=== PATIENT | male | born 1935 | race Caucasian/White ===

== ENCOUNTER 2017-06-15 07:26 | Day surgery (SDC) | payer OTHER, MEDICARE ==
[2017-06-13 13:03] VITALS: BMI 28.0
[2017-06-15] MEDS: TROPICAMIDE 1% OPHTH SOLN 15 ML BOTTLE ONE ×3 (08:45→08:55)
[2017-06-15] MEDS: PHENYLEPHRINE 2.5% OPHTH SOLN 15 ML BOTTLE ONE ×3 (08:45→08:55)
[2017-06-15] MEDS: CIPROFLOXACIN 0.3% EYE DROPS 5 ML BOTTLE ONE ×3 (08:45→08:55)
[2017-06-15] MEDS: CYCLOPENTOLATE 2% OPHTH SOLN 2 ML BOTTLE ONE ×3 (08:45→08:55)
[2017-06-15] MEDS ORDERED: BSS (NA/CA/MG/K) BALANCED SALT SOLUTION OPHTH SOLN 15 ML BOTTLE ONE (09:33)
[2017-06-15] MEDS ORDERED: LIDOCAINE 1% P/F 10 MG/ML VIAL ONE (09:33)
[2017-06-15] MEDS ORDERED: CARBACHOL 0.01% INTRA-OCULAR 1.5 ML VIAL ONE (09:33)
[2017-06-15] MEDS ORDERED: MIDAZOLAM HCL 2 MG/2 ML SINGLE DOSE VIAL ONE (09:38)
[2017-06-15 10:21] VITALS: PULSE 75; TEMP 98
[2017-06-15 10:55] VITALS: BP 110/64
--- NOTE | 2017-06-15 13:09 | OP ---
DATE OF OPERATION: 06/15/2017 OPERATIVE PROCEDURE: Lens phacoemulsification with posterior chamber intraocular lens placement right eye. PREOPERATIVE DIAGNOSIS: Visually significant cataract of right eye. POSTOPERATIVE DIAGNOSIS: Visually significant cataract of right eye. SURGEON: Jesus Mejia M.D. ANESTHESIA: MAC PROCEDURE: The patient was brought to the operating room and placed under monitored anesthesia care by Anesthesia. A drop of tetracaine was then placed over the right eye. The patient was then prepped and draped in the usual sterile manner. A speculum was then placed over the right eye. The eye was then well irrigated with copious amounts of BSS (balanced salt solution). The operating microscope was then moved into position. A paracentesis was performed using a 15 degree blade. At this point 0.5 mL of 1% preservative-free lidocaine was injected into the anterior chamber. Amvisc Plus was then injected into the anterior chamber. A clear corneal incision was then formed using a 2.2 mm keratome. A capsulorrhexis was then performed in a continuous circular fashion beginning with a cystotome and completed with Utrata forceps. Hydrodissection was then performed using BSS on a cannula. The phaco probe was then introduced through the corneal wound and the cataract was removed using the phaco chop technique. Approximately 3 seconds of absolute phaco time was used. The remaining cortex was then removed using irrigation and aspiration with an I/A probe. The capsule was then filled with regular Amvisc and the capsule was noted to be intact. A previously selected foldable posterior chamber intraocular lens was then injected into the capsule through the corneal wound using a lens injector. It was then dialed into position using a Sinskey hook. The Amvisc was then removed using irrigation and aspiration. Miostat was then injected through the paracentesis to constrict the pupil. The paracentesis and corneal wound were then hydrated and noted to be watertight. A drop of Maxitrol was then placed over the eye. The speculum was removed and clear shield was taped over the eye. The patient tolerated the procedure well and there were no surgical complications. The patient was asked to follow up in my office the next day. JESUS MEJIA M.D. DESTINY/[id number]
== END 2017-06-15 10:57 | disposition home or self-care (01) ==
LOC: FASU 07:26
PROVIDERS: ATTEND Ophthalmology
PROC: 08RJ3JZ Replacement of Right Lens with Synthetic Substitute, Percutaneous Approach (ICD-10-PCS; principal; 2017-06-15 09:52)
DX: H26.9 Unspecified cataract (principal)

== ENCOUNTER 2017-07-06 08:06 | Day surgery (SDC) | payer OTHER, MEDICARE ==
[2017-06-30 14:51] VITALS: BMI 28.0
[2017-07-06] MEDS: TROPICAMIDE 1% OPHTH SOLN 15 ML BOTTLE ONE ×3 (10:00→10:10)
[2017-07-06] MEDS: CYCLOPENTOLATE 2% OPHTH SOLN 2 ML BOTTLE ONE ×3 (10:00→10:10)
[2017-07-06] MEDS: CIPROFLOXACIN 0.3% EYE DROPS 5 ML BOTTLE ONE ×3 (10:00→10:10)
[2017-07-06] MEDS: PHENYLEPHRINE 2.5% OPHTH SOLN 15 ML BOTTLE ONE ×3 (10:00→10:10)
[2017-07-06 10:05] VITALS: PULSE 74
[2017-07-06] MEDS ORDERED: CARBACHOL 0.01% INTRA-OCULAR 1.5 ML VIAL ONE (10:11)
[2017-07-06] MEDS ORDERED: MIDAZOLAM HCL 2 MG/2 ML SINGLE DOSE VIAL ONE ×2 (11:36→11:37)
[2017-07-06 12:23] VITALS: BP 118/68; TEMP 98
--- NOTE | 2017-07-06 14:41 | OP ---
DATE OF OPERATION: 07/06/2017 OPERATIVE PROCEDURE: Lens phacoemulsification with posterior chamber intraocular lens placement, left eye. PREOPERATIVE DIAGNOSIS: Visually significant cataract of left eye. POSTOPERATIVE DIAGNOSIS: Visually significant cataract of left eye. SURGEON: Jesus Mejia MD ANESTHESIA: MAC. PROCEDURE: The patient was brought to the operating room and placed under monitored anesthesia care by Anesthesia. A drop of Tetracaine was then placed over the left eye. The patient was then prepped and draped in the usual sterile manner. A speculum was then placed over the left eye. The eye was then well irrigated with copious amounts of BSS (balanced salt solution). The operating microscope was then moved into position. A paracentesis was performed using a 15-degree blade. At this point, 0.5 mL of 1% preservative-free lidocaine was injected into the anterior chamber. Amvisc Plus was then injected into the anterior chamber. A clear corneal incision was then formed using a 2.2-mm keratome. A capsulorrhexis was then performed in a continuous circular fashion beginning with a cystotome, completed with an Utratas forceps. Hydrodissection was then performed using BSS on a cannula. The phaco probe was then introduced through the corneal wound and the cataract was removed using the phaco chop technique. Approximately 3 seconds of absolute phaco time was used. The remaining cortex was then removed using irrigation and aspiration with an I/A probe. he capsule was then filled with regular Amvisc and the capsule was noted to be intact. A previously selected foldable posterior chamber intraocular lens was then injected into the capsule through the corneal wound using a lens injector. It was then dialed into position using a Sinskey hook. The Amvisc was then removed using irrigation and aspiration. Miostat was then injected through the paracentesis to constrict the pupil. The paracentesis and corneal wound were then hydrated and noted to be watertight. A drop of Maxitrol was then placed over the eye. The speculum was removed and clear shield was taped over the eye. The patient tolerated the procedure well and there were no surgical complications. The patient was asked to follow up in my office the next day. JESUS MEJIA M.D. [id number]
== END 2017-07-06 12:41 | disposition home or self-care (01) ==
LOC: FASU 08:06
PROVIDERS: ATTEND Ophthalmology
PROC: 08RK3JZ Replacement of Left Lens with Synthetic Substitute, Percutaneous Approach (ICD-10-PCS; principal; 2017-07-06 11:37)
DX: H26.8 Other specified cataract (principal)

== ENCOUNTER 2017-09-11 07:24 | Inpatient (IN) | payer OTHER, MEDICARE ==
--- NOTE | 2017-09-11 07:30 | PDOC ---
History of Present Illness - General History Source: Patient, Old Records Exam Limitations: No Limitations - History of Present Illness Initial Comments: 09/11/17 07:48 The patient is a 82 year old male brought via EMS, with a significant past medical history of, who presents to the emergency department with cold like symptoms for the last 2 weeks. He reports that he has been having a fever during this time, which today was as high as 100.8 degrees F. He also reports dizziness, cough and chest pain when he coughs. He notes that his cough is productive of a white phlegm. He reports that he did experience nausea today and has noticed that his stool have been softer than usual. He states that he saw his PMD yesterday who told him he had a cold but that everything else was fine. He notes that he is currently experiencing shortness of breath because he became emotional as he came to the ED. The patient denies headache, chills, vomit, diarrhea and constipation. Denies dysuria, frequency, urgency and hematuria. Allergies: sertraline, lisinopril, penicillins, Pravachol, Zocor Past surgical history: Hernia repair, Aortic/Mitral valve replacement; CABG; AICD, left knee arthroscopic surgery. Social history: No alcohol, tobacco or drug use reported PMD: Dr. Hector Desai [place] Worker: Dr. 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) COPD: No CHF: Yes Dementia: No Diabetes: No GI Disorders: No Disorders: No HTN: Yes Hypercholesterolemia: Yes Liver Disease: No Seizures: No Thyroid Disease: Yes (Hypothyroid) - Surgical History Abdominal Surgery: No Appendectomy: No Cardiac Surgery: Yes (Aortic/Mitral valve replacement; CABG; AICD) Cholecystectomy: No Lung Surgery: No Neurologic Surgery: No Orthopedic Surgery: Yes (Left knee arthoscopy) - Immunization History Immunization Up to Date: Yes - Suicide/Smoking/Psychosocial Hx Smoking Status: Yes Smoking History: Never smoked Have you smoked in the past 12 months: No Number of Cigarettes Smoked Daily: 20 If you are a former smoker, when did you quit?: 4 years ago Hx Alcohol Use: No Drug/Substance Use Hx: No Substance Use Type: None Hx Substance Use Treatment: No <Adriana Johnson - Last Filed: 09/11/17 09:40> - Past Medical History Allergies/Adverse Reactions: Allergies Allergy/AdvReac Type Severity Reaction Status Date / Time lisinopril Allergy Intermediate Cough Verified 07/06/17 09:49 Penicillins Allergy Intermediate Rash Verified 07/06/17 09:49 pravastatin sodium Allergy Intermediate MUSCLE PAIN Verified 07/06/17 09:49 [From Pravachol] simvastatin [From Zocor] Allergy Intermediate MUSCLE PAIN Verified 07/06/17 09: 49 sertraline Allergy Unknown Verified 07/06/17 09:49 Home Medications: Ambulatory Orders Allopurinol [Zyloprim -] 300 mg PO DAILY 12/19/15 Aspirin [ASA -] 81 mg PO DAILY 12/19/15 Clopidogrel Bisulfate [Plavix -] 75 mg PO DAILY 12/19/15 Levothyroxine [Synthroid -] 25 mcg PO DAILY 12/19/15 Paroxetine HCl [Paxil -] 10 mg PO DAILY 12/19/15 Rosuvastatin [Crestor -] 20 mg PO HS 12/19/15 Carvedilol [Coreg -] 3.125 mg PO HS #30 tablet 03/12/16 Spironolactone [Aldactone -] 25 mg PO DAILY #30 tablet 03/12/16 Furosemide [Lasix -] 40 mg PO DAILY 06/30/16 Colesevelam HCl [Welchol (Nf)] 625 mg PO DAILY 06/13/17 Review of Systems - Review of Systems Able to Perform ROS?: Yes Comments:: 09/11/17 07:49 GENERAL/CONSTITUTIONAL: (+) Fever. No chills. No weakness. HEAD, EYES, EARS, NOSE AND THROAT: No change in vision. No ear pain or discharge. No sore throat.- CARDIOVASCULAR: (+) Shortness of breath and chest pain RESPIRATORY: (+) Cough. No wheezing, or hemoptysis. GASTROINTESTINAL: (+) Nausea. No vomiting, diarrhea or constipation. GENITOURINARY: No dysuria, frequency, or change in urination. MUSCULOSKELETAL: No joint or muscle swelling or pain. No neck or back pain. SKIN: No rash NEUROLOGIC: (+) Dizziness. No headache, loss of consciousness, or change in strength/sensation. ENDOCRINE: No increased thirst. No abnormal weight change HEMATOLOGIC/LYMPHATIC: No anemia, easy bleeding, or history of blood clots. ALLERGIC/IMMUNOLOGIC: No hives or skin allergy. <Doc Romero - Last Filed: 09/11/17 07:48> *Physical Exam - Vital Signs Last Vital Signs Temp Pulse Resp BP Pulse Ox 100.1 F H 97 H 20 132/78 94 L 09/11/17 07:33 09/11/17 07:33 09/11/17 07:33 09/11/17 07:33 09/11/17 07:33 - Physical Exam Comments: 09/11/17 07:49 GENERAL: Awake, alert, and fully oriented, in no acute distress HEAD: No signs of trauma, normocephalic, atraumatic EYES: PERRLA, EOMI, sclera anicteric, conjunctiva clear ENT: Auricles normal inspection, hearing grossly normal, nares patent, oropharynx clear without exudates. Moist mucosa NECK: Normal ROM, supple, no lymphadenopathy, JVD, or masses LUNGS: (+) Mild conversational dyspnea. Slight coarse breath sounds at the bases bilaterally. No distress, speaks full sentences. HEART: (+) Systolic murmur. Regular rate and rhythm, normal S1 and S2, no rubs or gallops, peripheral pulses normal and equal bilaterally. ABDOMEN: Soft, nontender, normoactive bowel sounds. No guarding, no rebound. No masses EXTREMITIES : Normal inspection, Normal range of motion, no edema. No clubbing or cyanosis. NEUROLOGICAL: Cranial nerves II through XII grossly intact. Normal speech, no focal sensorimotor deficits SKIN: Warm, Dry, normal turgor, no rashes or lesions noted. <Doc Romero - Last Filed: 09/11/17 07:48> Heart Score/ECG Review - ECG Intrepretation Comment:: 09/11/17 08:33 paced at 75, no acute st/t wave findings <Adriana Johnson Last Filed: 09/11/17 09:40> ED Treatment Course - LABORATORY CBC & Chemistry Diagram: 09/11/17 07:59 09/11/17 07:59 <Adriana Johnson - Last Filed: 09/11/17 09:40> Medical Decision Making - Medical Decision Making 09/11/17 08:30 a/p: 82yo male with 2 weeks cough/congestion/flu-like illness -running fevers x 2 week -flu swab -cxr -ekg -labs -cultures -suspect influenza vs pna vs mucopurulent bronchitis -will give tylenol in the ED -will start ivf hydration -will monitor and reassess 09/11/17 09:[address] Shipman who will see the patient in consult 09/11/17 09:39 case discussed with PMD - Dr. Desai who accepts pt to service will start levaquin given sputum production will admit pt updated and agrees with the plan <Adriana Johnson - Last Filed: 09/11/17 09:40> *DC/Admit/Observation/Transfer - Attestations Scribe Attestion: 09/11/17 07:51 Documentation prepared by Doc Romero, acting as emergency medical service coordinator for Adriana Johnson DO <Doc Romero - Last Filed: 09/11/17 07:48> - Attestations Physician Attestion: 09/11/17 09:40 I, Dr. Adriana Johnson DO, attest that this document has been prepared under my direction and personally reviewed by me in its entirety. I further attest, that it accurately reflects all work, treatment, procedures and medical decision -making performed by me. <Adriana Johnson - Last Filed: 09/11/17 09:40> Diagnosis at time of Disposition: Dyspnea, Elevated troponin, Fever - Referrals Referrals: Hector Desai MD [Primary Care Provider] - - Patient Instructions - Post Discharge Activity
[2017-09-11] MEDS ORDERED: SODIUM CHLORIDE 0.9% 1000 ML INFUS.BAG IV ONE ×2 (07:40→15:08)
[2017-09-11] MEDS ORDERED: ONDANSETRON 4 MG/2 ML VIAL IVPUSH ONE ×2 (07:40→15:09)
[2017-09-11] MEDS ORDERED: FAMOTIDINE 20 MG/50 ML IVPB 20 MG/50 ML MG IVPB ONE ×2 (07:40→09:35)
[2017-09-11] MEDS ORDERED: ONDANSETRON 4 MG/2 ML VIAL ONE ×2 (08:06→15:22)
[2017-09-11 08:29] LABS: INR 1.13 (0.82-1.09); PROTHROMBIN TIME (PATIENT) 12.8 SEC (9.98-11.88)
[2017-09-11 08:32] LABS: ACTIVATED PTT 29.5 SECONDS (26.9-34.4)
[2017-09-11 08:42] LABS: ALBUMIN 3.5 g/dl (3.4-5.0); ALK PHOS 85 U/L (45-117); ANION GAP 7 (8-16); BILIRUBIN,TOTAL 0.8 mg/dL (0.2-1.0); BLOOD UREA NITROGEN 28 mg/dL (7-18); CALCIUM 8.3 mg/dL (8.5-10.1); CHLORIDE 112 mmol/L (98-107); CO2 22 mmol/L (21-32); CREATININE 1.8 mg/dL (0.7-1.3); GLUCOSE,RANDOM 107 mg/dL (74-106); LIPASE 169 U/L (73-393); MAGNESIUM 1.5 mg/dL (1.8-2.4); POTASSIUM 5.2 mmol/L (3.5-5.1); SGOT/AST 52 U/L (15-37); SGPT/ALT 77 U/L (12-78); SODIUM 141 mmol/L (136-145); TOT PROT 6.9 g/dl (6.4-8.2)
[2017-09-11 08:56] LABS: N-TERMINAL BNP 14278.51 pg/ml (5-450)
[2017-09-11] MEDS ORDERED: ASPIRIN 81 MG CHEWABLE TABLETS PO ONE (09:05)
[2017-09-11] MEDS ORDERED: ACETAMINOPHEN 325 MG TABLET (FP) PO ONE (09:17)
[2017-09-11] MEDS ORDERED: ACETAMINOPHEN 325 MG TABLET (FP) ONE (09:35)
[2017-09-11] MEDS ORDERED: ASPIRIN 81 MG CHEWABLE TABLETS ONE (09:35)
[2017-09-11] MEDS ORDERED: LEVOFLOXACIN 500 MG IVPB 500 MG/100 ML BAG IVPB ONE ×2 (09:37→10:13)
--- NOTE | 2017-09-11 09:39 | CON.CARD ---
Consult Consult Specialty:: Cardiology Reason for Consultation:: sob elevated tni - History of Present Illness History of Present Illness: The patient is a 82 year old male brought via EMS, with a significant past medical history of, who presents to the emergency department with cold like symptoms for the last 2 weeks. He reports that he has been having a fever during this time, which today was as high as 100.8 degrees F. He also reports dizziness, cough and chest pain when he coughs. He notes that his cough is productive of a white phlegm. He reports that he did experience nausea today and has noticed that his stool have been softer than usual. He states that he saw his PMD yesterday who told him he had a cold but that everything else was fine. He notes that he is currently experiencing shortness of breath because he became emotional as he came to the ED. The patient denies headache, chills, vomit, diarrhea and constipation. Denies dysuria, frequency, urgency and hematuria. Allergies: sertraline, lisinopril, penicillins, Pravachol, Zocor Past surgical history: Hernia repair, Aortic/Mitral valve replacement; CABG; AICD, left knee arthroscopic surgery. Social history: No alcohol, tobacco or drug use reported PMD: Dr. 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 Hawkins PMH s/p bio AVR and MV repair as per HPI Ongoing medical problems [employer] AICD BIvi-pacing 2015 Dr. 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 No: Aneurysm, Aortic Insufficiency, Aortic Stenosis, CAD, Deep Vein Thrombosis, CT, Mitral Insufficiency, Mitral Stenosis, Pulmonary Hypertension, Other Renal/: Yes: Renal Inusuff (CKD (stage 1)). No: Renal Failure, BPH, Cancer, Hematuria, Hemodialysis, Neurogenic Bladder, Renal Calculi, UTI, Other Psych: Yes: Anxiety, Other (affective dz) Musculoskeletal: Yes: Osteoarthritis Rheumatology: Yes: Gout. No: Fibromyalgia, Lupus, Rheumatoid Arthritis, Sarcoidosis, Vasculitis, Other Endocrine: Yes: Hypothyroidism, Other (Gluc intolerance) - Past Surgical History Past Surgical History: Yes: Permanent Pacemaker, Valve Replacement. No: None, AAA Repair, AICD, Amputation, Appendectomy, Arthrosocopy, AV Fistula/Graft, Bariatric Surgery, Breast Biopsy, Bypass, CABG, Carotid Endarterectomy, Cataract Removal, Cholecystectomy, Colectomy, Colonoscopy, Colostomy, Craniotomy , , Cystectomy, Hernia Repair, Hysterectomy, Ileal Conduit, Ileosotomy , Joint Replacement, Kidney Transplant, Laminectomy, Liver Transplant, Mastectomy, Nephrectomy, Oopherectomy, Orchiectomy, Prostatectomy, Splenectomy, Stent, Thoracotomy, TURP, Tonsillectomy, Tubal Ligation, Upper Endoscopy, Vasectomy, Vein Stripping/Ligation - Alcohol/Substance Use Hx Alcohol Use: No History of Substance Use: reports: None - Smoking History Smoking history: Never smoked Have you smoked in the past 12 months: No Aproximately how many cigarettes per day: 20 If you are a former smoker, when did you quit?: 4 years ago - Social History ADL: Independent 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 History of Recent Travel: Yes (went to [place] 1 week ago) Home Medications - Allergies Allergies/Adverse Reactions: Allergies Allergy/AdvReac Type Severity Reaction Status Date / Time lisinopril Allergy Intermediate Cough Verified 07/06/17 09:49 Penicillins Allergy Intermediate Rash Verified 07/06/17 09:49 pravastatin sodium Allergy Intermediate MUSCLE PAIN Verified 07/06/17 09:49 [From Pravachol] simvastatin [From Zocor] Allergy Intermediate MUSCLE PAIN Verified 07/06/17 09: 49 sertraline Allergy Unknown Verified 07/06/17 09:49 - Home Medications Home Medications: Ambulatory Orders Allopurinol [Zyloprim -] 300 mg PO DAILY 12/19/15 Aspirin [ASA -] 81 mg PO DAILY 12/19/15 Clopidogrel Bisulfate [Plavix -] 75 mg PO DAILY 12/19/15 Levothyroxine [Synthroid -] 25 mcg PO DAILY 12/19/15 Paroxetine HCl [Paxil -] 10 mg PO DAILY 12/19/15 Rosuvastatin [Crestor -] 20 mg PO HS 12/19/15 Carvedilol [Coreg -] 3.125 mg PO HS #30 tablet 03/12/16 Spironolactone [Aldactone -] 25 mg PO DAILY #30 tablet 03/12/16 Furosemide [Lasix -] 40 mg PO DAILY 06/30/16 Colesevelam HCl [Welchol (Nf)] 625 mg PO DAILY 06/13/17 Family Disease History - Family Disease History Family Disease History: Diabetes: Mother, Heart Disease: Mother Review of Systems - Review of Systems Constitutional: reports: No Symptoms Eyes: reports: No Symptoms HENT: reports: No Symptoms Neck: reports: No Symptoms Cardiovascular: reports: No Symptoms, Shortness of Breath Gastrointestinal: reports: No Symptoms Genitourinary: reports: No Symptoms Breasts: reports: No Symptoms Reported Musculoskeletal: reports: No Symptoms Integumentary: reports: No Symptoms Neurological: reports: No Symptoms Endocrine: reports: No Symptoms Hematology/Lymphatic: reports: No Symptoms Psychiatric: reports: No Symptoms Vital Signs: Vital Signs Temperature 100.1 F H 09/11/17 07:33 Pulse Rate 97 H 09/11/17 07:33 Respiratory Rate 20 09/11/17 07:33 Blood Pressure 132/78 09/11/17 07:33 O2 Sat by Pulse Oximetry (%) 97 09/11/17 08:18 Constitutional: Yes: Well Nourished, No Distress, Calm Eyes: Yes: WNL, Conjunctiva Clear, EOM Intact HENT: Yes: WNL, Atraumatic, Normocephalic Neck: Yes: WNL, Supple, Trachea Midline Respiratory: Yes: WNL, Regular, CTA Bilaterally Gastrointestinal: Yes: WNL, Normal Bowel Sounds Renal/: Yes: WNL Cardiovascular: Yes: WNL, Regular Rate and Rhythm Musculoskeletal: Yes: WNL Extremities: Yes: WNL Integumentary: Yes: WNL Neurological: Yes: WNL, Alert, Oriented ...Motor Strength: WNL Psychiatric: Yes: WNL, Alert, Oriented - Other Data Labs, Other Data: CBC, BMP 09/11/17 07:59 INR, PTT INR 1.13 (0.82-1.09) 09/11/17 07:59 Troponin, BNP 09/11/17 09/11/17 07:59 07:59 Troponin I 3.33 H* D B-Natriuretic Peptide 95811.51 H Cancelled Troponin, BNP 09/11/17 09/11/17 07:59 07:59 Troponin I 3.33 H* D B-Natriuretic Peptide 35476.51 H Cancelled Imaging - Results Chest X-ray: Image Reviewed (no i/e) EKG: Image Reviewed (bivi pacing) Problem List - Problems (1) Arteriosclerotic heart disease (ASHD) Code(s): I25.10 - ATHSCL HEART DISEASE OF [place] CORONARY ARTERY W/O ANG PCTRS (2) Dyspnea Code(s): R06.00 - DYSPNEA, UNSPECIFIED (3) Elevated troponin Code(s): R74.8 - ABNORMAL LEVELS OF OTHER SERUM ENZYMES (4) Fever Code(s): R50.9 - FEVER, UNSPECIFIED (5) Hypothyroid Code(s): E03.9 - HYPOTHYROIDISM, UNSPECIFIED Qualifiers: Hypothyroidism type: acquired Qualified Code(s): E03.9 - Hypothyroidism, unspecified (6) Sepsis Code(s): A41.9 - SEPSIS, UNSPECIFIED ORGANISM Qualifiers: Sepsis type: sepsis due to unspecified organism Qualified Code(s): A41.9 - Sepsis, unspecified organism (7) AICD (automatic cardioverter/defibrillator) present Code(s): Z95.810 - PRESENCE OF AUTOMATIC (IMPLANTABLE) CARDIAC DEFIBRILLATOR (8) Acute exacerbation of CHF (congestive heart failure) Code(s): I50.9 - HEART FAILURE, UNSPECIFIED (9) Acute exacerbation of congestive heart failure Code(s): I50.9 - HEART FAILURE, UNSPECIFIED Qualifiers: (10) Acute on chronic combined systolic and diastolic CHF, NYHA class 3 Code(s): I50.43 - ACUTE ON CHRONIC COMBINED SYSTOLIC AND DIASTOLIC HRT FAIL (11) Acute on chronic renal failure Code(s): N17.9 - ACUTE KIDNEY FAILURE, UNSPECIFIED; N18.9 - CHRONIC KIDNEY DISEASE, UNSPECIFIED Qualifiers: Acute renal failure type: unspecified Chronic kidney disease stage: stage 2 (mild) Qualified Code(s): N17.9 - Acute kidney failure, unspecified; N18.2 - Chronic kidney disease, stage 2 (mild); N18.2 - Chronic kidney disease, stage 2 (mild) (12) Acute on chronic systolic and diastolic heart failure, NYHA class 1 Code(s): I50.43 - ACUTE ON CHRONIC COMBINED SYSTOLIC AND DIASTOLIC HRT FAIL (13) Angioneurotic edema Code(s): T78.3XXA - ANGIONEUROTIC EDEMA, INITIAL ENCOUNTER Qualifiers: Encounter type: sequela Qualified Code(s): T78.3XXS - Angioneurotic edema, sequela (14) Anxiety and depression Code(s): F41.9 - ANXIETY DISORDER, UNSPECIFIED; F32.9 - MAJOR DEPRESSIVE DISORDER, SINGLE EPISODE, UNSPECIFIED (15) Aortic stenosis Code(s): I35.0 - NONRHEUMATIC AORTIC (VALVE) STENOSIS (16) Aortic valve replaced Code(s): Z95.2 - PRESENCE OF PROSTHETIC HEART VALVE (17) Arm swelling Code(s): M79.89 - OTHER SPECIFIED SOFT TISSUE DISORDERS (18) Artificial cardiac pacemaker Code(s): Z95.0 - PRESENCE OF CARDIAC PACEMAKER (19) Aspirin long-term use Code(s): Z79.82 - SIGNWRITER (CURRENT) USE OF ASPIRIN (20) CAD (coronary artery disease) Code(s): I25.10 - ATHSCL HEART DISEASE OF [place] CORONARY ARTERY W/O ANG PCTRS (21) CHF (congestive heart failure) Code(s): I50.9 - HEART FAILURE, UNSPECIFIED Qualifiers: Congestive heart failure type: diastolic Congestive heart failure chronicity: chronic Qualified Code(s): I50.32 - Chronic diastolic (congestive ) heart failure (22) Carotid artery disease Code(s): I77.9 - DISORDER OF ARTERIES AND ARTERIOLES, UNSPECIFIED Qualifiers: Laterality: left Qualified Code(s): I77.9 - Disorder of arteries and arterioles, unspecified (23) Carotid occlusion, left Code(s): I65.22 - OCCLUSION AND STENOSIS OF LEFT CAROTID ARTERY (24) Chronic renal insufficiency Code(s): N18.9 - CHRONIC KIDNEY DISEASE, UNSPECIFIED (25) DVT prophylaxis Code(s): [id number] - (26) Dysthymia (or depressive neurosis) Code(s): F34.1 - DYSTHYMIC DISORDER (27) Epigastric abdominal pain Code(s): R10.13 - EPIGASTRIC PAIN (28) Fluid collection (edema) in the arms, legs, hands and feet Code(s): R60.0 - LOCALIZED EDEMA (29) Gout Code(s): M10.9 - GOUT, UNSPECIFIED Qualifiers: Gout etiology: unspecified cause Presence of tophus: without tophus (30) Hyperlipidemia Code(s): E78.5 - HYPERLIPIDEMIA, UNSPECIFIED Qualifiers: Hyperlipidemia type: unspecified (31) Hypertensive heart and chronic kidney disease with heart failure and stage 1 through stage 4 chronic kidney disease, or chronic kidney disease Code(s): I13.0 - HYP HRT & CHR KDNY DIS W HRT FAIL AND STG 1-4/UNSP CHR KDNY; I50.9 - HEART FAILURE, UNSPECIFIED; N18.9 - CHRONIC KIDNEY DISEASE, UNSPECIFIED (32) 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 Code(s): I13.10 - HYP HRT & CHR KDNY DIS W/O HRT FAIL, W STG 1-4/UNSP CHR KDNY (33) Hyperuricemia Code(s): E79.0 - HYPERURICEMIA W/O SIGNS OF INFLAM ARTHRIT AND TOPHACEOUS DIS (34) Hypothyroid Code(s): E03.9 - HYPOTHYROIDISM, UNSPECIFIED Qualifiers: (35) ICD (implantable cardioverter-defibrillator) in place Code(s): Z95.810 - PRESENCE OF AUTOMATIC (IMPLANTABLE) CARDIAC DEFIBRILLATOR (36) Leg swelling Code(s): M79.89 - OTHER SPECIFIED SOFT TISSUE DISORDERS (37) Lipid disorder Code(s): E78.9 - DISORDER OF LIPOPROTEIN METABOLISM, UNSPECIFIED (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) Code(s): D47.2 - MONOCLONAL GAMMOPATHY (39) Nosebleed Code(s): R04.0 - EPISTAXIS (40) PAD (peripheral artery disease) Code(s): I73.9 - PERIPHERAL VASCULAR DISEASE, UNSPECIFIED (41) Pneumonia Code(s): J18.9 - PNEUMONIA, UNSPECIFIED ORGANISM Qualifiers: (42) Presence of combination internal cardiac defibrillator (ICD) and pacemaker Code(s): Z95.810 - PRESENCE OF AUTOMATIC (IMPLANTABLE) CARDIAC DEFIBRILLATOR (43) Proteinuria Code(s): R80.9 - PROTEINURIA, UNSPECIFIED Qualifiers: Proteinuria type: persistent Qualified Code(s): R80.1 - Persistent proteinuria, unspecified (44) Renal insufficiency Code(s): N28.9 - DISORDER OF KIDNEY AND URETER, UNSPECIFIED (45) Status cardiac pacemaker Code(s): Z95.0 - PRESENCE OF CARDIAC PACEMAKER (46) Status post mitral valve annuloplasty Code(s): Z98.89 - OTHER SPECIFIED POSTPROCEDURAL STATES * DO NOT USE * (47) Thrombophlebitis Code(s): I80.9 - PHLEBITIS AND THROMBOPHLEBITIS OF UNSPECIFIED SITE (48) Transaminitis Code(s): R74.0 - NONSPEC ELEV OF LEVELS OF TRANSAMNS & LACTIC ACID DEHYDRGNSE Assessment/Plan fever sob decompensated chf systolic elevted tnis s/p bio AVR and MV repair as per HPI [employer] AICD BIvi-pacing 2015 Dr. 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 2014 Plan; abx IV lasix telemetry serial cardiac enzymes
[2017-09-11] MEDS ORDERED: FUROSEMIDE 40 MG/4 ML INJECTABLE VIAL IVPUSH ONE (10:00)
[2017-09-11 10:07] LABS: BASO % 0.3 % (0-2.0); EOS % 0.7 % (0-4.5); HEMATOCRIT 43.3 % (35.4-49); HEMOGLOBIN 13.8 GM/dL (11.7-16.9); LYMPH % 11.4 % (8-40); MCH 30.7 pg (25.7-33.7); MCHC 31.9 g/dl (32.0-35.9); MEAN PLT VOLUME 8.9 fl (7.5-11.1); MONO % 8.7 % (3.8-10.2); NEUT % 78.9 % (42.8-82.8); PLATELET COUNT 146 K/MM3 (134-434); RBC 4.51 M/mm3 (4.00-5.60); RDW 15.6 % (11.9-15.9); WHITE BLOOD COUNT 9.7 K/mm3 (4.0-10.0)
[2017-09-11] MEDS ORDERED: FUROSEMIDE 40 MG/4 ML INJECTABLE VIAL ONE (10:13)
[2017-09-11 11:52] LABS: URINE APPEARANCE CLEAR; URINE BILIRUBIN NEGATIVE (NEGATIVE); URINE BLOOD NEGATIVE (NEGATIVE); URINE COLOR YELLOW; URINE GLUCOSE (UA) NEGATIVE (NEGATIVE); URINE KETONE NEGATIVE (NEGATIVE); URINE LEUK ESTERASE NEGATIVE (NEGATIVE); URINE NITRITE NEGATIVE (NEGATIVE); URINE UROBILINOGEN NEGATIVE mg/dL (0.2-1.0)
[2017-09-11 11:55] LABS: URINE PROTEIN 1+ (NEGATIVE)
[2017-09-11 11:57] LABS: EPI CELLS RARE /HPF (FEW); URINE HYALINE CAST 1 /lpf; URINE MUCUS RARE
--- NOTE | 2017-09-11 12:45 | HP ---
Admitting History and Physical - Primary Care Physician PCP: Hector Desai - Admission Chief Complaint: fever; dizziness cough History of Present Illness: The patient is a 82 year old male brought via EMS, with a significant past medical history of HTN with ASHD/CRI, who presents to the emergency department with abrupt onset of cough; chills, fever; dizziness, nausea, malaise which developed suddenly in the early hours of this morning. Prior to this, he was suffering from a sinusitis (symptoms mainly affecting the nose & sinuses) for the past 10 days; however, he did not have fever; malaise, nausea or diarrhea. He did have a mild cough but not as severe as what he described prior to admission. He notes that his cough is productive of a white phlegm. He reports that he did experience nausea today and has noticed that his stool have been softer than usual. He was seen in the office on , at which time he did not have a fever, and was not ill or toxic appearing. History Source: Patient Limitations to Obtaining History: No Limitations - Past Medical History COUNTER HAND: Yes: TIA Cardiovascular: Yes: CHF, HTN, Hyperlipdemia, Murmur. No: Aneurysm, Aortic Insufficiency, Aortic Stenosis, CAD, Deep Vein Thrombosis, MT, Mitral Insufficiency, Mitral Stenosis, Pulmonary Hypertension, Other Renal/: Yes: Renal Inusuff (CKD (stage 1)). No: Renal Failure, BPH, Cancer, Hematuria, Hemodialysis, Neurogenic Bladder, Renal Calculi, UTI, Other Heme/Onc: Yes: Other (MGUS) Psych: Yes: Anxiety, Other (affective dz) Musculoskeletal: Yes: Osteoarthritis Rheumatology: Yes: Gout. No: Fibromyalgia, Lupus, Rheumatoid Arthritis, Sarcoidosis, Vasculitis, Other Endocrine: Yes: Hypothyroidism, Other (Gluc intolerance) - Past Surgical History Past Surgical History: Yes: Permanent Pacemaker, Valve Replacement. No: None, AAA Repair, AICD, Amputation, Appendectomy, Arthrosocopy, AV Fistula/Graft, Bariatric Surgery, Breast Biopsy, Bypass, CABG, Carotid Endarterectomy, Cataract Removal, Cholecystectomy, Colectomy, Colonoscopy, Colostomy, Craniotomy , , Cystectomy, Hernia Repair, Hysterectomy, Ileal Conduit, Ileosotomy , Joint Replacement, Kidney Transplant, Laminectomy, Liver Transplant, Mastectomy, Nephrectomy, Oopherectomy, Orchiectomy, Prostatectomy, Splenectomy, Stent, Thoracotomy, TURP, Tonsillectomy, Tubal Ligation, Upper Endoscopy, Vasectomy, Vein Stripping/Ligation - Smoking History Smoking history: Never smoked Have you smoked in the past 12 months: No - Alcohol/Substance Use Hx Alcohol Use: No History of Substance Use: reports: None - Social History Usual Living Arrangement: Yes: Alone ADL: Independent 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 History of Recent Travel: Yes (went to [place] 1 week ago) Home Medications - Allergies Allergies/Adverse Reactions: Allergies Allergy/AdvReac Type Severity Reaction Status Date / Time lisinopril Allergy Intermediate Cough Verified 07/06/17 09:49 Penicillins Allergy Intermediate Rash Verified 07/06/17 09:49 pravastatin sodium Allergy Intermediate MUSCLE PAIN Verified 07/06/17 09:49 [From Pravachol] simvastatin [From Zocor] Allergy Intermediate MUSCLE PAIN Verified 07/06/17 09: 49 sertraline Allergy Unknown Verified 07/06/17 09:49 - Home Medications Home Medications: Ambulatory Orders Allopurinol [Zyloprim -] 300 mg PO DAILY 12/19/15 Aspirin [ASA -] 81 mg PO DAILY 12/19/15 Clopidogrel Bisulfate [Plavix -] 75 mg PO DAILY 12/19/15 Levothyroxine [Synthroid -] 25 mcg PO DAILY 12/19/15 Paroxetine HCl [Paxil -] 10 mg PO DAILY 12/19/15 Rosuvastatin [Crestor -] 20 mg PO HS 12/19/15 Carvedilol [Coreg -] 3.125 mg PO HS #30 tablet 03/12/16 Spironolactone [Aldactone -] 25 mg PO DAILY #30 tablet 03/12/16 Furosemide [Lasix -] 40 mg PO DAILY 06/30/16 Colesevelam HCl [Welchol (Nf)] 625 mg PO DAILY 06/13/17 Family Disease History - Family Disease History Family Disease History: Diabetes: Mother, Heart Disease: Mother Review of Systems - Review of Systems Constitutional: reports: Chills, Diaphoresis, Fever, Lethargy, Weakness Eyes: reports: No Symptoms HENT: reports: Nasal Congestion Neck: reports: No Symptoms Cardiovascular: reports: Shortness of Breath Respiratory: reports: Cough, SOB on Exertion Gastrointestinal: reports: Nausea Genitourinary: reports: No Symptoms Musculoskeletal: reports: Muscle Pain Integumentary: reports: No Symptoms Neurological: reports: Weakness (no focal deficits,coherent) Psychiatric: reports: Anxiety Physical Examination Vital Signs: Vital Signs Temperature 100.1 F H 09/11/17 07:33 Pulse Rate 75 09/11/17 12:06 Respiratory Rate 15 09/11/17 12:06 Blood Pressure 100/69 09/11/17 12:06 O2 Sat by Pulse Oximetry (%) 97 09/11/17 12:06 Findings/Remarks: skin--no acute lesions; old excoriations LLE head--NC eyes--eomi; anciteric; cataracts oral--no mucosal lesions appreciated neck--supple lungs--dimnished but clear bilat heart--RR abd--soft, BS quiet, NT ND ext--no CCE; ROM without pain, no soft tissue tenderness; no ischemic changes; pedal pulses bilat faint neuro--alert; coherent; but unsettled; follows commands; fully lucid; thoughts well organized; speech clear; no gross moteor/sen deficits; no rigidity or tremors Labs: CBC, BMP 09/11/17 07:59 09/11/17 07:59 Imaging - Results Chest X-ray: Report Reviewed EKG: Report Reviewed Problem List - Problems (1) Sepsis Assessment/Plan: based on clinical presentation of acute fever; dizziness, malaise. Nasal swab is negative for INfluenza; cause or organism unclear at this time; cultures taken, and started on Lavaquin. Code(s): A41.9 - SEPSIS, UNSPECIFIED ORGANISM Qualifiers: Sepsis type: sepsis due to unspecified organism Qualified Code(s): A41.9 - Sepsis, unspecified organism (2) Elevated troponin Assessment/Plan: unsure if this is a spurious elevation or if anyway associated with current acute condition (superimposed on acute febrile illness). PLAn follow serial enzymes Code(s): R74.8 - ABNORMAL LEVELS OF OTHER SERUM ENZYMES (3) AICD (automatic cardioverter/defibrillator) present Assessment/Plan: stable; has not fired Code(s): Z95.810 - PRESENCE OF AUTOMATIC (IMPLANTABLE) CARDIAC DEFIBRILLATOR (4) Acute on chronic renal failure Assessment/Plan: Bun/Cr stable Code(s): N17.9 - ACUTE KIDNEY FAILURE, UNSPECIFIED; N18.9 - CHRONIC KIDNEY DISEASE, UNSPECIFIED Qualifiers: Acute renal failure type: unspecified Chronic kidney disease stage: stage 2 (mild) Qualified Code(s): N17.9 - Acute kidney failure, unspecified; N18.2 - Chronic kidney disease, stage 2 (mild); N18.2 - Chronic kidney disease, stage 2 (mild) (5) Angioneurotic edema Assessment/Plan: no acute edema; but cannot take RADHA/ARBs Code(s): T78.3XXA - ANGIONEUROTIC EDEMA, INITIAL ENCOUNTER Qualifiers: Encounter type: sequela Qualified Code(s): T78.3XXS - Angioneurotic edema, sequela (6) MGUS (monoclonal gammopathy of unknown significance) Assessment/Plan: chronic; stable Code(s): D47.2 - MONOCLONAL GAMMOPATHY (7) Carotid occlusion, left Assessment/Plan: longstanding; on asa/plavix Code(s): I65.22 - OCCLUSION AND STENOSIS OF LEFT CAROTID ARTERY (8) Arteriosclerotic heart disease (ASHD) Assessment/Plan: elevation of BNP; but CXR does not show any heart failure (diastolic dysf???); as the TN is high: PLAN cont cardiac meds Code(s): I25.10 - ATHSCL HEART DISEASE OF [place] CORONARY ARTERY W/O ANG PCTRS (9) Dysthymia (or depressive neurosis) Assessment/Plan: cont SSRI Code(s): F34.1 - DYSTHYMIC DISORDER (10) Proteinuria Assessment/Plan: stable; not new Code(s): R80.9 - PROTEINURIA, UNSPECIFIED Qualifiers: Proteinuria type: persistent Qualified Code(s): R80.1 - Persistent proteinuria, unspecified (11) Aortic valve replaced Assessment/Plan: stable; followed by Cardiology Code(s): Z95.2 - PRESENCE OF PROSTHETIC HEART VALVE (12) Gout Assessment/Plan: no active gout; controlled with allopurino Code(s): M10.9 - GOUT, UNSPECIFIED Qualifiers: Gout etiology: unspecified cause Presence of tophus: without tophus (13) Hypothyroid Assessment/Plan: TFTs okay; on supplement Code(s): E03.9 - HYPOTHYROIDISM, UNSPECIFIED Qualifiers: Hypothyroidism type: acquired Qualified Code(s): E03.9 - Hypothyroidism, unspecified (14) Hyperlipidemia Assessment/Plan: controlled with statin Code(s): E78.5 - HYPERLIPIDEMIA, UNSPECIFIED Qualifiers: Hyperlipidemia type: unspecified Assessment/Plan 82 y/o M with chronic heart disease and multiple other co-morbidities whoi presents acutely ill suugestive of a septic condition, with elevated TNI ```````````````````````````````````````` Dr Desai
[2017-09-11] MEDS ORDERED: ALBUTEROL SO4 0.042% IH SOL 1.25 MG/3 ML VIAL.NEB NEB PRN (13:17)
[2017-09-11] MEDS: ROSUVASTATIN CA 10 MG TABLET (FP) PO SCH (22:27)
[2017-09-12] MEDS ORDERED: FUROSEMIDE 40 MG/4 ML INJECTABLE VIAL ONE (06:40)
[2017-09-12] MEDS: FUROSEMIDE 40 MG/4 ML INJECTABLE VIAL IVPUSH SCH ×2 (06:48→14:59)
[2017-09-12 08:18] LABS: HEMATOCRIT 40.1 % (35.4-49); HEMOGLOBIN 12.9 GM/dL (11.7-16.9); MCH 30.9 pg (25.7-33.7); MCHC 32.1 g/dl (32.0-35.9); MEAN CELL VOLUME 96.3 fl (80-96); MEAN PLT VOLUME 8.9 fl (7.5-11.1); PLATELET COUNT 130 K/MM3 (134-434); RBC 4.17 M/mm3 (4.00-5.60); RDW 15.8 % (11.9-15.9); WHITE BLOOD COUNT 8.7 K/mm3 (4.0-10.0)
[2017-09-12 08:32] LABS: CHLORIDE 109 mmol/L (98-107); POTASSIUM 4.9 mmol/L (3.5-5.1); SODIUM 141 mmol/L (136-145)
[2017-09-12] MEDS: LEVOTHYROXINE NA 25 MCG TABLET (FP) PO SCH (08:52)
[2017-09-12 09:04] LABS: ALBUMIN 3.2 g/dl (3.4-5.0); ANION GAP 11 (8-16); BILIRUBIN,TOTAL 1.1 mg/dL (0.2-1.0); BLOOD UREA NITROGEN 28 mg/dL (7-18); CALCIUM 8.6 mg/dL (8.5-10.1); CO2 21 mmol/L (21-32); GLUCOSE,RANDOM 86 mg/dL (74-106); SGOT/AST 29 U/L (15-37); SGPT/ALT 51 U/L (12-78); TOT PROT 6.5 g/dl (6.4-8.2)
[2017-09-12 09:13] LABS: ALK PHOS 72 U/L (45-117); URIC ACID 3.2 mg/dL (2.6-7.2)
[2017-09-12] MEDS ORDERED: FUROSEMIDE 40 MG TABLET (FP) PO SCH (10:00)
[2017-09-12] MEDS: ASPIRIN COATED 81 MG TABLET.EC PO SCH (10:10)
[2017-09-12] MEDS: CLOPIDOGREL BISULFATE 75 MG TABLET (FP) PO SCH (10:10)
[2017-09-12] MEDS: ALLOPURINOL 300 MG TABLET (FP) PO SCH (10:10)
[2017-09-12] MEDS: PARoxetine HCL 10 MG TABLET (FP) PO SCH (10:10)
[2017-09-12] MEDS: LEVOFLOXACIN 250 MG IVPB 250 MG/50 ML MG IVPB SCH (10:10)
[2017-09-12] MEDS ORDERED: ALBUTEROL SO4 0.083% IH SOL 2.5 MG/3 ML VIAL.NEB. NEB ONE (10:11)
[2017-09-12] MEDS ORDERED: LEVOFLOXACIN 250 MG IVPB 250 MG/50 ML MG IVPB ONE (10:12)
[2017-09-12 10:48] VITALS: BMI 28.0
--- NOTE | 2017-09-12 11:33 | EKG ---
Test Reason : Blood Pressure : / mmHG Vent. Rate : 075 BPM Atrial Rate : 075 BPM P-R Int : 248 ms QRS Dur : 170 ms QT Int : 462 ms P-R-T Axes : 078 111 -70 degrees QTc Int : 515 ms AV dual-paced rhythm with prolonged AV conduction ABNORMAL ECG WHEN COMPARED WITH ECG OF 30-JUN-2016 12:34, ELECTRONIC VENTRICULAR PACEMAKER HAS REPLACED SINUS RHYTHM Confirmed by HANNAH MARTIN MD ([id number]) on 09/12/2017 11:33:11 AM Referred By: Confirmed By:HANNAH MARTIN MD
--- NOTE | 2017-09-12 12:22 | PN ---
Progress Note, Physician History of Present Illness: The patient is a 82 year old male brought via EMS, with a significant past medical history of, who presents to the emergency department with cold like symptoms for the last 2 weeks. He reports that he has been having a fever during this time, which today was as high as 100.8 degrees F. He also reports dizziness, cough and chest pain when he coughs. He notes that his cough is productive of a white phlegm. He reports that he did experience nausea today and has noticed that his stool have been softer than usual. He states that he saw his PMD yesterday who told him he had a cold but that everything else was fine. He notes that he is currently experiencing shortness of breath because he became emotional as he came to the ED. The patient denies headache, chills, vomit, diarrhea and constipation. Denies dysuria, frequency, urgency and hematuria. Allergies: sertraline, lisinopril, penicillins, Pravachol, Zocor Past surgical history: Hernia repair, Aortic/Mitral valve replacement; CABG; AICD, left knee arthroscopic surgery. Social history: No alcohol, tobacco or drug use reported PMD: Dr. 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 Hawkins PMH s/p bio AVR and MV repair as per HPI Ongoing medical problems [employer] AICD BIvi-pacing 2015 Dr. 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 2014 - Current Medication List Current Medications: Active Medications Albuterol Sulfate (Ventolin 0.042trength) -) 1 amp NEB Q6H PRN PRN Reason: SHORT OF BREATH/WHEEZING Allopurinol (Zyloprim -) 300 mg PO DAILY [facility] Last Admin: 09/12/17 10:10 Dose: 300 mg Aspirin (Ecotrin -) 81 mg PO DAILY [facility] Last Admin: 09/12/17 10:10 Dose: 81 mg Clopidogrel Bisulfate (Plavix -) 75 mg PO DAILY [facility] Last Admin: 09/12/17 10:10 Dose: 75 mg Furosemide (Lasix Injection -) 40 mg IVPUSH BID@0600,1400 [facility] Last Admin: 09/12/17 06:48 Dose: 40 mg Levofloxacin (Levaquin 250 Mg Premixed Ivpb -) 250 mg in 50 mls @ 50 mls/hr IVPB DAILY [facility] Last Admin: 09/12/17 10:10 Dose: 50 mls/hr Levothyroxine Sodium (Synthroid -) 25 mcg PO DAILY@0700 [facility] Last Admin: 09/12/17 08:52 Dose: 25 mcg Paroxetine HCl (Paxil -) 10 mg PO DAILY [facility] Last Admin: 09/12/17 10:10 Dose: 10 mg Rosuvastatin Calcium (Crestor -) 10 mg PO HS [facility] Last Admin: 09/11/17 22:27 Dose: 10 mg - Objective Vital Signs: Vital Signs Temperature 98.7 F 09/12/17 10:10 Pulse Rate 74 09/12/17 10:10 Respiratory Rate 18 09/12/17 10:10 Blood Pressure 104/52 09/12/17 10:10 O2 Sat by Pulse Oximetry (%) 96 09/12/17 10:10 Eyes: Yes: WNL, Conjunctiva Clear, EOM Intact HENT: Yes: WNL, Atraumatic, Normocephalic Neck: Yes: WNL, Supple, Trachea Midline Cardiovascular: Yes: WNL, Regular Rate and Rhythm Respiratory: Yes: WNL, Regular, CTA Bilaterally Gastrointestinal: Yes: WNL, Normal Bowel Sounds Genitourinary: Yes: WNL Musculoskeletal: Yes: WNL Extremities: Yes: WNL Edema: Yes Integumentary: Yes: WNL Neurological: Yes: WNL, Alert, Oriented ...Motor Strength: WNL Psychiatric: Yes: WNL Labs: CBC, BMP 09/12/17 07:30 09/12/17 07:30 INR, PTT INR 1.13 (0.82-1.09) 09/11/17 07:59 Problem List - Problems (1) Arteriosclerotic heart disease (ASHD) Code(s): I25.10 - ATHSCL HEART DISEASE OF [place] CORONARY ARTERY W/O ANG PCTRS (2) Dyspnea Code(s): R06.00 - DYSPNEA, UNSPECIFIED (3) Elevated troponin Code(s): R74.8 - ABNORMAL LEVELS OF OTHER SERUM ENZYMES (4) Fever Code(s): R50.9 - FEVER, UNSPECIFIED (5) Hypothyroid Code(s): E03.9 - HYPOTHYROIDISM, UNSPECIFIED Qualifiers: Hypothyroidism type: acquired Qualified Code(s): E03.9 - Hypothyroidism, unspecified (6) Sepsis Code(s): A41.9 - SEPSIS, UNSPECIFIED ORGANISM Qualifiers: Sepsis type: sepsis due to unspecified organism Qualified Code(s): A41.9 - Sepsis, unspecified organism (7) AICD (automatic cardioverter/defibrillator) present Code(s): Z95.810 - PRESENCE OF AUTOMATIC (IMPLANTABLE) CARDIAC DEFIBRILLATOR (8) Acute exacerbation of CHF (congestive heart failure) Code(s): I50.9 - HEART FAILURE, UNSPECIFIED (9) Acute exacerbation of congestive heart failure Code(s): I50.9 - HEART FAILURE, UNSPECIFIED Qualifiers: (10) Acute on chronic combined systolic and diastolic CHF, NYHA class 3 Code(s): I50.43 - ACUTE ON CHRONIC COMBINED SYSTOLIC AND DIASTOLIC HRT FAIL (11) Acute on chronic renal failure Code(s): N17.9 - ACUTE KIDNEY FAILURE, UNSPECIFIED; N18.9 - CHRONIC KIDNEY DISEASE, UNSPECIFIED Qualifiers: Acute renal failure type: unspecified Chronic kidney disease stage: stage 2 (mild) Qualified Code(s): N17.9 - Acute kidney failure, unspecified; N18.2 - Chronic kidney disease, stage 2 (mild); N18.2 - Chronic kidney disease, stage 2 (mild) (12) Acute on chronic systolic and diastolic heart failure, NYHA class 1 Code(s): I50.43 - ACUTE ON CHRONIC COMBINED SYSTOLIC AND DIASTOLIC HRT FAIL (13) Angioneurotic edema Code(s): T78.3XXA - ANGIONEUROTIC EDEMA, INITIAL ENCOUNTER Qualifiers: Encounter type: sequela Qualified Code(s): T78.3XXS - Angioneurotic edema, sequela (14) Anxiety and depression Code(s): F41.9 - ANXIETY DISORDER, UNSPECIFIED; F32.9 - MAJOR DEPRESSIVE DISORDER, SINGLE EPISODE, UNSPECIFIED (15) Aortic stenosis Code(s): I35.0 - NONRHEUMATIC AORTIC (VALVE) STENOSIS (16) Aortic valve replaced Code(s): Z95.2 - PRESENCE OF PROSTHETIC HEART VALVE (17) Arm swelling Code(s): M79.89 - OTHER SPECIFIED SOFT TISSUE DISORDERS (18) Artificial cardiac pacemaker Code(s): Z95.0 - PRESENCE OF CARDIAC PACEMAKER (19) Aspirin long-term use Code(s): Z79.82 - WOOD ROOM HAND (CURRENT) USE OF ASPIRIN (20) CAD (coronary artery disease) Code(s): I25.10 - ATHSCL HEART DISEASE OF [place] CORONARY ARTERY W/O ANG PCTRS (21) CHF (congestive heart failure) Code(s): I50.9 - HEART FAILURE, UNSPECIFIED Qualifiers: Congestive heart failure type: diastolic Congestive heart failure chronicity: chronic Qualified Code(s): I50.32 - Chronic diastolic (congestive ) heart failure (22) Carotid artery disease Code(s): I77.9 - DISORDER OF ARTERIES AND ARTERIOLES, UNSPECIFIED Qualifiers: Laterality: left Qualified Code(s): I77.9 - Disorder of arteries and arterioles, unspecified (23) Carotid occlusion, left Code(s): I65.22 - OCCLUSION AND STENOSIS OF LEFT CAROTID ARTERY (24) Chronic renal insufficiency Code(s): N18.9 - CHRONIC KIDNEY DISEASE, UNSPECIFIED (25) DVT prophylaxis Code(s): [id number] - (26) Dysthymia (or depressive neurosis) Code(s): F34.1 - DYSTHYMIC DISORDER (27) Epigastric abdominal pain Code(s): R10.13 - EPIGASTRIC PAIN (28) Fluid collection (edema) in the arms, legs, hands and feet Code(s): R60.0 - LOCALIZED EDEMA (29) Gout Code(s): M10.9 - GOUT, UNSPECIFIED Qualifiers: Gout etiology: unspecified cause Presence of tophus: without tophus (30) Hyperlipidemia Code(s): E78.5 - HYPERLIPIDEMIA, UNSPECIFIED Qualifiers: Hyperlipidemia type: unspecified (31) Hypertensive heart and chronic kidney disease with heart failure and stage 1 through stage 4 chronic kidney disease, or chronic kidney disease Code(s): I13.0 - HYP HRT & CHR KDNY DIS W HRT FAIL AND STG 1-4/UNSP CHR KDNY; I50.9 - HEART FAILURE, UNSPECIFIED; N18.9 - CHRONIC KIDNEY DISEASE, UNSPECIFIED (32) 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 Code(s): I13.10 - HYP HRT & CHR KDNY DIS W/O HRT FAIL, W STG 1-4/UNSP CHR KDNY (33) Hyperuricemia Code(s): E79.0 - HYPERURICEMIA W/O SIGNS OF INFLAM ARTHRIT AND TOPHACEOUS DIS (34) Hypothyroid Code(s): E03.9 - HYPOTHYROIDISM, UNSPECIFIED Qualifiers: (35) ICD (implantable cardioverter-defibrillator) in place Code(s): Z95.810 - PRESENCE OF AUTOMATIC (IMPLANTABLE) CARDIAC DEFIBRILLATOR (36) Leg swelling Code(s): M79.89 - OTHER SPECIFIED SOFT TISSUE DISORDERS (37) Lipid disorder Code(s): E78.9 - DISORDER OF LIPOPROTEIN METABOLISM, UNSPECIFIED (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) Code(s): D47.2 - MONOCLONAL GAMMOPATHY (39) Nosebleed Code(s): R04.0 - EPISTAXIS (40) PAD (peripheral artery disease) Code(s): I73.9 - PERIPHERAL VASCULAR DISEASE, UNSPECIFIED (41) Pneumonia Code(s): J18.9 - PNEUMONIA, UNSPECIFIED ORGANISM Qualifiers: (42) Presence of combination internal cardiac defibrillator (ICD) and pacemaker Code(s): Z95.810 - PRESENCE OF AUTOMATIC (IMPLANTABLE) CARDIAC DEFIBRILLATOR (43) Proteinuria Code(s): R80.9 - PROTEINURIA, UNSPECIFIED Qualifiers: Proteinuria type: persistent Qualified Code(s): R80.1 - Persistent proteinuria, unspecified (44) Renal insufficiency Code(s): N28.9 - DISORDER OF KIDNEY AND URETER, UNSPECIFIED (45) Status cardiac pacemaker Code(s): Z95.0 - PRESENCE OF CARDIAC PACEMAKER (46) Status post mitral valve annuloplasty Code(s): Z98.89 - OTHER SPECIFIED POSTPROCEDURAL STATES * DO NOT USE * (47) Thrombophlebitis Code(s): I80.9 - PHLEBITIS AND THROMBOPHLEBITIS OF UNSPECIFIED SITE (48) Transaminitis Code(s): R74.0 - NONSPEC ELEV OF LEVELS OF TRANSAMNS & LACTIC ACID DEHYDRGNSE Assessment/Plan fever sob decompensated chf systolic elevted tnis s/p bio AVR and MV repair as per HPI [employer] AICD BIvi-pacing 2015 Dr. 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 2014 Plan; abx IV lasix telemetry serial cardiac enzymes
[2017-09-12] MEDS ORDERED: ACETAMINOPHEN 325 MG TABLET (FP) PO PRN (17:30)
--- NOTE | 2017-09-12 17:42 | PN ---
Progress Note (short form) - Note Progress Note: @@@@@@@@@@@@@@@@@ medical Current Medications Acetaminophen (Tylenol -) 650 mg PO Q6H PRN PRN Reason: PAIN Albuterol Sulfate (Ventolin 0.042trength) -) 1 amp NEB Q6H PRN PRN Reason: SHORT OF BREATH/WHEEZING Last Admin: 09/12/17 10:10 Dose: 1 amp Allopurinol (Zyloprim -) 300 mg PO DAILY [facility] Last Admin: 09/12/17 10:10 Dose: 300 mg Aspirin (Ecotrin -) 81 mg PO DAILY [facility] Last Admin: 09/12/17 10:10 Dose: 81 mg Clopidogrel Bisulfate (Plavix -) 75 mg PO DAILY [facility] Last Admin: 09/12/17 10:10 Dose: 75 mg Furosemide (Lasix Injection -) 40 mg IVPUSH BID@0600,1400 [facility] Last Admin: 09/12/17 14:59 Dose: 40 mg Levofloxacin (Levaquin 250 Mg Premixed Ivpb -) 250 mg in 50 mls @ 50 mls/hr IVPB DAILY [facility] Last Admin: 09/12/17 10:10 Dose: 50 mls/hr Levothyroxine Sodium (Synthroid -) 25 mcg PO DAILY@0700 [facility] Last Admin: 09/12/17 08:52 Dose: 25 mcg Magnesium Chloride (Slow-Mag -) 64 mg PO DAILY [facility] Paroxetine HCl (Paxil -) 10 mg PO DAILY [facility] Last Admin: 09/12/17 10:10 Dose: 10 mg Rosuvastatin Calcium (Crestor -) 10 mg PO HS [facility] Last Admin: 09/11/17 22:27 Dose: 10 mg Laboratory Results - last 24 hr 09/11/17 09/12/17 09/12/17 23:59 07:30 07:30 WBC 8.7 RBC 4.17 Hgb 12.9 Hct 40.1 MCV 96.3 H MCH 30.9 MCHC 32.1 RDW 15.8 Plt Count 130 L MPV 8.9 Sodium 141 Potassium 4.9 Chloride 109 H Carbon Dioxide 21 Anion Gap 11 BUN 28 H Creatinine 2.0 H Creat Clearance w eGFR 32.23 Random Glucose 86 Uric Acid 3.2 Calcium 8.6 Total Bilirubin 1.1 H D AST 29 D ALT 51 D Alkaline Phosphatase 72 Creatine Kinase 48 Troponin I 2.13 H* 1.86 H* Total Protein 6.5 Albumin 3.2 L TSH 0.91 D Vital Signs Temperature 98.7 F 09/12/17 10:10 Pulse Rate 74 09/12/17 10:10 Respiratory Rate 18 09/12/17 10:10 Blood Pressure 104/52 09/12/17 10:10 O2 Sat by Pulse Oximetry (%) 96 09/12/17 10:10 CC; feels malaise; achy `````````````````````` skin--NL color lungs--clear heart--RR abd--soft, NT ext--no edema neuro--anxious, alert; lucid; speech clear; not toxic looking; thoughts well organized; moves all Extrem freely without tremors or ataxia ```````````````````````````````````` Summ > elevated Troponins;--with Hx of cardiomyopathy; now trending down; amid acute systemic illness; cause not clear; will follow Trops > fever--now seems to have resolved; NL wbc; but still feels "ill"; FLU swab negative; cultured pending > low Mg--replenish > Hypertensive heart Dz--with CKD; had elevated BNP on admission (largely due to acute intercurrent illness and chronic renal insufficiency) CXR does not show signs of CHF; but might have a certain degree of dyastolic dysfunction which was aggravated by the acute episode he presented with.PLAN: follow chemistries > Hypothyroid--TSH WnL. ~~~~~~~~~~~~~~~~~~~~~ Dr Desai Problem List - Problems (1) Sepsis Code(s): A41.9 - SEPSIS, UNSPECIFIED ORGANISM Qualifiers: Sepsis type: sepsis due to unspecified organism Qualified Code(s): A41.9 - Sepsis, unspecified organism (2) Elevated troponin Code(s): R74.8 - ABNORMAL LEVELS OF OTHER SERUM ENZYMES (3) AICD (automatic cardioverter/defibrillator) present Code(s): Z95.810 - PRESENCE OF AUTOMATIC (IMPLANTABLE) CARDIAC DEFIBRILLATOR (4) Acute on chronic renal failure Code(s): N17.9 - ACUTE KIDNEY FAILURE, UNSPECIFIED; N18.9 - CHRONIC KIDNEY DISEASE, UNSPECIFIED Qualifiers: Acute renal failure type: unspecified Chronic kidney disease stage: stage 2 (mild) Qualified Code(s): N17.9 - Acute kidney failure, unspecified; N18.2 - Chronic kidney disease, stage 2 (mild); N18.2 - Chronic kidney disease, stage 2 (mild) (5) Angioneurotic edema Code(s): T78.3XXA - ANGIONEUROTIC EDEMA, INITIAL ENCOUNTER Qualifiers: Encounter type: sequela Qualified Code(s): T78.3XXS - Angioneurotic edema, sequela (6) MGUS (monoclonal gammopathy of unknown significance) Code(s): D47.2 - MONOCLONAL GAMMOPATHY (7) Carotid occlusion, left Code(s): I65.22 - OCCLUSION AND STENOSIS OF LEFT CAROTID ARTERY (8) Arteriosclerotic heart disease (ASHD) Code(s): I25.10 - ATHSCL HEART DISEASE OF [place] CORONARY ARTERY W/O ANG PCTRS (9) Dysthymia (or depressive neurosis) Code(s): F34.1 - DYSTHYMIC DISORDER (10) Proteinuria Code(s): R80.9 - PROTEINURIA, UNSPECIFIED Qualifiers: Proteinuria type: persistent Qualified Code(s): R80.1 - Persistent proteinuria, unspecified (11) Aortic valve replaced Code(s): Z95.2 - PRESENCE OF PROSTHETIC HEART VALVE (12) Gout Code(s): M10.9 - GOUT, UNSPECIFIED Qualifiers: Gout etiology: unspecified cause Presence of tophus: without tophus (13) Hypothyroid Code(s): E03.9 - HYPOTHYROIDISM, UNSPECIFIED Qualifiers: Hypothyroidism type: acquired Qualified Code(s): E03.9 - Hypothyroidism, unspecified (14) Hyperlipidemia Code(s): E78.5 - HYPERLIPIDEMIA, UNSPECIFIED Qualifiers: Hyperlipidemia type: unspecified
[2017-09-12] MEDS: ROSUVASTATIN CA 10 MG TABLET (FP) PO SCH (21:48)
[2017-09-13] MEDS: FUROSEMIDE 40 MG/4 ML INJECTABLE VIAL IVPUSH SCH (06:43)
[2017-09-13] MEDS: LEVOTHYROXINE NA 25 MCG TABLET (FP) PO SCH (06:43)
[2017-09-13 07:51] LABS: ANION GAP 11 (8-16); BLOOD UREA NITROGEN 36 mg/dL (7-18); CHLORIDE 104 mmol/L (98-107); CO2 24 mmol/L (21-32); CREATININE 2.2 mg/dL (0.7-1.3); MAGNESIUM 1.7 mg/dL (1.8-2.4); POTASSIUM 4.4 mmol/L (3.5-5.1); SODIUM 139 mmol/L (136-145)
[2017-09-13 08:17] LABS: GLUCOSE,RANDOM 84 mg/dL (74-106)
--- NOTE | 2017-09-13 10:19 | EKG ---
Test Reason : Blood Pressure : / mmHG Vent. Rate : 075 BPM Atrial Rate : 416 BPM P-R Int : 000 ms QRS Dur : 188 ms QT Int : 464 ms P-R-T Axes : 000 108 -74 degrees QTc Int : 518 ms AV dual-paced rhythm with prolonged AV conduction Biventricular pacemaker detected ABNORMAL ECG WHEN COMPARED WITH ECG OF 11-SEP-2017 08:29, NO SIGNIFICANT CHANGE WAS FOUND Confirmed by CASH OLVERA, COLBY ([id number]) on 09/13/2017 10:19:07 AM Referred By: Jean-Claude TIJERINA Confirmed By:COLBY CASTREJON MD
[2017-09-13] MEDS: PARoxetine HCL 10 MG TABLET (FP) PO SCH (10:36)
[2017-09-13] MEDS: LEVOFLOXACIN 250 MG IVPB 250 MG/50 ML MG IVPB SCH (10:37)
[2017-09-13] MEDS: ASPIRIN COATED 81 MG TABLET.EC PO SCH (10:37)
[2017-09-13] MEDS: CLOPIDOGREL BISULFATE 75 MG TABLET (FP) PO SCH (10:37)
[2017-09-13] MEDS: ALLOPURINOL 300 MG TABLET (FP) PO SCH (10:37)
[2017-09-13] MEDS ORDERED: PT OWN MED DRAWER 7, Y5N ONE (11:33)
[2017-09-13] MEDS: MAGNESIUM CL 64 MG TABLET.SA PO SCH (12:48)
[2017-09-13] MEDS ORDERED: MAGNESIUM SULF 50% (8.12 MEQ/2 ML-1 GM VIAL) IVPB ONE (12:49)
[2017-09-13] MEDS ORDERED: ONDANSETRON 4 MG TABLET PO PRN (12:51)
--- NOTE | 2017-09-13 13:27 | PN ---
Progress Note (short form) - Note Progress Note: ################## medical Current Medications Acetaminophen (Tylenol -) 650 mg PO Q6H PRN PRN Reason: PAIN Last Admin: 09/12/17 20:31 Dose: 650 mg Albuterol Sulfate (Ventolin 0.042trength) -) 1 amp NEB Q6H PRN PRN Reason: SHORT OF BREATH/WHEEZING Last Admin: 09/12/17 10:10 Dose: 1 amp Allopurinol (Zyloprim -) 300 mg PO DAILY [facility] Last Admin: 09/13/17 10:37 Dose: 300 mg Aspirin (Ecotrin -) 81 mg PO DAILY [facility] Last Admin: 09/13/17 10:37 Dose: 81 mg Clopidogrel Bisulfate (Plavix -) 75 mg PO DAILY [facility] Last Admin: 09/13/17 10:37 Dose: 75 mg Furosemide (Lasix Injection -) 40 mg IVPUSH DAILY [facility] Levofloxacin (Levaquin 250 Mg Premixed Ivpb -) 250 mg in 50 mls @ 50 mls/hr IVPB DAILY [facility] Last Admin: 09/13/17 10:37 Dose: 50 mls/hr Magnesium Sulfate/Dextrose (Magnesium 1gm/D5w -) 1 gm in 100 mls @ 100 mls/hr IVPB ONCE ONE Stop: 09/13/17 14:29 Levothyroxine Sodium (Synthroid -) 25 mcg PO DAILY@0700 [facility] Last Admin: 09/13/17 06:43 Dose: 25 mcg Magnesium Chloride (Slow-Mag -) 64 mg PO DAILY [facility] Last Admin: 09/13/17 12:48 Dose: 64 mg Ondansetron HCl (Zofran -) 4 mg PO Q8H PRN PRN Reason: NAUSEA Paroxetine HCl (Paxil -) 10 mg PO DAILY [facility] Last Admin: 09/13/17 10:36 Dose: 10 mg Rosuvastatin Calcium (Crestor -) 10 mg PO HS [facility] Last Admin: 09/12/17 21:48 Dose: 10 mg Laboratory Results - last 24 hr 09/13/17 05:20 Sodium 139 Potassium 4.4 Chloride 104 Carbon Dioxide 24 Anion Gap 11 BUN 36 H D Creatinine 2.2 H Random Glucose 84 Calcium 9.0 Magnesium 1.7 L Creatine Kinase 48 Troponin I 1.06 H* D Vital Signs Temperature 98.3 F 09/13/17 10:00 Pulse Rate 74 09/13/17 10:00 Respiratory Rate 18 09/13/17 10:00 Blood Pressure 95/46 09/13/17 10:00 O2 Sat by Pulse Oximetry (%) 98 09/13/17 09:00 CC: some nausea after taking his usual meds this AM ````````````````````````````````` skin--no acute lesions; IV site clean lungs--clear heart--RR abd--benign ext--no edema neuro--fully alert & coherent; no gross deficits ````````````````````````````````````````` Summ > elevated Troponins;--with Hx of cardiomyopathy; significance unclear; now trending down; amid acute systemic illness; will follow Trops > fever--resolved; NL wbc; but still feels "ill"; FLU swab negative; cultures pending > low Mg--replenish; IV & PO > Hypertensive heart Dz--with CKD; had elevated BNP on admission (largely due to acute intercurrent illness and chronic renal insufficiency) CXR does not show signs of CHF; but might have a certain degree of dyastolic dysfunction which was aggravated by the acute episode he presented with.PLAN: follow chemistries > Hypothyroid--TSH WnL. ~~~~~~~~~~~~~~~~~~~~~ Dr Desai Problem List - Problems (1) Sepsis Code(s): A41.9 - SEPSIS, UNSPECIFIED ORGANISM Qualifiers: Sepsis type: sepsis due to unspecified organism Qualified Code(s): A41.9 - Sepsis, unspecified organism (2) Elevated troponin Code(s): R74.8 - ABNORMAL LEVELS OF OTHER SERUM ENZYMES (3) AICD (automatic cardioverter/defibrillator) present Code(s): Z95.810 - PRESENCE OF AUTOMATIC (IMPLANTABLE) CARDIAC DEFIBRILLATOR (4) Acute on chronic renal failure Code(s): N17.9 - ACUTE KIDNEY FAILURE, UNSPECIFIED; N18.9 - CHRONIC KIDNEY DISEASE, UNSPECIFIED Qualifiers: Acute renal failure type: unspecified Chronic kidney disease stage: stage 2 (mild) Qualified Code(s): N17.9 - Acute kidney failure, unspecified; N18.2 - Chronic kidney disease, stage 2 (mild); N18.2 - Chronic kidney disease, stage 2 (mild) (5) Angioneurotic edema Code(s): T78.3XXA - ANGIONEUROTIC EDEMA, INITIAL ENCOUNTER Qualifiers: Encounter type: sequela Qualified Code(s): T78.3XXS - Angioneurotic edema, sequela (6) MGUS (monoclonal gammopathy of unknown significance) Code(s): D47.2 - MONOCLONAL GAMMOPATHY (7) Carotid occlusion, left Code(s): I65.22 - OCCLUSION AND STENOSIS OF LEFT CAROTID ARTERY (8) Arteriosclerotic heart disease (ASHD) Code(s): I25.10 - ATHSCL HEART DISEASE OF [place] CORONARY ARTERY W/O ANG PCTRS (9) Dysthymia (or depressive neurosis) Code(s): F34.1 - DYSTHYMIC DISORDER (10) Proteinuria Code(s): R80.9 - PROTEINURIA, UNSPECIFIED Qualifiers: Proteinuria type: persistent Qualified Code(s): R80.1 - Persistent proteinuria, unspecified (11) Aortic valve replaced Code(s): Z95.2 - PRESENCE OF PROSTHETIC HEART VALVE (12) Gout Code(s): M10.9 - GOUT, UNSPECIFIED Qualifiers: Gout etiology: unspecified cause Presence of tophus: without tophus (13) Hypothyroid Code(s): E03.9 - HYPOTHYROIDISM, UNSPECIFIED Qualifiers: Hypothyroidism type: acquired Qualified Code(s): E03.9 - Hypothyroidism, unspecified (14) Hyperlipidemia Code(s): E78.5 - HYPERLIPIDEMIA, UNSPECIFIED Qualifiers: Hyperlipidemia type: unspecified
[2017-09-13] MEDS ORDERED: MAGNESIUM 1GM/D5W - 1 GM/100 ML IVPB IVPB ONE (13:30)
--- NOTE | 2017-09-13 16:33 | PN ---
Progress Note, Physician Chief Complaint: Pt OOB in je; A&Ox3; no chest pain or dyspnea; no abdominal pain; +cough. History of Present Illness: The patient is an 82 year old white male brought via EMS, with a significant past medical history of, who presents to the emergency department with cold like symptoms for the last 2 weeks. He reports that he has been having a fever during this time, which today was as high as 100.8 degrees F. He also reports dizziness, cough and chest pain when he coughs. He notes that his cough is productive of a white phlegm. He reports that he did experience nausea today and has noticed that his stool have been softer than usual. He states that he saw his PMD yesterday who told him he had a cold but that everything else was fine. He notes that he is currently experiencing shortness of breath because he became emotional as he came to the ED. The patient denies headache, chills, vomit, diarrhea and constipation. Denies dysuria, frequency, urgency and hematuria. Allergies: sertraline, lisinopril, penicillins, Pravachol, Zocor Past surgical history: Hernia repair, Aortic/Mitral valve replacement; CABG; AICD, left knee arthroscopic surgery. Social history: No alcohol, tobacco or drug use reported PMD: Dr. Hector Desai Data Security Coordinator: Dr. Hawkins - Current Medication List Current Medications: Active Medications Acetaminophen (Tylenol -) 650 mg PO Q6H PRN PRN Reason: PAIN Last Admin: 09/12/17 20:31 Dose: 650 mg Albuterol Sulfate (Ventolin 0.042trength) -) 1 amp NEB Q6H PRN PRN Reason: SHORT OF BREATH/WHEEZING Last Admin: 09/12/17 10:10 Dose: 1 amp Allopurinol (Zyloprim -) 300 mg PO DAILY [facility] Last Admin: 09/13/17 10:37 Dose: 300 mg Aspirin (Ecotrin -) 81 mg PO DAILY [facility] Last Admin: 09/13/17 10:37 Dose: 81 mg Clopidogrel Bisulfate (Plavix -) 75 mg PO DAILY [facility] Last Admin: 09/13/17 10:37 Dose: 75 mg Furosemide (Lasix Injection -) 40 mg IVPUSH DAILY [facility] Levofloxacin (Levaquin 250 Mg Premixed Ivpb -) 250 mg in 50 mls @ 50 mls/hr IVPB DAILY [facility] Last Admin: 09/13/17 10:37 Dose: 50 mls/hr Levothyroxine Sodium (Synthroid -) 25 mcg PO DAILY@0700 [facility] Last Admin: 09/13/17 06:43 Dose: 25 mcg Magnesium Chloride (Slow-Mag -) 64 mg PO DAILY [facility] Last Admin: 09/13/17 12:48 Dose: 64 mg Ondansetron HCl (Zofran -) 4 mg PO Q8H PRN PRN Reason: NAUSEA Paroxetine HCl (Paxil -) 10 mg PO DAILY [facility] Last Admin: 09/13/17 10:36 Dose: 10 mg Rosuvastatin Calcium (Crestor -) 10 mg PO HS [facility] Last Admin: 09/12/17 21:48 Dose: 10 mg - Objective Vital Signs: Vital Signs Temperature 98.7 F 09/13/17 13:53 Pulse Rate 77 09/13/17 13:53 Respiratory Rate 18 09/13/17 13:53 Blood Pressure 100/59 09/13/17 13:53 O2 Sat by Pulse Oximetry (%) 98 09/13/17 09:00 Constitutional: Yes: No Distress Eyes: Yes: WNL HENT: Yes: WNL Neck: Yes: WNL Cardiovascular: Yes: Murmur (2/6 systolic murmur, LSB-->axilla), S1 (split), S2 Respiratory: Yes: Regular Gastrointestinal: Yes: Soft ...Rectal Exam: Yes: Deferred Genitourinary: Yes: Anuria Musculoskeletal: Yes: Muscle Weakness Extremities: Yes: Cool Edema: Yes Edema: LLE: Trace, RLE: Trace Peripheral Pulses WNL: Yes Neurological: Yes: Alert, Oriented, Weakness Psychiatric: Yes: Other (anxiety) Labs: CBC, BMP 09/12/17 07:30 09/13/17 05:20 INR, PTT INR 1.13 (0.82-1.09) 09/11/17 07:59 Abnormal Lab Results 09/13/17 05:20 BUN 36 H D Creatinine 2.2 H Magnesium 1.7 L Troponin I 1.06 H* D - ....Imaging EKG: Image Reviewed (AV dual pacing; BiV pacing) Problem List - Problems (1) Arteriosclerotic heart disease (ASHD) Code(s): I25.10 - ATHSCL HEART DISEASE OF [place] CORONARY ARTERY W/O ANG PCTRS (2) Dyspnea Code(s): R06.00 - DYSPNEA, UNSPECIFIED (3) Elevated troponin Assessment/Plan: decreasig TNI; normal CK. Code(s): R74.8 - ABNORMAL LEVELS OF OTHER SERUM ENZYMES (4) Fever Code(s): R50.9 - FEVER, UNSPECIFIED (5) Hypothyroid Assessment/Plan: TSH wnl. On Synthroid. Code(s): E03.9 - HYPOTHYROIDISM, UNSPECIFIED Qualifiers: Hypothyroidism type: acquired Qualified Code(s): E03.9 - Hypothyroidism, unspecified (6) Sepsis Code(s): A41.9 - SEPSIS, UNSPECIFIED ORGANISM Qualifiers: Sepsis type: sepsis due to unspecified organism Qualified Code(s): A41.9 - Sepsis, unspecified organism (7) AICD (automatic cardioverter/defibrillator) present Code(s): Z95.810 - PRESENCE OF AUTOMATIC (IMPLANTABLE) CARDIAC DEFIBRILLATOR (8) Acute on chronic systolic (congestive) heart failure Assessment/Plan: Ideally, pt should be on beta elfego, ACEI, and spironolactone once hemodynamically stable. On furosemide; f/u Is and Os, daily weight, BUN/Cr, electrolytes. Code(s): I50.23 - ACUTE ON CHRONIC SYSTOLIC (CONGESTIVE) HEART FAILURE (9) Hyperlipidemia Assessment/Plan: f/u lipid profile; keep LDL < 70 mg/dL. Code(s): E78.5 - HYPERLIPIDEMIA, UNSPECIFIED Qualifiers: Hyperlipidemia type: unspecified Qualified Code(s): E78.5 - Hyperlipidemia , unspecified (10) Hypomagnesemia Assessment/Plan: replete; keep 2-2.3 Keep K+ 4-4.5 Keep PO4 2.5-3.5 Code(s): E83.42 - HYPOMAGNESEMIA
[2017-09-13 19:16] LABS: CHOLESTEROL 134 mg/dL (50-200); HDL CHOLESTEROL 41 mg/dL (40-60); LDL CHOLESTEROL (ONLY SJRH) 84 mg/dL (5-100); TRIGLYCERIDES 86 mg/dL (35-160)
[2017-09-13] MEDS: ROSUVASTATIN CA 10 MG TABLET (FP) PO SCH (21:49)
[2017-09-14] MEDS: LEVOTHYROXINE NA 25 MCG TABLET (FP) PO SCH (06:50)
[2017-09-14 07:40] LABS: ANION GAP 9 (8-16); BLOOD UREA NITROGEN 46 mg/dL (7-18); CALCIUM 9.1 mg/dL (8.5-10.1); CHLORIDE 104 mmol/L (98-107); CO2 26 mmol/L (21-32); CREATININE 2.3 mg/dL (0.7-1.3); GLUCOSE,RANDOM 91 mg/dL (74-106); MAGNESIUM 2.1 mg/dL (1.8-2.4); POTASSIUM 4.2 mmol/L (3.5-5.1); SODIUM 139 mmol/L (136-145)
[2017-09-14] MEDS ORDERED: FUROSEMIDE 40 MG/4 ML INJECTABLE VIAL IVPUSH SCH (10:00)
[2017-09-14] MEDS ORDERED: PT OWN MED DRAWER 7, Y5N ONE (10:09)
[2017-09-14] MEDS: ALLOPURINOL 300 MG TABLET (FP) PO SCH (10:31)
[2017-09-14] MEDS: CLOPIDOGREL BISULFATE 75 MG TABLET (FP) PO SCH (10:31)
[2017-09-14] MEDS: MAGNESIUM CL 64 MG TABLET.SA PO SCH (10:31)
[2017-09-14] MEDS: ASPIRIN COATED 81 MG TABLET.EC PO SCH (10:31)
[2017-09-14] MEDS: PARoxetine HCL 10 MG TABLET (FP) PO SCH (10:32)
[2017-09-14] MEDS: LEVOFLOXACIN 250 MG IVPB 250 MG/50 ML MG IVPB SCH (10:40)
--- NOTE | 2017-09-14 11:42 | PN ---
Progress Note, Physician History of Present Illness: The patient is a 82 year old male brought via EMS, with a significant past medical history of, who presents to the emergency department with cold like symptoms for the last 2 weeks. He reports that he has been having a fever during this time, which today was as high as 100.8 degrees F. He also reports dizziness, cough and chest pain when he coughs. He notes that his cough is productive of a white phlegm. He reports that he did experience nausea today and has noticed that his stool have been softer than usual. He states that he saw his PMD yesterday who told him he had a cold but that everything else was fine. He notes that he is currently experiencing shortness of breath because he became emotional as he came to the ED. The patient denies headache, chills, vomit, diarrhea and constipation. Denies dysuria, frequency, urgency and hematuria. Allergies: sertraline, lisinopril, penicillins, Pravachol, Zocor Past surgical history: Hernia repair, Aortic/Mitral valve replacement; CABG; AICD, left knee arthroscopic surgery. Social history: No alcohol, tobacco or drug use reported PMD: Dr. Hector Desai Avionics Systems Technician: Dr. Hawkins PMH s/p bio AVR and MV repair as per HPI Ongoing medical problems [employer] AICD BIvi-pacing 2015 Dr. 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 2014 - Current Medication List Current Medications: Active Medications Acetaminophen (Tylenol -) 650 mg PO Q6H PRN PRN Reason: PAIN Last Admin: 09/12/17 20:31 Dose: 650 mg Albuterol Sulfate (Ventolin 0.042trength) -) 1 amp NEB Q6H PRN PRN Reason: SHORT OF BREATH/WHEEZING Last Admin: 09/12/17 10:10 Dose: 1 amp Allopurinol (Zyloprim -) 300 mg PO DAILY [facility] Last Admin: 09/14/17 10:31 Dose: 300 mg Aspirin (Ecotrin -) 81 mg PO DAILY [facility] Last Admin: 09/14/17 10:31 Dose: 81 mg Clopidogrel Bisulfate (Plavix -) 75 mg PO DAILY [facility] Last Admin: 09/14/17 10:31 Dose: 75 mg Furosemide (Lasix Injection -) 40 mg IVPUSH DAILY [facility] Last Admin: 09/14/17 10:31 Dose: 40 mg Levofloxacin (Levaquin 250 Mg Premixed Ivpb -) 250 mg in 50 mls @ 50 mls/hr IVPB DAILY [facility] Last Admin: 09/14/17 10:40 Dose: 50 mls/hr Levothyroxine Sodium (Synthroid -) 25 mcg PO DAILY@0700 [facility] Last Admin: 09/14/17 06:50 Dose: 25 mcg Magnesium Chloride (Slow-Mag -) 64 mg PO DAILY [facility] Last Admin: 09/14/17 10:31 Dose: 64 mg Ondansetron HCl (Zofran -) 4 mg PO Q8H PRN PRN Reason: NAUSEA Paroxetine HCl (Paxil -) 10 mg PO DAILY [facility] Last Admin: 09/14/17 10:32 Dose: 10 mg Rosuvastatin Calcium (Crestor -) 10 mg PO HS [facility] Last Admin: 09/13/17 21:49 Dose: 10 mg - Objective Vital Signs: Vital Signs Temperature 98.3 F 09/14/17 09:00 Pulse Rate 75 09/14/17 09:00 Respiratory Rate 18 09/14/17 09:00 Blood Pressure 128/55 09/14/17 09:00 O2 Sat by Pulse Oximetry (%) 99 09/14/17 09:00 Eyes: Yes: WNL, Conjunctiva Clear, EOM Intact HENT: Yes: WNL, Atraumatic, Normocephalic Neck: Yes: WNL, Supple, Trachea Midline Cardiovascular: Yes: WNL, Regular Rate and Rhythm Respiratory: Yes: WNL, Regular, CTA Bilaterally Gastrointestinal: Yes: WNL, Normal Bowel Sounds Genitourinary: Yes: WNL Musculoskeletal: Yes: WNL Extremities: Yes: WNL Edema: No Integumentary: Yes: WNL Neurological: Yes: WNL, Alert, Oriented ...Motor Strength: WNL Psychiatric: Yes: WNL Labs: CBC, BMP 09/12/17 07:30 09/14/17 06:25 INR, PTT INR 1.13 (0.82-1.09) 09/11/17 07:59 Problem List - Problems (1) Arteriosclerotic heart disease (ASHD) Code(s): I25.10 - ATHSCL HEART DISEASE OF [place] CORONARY ARTERY W/O ANG PCTRS (2) Dyspnea Code(s): R06.00 - DYSPNEA, UNSPECIFIED (3) Elevated troponin Code(s): R74.8 - ABNORMAL LEVELS OF OTHER SERUM ENZYMES (4) Fever Code(s): R50.9 - FEVER, UNSPECIFIED (5) Hypothyroid Code(s): E03.9 - HYPOTHYROIDISM, UNSPECIFIED Qualifiers: Hypothyroidism type: acquired Qualified Code(s): E03.9 - Hypothyroidism, unspecified (6) Sepsis Code(s): A41.9 - SEPSIS, UNSPECIFIED ORGANISM Qualifiers: Sepsis type: sepsis due to unspecified organism Qualified Code(s): A41.9 - Sepsis, unspecified organism (7) AICD (automatic cardioverter/defibrillator) present Code(s): Z95.810 - PRESENCE OF AUTOMATIC (IMPLANTABLE) CARDIAC DEFIBRILLATOR (8) Acute exacerbation of CHF (congestive heart failure) Code(s): I50.9 - HEART FAILURE, UNSPECIFIED (9) Acute exacerbation of congestive heart failure Code(s): I50.9 - HEART FAILURE, UNSPECIFIED Qualifiers: (10) Acute on chronic combined systolic and diastolic CHF, NYHA class 3 Code(s): I50.43 - ACUTE ON CHRONIC COMBINED SYSTOLIC AND DIASTOLIC HRT FAIL (11) Acute on chronic renal failure Code(s): N17.9 - ACUTE KIDNEY FAILURE, UNSPECIFIED; N18.9 - CHRONIC KIDNEY DISEASE, UNSPECIFIED Qualifiers: Acute renal failure type: unspecified Chronic kidney disease stage: stage 2 (mild) Qualified Code(s): N17.9 - Acute kidney failure, unspecified; N18.2 - Chronic kidney disease, stage 2 (mild); N18.2 - Chronic kidney disease, stage 2 (mild) (12) Acute on chronic systolic and diastolic heart failure, NYHA class 1 Code(s): I50.43 - ACUTE ON CHRONIC COMBINED SYSTOLIC AND DIASTOLIC HRT FAIL (13) Angioneurotic edema Code(s): T78.3XXA - ANGIONEUROTIC EDEMA, INITIAL ENCOUNTER Qualifiers: Encounter type: sequela Qualified Code(s): T78.3XXS - Angioneurotic edema, sequela (14) Anxiety and depression Code(s): F41.9 - ANXIETY DISORDER, UNSPECIFIED; F32.9 - MAJOR DEPRESSIVE DISORDER, SINGLE EPISODE, UNSPECIFIED (15) Aortic stenosis Code(s): I35.0 - NONRHEUMATIC AORTIC (VALVE) STENOSIS (16) Aortic valve replaced Code(s): Z95.2 - PRESENCE OF PROSTHETIC HEART VALVE (17) Arm swelling Code(s): M79.89 - OTHER SPECIFIED SOFT TISSUE DISORDERS (18) Artificial cardiac pacemaker Code(s): Z95.0 - PRESENCE OF CARDIAC PACEMAKER (19) Aspirin long-term use Code(s): Z79.82 - SUBASSEMBLY SUPERVISOR (CURRENT) USE OF ASPIRIN (20) CAD (coronary artery disease) Code(s): I25.10 - ATHSCL HEART DISEASE OF [place] CORONARY ARTERY W/O ANG PCTRS (21) CHF (congestive heart failure) Code(s): I50.9 - HEART FAILURE, UNSPECIFIED Qualifiers: Congestive heart failure type: diastolic Congestive heart failure chronicity: chronic Qualified Code(s): I50.32 - Chronic diastolic (congestive ) heart failure (22) Carotid artery disease Code(s): I77.9 - DISORDER OF ARTERIES AND ARTERIOLES, UNSPECIFIED Qualifiers: Laterality: left Qualified Code(s): I77.9 - Disorder of arteries and arterioles, unspecified (23) Carotid occlusion, left Code(s): I65.22 - OCCLUSION AND STENOSIS OF LEFT CAROTID ARTERY (24) Chronic renal insufficiency Code(s): N18.9 - CHRONIC KIDNEY DISEASE, UNSPECIFIED (25) DVT prophylaxis Code(s): [id number] - (26) Dysthymia (or depressive neurosis) Code(s): F34.1 - DYSTHYMIC DISORDER (27) Epigastric abdominal pain Code(s): R10.13 - EPIGASTRIC PAIN (28) Fluid collection (edema) in the arms, legs, hands and feet Code(s): R60.0 - LOCALIZED EDEMA (29) Gout Code(s): M10.9 - GOUT, UNSPECIFIED Qualifiers: Gout etiology: unspecified cause Presence of tophus: without tophus (30) Hyperlipidemia Code(s): E78.5 - HYPERLIPIDEMIA, UNSPECIFIED Qualifiers: Hyperlipidemia type: unspecified Qualified Code(s): E78.5 - Hyperlipidemia , unspecified (31) Hypertensive heart and chronic kidney disease with heart failure and stage 1 through stage 4 chronic kidney disease, or chronic kidney disease Code(s): I13.0 - HYP HRT & CHR KDNY DIS W HRT FAIL AND STG 1-4/UNSP CHR KDNY; I50.9 - HEART FAILURE, UNSPECIFIED; N18.9 - CHRONIC KIDNEY DISEASE, UNSPECIFIED (32) 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 Code(s): I13.10 - HYP HRT & CHR KDNY DIS W/O HRT FAIL, W STG 1-4/UNSP CHR KDNY (33) Hyperuricemia Code(s): E79.0 - HYPERURICEMIA W/O SIGNS OF INFLAM ARTHRIT AND TOPHACEOUS DIS (34) Hypothyroid Code(s): E03.9 - HYPOTHYROIDISM, UNSPECIFIED Qualifiers: (35) ICD (implantable cardioverter-defibrillator) in place Code(s): Z95.810 - PRESENCE OF AUTOMATIC (IMPLANTABLE) CARDIAC DEFIBRILLATOR (36) Leg swelling Code(s): M79.89 - OTHER SPECIFIED SOFT TISSUE DISORDERS (37) Lipid disorder Code(s): E78.9 - DISORDER OF LIPOPROTEIN METABOLISM, UNSPECIFIED (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) Code(s): D47.2 - MONOCLONAL GAMMOPATHY (39) Nosebleed Code(s): R04.0 - EPISTAXIS (40) PAD (peripheral artery disease) Code(s): I73.9 - PERIPHERAL VASCULAR DISEASE, UNSPECIFIED (41) Pneumonia Code(s): J18.9 - PNEUMONIA, UNSPECIFIED ORGANISM Qualifiers: (42) Presence of combination internal cardiac defibrillator (ICD) and pacemaker Code(s): Z95.810 - PRESENCE OF AUTOMATIC (IMPLANTABLE) CARDIAC DEFIBRILLATOR (43) Proteinuria Code(s): R80.9 - PROTEINURIA, UNSPECIFIED Qualifiers: Proteinuria type: persistent Qualified Code(s): R80.1 - Persistent proteinuria, unspecified (44) Renal insufficiency Code(s): N28.9 - DISORDER OF KIDNEY AND URETER, UNSPECIFIED (45) Status cardiac pacemaker Code(s): Z95.0 - PRESENCE OF CARDIAC PACEMAKER (46) Status post mitral valve annuloplasty Code(s): Z98.89 - OTHER SPECIFIED POSTPROCEDURAL STATES * DO NOT USE * (47) Thrombophlebitis Code(s): I80.9 - PHLEBITIS AND THROMBOPHLEBITIS OF UNSPECIFIED SITE (48) Transaminitis Code(s): R74.0 - NONSPEC ELEV OF LEVELS OF TRANSAMNS & LACTIC ACID DEHYDRGNSE Assessment/Plan - Problems (1) Arteriosclerotic heart disease (ASHD) Code(s): I25.10 - ATHSCL HEART DISEASE OF [place] CORONARY ARTERY W/O ANG PCTRS (2) Dyspnea Code(s): R06.00 - DYSPNEA, UNSPECIFIED (3) Elevated troponin Assessment/Plan: decreasig TNI; normal CK. Code(s): R74.8 - ABNORMAL LEVELS OF OTHER SERUM ENZYMES (4) Fever Code(s): R50.9 - FEVER, UNSPECIFIED (5) Hypothyroid Assessment/Plan: TSH wnl. On Synthroid. Code(s): E03.9 - HYPOTHYROIDISM, UNSPECIFIED Qualifiers: Hypothyroidism type: acquired Qualified Code(s): E03.9 - Hypothyroidism, unspecified (6) Sepsis Code(s): A41.9 - SEPSIS, UNSPECIFIED ORGANISM Qualifiers: Sepsis type: sepsis due to unspecified organism Qualified Code(s): A41.9 - Sepsis, unspecified organism (7) AICD (automatic cardioverter/defibrillator) present Code(s): Z95.810 - PRESENCE OF AUTOMATIC (IMPLANTABLE) CARDIAC DEFIBRILLATOR (8) Acute on chronic systolic (congestive) heart failure Assessment/Plan: Ideally, pt should be on beta elfego, ACEI, and spironolactone once hemodynamically stable. On furosemide; f/u Is and Os, daily weight, BUN/Cr, electrolytes. will change lasix to po Code(s): I50.23 - ACUTE ON CHRONIC SYSTOLIC (CONGESTIVE) HEART FAILURE (9) Hyperlipidemia Assessment/Plan: f/u lipid profile; keep LDL < 70 mg/dL. Code(s): E78.5 - HYPERLIPIDEMIA, UNSPECIFIED Qualifiers: Hyperlipidemia type: unspecified Qualified Code(s): E78.5 - Hyperlipidemia , unspecified (10) Hypomagnesemia Assessment/Plan: replete; keep 2-2.3 Keep K+ 4-4.5 Keep PO4 2.5-3.5 Code(s): E83.42 - HYPOMAGNESEMIA
--- NOTE | 2017-09-14 17:12 | DS ---
Physical Examination Vital Signs: Vital Signs Temperature 98 F 09/14/17 14:45 Pulse Rate 79 09/14/17 14:45 Respiratory Rate 18 09/14/17 14:45 Blood Pressure 87/47 09/14/17 14:45 O2 Sat by Pulse Oximetry (%) 99 09/14/17 09:00 Constitutional: Yes: No Distress, Calm Eyes: Yes: Conjunctiva Clear Cardiovascular: Yes: Regular Rate and Rhythm Respiratory: Yes: CTA Bilaterally Gastrointestinal: Yes: Normal Bowel Sounds, Soft Edema: No Integumentary: Yes: WNL Neurological: Yes: WNL ...Motor Strength: WNL Psychiatric: Yes: WNL Labs: CBC, BMP 09/12/17 07:30 09/14/17 06:25 Discharge Summary Reason For Visit: DYSPNEA,ELEVATED TROPONIN LEVEL Current Active Problems Diastolic heart failure acute on chronic Arteriosclerotic heart disease (ASHD) Dyspnea (Acute) Elevated troponin (Acute) Fever (Acute) Hypomagnesemia (Acute) Hypothyroid (Acute) Sepsis (Acute) hypotension hyperuricemia carotid stenosis pacer-defib status Hospital Course: 82 YOM with ischemic cardiomyopathy who admitted from home due to sudden onset of acute malaise, fever; SOB; myalgia. On arrival to ER he was febrile, and cultured and started on IV Abs. He did not have an elevated WBC and the UA was benign but he had elevated BNP &( Tropinin level above 3.o); the EKG showed a paced rhythm; influenza swab was negative; CXR was clear; he defervesced the following day, and improved slowly over all; as he his Tropins rended down each day. Cultures were negative. He was seen by Cardiology who felt he did not have an VT outright, or ACS; but rather some ischemia related to his acute febrile state and renal insufficiency. He was put back on his usual cardiac meds; and regained much of his stamina with each day Condition: Stable - Instructions Diet, Activity, Other Instructions: low salt diet no work x 1 week; rest Referrals: Hector Desai MD [Primary Care Provider] - Disposition: HOME - Home Medications Comprehensive Discharge Medication List: Ambulatory Orders Allopurinol [Zyloprim -] 300 mg PO DAILY 12/19/15 Aspirin [ASA -] 81 mg PO DAILY 12/19/15 Clopidogrel Bisulfate [Plavix -] 75 mg PO DAILY 12/19/15 Levothyroxine [Synthroid -] 25 mcg PO DAILY 12/19/15 Paroxetine HCl [Paxil -] 10 mg PO DAILY 12/19/15 Rosuvastatin [Crestor -] 20 mg PO HS 12/19/15 Carvedilol [Coreg -] 3.125 mg PO HS #30 tablet 03/12/16 Spironolactone [Aldactone -] 25 mg PO DAILY #30 tablet 03/12/16 Furosemide [Lasix -] 40 mg PO DAILY 06/30/16 Colesevelam HCl [Welchol (Nf)] 625 mg PO DAILY 06/13/17 levofloxin 250mg Daily for 3 days Quality Measures-Exclusions - Acute VT Reason RADHA/ARB not ordered at discharge: Adverse reaction to RADHA (angioedema)
[2017-09-14] MEDS: ROSUVASTATIN CA 10 MG TABLET (FP) PO SCH (21:52)
[2017-09-15 06:08] VITALS: TEMP 98.2
[2017-09-15] MEDS: LEVOTHYROXINE NA 25 MCG TABLET (FP) PO SCH (06:25)
[2017-09-15 08:13] VITALS: BP 93/61; PULSE 75
[2017-09-15] MEDS: CLOPIDOGREL BISULFATE 75 MG TABLET (FP) PO SCH (09:01)
[2017-09-15] MEDS: ALLOPURINOL 300 MG TABLET (FP) PO SCH (09:01)
[2017-09-15] MEDS: ASPIRIN COATED 81 MG TABLET.EC PO SCH (09:01)
[2017-09-15] MEDS ORDERED: PT OWN MED DRAWER 7, Y5N ONE (09:04)
[2017-09-15] MEDS: MAGNESIUM CL 64 MG TABLET.SA PO SCH (09:05)
[2017-09-15] MEDS: PARoxetine HCL 10 MG TABLET (FP) PO SCH (09:05)
[2017-09-15] MEDS ORDERED: LEVOFLOXACIN 250 MG TABLET (FP) PO SCH (10:00)
[2017-09-15] MEDS ORDERED: FUROSEMIDE 40 MG TABLET (FP) PO SCH (10:00)
--- NOTE | 2017-09-15 10:11 | PN ---
Progress Note, Physician Chief Complaint: Pt A&Ox3; cough has improved; still with slight nasal congestion. History of Present Illness: The patient is an 82 year old white male brought via EMS, with a significant past medical history of, who presents to the emergency department with cold like symptoms for the last 2 weeks. He reports that he has been having a fever during this time, which today was as high as 100.8 degrees F. He also reports dizziness, cough and chest pain when he coughs. He notes that his cough is productive of a white phlegm. He reports that he did experience nausea today and has noticed that his stool have been softer than usual. He states that he saw his PMD yesterday who told him he had a cold but that everything else was fine. He notes that he is currently experiencing shortness of breath because he became emotional as he came to the ED. The patient denies headache, chills, vomit, diarrhea and constipation. Denies dysuria, frequency, urgency and hematuria. Allergies: sertraline, lisinopril, penicillins, Pravachol, Zocor Past surgical history: Hernia repair, Aortic/Mitral valve replacement; CABG; AICD, left knee arthroscopic surgery. Social history: No alcohol, tobacco or drug use reported PMD: Dr. Hector Desai Standards Engineer: Dr. Hawkins - Current Medication List Current Medications: Active Medications Acetaminophen (Tylenol -) 650 mg PO Q6H PRN PRN Reason: PAIN Last Admin: 09/12/17 20:31 Dose: 650 mg Allopurinol (Zyloprim -) 300 mg PO DAILY [facility] Last Admin: 09/15/17 09:01 Dose: 300 mg Aspirin (Ecotrin -) 81 mg PO DAILY [facility] Last Admin: 09/15/17 09:01 Dose: 81 mg Clopidogrel Bisulfate (Plavix -) 75 mg PO DAILY [facility] Last Admin: 09/15/17 09:01 Dose: 75 mg Furosemide (Lasix -) 40 mg PO DAILY [facility] Last Admin: 09/15/17 09:01 Dose: Not Given Levofloxacin (Levaquin -) 250 mg PO DAILY [facility] Last Admin: 09/15/17 09:01 Dose: 250 mg Levothyroxine Sodium (Synthroid -) 25 mcg PO DAILY@0700 [facility] Last Admin: 09/15/17 06:25 Dose: 25 mcg Magnesium Chloride (Slow-Mag -) 64 mg PO DAILY [facility] Last Admin: 09/15/17 09:05 Dose: 64 mg Paroxetine HCl (Paxil -) 10 mg PO DAILY [facility] Last Admin: 09/15/17 09:05 Dose: 10 mg Rosuvastatin Calcium (Crestor -) 10 mg PO HS [facility] Last Admin: 09/14/17 21:52 Dose: 10 mg - Objective Vital Signs: Vital Signs Temperature 98.2 F 09/15/17 08:11 Pulse Rate 75 09/15/17 08:11 Respiratory Rate 18 09/15/17 08:14 Blood Pressure 93/61 09/15/17 08:11 O2 Sat by Pulse Oximetry (%) 97 09/14/17 21:00 Constitutional: Yes: No Distress, Calm Eyes: Yes: WNL HENT: Yes: WNL Neck: Yes: WNL Labs: CBC, BMP 09/12/17 07:30 09/14/17 06:25 INR, PTT INR 1.13 (0.82-1.09) 09/11/17 07:59 Problem List - Problems (1) Arteriosclerotic heart disease (ASHD) Code(s): I25.10 - ATHSCL HEART DISEASE OF [place] CORONARY ARTERY W/O ANG PCTRS (2) Dyspnea Code(s): R06.00 - DYSPNEA, UNSPECIFIED (3) Elevated troponin Code(s): R74.8 - ABNORMAL LEVELS OF OTHER SERUM ENZYMES (4) Fever Code(s): R50.9 - FEVER, UNSPECIFIED (5) Hypothyroid Code(s): E03.9 - HYPOTHYROIDISM, UNSPECIFIED Qualifiers: Hypothyroidism type: acquired Qualified Code(s): E03.9 - Hypothyroidism, unspecified (6) Sepsis Code(s): A41.9 - SEPSIS, UNSPECIFIED ORGANISM Qualifiers: Sepsis type: sepsis due to unspecified organism Qualified Code(s): A41.9 - Sepsis, unspecified organism (7) AICD (automatic cardioverter/defibrillator) present Code(s): Z95.810 - PRESENCE OF AUTOMATIC (IMPLANTABLE) CARDIAC DEFIBRILLATOR (8) Acute on chronic systolic (congestive) heart failure Code(s): I50.23 - ACUTE ON CHRONIC SYSTOLIC (CONGESTIVE) HEART FAILURE (9) Hyperlipidemia Code(s): E78.5 - HYPERLIPIDEMIA, UNSPECIFIED Qualifiers: Hyperlipidemia type: unspecified Qualified Code(s): E78.5 - Hyperlipidemia , unspecified (10) Hypomagnesemia Code(s): E83.42 - HYPOMAGNESEMIA
== END 2017-09-15 10:18 | disposition home or self-care (01) | DRG 291 ==
LOC: JER 07:24 → JERBED 09:52 → J4W 09-12 18:05
PROVIDERS: ADMIT Internal Medicine; ATTEND Internal Medicine
DX: I13.0 Hypertensive heart and chronic kidney disease with heart failure and stage 1 through stage 4 chronic kidney disease, or unspecified chronic kidney disease (principal); I50.23 Acute on chronic systolic (congestive) heart failure; N17.9 Acute kidney failure, unspecified; Z95.810 Presence of automatic (implantable) cardiac defibrillator; N18.2 Chronic kidney disease, stage 2 (mild); I25.10 Atherosclerotic heart disease of native coronary artery without angina pectoris; M10.9 Gout, unspecified; E03.9 Hypothyroidism, unspecified; E78.5 Hyperlipidemia, unspecified; E83.42 Hypomagnesemia; I25.5 Ischemic cardiomyopathy; I65.22 Occlusion and stenosis of left carotid artery; I35.0 Nonrheumatic aortic (valve) stenosis
CPT/HCPCS: 36415; 71045-TC; 80048; 80053; 80061; 81003; 81015; 82550; 83605; 83690; 83721; 83735; 83880; 84443; 84484; 84550; 85025; 85027; 85610; 85730; 87040; 87804; 93005; 93010; 99285-25

== ENCOUNTER 2017-09-18 18:05 | Emergency (ER) | payer OTHER, MEDICARE ==
[2017-09-18 18:14] VITALS: BMI 29.3
--- NOTE | 2017-09-18 20:08 | PDOC ---
History of Present Illness - General History Source: Patient Exam Limitations: No Limitations - History of Present Illness Initial Comments: 09/18/17 20:34 The patient is a 82 year old male, with a significant past medical history of hypertension, hyperlipidemia, CAD (AV & MV repair, pacemaker placement), and CHF , who presents to the emergency department with, approx. three weeks of fever, generalized body aches and productive cough with yellow sputum. The patient reports he was sent in to the ED for evaluation by his PCP Dr. Desai. The patient reports he was recently hospitalized here at [place]. However, the patient reports he was not diagnosed with the flu and they were unsure of the cause of illness. He denies any recent headache or dizziness. He denies any recent nausea, vomit, diarrhea or constipation. He denies any recent chest pain or shortness of breath. Allergies: Multiple Allergies. See nursing notes. Primary Care Physician: Dr. Desai <Tu Stein - Last Filed: 09/18/17 20:34> <Roselia Kilpatrick - Last Filed: 09/18/17 22:07> - General Chief Complaint: Weakness Stated Complaint: PCP SENT Time Seen by Provider: 09/18/17 19:33 Past History <Tu Stein - Last Filed: 09/18/17 20:34> - Past Medical History Anemia: No Asthma: No Cancer: No Cardiac Disorders: Yes (AV&MV repair) CVA: Yes (TIA 10 yrs ago) COPD: No CHF: Yes Dementia: No Diabetes: No GI Disorders: No Disorders: No HTN: Yes Hypercholesterolemia: Yes Liver Disease: No Seizures: No Thyroid Disease: Yes (Hypothyroid) - Surgical History Abdominal Surgery: No Appendectomy: No Cardiac Surgery: Yes (Aortic/Mitral valve replacement; CABG; AICD) Cholecystectomy: No Lung Surgery: No Neurologic Surgery: No Orthopedic Surgery: Yes (Left knee arthoscopy) - Immunization History Immunization Up to Date: Yes - Suicide/Smoking/Psychosocial Hx Smoking Status: Yes Smoking History: Never smoked Have you smoked in the past 12 months: No Number of Cigarettes Smoked Daily: 20 If you are a former smoker, when did you quit?: 4 years ago Information on smoking cessation initiated: No Hx Alcohol Use: No Drug/Substance Use Hx: No Substance Use Type: None Hx Substance Use Treatment: No <Kilpatrick,Roselia - Last Filed: 09/18/17 22:07> - Past Medical History Allergies/Adverse Reactions: Allergies Allergy/AdvReac Type Severity Reaction Status Date / Time lisinopril Allergy Intermediate Cough Verified 09/18/17 20:07 Penicillins Allergy Intermediate Rash Verified 09/18/17 20:07 pravastatin sodium Allergy Intermediate MUSCLE PAIN Verified 09/18/17 20:07 [From Pravachol] simvastatin [From Zocor] Allergy Intermediate MUSCLE PAIN Verified 09/18/17 20: 07 sertraline Allergy Unknown Verified 09/18/17 20:07 Home Medications: Ambulatory Orders Allopurinol [Zyloprim -] 300 mg PO DAILY 12/19/15 Aspirin [ASA -] 81 mg PO DAILY 12/19/15 Clopidogrel Bisulfate [Plavix -] 75 mg PO DAILY 12/19/15 Levothyroxine [Synthroid -] 25 mcg PO DAILY 12/19/15 Paroxetine HCl [Paxil -] 10 mg PO DAILY 12/19/15 Rosuvastatin [Crestor -] 20 mg PO HS 12/19/15 Carvedilol [Coreg -] 3.125 mg PO HS #30 tablet 03/12/16 Spironolactone [Aldactone -] 25 mg PO DAILY #30 tablet 03/12/16 Furosemide [Lasix -] 40 mg PO DAILY 06/30/16 Colesevelam HCl [Welchol (Nf)] 625 mg PO DAILY 06/13/17 Levofloxacin [Levaquin -] 250 mg PO DAILY 3 Days #3 tablet 09/14/17 Review of Systems - Review of Systems Comments:: 09/18/17 20:35 GENERAL/CONSTITUTIONAL: +Fever. +Weakness. HEAD, EYES, EARS, NOSE AND THROAT: No change in vision. No ear pain or discharge. No sore throat. CARDIOVASCULAR: No chest pain or shortness of breath. RESPIRATORY: +Productive cough with yellow sputum. No wheezing, or hemoptysis. GASTROINTESTINAL: No nausea, vomiting, diarrhea or constipation. GENITOURINARY: No dysuria, frequency, or change in urination. MUSCULOSKELETAL: +Generalized body aches. SKIN: No rash NEUROLOGIC: No headache, vertigo, loss of consciousness, or change in strength/ sensation. ENDOCRINE: No increased thirst. No abnormal weight change. HEMATOLOGIC/LYMPHATIC: No anemia, easy bleeding, or history of blood clots. ALLERGIC/IMMUNOLOGIC: No hives or skin allergy. <Tu Stein - Last Filed: 09/18/17 20:34> *Physical Exam - Vital Signs Last Vital Signs Temp Pulse Resp BP Pulse Ox 98.5 F 77 18 115/63 97 09/18/17 18:11 09/18/17 18:11 09/18/17 20:10 09/18/17 18:11 09/18/17 20:10 - Physical Exam Comments: 09/18/17 20:37 GENERAL: Awake, alert, and fully oriented. HEAD: No signs of trauma EYES: PERRLA, EOMI, sclera anicteric, conjunctiva clear ENT: Auricles normal inspection, hearing grossly normal, nares patent, oropharynx clear without exudates. Moist mucosa NECK: Normal ROM, supple, no lymphadenopathy, JVD, or masses LUNGS: Breath sounds equal, clear to auscultation bilaterally. No wheezes, and no crackles HEART: Regular rate and rhythm, normal S1 and S2, no murmurs, rubs or gallops ABDOMEN: Soft, nontender, normoactive bowel sounds. No guarding, no rebound. No masses EXTREMITIES: Normal range of motion, no edema. No clubbing or cyanosis. No cords, erythema, or tenderness NEUROLOGICAL: Cranial nerves II through XII grossly intact. Normal speech. SKIN: Warm, Dry, normal turgor, no rashes or lesions noted. <Tu Steni - Last Filed: 09/18/17 20:34> - Vital Signs Last Vital Signs Temp Pulse Resp BP Pulse Ox 98.5 F 77 18 115/63 97 09/18/17 18:11 09/18/17 18:11 09/18/17 18:11 09/18/17 18:11 09/18/17 18:11 <Roselia Kilpatrick - Last Filed: 09/18/17 22:07> ED Treatment Course - LABORATORY CBC & Chemistry Diagram: 09/18/17 20:40 09/18/17 20:40 <Roselia Kilpatrick - Last Filed: 09/18/17 22:07> Medical Decision Making - Medical Decision Making 09/18/17 20:24 Pt comes with 3 weeks of illness: fever, coughing, yellow sputum, and chills and total body aches. PMD advised he comes and gets admitted for the flu/ dehydration/rule out pneumonia. Prior to today his influenza culture and workup has been normal at his PMDs office. Pt will have a full workup here and he will be hydrated as he is not eating or drinking, and he is febrile and he looks awful. 09/18/17 21:19 Pt has positive influenza. He will be admitted for hydration. I will call PMD Giselle when all of his results return. 09/18/17 21:57 UA normal; Chem hemolyzed; we repeated it. Still pending 09/18/17 22:06 Pt's CXR looks better than last week; clear AP CXR <Roselia Kilpatrick - Last Filed: 09/18/17 22:07> *DC/Admit/Observation/Transfer - Attestations Scribe Attestion: 09/18/17 20:38 Documentation prepared by Tu Stein, acting as medical office secretary for Roselia Kilpatrick MD. <Tu Stein - Last Filed: 09/18/17 20:34> <Roselia Kilpatrick - Last Filed: 09/18/17 22:07> Diagnosis at time of Disposition: Influenza A, Dehydration - Referrals Referrals: Hector Desai MD [Primary Care Provider] - - Patient Instructions - Post Discharge Activity
[2017-09-18] MEDS ORDERED: SODIUM CHLORIDE 0.9% 500 ML INFUS.BAG IV ONE (20:20)
[2017-09-18] MEDS ORDERED: ACETAMINOPHEN 1000 MG/100 ML VIAL (NON FORMULARY) IVPB ONE (20:20)
[2017-09-18] MEDS ORDERED: ACETAMINOPHEN INJECTION 100 ML IVPB ONE (20:25)
[2017-09-18 20:53] LABS: BASO % 0.7 % (0-2.0); EOS % 1.2 % (0-4.5); HEMATOCRIT 42.1 % (35.4-49); HEMOGLOBIN 13.6 GM/dL (11.7-16.9); LYMPH % 22.2 % (8-40); MCH 30.9 pg (25.7-33.7); MCHC 32.3 g/dl (32.0-35.9); MEAN CELL VOLUME 95.6 fl (80-96); MEAN PLT VOLUME 9.4 fl (7.5-11.1); MONO % 14.2 % (3.8-10.2); NEUT % 61.7 % (42.8-82.8); PLATELET COUNT 139 K/MM3 (134-434); RBC 4.41 M/mm3 (4.00-5.60); RDW 15.8 % (11.9-15.9); WHITE BLOOD COUNT 5.2 K/mm3 (4.0-10.0)
[2017-09-18 21:20] LABS: URINE APPEARANCE CLEAR; URINE BILIRUBIN NEGATIVE (NEGATIVE); URINE BLOOD NEGATIVE (NEGATIVE); URINE COLOR YELLOW; URINE GLUCOSE (UA) NEGATIVE (NEGATIVE); URINE KETONE NEGATIVE (NEGATIVE); URINE LEUK ESTERASE NEGATIVE (NEGATIVE); URINE NITRITE NEGATIVE (NEGATIVE); URINE UROBILINOGEN NEGATIVE mg/dL (0.2-1.0)
[2017-09-18 21:21] LABS: URINE PROTEIN 1+ (NEGATIVE)
[2017-09-18 21:22] LABS: URINE HYALINE CAST 2 /lpf; URINE MUCUS RARE
[2017-09-18 22:19] LABS: ALBUMIN 3.1 g/dl (3.4-5.0); ALK PHOS 74 U/L (45-117); ANION GAP 8 (8-16); BILIRUBIN,TOTAL 0.5 mg/dL (0.2-1.0); BLOOD UREA NITROGEN 36 mg/dL (7-18); CALCIUM 7.4 mg/dL (8.5-10.1); CHLORIDE 107 mmol/L (98-107); CO2 23 mmol/L (21-32); CREATININE 2.1 mg/dL (0.7-1.3); GLUCOSE,RANDOM 98 mg/dL (74-106); POTASSIUM 4.5 mmol/L (3.5-5.1); SGOT/AST 43 U/L (15-37); SGPT/ALT 60 U/L (12-78); SODIUM 138 mmol/L (136-145); TOT PROT 6.1 g/dl (6.4-8.2)
[2017-09-18] MEDS ORDERED: OSELTAMIVIR PHOSPHATE 75 MG CAPSULE ONE (22:32)
[2017-09-18 23:44] VITALS: BP 120/68; PULSE 75; TEMP 97.7
--- NOTE | 2017-09-19 08:49 | EKG ---
Test Reason : Blood Pressure : / mmHG Vent. Rate : 075 BPM Atrial Rate : 075 BPM P-R Int : 246 ms QRS Dur : 168 ms QT Int : 474 ms P-R-T Axes : 000 108 -69 degrees QTc Int : 529 ms AV dual-paced rhythm with prolonged AV conduction Biventricular pacemaker detected ABNORMAL ECG WHEN COMPARED WITH ECG OF 13-SEP-2017 09:30, NO SIGNIFICANT CHANGE WAS FOUND Confirmed by Goran Smith ([id number]) on 09/19/2017 8:49:19 AM Referred By: Confirmed By:Goran Smith
[2017-09-19] MEDS ORDERED: OSELTAMIVIR PHOSPHATE 75 MG CAPSULE PO SCH (10:00)
== END 2017-09-18 23:44 | disposition home or self-care (01) ==
LOC: JER 18:05
PROC: 3E033NZ Introduction of Analgesics, Hypnotics, Sedatives into Peripheral Vein, Percutaneous Approach (ICD-10-PCS; principal; 2017-09-18)
DX: J09.X2 Influenza due to identified novel influenza A virus with other respiratory manifestations (principal); E86.0 Dehydration; I25.10 Atherosclerotic heart disease of native coronary artery without angina pectoris; I11.0 Hypertensive heart disease with heart failure; Z95.0 Presence of cardiac pacemaker; Z95.4 Presence of other heart-valve replacement; E78.00 Pure hypercholesterolemia, unspecified; E03.9 Hypothyroidism, unspecified; Z86.73 Personal history of transient ischemic attack (TIA), and cerebral infarction without residual deficits
CPT/HCPCS: 36415; 71045-TC; 80053; 81003; 81015; 82550; 84484; 85025; 87040; 87086; 87804; 93005; 93010; 96374; 99284-25

== ENCOUNTER 2018-09-10 05:39 | Inpatient (IN) | payer OTHER, MEDICARE ==
--- NOTE | 2018-09-10 07:43 | PDOC ---
History of Present Illness - General Chief Complaint: Shortness of Breath Stated Complaint: DIFFICULTY BREATHING Time Seen by Provider: 09/10/18 07:02 History Source: Patient Exam Limitations: No Limitations - History of Present Illness Initial Comments: 09/10/18 07:32 Pt. is an 83 y.o. M w/ PMHx. of HTN, CHF, HTN, CAD, PAD(left ICA completely occluded), Gout, OA, Hypothyroidism and anxiety presents to the ED with fever, nausea, body aches and pain, rhinorrhea and increased dyspnea on exertion. Pt. states that at home he has been feeling " under the weather" for the last couple weeks and as if "something was brewing," when last night he spiked a fever to 102. Pt. called his PCP: Dr. Desai, who said he should come in to the ED. Pt. took a Tylenol decided to come in this AM after he found he was short of breath with minimal activity. Pt. endorses generalized body aches, SMITH , nausea, fevers and chills. Pt. endorses a sick contact of his "lady friend." Pt. states that he is up to date with all his vaccines. Pt. denies any diarrhea or constipation, polyuria or dysuria, sexual activity, productive cough or chest pain. Pt. has had an echo within the last year and was not reported to have significant worsening of cardiac function from the prior echo in 2016. 09/10/18 08:05 CBC, CMP, Mag, BCx. CXR, EKG, Troponin and Flu swab ordered. 09/10/18 11:25 Negative Flu Troponins + @ 0.11 EKG looks similar to old EKG, dually paced Case discussed with Dr. Desai and Dr. Kidd's IV Lasix ordered BNP: ~23k; Pt. will be admitted for CHF exacerbation to [facility] Obs. Timing/Duration: getting worse Severity: mild Modifying Factors: improves with: movement (worsens SOB), rest (improves SOB) Associated Symptoms: reports: fever/chills, nausea/vomiting (nausea, no vomiting ), shortness of breath, weakness. denies: chest pain, cough, diaphoresis, headaches Aspirin Received prior to arrival: Yes: 81 mg x 2 Beta Sarah Taken at Home(Core Measure): No (Takes in the evening ) Past History - Travel Traveled outside of the country in the last 30 days: No Close contact w/someone who was outside of country & ill: No - Past Medical History Allergies/Adverse Reactions: Allergies Allergy/AdvReac Type Severity Reaction Status Date / Time lisinopril Allergy Intermediate Cough Verified 09/10/18 06:00 Penicillins Allergy Intermediate Rash Verified 09/10/18 06:00 pravastatin sodium Allergy Intermediate MUSCLE PAIN Verified 09/10/18 06:00 [From Pravachol] simvastatin [From Zocor] Allergy Intermediate MUSCLE PAIN Verified 09/10/18 06: 00 sertraline Allergy Unknown Verified 09/10/18 06:00 Home Medications: Ambulatory Orders Allopurinol [Zyloprim -] 300 mg PO DAILY 12/19/15 Aspirin [ASA -] 81 mg PO DAILY 12/19/15 Clopidogrel Bisulfate [Plavix -] 75 mg PO DAILY 12/19/15 Levothyroxine [Synthroid -] 25 mcg PO DAILY 12/19/15 Paroxetine HCl [Paxil -] 10 mg PO DAILY 12/19/15 Rosuvastatin [Crestor -] 20 mg PO HS 12/19/15 Carvedilol [Coreg -] 3.125 mg PO HS #30 tablet 03/12/16 Spironolactone [Aldactone -] 25 mg PO DAILY #30 tablet 03/12/16 Furosemide [Lasix -] 40 mg PO DAILY 06/30/16 Colesevelam HCl [Welchol (Nf)] 625 mg PO DAILY 06/13/17 Anemia: No Asthma: No Cancer: No Cardiac Disorders: Yes (AV&MV repair) CVA: Yes (TIA 10 yrs ago) COPD: No CHF: Yes Dementia: No Diabetes: No GI Disorders: No Disorders: No HTN: Yes Hypercholesterolemia: Yes Liver Disease: No Psychiatric Problems: Yes (Anxiety ) Seizures: No Thyroid Disease: Yes (Hypothyroid) - Surgical History Abdominal Surgery: No Appendectomy: No Cardiac Surgery: Yes (Aortic/Mitral valve replacement; CABG; AICD) Cholecystectomy: No Lung Surgery: No Neurologic Surgery: No Orthopedic Surgery: Yes (Left knee arthoscopy) - Immunization History Immunization Up to Date: Yes - Suicide/Smoking/Psychosocial Hx Smoking Status: Yes Smoking History: Never smoked Have you smoked in the past 12 months: No Number of Cigarettes Smoked Daily: 20 If you are a former smoker, when did you quit?: 4 years ago Information on smoking cessation initiated: No Hx Alcohol Use: No Drug/Substance Use Hx: No Substance Use Type: None Hx Substance Use Treatment: No Review of Systems - Review of Systems Able to Perform ROS?: Yes Is the patient limited Sami proficient: No Constitutional: Yes: Symptoms Reported, Chills, Fever, Malaise, Weakness HEENTM: Yes: Symptoms Reported, Nose Congestion, Dental Problems. No: Blurred Vision, Ear Pain, Tinnitus Respiratory: Yes: Orthopnea, Shortness of Breath, SOB with Exertion. No: Wheezing Cardiac (ROS): Yes: Lightheadedness. No: Chest Pain, Edema, Palpitations, Chest Tightness ABD/GI: Yes: Nausea. No: Constipated, Diarrhea, Vomiting : No: Burning, Dysuria, Discharge, Frequency, Flank Pain, Hematuria, Incontinence, Pain, Urgency Musculoskeletal: Yes: Gout, Joint Swelling, Muscle Pain, Muscle Weakness Integumentary: No: Symptoms Reported Neurological: Yes: Weakness, Dizziness. No: Headache Endocrine: No: Symptoms Reported Hematologic/Lymphatic: No: Symptoms Reported *Physical Exam - Vital Signs Last Vital Signs Temp Pulse Resp BP Pulse Ox 97.4 F L 72 18 104/62 97 09/10/18 06:00 09/10/18 06:00 09/10/18 06:00 09/10/18 06:00 09/10/18 06:47 - Physical Exam General Appearance: Yes: Nourished, Appropriately Dressed, Apparent Distress HEENT: positive: [place], Normal ENT Inspection, Normal Voice, Symmetrical, Pharynx Normal, Nasal Congestion, Rhinorrhea, Hearing Decreased. negative: Pharyngeal Erythema, Tonsillar Exudate, Tonsillar Erythema, Sinus Tenderness Neck: positive: Normal Thyroid, Supple. negative: Tender, Lymphadenopathy (R), Lymphadenopathy (L), Tender lateral, Tender midline, Thyromegaly Respiratory/Chest: positive: Lungs Clear, Normal Breath Sounds. negative: Chest Tender, Respiratory Distress, Accessory Muscle Use, Crackles, Rales, Wheezing Cardiovascular: positive: Regular Rhythm, Regular Rate, S1, S2, Murmur. negative: Edema, JVD Vascular Pulses: Dorsalis-Pedis (R): 2+ (2+ radial ), Doralis-Pedis (L): 2+ (2+ radial ) Gastrointestinal/Abdominal: positive: Normal Bowel Sounds, Soft. negative: Distended, Guarding, Rebound, Tenderness Male Genitalia: negative: CVAT Rectal Exam: positive: deferred Musculoskeletal: positive: Normal Inspection. negative: CVA Tenderness Extremity: positive: Normal Capillary Refill, Normal Inspection. negative: Coldness, Cyanosis, Pedal Edema, Swelling, Calf Tenderness Integumentary: positive: Dry, Warm Neurologic: positive: Fully Oriented, Alert, Normal Response, Respond to painful stimul, Responsive Moderate Sedation - Procedure Monitoring Vital Signs: Procedure Monitoring Vital Signs Temperature 97.4 F L 09/10/18 06:00 Pulse Rate 72 09/10/18 06:00 Respiratory Rate 18 09/10/18 06:00 Blood Pressure 104/62 09/10/18 06:00 O2 Sat by Pulse Oximetry (%) 97 09/10/18 06:47 ED Treatment Course - LABORATORY CBC & Chemistry Diagram: 09/10/18 09:00 09/10/18 09:00 *DC/Admit/Observation/Transfer Diagnosis at time of Disposition: CHF (congestive heart failure) Qualifiers: Heart failure type: biventricular Qualified Code(s): I50.82 - Biventricular heart failure - Discharge Dispostion Decision to Admit order: Yes - Referrals Referrals: Hector Desai MD [Staff Physician] - - Patient Instructions - Post Discharge Activity
--- NOTE | 2018-09-10 08:40 | PDOC ---
Attending Attestation - HPI HPI: 09/10/18 09:54 The patient is a 83 year old male, with a significant past medical history of HTN, CHF, HTN, CAD, Gout, OA, Hypothyroidism and anxiety, who presents to the emergency department with, diffuse body aches, fever (102F last night), nausea, and worsening dyspnea upon exertion. As per patient, he has been feeling sick for the last couple of weeks and endorses calling his PCP who advised him to report to the ED for further evaluation. He denies any recent diarrhea or constipation. He denies any recent chest pain. He denies any recent dysuria, frequency, urgency or hematuria. Allergies: sertraline, lisinopril, penicillins, Pravachol, Zocor Past surgical history: Hernia repair, Aortic/Mitral valve replacement; CABG; AICD, left knee arthroscopic surgery. Primary Care Physician: Dr. Desai Diet Assistant: Dr. Kidd - Medical Decision Making 09/10/18 11:[address] Desai, case discussed with resident Dr. Villalobos. 11:30am Call placed to Dr. Kidd, patient's counter dish carrier, case discussed with resident Dr. Villalobos. <Michel Love - Last Filed: 09/10/18 11:35> - Resident Resident Name: Víctor Villalobos - ED Attending Attestation I have performed the following: I have examined & evaluated the patient, The case was reviewed & discussed with the resident, I agree w/resident's findings & plan, Exceptions are as noted - Physicial Exam PE: GENERAL: Awake, alert, and fully oriented, in no acute distress HEAD: No signs of trauma EYES: PERRLA, EOMI, sclera anicteric, conjunctiva clear ENT: Auricles normal inspection, hearing grossly normal, nares patent, oropharynx clear without exudates. Moist mucosa NECK: Normal ROM, supple, no lymphadenopathy, JVD, or masses LUNGS: Breath sounds equal, clear to auscultation bilaterally. No wheezes, and no crackles HEART: Regular rate and rhythm, normal S1 and S2, no murmurs, rubs or gallops ABDOMEN: Soft, nontender, normoactive bowel sounds. No guarding, no rebound. No masses EXTREMITIES: Normal range of motion, no edema. No clubbing or cyanosis. No cords, erythema, or tenderness NEUROLOGICAL: Cranial nerves II through XII grossly intact. Normal speech, normal gait. Motor and sensation intact SKIN: Warm, Dry, normal turgor, no rashes or lesions noted. - Medical Decision Making Pt with fever to 102 since last night, flu negative, CXR negative. Does not appear toxic. Noted to have positive troponin. Contacted patient's PMD and counter dish carrier, will admit. <Nicole Mckeon - Last Filed: 09/10/18 13:58> Attestations - Attestations 09/10/18 09:54 Documentation prepared by Michel Love, acting as medical laboratory technologist for Nicole Mckeon MD. <Michel Love - Last Filed: 09/10/18 11:35>
[2018-09-10 09:22] LABS: BASO % 0.7 % (0-2.0); EOS % 1.7 % (0-4.5); HEMATOCRIT 38.6 % (35.4-49); HEMOGLOBIN 13.2 GM/dL (11.7-16.9); LYMPH % 25.1 % (8-40); MCHC 34.1 g/dl (32.0-35.9); MEAN CELL VOLUME 93.8 fl (80-96); MEAN PLT VOLUME 9.2 fl (7.5-11.1); MONO % 11.1 % (3.8-10.2); NEUT % 61.4 % (42.8-82.8); PLATELET COUNT 128 K/MM3 (134-434); RBC 4.11 M/mm3 (4.00-5.60); RDW 15.8 % (11.9-15.9); WHITE BLOOD COUNT 7.1 K/mm3 (4.0-10.0)
[2018-09-10 09:37] LABS: ALBUMIN 3.4 g/dl (3.4-5.0); ALK PHOS 91 U/L (45-117); ANION GAP 8 MMOL/L (8-16); BILIRUBIN,TOTAL 1.1 mg/dL (0.2-1); BLOOD UREA NITROGEN 38 mg/dL (7-18); CALCIUM 8.6 mg/dL (8.5-10.1); CHLORIDE 107 mmol/L (98-107); CO2 25 mmol/L (21-32); GLUCOSE,RANDOM 91 mg/dL (74-106); MAGNESIUM 1.8 mg/dL (1.8-2.4); POTASSIUM 3.9 mmol/L (3.5-5.1); SGOT/AST 24 U/L (15-37); SGPT/ALT 32 U/L (13-61); SODIUM 140 mmol/L (136-145); TOT PROT 6.5 g/dl (6.4-8.2)
[2018-09-10 10:54] LABS: URINE APPEARANCE CLEAR; URINE BILIRUBIN NEGATIVE (<2.0 mg/dL); URINE COLOR LTYELLOW; URINE GLUCOSE (UA) NEGATIVE (NEGATIVE); URINE KETONE NEGATIVE (NEGATIVE); URINE LEUK ESTERASE NEGATIVE (NEGATIVE); URINE NITRITE NEGATIVE (NEGATIVE); URINE PROTEIN NEGATIVE (NEGATIVE); URINE UROBILINOGEN NEGATIVE mg/dL (0.2-1.0)
[2018-09-10] MEDS ORDERED: FUROSEMIDE 40 MG/4 ML INJECTABLE VIAL IVPUSH ONE (11:50)
[2018-09-10] MEDS ORDERED: FUROSEMIDE 40 MG/4 ML INJECTABLE VIAL ONE (11:59)
[2018-09-10 12:13] LABS: N-TERMINAL BNP 23131.7 pg/ml (5-450)
--- NOTE | 2018-09-10 12:24 | CON.CARD ---
Consult Consult Specialty:: Cardiology - History of Present Illness History of Present Illness: Pt. is an 83 y.o. M w/ PMHx. of HTN, CHF, HTN, CAD, PAD(left ICA completely occluded), Gout, OA, Hypothyroidism and anxiety presents to the ED with fever, nausea, body aches and pain, rhinorrhea and increased dyspnea on exertion. Pt. states that at home he has been feeling " under the weather" for the last couple weeks and as if "something was brewing," when last night he spiked a fever to 102. Pt. called his PCP: Dr. Desai, who said he should come in to the ED. Pt. took a Tylenol decided to come in this AM after he found he was short of breath with minimal activity. Pt. endorses generalized body aches, SMITH , nausea, fevers and chills. Pt. endorses a sick contact of his "lady friend." Pt. states that he is up to date with all his vaccines. Pt. denies any diarrhea or constipation, polyuria or dysuria, sexual activity, productive cough or chest pain. Pt. has had an echo within the last year and was not reported to have significant worsening of cardiac function from the prior echo in 2016. 09/10/18 08:05 CBC, CMP, Mag, BCx. CXR, EKG, Troponin and Flu swab ordered. 09/10/18 11:25 Negative Flu Troponins + @ 0.11 EKG looks similar to old EKG, dually paced Case discussed with Dr. Desai Call made to Dr. Kidd's service. PMH s/p bio AVR and MV repair [facility] Dr. Prasad Ongoing medical problems [employer] AICD BIvi-pacing 2015 Dr. 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 No: Aneurysm, Aortic Insufficiency, Aortic Stenosis, CAD, Deep Vein Thrombosis, [place], Mitral Insufficiency, Mitral Stenosis, Pulmonary Hypertension, Other Renal/: Yes: Renal Inusuff (CKD (stage 1)). No: Renal Failure, BPH, Cancer, Hematuria, Hemodialysis, Neurogenic Bladder, Renal Calculi, UTI, Other Psych: Yes: Anxiety, Other (affective dz) Musculoskeletal: Yes: Osteoarthritis Rheumatology: Yes: Gout. No: Fibromyalgia, Lupus, Rheumatoid Arthritis, Sarcoidosis, Vasculitis, Other Endocrine: Yes: Hypothyroidism, Other (Gluc intolerance) - Past Surgical History Past Surgical History: Yes: Permanent Pacemaker, Valve Replacement. No: None, AAA Repair, AICD, Amputation, Appendectomy, Arthrosocopy, AV Fistula/Graft, Bariatric Surgery, Breast Biopsy, Bypass, CABG, Carotid Endarterectomy, Cataract Removal, Cholecystectomy, Colectomy, Colonoscopy, Colostomy, Craniotomy , , Cystectomy, Hernia Repair, Hysterectomy, Ileal Conduit, Ileosotomy , Joint Replacement, Kidney Transplant, Laminectomy, Liver Transplant, Mastectomy, Nephrectomy, Oopherectomy, Orchiectomy, Prostatectomy, Splenectomy, Stent, Thoracotomy, TURP, Tonsillectomy, Tubal Ligation, Upper Endoscopy, Vasectomy, Vein Stripping/Ligation - Alcohol/Substance Use Hx Alcohol Use: No History of Substance Use: reports: None - Smoking History Smoking history: Never smoked Have you smoked in the past 12 months: No Aproximately how many cigarettes per day: 20 If you are a former smoker, when did you quit?: 4 years ago - Social History ADL: Independent 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 History of Recent Travel: Yes (went to [place] 1 week ago) Home Medications - Allergies Allergies/Adverse Reactions: Allergies Allergy/AdvReac Type Severity Reaction Status Date / Time lisinopril Allergy Intermediate Cough Verified 09/10/18 06:00 Penicillins Allergy Intermediate Rash Verified 09/10/18 06:00 pravastatin sodium Allergy Intermediate MUSCLE PAIN Verified 09/10/18 06:00 [From Pravachol] simvastatin [From Zocor] Allergy Intermediate MUSCLE PAIN Verified 09/10/18 06: 00 sertraline Allergy Unknown Verified 09/10/18 06:00 - Home Medications Home Medications: Ambulatory Orders Allopurinol [Zyloprim -] 300 mg PO DAILY 12/19/15 Aspirin [ASA -] 81 mg PO DAILY 12/19/15 Clopidogrel Bisulfate [Plavix -] 75 mg PO DAILY 12/19/15 Levothyroxine [Synthroid -] 25 mcg PO DAILY 12/19/15 Paroxetine HCl [Paxil -] 10 mg PO DAILY 12/19/15 Rosuvastatin [Crestor -] 20 mg PO HS 12/19/15 Carvedilol [Coreg -] 3.125 mg PO HS #30 tablet 03/12/16 Spironolactone [Aldactone -] 25 mg PO DAILY #30 tablet 03/12/16 Furosemide [Lasix -] 40 mg PO DAILY 06/30/16 Colesevelam HCl [Welchol (Nf)] 625 mg PO DAILY 06/13/17 Family Disease History - Family Disease History Family Disease History: Diabetes: Mother, Heart Disease: Mother Review of Systems - Review of Systems Constitutional: reports: No Symptoms Eyes: reports: No Symptoms HENT: reports: No Symptoms Neck: reports: No Symptoms Cardiovascular: reports: Shortness of Breath Respiratory: reports: SOB Gastrointestinal: reports: No Symptoms Genitourinary: reports: No Symptoms Breasts: reports: No Symptoms Reported Musculoskeletal: reports: No Symptoms Integumentary: reports: No Symptoms Neurological: reports: No Symptoms Endocrine: reports: No Symptoms Hematology/Lymphatic: reports: No Symptoms Psychiatric: reports: No Symptoms Vital Signs: Vital Signs Temperature 97.4 F L 09/10/18 06:00 Pulse Rate 72 09/10/18 06:00 Respiratory Rate 18 09/10/18 06:00 Blood Pressure 104/62 09/10/18 06:00 O2 Sat by Pulse Oximetry (%) 97 09/10/18 06:47 Constitutional: Yes: Well Nourished, No Distress, Calm Eyes: Yes: WNL, Conjunctiva Clear, EOM Intact HENT: Yes: WNL, Atraumatic, Normocephalic Neck: Yes: WNL, Supple, Trachea Midline Respiratory: Yes: WNL, Regular, CTA Bilaterally Gastrointestinal: Yes: WNL, Normal Bowel Sounds Renal/: Yes: WNL Cardiovascular: Yes: WNL, Regular Rate and Rhythm Heart Sounds: Yes: S1, S2 Musculoskeletal: Yes: WNL Extremities: Yes: WNL Integumentary: Yes: WNL Neurological: Yes: WNL, Alert, Oriented ...Motor Strength: WNL Psychiatric: Yes: WNL, Alert, Oriented - Other Data Labs, Other Data: CBC, BMP 09/10/18 09:00 09/10/18 09:00 Troponin, BNP 09/10/18 09:00 Troponin I 0.11 H Troponin, BNP 09/10/18 09:00 Troponin I 0.11 H Imaging - Results Chest X-ray: Image Reviewed (chf new pleural effusions) EKG: Image Reviewed (bivipacing) Problem List - Problems (1) CHF (congestive heart failure) Code(s): I50.9 - HEART FAILURE, UNSPECIFIED Qualifiers: Heart failure type: biventricular Qualified Code(s): I50.82 - Biventricular heart failure (2) AICD (automatic cardioverter/defibrillator) present Code(s): Z95.810 - PRESENCE OF AUTOMATIC (IMPLANTABLE) CARDIAC DEFIBRILLATOR (3) Acute exacerbation of CHF (congestive heart failure) Code(s): I50.9 - HEART FAILURE, UNSPECIFIED (4) Acute exacerbation of congestive heart failure Code(s): I50.9 - HEART FAILURE, UNSPECIFIED Qualifiers: (5) Acute on chronic combined systolic and diastolic CHF, NYHA class 3 Code(s): I50.43 - ACUTE ON CHRONIC COMBINED SYSTOLIC AND DIASTOLIC HRT FAIL (6) Acute on chronic renal failure Code(s): N17.9 - ACUTE KIDNEY FAILURE, UNSPECIFIED; N18.9 - CHRONIC KIDNEY DISEASE, UNSPECIFIED Qualifiers: (7) Acute on chronic systolic (congestive) heart failure Code(s): I50.23 - ACUTE ON CHRONIC SYSTOLIC (CONGESTIVE) HEART FAILURE (8) Acute on chronic systolic and diastolic heart failure, NYHA class 1 Code(s): I50.43 - ACUTE ON CHRONIC COMBINED SYSTOLIC AND DIASTOLIC HRT FAIL (9) Angioneurotic edema Code(s): T78.3XXA - ANGIONEUROTIC EDEMA, INITIAL ENCOUNTER Qualifiers: (10) Anxiety and depression Code(s): F41.9 - ANXIETY DISORDER, UNSPECIFIED; F32.9 - MAJOR DEPRESSIVE DISORDER, SINGLE EPISODE, UNSPECIFIED (11) Aortic stenosis Code(s): I35.0 - NONRHEUMATIC AORTIC (VALVE) STENOSIS (12) Aortic valve replaced Code(s): Z95.2 - PRESENCE OF PROSTHETIC HEART VALVE (13) Arm swelling Code(s): M79.89 - OTHER SPECIFIED SOFT TISSUE DISORDERS (14) Arteriosclerotic heart disease (ASHD) Code(s): I25.10 - ATHSCL HEART DISEASE OF [place] CORONARY ARTERY W/O ANG PCTRS (15) Artificial cardiac pacemaker Code(s): Z95.0 - PRESENCE OF CARDIAC PACEMAKER (16) Aspirin long-term use Code(s): Z79.82 - SENIOR LIVING (CURRENT) USE OF ASPIRIN (17) CAD (coronary artery disease) Code(s): I25.10 - ATHSCL HEART DISEASE OF [place] CORONARY ARTERY W/O [facility] PCTRS (18) Carotid artery disease Code(s): I77.9 - DISORDER OF ARTERIES AND ARTERIOLES, UNSPECIFIED (19) Carotid occlusion, left Code(s): I65.22 - OCCLUSION AND STENOSIS OF LEFT CAROTID ARTERY (20) Chronic renal insufficiency Code(s): N18.9 - CHRONIC KIDNEY DISEASE, UNSPECIFIED (21) DVT prophylaxis Code(s): [id number] - (22) Dehydration Code(s): E86.0 - DEHYDRATION (23) Dyspnea Code(s): R06.00 - DYSPNEA, UNSPECIFIED (24) Dysthymia (or depressive neurosis) Code(s): F34.1 - DYSTHYMIC DISORDER (25) Elevated troponin Code(s): R74.8 - ABNORMAL LEVELS OF OTHER SERUM ENZYMES (26) Epigastric abdominal pain Code(s): R10.13 - EPIGASTRIC PAIN (27) Fever Code(s): R50.9 - FEVER, UNSPECIFIED (28) Fluid collection (edema) in the arms, legs, hands and feet Code(s): R60.0 - LOCALIZED EDEMA (29) Gout Code(s): M10.9 - GOUT, UNSPECIFIED Qualifiers: Gout etiology: unspecified cause Presence of tophus: without tophus (30) Hyperlipidemia Code(s): E78.5 - HYPERLIPIDEMIA, UNSPECIFIED Qualifiers: (31) Hypertensive heart and chronic kidney disease with heart failure and stage 1 through stage 4 chronic kidney disease, or chronic kidney disease Code(s): I13.0 - HYP HRT & CHR KDNY DIS W HRT FAIL AND STG 1-4/UNSP CHR KDNY; I50.9 - HEART FAILURE, UNSPECIFIED; N18.9 - CHRONIC KIDNEY DISEASE, UNSPECIFIED (32) 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 Code(s): I13.10 - HYP HRT & CHR KDNY DIS W/O HRT FAIL, W STG 1-4/UNSP CHR KDNY (33) Hyperuricemia Code(s): E79.0 - HYPERURICEMIA W/O SIGNS OF INFLAM ARTHRIT AND TOPHACEOUS DIS (34) Hypomagnesemia Code(s): E83.42 - HYPOMAGNESEMIA (35) Hypothyroid Code(s): E03.9 - HYPOTHYROIDISM, UNSPECIFIED Qualifiers: Hypothyroidism type: acquired (36) Hypothyroid Code(s): E03.9 - HYPOTHYROIDISM, UNSPECIFIED Qualifiers: (37) ICD (implantable cardioverter-defibrillator) in place Code(s): Z95.810 - PRESENCE OF AUTOMATIC (IMPLANTABLE) CARDIAC DEFIBRILLATOR (38) Influenza A Code(s): J10.1 - FLU DUE TO OTH IDENT INFLUENZA VIRUS W OTH RESP MANIFEST (39) Leg swelling Code(s): M79.89 - OTHER SPECIFIED SOFT TISSUE DISORDERS (40) Lipid disorder Code(s): E78.9 - DISORDER OF LIPOPROTEIN METABOLISM, UNSPECIFIED (41) MGUS (monoclonal gammopathy of unknown significance) Code(s): D47.2 - MONOCLONAL GAMMOPATHY (42) Nosebleed Code(s): R04.0 - EPISTAXIS (43) PAD (peripheral artery disease) Code(s): I73.9 - PERIPHERAL VASCULAR DISEASE, UNSPECIFIED (44) Pneumonia Code(s): J18.9 - PNEUMONIA, UNSPECIFIED ORGANISM Qualifiers: (45) Presence of combination internal cardiac defibrillator (ICD) and pacemaker Code(s): Z95.810 - PRESENCE OF AUTOMATIC (IMPLANTABLE) CARDIAC DEFIBRILLATOR (46) Proteinuria Code(s): R80.9 - PROTEINURIA, UNSPECIFIED Qualifiers: (47) Renal insufficiency Code(s): N28.9 - DISORDER OF KIDNEY AND URETER, UNSPECIFIED (48) Sepsis Code(s): A41.9 - SEPSIS, UNSPECIFIED ORGANISM Qualifiers: (49) Status cardiac pacemaker Code(s): Z95.0 - PRESENCE OF CARDIAC PACEMAKER (50) Status post mitral valve annuloplasty Code(s): Z98.89 - OTHER SPECIFIED POSTPROCEDURAL STATES * DO NOT USE * (51) Thrombophlebitis Code(s): I80.9 - PHLEBITIS AND THROMBOPHLEBITIS OF UNSPECIFIED SITE (52) Transaminitis Code(s): R74.0 - NONSPEC ELEV OF LEVELS OF TRANSAMNS & LACTIC ACID DEHYDRGNSE Assessment/Plan Decompensated systolic chf 102 Fever ABX cri s/p bio AVR and MV repair [employer] AICD BIvi-pacing 2015 Dr. 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 2014 Plan; admit to tele ABX IV Lasix
[2018-09-10] MEDS: PARoxetine HCL 10 MG TABLET (FP) PO SCH (16:33)
[2018-09-10] MEDS: SPIRONOLACTONE 25 MG TABLET (FP) PO SCH (16:33)
[2018-09-10] MEDS: CARVEDILOL 3.125 MG TABLET (FP) PO SCH (16:33)
[2018-09-10] MEDS: CLOPIDOGREL BISULFATE 75 MG TABLET (FP) PO SCH (16:33)
--- NOTE | 2018-09-10 19:01 | HP ---
Admitting History and Physical - Primary Care Physician PCP: Hector Desai - Admission Chief Complaint: weakness, fever, aches History of Present Illness: ICD & pacer dep 83 y.o. M w/ PMHx. of HTN, CHF, LV dysf, CAD, carotid stenosis ( left ICA completely occluded), Gout, OA, Hypothyroidism and anxiety presents to the ER because of abrupt onset of high fever (102F), that developed late last PM preceded by achiness & chills. After the fever, he developed, nausea, body aches, weakness, rhinorrhea. Priior to this episode he's c/o gen'l fatigue and SMITH of insidious onset for the past several weeks. he was seen by his brake linings coater this past week who informed tianna martínez that he was "okay", and to resume the same set of meds he'd been taking. This was 1 day before this acute illness set in.Furthermore, he states that his lady friend (who lives in adult residence ) had also been ill with a similar presentation days before he took ill. He states that he is up to date with all his vaccines. Pt. denies any diarrhea or constipation, polyuria or dysuria, sore thraot, earaches, leg swelling,cold intolerance, productive cough or chest pain. 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 No: Aneurysm, Aortic Insufficiency, Aortic Stenosis, CAD, Deep Vein Thrombosis, [place], Mitral Insufficiency, Mitral Stenosis, Pulmonary Hypertension, Other Renal/: Yes: Renal Inusuff (CKD (stage 1)). No: Renal Failure, BPH, Cancer, Hematuria, Hemodialysis, Neurogenic Bladder, Renal Calculi, UTI, Other Heme/Onc: Yes: Other (MGUS) Psych: Yes: Anxiety, Other (affective dz) Musculoskeletal: Yes: Osteoarthritis Rheumatology: Yes: Gout. No: Fibromyalgia, Lupus, Rheumatoid Arthritis, Sarcoidosis, Vasculitis, Other Endocrine: Yes: Hypothyroidism, Other (Gluc intolerance) - Past Surgical History Past Surgical History: Yes: Permanent Pacemaker, Valve Replacement. No: None, AAA Repair, AICD, Amputation, Appendectomy, Arthrosocopy, AV Fistula/Graft, Bariatric Surgery, Breast Biopsy, Bypass, CABG, Carotid Endarterectomy, Cataract Removal, Cholecystectomy, Colectomy, Colonoscopy, Colostomy, Craniotomy , , Cystectomy, Hernia Repair, Hysterectomy, Ileal Conduit, Ileosotomy , Joint Replacement, Kidney Transplant, Laminectomy, Liver Transplant, Mastectomy, Nephrectomy, Oopherectomy, Orchiectomy, Prostatectomy, Splenectomy, Stent, Thoracotomy, TURP, Tonsillectomy, Tubal Ligation, Upper Endoscopy, Vasectomy, Vein Stripping/Ligation - Smoking History Smoking history: Never smoked Have you smoked in the past 12 months: No Aproximately how many cigarettes per day: 20 - Alcohol/Substance Use Hx Alcohol Use: No History of Substance Use: reports: None - Social History Usual Living Arrangement: Yes: Alone ADL: Independent 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, 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" History of Recent Travel: Yes (went to [place] 1 week ago) Home Medications - Allergies Allergies/Adverse Reactions: Allergies Allergy/AdvReac Type Severity Reaction Status Date / Time lisinopril Allergy Intermediate Cough Verified 09/10/18 06:00 Penicillins Allergy Intermediate Rash Verified 09/10/18 06:00 pravastatin sodium Allergy Intermediate MUSCLE PAIN Verified 09/10/18 06:00 [From Pravachol] simvastatin [From Zocor] Allergy Intermediate MUSCLE PAIN Verified 09/10/18 06: 00 sertraline Allergy Unknown Verified 09/10/18 06:00 - Home Medications Home Medications: Ambulatory Orders Allopurinol [Zyloprim -] 300 mg PO DAILY 12/19/15 Aspirin [ASA -] 81 mg PO DAILY 12/19/15 Clopidogrel Bisulfate [Plavix -] 75 mg PO DAILY 12/19/15 Levothyroxine [Synthroid -] 25 mcg PO DAILY 12/19/15 Paroxetine HCl [Paxil -] 10 mg PO DAILY 12/19/15 Rosuvastatin [Crestor -] 20 mg PO HS 12/19/15 Carvedilol [Coreg -] 3.125 mg PO HS #30 tablet 03/12/16 Spironolactone [Aldactone -] 25 mg PO DAILY #30 tablet 03/12/16 Furosemide [Lasix -] 40 mg PO DAILY 06/30/16 Colesevelam HCl [Welchol (Nf)] 625 mg PO DAILY 06/13/17 Family Disease History - Family Disease History Family Disease History: Diabetes: Mother, Heart Disease: Mother Review of Systems - Review of Systems Constitutional: reports: Chills, Diaphoresis, Fever, Lethargy, Malaise, Weakness Eyes: reports: No Symptoms HENT: reports: No Symptoms Neck: reports: No Symptoms Cardiovascular: reports: No Symptoms Respiratory: reports: SOB on Exertion Gastrointestinal: reports: No Symptoms Genitourinary: reports: No Symptoms Musculoskeletal: reports: Muscle Weakness Integumentary: reports: No Symptoms Neurological: reports: No Symptoms Endocrine: reports: No Symptoms Hematology/Lymphatic: reports: No Symptoms Psychiatric: reports: Anxiety Physical Examination Vital Signs: Vital Signs Temperature 97.4 F L 09/10/18 06:00 Pulse Rate 75 09/10/18 12:20 Respiratory Rate 18 09/10/18 12:20 Blood Pressure 102/66 09/10/18 12:20 O2 Sat by Pulse Oximetry (%) 99 09/10/18 12:20 Constitutional: Yes: Well Nourished, No Distress, Calm Eyes: Yes: Conjunctiva Clear, EOM Intact HENT: Yes: WNL Neck: Yes: WNL Cardiovascular: Yes: Regular Rate and Rhythm Respiratory: Yes: Regular, CTA Bilaterally Gastrointestinal: Yes: Normal Bowel Sounds, Soft ...Rectal Exam: Yes: Deferred Renal/: Yes: WNL Musculoskeletal: Yes: WNL Extremities: Yes: WNL Edema: No Peripheral Pulses WNL: No Peripheral Pulses: Left Doralis Pedis: 0 (no coldness, rubor, or ischemic changes), Right Dorsalis Pedis: 0 (same as above) Integumentary: Yes: WNL Neurological: Yes: WNL ...Motor Strength: WNL Psychiatric: Yes: WNL Labs: CBC, BMP 09/10/18 09:00 09/10/18 09:00 CBCD WBC 7.1 K/mm3 (4.0-10.0) 09/10/18 09:00 RBC 4.11 M/mm3 (4.00-5.60) 09/10/18 09:00 Hgb 13.2 GM/dL (11.7-16.9) 09/10/18 09:00 Hct 38.6 % (35.4-49) 09/10/18 09:00 MCV 93.8 fl (80-96) 09/10/18 09:00 MCHC 34.1 g/dl (32.0-35.9) 09/10/18 09:00 RDW 15.8 % (11.9-15.9) 09/10/18 09:00 Plt Count 128 K/MM3 (134-434) L 09/10/18 09:00 MPV 9.2 fl (7.5-11.1) 09/10/18 09:00 CMP Sodium 140 mmol/L (136-145) 09/10/18 09:00 Potassium 3.9 mmol/L (3.5-5.1) 09/10/18 09:00 Chloride 107 mmol/L (98-107) 09/10/18 09:00 Carbon Dioxide 25 mmol/L (21-32) 09/10/18 09:00 Anion Gap 8 MMOL/L (8-16) 09/10/18 09:00 BUN 38 mg/dL (7-18) H 09/10/18 09:00 Creatinine 2.0 mg/dL (0.55-1.3) H 09/10/18 09:00 Creat Clearance w eGFR 32.15 (>60) 09/10/18 09:00 Random Glucose 91 mg/dL (74-106) 09/10/18 09:00 Calcium 8.6 mg/dL (8.5-10.1) 09/10/18 09:00 Total Bilirubin 1.1 mg/dL (0.2-1) H 09/10/18 09:00 AST 24 U/L (15-37) 09/10/18 09:00 ALT 32 U/L (13-61) 09/10/18 09:00 Alkaline Phosphatase 91 U/L (45-117) 09/10/18 09:00 Total Protein 6.5 g/dl (6.4-8.2) 09/10/18 09:00 Albumin 3.4 g/dl (3.4-5.0) 09/10/18 09:00 CARDIAC ENZYMES Troponin I 0.11 ng/ml (0.00-0.05) H 09/10/18 17:00 Imaging - Results Chest X-ray: Report Reviewed Problem List - Problems (1) Fever and chills Assessment/Plan: of acute onset, associated with various constitutional Sx; but rapid FLU swab is negative; CXR without infiltrates, still likley 2nd some type of viral syndrome. PLAN: Supportive & Sympt Tx Code(s): R50.9 - FEVER, UNSPECIFIED (2) Hypertensive heart and chronic kidney disease with heart failure and stage 1 through stage 4 chronic kidney disease, or chronic kidney disease Assessment/Plan: CXR did reveal the presence of a "new" effusion, which could be the rerason for him having been dyspneic as he described suggesting some degree of volume overload. PLAN: IV LAsix; monitor chemistries, cont cardiac meds; check Cardiac enzymes. He is not a candidate for RADHA-I (2nd angioneurotic edema). Code(s): I13.0 - HYP HRT & CHR KDNY DIS W HRT FAIL AND STG 1-4/UNSP CHR KDNY; I50.9 - HEART FAILURE, UNSPECIFIED; N18.9 - CHRONIC KIDNEY DISEASE, UNSPECIFIED (3) Elevated troponin Assessment/Plan: could be 2nd to acute illness in the face of renal disease together with volume excessPLAN: serial enzymes Code(s): R74.8 - ABNORMAL LEVELS OF OTHER SERUM ENZYMES (4) Lipid disorder Assessment/Plan: supposed to be on statin; will check levels Code(s): E78.9 - DISORDER OF LIPOPROTEIN METABOLISM, UNSPECIFIED (5) Presence of combination internal cardiac defibrillator (ICD) and pacemaker Assessment/Plan: has not discharged; being followed by Cardiology Code(s): Z95.810 - PRESENCE OF AUTOMATIC (IMPLANTABLE) CARDIAC DEFIBRILLATOR (6) Gout Assessment/Plan: without gout; controlled with allopurinol; Check levels Code(s): M10.9 - GOUT, UNSPECIFIED Qualifiers: Gout etiology: unspecified cause Presence of tophus: without tophus (7) Angioneurotic edema Assessment/Plan: past episode 2nd RADHA-I; has been well since Code(s): T78.3XXA - ANGIONEUROTIC EDEMA, INITIAL ENCOUNTER Qualifiers: (8) Aortic valve replaced Assessment/Plan: stable; > 10 yrs ago Code(s): Z95.2 - PRESENCE OF PROSTHETIC HEART VALVE (9) Hypothyroid Assessment/Plan: euthyroid; check TSH Code(s): E03.9 - HYPOTHYROIDISM, UNSPECIFIED Qualifiers: Hypothyroidism type: acquired (10) Anxiety and depression Assessment/Plan: chronic; controlled with Paxil (ssri) Code(s): F41.9 - ANXIETY DISORDER, UNSPECIFIED; F32.9 - MAJOR DEPRESSIVE DISORDER, SINGLE EPISODE, UNSPECIFIED (11) PAD (peripheral artery disease) Assessment/Plan: chronic; stable w/o acute ischemia Code(s): I73.9 - PERIPHERAL VASCULAR DISEASE, UNSPECIFIED (12) Encounter for long-term use of antiplatelets/antithrombotics Assessment/Plan: has chronically been on ASA & Plavix, and has tolerated them well. To continue same Code(s): Z79.02 - ASSISTED (CURRENT) USE OF ANTITHROMBOTICS/ANTIPLATELETS Assessment/Plan 83 YOU M with mulitple c/o morbidities presenting with acute fever, and found to be in CHF with High BNP as well as high troponins, now will require aggressive diuresis ~~~~~~~~~~~~~~~~~~~~~~~~~~~~~~~~~ Dr Desai
--- NOTE | 2018-09-10 22:27 | EKG ---
Test Reason : Blood Pressure : / mmHG Vent. Rate : 076 BPM Atrial Rate : 441 BPM P-R Int : 000 ms QRS Dur : 182 ms QT Int : 502 ms P-R-T Axes : 000 120 -53 degrees QTc Int : 564 ms AV dual-paced rhythm with prolonged AV conduction WITH OCCASIONAL ventricular-paced complexes Biventricular pacemaker detected ABNORMAL ECG WHEN COMPARED WITH ECG OF 18-SEP-2017 21:26, NO SIGNIFICANT CHANGE WAS FOUND Confirmed by MARILYN OLVERA, JEAN ([id number]) on 09/10/2018 10:27:14 PM Referred By: Confirmed By:JEAN SANDERS MD
[2018-09-11] MEDS ORDERED: LEVOTHYROXINE NA 25 MCG TABLET (FP) ONE (05:37)
[2018-09-11] MEDS: LEVOTHYROXINE NA 75 MCG TABLET (FP) PO SCH (06:09)
[2018-09-11 06:43] LABS: ANION GAP 9 MMOL/L (8-16); BLOOD UREA NITROGEN 40 mg/dL (7-18); CALCIUM 8.6 mg/dL (8.5-10.1); CHLORIDE 108 mmol/L (98-107); CO2 24 mmol/L (21-32); CREATININE 2.2 mg/dL (0.55-1.3); GLUCOSE,RANDOM 86 mg/dL (74-106); POTASSIUM 3.9 mmol/L (3.5-5.1); SODIUM 142 mmol/L (136-145); URIC ACID 3.6 mg/dL (2.6-7.2)
[2018-09-11] MEDS ORDERED: CARVEDILOL 3.125 MG TABLET (FP) ONE (10:23)
[2018-09-11] MEDS ORDERED: ASPIRIN 81 MG CHEWABLE TABLETS ONE (10:23)
[2018-09-11] MEDS ORDERED: CLOPIDOGREL BISULFATE 75 MG TABLET (FP) ONE (10:23)
[2018-09-11] MEDS ORDERED: ALLOPURINOL 100 MG TABLET (FP) ONE (10:23)
[2018-09-11] MEDS ORDERED: PARoxetine HCL 10 MG TABLET (FP) ONE (10:23)
[2018-09-11] MEDS ORDERED: SPIRONOLACTONE 25 MG TABLET (FP) ONE (10:24)
[2018-09-11] MEDS: CARVEDILOL 3.125 MG TABLET (FP) PO SCH (10:24)
[2018-09-11] MEDS ORDERED: FUROSEMIDE 40 MG/4 ML INJECTABLE VIAL ONE (10:24)
[2018-09-11] MEDS: SPIRONOLACTONE 25 MG TABLET (FP) PO SCH (10:24)
[2018-09-11] MEDS: ASPIRIN COATED 81 MG TABLET.EC PO SCH (10:25)
[2018-09-11] MEDS: PARoxetine HCL 10 MG TABLET (FP) PO SCH (10:25)
[2018-09-11] MEDS: FUROSEMIDE 40 MG/4 ML INJECTABLE VIAL IVPUSH SCH (10:25)
[2018-09-11] MEDS: ALLOPURINOL 300 MG TABLET (FP) PO SCH (10:26)
[2018-09-11] MEDS: CLOPIDOGREL BISULFATE 75 MG TABLET (FP) PO SCH (10:26)
--- NOTE | 2018-09-11 14:54 | PN ---
Progress Note, Physician History of Present Illness: Pt. is an 83 y.o. M w/ PMHx. of HTN, CHF, HTN, CAD, PAD(left ICA completely occluded), Gout, OA, Hypothyroidism and anxiety presents to the ED with fever, nausea, body aches and pain, rhinorrhea and increased dyspnea on exertion. Pt. states that at home he has been feeling " under the weather" for the last couple weeks and as if "something was brewing," when last night he spiked a fever to 102. Pt. called his PCP: Dr. Desai, who said he should come in to the ED. Pt. took a Tylenol decided to come in this AM after he found he was short of breath with minimal activity. Pt. endorses generalized body aches, SMITH , nausea, fevers and chills. Pt. endorses a sick contact of his "lady friend." Pt. states that he is up to date with all his vaccines. Pt. denies any diarrhea or constipation, polyuria or dysuria, sexual activity, productive cough or chest pain. Pt. has had an echo within the last year and was not reported to have significant worsening of cardiac function from the prior echo in 2016. 09/10/18 08:05 CBC, CMP, Mag, BCx. CXR, EKG, Troponin and Flu swab ordered. 09/10/18 11:25 Negative Flu Troponins + @ 0.11 EKG looks similar to old EKG, dually paced Case discussed with Dr. Desai Call made to Dr. Kidd's service. PMH s/p bio AVR and MV repair [facility] Dr. Prasad Ongoing medical problems [employer] AICD BIvi-pacing 2015 Dr. 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 2014 - Current Medication List Current Medications: Active Medications Allopurinol (Zyloprim -) 300 mg PO DAILY [facility] Last Admin: 09/11/18 10:26 Dose: 300 mg Aspirin (Ecotrin -) 81 mg PO DAILY [facility] Last Admin: 09/11/18 10:25 Dose: 81 mg Carvedilol (Coreg -) 3.125 mg PO DAILY [facility] Last Admin: 09/11/18 10:24 Dose: 3.125 mg Clopidogrel Bisulfate (Plavix -) 75 mg PO DAILY [facility] Last Admin: 09/11/18 10:26 Dose: 75 mg Furosemide (Lasix Injection -) 40 mg IVPUSH DAILY [facility] Last Admin: 09/11/18 10:25 Dose: 40 mg Levothyroxine Sodium (Synthroid -) 75 mcg PO DAILY@0700 [facility] Last Admin: 09/11/18 06:09 Dose: 75 mcg Paroxetine HCl (Paxil -) 10 mg PO DAILY [facility] Last Admin: 09/11/18 10:25 Dose: 10 mg Spironolactone (Aldactone -) 25 mg PO DAILY [facility] Last Admin: 09/11/18 10:24 Dose: 25 mg - Objective Vital Signs: Vital Signs Temperature 98.1 F 09/11/18 09:45 Pulse Rate 77 09/11/18 12:21 Respiratory Rate 16 09/11/18 09:45 Blood Pressure 90/50 L 09/11/18 12:21 O2 Sat by Pulse Oximetry (%) 98 09/10/18 20:14 Eyes: Yes: WNL, Conjunctiva Clear, EOM Intact HENT: Yes: WNL, Atraumatic, Normocephalic Neck: Yes: WNL, Supple, Trachea Midline Cardiovascular: Yes: WNL, Regular Rate and Rhythm Respiratory: Yes: WNL, Regular, CTA Bilaterally Gastrointestinal: Yes: WNL, Normal Bowel Sounds Genitourinary: Yes: WNL Musculoskeletal: Yes: WNL Extremities: Yes: WNL Edema: No Integumentary: Yes: WNL Neurological: Yes: WNL, Alert, Oriented ...Motor Strength: WNL Psychiatric: Yes: WNL Labs: CBC, BMP 09/10/18 09:00 09/11/18 05:44 Problem List - Problems (1) CHF (congestive heart failure) Code(s): I50.9 - HEART FAILURE, UNSPECIFIED Qualifiers: Heart failure type: biventricular Qualified Code(s): I50.82 - Biventricular heart failure (2) AICD (automatic cardioverter/defibrillator) present Code(s): Z95.810 - PRESENCE OF AUTOMATIC (IMPLANTABLE) CARDIAC DEFIBRILLATOR (3) Acute exacerbation of CHF (congestive heart failure) Code(s): I50.9 - HEART FAILURE, UNSPECIFIED (4) Acute exacerbation of congestive heart failure Code(s): I50.9 - HEART FAILURE, UNSPECIFIED Qualifiers: (5) Acute on chronic combined systolic and diastolic CHF, NYHA class 3 Code(s): I50.43 - ACUTE ON CHRONIC COMBINED SYSTOLIC AND DIASTOLIC HRT FAIL (6) Acute on chronic renal failure Code(s): N17.9 - ACUTE KIDNEY FAILURE, UNSPECIFIED; N18.9 - CHRONIC KIDNEY DISEASE, UNSPECIFIED Qualifiers: (7) Acute on chronic systolic (congestive) heart failure Code(s): I50.23 - ACUTE ON CHRONIC SYSTOLIC (CONGESTIVE) HEART FAILURE (8) Acute on chronic systolic and diastolic heart failure, NYHA class 1 Code(s): I50.43 - ACUTE ON CHRONIC COMBINED SYSTOLIC AND DIASTOLIC HRT FAIL (9) Angioneurotic edema Code(s): T78.3XXA - ANGIONEUROTIC EDEMA, INITIAL ENCOUNTER Qualifiers: (10) Anxiety and depression Code(s): F41.9 - ANXIETY DISORDER, UNSPECIFIED; F32.9 - MAJOR DEPRESSIVE DISORDER, SINGLE EPISODE, UNSPECIFIED (11) Aortic stenosis Code(s): I35.0 - NONRHEUMATIC AORTIC (VALVE) STENOSIS (12) Aortic valve replaced Code(s): Z95.2 - PRESENCE OF PROSTHETIC HEART VALVE (13) Arm swelling Code(s): M79.89 - OTHER SPECIFIED SOFT TISSUE DISORDERS (14) Arteriosclerotic heart disease (ASHD) Code(s): I25.10 - ATHSCL HEART DISEASE OF [place] CORONARY ARTERY W/O ANG PCTRS (15) Artificial cardiac pacemaker Code(s): Z95.0 - PRESENCE OF CARDIAC PACEMAKER (16) Aspirin long-term use Code(s): Z79.82 - CASHIER ASSISTANT (CURRENT) USE OF ASPIRIN (17) CAD (coronary artery disease) Code(s): I25.10 - ATHSCL HEART DISEASE OF [place] CORONARY ARTERY W/O ANG PCTRS (18) Carotid artery disease Code(s): I77.9 - DISORDER OF ARTERIES AND ARTERIOLES, UNSPECIFIED (19) Carotid occlusion, left Code(s): I65.22 - OCCLUSION AND STENOSIS OF LEFT CAROTID ARTERY (20) Chronic renal insufficiency Code(s): N18.9 - CHRONIC KIDNEY DISEASE, UNSPECIFIED (21) DVT prophylaxis Code(s): [id number] - (22) Dehydration Code(s): E86.0 - DEHYDRATION (23) Dyspnea Code(s): R06.00 - DYSPNEA, UNSPECIFIED (24) Dysthymia (or depressive neurosis) Code(s): F34.1 - DYSTHYMIC DISORDER (25) Elevated troponin Code(s): R74.8 - ABNORMAL LEVELS OF OTHER SERUM ENZYMES (26) Epigastric abdominal pain Code(s): R10.13 - EPIGASTRIC PAIN (27) Fever Code(s): R50.9 - FEVER, UNSPECIFIED (28) Fluid collection (edema) in the arms, legs, hands and feet Code(s): R60.0 - LOCALIZED EDEMA (29) Gout Code(s): M10.9 - GOUT, UNSPECIFIED Qualifiers: Gout etiology: unspecified cause Presence of tophus: without tophus (30) Hyperlipidemia Code(s): E78.5 - HYPERLIPIDEMIA, UNSPECIFIED Qualifiers: (31) Hypertensive heart and chronic kidney disease with heart failure and stage 1 through stage 4 chronic kidney disease, or chronic kidney disease Code(s): I13.0 - HYP HRT & CHR KDNY DIS W HRT FAIL AND STG 1-4/UNSP CHR KDNY; I50.9 - HEART FAILURE, UNSPECIFIED; N18.9 - CHRONIC KIDNEY DISEASE, UNSPECIFIED (32) 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 Code(s): I13.10 - HYP HRT & CHR KDNY DIS W/O HRT FAIL, W STG 1-4/UNSP CHR KDNY (33) Hyperuricemia Code(s): E79.0 - HYPERURICEMIA W/O SIGNS OF INFLAM ARTHRIT AND TOPHACEOUS DIS (34) Hypomagnesemia Code(s): E83.42 - HYPOMAGNESEMIA (35) Hypothyroid Code(s): E03.9 - HYPOTHYROIDISM, UNSPECIFIED Qualifiers: Hypothyroidism type: acquired (36) Hypothyroid Code(s): E03.9 - HYPOTHYROIDISM, UNSPECIFIED Qualifiers: (37) ICD (implantable cardioverter-defibrillator) in place Code(s): Z95.810 - PRESENCE OF AUTOMATIC (IMPLANTABLE) CARDIAC DEFIBRILLATOR (38) Influenza A Code(s): J10.1 - FLU DUE TO OTH IDENT INFLUENZA VIRUS W OTH RESP MANIFEST (39) Leg swelling Code(s): M79.89 - OTHER SPECIFIED SOFT TISSUE DISORDERS (40) Lipid disorder Code(s): E78.9 - DISORDER OF LIPOPROTEIN METABOLISM, UNSPECIFIED (41) MGUS (monoclonal gammopathy of unknown significance) Code(s): D47.2 - MONOCLONAL GAMMOPATHY (42) Nosebleed Code(s): R04.0 - EPISTAXIS (43) PAD (peripheral artery disease) Code(s): I73.9 - PERIPHERAL VASCULAR DISEASE, UNSPECIFIED (44) Pneumonia Code(s): J18.9 - PNEUMONIA, UNSPECIFIED ORGANISM Qualifiers: (45) Presence of combination internal cardiac defibrillator (ICD) and pacemaker Code(s): Z95.810 - PRESENCE OF AUTOMATIC (IMPLANTABLE) CARDIAC DEFIBRILLATOR (46) Proteinuria Code(s): R80.9 - PROTEINURIA, UNSPECIFIED Qualifiers: (47) Renal insufficiency Code(s): N28.9 - DISORDER OF KIDNEY AND URETER, UNSPECIFIED (48) Sepsis Code(s): A41.9 - SEPSIS, UNSPECIFIED ORGANISM Qualifiers: (49) Status cardiac pacemaker Code(s): Z95.0 - PRESENCE OF CARDIAC PACEMAKER (50) Status post mitral valve annuloplasty Code(s): Z98.89 - OTHER SPECIFIED POSTPROCEDURAL STATES * DO NOT USE * (51) Thrombophlebitis Code(s): I80.9 - PHLEBITIS AND THROMBOPHLEBITIS OF UNSPECIFIED SITE (52) Transaminitis Code(s): R74.0 - NONSPEC ELEV OF LEVELS OF TRANSAMNS & LACTIC ACID DEHYDRGNSE Assessment/Plan Decompensated systolic chf 102 Fever ABX cri s/p bio AVR and MV repair [employer] AICD BIvi-pacing 2015 Dr. 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 2014 Plan; admit to tele ABX IV Lasix
--- NOTE | 2018-09-11 15:56 | PN ---
Progress Note (short form) - Note Progress Note: Current Medications Allopurinol (Zyloprim -) 300 mg PO DAILY [facility] Last Admin: 09/11/18 10:26 Dose: 300 mg Aspirin (Ecotrin -) 81 mg PO DAILY [facility] Last Admin: 09/11/18 10:25 Dose: 81 mg Carvedilol (Coreg -) 3.125 mg PO DAILY [facility] Last Admin: 09/11/18 10:24 Dose: 3.125 mg Clopidogrel Bisulfate (Plavix -) 75 mg PO DAILY [facility] Last Admin: 09/11/18 10:26 Dose: 75 mg Furosemide (Lasix Injection -) 40 mg IVPUSH DAILY [facility] Last Admin: 09/11/18 10:25 Dose: 40 mg Levothyroxine Sodium (Synthroid -) 75 mcg PO DAILY@0700 [facility] Last Admin: 09/11/18 06:09 Dose: 75 mcg Paroxetine HCl (Paxil -) 10 mg PO DAILY [facility] Last Admin: 09/11/18 10:25 Dose: 10 mg Spironolactone (Aldactone -) 25 mg PO DAILY [facility] Last Admin: 09/11/18 10:24 Dose: 25 mg Laboratory Results - last 24 hr 09/10/18 09/11/18 09/11/18 17:00 05:44 05:44 Sodium 142 Potassium 3.9 Chloride 108 H Carbon Dioxide 24 Anion Gap 9 BUN 40 H Creatinine 2.2 H Creat Clearance w eGFR 28.80 Random Glucose 86 Uric Acid 3.6 Calcium 8.6 Creatine Kinase 50 Troponin I 0.11 H 0.12 H Triglycerides 82 Cholesterol 111 Total LDL Cholesterol 66 HDL Cholesterol 34 L TSH 1.24 D Vital Signs Temperature 97.7 F 09/11/18 15:28 Pulse Rate 75 09/11/18 15:28 Respiratory Rate 16 09/11/18 09:45 Blood Pressure 97/57 L 09/11/18 15:28 O2 Sat by Pulse Oximetry (%) 98 09/10/18 20:14 CC: no CP; SOB, feels anxious ``````````````````````````` skin--NL color heart--RR abd--benign lungs--clear neuro--fully alert; coherent w/o focal deficits ```````````````````````` Summ > CHF--based on high BNP and presence of Pl effusion: PLAN: IV Lasix for now; follow chemisties; repeat CXR > Htn w/ ASHD and CRI--BP on low end; but seems to be tolerating it > elevated Trop--overall significance unclear in back drop of CRI and viral syndrome; follow trop daily > bacturia--as described; await c&s ~~~~~~~~~~~~~~~~~~~~~~~~ Dr Desai Problem List - Problems (1) Fever and chills Code(s): R50.9 - FEVER, UNSPECIFIED (2) Hypertensive heart and chronic kidney disease with heart failure and stage 1 through stage 4 chronic kidney disease, or chronic kidney disease Code(s): I13.0 - HYP HRT & CHR KDNY DIS W HRT FAIL AND STG 1-4/UNSP CHR KDNY; I50.9 - HEART FAILURE, UNSPECIFIED; N18.9 - CHRONIC KIDNEY DISEASE, UNSPECIFIED (3) Elevated troponin Code(s): R74.8 - ABNORMAL LEVELS OF OTHER SERUM ENZYMES (4) Lipid disorder Code(s): E78.9 - DISORDER OF LIPOPROTEIN METABOLISM, UNSPECIFIED (5) Presence of combination internal cardiac defibrillator (ICD) and pacemaker Code(s): Z95.810 - PRESENCE OF AUTOMATIC (IMPLANTABLE) CARDIAC DEFIBRILLATOR (6) Gout Code(s): M10.9 - GOUT, UNSPECIFIED Qualifiers: Gout etiology: unspecified cause Presence of tophus: without tophus (7) Angioneurotic edema Code(s): T78.3XXA - ANGIONEUROTIC EDEMA, INITIAL ENCOUNTER Qualifiers: (8) Aortic valve replaced Code(s): Z95.2 - PRESENCE OF PROSTHETIC HEART VALVE (9) Hypothyroid Code(s): E03.9 - HYPOTHYROIDISM, UNSPECIFIED Qualifiers: Hypothyroidism type: acquired (10) Anxiety and depression Code(s): F41.9 - ANXIETY DISORDER, UNSPECIFIED; F32.9 - MAJOR DEPRESSIVE DISORDER, SINGLE EPISODE, UNSPECIFIED (11) PAD (peripheral artery disease) Code(s): I73.9 - PERIPHERAL VASCULAR DISEASE, UNSPECIFIED (12) Encounter for long-term use of antiplatelets/antithrombotics Code(s): Z79.02 - 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
[2018-09-12] MEDS: LEVOTHYROXINE NA 75 MCG TABLET (FP) PO SCH (06:10)
[2018-09-12 06:49] LABS: ANION GAP 8 MMOL/L (8-16); BLOOD UREA NITROGEN 41 mg/dL (7-18); CALCIUM 9.2 mg/dL (8.5-10.1); CHLORIDE 106 mmol/L (98-107); CO2 27 mmol/L (21-32); CREATININE 2.3 mg/dL (0.55-1.3); GLUCOSE,RANDOM 87 mg/dL (74-106); POTASSIUM 4.4 mmol/L (3.5-5.1); SODIUM 141 mmol/L (136-145)
[2018-09-12] MEDS: ASPIRIN COATED 81 MG TABLET.EC PO SCH (09:10)
[2018-09-12] MEDS: CARVEDILOL 3.125 MG TABLET (FP) PO SCH (09:10)
[2018-09-12] MEDS: SPIRONOLACTONE 25 MG TABLET (FP) PO SCH (09:10)
[2018-09-12] MEDS: CLOPIDOGREL BISULFATE 75 MG TABLET (FP) PO SCH (09:10)
[2018-09-12] MEDS: FUROSEMIDE 40 MG/4 ML INJECTABLE VIAL IVPUSH SCH (09:10)
[2018-09-12] MEDS: ALLOPURINOL 300 MG TABLET (FP) PO SCH (09:10)
[2018-09-12] MEDS: PARoxetine HCL 10 MG TABLET (FP) PO SCH (09:10)
--- NOTE | 2018-09-12 15:03 | PN ---
Progress Note, Physician Chief Complaint: Pt A&Ox3; occasional cough; no chest pain except a sharp pain when he coughs. History of Present Illness: Pt. is an 83 y.o. white man w/ PMHx. of HTN, systolic (severely reduced LVEF)/ diastolic CHF, s/p cardiac valvae replacements, HTN, CAD (NSTEMI 08/2017), PAD( left ICA completely occluded), Gout, OA, TIA, Hypothyroidism, and anxiety, who presents to the ED with fever, nausea, body aches and pain, rhinorrhea and increased dyspnea on exertion. Pt. states that at home he has been feeling " under the weather" for the last couple weeks and as if "something was brewing," when last night he spiked a fever to 102. Pt. called his PCP: Dr. Desai, who said he should come in to the ED. Pt. took a Tylenol decided to come in this AM after he found he was short of breath with minimal activity. Pt. endorses generalized body aches, SMITH, nausea, fevers and chills. Pt. endorses a sick contact of his "lady friend." Pt. states that he is up to date with all his vaccines. Pt. denies any diarrhea or constipation, polyuria or dysuria, sexual activity, productive cough or chest pain. s/p bio AVR and MV repair [facility] Dr. Prasad Ongoing medical problems [employer] [facility] [employer] AICD BIvi-pacing 2015 Dr. 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 2014 - Current Medication List Current Medications: Active Medications Allopurinol (Zyloprim -) 300 mg PO DAILY [facility] Last Admin: 09/12/18 09:10 Dose: 300 mg Aspirin (Ecotrin -) 81 mg PO DAILY [facility] Last Admin: 09/12/18 09:10 Dose: 81 mg Carvedilol (Coreg -) 3.125 mg PO DAILY [facility] Last Admin: 09/12/18 09:10 Dose: 3.125 mg Clopidogrel Bisulfate (Plavix -) 75 mg PO DAILY [facility] Last Admin: 09/12/18 09:10 Dose: 75 mg Docusate Sodium (Colace -) 100 mg PO BID [facility] Furosemide (Lasix Injection -) 40 mg IVPUSH DAILY [facility] Last Admin: 09/12/18 09:10 Dose: 40 mg Levothyroxine Sodium (Synthroid -) 75 mcg PO DAILY@0700 [facility] Last Admin: 09/12/18 06:10 Dose: 75 mcg Paroxetine HCl (Paxil -) 10 mg PO DAILY [facility] Last Admin: 09/12/18 09:10 Dose: 10 mg Spironolactone (Aldactone -) 25 mg PO DAILY [facility] Last Admin: 09/12/18 09:10 Dose: 25 mg - Objective Vital Signs: Vital Signs Temperature 97.6 F 09/12/18 14:30 Pulse Rate 77 09/12/18 14:30 Respiratory Rate 20 09/12/18 14:30 Blood Pressure 102/60 09/12/18 14:30 O2 Sat by Pulse Oximetry (%) 95 09/12/18 09:00 Constitutional: Yes: Anxious Eyes: Yes: WNL HENT: Yes: WNL Neck: Yes: WNL Cardiovascular: Yes: Murmur, S1 (split), S2 (split) Respiratory: Yes: WNL Gastrointestinal: Yes: Soft ...Rectal Exam: Yes: Deferred Genitourinary: No: Anuria Breast(s): Yes: WNL Musculoskeletal: Yes: Muscle Weakness Extremities: Yes: Cool, Other (wears compression stockings ("all the time")) Edema: No Peripheral Pulses WNL: No Peripheral Pulses: Left Doralis Pedis: 1+, Right Dorsalis Pedis: 1+ Integumentary: Yes: WNL Neurological: Yes: Alert, Oriented, Weakness Psychiatric: Yes: Other (anxiety/depression) Labs: CBC, BMP 09/10/18 09:00 09/12/18 06:00 Abnormal Lab Results 09/12/18 06:00 BUN 41 H Creatinine 2.3 H Troponin I 0.13 H - ....Imaging Chest X-ray: Image Reviewed (no acute infiltrate/CHF) Problem List - Problems (1) Systolic and diastolic CHF w/reduced LV function, NYHA class 4 Assessment/Plan: On carvedillol; increase to bid as tolerated. Restart ACEI, spironolactone gradually. F/u BUN/Cr, electrolytes, daily weight, Is and Os. Code(s): I50.40 - UNSP COMBINED SYSTOLIC AND DIASTOLIC (CONGESTIVE) HRT FAIL (2) Fever and chills Assessment/Plan: afebrile since admission. Code(s): R50.9 - FEVER, UNSPECIFIED (3) AICD (automatic cardioverter/defibrillator) present Code(s): Z95.810 - PRESENCE OF AUTOMATIC (IMPLANTABLE) CARDIAC DEFIBRILLATOR (4) Anxiety and depression Code(s): F41.9 - ANXIETY DISORDER, UNSPECIFIED; F32.9 - MAJOR DEPRESSIVE DISORDER, SINGLE EPISODE, UNSPECIFIED (5) Aortic valve replaced Assessment/Plan: f/u ECHO Code(s): Z95.2 - PRESENCE OF PROSTHETIC HEART VALVE (6) CAD (coronary artery disease) Code(s): I25.10 - ATHSCL HEART DISEASE OF [place] CORONARY ARTERY W/O ANG PCTRS (7) Gout Code(s): M10.9 - GOUT, UNSPECIFIED Qualifiers: Gout etiology: unspecified cause Presence of tophus: without tophus (8) Hyperlipidemia Assessment/Plan: LDL cholesterol 66 mg/dL. Code(s): E78.5 - HYPERLIPIDEMIA, UNSPECIFIED Qualifiers: (9) Hypothyroid Assessment/Plan: on Synthroid. TSH WNL. Code(s): E03.9 - HYPOTHYROIDISM, UNSPECIFIED Qualifiers: Hypothyroidism type: acquired Qualified Code(s): E03.9 - Hypothyroidism, unspecified (10) Status post mitral valve annuloplasty Assessment/Plan: F/u ECHO for LVEF, chamber sizes, valve status. Code(s): Z98.89 - OTHER SPECIFIED POSTPROCEDURAL STATES * DO NOT USE * (11) Elevated troponin Assessment/Plan: Hx NSTEMI 08/2017 mild chronic elevation of TNI since at least 2015 EKG: AV paced rhythm Code(s): R74.8 - ABNORMAL LEVELS OF OTHER SERUM ENZYMES (12) Chronic renal failure Code(s): N18.9 - CHRONIC KIDNEY DISEASE, UNSPECIFIED
--- NOTE | 2018-09-12 15:47 | PN ---
Progress Note (short form) - Note Progress Note: Current Medications Allopurinol (Zyloprim -) 300 mg PO DAILY [facility] Last Admin: 09/12/18 09:10 Dose: 300 mg Aspirin (Ecotrin -) 81 mg PO DAILY [facility] Last Admin: 09/12/18 09:10 Dose: 81 mg Carvedilol (Coreg -) 3.125 mg PO DAILY [facility] Last Admin: 09/12/18 09:10 Dose: 3.125 mg Clopidogrel Bisulfate (Plavix -) 75 mg PO DAILY [facility] Last Admin: 09/12/18 09:10 Dose: 75 mg Docusate Sodium (Colace -) 100 mg PO BID [facility] Furosemide (Lasix Injection -) 40 mg IVPUSH DAILY [facility] Last Admin: 09/12/18 09:10 Dose: 40 mg Levothyroxine Sodium (Synthroid -) 75 mcg PO DAILY@0700 [facility] Last Admin: 09/12/18 06:10 Dose: 75 mcg Paroxetine HCl (Paxil -) 10 mg PO DAILY [facility] Last Admin: 09/12/18 09:10 Dose: 10 mg Spironolactone (Aldactone -) 25 mg PO DAILY [facility] Last Admin: 09/12/18 09:10 Dose: 25 mg Laboratory Results - last 24 hr 09/12/18 06:00 Sodium 141 Potassium 4.4 Chloride 106 Carbon Dioxide 27 Anion Gap 8 BUN 41 H Creatinine 2.3 H Creat Clearance w eGFR 27.36 Random Glucose 87 Calcium 9.2 Creatine Kinase 49 Troponin I 0.13 H Vital Signs Temperature 97.6 F 09/12/18 14:30 Pulse Rate 77 09/12/18 14:30 Respiratory Rate 20 09/12/18 14:30 Blood Pressure 102/60 09/12/18 14:30 O2 Sat by Pulse Oximetry (%) 95 09/12/18 09:00 CC: feels [place] as this afternoon; has had to "lie down" ``````````````````````````` skin--NL color heart--RR abd--benign lungs--clear ext--no edema; IV site clear neuro--fully alert; coherent w/o focal deficits ```````````````````````` Summ > weakness--could be 2nd diuretic effects on Vaascular system & BP; also effect of SSRI plan: Hold IV Lasix/aldactone > CHF--acute diastolic CHF; based on high BNP and presence of Pl effusion; repeat CXR shows no failure of effusion > Htn w/ ASHD and CRI--BP on low end; but seems to be tolerating it > elevated Trop--overall significance unclear in back drop of CRI and viral syndrome; now trending upward, will check daily > bacturia--as described; no dysuria; has sensitive E Coli; will repeat urine culture ~~~~~~~~~~~~~~~~~~~~~~~~ Dr Desai Problem List - Problems (1) Fever and chills Code(s): R50.9 - FEVER, UNSPECIFIED (2) Hypertensive heart and chronic kidney disease with heart failure and stage 1 through stage 4 chronic kidney disease, or chronic kidney disease Code(s): I13.0 - HYP HRT & CHR KDNY DIS W HRT FAIL AND STG 1-4/UNSP CHR KDNY; I50.9 - HEART FAILURE, UNSPECIFIED; N18.9 - CHRONIC KIDNEY DISEASE, UNSPECIFIED (3) Elevated troponin Code(s): R74.8 - ABNORMAL LEVELS OF OTHER SERUM ENZYMES (4) Lipid disorder Code(s): E78.9 - DISORDER OF LIPOPROTEIN METABOLISM, UNSPECIFIED (5) Presence of combination internal cardiac defibrillator (ICD) and pacemaker Code(s): Z95.810 - PRESENCE OF AUTOMATIC (IMPLANTABLE) CARDIAC DEFIBRILLATOR (6) Gout Code(s): M10.9 - GOUT, UNSPECIFIED Qualifiers: Gout etiology: unspecified cause Presence of tophus: without tophus (7) Angioneurotic edema Code(s): T78.3XXA - ANGIONEUROTIC EDEMA, INITIAL ENCOUNTER Qualifiers: (8) Aortic valve replaced Code(s): Z95.2 - PRESENCE OF PROSTHETIC HEART VALVE (9) Hypothyroid Code(s): E03.9 - HYPOTHYROIDISM, UNSPECIFIED Qualifiers: Hypothyroidism type: acquired (10) Anxiety and depression Code(s): F41.9 - ANXIETY DISORDER, UNSPECIFIED; F32.9 - MAJOR DEPRESSIVE DISORDER, SINGLE EPISODE, UNSPECIFIED (11) PAD (peripheral artery disease) Code(s): I73.9 - PERIPHERAL VASCULAR DISEASE, UNSPECIFIED (12) Encounter for long-term use of antiplatelets/antithrombotics Code(s): Z79.02 - FDC (CURRENT) USE OF ANTITHROMBOTICS/ANTIPLATELETS
[2018-09-12] MEDS: DOCUSATE SODIUM 100 MG CAPSULE (FP) PO SCH (21:09)
[2018-09-13] MEDS: LEVOTHYROXINE NA 75 MCG TABLET (FP) PO SCH (06:31)
[2018-09-13 06:43] LABS: HEMATOCRIT 39.2 % (35.4-49); MCH 31.5 pg (25.7-33.7); MCHC 33.1 g/dl (32.0-35.9); MEAN CELL VOLUME 95.3 fl (80-96); MEAN PLT VOLUME 8.8 fl (7.5-11.1); PLATELET COUNT 137 K/MM3 (134-434); RBC 4.11 M/mm3 (4.00-5.60); RDW 15.8 % (11.9-15.9); WHITE BLOOD COUNT 6.5 K/mm3 (4.0-10.0)
[2018-09-13 07:05] LABS: ANION GAP 6 MMOL/L (8-16); BLOOD UREA NITROGEN 48 mg/dL (7-18); CALCIUM 8.8 mg/dL (8.5-10.1); CHLORIDE 107 mmol/L (98-107); CO2 25 mmol/L (21-32); CREATININE 2.2 mg/dL (0.55-1.3); GLUCOSE,RANDOM 92 mg/dL (74-106); POTASSIUM 4.4 mmol/L (3.5-5.1); SODIUM 138 mmol/L (136-145)
--- NOTE | 2018-09-13 10:45 | PN ---
Progress Note, Physician History of Present Illness: Pt. is an 83 y.o. M w/ PMHx. of HTN, CHF, HTN, CAD, PAD(left ICA completely occluded), Gout, OA, Hypothyroidism and anxiety presents to the ED with fever, nausea, body aches and pain, rhinorrhea and increased dyspnea on exertion. Pt. states that at home he has been feeling " under the weather" for the last couple weeks and as if "something was brewing," when last night he spiked a fever to 102. Pt. called his PCP: Dr. Desai, who said he should come in to the ED. Pt. took a Tylenol decided to come in this AM after he found he was short of breath with minimal activity. Pt. endorses generalized body aches, SMITH , nausea, fevers and chills. Pt. endorses a sick contact of his "lady friend." Pt. states that he is up to date with all his vaccines. Pt. denies any diarrhea or constipation, polyuria or dysuria, sexual activity, productive cough or chest pain. Pt. has had an echo within the last year and was not reported to have significant worsening of cardiac function from the prior echo in 2016. 09/10/18 08:05 CBC, CMP, Mag, BCx. CXR, EKG, Troponin and Flu swab ordered. 09/10/18 11:25 Negative Flu Troponins + @ 0.11 EKG looks similar to old EKG, dually paced Case discussed with Dr. Desai Call made to Dr. Kidd's service. PMH s/p bio AVR and MV repair [facility] Dr. Prasad Ongoing medical problems [employer] AICD BIvi-pacing 2015 Dr. 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 2014 - Current Medication List Current Medications: Active Medications Allopurinol (Zyloprim -) 300 mg PO DAILY [facility] Last Admin: 09/12/18 09:10 Dose: 300 mg Aspirin (Ecotrin -) 81 mg PO DAILY [facility] Last Admin: 09/12/18 09:10 Dose: 81 mg Carvedilol (Coreg -) 3.125 mg PO DAILY [facility] Last Admin: 09/12/18 09:10 Dose: 3.125 mg Clopidogrel Bisulfate (Plavix -) 75 mg PO DAILY [facility] Last Admin: 09/12/18 09:10 Dose: 75 mg Docusate Sodium (Colace -) 100 mg PO BID [facility] Last Admin: 09/12/18 21:09 Dose: 100 mg Levothyroxine Sodium (Synthroid -) 75 mcg PO DAILY@0700 [facility] Last Admin: 09/13/18 06:31 Dose: 75 mcg - Objective Vital Signs: Vital Signs Temperature 97.8 F 09/13/18 06:00 Pulse Rate 75 09/13/18 06:00 Respiratory Rate 20 09/13/18 06:00 Blood Pressure 89/56 L 09/13/18 06:00 O2 Sat by Pulse Oximetry (%) 93 L 09/12/18 20:39 Eyes: Yes: WNL, Conjunctiva Clear, EOM Intact HENT: Yes: WNL, Atraumatic, Normocephalic Neck: Yes: WNL, Supple, Trachea Midline Cardiovascular: Yes: WNL, Regular Rate and Rhythm Respiratory: Yes: WNL, Regular, CTA Bilaterally Gastrointestinal: Yes: WNL, Normal Bowel Sounds Genitourinary: Yes: WNL Musculoskeletal: Yes: WNL Extremities: Yes: WNL Edema: No Integumentary: Yes: WNL Neurological: Yes: WNL, Alert, Oriented ...Motor Strength: WNL Psychiatric: Yes: WNL Labs: CBC, BMP 09/13/18 06:00 09/13/18 06:00 Problem List - Problems (1) CHF (congestive heart failure) Code(s): I50.9 - HEART FAILURE, UNSPECIFIED Qualifiers: Heart failure type: biventricular Qualified Code(s): I50.82 - Biventricular heart failure (2) AICD (automatic cardioverter/defibrillator) present Code(s): Z95.810 - PRESENCE OF AUTOMATIC (IMPLANTABLE) CARDIAC DEFIBRILLATOR (3) Acute exacerbation of CHF (congestive heart failure) Code(s): I50.9 - HEART FAILURE, UNSPECIFIED (4) Acute exacerbation of congestive heart failure Code(s): I50.9 - HEART FAILURE, UNSPECIFIED Qualifiers: (5) Acute on chronic combined systolic and diastolic CHF, NYHA class 3 Code(s): I50.43 - ACUTE ON CHRONIC COMBINED SYSTOLIC AND DIASTOLIC HRT FAIL (6) Acute on chronic renal failure Code(s): N17.9 - ACUTE KIDNEY FAILURE, UNSPECIFIED; N18.9 - CHRONIC KIDNEY DISEASE, UNSPECIFIED Qualifiers: (7) Acute on chronic systolic (congestive) heart failure Code(s): I50.23 - ACUTE ON CHRONIC SYSTOLIC (CONGESTIVE) HEART FAILURE (8) Acute on chronic systolic and diastolic heart failure, NYHA class 1 Code(s): I50.43 - ACUTE ON CHRONIC COMBINED SYSTOLIC AND DIASTOLIC HRT FAIL (9) Angioneurotic edema Code(s): T78.3XXA - ANGIONEUROTIC EDEMA, INITIAL ENCOUNTER Qualifiers: (10) Anxiety and depression Code(s): F41.9 - ANXIETY DISORDER, UNSPECIFIED; F32.9 - MAJOR DEPRESSIVE DISORDER, SINGLE EPISODE, UNSPECIFIED (11) Aortic stenosis Code(s): I35.0 - NONRHEUMATIC AORTIC (VALVE) STENOSIS (12) Aortic valve replaced Code(s): Z95.2 - PRESENCE OF PROSTHETIC HEART VALVE (13) Arm swelling Code(s): M79.89 - OTHER SPECIFIED SOFT TISSUE DISORDERS (14) Arteriosclerotic heart disease (ASHD) Code(s): I25.10 - ATHSCL HEART DISEASE OF [place] CORONARY ARTERY W/O ANG PCTRS (15) Artificial cardiac pacemaker Code(s): Z95.0 - PRESENCE OF CARDIAC PACEMAKER (16) Aspirin long-term use Code(s): Z79.82 - SALES 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 RESIDENTIAL 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 (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) USE OF ASPIRIN (17) CAD (coronary artery disease) Code(s): I25.10 - ATHSCL HEART DISEASE OF [place] CORONARY ARTERY W/O ANG PCTRS (18) Carotid artery disease Code(s): I77.9 - DISORDER OF ARTERIES AND ARTERIOLES, UNSPECIFIED (19) Carotid occlusion, left Code(s): I65.22 - OCCLUSION AND STENOSIS OF LEFT CAROTID ARTERY (20) Chronic renal insufficiency Code(s): N18.9 - CHRONIC KIDNEY DISEASE, UNSPECIFIED (21) DVT prophylaxis Code(s): [id number] - (22) Dehydration Code(s): E86.0 - DEHYDRATION (23) Dyspnea Code(s): R06.00 - DYSPNEA, UNSPECIFIED (24) Dysthymia (or depressive neurosis) Code(s): F34.1 - DYSTHYMIC DISORDER (25) Elevated troponin Code(s): R74.8 - ABNORMAL LEVELS OF OTHER SERUM ENZYMES (26) Epigastric abdominal pain Code(s): R10.13 - EPIGASTRIC PAIN (27) Fever Code(s): R50.9 - FEVER, UNSPECIFIED (28) Fluid collection (edema) in the arms, legs, hands and feet Code(s): R60.0 - LOCALIZED EDEMA (29) Gout Code(s): M10.9 - GOUT, UNSPECIFIED Qualifiers: Gout etiology: unspecified cause Presence of tophus: without tophus (30) Hyperlipidemia Code(s): E78.5 - HYPERLIPIDEMIA, UNSPECIFIED Qualifiers: (31) Hypertensive heart and chronic kidney disease with heart failure and stage 1 through stage 4 chronic kidney disease, or chronic kidney disease Code(s): I13.0 - HYP HRT & CHR KDNY DIS W HRT FAIL AND STG 1-4/UNSP CHR KDNY; I50.9 - HEART FAILURE, UNSPECIFIED; N18.9 - CHRONIC KIDNEY DISEASE, UNSPECIFIED (32) 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 Code(s): I13.10 - HYP HRT & CHR KDNY DIS W/O HRT FAIL, W STG 1-4/UNSP CHR KDNY (33) Hyperuricemia Code(s): E79.0 - HYPERURICEMIA W/O SIGNS OF INFLAM ARTHRIT AND TOPHACEOUS DIS (34) Hypomagnesemia Code(s): E83.42 - HYPOMAGNESEMIA (35) Hypothyroid Code(s): E03.9 - HYPOTHYROIDISM, UNSPECIFIED Qualifiers: Hypothyroidism type: acquired Qualified Code(s): E03.9 - Hypothyroidism, unspecified (36) Hypothyroid Code(s): E03.9 - HYPOTHYROIDISM, UNSPECIFIED Qualifiers: (37) ICD (implantable cardioverter-defibrillator) in place Code(s): Z95.810 - PRESENCE OF AUTOMATIC (IMPLANTABLE) CARDIAC DEFIBRILLATOR (38) Influenza A Code(s): J10.1 - FLU DUE TO OTH IDENT INFLUENZA VIRUS W OTH RESP MANIFEST (39) Leg swelling Code(s): M79.89 - OTHER SPECIFIED SOFT TISSUE DISORDERS (40) Lipid disorder Code(s): E78.9 - DISORDER OF LIPOPROTEIN METABOLISM, UNSPECIFIED (41) MGUS (monoclonal gammopathy of unknown significance) Code(s): D47.2 - MONOCLONAL GAMMOPATHY (42) Nosebleed Code(s): R04.0 - EPISTAXIS (43) PAD (peripheral artery disease) Code(s): I73.9 - PERIPHERAL VASCULAR DISEASE, UNSPECIFIED (44) Pneumonia Code(s): J18.9 - PNEUMONIA, UNSPECIFIED ORGANISM Qualifiers: (45) Presence of combination internal cardiac defibrillator (ICD) and pacemaker Code(s): Z95.810 - PRESENCE OF AUTOMATIC (IMPLANTABLE) CARDIAC DEFIBRILLATOR (46) Proteinuria Code(s): R80.9 - PROTEINURIA, UNSPECIFIED Qualifiers: (47) Renal insufficiency Code(s): N28.9 - DISORDER OF KIDNEY AND URETER, UNSPECIFIED (48) Sepsis Code(s): A41.9 - SEPSIS, UNSPECIFIED ORGANISM Qualifiers: (49) Status cardiac pacemaker Code(s): Z95.0 - PRESENCE OF CARDIAC PACEMAKER (50) Status post mitral valve annuloplasty Code(s): Z98.89 - OTHER SPECIFIED POSTPROCEDURAL STATES * DO NOT USE * (51) Thrombophlebitis Code(s): I80.9 - PHLEBITIS AND THROMBOPHLEBITIS OF UNSPECIFIED SITE (52) Transaminitis Code(s): R74.0 - NONSPEC ELEV OF LEVELS OF TRANSAMNS & LACTIC ACID DEHYDRGNSE Assessment/Plan - Problems (1) Systolic and diastolic CHF w/reduced LV function, NYHA class 4 Assessment/Plan: On carvedillol; increase to bid as tolerated. Restart ACEI, spironolactone gradually. F/u BUN/Cr, electrolytes, daily weight, Is and Os. Agree with holding Lasix due to worsening BUN/Cr Code(s): I50.40 - UNSP COMBINED SYSTOLIC AND DIASTOLIC (CONGESTIVE) HRT FAIL (2) Fever and chills Assessment/Plan: afebrile since admission. Code(s): R50.9 - FEVER, UNSPECIFIED (3) AICD (automatic cardioverter/defibrillator) present Code(s): Z95.810 - PRESENCE OF AUTOMATIC (IMPLANTABLE) CARDIAC DEFIBRILLATOR (4) Anxiety and depression Code(s): F41.9 - ANXIETY DISORDER, UNSPECIFIED; F32.9 - MAJOR DEPRESSIVE DISORDER, SINGLE EPISODE, UNSPECIFIED (5) Aortic valve replaced Assessment/Plan: f/u ECHO Code(s): Z95.2 - PRESENCE OF PROSTHETIC HEART VALVE (6) CAD (coronary artery disease) Code(s): I25.10 - ATHSCL HEART DISEASE OF [place] CORONARY ARTERY W/O ANG PCTRS (7) Gout Code(s): M10.9 - GOUT, UNSPECIFIED Qualifiers: Gout etiology: unspecified cause Presence of tophus: without tophus (8) Hyperlipidemia Assessment/Plan: LDL cholesterol 66 mg/dL. Code(s): E78.5 - HYPERLIPIDEMIA, UNSPECIFIED Qualifiers: (9) Hypothyroid Assessment/Plan: on Synthroid. TSH WNL. Code(s): E03.9 - HYPOTHYROIDISM, UNSPECIFIED Qualifiers: Hypothyroidism type: acquired Qualified Code(s): E03.9 - Hypothyroidism, unspecified (10) Status post mitral valve annuloplasty Assessment/Plan: F/u ECHO for LVEF, chamber sizes, valve status. Code(s): Z98.89 - OTHER SPECIFIED POSTPROCEDURAL STATES * DO NOT USE * (11) Elevated troponin Assessment/Plan: Hx NSTEMI 08/2017 mild chronic elevation of TNI since at least 2015 EKG: AV paced rhythm Code(s): R74.8 - ABNORMAL LEVELS OF OTHER SERUM ENZYMES (12) Chronic renal failure Code(s): N18.9 - CHRONIC KIDNEY DISEASE, UNSPECIFIED
[2018-09-13] MEDS: ASPIRIN COATED 81 MG TABLET.EC PO SCH (10:51)
[2018-09-13] MEDS: CARVEDILOL 3.125 MG TABLET (FP) PO SCH (10:51)
[2018-09-13] MEDS: ALLOPURINOL 300 MG TABLET (FP) PO SCH (10:51)
[2018-09-13] MEDS: CLOPIDOGREL BISULFATE 75 MG TABLET (FP) PO SCH (10:51)
[2018-09-13] MEDS: DOCUSATE SODIUM 100 MG CAPSULE (FP) PO SCH ×3 (10:51→21:14)
--- NOTE | 2018-09-13 12:45 | ECHO ---
Name: UTE MISHRA Exam:Adult Echocardiogram Study Date: 09/13/2018 07:55 AM Age: 83 yrs Reason For Study: SOB Height: 70 in Weight: 186 lb BSA: 2.0 m2 MMode/2D Measurements & Calculations IVSd: 1.2 cm Ao root diam: 3.0 cm LVIDd: 6.8 cm LA dimension: 5.3 cm LVIDs: 6.4 cm LVPWd: 1.1 cm EDV(Teich): 240.8 ml LVOT diam: 2.0 cm ESV(Teich): 208.3 ml LAV (MOD-bp): 190.0 ml Doppler Measurements & Calculations MV E max julio: 127.0 cm/sec Ao V2 max: 282.3 cm/sec MV A max julio: 63.0 cm/sec Ao max P.9 mmHg MV E/A: 2.0 Ao V2 mean: 194.2 cm/sec MV dec time: 0.11 sec Ao mean P.2 mmHg Ao V2 VTI: 61.5 cm HARRY(I,D): 0.62 cm2 AI P1/2t: 341.0 msec HARRY(V,D): 0.62 cm2 AI max julio: 314.2 cm/sec LV V1 max P.2 mmHg AI max P.5 mmHg LV V1 mean P.63 mmHg AI dec slope: 269.9 cm/sec2 LV V1 max: 54.1 cm/sec LV V1 mean: 36.2 cm/sec LV V1 VTI: 11.7 cm MR max julio: 401.6 cm/sec SV(LVOT): 37.9 ml MR max P.1 mmHg TR max julio: 288.6 cm/sec Med Peak E' Julio: 4.6 cm/sec TR max P.5 mmHg Med E/e': 27.8 Lat Peak E' Julio: 5.2 cm/sec Lat E/e': 24.3 PI Vmax: 130.3 cm/sec Procedure A two-dimensional transthoracic echocardiogram with color flow and Doppler was performed. Left Ventricle The left ventricle is moderately dilated. Left ventricular systolic function is severely reduced. The re is severe global hypokinesis of the left ventricle. Right Ventricle The right ventricle is normal in size and function. There is a pacemaker lead in the right ventricle. Atria The left atrium is severely dilated. The right atrium is severely dilated. Mitral Valve The posterior mitral leaflet is thickened and fixed consistent with prior mitral repair surgery. Ther e is no mitral valve stenosis. There is moderate mitral regurgitation. Tricuspid Valve There is moderate tricuspid valve thickening. There is no tricuspid stenosis. There is moderate to se benjamin tricuspid regurgitation. Right ventricular systolic pressure is elevated at 40-50mmHg. Aortic Valve There is a bioprosthetic aortic valve. The prosthetic aortic valve is well-seated. Hemodynamically si gnificant valvular aortic stenosis cannot be excluded. Mild aortic regurgitation. Pulmonic Valve The pulmonic valve is not well visualized. There is no pulmonic valvular stenosis. Trace pulmonic pawan vular regurgitation. Great Vessels The aortic root is normal size. Pericardium/Pleura There is no pericardial effusion. Interpretation Summary The left ventricle is moderately dilated. Left ventricular systolic function is severely reduced. There is severe global hypokinesis of the left ventricle. The left atrium is severely dilated. The right atrium is severely dilated. The posterior mitral leaflet is thickened and fixed consistent with prior mitral repair surgery. There is moderate to severe tricuspid regurgitation. Right ventricular systolic pressure is elevated at 40-50mmHg. There is a bioprosthetic aortic valve. The prosthetic aortic valve is well-seated. There is a pacemaker lead in the right ventricle. Mild aortic regurgitation. Hemodynamically significant valvular aortic stenosis cannot be excluded. There is moderate mitral regurgitation. MD Ezequiel Kidd 09/13/2018 12:44 PM
--- NOTE | 2018-09-13 16:07 | PN ---
Progress Note (short form) - Note Progress Note: Current Medications Allopurinol (Zyloprim -) 300 mg PO DAILY [facility] Last Admin: 09/13/18 10:51 Dose: 300 mg Aspirin (Ecotrin -) 81 mg PO DAILY [facility] Last Admin: 09/13/18 10:51 Dose: 81 mg Carvedilol (Coreg -) 3.125 mg PO DAILY [facility] Last Admin: 09/13/18 10:51 Dose: Not Given Clopidogrel Bisulfate (Plavix -) 75 mg PO DAILY [facility] Last Admin: 09/13/18 10:51 Dose: 75 mg Docusate Sodium (Colace -) 100 mg PO BID [facility] Last Admin: 09/13/18 11:03 Dose: Not Given Levothyroxine Sodium (Synthroid -) 75 mcg PO DAILY@0700 [facility] Last Admin: 09/13/18 06:31 Dose: 75 mcg Laboratory Results - last 24 hr 09/13/18 09/13/18 06:00 06:00 WBC 6.5 RBC 4.11 Hgb 13.0 Hct 39.2 MCV 95.3 MCH 31.5 MCHC 33.1 RDW 15.8 Plt Count 137 MPV 8.8 Sodium 138 Potassium 4.4 Chloride 107 Carbon Dioxide 25 Anion Gap 6 L BUN 48 H Creatinine 2.2 H Creat Clearance w eGFR 28.80 Random Glucose 92 Calcium 8.8 Creatine Kinase 46 Troponin I 0.10 H Vital Signs Temperature 97.7 F 09/13/18 14:00 Pulse Rate 77 09/13/18 14:00 Respiratory Rate 18 09/13/18 14:00 Blood Pressure 87/56 L 09/13/18 14:00 O2 Sat by Pulse Oximetry (%) 99 09/13/18 10:00 CC: feels a bit better but lightheaded when standing & walking ``````````````````````````` skin--NL color heart--RR abd--benign lungs--clear ext--no edema; IV site clear neuro--fully alert; coherent w/o focal deficits; gait a bit wobbly ```````````````````````` Summ > hypotension--iatrogenic? all diuretics on hold; diet liberalized > CHF--acute diastolic CHF; based on high BNP and presence of Pl effusion; await echo report > Htn w/ ASHD and CRI--BP low and displays orthostatic Sx; would not give IV hydration considering low EjFx and the ease to which he can be thrown into heart failure: PLAN: advised to increase PO fluid intake > elevated Trop--overall significance unclear in back drop of CRI and viral syndrome; now trending down, will check daily > bacturia--with NL Ua; no dysuria; has sensitive E Coli; will repeat urine culture ~~~~~~~~~~~~~~~~~~~~~~~~ Dr Desai Problem List - Problems (1) Fever and chills Code(s): R50.9 - FEVER, UNSPECIFIED (2) Hypertensive heart and chronic kidney disease with heart failure and stage 1 through stage 4 chronic kidney disease, or chronic kidney disease Code(s): I13.0 - HYP HRT & CHR KDNY DIS W HRT FAIL AND STG 1-4/UNSP CHR KDNY; I50.9 - HEART FAILURE, UNSPECIFIED; N18.9 - CHRONIC KIDNEY DISEASE, UNSPECIFIED (3) Elevated troponin Code(s): R74.8 - ABNORMAL LEVELS OF OTHER SERUM ENZYMES (4) Lipid disorder Code(s): E78.9 - DISORDER OF LIPOPROTEIN METABOLISM, UNSPECIFIED (5) Presence of combination internal cardiac defibrillator (ICD) and pacemaker Code(s): Z95.810 - PRESENCE OF AUTOMATIC (IMPLANTABLE) CARDIAC DEFIBRILLATOR (6) Gout Code(s): M10.9 - GOUT, UNSPECIFIED Qualifiers: Gout etiology: unspecified cause Presence of tophus: without tophus (7) Angioneurotic edema Code(s): T78.3XXA - ANGIONEUROTIC EDEMA, INITIAL ENCOUNTER Qualifiers: (8) Aortic valve replaced Code(s): Z95.2 - PRESENCE OF PROSTHETIC HEART VALVE (9) Hypothyroid Code(s): E03.9 - HYPOTHYROIDISM, UNSPECIFIED Qualifiers: Hypothyroidism type: acquired Qualified Code(s): E03.9 - Hypothyroidism, unspecified (10) Anxiety and depression Code(s): F41.9 - ANXIETY DISORDER, UNSPECIFIED; F32.9 - MAJOR DEPRESSIVE DISORDER, SINGLE EPISODE, UNSPECIFIED (11) PAD (peripheral artery disease) Code(s): I73.9 - PERIPHERAL VASCULAR DISEASE, UNSPECIFIED (12) Encounter for long-term use of antiplatelets/antithrombotics Code(s): Z79.02 - AIRLINE MANAGERIAL SUPERVISOR (CURRENT) USE OF ANTITHROMBOTICS/ANTIPLATELETS
[2018-09-14] MEDS: LEVOTHYROXINE NA 75 MCG TABLET (FP) PO SCH (06:15)
[2018-09-14 07:50] LABS: ANION GAP 9 MMOL/L (8-16); BLOOD UREA NITROGEN 47 mg/dL (7-18); CALCIUM 8.6 mg/dL (8.5-10.1); CHLORIDE 106 mmol/L (98-107); CO2 23 mmol/L (21-32); CREATININE 1.9 mg/dL (0.55-1.3); GLUCOSE,RANDOM 89 mg/dL (74-106); POTASSIUM 4.5 mmol/L (3.5-5.1); SODIUM 138 mmol/L (136-145)
[2018-09-14] MEDS: CLOPIDOGREL BISULFATE 75 MG TABLET (FP) PO SCH (09:48)
[2018-09-14] MEDS: DOCUSATE SODIUM 100 MG CAPSULE (FP) PO SCH ×2 (09:48→21:29)
[2018-09-14] MEDS: ASPIRIN COATED 81 MG TABLET.EC PO SCH (09:49)
[2018-09-14] MEDS: ALLOPURINOL 300 MG TABLET (FP) PO SCH (09:49)
[2018-09-14] MEDS: CARVEDILOL 3.125 MG TABLET (FP) PO SCH (12:10)
--- NOTE | 2018-09-14 15:19 | PN ---
Progress Note, Physician Chief Complaint: Pt A&Ox3; OOB in chair; feels well; avoids getting dizzy by sitting at bedside for a minute before getting up, drinking fluids, and being aware of surroundings (e.g. having a wall nearby for potential support). History of Present Illness: Pt. is an 83 y.o. white man w/ PMHx. of HTN, systolic (severely reduced LVEF)/ diastolic CHF, s/p cardiac valvae replacements, HTN, CAD (NSTEMI 08/2017), PAD( left ICA completely occluded), Gout, OA, TIA, Hypothyroidism, and anxiety, who presents to the ED with fever, nausea, body aches and pain, rhinorrhea and increased dyspnea on exertion. Pt. states that at home he has been feeling " under the weather" for the last couple weeks and as if "something was brewing," when last night he spiked a fever to 102. Pt. called his PCP: Dr. Desai, who said he should come in to the ED. Pt. took a Tylenol decided to come in this AM after he found he was short of breath with minimal activity. Pt. endorses generalized body aches, SMITH, nausea, fevers and chills. Pt. endorses a sick contact of his "lady friend." Pt. states that he is up to date with all his vaccines. Pt. denies any diarrhea or constipation, polyuria or dysuria, sexual activity, productive cough or chest pain. s/p bio AVR and MV repair [facility] Dr. Prasad Ongoing medical problems [employer] AICD BIvi-pacing 2015 Dr. Dionte Oconnell LAFB October 24, 2014 PAD left ICA occlusion PPM DDD [employer] October 2014 RBBB October 24, 2014 RV pacing induced CMP / systolic CHF Trifascicular block , profound sinus bradycardia at 27. 2014 - Current Medication List Current Medications: Active Medications Allopurinol (Zyloprim -) 300 mg PO DAILY [facility] Last Admin: 09/14/18 09:49 Dose: 300 mg Aspirin (Ecotrin -) 81 mg PO DAILY [facility] Last Admin: 09/14/18 09:49 Dose: 81 mg Carvedilol (Coreg -) 3.125 mg PO DAILY [facility] Last Admin: 09/14/18 12:10 Dose: Not Given Clopidogrel Bisulfate (Plavix -) 75 mg PO DAILY [facility] Last Admin: 09/14/18 09:48 Dose: 75 mg Docusate Sodium (Colace -) 100 mg PO BID [facility] Last Admin: 09/14/18 09:48 Dose: 100 mg Levothyroxine Sodium (Synthroid -) 75 mcg PO DAILY@0700 [facility] Last Admin: 09/14/18 06:15 Dose: 75 mcg - Objective Vital Signs: Vital Signs Temperature 98.1 F 09/14/18 13:47 Pulse Rate 79 09/14/18 13:47 Respiratory Rate 16 09/14/18 13:47 Blood Pressure 83/47 L 09/14/18 13:47 O2 Sat by Pulse Oximetry (%) 95 09/14/18 08:46 Constitutional: Yes: Calm Eyes: Yes: WNL HENT: Yes: WNL Neck: Yes: WNL Cardiovascular: Yes: Murmur (2/4 diastolic, LSB-->axilla), S1 (split), S2 Respiratory: Yes: WNL Gastrointestinal: Yes: Soft. No: Tenderness ...Rectal Exam: Yes: Deferred Genitourinary: No: Anuria Breast(s): Yes: WNL Musculoskeletal: Yes: Muscle Weakness Extremities: Yes: WNL Edema: No Peripheral Pulses WNL: Yes Integumentary: Yes: WNL Neurological: Yes: WNL Psychiatric: Yes: WNL Labs: CBC, BMP 09/13/18 06:00 09/14/18 06:00 Problem List - Problems (1) Systolic and diastolic CHF w/reduced LV function, NYHA class 4 Assessment/Plan: ECHO 09/13/18: severely reduced LVEF; moderate LVE; severe JAIRON and LAE; mod- severe TR (moderate pulmonary HTN); moderate MR; mild AR. On carvedillol; increase to bid as tolerated. Restart ACEI, spironolactone gradually if orthostatic vital signs improve with fluids, salt, diet, physical therapy. F/u BUN/Cr, electrolytes, daily weight, Is and Os. Code(s): I50.40 - UNSP COMBINED SYSTOLIC AND DIASTOLIC (CONGESTIVE) HRT FAIL (2) Fever and chills Assessment/Plan: afebrile since admission. Code(s): R50.9 - FEVER, UNSPECIFIED (3) AICD (automatic cardioverter/defibrillator) present Assessment/Plan: f/u interrogation Code(s): Z95.810 - PRESENCE OF AUTOMATIC (IMPLANTABLE) CARDIAC DEFIBRILLATOR (4) Anxiety and depression Code(s): F41.9 - ANXIETY DISORDER, UNSPECIFIED; F32.9 - MAJOR DEPRESSIVE DISORDER, SINGLE EPISODE, UNSPECIFIED (5) Aortic valve replaced Assessment/Plan: ECHO results noted (AoV well-seated; mild AR; cannot r/o significant ). Code(s): Z95.2 - PRESENCE OF PROSTHETIC HEART VALVE (6) CAD (coronary artery disease) Assessment/Plan: On ASA and clopidogrel (f/u platelets: borderline low on admission; may have to stop at least one antiplatelet--one year post-NSTEMI, ?no stent). Code(s): I25.10 - ATHSCL HEART DISEASE OF [place] CORONARY ARTERY W/O ANG PCTRS (7) Gout Code(s): M10.9 - GOUT, UNSPECIFIED Qualifiers: Gout etiology: unspecified cause Presence of tophus: without tophus (8) Hyperlipidemia Assessment/Plan: LDL cholesterol 66 mg/dL. Code(s): E78.5 - HYPERLIPIDEMIA, UNSPECIFIED Qualifiers: (9) Hypothyroid Assessment/Plan: on Synthroid. TSH WNL. Code(s): E03.9 - HYPOTHYROIDISM, UNSPECIFIED Qualifiers: Hypothyroidism type: acquired Qualified Code(s): E03.9 - Hypothyroidism, unspecified (10) Status post mitral valve annuloplasty Assessment/Plan: FECHO resutls noted: moderate MR. Code(s): Z98.89 - OTHER SPECIFIED POSTPROCEDURAL STATES * DO NOT USE * (11) Elevated troponin Assessment/Plan: Hx NSTEMI 08/2017 mild chronic elevation of TNI since at least 2015 EKG: AV paced rhythm Code(s): R74.8 - ABNORMAL LEVELS OF OTHER SERUM ENZYMES (12) Chronic renal failure Code(s): N18.9 - CHRONIC KIDNEY DISEASE, UNSPECIFIED (13) Orthostatic dizziness Assessment/Plan: Encourage fluids (but keep maximum 1.5 liters/day, given severe LV dysfunction). On beta blockers. Proper diet, including salt (within CHF guidelines). May be problematic starting fluorinef/midodrine; f/u with neuro. Awarenes of physical surroundings; care in standing; physical therapy/ strenthening exercises. Code(s): R42 - DIZZINESS AND GIDDINESS
[2018-09-14] MEDS ORDERED: SODIUM CHLORIDE 250 ML IV STA (15:27)
--- NOTE | 2018-09-14 15:27 | PN ---
Progress Note (short form) - Note Progress Note: Current Medications Allopurinol (Zyloprim -) 300 mg PO DAILY [facility] Last Admin: 09/14/18 09:49 Dose: 300 mg Aspirin (Ecotrin -) 81 mg PO DAILY [facility] Last Admin: 09/14/18 09:49 Dose: 81 mg Carvedilol (Coreg -) 3.125 mg PO DAILY [facility] Last Admin: 09/14/18 12:10 Dose: Not Given Clopidogrel Bisulfate (Plavix -) 75 mg PO DAILY [facility] Last Admin: 09/14/18 09:48 Dose: 75 mg Docusate Sodium (Colace -) 100 mg PO BID [facility] Last Admin: 09/14/18 09:48 Dose: 100 mg Levothyroxine Sodium (Synthroid -) 75 mcg PO DAILY@0700 [facility] Last Admin: 09/14/18 06:15 Dose: 75 mcg Laboratory Results - last 24 hr 09/14/18 06:00 Sodium 138 Potassium 4.5 Chloride 106 Carbon Dioxide 23 Anion Gap 9 BUN 47 H Creatinine 1.9 H Creat Clearance w eGFR 34.11 Random Glucose 89 Calcium 8.6 Creatine Kinase 46 Troponin I 0.08 H Vital Signs Temperature 98.1 F 09/14/18 13:47 Pulse Rate 79 09/14/18 13:47 Respiratory Rate 16 09/14/18 13:47 Blood Pressure 83/47 L 09/14/18 13:47 O2 Sat by Pulse Oximetry (%) 95 09/14/18 08:46 CC: lightheaded when standing & walking ``````````````````````````` skin--NL color heart--RR abd--benign lungs--clear ext--no edema; IV site clear neuro--fully alert; coherent w/o focal deficits; gait a bit wobbly ```````````````````````` Summ > hypotension--iatrogenic? all diuretics on hold; now the Coreg on hold,diet liberalized: PLAN IV NS bolus of 250CC > CHF--based on high BNP and presence of Pl effusion; await echo report > Htn w/ ASHD and CRI--BP low and displays orthostatic Sx; will implement low IV NS bolus > elevated Trop--overall significance unclear in back drop of CRI and viral syndrome; now trending down, will check daily > bacturia--with NL Ua; no dysuria; repeat Urine C& S show bact count under 10K ; he has no sx ~~~~~~~~~~~~~~~~~~~~~~~~ Dr Desai Problem List - Problems (1) Fever and chills Code(s): R50.9 - FEVER, UNSPECIFIED (2) Hypertensive heart and chronic kidney disease with heart failure and stage 1 through stage 4 chronic kidney disease, or chronic kidney disease Code(s): I13.0 - HYP HRT & CHR KDNY DIS W HRT FAIL AND STG 1-4/UNSP CHR KDNY; I50.9 - HEART FAILURE, UNSPECIFIED; N18.9 - CHRONIC KIDNEY DISEASE, UNSPECIFIED (3) Elevated troponin Code(s): R74.8 - ABNORMAL LEVELS OF OTHER SERUM ENZYMES (4) Lipid disorder Code(s): E78.9 - DISORDER OF LIPOPROTEIN METABOLISM, UNSPECIFIED (5) Presence of combination internal cardiac defibrillator (ICD) and pacemaker Code(s): Z95.810 - PRESENCE OF AUTOMATIC (IMPLANTABLE) CARDIAC DEFIBRILLATOR (6) Gout Code(s): M10.9 - GOUT, UNSPECIFIED (7) Angioneurotic edema Code(s): T78.3XXA - ANGIONEUROTIC EDEMA, INITIAL ENCOUNTER Qualifiers: (8) Aortic valve replaced Code(s): Z95.2 - PRESENCE OF PROSTHETIC HEART VALVE (9) Hypothyroid Code(s): E03.9 - HYPOTHYROIDISM, UNSPECIFIED Qualifiers: Qualified Code(s): E03.9 - Hypothyroidism, unspecified (10) Anxiety and depression Code(s): F41.9 - ANXIETY DISORDER, UNSPECIFIED; F32.9 - MAJOR DEPRESSIVE DISORDER, SINGLE EPISODE, UNSPECIFIED (11) PAD (peripheral artery disease) Code(s): I73.9 - PERIPHERAL VASCULAR DISEASE, UNSPECIFIED (12) Encounter for long-term use of antiplatelets/antithrombotics Code(s): Z79.02 - SERVICE INSPECTOR (CURRENT) USE OF ANTITHROMBOTICS/ANTIPLATELETS
[2018-09-14] MEDS: PARoxetine HCL 10 MG TABLET (FP) PO SCH (23:56)
[2018-09-15] MEDS: LEVOTHYROXINE NA 75 MCG TABLET (FP) PO SCH (06:50)
[2018-09-15 07:08] LABS: ANION GAP 8 MMOL/L (8-16); BLOOD UREA NITROGEN 44 mg/dL (7-18); CALCIUM 9.1 mg/dL (8.5-10.1); CHLORIDE 105 mmol/L (98-107); CO2 24 mmol/L (21-32); GLUCOSE,RANDOM 104 mg/dL (74-106); POTASSIUM 4.9 mmol/L (3.5-5.1); SODIUM 136 mmol/L (136-145)
[2018-09-15] MEDS: ASPIRIN COATED 81 MG TABLET.EC PO SCH (10:13)
[2018-09-15] MEDS: DOCUSATE SODIUM 100 MG CAPSULE (FP) PO SCH ×2 (10:13→21:38)
[2018-09-15] MEDS: ALLOPURINOL 300 MG TABLET (FP) PO SCH (10:13)
[2018-09-15] MEDS: CLOPIDOGREL BISULFATE 75 MG TABLET (FP) PO SCH (10:13)
[2018-09-15] MEDS ORDERED: ACETAMINOPHEN 325 MG TABLET (FP) PO PRN (15:05)
[2018-09-15] MEDS ORDERED: ALPRAZolam 0.25 MG TABLET PO ONE (17:16)
[2018-09-15] MEDS ORDERED: FUROSEMIDE 40 MG TABLET (FP) PO ONE (17:18)
--- NOTE | 2018-09-15 17:25 | PN ---
Progress Note (short form) - Note Progress Note: Current Medications Acetaminophen (Tylenol -) 650 mg PO Q6H PRN PRN Reason: FEVER OR HEADACHE Allopurinol (Zyloprim -) 300 mg PO DAILY [facility] Last Admin: 09/15/18 10:13 Dose: 300 mg Aspirin (Ecotrin -) 81 mg PO DAILY [facility] Last Admin: 09/15/18 10:13 Dose: 81 mg Carvedilol (Coreg -) 3.125 mg PO DAILY [facility] Last Admin: 09/14/18 12:10 Dose: Not Given Clopidogrel Bisulfate (Plavix -) 75 mg PO DAILY [facility] Last Admin: 09/15/18 10:13 Dose: 75 mg Docusate Sodium (Colace -) 100 mg PO BID [facility] Last Admin: 09/15/18 10:13 Dose: 100 mg Furosemide (Lasix -) 40 mg PO ONCE ONE Stop: 09/15/18 17:19 Levothyroxine Sodium (Synthroid -) 75 mcg PO DAILY@0700 [facility] Last Admin: 09/15/18 06:50 Dose: 75 mcg Paroxetine HCl (Paxil -) 5 mg PO HS [facility] Last Admin: 09/14/18 23:56 Dose: 5 mg Laboratory Results - last 24 hr 09/15/18 09/15/18 09/15/18 04:28 05:30 15:15 Sodium 136 Potassium 4.9 Chloride 105 Carbon Dioxide 24 Anion Gap 8 BUN 44 H Creatinine 2.0 H Creat Clearance w eGFR 32.15 POC Glucometer 105 Random Glucose 104 Calcium 9.1 Creatine Kinase 44 Troponin I 0.11 H Influenza A (Rapid) Negative Influenza B (Rapid) Negative Vital Signs Temperature 98.0 F 09/15/18 14:00 Pulse Rate 79 09/15/18 14:00 Respiratory Rate 18 09/15/18 14:00 Blood Pressure 130/67 09/15/18 14:00 O2 Sat by Pulse Oximetry (%) 96 09/15/18 09:00 CC: lightheaded when standing & walking; feels achy with nasal discharge ``````````````````````````` skin--NL color heart--RR abd--benign lungs--clear ext--no edema; IV site clear neuro--fully alert; coherent w/o focal deficits. ```````````````````````` Summ > malaise--with URI Sx that developed over the past 24 Hrs; nasal discharge that tested negative for FLu A&B. > anxiety--restarted SSRI last PM; feels unsettled, anxious; will Rx xanax x 1 dose > CHF--based on high BNP; will resume lasix in view of higher BP > Htn w/ ASHD and CRI--BP now higher; will resume Diuretic and will restart BB in AM > elevated Trop--persistent, possible 2nd to LVdysf > bacturia--no dysuria; repeat Urine C& S show bact count under 10K; he has no sx ~~~~~~~~~~~~~~~~~~~~~~~~ Dr Desai Problem List - Problems (1) Fever and chills Code(s): R50.9 - FEVER, UNSPECIFIED (2) Hypertensive heart and chronic kidney disease with heart failure and stage 1 through stage 4 chronic kidney disease, or chronic kidney disease Code(s): I13.0 - HYP HRT & CHR KDNY DIS W HRT FAIL AND STG 1-4/UNSP CHR KDNY; I50.9 - HEART FAILURE, UNSPECIFIED; N18.9 - CHRONIC KIDNEY DISEASE, UNSPECIFIED (3) Elevated troponin Code(s): R74.8 - ABNORMAL LEVELS OF OTHER SERUM ENZYMES (4) Lipid disorder Code(s): E78.9 - DISORDER OF LIPOPROTEIN METABOLISM, UNSPECIFIED (5) Presence of combination internal cardiac defibrillator (ICD) and pacemaker Code(s): Z95.810 - PRESENCE OF AUTOMATIC (IMPLANTABLE) CARDIAC DEFIBRILLATOR (6) Gout Code(s): M10.9 - GOUT, UNSPECIFIED Qualifiers: Gout etiology: unspecified cause Presence of tophus: without tophus (7) Angioneurotic edema Code(s): T78.3XXA - ANGIONEUROTIC EDEMA, INITIAL ENCOUNTER Qualifiers: (8) Aortic valve replaced Code(s): Z95.2 - PRESENCE OF PROSTHETIC HEART VALVE (9) Hypothyroid Code(s): E03.9 - HYPOTHYROIDISM, UNSPECIFIED Qualifiers: Hypothyroidism type: acquired Qualified Code(s): E03.9 - Hypothyroidism, unspecified (10) Anxiety and depression Code(s): F41.9 - ANXIETY DISORDER, UNSPECIFIED; F32.9 - MAJOR DEPRESSIVE DISORDER, SINGLE EPISODE, UNSPECIFIED (11) PAD (peripheral artery disease) Code(s): I73.9 - PERIPHERAL VASCULAR DISEASE, UNSPECIFIED (12) Encounter for long-term use of antiplatelets/antithrombotics Code(s): Z79.02 - ALF (CURRENT) USE OF ANTITHROMBOTICS/ANTIPLATELETS
[2018-09-15] MEDS: PARoxetine HCL 10 MG TABLET (FP) PO SCH (21:38)
[2018-09-15] MEDS ORDERED: ONDANSETRON 4 MG/2 ML VIAL ONE (22:04)
[2018-09-15] MEDS ORDERED: ONDANSETRON 4 MG/2 ML VIAL IVPUSH ONE (23:15)
[2018-09-16] MEDS: LEVOTHYROXINE NA 75 MCG TABLET (FP) PO SCH (06:38)
[2018-09-16] MEDS ORDERED: CARVEDILOL 3.125 MG TABLET (FP) PO ONE (08:00)
[2018-09-16 08:06] LABS: BASO % 0.7 % (0-2.0); EOS % 0.6 % (0-4.5); HEMATOCRIT 38.2 % (35.4-49); HEMOGLOBIN 12.7 GM/dL (11.7-16.9); LYMPH % 24.8 % (8-40); MCH 31.6 pg (25.7-33.7); MCHC 33.2 g/dl (32.0-35.9); MEAN CELL VOLUME 95.2 fl (80-96); MEAN PLT VOLUME 9.3 fl (7.5-11.1); MONO % 12.2 % (3.8-10.2); NEUT % 61.7 % (42.8-82.8); PLATELET COUNT 143 K/MM3 (134-434); RBC 4.02 M/mm3 (4.00-5.60); RDW 15.6 % (11.9-15.9); WHITE BLOOD COUNT 5.9 K/mm3 (4.0-10.0)
[2018-09-16 08:28] LABS: ANION GAP 10 MMOL/L (8-16); BLOOD UREA NITROGEN 45 mg/dL (7-18); CALCIUM 9.1 mg/dL (8.5-10.1); CHLORIDE 106 mmol/L (98-107); CO2 23 mmol/L (21-32); CREATININE 2.1 mg/dL (0.55-1.3); GLUCOSE,RANDOM 99 mg/dL (74-106); POTASSIUM 4.9 mmol/L (3.5-5.1); SODIUM 138 mmol/L (136-145)
[2018-09-16] MEDS: DOCUSATE SODIUM 100 MG CAPSULE (FP) PO SCH ×2 (09:57→21:33)
[2018-09-16] MEDS: ALLOPURINOL 300 MG TABLET (FP) PO SCH (09:57)
[2018-09-16] MEDS: CLOPIDOGREL BISULFATE 75 MG TABLET (FP) PO SCH (09:57)
[2018-09-16] MEDS: ASPIRIN COATED 81 MG TABLET.EC PO SCH (09:57)
[2018-09-16] MEDS ORDERED: ONDANSETRON 4 MG/2 ML VIAL IVPUSH PRN (13:58)
--- NOTE | 2018-09-16 14:07 | PN ---
Progress Note (short form) - Note Progress Note: Current Medications Acetaminophen (Tylenol -) 650 mg PO Q6H PRN PRN Reason: FEVER OR HEADACHE Allopurinol (Zyloprim -) 300 mg PO DAILY [facility] Last Admin: 09/16/18 09:57 Dose: 300 mg Alprazolam (Xanax -) 0.25 mg PO BID PRN PRN Reason: ANXIETY Aspirin (Ecotrin -) 81 mg PO DAILY [facility] Last Admin: 09/16/18 09:57 Dose: 81 mg Azithromycin (Zithromax -) 250 mg PO DAILY [facility] Clopidogrel Bisulfate (Plavix -) 75 mg PO DAILY [facility] Last Admin: 09/16/18 09:57 Dose: 75 mg Docusate Sodium (Colace -) 100 mg PO BID [facility] Last Admin: 09/16/18 09:57 Dose: 100 mg Furosemide (Lasix -) 40 mg PO DAILY [facility] Levothyroxine Sodium (Synthroid -) 75 mcg PO DAILY@0700 [facility] Last Admin: 09/16/18 06:38 Dose: 75 mcg Laboratory Results - last 24 hr 09/15/18 09/15/18 09/16/18 04:28 15:15 06:00 WBC 5.9 RBC 4.02 Hgb 12.7 Hct 38.2 MCV 95.2 MCH 31.6 MCHC 33.2 RDW 15.6 Plt Count 143 MPV 9.3 Absolute Neuts (auto) 3.6 Neutrophils % 61.7 Lymphocytes % 24.8 Monocytes % 12.2 H Eosinophils % 0.6 Basophils % 0.7 Nucleated RBC % 0 Sodium Potassium Chloride Carbon Dioxide Anion Gap BUN Creatinine Creat Clearance w eGFR POC Glucometer 105 Random Glucose Calcium Creatine Kinase Troponin I Influenza A (Rapid) Negative Influenza B (Rapid) Negative 09/16/18 06:00 WBC RBC Hgb Hct MCV MCH MCHC RDW Plt Count MPV Absolute Neuts (auto) Neutrophils % Lymphocytes % Monocytes % Eosinophils % Basophils % Nucleated RBC % Sodium 138 Potassium 4.9 Chloride 106 Carbon Dioxide 23 Anion Gap 10 BUN 45 H Creatinine 2.1 H Creat Clearance w eGFR 30.39 POC Glucometer Random Glucose 99 Calcium 9.1 Creatine Kinase 45 Troponin I 0.12 H Influenza A (Rapid) Influenza B (Rapid) Vital Signs Temperature 98.9 F 09/16/18 10:00 Pulse Rate 72 09/16/18 10:00 Respiratory Rate 18 09/16/18 10:00 Blood Pressure 109/66 09/16/18 10:00 O2 Sat by Pulse Oximetry (%) 96 09/16/18 10:00 CC: lightheaded when standing & walking; now has productive cough ``````````````````````````` skin--NL color heart--RR abd--benign lungs--clear ext--no edema; IV site clear neuro--fully alert; coherent w/o focal deficits; jittery on his feet. ```````````````````````` Summ > URI--now bringing up yellowish phlegm; lungs clear PLAN: zithromax > anxiety--feels unsettled in PM, unsure if the SSRI is helping, PLAN: stop paxil; start PRN xanax > CHF--based on high BNP; denies SOB; and will resume lasix in AM > Htn w/ ASHD and CRI--BP now better; will resume Diuretic and will restart BB in AM > elevated Trop--persistent, possible 2nd to LVdysf > bacturia--no dysuria; repeat Urine C& S show bact count under 10K; he has no sx ~~~~~~~~~~~~~~~~~~~~~~~~ Dr Desai Problem List - Problems (1) Fever and chills Code(s): R50.9 - FEVER, UNSPECIFIED (2) Hypertensive heart and chronic kidney disease with heart failure and stage 1 through stage 4 chronic kidney disease, or chronic kidney disease Code(s): I13.0 - HYP HRT & CHR KDNY DIS W HRT FAIL AND STG 1-4/UNSP CHR KDNY; I50.9 - HEART FAILURE, UNSPECIFIED; N18.9 - CHRONIC KIDNEY DISEASE, UNSPECIFIED (3) Elevated troponin Code(s): R74.8 - ABNORMAL LEVELS OF OTHER SERUM ENZYMES (4) Lipid disorder Code(s): E78.9 - DISORDER OF LIPOPROTEIN METABOLISM, UNSPECIFIED (5) Presence of combination internal cardiac defibrillator (ICD) and pacemaker Code(s): Z95.810 - PRESENCE OF AUTOMATIC (IMPLANTABLE) CARDIAC DEFIBRILLATOR (6) Gout Code(s): M10.9 - GOUT, UNSPECIFIED Qualifiers: Gout etiology: unspecified cause Presence of tophus: without tophus (7) Angioneurotic edema Code(s): T78.3XXA - ANGIONEUROTIC EDEMA, INITIAL ENCOUNTER Qualifiers: (8) Aortic valve replaced Code(s): Z95.2 - PRESENCE OF PROSTHETIC HEART VALVE (9) Hypothyroid Code(s): E03.9 - HYPOTHYROIDISM, UNSPECIFIED Qualifiers: Hypothyroidism type: acquired Qualified Code(s): E03.9 - Hypothyroidism, unspecified (10) Anxiety and depression Code(s): F41.9 - ANXIETY DISORDER, UNSPECIFIED; F32.9 - MAJOR DEPRESSIVE DISORDER, SINGLE EPISODE, UNSPECIFIED (11) PAD (peripheral artery disease) Code(s): I73.9 - PERIPHERAL VASCULAR DISEASE, UNSPECIFIED (12) Encounter for long-term use of antiplatelets/antithrombotics Code(s): Z79.02 - COTTON FARMWORKER (CURRENT) USE OF ANTITHROMBOTICS/ANTIPLATELETS
[2018-09-16] MEDS: AZITHROMYCIN 250 MG TABLET PO SCH (15:45)
[2018-09-17] MEDS: LEVOTHYROXINE NA 75 MCG TABLET (FP) PO SCH (06:07)
[2018-09-17 07:05] LABS: ANION GAP 9 MMOL/L (8-16); BLOOD UREA NITROGEN 52 mg/dL (7-18); CALCIUM 8.8 mg/dL (8.5-10.1); CHLORIDE 105 mmol/L (98-107); CO2 25 mmol/L (21-32); CREATININE 2.2 mg/dL (0.55-1.3); GLUCOSE,RANDOM 90 mg/dL (74-106); POTASSIUM 4.6 mmol/L (3.5-5.1); SODIUM 138 mmol/L (136-145)
[2018-09-17] MEDS: ASPIRIN COATED 81 MG TABLET.EC PO SCH (09:23)
[2018-09-17] MEDS: DOCUSATE SODIUM 100 MG CAPSULE (FP) PO SCH ×2 (09:23→21:11)
[2018-09-17] MEDS: ALPRAZolam 0.25 MG TABLET PO PRN ×3 (09:23→21:11)
[2018-09-17] MEDS: CLOPIDOGREL BISULFATE 75 MG TABLET (FP) PO SCH (09:23)
[2018-09-17] MEDS: AZITHROMYCIN 250 MG TABLET PO SCH (09:24)
[2018-09-17] MEDS: ALLOPURINOL 300 MG TABLET (FP) PO SCH (09:24)
[2018-09-17] MEDS: FUROSEMIDE 40 MG TABLET (FP) PO SCH (09:26)
[2018-09-17] MEDS ORDERED: SODIUM CHLORIDE 250 ML IV STA (12:18)
--- NOTE | 2018-09-17 12:25 | PN ---
Progress Note (short form) - Note Progress Note: Current Medications Acetaminophen (Tylenol -) 650 mg PO Q6H PRN PRN Reason: FEVER OR HEADACHE Allopurinol (Zyloprim -) 300 mg PO DAILY [facility] Last Admin: 09/17/18 09:24 Dose: 300 mg Alprazolam (Xanax -) 0.25 mg PO Q12H PRN PRN Reason: ANXIETY Last Admin: 09/17/18 09:23 Dose: 0.25 mg Aspirin (Ecotrin -) 81 mg PO DAILY [facility] Last Admin: 09/17/18 09:23 Dose: 81 mg Azithromycin (Zithromax -) 250 mg PO DAILY [facility] Last Admin: 09/17/18 09:24 Dose: 250 mg Clopidogrel Bisulfate (Plavix -) 75 mg PO DAILY [facility] Last Admin: 09/17/18 09:23 Dose: 75 mg Docusate Sodium (Colace -) 100 mg PO BID [facility] Last Admin: 09/17/18 09:23 Dose: 100 mg Furosemide (Lasix -) 40 mg PO DAILY [facility] Last Admin: 09/17/18 09:26 Dose: Not Given Sodium Chloride (Normal Saline -) 250 mls @ 250 mls/hr IV ASDIR STA Stop: 09/17/18 13:17 Levothyroxine Sodium (Synthroid -) 75 mcg PO DAILY@0700 [facility] Last Admin: 09/17/18 06:07 Dose: 75 mcg Laboratory Results - last 24 hr 09/17/18 05:25 Sodium 138 Potassium 4.6 Chloride 105 Carbon Dioxide 25 Anion Gap 9 BUN 52 H Creatinine 2.2 H Creat Clearance w eGFR 28.80 Random Glucose 90 Calcium 8.8 Creatine Kinase 46 Troponin I 0.10 H Vital Signs Temperature 97.8 F 09/17/18 11:13 Pulse Rate 77 09/17/18 11:13 Respiratory Rate 16 09/17/18 11:13 Blood Pressure 87/51 L 09/17/18 11:13 O2 Sat by Pulse Oximetry (%) 95 09/17/18 08:08 CC: lightheaded when standing and still has a cough; has felt chills ``````````````````````````` skin--NL color heart--RR abd--benign lungs--clear ext--no edema; IV site clear neuro--fully alert; coherent w/o focal deficits; jittery on his feet. ```````````````````````` Summ > URI--lungs clear PLAN: cont zithromax > Hypotension--with rise of renal function tests; ? diminished renal perfusion PLAN: stop Lasix & BB; will Rx NS 250 > anxiety--slept better w/o SSRI > CHF--based on high BNP; recent CXR w/o failure > elevated Trop--persistent, possible 2nd to LVdysf > bacturia--no dysuria; repeat Urine C& S show bact count under 10K; he has no sx ~~~~~~~~~~~~~~~~~~~~~~~~ Dr Desai Problem List - Problems (1) Fever and chills Code(s): R50.9 - FEVER, UNSPECIFIED (2) Hypertensive heart and chronic kidney disease with heart failure and stage 1 through stage 4 chronic kidney disease, or chronic kidney disease Code(s): I13.0 - HYP HRT & CHR KDNY DIS W HRT FAIL AND STG 1-4/UNSP CHR KDNY; I50.9 - HEART FAILURE, UNSPECIFIED; N18.9 - CHRONIC KIDNEY DISEASE, UNSPECIFIED (3) Elevated troponin Code(s): R74.8 - ABNORMAL LEVELS OF OTHER SERUM ENZYMES (4) Lipid disorder Code(s): E78.9 - DISORDER OF LIPOPROTEIN METABOLISM, UNSPECIFIED (5) Presence of combination internal cardiac defibrillator (ICD) and pacemaker Code(s): Z95.810 - PRESENCE OF AUTOMATIC (IMPLANTABLE) CARDIAC DEFIBRILLATOR (6) Gout Code(s): M10.9 - GOUT, UNSPECIFIED Qualifiers: Gout etiology: unspecified cause Presence of tophus: without tophus (7) Angioneurotic edema Code(s): T78.3XXA - ANGIONEUROTIC EDEMA, INITIAL ENCOUNTER Qualifiers: (8) Aortic valve replaced Code(s): Z95.2 - PRESENCE OF PROSTHETIC HEART VALVE (9) Hypothyroid Code(s): E03.9 - HYPOTHYROIDISM, UNSPECIFIED Qualifiers: Hypothyroidism type: acquired Qualified Code(s): E03.9 - Hypothyroidism, unspecified (10) Anxiety and depression Code(s): F41.9 - ANXIETY DISORDER, UNSPECIFIED; F32.9 - MAJOR DEPRESSIVE DISORDER, SINGLE EPISODE, UNSPECIFIED (11) PAD (peripheral artery disease) Code(s): I73.9 - PERIPHERAL VASCULAR DISEASE, UNSPECIFIED (12) Encounter for long-term use of antiplatelets/antithrombotics Code(s): Z79.02 - DIRECTOR OF CASEWORK SERVICES (CURRENT) USE OF ANTITHROMBOTICS/ANTIPLATELETS
[2018-09-17] MEDS ORDERED: CARVEDILOL 3.125 MG TABLET (FP) PO ONE (14:00)
[2018-09-17] MEDS: ROSUVASTATIN CA 5 MG TABLET (FP) PO SCH (21:12)
[2018-09-18] MEDS: LEVOTHYROXINE NA 75 MCG TABLET (FP) PO SCH (06:25)
--- NOTE | 2018-09-18 07:41 | PN ---
Progress Note, Physician Chief Complaint: Pt A&Ox3; walked in hallway; no dizziness. History of Present Illness: Pt. is an 83 y.o. white man w/ PMHx. of HTN, systolic (severely reduced LVEF)/ diastolic CHF, s/p cardiac valvae replacements, HTN, CAD (NSTEMI 08/2017), PAD( left ICA completely occluded), Gout, OA, TIA, Hypothyroidism, and anxiety, who presents to the ED with fever, nausea, body aches and pain, rhinorrhea and increased dyspnea on exertion. Pt. states that at home he has been feeling " under the weather" for the last couple weeks and as if "something was brewing," when last night he spiked a fever to 102. Pt. called his PCP: Dr. Desai, who said he should come in to the ED. Pt. took a Tylenol decided to come in this AM after he found he was short of breath with minimal activity. Pt. endorses generalized body aches, SMITH, nausea, fevers and chills. Pt. endorses a sick contact of his "lady friend." Pt. states that he is up to date with all his vaccines. Pt. denies any diarrhea or constipation, polyuria or dysuria, sexual activity, productive cough or chest pain. s/p bio AVR and MV repair [facility] Dr. Prasad Ongoing medical problems [employer] AICD BIvi-pacing 2015 Dr. 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 2014 - Current Medication List Current Medications: Active Medications Acetaminophen (Tylenol -) 650 mg PO Q6H PRN PRN Reason: FEVER OR HEADACHE Allopurinol (Zyloprim -) 300 mg PO DAILY [facility] Last Admin: 09/17/18 09:24 Dose: 300 mg Alprazolam (Xanax -) 0.25 mg PO Q12H PRN PRN Reason: ANXIETY Last Admin: 09/17/18 21:11 Dose: 0.25 mg Aspirin (Ecotrin -) 81 mg PO DAILY [facility] Last Admin: 09/17/18 09:23 Dose: 81 mg Azithromycin (Zithromax -) 250 mg PO DAILY [facility] Last Admin: 09/17/18 09:24 Dose: 250 mg Clopidogrel Bisulfate (Plavix -) 75 mg PO DAILY [facility] Last Admin: 09/17/18 09:23 Dose: 75 mg Docusate Sodium (Colace -) 100 mg PO BID [facility] Last Admin: 09/17/18 21:11 Dose: 100 mg Furosemide (Lasix -) 40 mg PO DAILY [facility] Last Admin: 09/17/18 09:26 Dose: Not Given Levothyroxine Sodium (Synthroid -) 75 mcg PO DAILY@0700 [facility] Last Admin: 09/18/18 06:25 Dose: 75 mcg Rosuvastatin Calcium (Crestor -) 5 mg PO HS [facility] Last Admin: 09/17/18 21:12 Dose: 5 mg - Objective Vital Signs: Vital Signs Temperature 97.8 F 09/18/18 06:00 Pulse Rate 76 09/18/18 06:00 Respiratory Rate 18 09/18/18 06:00 Blood Pressure 97/61 09/18/18 06:00 O2 Sat by Pulse Oximetry (%) 95 09/17/18 21:00 Constitutional: Yes: Calm Eyes: Yes: WNL HENT: Yes: WNL Neck: Yes: WNL Cardiovascular: Yes: S1, S2 Respiratory: Yes: WNL Gastrointestinal: Yes: Soft ...Rectal Exam: Yes: Deferred Genitourinary: No: Anuria Breast(s): Yes: WNL Musculoskeletal: Yes: Muscle Weakness Extremities: Yes: WNL Edema: No Peripheral Pulses WNL: Yes Integumentary: Yes: WNL Neurological: Yes: WNL Psychiatric: Yes: Other (anxeity) Labs: CBC, BMP 09/16/18 06:00 Problem List - Problems (1) Systolic and diastolic CHF w/reduced LV function, NYHA class 4 Assessment/Plan: ECHO 09/13/18: severely reduced LVEF; moderate LVE; severe JAIRON and LAE; mod- severe TR (moderate pulmonary HTN); moderate MR; mild AR. Ideally, restart cavredilol, ACEI, spironolactone one by one if orthostatic vital signs improve (and, for ACEI and RAAS, if present renal dysfunction stabilizes) with fluids, salt, diet, physical therapy (presently on furosemide). F/u BUN/Cr, electrolytes, daily weight, Is and Os. Code(s): I50.40 - UNSP COMBINED SYSTOLIC AND DIASTOLIC (CONGESTIVE) HRT FAIL (2) Fever and chills Assessment/Plan: afebrile since admission. Code(s): R50.9 - FEVER, UNSPECIFIED (3) AICD (automatic cardioverter/defibrillator) present Assessment/Plan: f/u interrogation Code(s): Z95.810 - PRESENCE OF AUTOMATIC (IMPLANTABLE) CARDIAC DEFIBRILLATOR (4) Anxiety and depression Assessment/Plan: on alprazolam. Code(s): F41.9 - ANXIETY DISORDER, UNSPECIFIED; F32.9 - MAJOR DEPRESSIVE DISORDER, SINGLE EPISODE, UNSPECIFIED (5) Aortic valve replaced Assessment/Plan: ECHO results noted (AoV well-seated; mild AR; cannot r/o significant ). Code(s): Z95.2 - PRESENCE OF PROSTHETIC HEART VALVE (6) CAD (coronary artery disease) Assessment/Plan: On ASA and clopidogrel (f/u platelets: borderline low on admission; may have to stop at least one antiplatelet--one year post-NSTEMI, ?no stent). Code(s): I25.10 - ATHSCL HEART DISEASE OF [place] CORONARY ARTERY W/O ANG PCTRS (7) Gout Assessment/Plan: on Xyloprim. Code(s): M10.9 - GOUT, UNSPECIFIED Qualifiers: Gout etiology: unspecified cause Presence of tophus: without tophus (8) Hyperlipidemia Assessment/Plan: LDL cholesterol 66 mg/dL. On statin. Code(s): E78.5 - HYPERLIPIDEMIA, UNSPECIFIED Qualifiers: (9) Hypothyroid Assessment/Plan: on Synthroid. TSH WNL. Code(s): E03.9 - HYPOTHYROIDISM, UNSPECIFIED Qualifiers: Hypothyroidism type: acquired Qualified Code(s): E03.9 - Hypothyroidism, unspecified (10) Status post mitral valve annuloplasty Assessment/Plan: FECHO resutls noted: moderate MR. Code(s): Z98.89 - OTHER SPECIFIED POSTPROCEDURAL STATES * DO NOT USE * (11) Elevated troponin Assessment/Plan: Hx NSTEMI 08/2017 mild chronic elevation of TNI since at least 2015; severe systolic LV dysfunction a likely contributer. EKG: AV paced rhythm Code(s): R74.8 - ABNORMAL LEVELS OF OTHER SERUM ENZYMES (12) Chronic renal failure Assessment/Plan: f/u with human resources department supervisor. Furosemide may have to be reduced or stopped. Code(s): N18.9 - CHRONIC KIDNEY DISEASE, UNSPECIFIED (13) Orthostatic dizziness Assessment/Plan: Encourage fluids (but keep maximum 1.5 liters/day, given severe LV dysfunction). On furosemide. Proper diet, including salt (within CHF guidelines). Awarenes of physical surroundings; care in standing; physical therapy/ strengthening exercises. Code(s): R42 - DIZZINESS AND GIDDINESS
[2018-09-18 07:46] LABS: ANION GAP 9 MMOL/L (8-16); BLOOD UREA NITROGEN 52 mg/dL (7-18); CALCIUM 8.4 mg/dL (8.5-10.1); CHLORIDE 107 mmol/L (98-107); CO2 23 mmol/L (21-32); CREATININE 2.1 mg/dL (0.55-1.3); GLUCOSE,RANDOM 118 mg/dL (74-106); POTASSIUM 4.2 mmol/L (3.5-5.1); SODIUM 139 mmol/L (136-145)
[2018-09-18] MEDS: ASPIRIN COATED 81 MG TABLET.EC PO SCH (09:01)
[2018-09-18] MEDS: ALLOPURINOL 300 MG TABLET (FP) PO SCH (09:01)
[2018-09-18] MEDS: ALPRAZolam 0.25 MG TABLET PO PRN (09:01)
[2018-09-18] MEDS: DOCUSATE SODIUM 100 MG CAPSULE (FP) PO SCH ×2 (09:01→21:07)
[2018-09-18] MEDS: CLOPIDOGREL BISULFATE 75 MG TABLET (FP) PO SCH (09:01)
[2018-09-18] MEDS: AZITHROMYCIN 250 MG TABLET PO SCH (09:01)
[2018-09-18] MEDS: FUROSEMIDE 40 MG TABLET (FP) PO SCH (09:02)
--- NOTE | 2018-09-18 09:11 | PN ---
Progress Note, Physician History of Present Illness: Pt. is an 83 y.o. M w/ PMHx. of HTN, CHF, HTN, CAD, PAD(left ICA completely occluded), Gout, OA, Hypothyroidism and anxiety presents to the ED with fever, nausea, body aches and pain, rhinorrhea and increased dyspnea on exertion. Pt. states that at home he has been feeling " under the weather" for the last couple weeks and as if "something was brewing," when last night he spiked a fever to 102. Pt. called his PCP: Dr. Desai, who said he should come in to the ED. Pt. took a Tylenol decided to come in this AM after he found he was short of breath with minimal activity. Pt. endorses generalized body aches, SMITH , nausea, fevers and chills. Pt. endorses a sick contact of his "lady friend." Pt. states that he is up to date with all his vaccines. Pt. denies any diarrhea or constipation, polyuria or dysuria, sexual activity, productive cough or chest pain. Pt. has had an echo within the last year and was not reported to have significant worsening of cardiac function from the prior echo in 2016. 09/10/18 08:05 CBC, CMP, Mag, BCx. CXR, EKG, Troponin and Flu swab ordered. 09/10/18 11:25 Negative Flu Troponins + @ 0.11 EKG looks similar to old EKG, dually paced Case discussed with Dr. Desai Call made to Dr. Kidd's service. PMH s/p bio AVR and MV repair [facility] Dr. Prasad Ongoing medical problems [employer] AICD BIvi-pacing 2015 Dr. 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 2014 - Current Medication List Current Medications: Active Medications Acetaminophen (Tylenol -) 650 mg PO Q6H PRN PRN Reason: FEVER OR HEADACHE Allopurinol (Zyloprim -) 300 mg PO DAILY [facility] Last Admin: 09/18/18 09:01 Dose: 300 mg Alprazolam (Xanax -) 0.25 mg PO Q12H PRN PRN Reason: ANXIETY Last Admin: 09/18/18 09:01 Dose: 0.25 mg Aspirin (Ecotrin -) 81 mg PO DAILY [facility] Last Admin: 09/18/18 09:01 Dose: 81 mg Azithromycin (Zithromax -) 250 mg PO DAILY [facility] Last Admin: 09/18/18 09:01 Dose: 250 mg Clopidogrel Bisulfate (Plavix -) 75 mg PO DAILY [facility] Last Admin: 09/18/18 09:01 Dose: 75 mg Docusate Sodium (Colace -) 100 mg PO BID [facility] Last Admin: 09/18/18 09:01 Dose: 100 mg Furosemide (Lasix -) 40 mg PO DAILY [facility] Last Admin: 09/18/18 09:02 Dose: Not Given Levothyroxine Sodium (Synthroid -) 75 mcg PO DAILY@0700 [facility] Last Admin: 09/18/18 06:25 Dose: 75 mcg Rosuvastatin Calcium (Crestor -) 5 mg PO HS [facility] Last Admin: 09/17/18 21:12 Dose: 5 mg - Objective Vital Signs: Vital Signs Temperature 98.1 F 09/18/18 09:03 Pulse Rate 108 H 09/18/18 09:03 Respiratory Rate 18 09/18/18 09:03 Blood Pressure 85/56 L 09/18/18 09:03 O2 Sat by Pulse Oximetry (%) 95 09/18/18 08:02 Eyes: Yes: WNL, Conjunctiva Clear, EOM Intact HENT: Yes: WNL, Atraumatic, Normocephalic Neck: Yes: WNL, Supple, Trachea Midline Cardiovascular: Yes: WNL, Regular Rate and Rhythm Respiratory: Yes: WNL, Regular, CTA Bilaterally Gastrointestinal: Yes: WNL, Normal Bowel Sounds Genitourinary: Yes: WNL Musculoskeletal: Yes: WNL Extremities: Yes: WNL Edema: No Integumentary: Yes: WNL Neurological: Yes: WNL, Alert, Oriented ...Motor Strength: WNL Psychiatric: Yes: WNL Labs: CBC, BMP 09/16/18 06:00 09/18/18 06:30 Problem List - Problems (1) CHF (congestive heart failure) Code(s): I50.9 - HEART FAILURE, UNSPECIFIED Qualifiers: Heart failure type: biventricular Qualified Code(s): I50.82 - Biventricular heart failure (2) AICD (automatic cardioverter/defibrillator) present Code(s): Z95.810 - PRESENCE OF AUTOMATIC (IMPLANTABLE) CARDIAC DEFIBRILLATOR (3) Acute exacerbation of CHF (congestive heart failure) Code(s): I50.9 - HEART FAILURE, UNSPECIFIED (4) Acute exacerbation of congestive heart failure Code(s): I50.9 - HEART FAILURE, UNSPECIFIED Qualifiers: (5) Acute on chronic combined systolic and diastolic CHF, NYHA class 3 Code(s): I50.43 - ACUTE ON CHRONIC COMBINED SYSTOLIC AND DIASTOLIC HRT FAIL (6) Acute on chronic renal failure Code(s): N17.9 - ACUTE KIDNEY FAILURE, UNSPECIFIED; N18.9 - CHRONIC KIDNEY DISEASE, UNSPECIFIED Qualifiers: (7) Acute on chronic systolic (congestive) heart failure Code(s): I50.23 - ACUTE ON CHRONIC SYSTOLIC (CONGESTIVE) HEART FAILURE (8) Acute on chronic systolic and diastolic heart failure, NYHA class 1 Code(s): I50.43 - ACUTE ON CHRONIC COMBINED SYSTOLIC AND DIASTOLIC HRT FAIL (9) Angioneurotic edema Code(s): T78.3XXA - ANGIONEUROTIC EDEMA, INITIAL ENCOUNTER Qualifiers: (10) Anxiety and depression Code(s): F41.9 - ANXIETY DISORDER, UNSPECIFIED; F32.9 - MAJOR DEPRESSIVE DISORDER, SINGLE EPISODE, UNSPECIFIED (11) Aortic stenosis Code(s): I35.0 - NONRHEUMATIC AORTIC (VALVE) STENOSIS (12) Aortic valve replaced Code(s): Z95.2 - PRESENCE OF PROSTHETIC HEART VALVE (13) Arm swelling Code(s): M79.89 - OTHER SPECIFIED SOFT TISSUE DISORDERS (14) Arteriosclerotic heart disease (ASHD) Code(s): I25.10 - ATHSCL HEART DISEASE OF [place] CORONARY ARTERY W/O ANG PCTRS (15) Artificial cardiac pacemaker Code(s): Z95.0 - PRESENCE OF CARDIAC PACEMAKER (16) Aspirin long-term use Code(s): Z79.82 - [employer] DEHYDRATOR OPERATOR (CURRENT) USE OF ASPIRIN (17) CAD (coronary artery disease) Code(s): I25.10 - ATHSCL HEART DISEASE OF [place] CORONARY ARTERY W/O ANG PCTRS (18) Carotid artery disease Code(s): I77.9 - DISORDER OF ARTERIES AND ARTERIOLES, UNSPECIFIED (19) Carotid occlusion, left Code(s): I65.22 - OCCLUSION AND STENOSIS OF LEFT CAROTID ARTERY (20) Chronic renal insufficiency Code(s): N18.9 - CHRONIC KIDNEY DISEASE, UNSPECIFIED (21) DVT prophylaxis Code(s): [id number] - (22) Dehydration Code(s): E86.0 - DEHYDRATION (23) Dyspnea Code(s): R06.00 - DYSPNEA, UNSPECIFIED (24) Dysthymia (or depressive neurosis) Code(s): F34.1 - DYSTHYMIC DISORDER (25) Elevated troponin Code(s): R74.8 - ABNORMAL LEVELS OF OTHER SERUM ENZYMES (26) Epigastric abdominal pain Code(s): R10.13 - EPIGASTRIC PAIN (27) Fever Code(s): R50.9 - FEVER, UNSPECIFIED (28) Fluid collection (edema) in the arms, legs, hands and feet Code(s): R60.0 - LOCALIZED EDEMA (29) Gout Code(s): M10.9 - GOUT, UNSPECIFIED Qualifiers: Gout etiology: unspecified cause Presence of tophus: without tophus (30) Hyperlipidemia Code(s): E78.5 - HYPERLIPIDEMIA, UNSPECIFIED Qualifiers: (31) Hypertensive heart and chronic kidney disease with heart failure and stage 1 through stage 4 chronic kidney disease, or chronic kidney disease Code(s): I13.0 - HYP HRT & CHR KDNY DIS W HRT FAIL AND STG 1-4/UNSP CHR KDNY; I50.9 - HEART FAILURE, UNSPECIFIED; N18.9 - CHRONIC KIDNEY DISEASE, UNSPECIFIED (32) 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 Code(s): I13.10 - HYP HRT & CHR KDNY DIS W/O HRT FAIL, W STG 1-4/UNSP CHR KDNY (33) Hyperuricemia Code(s): E79.0 - HYPERURICEMIA W/O SIGNS OF INFLAM ARTHRIT AND TOPHACEOUS DIS (34) Hypomagnesemia Code(s): E83.42 - HYPOMAGNESEMIA (35) Hypothyroid Code(s): E03.9 - HYPOTHYROIDISM, UNSPECIFIED Qualifiers: Hypothyroidism type: acquired Qualified Code(s): E03.9 - Hypothyroidism, unspecified (36) Hypothyroid Code(s): E03.9 - HYPOTHYROIDISM, UNSPECIFIED Qualifiers: (37) ICD (implantable cardioverter-defibrillator) in place Code(s): Z95.810 - PRESENCE OF AUTOMATIC (IMPLANTABLE) CARDIAC DEFIBRILLATOR (38) Influenza A Code(s): J10.1 - FLU DUE TO OTH IDENT INFLUENZA VIRUS W OTH RESP MANIFEST (39) Leg swelling Code(s): M79.89 - OTHER SPECIFIED SOFT TISSUE DISORDERS (40) Lipid disorder Code(s): E78.9 - DISORDER OF LIPOPROTEIN METABOLISM, UNSPECIFIED (41) MGUS (monoclonal gammopathy of unknown significance) Code(s): D47.2 - MONOCLONAL GAMMOPATHY (42) Nosebleed Code(s): R04.0 - EPISTAXIS (43) PAD (peripheral artery disease) Code(s): I73.9 - PERIPHERAL VASCULAR DISEASE, UNSPECIFIED (44) Pneumonia Code(s): J18.9 - PNEUMONIA, UNSPECIFIED ORGANISM Qualifiers: (45) Presence of combination internal cardiac defibrillator (ICD) and pacemaker Code(s): Z95.810 - PRESENCE OF AUTOMATIC (IMPLANTABLE) CARDIAC DEFIBRILLATOR (46) Proteinuria Code(s): R80.9 - PROTEINURIA, UNSPECIFIED Qualifiers: (47) Renal insufficiency Code(s): N28.9 - DISORDER OF KIDNEY AND URETER, UNSPECIFIED (48) Sepsis Code(s): A41.9 - SEPSIS, UNSPECIFIED ORGANISM Qualifiers: (49) Status cardiac pacemaker Code(s): Z95.0 - PRESENCE OF CARDIAC PACEMAKER (50) Status post mitral valve annuloplasty Code(s): Z98.89 - OTHER SPECIFIED POSTPROCEDURAL STATES * DO NOT USE * (51) Thrombophlebitis Code(s): I80.9 - PHLEBITIS AND THROMBOPHLEBITIS OF UNSPECIFIED SITE (52) Transaminitis Code(s): R74.0 - NONSPEC ELEV OF LEVELS OF TRANSAMNS & LACTIC ACID DEHYDRGNSE Assessment/Plan - Problems (1) Systolic and diastolic CHF w/reduced LV function, NYHA class 4 Assessment/Plan: ECHO 09/13/18: severely reduced LVEF; moderate LVE; severe JAIRON and LAE; mod- severe TR (moderate pulmonary HTN); moderate MR; mild AR. Ideally, restart cavredilol, ACEI, spironolactone one by one if orthostatic vital signs improve (and, for ACEI and RAAS, if present renal dysfunction stabilizes) with fluids, salt, diet, physical therapy (presently on furosemide). F/u BUN/Cr, electrolytes, daily weight, Is and Os. Code(s): I50.40 - UNSP COMBINED SYSTOLIC AND DIASTOLIC (CONGESTIVE) HRT FAIL (2) Fever and chills Assessment/Plan: afebrile since admission. Code(s): R50.9 - FEVER, UNSPECIFIED (3) AICD (automatic cardioverter/defibrillator) present Assessment/Plan: f/u interrogation Code(s): Z95.810 - PRESENCE OF AUTOMATIC (IMPLANTABLE) CARDIAC DEFIBRILLATOR (4) Anxiety and depression Assessment/Plan: on alprazolam. Code(s): F41.9 - ANXIETY DISORDER, UNSPECIFIED; F32.9 - MAJOR DEPRESSIVE DISORDER, SINGLE EPISODE, UNSPECIFIED (5) Aortic valve replaced Assessment/Plan: ECHO results noted (AoV well-seated; mild AR; cannot r/o significant ). Code(s): Z95.2 - PRESENCE OF PROSTHETIC HEART VALVE (6) CAD (coronary artery disease) Assessment/Plan: On ASA and clopidogrel (f/u platelets: borderline low on admission; may have to stop at least one antiplatelet--one year post-NSTEMI, ?no stent). Code(s): I25.10 - ATHSCL HEART DISEASE OF [place] CORONARY ARTERY W/O ANG PCTRS (7) Gout Assessment/Plan: on Xyloprim. Code(s): M10.9 - GOUT, UNSPECIFIED Qualifiers: Gout etiology: unspecified cause Presence of tophus: without tophus (8) Hyperlipidemia Assessment/Plan: LDL cholesterol 66 mg/dL. On statin. Code(s): E78.5 - HYPERLIPIDEMIA, UNSPECIFIED Qualifiers: (9) Hypothyroid Assessment/Plan: on Synthroid. TSH WNL. Code(s): E03.9 - HYPOTHYROIDISM, UNSPECIFIED Qualifiers: Hypothyroidism type: acquired Qualified Code(s): E03.9 - Hypothyroidism, unspecified (10) Status post mitral valve annuloplasty Assessment/Plan: FECHO resutls noted: moderate MR. Code(s): Z98.89 - OTHER SPECIFIED POSTPROCEDURAL STATES * DO NOT USE * (11) Elevated troponin Assessment/Plan: Hx NSTEMI 08/2017 mild chronic elevation of TNI since at least 2015; severe systolic LV dysfunction a likely contributer. EKG: AV paced rhythm Code(s): R74.8 - ABNORMAL LEVELS OF OTHER SERUM ENZYMES (12) Chronic renal failure Assessment/Plan: f/u with jointer submarine cable. Furosemide may have to be reduced or stopped. Code(s): N18.9 - CHRONIC KIDNEY DISEASE, UNSPECIFIED (13) Orthostatic dizziness Assessment/Plan: Encourage fluids (but keep maximum 1.5 liters/day, given severe LV dysfunction). On furosemide. Proper diet, including salt (within CHF guidelines). Awarenes of physical surroundings; care in standing; physical therapy/ strengthening exercises. Code(s): R42 - DIZZINESS AND GIDDINESS
[2018-09-18] MEDS ORDERED: SODIUM CHLORIDE 250 ML IV STA (09:53)
--- NOTE | 2018-09-18 13:50 | PN ---
Progress Note (short form) - Note Progress Note: Active Medications Acetaminophen (Tylenol -) 650 mg PO Q6H PRN PRN Reason: FEVER OR HEADACHE Allopurinol (Zyloprim -) 300 mg PO DAILY [facility] Last Admin: 09/18/18 09:01 Dose: 300 mg Alprazolam (Xanax -) 0.25 mg PO Q12H PRN PRN Reason: ANXIETY Last Admin: 09/18/18 09:01 Dose: 0.25 mg Aspirin (Ecotrin -) 81 mg PO DAILY [facility] Last Admin: 09/18/18 09:01 Dose: 81 mg Azithromycin (Zithromax -) 250 mg PO DAILY [facility] Last Admin: 09/18/18 09:01 Dose: 250 mg Clopidogrel Bisulfate (Plavix -) 75 mg PO DAILY [facility] Last Admin: 09/18/18 09:01 Dose: 75 mg Docusate Sodium (Colace -) 100 mg PO BID [facility] Last Admin: 09/18/18 09:01 Dose: 100 mg Furosemide (Lasix -) 40 mg PO DAILY [facility] Last Admin: 09/18/18 09:02 Dose: Not Given Levothyroxine Sodium (Synthroid -) 75 mcg PO DAILY@0700 [facility] Last Admin: 09/18/18 06:25 Dose: 75 mcg Rosuvastatin Calcium (Crestor -) 5 mg PO HS [facility] Last Admin: 09/17/18 21:12 Dose: 5 mg Laboratory Results - last 24 hr 09/18/18 09/18/18 06:30 06:30 ESR 42 H Sodium 139 Potassium 4.2 Chloride 107 Carbon Dioxide 23 Anion Gap 9 BUN 52 H Creatinine 2.1 H Creat Clearance w eGFR 30.39 Random Glucose 118 H Calcium 8.4 L Creatine Kinase 38 Troponin I 0.10 H Vital Signs Temperature 98.1 F 09/18/18 09:03 Pulse Rate 108 H 09/18/18 09:03 Respiratory Rate 18 09/18/18 09:03 Blood Pressure 85/56 L 09/18/18 09:03 O2 Sat by Pulse Oximetry (%) 95 09/18/18 08:02 CC: lightheaded when standing and still has a prod cough; has felt chills/sweats ``````````````````````````` skin--NL color heart--RR abd--benign lungs--clear but distant ext--no edema; IV site clear neuro--fully alert; coherent w/o focal deficits ```````````````````````` CXR----basilar changes as shown `````````````````````````````````````````` Summ > URI--cough productive; CXR reveals basilar changes (unclear cause)PLAN: cont zithromax; Get CT of chest > Hypotension--with rise of renal function tests; ? diminished renal perfusion w or w/o CHF PLAN: hold Lasix until CT is done > anxiety--slept better w/o SSRI > CHF--based on high BNP; recent CXR basilar changes > elevated Trop--persistent but lower, possible 2nd to LVdysf > bacturia--no dysuria; repeat Urine C& S show bact count under 10K; he has no sx ~~~~~~~~~~~~~~~~~~~~~~~~ Dr Desai Problem List - Problems (1) Fever and chills Code(s): R50.9 - FEVER, UNSPECIFIED (2) Hypertensive heart and chronic kidney disease with heart failure and stage 1 through stage 4 chronic kidney disease, or chronic kidney disease Code(s): I13.0 - HYP HRT & CHR KDNY DIS W HRT FAIL AND STG 1-4/UNSP CHR KDNY; I50.9 - HEART FAILURE, UNSPECIFIED; N18.9 - CHRONIC KIDNEY DISEASE, UNSPECIFIED (3) Elevated troponin Code(s): R74.8 - ABNORMAL LEVELS OF OTHER SERUM ENZYMES (4) Lipid disorder Code(s): E78.9 - DISORDER OF LIPOPROTEIN METABOLISM, UNSPECIFIED (5) Presence of combination internal cardiac defibrillator (ICD) and pacemaker Code(s): Z95.810 - PRESENCE OF AUTOMATIC (IMPLANTABLE) CARDIAC DEFIBRILLATOR (6) Gout Code(s): M10.9 - GOUT, UNSPECIFIED Qualifiers: Gout etiology: unspecified cause Presence of tophus: without tophus (7) Angioneurotic edema Code(s): T78.3XXA - ANGIONEUROTIC EDEMA, INITIAL ENCOUNTER Qualifiers: (8) Aortic valve replaced Code(s): Z95.2 - PRESENCE OF PROSTHETIC HEART VALVE (9) Hypothyroid Code(s): E03.9 - HYPOTHYROIDISM, UNSPECIFIED Qualifiers: Hypothyroidism type: acquired Qualified Code(s): E03.9 - Hypothyroidism, unspecified (10) Anxiety and depression Code(s): F41.9 - ANXIETY DISORDER, UNSPECIFIED; F32.9 - MAJOR DEPRESSIVE DISORDER, SINGLE EPISODE, UNSPECIFIED (11) PAD (peripheral artery disease) Code(s): I73.9 - PERIPHERAL VASCULAR DISEASE, UNSPECIFIED (12) Encounter for long-term use of antiplatelets/antithrombotics Code(s): Z79.02 - RN DOCUMENTATION (CURRENT) USE OF ANTITHROMBOTICS/ANTIPLATELETS
[2018-09-18] MEDS: ROSUVASTATIN CA 5 MG TABLET (FP) PO SCH (21:07)
[2018-09-19] MEDS: LEVOTHYROXINE NA 75 MCG TABLET (FP) PO SCH (06:30)
[2018-09-19 07:36] LABS: ANION GAP 10 MMOL/L (8-16); BLOOD UREA NITROGEN 46 mg/dL (7-18); CALCIUM 8.5 mg/dL (8.5-10.1); CHLORIDE 107 mmol/L (98-107); CO2 22 mmol/L (21-32); CREATININE 1.8 mg/dL (0.55-1.3); GLUCOSE,RANDOM 81 mg/dL (74-106); POTASSIUM 4.5 mmol/L (3.5-5.1); SODIUM 138 mmol/L (136-145)
[2018-09-19] MEDS: CLOPIDOGREL BISULFATE 75 MG TABLET (FP) PO SCH (09:55)
[2018-09-19] MEDS: ASPIRIN COATED 81 MG TABLET.EC PO SCH (09:55)
[2018-09-19] MEDS: DOCUSATE SODIUM 100 MG CAPSULE (FP) PO SCH ×2 (09:55→21:38)
[2018-09-19] MEDS: AZITHROMYCIN 250 MG TABLET PO SCH (09:55)
[2018-09-19] MEDS: ALLOPURINOL 300 MG TABLET (FP) PO SCH (09:55)
[2018-09-19] MEDS: FUROSEMIDE 40 MG TABLET (FP) PO SCH (09:56)
[2018-09-19 11:11] VITALS: BMI 27.3
[2018-09-19] MEDS: ALBUTEROL SO4 0.042% IH SOL 1.25 MG/3 ML VIAL.NEB NEB SCH ×2 (13:15→16:15)
--- NOTE | 2018-09-19 17:02 | PN ---
Progress Note (short form) - Note Progress Note: Current Medications Acetaminophen (Tylenol -) 650 mg PO Q6H PRN PRN Reason: FEVER OR HEADACHE Albuterol Sulfate (Ventolin 0.042trength) -) 1 amp NEB RTID [facility] Last Admin: 09/19/18 16:15 Dose: Not Given Allopurinol (Zyloprim -) 300 mg PO DAILY [facility] Last Admin: 09/19/18 09:55 Dose: 300 mg Alprazolam (Xanax -) 0.25 mg PO Q12H PRN PRN Reason: ANXIETY Last Admin: 09/18/18 09:01 Dose: 0.25 mg Aspirin (Ecotrin -) 81 mg PO DAILY [facility] Last Admin: 09/19/18 09:55 Dose: 81 mg Azithromycin (Zithromax -) 250 mg PO DAILY [facility] Last Admin: 09/19/18 09:55 Dose: 250 mg Clopidogrel Bisulfate (Plavix -) 75 mg PO DAILY [facility] Last Admin: 09/19/18 09:55 Dose: 75 mg Docusate Sodium (Colace -) 100 mg PO BID [facility] Last Admin: 09/19/18 09:55 Dose: 100 mg Furosemide (Lasix -) 40 mg PO DAILY [facility] Last Admin: 09/19/18 09:56 Dose: Not Given Levothyroxine Sodium (Synthroid -) 75 mcg PO DAILY@0700 [facility] Last Admin: 09/19/18 06:30 Dose: 75 mcg Rosuvastatin Calcium (Crestor -) 5 mg PO HS [facility] Last Admin: 09/18/18 21:07 Dose: 5 mg Laboratory Results - last 24 hr 09/19/18 05:30 Sodium 138 Potassium 4.5 Chloride 107 Carbon Dioxide 22 Anion Gap 10 BUN 46 H Creatinine 1.8 H Creat Clearance w eGFR 36.30 Random Glucose 81 Calcium 8.5 Creatine Kinase 34 Troponin I 0.09 H Vital Signs Temperature 98.3 F 09/19/18 15:00 Pulse Rate 78 09/19/18 15:00 Respiratory Rate 18 09/19/18 15:00 Blood Pressure 103/61 09/19/18 15:00 O2 Sat by Pulse Oximetry (%) 96 09/19/18 10:00 CC: lightheaded when standing; developed SMITH when ambulating w/ PT ``````````````````````````` skin--NL color heart--RR abd--benign lungs--clear but distant ext--no edema; IV site clear neuro--fully alert; coherent w/o focal deficits ```````````````````````` CT chest--Bilat small pleural effsions with atelectatic changes `````````````````````````````````````````` Summ > URI--cough productive; Ct shows bilat effusions with atelactasis and cannot r/ o infilrtate PLAN: cont zithromax; add Rx neb tx; will add Pulmicort > Hypotension--Somewhat better today, but still symptomatic, became SOB upon walking; oximetry post amb was "good".: PLAN: resume lasix at lower dose > anxiety--is Off the SSRI (at his request) > CHF--was Tx'd for ACUTE failure on admission w/IV lasix based on high BNP; recent CXR basilar changes which seem to be 2nd atelecatsis but also has bilat effusions (small). PLAN: will resume PO lasix > elevated Trop--persistent but lower, possible 2nd to LVdysf; check daily > bacturia--no dysuria; repeat Urine C& S show bact count under 10K; he has no sx ~~~~~~~~~~~~~~~~~~~~~~~~ Dr Desai Problem List - Problems (1) Fever and chills Code(s): R50.9 - FEVER, UNSPECIFIED (2) Hypertensive heart and chronic kidney disease with heart failure and stage 1 through stage 4 chronic kidney disease, or chronic kidney disease Code(s): I13.0 - HYP HRT & CHR KDNY DIS W HRT FAIL AND STG 1-4/UNSP CHR KDNY; I50.9 - HEART FAILURE, UNSPECIFIED; N18.9 - CHRONIC KIDNEY DISEASE, UNSPECIFIED (3) Elevated troponin Code(s): R74.8 - ABNORMAL LEVELS OF OTHER SERUM ENZYMES (4) Lipid disorder Code(s): E78.9 - DISORDER OF LIPOPROTEIN METABOLISM, UNSPECIFIED (5) Presence of combination internal cardiac defibrillator (ICD) and pacemaker Code(s): Z95.810 - PRESENCE OF AUTOMATIC (IMPLANTABLE) CARDIAC DEFIBRILLATOR (6) Gout Code(s): M10.9 - GOUT, UNSPECIFIED Qualifiers: Gout etiology: unspecified cause Presence of tophus: without tophus (7) Angioneurotic edema Code(s): T78.3XXA - ANGIONEUROTIC EDEMA, INITIAL ENCOUNTER Qualifiers: (8) Aortic valve replaced Code(s): Z95.2 - PRESENCE OF PROSTHETIC HEART VALVE (9) Hypothyroid Code(s): E03.9 - HYPOTHYROIDISM, UNSPECIFIED Qualifiers: Hypothyroidism type: acquired Qualified Code(s): E03.9 - Hypothyroidism, unspecified (10) Anxiety and depression Code(s): F41.9 - ANXIETY DISORDER, UNSPECIFIED; F32.9 - MAJOR DEPRESSIVE DISORDER, SINGLE EPISODE, UNSPECIFIED (11) PAD (peripheral artery disease) Code(s): I73.9 - PERIPHERAL VASCULAR DISEASE, UNSPECIFIED (12) Encounter for long-term use of antiplatelets/antithrombotics Code(s): Z79.02 - INTERMEDIATE (CURRENT) USE OF ANTITHROMBOTICS/ANTIPLATELETS
[2018-09-19] MEDS ORDERED: FUROSEMIDE 20 MG TABLET (FP) PO ONE (17:08)
[2018-09-19] MEDS ORDERED: BUDESONIDE 0.5 MG/2 ML INH SUSP VIAL NEB ONE (20:10)
[2018-09-19] MEDS: BUDESONIDE 0.25 MG/2ML INH SUSP VIAL NEB SCH (20:15)
[2018-09-19] MEDS: ALBUTEROL SO4 0.083% IH SOL 2.5 MG/3 ML VIAL.NEB. NEB SCH (21:05)
[2018-09-19] MEDS: guaiFENesin 200 MG/10 ML 10 ML UNIT-DOSE CUPS PO SCH (21:38)
[2018-09-19] MEDS: ROSUVASTATIN CA 5 MG TABLET (FP) PO SCH (21:39)
--- NOTE | 2018-09-19 22:11 | PN ---
Progress Note, Physician Chief Complaint: Pt A&Ox3; walking slowly in hallway (with therapists' assistance); not dizzy. History of Present Illness: Pt. is an 83 y.o. white man w/ PMHx. of HTN, systolic (severely reduced LVEF)/ diastolic CHF, s/p cardiac valvae replacements, HTN, CAD (NSTEMI 08/2017), PAD( left ICA completely occluded), Gout, OA, TIA, Hypothyroidism, and anxiety, who presents to the ED with fever, nausea, body aches and pain, rhinorrhea and increased dyspnea on exertion. Pt. states that at home he has been feeling " under the weather" for the last couple weeks and as if "something was brewing," when last night he spiked a fever to 102. Pt. called his PCP: Dr. Desai, who said he should come in to the ED. Pt. took a Tylenol decided to come in this AM after he found he was short of breath with minimal activity. Pt. endorses generalized body aches, SMITH, nausea, fevers and chills. Pt. endorses a sick contact of his "lady friend." Pt. states that he is up to date with all his vaccines. Pt. denies any diarrhea or constipation, polyuria or dysuria, sexual activity, productive cough or chest pain. s/p bio AVR and MV repair [facility] Dr. Prasad Ongoing medical problems [employer] AICD BIvi-pacing 2015 Dr. 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 2014 - Current Medication List Current Medications: Active Medications Acetaminophen (Tylenol -) 650 mg PO Q6H PRN PRN Reason: FEVER OR HEADACHE Albuterol Sulfate (Ventolin 0.083% Nebulizer Soln -) 1 amp NEB BID [facility] Last Admin: 09/19/18 21:05 Dose: 1 amp Allopurinol (Zyloprim -) 300 mg PO DAILY [facility] Last Admin: 09/19/18 09:55 Dose: 300 mg Alprazolam (Xanax -) 0.25 mg PO Q12H PRN PRN Reason: ANXIETY Last Admin: 09/18/18 09:01 Dose: 0.25 mg Aspirin (Ecotrin -) 81 mg PO DAILY [facility] Last Admin: 09/19/18 09:55 Dose: 81 mg Azithromycin (Zithromax -) 250 mg PO DAILY [facility] Last Admin: 09/19/18 09:55 Dose: 250 mg Budesonide (Pulmicort 0.25 Mg Nebulizer -) 1 amp NEB RBID [facility] Last Admin: 09/19/18 20:15 Dose: 1 amp Clopidogrel Bisulfate (Plavix -) 75 mg PO DAILY [facility] Last Admin: 09/19/18 09:55 Dose: 75 mg Docusate Sodium (Colace -) 100 mg PO BID [facility] Last Admin: 09/19/18 21:38 Dose: 100 mg Guaifenesin (Robitussin -) 10 ml PO BID [facility] Last Admin: 09/19/18 21:38 Dose: 10 ml Levothyroxine Sodium (Synthroid -) 75 mcg PO DAILY@0700 [facility] Last Admin: 09/19/18 06:30 Dose: 75 mcg Rosuvastatin Calcium (Crestor -) 5 mg PO HS [facility] Last Admin: 09/19/18 21:39 Dose: 5 mg - Objective Vital Signs: Vital Signs Temperature 97.4 F L 09/19/18 18:00 Pulse Rate 77 09/19/18 18:00 Respiratory Rate 19 09/19/18 18:00 Blood Pressure 99/46 L 09/19/18 18:00 O2 Sat by Pulse Oximetry (%) 96 09/19/18 10:00 Constitutional: Yes: Calm Eyes: Yes: WNL HENT: Yes: WNL Neck: Yes: WNL Cardiovascular: Yes: Murmur, S1 (split), S2 Respiratory: Yes: Diminished Gastrointestinal: Yes: Soft ...Rectal Exam: Yes: Deferred Genitourinary: Yes: Anuria Breast(s): Yes: WNL Musculoskeletal: Yes: Muscle Weakness Extremities: Yes: Cool Edema: Yes Edema: LLE: Trace, RLE: Trace (pt wears compression stockings to minimize chornic bilateral leg swelling) Peripheral Pulses WNL: Yes Integumentary: Yes: WNL Neurological: Yes: Alert, Oriented, Weakness Psychiatric: Yes: Other (anxeity) Labs: CBC, BMP 09/16/18 06:00 09/19/18 05:30 Abnormal Lab Results 09/19/18 05:30 BUN 46 H Creatinine 1.8 H Troponin I 0.09 H - ....Imaging Cat Scan: Image Reviewed Problem List - Problems (1) Systolic and diastolic CHF w/reduced LV function, NYHA class 4 Assessment/Plan: CT chest: minimal-small bilateral pleural effusion; enlarged mediastinal/ parathyroid lymph nodes. ECHO 09/13/18: severely reduced LVEF; moderate LVE; severe JAIRON and LAE; mod- severe TR (moderate pulmonary HTN); moderate MR; mild AR. Ideally, restart cavredilol, ACEI, spironolactone one by one if orthostatic vital signs improve (and, for ACEI and RAAS, if present renal dysfunction stabilizes) with fluids, salt, diet, physical therapy. On furosemide prn. F/u BUN/Cr, electrolytes, Is and Os. No significant weight change since admission. Code(s): I50.40 - UNSP COMBINED SYSTOLIC AND DIASTOLIC (CONGESTIVE) HRT FAIL (2) AICD (automatic cardioverter/defibrillator) present Assessment/Plan: f/u interrogation Code(s): Z95.810 - PRESENCE OF AUTOMATIC (IMPLANTABLE) CARDIAC DEFIBRILLATOR (3) Anxiety and depression Assessment/Plan: on alprazolam. Code(s): F41.9 - ANXIETY DISORDER, UNSPECIFIED; F32.9 - MAJOR DEPRESSIVE DISORDER, SINGLE EPISODE, UNSPECIFIED (4) Aortic valve replaced Assessment/Plan: ECHO results noted (AoV well-seated; mild AR; cannot r/o significant ). Code(s): Z95.2 - PRESENCE OF PROSTHETIC HEART VALVE (5) CAD (coronary artery disease) Assessment/Plan: On ASA and clopidogrel; platelets low-normal. Code(s): I25.10 - ATHSCL HEART DISEASE OF [place] CORONARY ARTERY W/O ANG PCTRS (6) Gout Assessment/Plan: on Xyloprim. Code(s): M10.9 - GOUT, UNSPECIFIED Qualifiers: Gout etiology: unspecified cause Presence of tophus: without tophus (7) Hyperlipidemia Assessment/Plan: LDL cholesterol 66 mg/dL. continue statin. Code(s): E78.5 - HYPERLIPIDEMIA, UNSPECIFIED Qualifiers: (8) Hypothyroid Assessment/Plan: on Synthroid. TSH WNL. Code(s): E03.9 - HYPOTHYROIDISM, UNSPECIFIED Qualifiers: Hypothyroidism type: acquired Qualified Code(s): E03.9 - Hypothyroidism, unspecified (9) Status post mitral valve annuloplasty Assessment/Plan: FECHO results noted: moderate MR. Code(s): Z98.89 - OTHER SPECIFIED POSTPROCEDURAL STATES * DO NOT USE * (10) Elevated troponin Assessment/Plan: Hx NSTEMI 08/2017 mild chronic elevation of TNI since at least 2015; severe systolic LV dysfunction a likely contributer, as well as underlying CAD. EKG: AV paced rhythm Code(s): R74.8 - ABNORMAL LEVELS OF OTHER SERUM ENZYMES (11) Chronic renal failure Assessment/Plan: Off furosemide presently. Code(s): N18.9 - CHRONIC KIDNEY DISEASE, UNSPECIFIED (12) Orthostatic dizziness Assessment/Plan: Encourage fluids (but keep maximum 1.5 liters/day, given severe LV dysfunction). On furosemide prn. Proper diet, including salt (within CHF guidelines). Awareness of physical surroundings; care in standing; continue physical therapy/ strengthening exercises. Code(s): R42 - DIZZINESS AND GIDDINESS
[2018-09-20] MEDS: ALPRAZolam 0.25 MG TABLET PO PRN (04:10)
[2018-09-20] MEDS: LEVOTHYROXINE NA 75 MCG TABLET (FP) PO SCH (06:16)
[2018-09-20] MEDS: BUDESONIDE 0.25 MG/2ML INH SUSP VIAL NEB SCH (07:54)
[2018-09-20] MEDS: ALBUTEROL SO4 0.083% IH SOL 2.5 MG/3 ML VIAL.NEB. NEB SCH (09:54)
[2018-09-20] MEDS: CLOPIDOGREL BISULFATE 75 MG TABLET (FP) PO SCH (10:38)
[2018-09-20] MEDS: ALLOPURINOL 300 MG TABLET (FP) PO SCH (10:38)
[2018-09-20] MEDS: AZITHROMYCIN 250 MG TABLET PO SCH (10:38)
[2018-09-20] MEDS: DOCUSATE SODIUM 100 MG CAPSULE (FP) PO SCH (10:38)
[2018-09-20] MEDS: guaiFENesin 200 MG/10 ML 10 ML UNIT-DOSE CUPS PO SCH (10:38)
[2018-09-20] MEDS: ASPIRIN COATED 81 MG TABLET.EC PO SCH (10:38)
--- NOTE | 2018-09-20 10:53 | PN ---
Progress Note, Physician History of Present Illness: Pt. is an 83 y.o. M w/ PMHx. of HTN, CHF, HTN, CAD, PAD(left ICA completely occluded), Gout, OA, Hypothyroidism and anxiety presents to the ED with fever, nausea, body aches and pain, rhinorrhea and increased dyspnea on exertion. Pt. states that at home he has been feeling " under the weather" for the last couple weeks and as if "something was brewing," when last night he spiked a fever to 102. Pt. called his PCP: Dr. Desai, who said he should come in to the ED. Pt. took a Tylenol decided to come in this AM after he found he was short of breath with minimal activity. Pt. endorses generalized body aches, SMITH , nausea, fevers and chills. Pt. endorses a sick contact of his "lady friend." Pt. states that he is up to date with all his vaccines. Pt. denies any diarrhea or constipation, polyuria or dysuria, sexual activity, productive cough or chest pain. Pt. has had an echo within the last year and was not reported to have significant worsening of cardiac function from the prior echo in 2016. 09/10/18 08:05 CBC, CMP, Mag, BCx. CXR, EKG, Troponin and Flu swab ordered. 09/10/18 11:25 Negative Flu Troponins + @ 0.11 EKG looks similar to old EKG, dually paced Case discussed with Dr. Desai Call made to Dr. Kidd's service. PMH s/p bio AVR and MV repair [facility] Dr. Prasad Ongoing medical problems [employer] AICD BIvi-pacing 2015 Dr. 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 2014 - Current Medication List Current Medications: Active Medications Acetaminophen (Tylenol -) 650 mg PO Q6H PRN PRN Reason: FEVER OR HEADACHE Albuterol Sulfate (Ventolin 0.083% Nebulizer Soln -) 1 amp NEB BID [facility] Last Admin: 09/20/18 09:54 Dose: Not Given Allopurinol (Zyloprim -) 300 mg PO DAILY [facility] Last Admin: 09/20/18 10:38 Dose: 300 mg Alprazolam (Xanax -) 0.25 mg PO Q12H PRN PRN Reason: ANXIETY Last Admin: 09/20/18 04:10 Dose: 0.25 mg Aspirin (Ecotrin -) 81 mg PO DAILY [facility] Last Admin: 09/20/18 10:38 Dose: 81 mg Azithromycin (Zithromax -) 250 mg PO DAILY [facility] Last Admin: 09/20/18 10:38 Dose: 250 mg Budesonide (Pulmicort 0.25 Mg Nebulizer -) 1 amp NEB RBID [facility] Last Admin: 09/20/18 07:54 Dose: Not Given Clopidogrel Bisulfate (Plavix -) 75 mg PO DAILY [facility] Last Admin: 09/20/18 10:38 Dose: 75 mg Docusate Sodium (Colace -) 100 mg PO BID [facility] Last Admin: 09/20/18 10:38 Dose: 100 mg Guaifenesin (Robitussin -) 10 ml PO BID [facility] Last Admin: 09/20/18 10:38 Dose: 10 ml Levothyroxine Sodium (Synthroid -) 75 mcg PO DAILY@0700 [facility] Last Admin: 09/20/18 06:16 Dose: 75 mcg Rosuvastatin Calcium (Crestor -) 5 mg PO HS [facility] Last Admin: 09/19/18 21:39 Dose: 5 mg - Objective Vital Signs: Vital Signs Temperature 97.3 F L 09/20/18 10:45 Pulse Rate 78 09/20/18 10:45 Respiratory Rate 18 09/20/18 10:45 Blood Pressure 116/59 L 09/20/18 10:45 O2 Sat by Pulse Oximetry (%) 97 09/19/18 21:00 Eyes: Yes: WNL, Conjunctiva Clear, EOM Intact HENT: Yes: WNL, Atraumatic, Normocephalic Neck: Yes: WNL, Supple, Trachea Midline Cardiovascular: Yes: WNL, Regular Rate and Rhythm Respiratory: Yes: WNL, Regular, CTA Bilaterally Gastrointestinal: Yes: WNL, Normal Bowel Sounds Genitourinary: Yes: WNL Musculoskeletal: Yes: WNL Extremities: Yes: WNL Edema: No Integumentary: Yes: WNL Neurological: Yes: WNL, Alert, Oriented ...Motor Strength: WNL Psychiatric: Yes: WNL Labs: CBC, BMP 09/16/18 06:00 09/19/18 05:30 Problem List - Problems (1) CHF (congestive heart failure) Code(s): I50.9 - HEART FAILURE, UNSPECIFIED Qualifiers: Heart failure type: biventricular Qualified Code(s): I50.82 - Biventricular heart failure (2) AICD (automatic cardioverter/defibrillator) present Code(s): Z95.810 - PRESENCE OF AUTOMATIC (IMPLANTABLE) CARDIAC DEFIBRILLATOR (3) Acute exacerbation of CHF (congestive heart failure) Code(s): I50.9 - HEART FAILURE, UNSPECIFIED (4) Acute exacerbation of congestive heart failure Code(s): I50.9 - HEART FAILURE, UNSPECIFIED Qualifiers: (5) Acute on chronic combined systolic and diastolic CHF, NYHA class 3 Code(s): I50.43 - ACUTE ON CHRONIC COMBINED SYSTOLIC AND DIASTOLIC HRT FAIL (6) Acute on chronic renal failure Code(s): N17.9 - ACUTE KIDNEY FAILURE, UNSPECIFIED; N18.9 - CHRONIC KIDNEY DISEASE, UNSPECIFIED Qualifiers: (7) Acute on chronic systolic (congestive) heart failure Code(s): I50.23 - ACUTE ON CHRONIC SYSTOLIC (CONGESTIVE) HEART FAILURE (8) Acute on chronic systolic and diastolic heart failure, NYHA class 1 Code(s): I50.43 - ACUTE ON CHRONIC COMBINED SYSTOLIC AND DIASTOLIC HRT FAIL (9) Angioneurotic edema Code(s): T78.3XXA - ANGIONEUROTIC EDEMA, INITIAL ENCOUNTER Qualifiers: (10) Anxiety and depression Code(s): F41.9 - ANXIETY DISORDER, UNSPECIFIED; F32.9 - MAJOR DEPRESSIVE DISORDER, SINGLE EPISODE, UNSPECIFIED (11) Aortic stenosis Code(s): I35.0 - NONRHEUMATIC AORTIC (VALVE) STENOSIS (12) Aortic valve replaced Code(s): Z95.2 - PRESENCE OF PROSTHETIC HEART VALVE (13) Arm swelling Code(s): M79.89 - OTHER SPECIFIED SOFT TISSUE DISORDERS (14) Arteriosclerotic heart disease (ASHD) Code(s): I25.10 - ATHSCL HEART DISEASE OF [place] CORONARY ARTERY W/O ANG PCTRS (15) Artificial cardiac pacemaker Code(s): Z95.0 - PRESENCE OF CARDIAC PACEMAKER (16) Aspirin long-term use Code(s): Z79.82 - LONGTERM (CURRENT) USE OF ASPIRIN (17) CAD (coronary artery disease) Code(s): I25.10 - ATHSCL HEART DISEASE OF [place] CORONARY ARTERY W/O ANG PCTRS (18) Carotid artery disease Code(s): I77.9 - DISORDER OF ARTERIES AND ARTERIOLES, UNSPECIFIED (19) Carotid occlusion, left Code(s): I65.22 - OCCLUSION AND STENOSIS OF LEFT CAROTID ARTERY (20) Chronic renal insufficiency Code(s): N18.9 - CHRONIC KIDNEY DISEASE, UNSPECIFIED (21) DVT prophylaxis Code(s): [id number] - (22) Dehydration Code(s): E86.0 - DEHYDRATION (23) Dyspnea Code(s): R06.00 - DYSPNEA, UNSPECIFIED (24) Dysthymia (or depressive neurosis) Code(s): F34.1 - DYSTHYMIC DISORDER (25) Elevated troponin Code(s): R74.8 - ABNORMAL LEVELS OF OTHER SERUM ENZYMES (26) Epigastric abdominal pain Code(s): R10.13 - EPIGASTRIC PAIN (27) Fever Code(s): R50.9 - FEVER, UNSPECIFIED (28) Fluid collection (edema) in the arms, legs, hands and feet Code(s): R60.0 - LOCALIZED EDEMA (29) Gout Code(s): M10.9 - GOUT, UNSPECIFIED Qualifiers: Gout etiology: unspecified cause Presence of tophus: without tophus (30) Hyperlipidemia Code(s): E78.5 - HYPERLIPIDEMIA, UNSPECIFIED Qualifiers: (31) Hypertensive heart and chronic kidney disease with heart failure and stage 1 through stage 4 chronic kidney disease, or chronic kidney disease Code(s): I13.0 - HYP HRT & CHR KDNY DIS W HRT FAIL AND STG 1-4/UNSP CHR KDNY; I50.9 - HEART FAILURE, UNSPECIFIED; N18.9 - CHRONIC KIDNEY DISEASE, UNSPECIFIED (32) 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 Code(s): I13.10 - HYP HRT & CHR KDNY DIS W/O HRT FAIL, W STG 1-4/UNSP CHR KDNY (33) Hyperuricemia Code(s): E79.0 - HYPERURICEMIA W/O SIGNS OF INFLAM ARTHRIT AND TOPHACEOUS DIS (34) Hypomagnesemia Code(s): E83.42 - HYPOMAGNESEMIA (35) Hypothyroid Code(s): E03.9 - HYPOTHYROIDISM, UNSPECIFIED Qualifiers: Hypothyroidism type: acquired Qualified Code(s): E03.9 - Hypothyroidism, unspecified (36) Hypothyroid Code(s): E03.9 - HYPOTHYROIDISM, UNSPECIFIED Qualifiers: (37) ICD (implantable cardioverter-defibrillator) in place Code(s): Z95.810 - PRESENCE OF AUTOMATIC (IMPLANTABLE) CARDIAC DEFIBRILLATOR (38) Influenza A Code(s): J10.1 - FLU DUE TO OTH IDENT INFLUENZA VIRUS W OTH RESP MANIFEST (39) Leg swelling Code(s): M79.89 - OTHER SPECIFIED SOFT TISSUE DISORDERS (40) Lipid disorder Code(s): E78.9 - DISORDER OF LIPOPROTEIN METABOLISM, UNSPECIFIED (41) MGUS (monoclonal gammopathy of unknown significance) Code(s): D47.2 - MONOCLONAL GAMMOPATHY (42) Nosebleed Code(s): R04.0 - EPISTAXIS (43) PAD (peripheral artery disease) Code(s): I73.9 - PERIPHERAL VASCULAR DISEASE, UNSPECIFIED (44) Pneumonia Code(s): J18.9 - PNEUMONIA, UNSPECIFIED ORGANISM Qualifiers: (45) Presence of combination internal cardiac defibrillator (ICD) and pacemaker Code(s): Z95.810 - PRESENCE OF AUTOMATIC (IMPLANTABLE) CARDIAC DEFIBRILLATOR (46) Proteinuria Code(s): R80.9 - PROTEINURIA, UNSPECIFIED Qualifiers: (47) Renal insufficiency Code(s): N28.9 - DISORDER OF KIDNEY AND URETER, UNSPECIFIED (48) Sepsis Code(s): A41.9 - SEPSIS, UNSPECIFIED ORGANISM Qualifiers: (49) Status cardiac pacemaker Code(s): Z95.0 - PRESENCE OF CARDIAC PACEMAKER (50) Status post mitral valve annuloplasty Code(s): Z98.89 - OTHER SPECIFIED POSTPROCEDURAL STATES * DO NOT USE * (51) Thrombophlebitis Code(s): I80.9 - PHLEBITIS AND THROMBOPHLEBITIS OF UNSPECIFIED SITE (52) Transaminitis Code(s): R74.0 - NONSPEC ELEV OF LEVELS OF TRANSAMNS & LACTIC ACID DEHYDRGNSE Assessment/Plan - Problems (1) Systolic and diastolic CHF w/reduced LV function, NYHA class 4 Assessment/Plan: d/c tele stable for outpatieent f/u CT chest: minimal-small bilateral pleural effusion; enlarged mediastinal/ parathyroid lymph nodes. ECHO 09/13/18: severely reduced LVEF; moderate LVE; severe JAIRON and LAE; mod- severe TR (moderate pulmonary HTN); moderate MR; mild AR. Ideally, restart cavredilol, ACEI, spironolactone one by one if orthostatic vital signs improve (and, for ACEI and RAAS, if present renal dysfunction stabilizes) with fluids, salt, diet, physical therapy. On furosemide prn. F/u BUN/Cr, electrolytes, Is and Os. No significant weight change since admission. Code(s): I50.40 - UNSP COMBINED SYSTOLIC AND DIASTOLIC (CONGESTIVE) HRT FAIL (2) AICD (automatic cardioverter/defibrillator) present Assessment/Plan: f/u interrogation Code(s): Z95.810 - PRESENCE OF AUTOMATIC (IMPLANTABLE) CARDIAC DEFIBRILLATOR (3) Anxiety and depression Assessment/Plan: on alprazolam. Code(s): F41.9 - ANXIETY DISORDER, UNSPECIFIED; F32.9 - MAJOR DEPRESSIVE DISORDER, SINGLE EPISODE, UNSPECIFIED (4) Aortic valve replaced Assessment/Plan: ECHO results noted (AoV well-seated; mild AR; cannot r/o significant ). Code(s): Z95.2 - PRESENCE OF PROSTHETIC HEART VALVE (5) CAD (coronary artery disease) Assessment/Plan: On ASA and clopidogrel; platelets low-normal. Code(s): I25.10 - ATHSCL HEART DISEASE OF [place] CORONARY ARTERY W/O ANG PCTRS (6) Gout Assessment/Plan: on Xyloprim. Code(s): M10.9 - GOUT, UNSPECIFIED Qualifiers: Gout etiology: unspecified cause Presence of tophus: without tophus (7) Hyperlipidemia Assessment/Plan: LDL cholesterol 66 mg/dL. continue statin. Code(s): E78.5 - HYPERLIPIDEMIA, UNSPECIFIED Qualifiers: (8) Hypothyroid Assessment/Plan: on Synthroid. TSH WNL. Code(s): E03.9 - HYPOTHYROIDISM, UNSPECIFIED Qualifiers: Hypothyroidism type: acquired Qualified Code(s): E03.9 - Hypothyroidism, unspecified (9) Status post mitral valve annuloplasty Assessment/Plan: FECHO results noted: moderate MR. Code(s): Z98.89 - OTHER SPECIFIED POSTPROCEDURAL STATES * DO NOT USE * (10) Elevated troponin Assessment/Plan: Hx NSTEMI 08/2017 mild chronic elevation of TNI since at least 2015; severe systolic LV dysfunction a likely contributer, as well as underlying CAD. EKG: AV paced rhythm Code(s): R74.8 - ABNORMAL LEVELS OF OTHER SERUM ENZYMES (11) Chronic renal failure Assessment/Plan: Off furosemide presently. Code(s): N18.9 - CHRONIC KIDNEY DISEASE, UNSPECIFIED (12) Orthostatic dizziness Assessment/Plan: Encourage fluids (but keep maximum 1.5 liters/day, given severe LV dysfunction). On furosemide prn. Proper diet, including salt (within CHF guidelines). Awareness of physical surroundings; care in standing; continue physical therapy/ strengthening exercises. Code(s): R42 - DIZZINESS AND GIDDINESS
[2018-09-20] MEDS ORDERED: PARoxetine HCL 10 MG TABLET (FP) PO STA (15:13)
[2018-09-20] MEDS ORDERED: FUROSEMIDE 20 MG TABLET (FP) PO ONE (16:30)
--- NOTE | 2018-09-20 17:09 | PN ---
Progress Note (short form) - Note Progress Note: Current Medications Acetaminophen (Tylenol -) 650 mg PO Q6H PRN PRN Reason: FEVER OR HEADACHE Allopurinol (Zyloprim -) 300 mg PO DAILY [facility] Last Admin: 09/20/18 10:38 Dose: 300 mg Alprazolam (Xanax -) 0.25 mg PO Q12H PRN PRN Reason: ANXIETY Last Admin: 09/20/18 04:10 Dose: 0.25 mg Aspirin (Ecotrin -) 81 mg PO DAILY [facility] Last Admin: 09/20/18 10:38 Dose: 81 mg Azithromycin (Zithromax -) 250 mg PO DAILY [facility] Last Admin: 09/20/18 10:38 Dose: 250 mg Clopidogrel Bisulfate (Plavix -) 75 mg PO DAILY [facility] Last Admin: 09/20/18 10:38 Dose: 75 mg Docusate Sodium (Colace -) 100 mg PO BID [facility] Last Admin: 09/20/18 10:38 Dose: 100 mg Levothyroxine Sodium (Synthroid -) 75 mcg PO DAILY@0700 [facility] Last Admin: 09/20/18 06:16 Dose: 75 mcg Rosuvastatin Calcium (Crestor -) 5 mg PO HS [facility] Last Admin: 09/19/18 21:39 Dose: 5 mg Vital Signs Temperature 97.5 F L 09/20/18 14:05 Pulse Rate 77 09/20/18 14:05 Respiratory Rate 16 09/20/18 14:05 Blood Pressure 97/69 09/20/18 14:05 O2 Sat by Pulse Oximetry (%) 97 09/20/18 09:00 CC: feels anxious; unsettled; not sleeping at night ``````````````````````````` skin--NL color heart--RR abd--benign lungs--clear but distant ext--no edema; IV site clear neuro--fully alert; coherent w/o focal deficits; gait stable, is able to ambulate entire lenght of evans on 4S, stopping occasionally ```````````````````````` Summ > URI--coughing less Ct shows bilat effusions with atelactasis; did not react well to neb Tx PLAN: cont zithromax; stop neb tx & robitussin > Hypotension--better today, has some SOB upon walking; oximetry post amb was "good".: PLAN: resume lasix at lower dose > anxiety--is Off the SSRI; but will restart as his level of anxiety has risen > CHF--was Tx'd for ACUTE failure on admission w/IV lasix based on high BNP; recent CXR basilar changes which seem to be 2nd atelecatsis but also has bilat effusions (small). PLAN: will cont PO lasix > elevated Trop--persistent but lower, possible 2nd to LVdysf; check daily > fever chills--on admission; now since resolved > bacturia--no dysuria; repeat Urine C& S show bact count under 10K; he has no sx ~~~~~~~~~~~~~~~~~~~~~~~~ Dr Desai Problem List - Problems (1) Fever and chills Code(s): R50.9 - FEVER, UNSPECIFIED (2) Hypertensive heart and chronic kidney disease with heart failure and stage 1 through stage 4 chronic kidney disease, or chronic kidney disease Code(s): I13.0 - HYP HRT & CHR KDNY DIS W HRT FAIL AND STG 1-4/UNSP CHR KDNY; I50.9 - HEART FAILURE, UNSPECIFIED; N18.9 - CHRONIC KIDNEY DISEASE, UNSPECIFIED (3) Elevated troponin Code(s): R74.8 - ABNORMAL LEVELS OF OTHER SERUM ENZYMES (4) Lipid disorder Code(s): E78.9 - DISORDER OF LIPOPROTEIN METABOLISM, UNSPECIFIED (5) Presence of combination internal cardiac defibrillator (ICD) and pacemaker Code(s): Z95.810 - PRESENCE OF AUTOMATIC (IMPLANTABLE) CARDIAC DEFIBRILLATOR (6) Gout Code(s): M10.9 - GOUT, UNSPECIFIED Qualifiers: Gout etiology: unspecified cause Presence of tophus: without tophus (7) Angioneurotic edema Code(s): T78.3XXA - ANGIONEUROTIC EDEMA, INITIAL ENCOUNTER Qualifiers: (8) Aortic valve replaced Code(s): Z95.2 - PRESENCE OF PROSTHETIC HEART VALVE (9) Hypothyroid Code(s): E03.9 - HYPOTHYROIDISM, UNSPECIFIED Qualifiers: Hypothyroidism type: acquired Qualified Code(s): E03.9 - Hypothyroidism, unspecified (10) Anxiety and depression Code(s): F41.9 - ANXIETY DISORDER, UNSPECIFIED; F32.9 - MAJOR DEPRESSIVE DISORDER, SINGLE EPISODE, UNSPECIFIED (11) PAD (peripheral artery disease) Code(s): I73.9 - PERIPHERAL VASCULAR DISEASE, UNSPECIFIED (12) Encounter for long-term use of antiplatelets/antithrombotics Code(s): Z79.02 - JAIL (CURRENT) USE OF ANTITHROMBOTICS/ANTIPLATELETS
[2018-09-20] MEDS ORDERED: ALBUTEROL SO4 0.042% IH SOL 1.25 MG/3 ML VIAL.NEB NEB PRN (17:10)
[2018-09-20] MEDS: ROSUVASTATIN CA 5 MG TABLET (FP) PO SCH (21:30)
[2018-09-21] MEDS: ALPRAZolam 0.25 MG TABLET PO PRN (04:06)
[2018-09-21] MEDS: LEVOTHYROXINE NA 75 MCG TABLET (FP) PO SCH (06:45)
[2018-09-21] MEDS: ASPIRIN COATED 81 MG TABLET.EC PO SCH (09:56)
[2018-09-21] MEDS: AZITHROMYCIN 250 MG TABLET PO SCH (09:56)
[2018-09-21] MEDS: ALLOPURINOL 300 MG TABLET (FP) PO SCH (09:57)
[2018-09-21] MEDS: CLOPIDOGREL BISULFATE 75 MG TABLET (FP) PO SCH (09:57)
--- NOTE | 2018-09-21 12:19 | DS ---
Physical Examination Vital Signs: Vital Signs Temperature 97.8 F 09/21/18 05:39 Pulse Rate 75 09/21/18 05:39 Respiratory Rate 18 09/21/18 05:39 Blood Pressure 110/63 09/21/18 05:39 O2 Sat by Pulse Oximetry (%) 98 09/20/18 22:00 Constitutional: Yes: Anxious Eyes: Yes: Conjunctiva Clear Neck: Yes: Supple Cardiovascular: Yes: Regular Rate and Rhythm Respiratory: Yes: CTA Bilaterally Gastrointestinal: Yes: Normal Bowel Sounds Musculoskeletal: Yes: WNL Extremities: Yes: WNL Edema: No Integumentary: Yes: WNL Neurological: Yes: WNL ...Motor Strength: WNL Psychiatric: Yes: WNL Labs: CBC, BMP 09/16/18 06:00 09/19/18 05:30 Discharge Summary Reason For Visit: CONGESTIVE HEART FAILURE Current Active Problems CHF (congestive heart failure) (Acute) Chronic renal failure (Acute) Encounter for long-term use of antiplatelets/antithrombotics (Acute) Orthostatic dizziness (Acute) Systolic and diastolic CHF w/reduced LV function, NYHA class 4 (Acute) acute viral syndrome pacer/defib status anxiety/depression hyperuricemia acute bronchitis Hospital Course: 83 YOM admitted for acute febrile episode with dizziness/malaise aches (felt to be due to Influenza), he arrived to ER where he was tested for rapid FLU and was negative but in his blood work it was noted that his troponon was elevated; and that his BNP was also found to be quite high. He was placed on telemetry and treated with IV diuretics but this was complicated by a drop ion BP and rise on Renal function tests. As a result, much of his medications had to be held or revised which resulted in fluctuating Sx and BP's. Thge course was further compliocated by a recurrence of chills and malaise this time with coughing; CXR revealed basilar changes that on CT were largely though to be 2nd atelectasis. His exam was benign and his temps remained NL. He was placed on zithromax and Neb Tx (the later he did not tolerate), and gradually improved. He was restarted on low dose diuretic when his BP stablized but the Coreg was kept on hold. His Troponins never normalized but slowly trended downward. This was felt to be due [facility]. He was constatnlt in a state of anxiety much of the time.He was d/c'd home with [facility] Condition: Improved - Instructions Diet, Activity, Other Instructions: low salt diet avoid soups Referrals: Hector Desai MD [Staff Physician] - Disposition: [facility]NS/HOME HEALTH CARE - Home Medications Comprehensive Discharge Medication List: Ambulatory Orders Allopurinol [Zyloprim -] 300 mg PO DAILY 12/19/15 Aspirin [ASA -] 81 mg PO DAILY 12/19/15 Clopidogrel Bisulfate [Plavix -] 75 mg PO DAILY 12/19/15 Levothyroxine [Synthroid -] 25 mcg PO DAILY 12/19/15 Paroxetine HCl [Paxil -] 10 mg PO DAILY 12/19/15 Rosuvastatin [Crestor -] 20 mg PO HS 12/19/15 Furosemide [Lasix -] 20 mg PO DAILY 06/30/16
[2018-09-21 12:41] VITALS: BP 113/73; PULSE 81; TEMP 97.4
== END 2018-09-21 13:20 | disposition home health service (06) | DRG 291 ==
LOC: JER 05:39 → JERBED 11:53 → OBSVTOIN 11:53 → J4S 09-11 16:13
PROVIDERS: ADMIT Internal Medicine; ATTEND Internal Medicine
DX: I13.0 Hypertensive heart and chronic kidney disease with heart failure and stage 1 through stage 4 chronic kidney disease, or unspecified chronic kidney disease (principal); I50.43 Acute on chronic combined systolic (congestive) and diastolic (congestive) heart failure; I45.3 Trifascicular block; N39.0 Urinary tract infection, site not specified; J98.11 Atelectasis; N17.9 Acute kidney failure, unspecified; R74.8 Abnormal levels of other serum enzymes; E78.9 Disorder of lipoprotein metabolism, unspecified; B96.20 Unspecified Escherichia coli [E. coli] as the cause of diseases classified elsewhere; M10.9 Gout, unspecified; T78.3XXA Angioneurotic edema, initial encounter; N18.1 Chronic kidney disease, stage 1; I25.10 Atherosclerotic heart disease of native coronary artery without angina pectoris; M19.90 Unspecified osteoarthritis, unspecified site; I73.9 Peripheral vascular disease, unspecified; R50.9 Fever, unspecified; F41.8 Other specified anxiety disorders; R42 Dizziness and giddiness; E03.9 Hypothyroidism, unspecified; I25.2 Old myocardial infarction; Z95.810 Presence of automatic (implantable) cardiac defibrillator; E74.39 Other disorders of intestinal carbohydrate absorption; I45.10 Unspecified right bundle-branch block; Z79.02 Long term (current) use of antithrombotics/antiplatelets; Z95.2 Presence of prosthetic heart valve; Z86.73 Personal history of transient ischemic attack (TIA), and cerebral infarction without residual deficits
CPT/HCPCS: 36415; 71045-TC-FY; 71046-TC-FY; 71250-TC; 80048; 80053; 80061; 81003; 82550; 82962; 83721; 83735; 83880; 84436; 84443; 84484; 84550; 85025; 85027; 85651; 87040; 87086; 87186; 87804; 93005; 93010; 93306-TC; 94640; 97116-GP; 97162-GP; 99285-25

== ENCOUNTER 2018-09-26 13:07 | Inpatient (IN) | payer OTHER, MEDICARE ==
[2018-09-26 13:40] VITALS: BMI 28.4
[2018-09-26 14:00] LABS: BASO % 0.6 % (0-2.0); EOS % 0.7 % (0-4.5); HEMATOCRIT 41.1 % (35.4-49); HEMOGLOBIN 13.8 GM/dL (11.7-16.9); LYMPH % 21.5 % (8-40); MCHC 33.5 g/dl (32.0-35.9); MEAN CELL VOLUME 95.4 fl (80-96); MEAN PLT VOLUME 9.1 fl (7.5-11.1); MONO % 7.5 % (3.8-10.2); NEUT % 69.7 % (42.8-82.8); PLATELET COUNT 177 K/MM3 (134-434); RBC 4.31 M/mm3 (4.00-5.60); RDW 16.5 % (11.9-15.9); WHITE BLOOD COUNT 6.4 K/mm3 (4.0-10.0)
--- NOTE | 2018-09-26 14:01 | PDOC ---
History of Present Illness <Damaris Dacosta Austindonya - Last Filed: 09/26/18 16:07> <Florence Headley - Last Filed: 09/26/18 21:28> - General History Source: Patient Exam Limitations: No Limitations - History of Present Illness Initial Comments: 09/26/18 13:56 The patient is an 83M with a PMH of CHF, HTN, CAD, Gout, OA, Hypothyroidism and anxiety who presents to the ER with complaints of worsening SOB. The patient states that for the past 5 days (since he was discharged from our facility), he' s had worsening SOB with exertion. He states that today, he was supposed to follow up with his PCP but became so "winded" going up the stairs that he called EMS and presented to the ER. He admits to SMITH and no orthopnea, resting SOB, CP, fever, chills, vomiting. He also admits to nausea. He denies any other acute complaints. <Hector Flood - Last Filed: 09/26/18 21:44> - General Chief Complaint: Shortness of Breath Stated Complaint: SHORTNESS OF BREATH Time Seen by Provider: 09/26/18 13:26 Past History <Damaris Dacosta Lindsay - Last Filed: 09/26/18 16:07> <Florence Headley - Last Filed: 09/26/18 21:28> - Past Medical History Anemia: No Asthma: No Cancer: No Cardiac Disorders: Yes (AV&MV repair) CVA: Yes (TIA 10 yrs ago) COPD: No CHF: Yes Dementia: No Diabetes: No GI Disorders: No Disorders: No HTN: Yes Hypercholesterolemia: Yes Liver Disease: No Psychiatric Problems: Yes (Anxiety ) Seizures: No Thyroid Disease: Yes (Hypothyroid) - Surgical History Abdominal Surgery: No Appendectomy: No Cardiac Surgery: Yes (Aortic/Mitral valve replacement; CABG; AICD) Cholecystectomy: No Lung Surgery: No Neurologic Surgery: No Orthopedic Surgery: Yes (Left knee arthoscopy) - Immunization History Immunization Up to Date: Yes - Suicide/Smoking/Psychosocial Hx Smoking Status: Yes Smoking History: Former smoker Have you smoked in the past 12 months: No Number of Cigarettes Smoked Daily: 20 If you are a former smoker, when did you quit?: 4 years ago Information on smoking cessation initiated: No Hx Alcohol Use: No Drug/Substance Use Hx: No Substance Use Type: None Hx Substance Use Treatment: No <Hector Flood - Last Filed: 09/26/18 21:44> - Past Medical History Allergies/Adverse Reactions: Allergies Allergy/AdvReac Type Severity Reaction Status Date / Time lisinopril Allergy Intermediate Cough Verified 09/26/18 13:10 Penicillins Allergy Intermediate Rash Verified 09/26/18 13:10 pravastatin sodium Allergy Intermediate MUSCLE PAIN Verified 09/26/18 13:10 [From Pravachol] simvastatin [From Zocor] Allergy Intermediate MUSCLE PAIN Verified 09/26/18 13: 10 sertraline Allergy Unknown Verified 09/26/18 13:10 Home Medications: Ambulatory Orders Allopurinol [Zyloprim -] 300 mg PO DAILY 12/19/15 Aspirin [ASA -] 81 mg PO DAILY 12/19/15 Clopidogrel Bisulfate [Plavix -] 75 mg PO DAILY 12/19/15 Levothyroxine [Synthroid -] 25 mcg PO DAILY 12/19/15 Paroxetine HCl [Paxil -] 10 mg PO DAILY 12/19/15 Rosuvastatin [Crestor -] 20 mg PO HS 12/19/15 Furosemide [Lasix -] 40 mg PO DAILY 06/30/16 Colesevelam HCl [Welchol (Nf)] 625 mg PO DAILY 06/13/17 Review of Systems - Review of Systems Able to Perform ROS?: Yes Comments:: 09/26/18 14:03 GENERAL/CONSTITUTIONAL: No fever or chills. No weakness. HEAD, EYES, EARS, NOSE AND THROAT: No change in vision. No ear pain or discharge. No sore throat. CARDIOVASCULAR: No chest pain, palpitations, or lightheadedness. RESPIRATORY: Positive for dyspnea on exertion. No cough, wheezing, or hemoptysis. GASTROINTESTINAL: Positive for nausea. No vomiting, diarrhea, constipation, or abdominal pain. GENITOURINARY: No dysuria, frequency, hematuria, or change in urination. MUSCULOSKELETAL: No joint or muscle swelling or pain. No neck or back pain. SKIN: No rash or lesions. NEUROLOGIC: No headache, numbness, tingling, focal weakness, loss of consciousness, or change in strength/sensation. ENDOCRINE: No increased thirst. No abnormal weight change. HEMATOLOGIC/LYMPHATIC: No anemia, easy bleeding, or history of blood clots. ALLERGIC/IMMUNOLOGIC: No hives or skin allergy. Is the patient limited Italian proficient: No <Hector Flood - Last Filed: 09/26/18 21:44> *Physical Exam - Vital Signs Last Vital Signs Temp Pulse Resp BP Pulse Ox 97.4 F L 75 22 H 108/68 100 09/26/18 13:11 09/26/18 13:50 09/26/18 13:50 09/26/18 13:50 09/26/18 13:50 <Damaris Dacosta - Last Filed: 09/26/18 16:07> - Vital Signs Last Vital Signs Temp Pulse Resp BP Pulse Ox 97.7 F 77 19 92/65 97 09/26/18 19:02 09/26/18 19:02 09/26/18 19:02 09/26/18 19:02 09/26/18 19:02 <Florence Headley - Last Filed: 09/26/18 21:28> - Vital Signs Last Vital Signs Temp Pulse Resp BP Pulse Ox 97.4 F L 75 22 H 108/68 100 09/26/18 13:11 09/26/18 13:50 09/26/18 13:50 09/26/18 13:50 09/26/18 13:50 - Physical Exam Comments: 09/26/18 14:05 GENERAL: Well developed, well nourished. Awake and alert. No acute distress, slightly anxious appearing. HEENT: Normocephalic, atraumatic. Hearing grossly normal. Moist mucous membranes. PERRLA, EOMI. No conjunctival pallor. Sclera are non-icteric. NECK: Supple. Full ROM. No JVD. CARDIOVASCULAR: Regular rate and rhythm. No murmurs, rubs, or gallops. PULMONARY: No evidence of respiratory distress. Lungs clear to auscultation bilaterally. No wheezing, rales or rhonchi. ABDOMINAL: Soft. Non-tender. Non-distended. No rebound or guarding. GENITOURINARY: No CVA tenderness bilaterally. MUSCULOSKELETAL: Normal range of motion at all joints. No bony deformities or tenderness. EXTREMITIES: No cyanosis. No clubbing. No edema. No calf tenderness or swelling. SKIN: Warm and dry. Normal capillary refill. No rashes. No jaundice. NEUROLOGICAL: Alert, awake, appropriate. Cranial nerves 2-12 grossly intact. Normal speech. Gait is normal without ataxia. PSYCHIATRIC: Cooperative. Good eye contact. Appropriate mood and affect. <Hector Flood - Last Filed: 09/26/18 21:44> Moderate Sedation - Procedure Monitoring Vital Signs: Procedure Monitoring Vital Signs Temperature 97.4 F L 09/26/18 13:11 Pulse Rate 75 09/26/18 13:50 Respiratory Rate 22 H 09/26/18 13:50 Blood Pressure 108/68 09/26/18 13:50 O2 Sat by Pulse Oximetry (%) 100 09/26/18 13:50 <Damaris Dacosta Olesyagwendolyndonya - Last Filed: 09/26/18 16:07> - Procedure Monitoring Vital Signs: Procedure Monitoring Vital Signs Temperature 97.7 F 09/26/18 19:02 Pulse Rate 77 09/26/18 19:02 Respiratory Rate 19 09/26/18 19:02 Blood Pressure 92/65 09/26/18 19:02 O2 Sat by Pulse Oximetry (%) 97 09/26/18 19:02 <Florence Headley - Last Filed: 09/26/18 21:28> - Procedure Monitoring Vital Signs: Procedure Monitoring Vital Signs Temperature 97.4 F L 09/26/18 13:11 Pulse Rate 75 09/26/18 13:50 Respiratory Rate 22 H 09/26/18 13:50 Blood Pressure 108/68 09/26/18 13:50 O2 Sat by Pulse Oximetry (%) 100 09/26/18 13:50 <Hector Flood - Last Filed: 09/26/18 21:44> Heart Score/ECG Review #1 ECG reviewed & interpreted by me at: 13:35 Compared to previous ECG there are: No significant change 09/26/18 14:24 AV paced rhythm vent rate 75 UT 248 QRS 186 QTc 567 No STD or BRIAN No signs of acute ischemia No changes c/w prior <Hector Flood - Last Filed: 09/26/18 21:44> ED Treatment Course - LABORATORY CBC & Chemistry Diagram: 09/26/18 13:47 09/26/18 13:47 - ADDITIONAL ORDERS Additional order review: Laboratory Results 09/26/18 09/26/18 13:47 13:47 PT with INR 16.30 H INR 1.38 H Sodium 133 L Potassium 5.2 H Chloride 102 Carbon Dioxide 19 L Anion Gap 12 BUN 72 H Creatinine 3.5 H Creat Clearance w eGFR 16.85 Random Glucose 105 Calcium 8.5 Magnesium 2.5 H Total Bilirubin 0.9 AST 296 H ALT 181 H Alkaline Phosphatase 123 H Creatine Kinase 86 Troponin I 0.19 H B-Natriuretic Peptide 55790.0 H Total Protein 6.8 Albumin 3.5 09/26/18 13:47 RBC 4.31 MCV 95.4 MCHC 33.5 RDW 16.5 H MPV 9.1 Neutrophils % 69.7 Lymphocytes % 21.5 Monocytes % 7.5 Eosinophils % 0.7 Basophils % 0.6 - Medications Given in the ED: ED Medications Discontinued Medications Generic Name Dose Route Start Last Admin Trade Name Freq PRN Reason Stop Dose Admin Aspirin 162 mg 09/26/18 16:02 09/26/18 16:06 Asa - PO 09/26/18 16:03 162 mg ONCE ONE Administration <Damaris Dacosta - Last Filed: 09/26/18 16:07> - LABORATORY CBC & Chemistry Diagram: 09/26/18 13:47 09/26/18 13:47 - ADDITIONAL ORDERS Additional order review: Laboratory Results 09/26/18 09/26/18 13:47 13:47 PT with INR 16.30 H INR 1.38 H Sodium 133 L Potassium 5.2 H Chloride 102 Carbon Dioxide 19 L Anion Gap 12 BUN 72 H Creatinine 3.5 H Creat Clearance w eGFR 16.85 Random Glucose 105 Calcium 8.5 Magnesium 2.5 H Total Bilirubin 0.9 AST 296 H ALT 181 H Alkaline Phosphatase 123 H Creatine Kinase 86 Troponin I 0.19 H B-Natriuretic Peptide 62028.0 H Total Protein 6.8 Albumin 3.5 09/26/18 13:47 RBC 4.31 MCV 95.4 MCHC 33.5 RDW 16.5 H MPV 9.1 Neutrophils % 69.7 Lymphocytes % 21.5 Monocytes % 7.5 Eosinophils % 0.7 Basophils % 0.6 - Medications Given in the ED: ED Medications Discontinued Medications Generic Name Dose Route Start Last Admin Trade Name Freq PRN Reason Stop Dose Admin Aspirin 162 mg 09/26/18 16:02 09/26/18 16:06 Asa - PO 09/26/18 16:03 162 mg ONCE ONE Administration Furosemide 40 mg 09/26/18 16:06 09/26/18 16:37 Lasix Injection - IVPUSH 09/26/18 16:07 Not Given ONCE ONE <Florence Headley - Last Filed: 09/26/18 21:28> - LABORATORY CBC & Chemistry Diagram: 09/26/18 13:47 09/26/18 13:47 - RADIOLOGY Radiology Studies Ordered: Category Date Time Status CHEST X-RAY PORTABLE* [RAD] Stat Radiology 09/26/18 13:34 Ordered <Hector Flood - Last Filed: 09/26/18 21:44> Medical Decision Making - Medical Decision Making 09/26/18 14:24 The patient is an 83M with an extensive PMH who presents to the ER for worsening SMITH, concerning for ACS, CHF exacerbation, and worsening anxiety attack. Pending labs and imaging. Pt currently hemodynamically stable without symptoms. 09/26/18 14:50 Bedside US reveals b/l pleural effusions and decreased EF indicating possible CHF exacerbation. Will hold on diuretics as pt has BP of 90's/60's. 09/26/18 15:03 BNP 28046, trop of 0.19, and Cr of 3.5, elevated from prior. Diagnosis of CHF exacerbation with troponin elevation and ESTELLA. Dr. Drummond paged for admission. 09/26/18 15:13 I have endorsed the patient to Dr. Desai for admission. He requests Dr. Kidd for cards. Will page cards. 09/26/18 21:40 Pt has BP of 70's/50's. Will continue fluids. Dr. Desai aware. Will upgrade pt to ICU. Pt states he is full code but does not want a central line. Will start phenelypehrine. Pt endorsed to Dr. Nguyen for ICU admission. <Hector Flood - Last Filed: 09/26/18 21:44> *DC/Admit/Observation/Transfer - Discharge Dispostion Decision to Admit order: Yes Decision to Admit order Date/Time: 09/26/18 16:07 <Damaris Dacosta - Last Filed: 09/26/18 16:07> <Florence Headley - Last Filed: 09/26/18 21:28> - Discharge Dispostion Decision to Admit order: Yes <Hector Flood - Last Filed: 09/26/18 21:44> Diagnosis at time of Disposition: Acute on chronic systolic and diastolic heart failure, NYHA class 1, Pleural effusion, NSTEMI (non-ST elevated myocardial infarction) - Discharge Dispostion Condition at time of disposition: Guarded
--- NOTE | 2018-09-26 14:04 | PDOC ---
Attending Attestation - Resident Resident Name: Hector Flood - ED Attending Attestation I have performed the following: I have examined & evaluated the patient, The case was reviewed & discussed with the resident, I agree w/resident's findings & plan - HPI HPI: 09/26/18 15:46 83 year old male with a PMH of CHF, HTN, Hypothyroidism, CAD, OA, Gout, and anxiety who presents to the emergency department for evaluation of worsening SOB. Recent hospital discharge for worsening SOB (08/2018). Patient reports SMITH after going up stairs this morning which prompted him to activate EMS for further evaluation. PMD: Dr Ragland - Physicial Exam PE: 09/26/18 15:56 NAD, well appearing, EOMI, PERRL, nl conjunctiva, anicteric; no JVD. neck supple. lungs decreased breath sounds at bases, RRR, abdomen soft nontender. PAPPAS x4, no focal neuro deficits. No peripheral edema. normal color for ethnicity , WWP. no calf tenderness - Medical Decision Making 09/26/18 15:59 See HPI for details DDx SOB: ACS, arrhythmia, PE, CHF, pulmonary edema, pleurisy, pneumonia, viral syndrome. effusion. anemia, electrolyte/metabolic derangements. Vital signs reviewed, wnl. Prior notes reviewed, including admissions, discharges and consultations. laboratory results and imaging reviewed, basic labs and lytes wnl, notable for elevated transaminitis, BNP and trop elevated CXR_cardiomegaly with some pulmonary vascular congestion Cardiac panel_Positive trop and BNP, correlating with cardiopulmonary etiology and POCUS for CHF. always elevated trop, with much more elevated BNP higher than previous (79086) EKG normal sinus rhythm, no interval abnormalities, narrow QRS, ST and T wave segments and morphology normal. Nonspecific T wave abnormalities - unchanged from prior. ED course: O2 supplementation for borderline sats in low 90s initially, comfortable now Bedside echo and thoracic exam with bilateral pleural effusions and severe CHF/ depressed contractility, correlating with progressive CHF. ASA given for +trop. treating as CHF, diuresis with lasix. inpatient cards cs for NSTEMI and CHF exac. admit for CHF management. pt made aware of impression and plan spoke with DR Desai. 09/26/18 16:08 Heart Score/ECG Review - ECG Impressions Normal ECG: No Comment:: 09/26/18 16:01 EKG normal sinus rhythm, no interval abnormalities, narrow QRS, ST and T wave segments and morphology normal. Nonspecific T wave abnormalities - unchanged from prior. Procedures - Bedside Ultrasound Bedside Ultrasound: Cardiac Remarks: 09/26/18 15:58 POCUS echo and thoracic exam performed, indication includes chest pain/dyspnea. views obtained (PSLA, PSS, A4, SX, IVC, b/l lung uribe). Findings include severely depressed EF<30% on visual estimation, no pericardial effusion, scant B lines, +bilateral moderate pleural effusions. plethoric IVC. Normal aortic root <4cm. RV<LV. Impression:
[2018-09-26 14:18] LABS: INR 1.38 (0.83-1.09); PROTHROMBIN TIME (PATIENT) 16.3 SEC (9.7-13.0)
[2018-09-26 14:57] LABS: ALBUMIN 3.5 g/dl (3.4-5.0); ALK PHOS 123 U/L (45-117); ANION GAP 12 MMOL/L (8-16); BILIRUBIN,TOTAL 0.9 mg/dL (0.2-1); BLOOD UREA NITROGEN 72 mg/dL (7-18); CALCIUM 8.5 mg/dL (8.5-10.1); CHLORIDE 102 mmol/L (98-107); CO2 19 mmol/L (21-32); CREATININE 3.5 mg/dL (0.55-1.3); GLUCOSE,RANDOM 105 mg/dL (74-106); MAGNESIUM 2.5 mg/dL (1.8-2.4); POTASSIUM 5.2 mmol/L (3.5-5.1); SGOT/AST 296 U/L (15-37); SGPT/ALT 181 U/L (13-61); SODIUM 133 mmol/L (136-145); TOT PROT 6.8 g/dl (6.4-8.2)
--- NOTE | 2018-09-26 15:49 | EKG ---
Test Reason : Blood Pressure : / mmHG Vent. Rate : 075 BPM Atrial Rate : 075 BPM P-R Int : 248 ms QRS Dur : 186 ms QT Int : 508 ms P-R-T Axes : -06 113 -44 degrees QTc Int : 567 ms AV dual-paced rhythm with prolonged AV conduction Biventricular pacemaker detected ABNORMAL ECG WHEN COMPARED WITH ECG OF 10-SEP-2018 10:42, NO SIGNIFICANT CHANGE WAS FOUND Confirmed by Goran Smith ([id number]) on 09/26/2018 3:49:12 PM Referred By: Confirmed By:Goran Smith
[2018-09-26] MEDS ORDERED: ASPIRIN 81 MG CHEWABLE TABLETS PO ONE (16:02)
[2018-09-26] MEDS ORDERED: ASPIRIN 81 MG CHEWABLE TABLETS ONE (16:05)
[2018-09-26] MEDS ORDERED: FUROSEMIDE 40 MG/4 ML INJECTABLE VIAL IVPUSH ONE (16:06)
--- NOTE | 2018-09-26 18:15 | HP ---
Admitting History and Physical - Primary Care Physician PCP: Hector Desai - Admission Chief Complaint: severely weak since the AM today History of Present Illness: 83M with a pacer/ICD and PMH of Hypertensive heart disease; signif LV dysf who was d/'c from [facility] about 1 week ago when he was admitted for what was initially a viral syndrome & malaise but was found to have a (+) Trop level as well as a high BNP. He was released when he reached a plateau with his BP; Troponin, renal functions. He was also being followed by cardiology. The patient states that for the past 5 days (since he was discharged from our facility), he's had been growing weaker feeling more SMITH. He states that today, he was supposed to follow up with his PCP but became so "winded" going up the stairs that he called EMS and presented to the ER. He denies sweats, no orthopnea, resting SOB , CP, fever, chills, vomiting. He also admits to some nausea and loss of appetite and notably decreased stamina. He had not been taking his diuretic or the BB given his low BP in the past day or so. 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 No: Aneurysm, Aortic Insufficiency, Aortic Stenosis, CAD, Deep Vein Thrombosis, [place], Mitral Insufficiency, Mitral Stenosis, Pulmonary Hypertension, Other Renal/: Yes: Renal Inusuff (CKD (stage 1)). No: Renal Failure, BPH, Cancer, Hematuria, Hemodialysis, Neurogenic Bladder, Renal Calculi, UTI, Other Heme/Onc: Yes: Other (MGUS) Psych: Yes: Anxiety, Other (affective dz) Musculoskeletal: Yes: Osteoarthritis Rheumatology: Yes: Gout. No: Fibromyalgia, Lupus, Rheumatoid Arthritis, Sarcoidosis, Vasculitis, Other Endocrine: Yes: Hypothyroidism, Other (Gluc intolerance) - Past Surgical History Past Surgical History: Yes: Permanent Pacemaker, Valve Replacement. No: None, AAA Repair, AICD, Amputation, Appendectomy, Arthrosocopy, AV Fistula/Graft, Bariatric Surgery, Breast Biopsy, Bypass, CABG, Carotid Endarterectomy, Cataract Removal, Cholecystectomy, Colectomy, Colonoscopy, Colostomy, Craniotomy , , Cystectomy, Hernia Repair, Hysterectomy, Ileal Conduit, Ileosotomy , Joint Replacement, Kidney Transplant, Laminectomy, Liver Transplant, Mastectomy, Nephrectomy, Oopherectomy, Orchiectomy, Prostatectomy, Splenectomy, Stent, Thoracotomy, TURP, Tonsillectomy, Tubal Ligation, Upper Endoscopy, Vasectomy, Vein Stripping/Ligation - Smoking History Smoking history: Former smoker Have you smoked in the past 12 months: No Aproximately how many cigarettes per day: 20 - Alcohol/Substance Use Hx Alcohol Use: No History of Substance Use: reports: None - Social History Usual Living Arrangement: Yes: Alone ADL: Independent 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 History of Recent Travel: Yes Home Medications - Allergies Allergies/Adverse Reactions: Allergies Allergy/AdvReac Type Severity Reaction Status Date / Time lisinopril Allergy Intermediate Cough Verified 09/26/18 13:10 Penicillins Allergy Intermediate Rash Verified 09/26/18 13:10 pravastatin sodium Allergy Intermediate MUSCLE PAIN Verified 09/26/18 13:10 [From Pravachol] simvastatin [From Zocor] Allergy Intermediate MUSCLE PAIN Verified 09/26/18 13: 10 sertraline Allergy Unknown Verified 09/26/18 13:10 - Home Medications Home Medications: Ambulatory Orders Allopurinol [Zyloprim -] 300 mg PO DAILY 12/19/15 Aspirin [ASA -] 81 mg PO DAILY 12/19/15 Clopidogrel Bisulfate [Plavix -] 75 mg PO DAILY 12/19/15 Levothyroxine [Synthroid -] 25 mcg PO DAILY 12/19/15 Paroxetine HCl [Paxil -] 10 mg PO DAILY 12/19/15 Rosuvastatin [Crestor -] 20 mg PO HS 12/19/15 Furosemide [Lasix -] 40 mg PO DAILY 06/30/16 Colesevelam HCl [Welchol (Nf)] 625 mg PO DAILY 06/13/17 Family Disease History - Family Disease History Family Disease History: Diabetes: Mother, Heart Disease: Mother Review of Systems - Review of Systems Constitutional: reports: Loss of Appetite, Weakness Eyes: reports: No Symptoms HENT: reports: Other (dry mouth) Neck: reports: No Symptoms Cardiovascular: reports: Shortness of Breath Respiratory: reports: SOB on Exertion Gastrointestinal: reports: Nausea Genitourinary: reports: No Symptoms Musculoskeletal: reports: No Symptoms Integumentary: reports: No Symptoms Neurological: reports: Weakness Endocrine: reports: No Symptoms Hematology/Lymphatic: reports: No Symptoms Psychiatric: reports: Anxiety Physical Examination Vital Signs: Vital Signs Temperature 97.4 F L 09/26/18 13:11 Pulse Rate 75 09/26/18 13:50 Respiratory Rate 22 H 09/26/18 13:50 Blood Pressure 108/68 09/26/18 13:50 O2 Sat by Pulse Oximetry (%) 100 09/26/18 13:50 Findings/Remarks: [facility] in [place] watching TV `````````````````````````````````````````` skin--NL color eyes--EOMI oral--mucosa mildly dry face--no droop neck--no masses; no JVD lungs--bilat clear heart--RR abd--grossly benign ext--no CCE; dimnished pedal pulses back--no CVAT neuro--awake, lucid; coherent speech is clear, good eye contact moves all Ext well; no gross motor/sens deficits CBCD WBC 6.4 K/mm3 (4.0-10.0) 09/26/18 13:47 RBC 4.31 M/mm3 (4.00-5.60) 09/26/18 13:47 Hgb 13.8 GM/dL (11.7-16.9) 09/26/18 13:47 Hct 41.1 % (35.4-49) 09/26/18 13:47 MCV 95.4 fl (80-96) 09/26/18 13:47 MCHC 33.5 g/dl (32.0-35.9) 09/26/18 13:47 RDW 16.5 % (11.9-15.9) H 09/26/18 13:47 Plt Count 177 K/MM3 (134-434) D 09/26/18 13:47 MPV 9.1 fl (7.5-11.1) 09/26/18 13:47 CMP Sodium 133 mmol/L (136-145) L 09/26/18 13:47 Potassium 5.2 mmol/L (3.5-5.1) H 09/26/18 13:47 Chloride 102 mmol/L (98-107) 09/26/18 13:47 Carbon Dioxide 19 mmol/L (21-32) L 09/26/18 13:47 Anion Gap 12 MMOL/L (8-16) 09/26/18 13:47 BUN 72 mg/dL (7-18) H 09/26/18 13:47 Creatinine 3.5 mg/dL (0.55-1.3) H 09/26/18 13:47 Creat Clearance w eGFR 16.85 (>60) 09/26/18 13:47 Random Glucose 105 mg/dL (74-106) 09/26/18 13:47 Calcium 8.5 mg/dL (8.5-10.1) 09/26/18 13:47 Total Bilirubin 0.9 mg/dL (0.2-1) 09/26/18 13:47 AST 296 U/L (15-37) H 09/26/18 13:47 ALT 181 U/L (13-61) H 09/26/18 13:47 Alkaline Phosphatase 123 U/L (45-117) H 09/26/18 13:47 Total Protein 6.8 g/dl (6.4-8.2) 09/26/18 13:47 Albumin 3.5 g/dl (3.4-5.0) 09/26/18 13:47 CARDIAC ENZYMES Creatine Kinase 86 U/L (26-308) 09/26/18 13:47 Troponin I 0.19 ng/ml (0.00-0.05) H 09/26/18 13:47 Labs: CBC, BMP 09/26/18 13:47 09/26/18 13:47 Imaging - Results Chest X-ray: Report Reviewed EKG: Report Reviewed Problem List - Problems (1) Hypotension Assessment/Plan: NL BP lies on low end of NL, but was more hypotensive upon arrival. In connection with greatly eleavted Bun/Cr it could be due (or have been caused by a state of dehydration). PLAN: Hold BB, Lasix. Will Rx Bolus of 250cc NS, and follow renal funct in AM Code(s): I95.9 - HYPOTENSION, UNSPECIFIED Qualifiers: Hypotension type: other hypotension type Qualified Code(s): I95.89 - Other hypotension (2) Chronic diastolic CHF (congestive heart failure), NYHA class 3 Assessment/Plan: with pre-existing low EJ Fx which complicates addressing his hydration aggressively. The CXR is clearer than what it was 1 week ago, but chest wall US (by ER staff claim they identified bila pleural effusions) PLAN: BB and diuretics to be held for now pending normalization of this chemistries Code(s): I50.32 - CHRONIC DIASTOLIC (CONGESTIVE) HEART FAILURE (3) Chronic renal insufficiency Assessment/Plan: Bun and Creat Normally at 40 and 2.0; now have been pushed up presumably 2nd intravasc depletion. PLAN IVF Code(s): N18.9 - CHRONIC KIDNEY DISEASE, UNSPECIFIED Qualifiers: Chronic kidney disease stage: stage 3 (moderate) Qualified Code(s): N18.3 - Chronic kidney disease, stage 3 (moderate) (4) Elevated troponin Assessment/Plan: not new; but higher than upon d/c; no acute ST segm elevations PLAN: follow daily Code(s): R74.8 - ABNORMAL LEVELS OF OTHER SERUM ENZYMES (5) Transaminasemia Assessment/Plan: doubt true liver Dz; as they were NL on his Prior admission; more than likely 2nd to sluggist hepatic flow (passive congestion); PLAN stop statin; IVF Code(s): R74.0 - NONSPEC ELEV OF LEVELS OF TRANSAMNS & LACTIC ACID DEHYDRGNSE (6) Encounter for long-term use of antiplatelets/antithrombotics Assessment/Plan: will resume Code(s): Z79.02 - SNF (CURRENT) USE OF ANTITHROMBOTICS/ANTIPLATELETS (7) AICD (automatic cardioverter/defibrillator) present Assessment/Plan: with pacer combo Code(s): Z95.810 - PRESENCE OF AUTOMATIC (IMPLANTABLE) CARDIAC DEFIBRILLATOR (8) Carotid occlusion, left Assessment/Plan: longstanding Code(s): I65.22 - OCCLUSION AND STENOSIS OF LEFT CAROTID ARTERY (9) PAD (peripheral artery disease) Assessment/Plan: stable; cont plavix Code(s): I73.9 - PERIPHERAL VASCULAR DISEASE, UNSPECIFIED (10) Gout Assessment/Plan: controlled with allopurinal; previous levels WNL Code(s): M10.9 - GOUT, UNSPECIFIED Qualifiers: Gout etiology: unspecified cause Presence of tophus: without tophus (11) Hypothyroid Assessment/Plan: on supplements; euthryroid Code(s): E03.9 - HYPOTHYROIDISM, UNSPECIFIED Qualifiers: Hypothyroidism type: acquired Qualified Code(s): E03.9 - Hypothyroidism, unspecified (12) Dysthymia (or depressive neurosis) Assessment/Plan: helped by use of paxil Code(s): F34.1 - DYSTHYMIC DISORDER (13) 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 ~~~~~~~~~~~~~~~~~ Dr Desai
--- NOTE | 2018-09-26 18:23 | CON.CARD ---
Consult Consult Specialty:: cardiology Reason for Consultation:: weakness; - History of Present Illness Chief Complaint: Pt A&Ox3; c/o profound weakness; also has had brief bouts of shortness of breath. History of Present Illness: The patient is an 83 white man with a PMH of HTN, severe systolic CHF-->ICD, HTN, CAD, Gout, OA, Hypothyroidism, and anxiety, who presents to the ER with complaints of worsening SOB. The patient states that for the past 5 days (since he was discharged from our facility), he's had worsening SOB with exertion. He states that today, he was supposed to follow up with his PCP but became so "winded" going up the stairs that he called EMS and presented to the ER. He admits to SMITH and no orthopnea, resting SOB, CP, fever, chills, vomiting. He also admits to nausea. He denies any other acute complaints. 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 No: Aneurysm, Aortic Insufficiency, Aortic Stenosis, CAD, Deep Vein Thrombosis, [place], Mitral Insufficiency, Mitral Stenosis, Pulmonary Hypertension, Other Renal/: Yes: Renal Inusuff (CKD (stage 1)). No: Renal Failure, BPH, Cancer, Hematuria, Hemodialysis, Neurogenic Bladder, Renal Calculi, UTI, Other Psych: Yes: Anxiety, Other (affective dz) Musculoskeletal: Yes: Osteoarthritis Rheumatology: Yes: Gout. No: Fibromyalgia, Lupus, Rheumatoid Arthritis, Sarcoidosis, Vasculitis, Other Endocrine: Yes: Hypothyroidism, Other (Gluc intolerance) - Past Surgical History Past Surgical History: Yes: Permanent Pacemaker, Valve Replacement. No: None, AAA Repair, AICD, Amputation, Appendectomy, Arthrosocopy, AV Fistula/Graft, Bariatric Surgery, Breast Biopsy, Bypass, CABG, Carotid Endarterectomy, Cataract Removal, Cholecystectomy, Colectomy, Colonoscopy, Colostomy, Craniotomy , , Cystectomy, Hernia Repair, Hysterectomy, Ileal Conduit, Ileosotomy , Joint Replacement, Kidney Transplant, Laminectomy, Liver Transplant, Mastectomy, Nephrectomy, Oopherectomy, Orchiectomy, Prostatectomy, Splenectomy, Stent, Thoracotomy, TURP, Tonsillectomy, Tubal Ligation, Upper Endoscopy, Vasectomy, Vein Stripping/Ligation - Alcohol/Substance Use Hx Alcohol Use: No History of Substance Use: reports: None - Smoking History Smoking history: Former smoker Have you smoked in the past 12 months: No Aproximately how many cigarettes per day: 20 If you are a former smoker, when did you quit?: 4 years ago - Social History Usual Living Arrangement: Alone ADL: Independent 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 History of Recent Travel: Yes (went to [place] 1 week ago) Home Medications - Allergies Allergies/Adverse Reactions: Allergies Allergy/AdvReac Type Severity Reaction Status Date / Time lisinopril Allergy Intermediate Cough Verified 09/26/18 13:10 Penicillins Allergy Intermediate Rash Verified 09/26/18 13:10 pravastatin sodium Allergy Intermediate MUSCLE PAIN Verified 09/26/18 13:10 [From Pravachol] simvastatin [From Zocor] Allergy Intermediate MUSCLE PAIN Verified 09/26/18 13: 10 sertraline Allergy Unknown Verified 09/26/18 13:10 - Home Medications Home Medications: Ambulatory Orders Allopurinol [Zyloprim -] 300 mg PO DAILY 12/19/15 Aspirin [ASA -] 81 mg PO DAILY 12/19/15 Clopidogrel Bisulfate [Plavix -] 75 mg PO DAILY 12/19/15 Levothyroxine [Synthroid -] 25 mcg PO DAILY 12/19/15 Paroxetine HCl [Paxil -] 10 mg PO DAILY 12/19/15 Rosuvastatin [Crestor -] 20 mg PO HS 12/19/15 Furosemide [Lasix -] 40 mg PO DAILY 06/30/16 Colesevelam HCl [Welchol (Nf)] 625 mg PO DAILY 06/13/17 Family Disease History - Family Disease History Family Disease History: Diabetes: Mother, Heart Disease: Mother Review of Systems - Review of Systems Constitutional: reports: Weakness Eyes: reports: No Symptoms HENT: reports: No Symptoms Neck: reports: No Symptoms Cardiovascular: reports: Shortness of Breath Respiratory: reports: SOB on Exertion Gastrointestinal: reports: No Symptoms Breasts: reports: No Symptoms Reported Musculoskeletal: reports: Muscle Weakness Integumentary: reports: No Symptoms Neurological: reports: Weakness Endocrine: reports: No Symptoms Hematology/Lymphatic: reports: No Symptoms Psychiatric: reports: Anxiety, Depression - Risk Factors Known Risk Factors: Yes: Age, Gender, Hypercholesterolemia, Hypertension, Physical Inactivity, Other (severe systolic CHF) Vital Signs: Vital Signs Temperature 97.4 F L 09/26/18 13:11 Pulse Rate 75 09/26/18 13:50 Respiratory Rate 22 H 09/26/18 13:50 Blood Pressure 108/68 09/26/18 13:50 O2 Sat by Pulse Oximetry (%) 100 09/26/18 13:50 Constitutional: Yes: Anxious, Mild Distress Eyes: Yes: WNL HENT: Yes: WNL Neck: Yes: WNL Respiratory: Yes: WNL Gastrointestinal: Yes: Soft Renal/: No: Anuria Cardiovascular: Yes: Regular Rate and Rhythm JVD: No Carotid Bruit: No PMI: Displaced Heart Sounds: Yes: S1, Split S2 Murmur: Yes: Systolic Murmur, Grade 2 Musculoskeletal: Yes: Joint Stiffness, Muscle Weakness Extremities: Yes: Cool, Other (despite not wearing his customary compression stockings for at least several days, pt has had little or no LE swelling) Edema: No Peripheral Pulses WNL: Yes Integumentary: Yes: WNL Neurological: Yes: Alert, Oriented, Weakness Psychiatric: Yes: Alert, Oriented, Other (anxeity/depression) - Other Data Labs, Other Data: CBC, BMP 09/26/18 13:47 09/26/18 13:47 INR, PTT INR 1.38 (0.83-1.09) H 09/26/18 13:47 Troponin, BNP 09/26/18 13:47 Troponin I 0.19 H B-Natriuretic Peptide 75251.0 H Troponin, BNP 09/26/18 13:47 Troponin I 0.19 H B-Natriuretic Peptide 17389.0 H Abnormal Lab Results 09/26/18 09/26/18 09/26/18 13:47 13:47 13:47 RDW 16.5 H Nucleated RBC % 1 H PT with INR 16.30 H INR 1.38 H Sodium 133 L Potassium 5.2 H Carbon Dioxide 19 L BUN 72 H Creatinine 3.5 H Magnesium 2.5 H AST 296 H ALT 181 H Alkaline Phosphatase 123 H Troponin I 0.19 H B-Natriuretic Peptide 83720.0 H Ejection Fraction %: LVEF < 40 % Imaging - Results Chest X-ray: Image Reviewed (no acute CHF) Problem List - Problems (1) Acute on chronic systolic and diastolic heart failure, NYHA class 1 Assessment/Plan: On carvedilol. Problematic using ACEI, ARB, or RAAS due to renal dysfunction, prior hyperkalemia. Pt has also had ?angioedema with ACEI. Consider starting hydralazine + nitrate when volume status is stable and if not significantly orthostatic. Code(s): I50.43 - ACUTE ON CHRONIC COMBINED SYSTOLIC AND DIASTOLIC HRT FAIL (2) Hypotension Code(s): I95.9 - HYPOTENSION, UNSPECIFIED Qualifiers: Hypotension type: other hypotension type Qualified Code(s): I95.89 - Other hypotension (3) AICD (automatic cardioverter/defibrillator) present Code(s): Z95.810 - PRESENCE OF AUTOMATIC (IMPLANTABLE) CARDIAC DEFIBRILLATOR (4) Anxiety and depression Assessment/Plan: ON SSRI. Code(s): F41.9 - ANXIETY DISORDER, UNSPECIFIED; F32.9 - MAJOR DEPRESSIVE DISORDER, SINGLE EPISODE, UNSPECIFIED (5) Acute on chronic renal failure Assessment/Plan: Doubling of creatinine since discharge from hospital last week. Pt says he has not taken furosemide or other diuretics for the past week, but has been drinking very little water or other fluids. Now being given IVF 250 ml bolus, with planned 50 ml/hr IV. F/u BUN/Cr, electrolytes, daily weight, Is and Os, orthostatic vital signs. Code(s): N17.9 - ACUTE KIDNEY FAILURE, UNSPECIFIED; N18.9 - CHRONIC KIDNEY DISEASE, UNSPECIFIED
[2018-09-26] MEDS ORDERED: SODIUM CHLORIDE 0.45% 1,000 ML IV SCH (19:00)
[2018-09-26] MEDS ORDERED: PARoxetine HCL 10 MG TABLET (FP) PO SCH (22:00)
[2018-09-26] MEDS: PHENYLEPHRINE HCL 20,000 MCG in SODIUM CHLORIDE 248 ML IVPB SCH (22:54)
--- NOTE | 2018-09-27 03:20 | CONSULT ---
Consult Consult Specialty:: ICU Referred by:: nemesio Reason for Consultation:: Hypotension, Acute CHF, ESTELLA - History of Present Illness Chief Complaint: exertional dyspnea History of Present Illness: 83 yr old man with CHF with LV dysfunction, HTN, s/p pacer/ICD placement, AV and MV replacement recently discharged from [facility] after receiving tx for viral syndrome found to have elevated troponins and BNP now presents 1 week later with worsening exertional dyspnea, decr urine output and found to be hypotensive. since dc he has increased shortness of breath to the point that he was unable to climb up his usual stairs, today he made it a few steps but could no longer catch his breath and had to lay flat until the ambulance arrived. He was seen by his PCP last tuesday and had his anti-HTN moved from HS dose to AM. He notes his urine is darker and less frequent a/w decr po intake of both food and water. notes poor appetite and nausea for past few weeks with unintentional weightloss of "few pounds." has had loose watery bowel movements since dc denies chest pain, dizziness, lightheadedness, palpitations, cough, fevers, abdominal pain, hematuria, hematochezia, pruritis. - Past Medical History FILM CLEANER: Yes: TIA Cardio/Vascular: Yes: CHF, HTN, Hyperlipdemia, Murmur. No: Aneurysm, Aortic Insufficiency, Aortic Stenosis, CAD, Deep Vein Thrombosis, [place], Mitral Insufficiency, Mitral Stenosis, Pulmonary Hypertension, Other Renal/: Yes: Renal Inusuff (CKD (stage 1)). No: Renal Failure, BPH, Cancer, Hematuria, Hemodialysis, Neurogenic Bladder, Renal Calculi, UTI, Other Psych: Yes: Anxiety, Other (affective dz) Musculoskeletal: Yes: Osteoarthritis Rheumatology: Yes: Gout. No: Fibromyalgia, Lupus, Rheumatoid Arthritis, Sarcoidosis, Vasculitis, Other Endocrine: Yes: Hypothyroidism, Other (Gluc intolerance) - Past Surgical History Past Surgical History: Yes: Permanent Pacemaker, Valve Replacement. No: None, AAA Repair, AICD, Amputation, Appendectomy, Arthrosocopy, AV Fistula/Graft, Bariatric Surgery, Breast Biopsy, Bypass, CABG, Carotid Endarterectomy, Cataract Removal, Cholecystectomy, Colectomy, Colonoscopy, Colostomy, Craniotomy , , Cystectomy, Hernia Repair, Hysterectomy, Ileal Conduit, Ileosotomy , Joint Replacement, Kidney Transplant, Laminectomy, Liver Transplant, Mastectomy, Nephrectomy, Oopherectomy, Orchiectomy, Prostatectomy, Splenectomy, Stent, Thoracotomy, TURP, Tonsillectomy, Tubal Ligation, Upper Endoscopy, Vasectomy, Vein Stripping/Ligation - Alcohol/Substance Use Hx Alcohol Use: No History of Substance Use: reports: None - Smoking History Smoking history: Former smoker Have you smoked in the past 12 months: No Aproximately how many cigarettes per day: 20 If you are a former smoker, when did you quit?: 4 years ago - Social History Usual Living Arrangement: Alone ADL: Independent 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 History of Recent Travel: Yes (went to [place] 1 week ago) Home Medications - Allergies Allergies/Adverse Reactions: Allergies Allergy/AdvReac Type Severity Reaction Status Date / Time lisinopril Allergy Intermediate Cough Verified 09/26/18 13:10 Penicillins Allergy Intermediate Rash Verified 09/26/18 13:10 pravastatin sodium Allergy Intermediate MUSCLE PAIN Verified 09/26/18 13:10 [From Pravachol] simvastatin [From Zocor] Allergy Intermediate MUSCLE PAIN Verified 09/26/18 13: 10 sertraline Allergy Unknown Verified 09/26/18 13:10 - Home Medications Home Medications: Ambulatory Orders Allopurinol [Zyloprim -] 300 mg PO DAILY 12/19/15 Aspirin [ASA -] 81 mg PO DAILY 12/19/15 Clopidogrel Bisulfate [Plavix -] 75 mg PO DAILY 12/19/15 Levothyroxine [Synthroid -] 25 mcg PO DAILY 12/19/15 Paroxetine HCl [Paxil -] 10 mg PO DAILY 12/19/15 Rosuvastatin [Crestor -] 20 mg PO HS 12/19/15 Furosemide [Lasix -] 40 mg PO DAILY 06/30/16 Colesevelam HCl [Welchol (Nf)] 625 mg PO DAILY 06/13/17 Family Disease History - Family Disease History Family Disease History: Diabetes: Mother, Heart Disease: Mother Review of Systems - Review of Systems Constitutional: reports: Loss of Appetite, Unintentional Wgt. Loss, Weakness. denies: Fever Eyes: reports: No Symptoms HENT: reports: No Symptoms, Other (for past 2 weeks has had clear rhinorrhea in the morning that clears up later in the day) Neck: reports: No Symptoms Cardiovascular: reports: Shortness of Breath Respiratory: reports: No Symptoms Gastrointestinal: reports: Other (loose bowel movements) Genitourinary: denies: Burning, Discharge, Dysuria, Flank Pain, Hematuria, Incontinence Musculoskeletal: reports: No Symptoms Integumentary: reports: No Symptoms Neurological: reports: No Symptoms Endocrine: reports: No Symptoms Hematology/Lymphatic: denies: Easily Bruised, Excessive Bleeding Physical Exam Vital Signs: Vital Signs Temperature 97.9 F 09/27/18 02:22 Pulse Rate 78 09/27/18 02:22 Respiratory Rate 20 09/27/18 02:22 Blood Pressure 113/82 09/27/18 02:22 O2 Sat by Pulse Oximetry (%) 97 09/27/18 02:22 Constitutional: Yes: No Distress, Calm Eyes: Yes: Conjunctiva Clear, EOM Intact, PERRL HENT: Yes: Atraumatic, Normocephalic. No: Rhinnorhea, Thrush Neck: Yes: Supple, Trachea Midline. No: Lymphadenopathy, Thyromegaly Cardiovascular: Yes: Regular Rate and Rhythm, Other (paced rhythm). No: Murmur Respiratory: Yes: Regular, On Nasal O2, Other (quiet at bases). No: Stridor, Wheezes Gastrointestinal: Yes: Normal Bowel Sounds, Soft. No: Tenderness Musculoskeletal: No: Joint Swelling, Muscle Pain, Muscle Weakness Edema: No Peripheral Pulses WNL: Yes Integumentary: Yes: WNL Neurological: Yes: Alert, Oriented, Cran Nerves II-XII Intact ...Motor Strength: WNL (5/5 hand early intervention specialist and hip extension, facial symmetry) Labs: CBC, BMP 09/26/18 13:47 09/26/18 13:47 Assessment/Plan 83 yr old man with HFrEF, HTN presents with progressively worsening dyspnea found to be hypotensive with transaminitis and ESTELLA. symptoms attributed to being volume depleted from poor po intake for past few days. - Cardiovascular ( last echo 09/13/2018 with global hypokinesis, LV and RV dysfunction), s/p pacer placement pt received 250cc bolus in the ED and placed on phenylephrine for pressure support as pt declined to have a central line placed. he will consider central line placement if his BP is uncontrolled on peripherally acting agents - cautious fluids due to poor cardiac function, 1/2NS @50cc/hr - check weights and uop - cardio consult: Dr. Landon has a hx of troponinemia, currently elevated from previous dc likely due to demand ischemia and renal dysfunction pleural effusions noted in ED POC ultrasound, none reported on cxy - Pulm - maintaining airway, wants to be intubated for respiratory support if needed - Renal - ESTELLA on CKD with , previous renal u/s was 08/30/2015, pending repeat chem panel post bolus and IVF for further evaluation, urine studies sent abdominal ultrasound to evaluate kidneys and liver, r/o obstruction - Fluids, electrolytes, nutrition (FEN) 08/30 NS @50cc/hr hypoNa @133 and HyperK @5.2, check urine studies and repeat in the AM post IVF soft renal low sodium diet - Gastrointestinal - elevated INR and transaminitis congestive hepatapothy vs hypotensive injury trend levels in the am - Psychiatric - anxiety on paxil po - Prophylaxis TEDS for VTE GI prophylaxis - pepcid Code Status, verbally designated his son Endy and cousin Carlo as his HCPs( call his son first), Full Code
[2018-09-27] MEDS: PHENYLEPHRINE HCL 20,000 MCG in SODIUM CHLORIDE 248 ML IVPB SCH ×3 (03:32→21:55)
[2018-09-27] MEDS: LEVOTHYROXINE NA 50 MCG TABLET (FP) PO SCH (06:33)
[2018-09-27 06:36] LABS: ALBUMIN 3.2 g/dl (3.4-5.0); ALK PHOS 119 U/L (45-117); ANION GAP 14 MMOL/L (8-16); BLOOD UREA NITROGEN 75 mg/dL (7-18); CALCIUM 8.5 mg/dL (8.5-10.1); CHLORIDE 103 mmol/L (98-107); CO2 18 mmol/L (21-32); CREATININE 3.3 mg/dL (0.55-1.3); GLUCOSE,RANDOM 78 mg/dL (74-106); POTASSIUM 5.1 mmol/L (3.5-5.1); SGOT/AST 190 U/L (15-37); SGPT/ALT 168 U/L (13-61); SODIUM 134 mmol/L (136-145); TOT PROT 6.1 g/dl (6.4-8.2)
[2018-09-27] MEDS ORDERED: SODIUM CHLORIDE 0.45% 1,000 ML IV SCH ×2 (08:13→10:52)
[2018-09-27 08:18] LABS: BASO % 0.7 % (0-2.0); EOS % 1.3 % (0-4.5); HEMATOCRIT 40.9 % (35.4-49); HEMOGLOBIN 13.4 GM/dL (11.7-16.9); LYMPH % 20.5 % (8-40); MCH 31.6 pg (25.7-33.7); MCHC 32.8 g/dl (32.0-35.9); MEAN CELL VOLUME 96.4 fl (80-96); MEAN PLT VOLUME 9.5 fl (7.5-11.1); MONO % 10.8 % (3.8-10.2); NEUT % 66.7 % (42.8-82.8); PLATELET COUNT 175 K/MM3 (134-434); RBC 4.24 M/mm3 (4.00-5.60); RDW 16.8 % (11.9-15.9); WHITE BLOOD COUNT 7.9 K/mm3 (4.0-10.0)
[2018-09-27] MEDS: FAMOTIDINE 20 MG/50 ML IVPB 20 MG/50 ML MG IVPB SCH ×2 (10:08→21:55)
[2018-09-27] MEDS: CLOPIDOGREL BISULFATE 75 MG TABLET (FP) PO SCH (10:08)
[2018-09-27] MEDS ORDERED: PROMETHAZINE HCL 25 MG/1 ML VIAL IVPUSH ONE (10:52)
--- NOTE | 2018-09-27 11:55 | PN ---
Progress Note (short form) - Note Progress Note: Current Medications Clopidogrel Bisulfate (Plavix -) 75 mg PO DAILY [facility] Last Admin: 09/27/18 10:08 Dose: 75 mg Phenylephrine HCl 20,000 mcg/ (Sodium Chloride) 250 mls @ 75 mls/hr IVPB [facility]IR [facility]; Protocol Last Admin: 09/27/18 10:47 Dose: 100 mcg/min, 75 mls/hr Famotidine/Sodium Chloride (Pepcid 20 Mg Premixed Ivpb -) 20 mg in 50 mls @ 100 mls/hr IVPB BID [facility] Last Admin: 09/27/18 10:08 Dose: 100 mls/hr Sodium Chloride (1/2 Normal Saline) 1,000 mls @ 50 mls/hr IV ASDIR [facility] Stop: 09/27/18 18:56 Last Admin: 09/27/18 11:27 Dose: Not Given Levothyroxine Sodium (Synthroid -) 50 mcg PO DAILY@0700 [facility] Last Admin: 09/27/18 06:33 Dose: 50 mcg Paroxetine HCl (Paxil -) 5 mg PO HS [facility] Last Admin: 09/26/18 23:55 Dose: 5 mg Laboratory Results - last 24 hr 09/26/18 09/26/18 09/26/18 13:47 13:47 13:47 WBC 6.4 RBC 4.31 Hgb 13.8 Hct 41.1 MCV 95.4 MCH 32.0 MCHC 33.5 RDW 16.5 H Plt Count 177 D MPV 9.1 Absolute Neuts (auto) 4.4 Neutrophils % 69.7 Lymphocytes % 21.5 Monocytes % 7.5 Eosinophils % 0.7 Basophils % 0.6 Nucleated RBC % 1 H PT with INR 16.30 H INR 1.38 H Sodium 133 L Potassium 5.2 H Chloride 102 Carbon Dioxide 19 L Anion Gap 12 BUN 72 H Creatinine 3.5 H Creat Clearance w eGFR 16.85 Random Glucose 105 Calcium 8.5 Phosphorus Magnesium 2.5 H Total Bilirubin 0.9 AST 296 H ALT 181 H Alkaline Phosphatase 123 H Creatine Kinase 86 Troponin I 0.19 H B-Natriuretic Peptide 50597.0 H Total Protein 6.8 Albumin 3.5 TSH 09/27/18 09/27/18 09/27/18 05:15 05:15 05:15 WBC 7.9 RBC 4.24 Hgb 13.4 Hct 40.9 MCV 96.4 H MCH 31.6 MCHC 32.8 RDW 16.8 H Plt Count 175 MPV 9.5 Absolute Neuts (auto) 5.3 Neutrophils % 66.7 Lymphocytes % 20.5 Monocytes % 10.8 H Eosinophils % 1.3 D Basophils % 0.7 Nucleated RBC % 1 H PT with INR INR Sodium 134 L Potassium 5.1 Chloride 103 Carbon Dioxide 18 L Anion Gap 14 BUN 75 H Creatinine 3.3 H Creat Clearance w eGFR 18.04 Random Glucose 78 Calcium 8.5 Phosphorus Cancelled Magnesium Cancelled Total Bilirubin 1.0 AST 190 H ALT 168 H Alkaline Phosphatase 119 H Creatine Kinase 72 Troponin I 0.23 H B-Natriuretic Peptide Total Protein 6.1 L Albumin 3.2 L TSH 0.84 D Vital Signs Temperature 97.3 F L 09/27/18 10:00 Pulse Rate 74 09/27/18 10:00 Respiratory Rate 25 H 09/27/18 10:00 Blood Pressure 107/70 09/27/18 10:00 O2 Sat by Pulse Oximetry (%) 99 09/27/18 08:10 CC: nausea on and off ``````````````````````````` skin--NL color heart--RR lungs--grossly clear abd--soft, NT, ND ext--no edema neuro--alert, lucid, coherent, no focal deficits ``````````````````````````````````````````` summ > Hypotension--mulitfactorial; element of dehydration along with global ventricular dysf resulting in "low flow" state PLAN: IVF; and phenyleph drip for now. > Chronic CHF--biventricular disease; previously well compensated, CXR w/o congestion: PLAN: cont anti-PLt meds; for transfer to [facility] as per Cardiology for further studies > Azotemia--dehydration superimposed on CKD PLAN: gentle hydration to hopefully reach his baseline Bun/Cr (about 40 and 2.5) > high LFTs--not entirely a new occurence, LFTs lower today than yesterday, but did not have this on his prior admission. Most likely 2nd passive hepatic congestion. Effect of statin also a possible cause. Doubt hepato-cellular disease per se. PLAN abd US taken > High troponin--persistently up; unsure of specificity considering the chronic CHF and renal disease/dehydration > hypothyroid--clinically euthyroid; TSH okay > nausea--on and off; cause unclear ~~~~~~~~~~~~~~~~~~~~~~ Dr Desai Problem List - Problems (1) Hypotension Code(s): I95.9 - HYPOTENSION, UNSPECIFIED Qualifiers: Hypotension type: other hypotension type Qualified Code(s): I95.89 - Other hypotension (2) Chronic diastolic CHF (congestive heart failure), NYHA class 3 Code(s): I50.32 - CHRONIC DIASTOLIC (CONGESTIVE) HEART FAILURE (3) Chronic renal insufficiency Code(s): N18.9 - CHRONIC KIDNEY DISEASE, UNSPECIFIED Qualifiers: Chronic kidney disease stage: stage 3 (moderate) Qualified Code(s): N18.3 - Chronic kidney disease, stage 3 (moderate) (4) Elevated troponin Code(s): R74.8 - ABNORMAL LEVELS OF OTHER SERUM ENZYMES (5) Transaminasemia Code(s): R74.0 - NONSPEC ELEV OF LEVELS OF TRANSAMNS & LACTIC ACID DEHYDRGNSE (6) Encounter for long-term use of antiplatelets/antithrombotics Code(s): Z79.02 - MANAGEMENT RETAIL INTERN (CURRENT) USE OF ANTITHROMBOTICS/ANTIPLATELETS (7) AICD (automatic cardioverter/defibrillator) present Code(s): Z95.810 - PRESENCE OF AUTOMATIC (IMPLANTABLE) CARDIAC DEFIBRILLATOR (8) Carotid occlusion, left Code(s): I65.22 - OCCLUSION AND STENOSIS OF LEFT CAROTID ARTERY (9) PAD (peripheral artery disease) Code(s): I73.9 - PERIPHERAL VASCULAR DISEASE, UNSPECIFIED (10) Gout Code(s): M10.9 - GOUT, UNSPECIFIED Qualifiers: Gout etiology: unspecified cause Presence of tophus: without tophus (11) Hypothyroid Code(s): E03.9 - HYPOTHYROIDISM, UNSPECIFIED Qualifiers: Hypothyroidism type: acquired Qualified Code(s): E03.9 - Hypothyroidism, unspecified (12) Dysthymia (or depressive neurosis) Code(s): F34.1 - DYSTHYMIC DISORDER (13) MGUS (monoclonal gammopathy of unknown significance) Code(s): D47.2 - MONOCLONAL GAMMOPATHY
[2018-09-27 12:27] LABS: URINE APPEARANCE SLCLOUDY; URINE BILIRUBIN NEGATIVE (<2.0 mg/dL); URINE COLOR YELLOW; URINE GLUCOSE (UA) NEGATIVE (NEGATIVE); URINE KETONE NEGATIVE (NEGATIVE); URINE LEUK ESTERASE NEGATIVE (NEGATIVE); URINE NITRITE NEGATIVE (NEGATIVE); URINE PROTEIN 1+ (NEGATIVE); URINE UROBILINOGEN NEGATIVE mg/dL (0.2-1.0)
[2018-09-27 12:32] LABS: PHOSPHOROUS 5.6 mg/dL (2.5-4.9)
[2018-09-27 12:33] LABS: MAGNESIUM 2.3 mg/dL (1.8-2.4)
--- NOTE | 2018-09-27 12:50 | PN ---
Teaching Attending Note Name of Resident: yCnthia Elizabeth ATTENDING PHYSICIAN STATEMENT I saw and evaluated the patient. I reviewed the resident's note and discussed the case with the resident. I agree with the resident's findings and plan as documented. SUBJECTIVE: Pt seen and examined in the ICU. Breathing better today but remains nauseous. On low dose phenylephrine gtt. OBJECTIVE: Vital Signs Period Temp Pulse Resp BP Sys/Rmairez Pulse Ox Last 24 Hr 97.3 F-97.9 F 74-78 18-25 77-113/50-82 97-100 Intake & Output 09/24/18 09/25/18 09/26/18 09/27/18 23:59 23:59 23:59 23:59 Intake Total 450 Balance 450 Weight 89.811 kg 89.811 kg Gen: breathing nonlabored Heart: RRR Lung: basilar rales Abd: soft, nontender Ext: no edema CBC, BMP 09/27/18 05:15 09/27/18 05:15 Active Medications Aspirin (Ecotrin -) 81 mg PO DAILY [facility] Clopidogrel Bisulfate (Plavix -) 75 mg PO DAILY [facility] Last Admin: 09/27/18 10:08 Dose: 75 mg Phenylephrine HCl 20,000 mcg/ (Sodium Chloride) 250 mls @ 75 mls/hr IVPB ASDIR [facility]; Protocol Last Admin: 09/27/18 10:47 Dose: 100 mcg/min, 75 mls/hr Famotidine/Sodium Chloride (Pepcid 20 Mg Premixed Ivpb -) 20 mg in 50 mls @ 100 mls/hr IVPB BID [facility] Last Admin: 09/27/18 10:08 Dose: 100 mls/hr Sodium Chloride (1/2 Normal Saline) 1,000 mls @ 50 mls/hr IV ASDIR [facility] Stop: 09/27/18 18:56 Last Admin: 09/27/18 11:27 Dose: Not Given Levothyroxine Sodium (Synthroid -) 50 mcg PO DAILY@0700 [facility] Last Admin: 09/27/18 06:33 Dose: 50 mcg Paroxetine HCl (Paxil -) 5 mg PO HS [facility] Last Admin: 09/26/18 23:55 Dose: 5 mg ASSESSMENT AND PLAN: Acute on Chronic Renal Failure Severe LV Systolic Dysfunction s/p PPM Shock - ?Hypovolemic +Troponins likely Demand Ischemia CAD Elevated LFTs HTN Hypothyroidism Anxiety - IVF boluses as needed - taper off phenylephrine gtt - abdominal ultrasound - ASA, plavix - for transfer to [facility] for further work up per cardiology
[2018-09-27 12:52] LABS: URINE MUCUS RARE
--- NOTE | 2018-09-27 14:45 | PN ---
Physical Exam: SUBJECTIVE: Patient seen and examined this morning in ICU. Denies any recent orthopnea but does endorse decreased PO intake and decreased exercise tolerance. Currently only complains of Nausea; Denies any fevers, chills, chest pain, SOB, nausea, vomiting, diarrhea, constipation. OBJECTIVE: Vital Signs Period Temp Pulse Resp BP Sys/Ramirez Pulse Ox Last 24 Hr 97.3 F-97.9 F 74-78 18-25 77-113/44-82 97-99 GENERAL: A&Ox3, NAD HEAD: NCAT EYES: PERRL, EOMI ENT: Moist mucous membranes NECK: Supple, No JVD LUNGS: CTA b/l, no wheezes, no crackles HEART: Regular rate and rhythm, S1, S2 ABDOMEN: Soft, nontender, nondistended, + bowel sounds, no guarding EXTREMITIES: No edema. NEUROLOGICAL: Cranial nerves II through XII grossly intact. Normal speech SKIN: Warm, dry Laboratory Results - last 24 hr 09/26/18 09/26/18 09/26/18 13:47 13:47 13:47 WBC 6.4 RBC 4.31 Hgb 13.8 Hct 41.1 MCV 95.4 MCH 32.0 MCHC 33.5 RDW 16.5 H Plt Count 177 D MPV 9.1 Absolute Neuts (auto) 4.4 Neutrophils % 69.7 Lymphocytes % 21.5 Monocytes % 7.5 Eosinophils % 0.7 Basophils % 0.6 Nucleated RBC % 1 H PT with INR 16.30 H INR 1.38 H Sodium 133 L Potassium 5.2 H Chloride 102 Carbon Dioxide 19 L Anion Gap 12 BUN 72 H Creatinine 3.5 H Creat Clearance w eGFR 16.85 Random Glucose 105 Calcium 8.5 Phosphorus Magnesium 2.5 H Total Bilirubin 0.9 AST 296 H ALT 181 H Alkaline Phosphatase 123 H Creatine Kinase 86 Troponin I 0.19 H B-Natriuretic Peptide 59666.0 H Total Protein 6.8 Albumin 3.5 TSH Urine Color Urine Appearance Urine pH Ur Specific [place] Urine Protein Urine Glucose (UA) Urine Ketones Urine Blood Urine Nitrite Urine Bilirubin Urine Urobilinogen Ur Leukocyte Esterase Urine WBC (Auto) Urine RBC (Auto) Urine Mucus 09/27/18 09/27/18 09/27/18 05:15 05:15 05:15 WBC 7.9 RBC 4.24 Hgb 13.4 Hct 40.9 MCV 96.4 H MCH 31.6 MCHC 32.8 RDW 16.8 H Plt Count 175 MPV 9.5 Absolute Neuts (auto) 5.3 Neutrophils % 66.7 Lymphocytes % 20.5 Monocytes % 10.8 H Eosinophils % 1.3 D Basophils % 0.7 Nucleated RBC % 1 H PT with INR INR Sodium 134 L Potassium 5.1 Chloride 103 Carbon Dioxide 18 L Anion Gap 14 BUN 75 H Creatinine 3.3 H Creat Clearance w eGFR 18.04 Random Glucose 78 Calcium 8.5 Phosphorus 5.6 H Cancelled Magnesium 2.3 Cancelled Total Bilirubin 1.0 AST 190 H ALT 168 H Alkaline Phosphatase 119 H Creatine Kinase 72 Troponin I 0.23 H B-Natriuretic Peptide Total Protein 6.1 L Albumin 3.2 L TSH 0.84 D Urine Color Urine Appearance Urine pH Ur Specific [place] Urine Protein Urine Glucose (UA) Urine Ketones Urine Blood Urine Nitrite Urine Bilirubin Urine Urobilinogen Ur Leukocyte Esterase Urine WBC (Auto) Urine RBC (Auto) Urine Mucus 09/27/18 09/27/18 11:30 12:29 WBC RBC Hgb Hct MCV MCH MCHC RDW Plt Count MPV Absolute Neuts (auto) Neutrophils % Lymphocytes % Monocytes % Eosinophils % Basophils % Nucleated RBC % PT with INR INR Sodium Potassium Chloride Carbon Dioxide Anion Gap BUN Creatinine Creat Clearance w eGFR Random Glucose Calcium Phosphorus Magnesium Total Bilirubin AST ALT Alkaline Phosphatase Creatine Kinase Troponin I 0.28 H B-Natriuretic Peptide Total Protein Albumin TSH Urine Color Yellow Urine Appearance Slcloudy Urine pH 5.0 Ur Specific [place] 1.013 Urine Protein 1+ H Urine Glucose (UA) Negative Urine Ketones Negative Urine Blood 1+ H Urine Nitrite Negative Urine Bilirubin Negative Urine Urobilinogen Negative Ur Leukocyte Esterase Negative Urine WBC (Auto) 2 Urine RBC (Auto) None Urine Mucus Rare Active Medications Aspirin (Ecotrin -) 81 mg PO DAILY [facility] Clopidogrel Bisulfate (Plavix -) 75 mg PO DAILY [facility] Last Admin: 09/27/18 10:08 Dose: 75 mg Phenylephrine HCl 20,000 mcg/ (Sodium Chloride) 250 mls @ 75 mls/hr IVPB [facility]; Protocol Last Admin: 09/27/18 10:47 Dose: 100 mcg/min, 75 mls/hr Famotidine/Sodium Chloride (Pepcid 20 Mg Premixed Ivpb -) 20 mg in 50 mls @ 100 mls/hr IVPB BID [facility] Last Admin: 09/27/18 10:08 Dose: 100 mls/hr Sodium Chloride (1/2 Normal Saline) 1,000 mls @ 50 mls/hr IV ASDIR [facility] Stop: 09/27/18 18:56 Last Admin: 09/27/18 11:27 Dose: Not Given Levothyroxine Sodium (Synthroid -) 50 mcg PO DAILY@0700 [facility] Last Admin: 09/27/18 06:33 Dose: 50 mcg Paroxetine HCl (Paxil -) 5 mg PO HS [facility] Last Admin: 09/26/18 23:55 Dose: 5 mg ASSESSMENT/PLAN: 83 y/o M with PMHx of HFrEF s/p AICD, HTN, HLD, PAD, Prior TIA, CKD (stage 1), MGUS, ANxiety, OA, Gout, Hypothyroidism presents with worsening dyspnea, found to be hypotensive and will be monitorred in ICU. #Neuro Hx of Prior TIA, Anxiety -No Active Issues, Continue to monitor -Continue Paroxetine 5mg PO HS #Cardio Hx of HFrEF s/p AICD, HTN, HLD, PAD Elevated Troponin, BNP -Hypotensive on Admission likely due to dehydration vs Low EF -S/P 250 mls Bolus; Continue NS @ 50 mls/hr -Continue Phenylephrine; Taper to maintain MAP > 65 -ECHO (09/13): LV Systolic function severely reduced, LV Severe global hypokinesis, LA and RA Severly dilated, Mod to Severe TR, RV systolic pressure elevated, prosthetic Aortic valve, Mild AR, moderate MR -EKG: AV dual-paced rhythm with prolonged AV conduction, Biventricular pacemaker detected, VR 75, QTc 567 -Continue ASA, Plavix -Hold home dose Carvedilol, Furosemide, Statin -Cardiology (Dr. Landon) Consulted, Appreciate Rec's -Will transfer to [facility] as per cardiology #Pulm -CXR: No acute chest pathology. Large heart -Maintaining Airway, No Active Issues, Continue to monitor -Supplemental O2 to maintian Sat > 90% #GI Transaminitis, Improving this AM Elevated INR Nausea, Unclear Etiology -WNL on prior visit; Likely due to congestion -Abdomen/Liver US pending -Hold home dose statin -Continue to monitor #Renal ESTELLA CKD (stage 1) -UA 1+ Protein -BUN 46 and Cr 1.8 on prior visit; Baseline ~40/2.5 -Likely due to Hypoperfusion -NS @ 50 mls/hr -Hold home dose Lasix -Kidney/Renal US, Urine Studies Pending -Trend BUN, Cr, lytes -Monitor daily weight, I&Os #Heme MGUS -Stable with No Active Issues, Continue to monitor #Endocrine Hypothyroidism -TSH 0.84 -Continue Levothyroxine 50mcg PO DAILY #ID -Afebrile without elevated WBC Count -No Active Issues, Continue to monitor #MSK Hx of OA, Gout -Stable with No Active Issues, Continue to monitor -Continue home dose Allopurinol #FEN -NS @ 50 mls/hr -Replete Lytes PRN -Soft, Renal diet; NPO After midnight for possible Cardiac procedure #PPx -DVT: SCDs -GI: Famotidine Code status: Full Code Dispo: Continue to monitor in ICU Visit type - Emergency Visit Emergency Visit: Yes ED Registration Date: 09/26/18 Care time: The patient presented to the Emergency Department on the above date and was hospitalized for further evaluation of their emergent condition. - New Patient This patient is new to me today: Yes Date on this admission: 09/27/18 - Critical Care Critical Care patient: Yes Total Critical Care Time (in minutes): 45 Critical Care Statement: The care of this patient involved high complexity decision making to prevent further life threatening deterioration of the patient 's condition and/or to evaluate & treat vital organ system(s) failure or risk of failure.
[2018-09-27] MEDS ORDERED: DOPAMINE 400 MG/D5W - 400,000 MCG/250 ML INFUS.BAG IVPB SCH (16:15)
[2018-09-27] MEDS ORDERED: MAG HYDROX/AL HYDROX/SIMETH 30 ML UNIT-DOSE CUP PO ONE ×2 (18:04→22:25)
--- NOTE | 2018-09-27 18:04 | HOSP ---
Subjective - Review of Symptoms Events since last encounter: pt complains of chest pain and heart rate went up to 130 I stop dopamin restart Phenylphrine trop trend EKG CXR place a call for cardiology Dr. Lewis one dose of mylax was given Physical Examination Vital Signs: Vital Signs Temperature 98.2 F 09/27/18 16:54 Pulse Rate 75 09/27/18 16:55 Respiratory Rate 25 H 09/27/18 16:55 Blood Pressure 91/65 09/27/18 17:31 O2 Sat by Pulse Oximetry (%) 99 09/27/18 08:10 Labs: CBC, BMP 09/27/18 05:15 09/27/18 05:15 Visit type - Emergency Visit Emergency Visit: Yes ED Registration Date: 09/26/18 Care time: The patient presented to the Emergency Department on the above date and was hospitalized for further evaluation of their emergent condition. - New Patient This patient is new to me today: No - Critical Care Critical Care patient: Yes Total Critical Care Time (in minutes): 20
--- NOTE | 2018-09-27 18:43 | PN ---
Progress Note, Physician History of Present Illness: The patient is an 83 white man with a PMH of HTN, severe systolic CHF-->ICD, bivi pacing HTN, CAD, Gout, OA, Hypothyroidism, and anxiety, who presents to the ER with complaints of worsening SOB. The patient states that for the past 5 days (since he was discharged from our facility), he's had worsening SOB with exertion. He states that today, he was supposed to follow up with his PCP but became so "winded" going up the stairs that he called EMS and presented to the ER. He admits to SMITH and no orthopnea, resting SOB, CP, fever, chills, vomiting. He also admits to nausea. He denies any other acute complaints. PMH s/p bio AVR and MV repair as per HPI Ongoing medical problems [employer] AICD BIvi-pacing 2015 Dr. 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 2014 - Current Medication List Current Medications: Active Medications Aspirin (Ecotrin -) 81 mg PO DAILY [facility] Clopidogrel Bisulfate (Plavix -) 75 mg PO DAILY [facility] Last Admin: 09/27/18 10:08 Dose: 75 mg Phenylephrine HCl 20,000 mcg/ (Sodium Chloride) 250 mls @ 75 mls/hr IVPB ASDIR [facility]; Protocol Last Titration: 09/27/18 16:00 Dose: 150 mcg/min, 112.5 mls/hr Famotidine/Sodium Chloride (Pepcid 20 Mg Premixed Ivpb -) 20 mg in 50 mls @ 100 mls/hr IVPB BID [facility] Last Admin: 09/27/18 10:08 Dose: 100 mls/hr Sodium Chloride (1/2 Normal Saline) 1,000 mls @ 50 mls/hr IV ASDIR [facility] Stop: 09/27/18 18:56 Last Admin: 09/27/18 11:27 Dose: Not Given Levothyroxine Sodium (Synthroid -) 50 mcg PO DAILY@0700 [facility] Last Admin: 09/27/18 06:33 Dose: 50 mcg - Objective Vital Signs: Vital Signs Temperature 98.2 F 09/27/18 16:54 Pulse Rate 75 09/27/18 16:55 Respiratory Rate 25 H 09/27/18 16:55 Blood Pressure 91/65 09/27/18 17:31 O2 Sat by Pulse Oximetry (%) 99 09/27/18 08:10 Eyes: Yes: WNL, Conjunctiva Clear, EOM Intact HENT: Yes: WNL, Atraumatic, Normocephalic Neck: Yes: WNL, Supple, Trachea Midline Cardiovascular: Yes: WNL, Regular Rate and Rhythm Respiratory: Yes: WNL, Regular, CTA Bilaterally Gastrointestinal: Yes: WNL, Normal Bowel Sounds Genitourinary: Yes: WNL Musculoskeletal: Yes: WNL Extremities: Yes: WNL Edema: No Integumentary: Yes: WNL Neurological: Yes: WNL, Alert, Oriented ...Motor Strength: WNL Psychiatric: Yes: WNL Labs: CBC, BMP 09/27/18 05:15 09/27/18 05:15 INR, PTT INR 1.38 (0.83-1.09) H 09/26/18 13:47 Laboratory Tests 09/26/18 09/26/18 09/26/18 13:47 13:47 13:47 WBC 6.4 RBC 4.31 Hgb 13.8 Hct 41.1 MCV 95.4 MCH 32.0 MCHC 33.5 RDW 16.5 H Plt Count 177 D MPV 9.1 Absolute Neuts (auto) 4.4 Neutrophils % 69.7 Lymphocytes % 21.5 Monocytes % 7.5 Eosinophils % 0.7 Basophils % 0.6 Nucleated RBC % 1 H PT with INR 16.30 H INR 1.38 H Sodium 133 L Potassium 5.2 H Chloride 102 Carbon Dioxide 19 L Anion Gap 12 BUN 72 H Creatinine 3.5 H Creat Clearance w eGFR 16.85 Random Glucose 105 Calcium 8.5 Phosphorus Magnesium 2.5 H Total Bilirubin 0.9 AST 296 H ALT 181 H Alkaline Phosphatase 123 H Creatine Kinase 86 Troponin I 0.19 H B-Natriuretic Peptide 64459.0 H Total Protein 6.8 Albumin 3.5 TSH Urine Color Urine Appearance Urine pH Ur Specific [place] Urine Protein Urine Glucose (UA) Urine Ketones Urine Blood Urine Nitrite Urine Bilirubin Urine Urobilinogen Ur Leukocyte Esterase Urine WBC (Auto) Urine RBC (Auto) Urine Mucus Urine Creatinine 09/27/18 09/27/18 09/27/18 05:15 05:15 05:15 WBC 7.9 RBC 4.24 Hgb 13.4 Hct 40.9 MCV 96.4 H MCH 31.6 MCHC 32.8 RDW 16.8 H Plt Count 175 MPV 9.5 Absolute Neuts (auto) 5.3 Neutrophils % 66.7 Lymphocytes % 20.5 Monocytes % 10.8 H Eosinophils % 1.3 D Basophils % 0.7 Nucleated RBC % 1 H PT with INR INR Sodium 134 L Potassium 5.1 Chloride 103 Carbon Dioxide 18 L Anion Gap 14 BUN 75 H Creatinine 3.3 H Creat Clearance w eGFR 18.04 Random Glucose 78 Calcium 8.5 Phosphorus 5.6 H Cancelled Magnesium 2.3 Cancelled Total Bilirubin 1.0 AST 190 H ALT 168 H Alkaline Phosphatase 119 H Creatine Kinase 72 Troponin I 0.23 H B-Natriuretic Peptide Total Protein 6.1 L Albumin 3.2 L TSH 0.84 D Urine Color Urine Appearance Urine pH Ur Specific [place] Urine Protein Urine Glucose (UA) Urine Ketones Urine Blood Urine Nitrite Urine Bilirubin Urine Urobilinogen Ur Leukocyte Esterase Urine WBC (Auto) Urine RBC (Auto) Urine Mucus Urine Creatinine 09/27/18 09/27/18 09/27/18 11:30 11:30 12:29 WBC RBC Hgb Hct MCV MCH MCHC RDW Plt Count MPV Absolute Neuts (auto) Neutrophils % Lymphocytes % Monocytes % Eosinophils % Basophils % Nucleated RBC % PT with INR INR Sodium Potassium Chloride Carbon Dioxide Anion Gap BUN Creatinine Creat Clearance w eGFR Random Glucose Calcium Phosphorus Magnesium Total Bilirubin AST ALT Alkaline Phosphatase Creatine Kinase Troponin I 0.28 H B-Natriuretic Peptide Total Protein Albumin TSH Urine Color Yellow Urine Appearance Slcloudy Urine pH 5.0 Ur Specific [place] 1.013 Urine Protein 1+ H Urine Glucose (UA) Negative Urine Ketones Negative Urine Blood 1+ H Urine Nitrite Negative Urine Bilirubin Negative Urine Urobilinogen Negative Ur Leukocyte Esterase Negative Urine WBC (Auto) 2 Urine RBC (Auto) None Urine Mucus Rare Urine Creatinine 95.0 Assessment/Plan - Problems (1) Acute on chronic systolic and diastolic heart failure, NYHA class 1 Assessment/Plan: Severely reduced ef recent admission for decompensated chf now hypotensive worsening BUN/Cr probably overdiuresis and low flow acute systolic CHF will transfer to [facility] for RHC, EP bivi pacemaker adjustment and chf consult. Problematic using ACEI, ARB, or RAAS due to renal dysfunction, prior hyperkalemia. Pt has also had angioedema with ACEI. Consider starting hydralazine + nitrate when volume status is stable and if not significantly orthostatic. Code(s): I50.43 - ACUTE ON CHRONIC COMBINED SYSTOLIC AND DIASTOLIC HRT FAIL (2) Hypotension Code(s): I95.9 - HYPOTENSION, UNSPECIFIED Qualifiers: Hypotension type: other hypotension type Qualified Code(s): I95.89 - Other hypotension (3) AICD (automatic cardioverter/defibrillator) present Code(s): Z95.810 - PRESENCE OF AUTOMATIC (IMPLANTABLE) CARDIAC DEFIBRILLATOR (4) Anxiety and depression Assessment/Plan: ON SSRI. Code(s): F41.9 - ANXIETY DISORDER, UNSPECIFIED; F32.9 - MAJOR DEPRESSIVE DISORDER, SINGLE EPISODE, UNSPECIFIED (5) Acute on chronic renal failure Assessment/Plan: Doubling of creatinine since discharge from hospital last week. Pt says he has not taken furosemide or other diuretics for the past week, but has been drinking very little water or other fluids. Now being given IVF 0.5 NS 50 ml/hr IV and low dose of phenyleprine. F/u BUN/Cr, electrolytes, daily weight, Is and Os, orthostatic vital signs. Code(s): N17.9 - ACUTE KIDNEY FAILURE, UNSPECIFIED; N18.9 - CHRONIC KIDNEY DISEASE, UNSPECIFIED CC time spent 37 min
[2018-09-27] MEDS ORDERED: PT OWN MED DRAWER 7, Y5N ONE (19:08)
[2018-09-27] MEDS ORDERED: PARoxetine HCL 10 MG TABLET (FP) PO ONE (22:25)
[2018-09-27] MEDS ORDERED: MELATONIN 5 MG TABLETS PO ONE (22:39)
[2018-09-28] MEDS: PHENYLEPHRINE HCL 20,000 MCG in SODIUM CHLORIDE 248 ML IVPB SCH ×2 (03:20→22:32)
[2018-09-28 06:15] LABS: BASO % 0.4 % (0-2.0); EOS % 0.1 % (0-4.5); HEMATOCRIT 41.1 % (35.4-49); HEMOGLOBIN 13.7 GM/dL (11.7-16.9); LYMPH % 11.9 % (8-40); MCH 31.7 pg (25.7-33.7); MCHC 33.5 g/dl (32.0-35.9); MEAN CELL VOLUME 94.7 fl (80-96); MEAN PLT VOLUME 9.2 fl (7.5-11.1); MONO % 11.3 % (3.8-10.2); NEUT % 76.3 % (42.8-82.8); PLATELET COUNT 155 K/MM3 (134-434); RBC 4.34 M/mm3 (4.00-5.60); RDW 16.1 % (11.9-15.9); WHITE BLOOD COUNT 8.8 K/mm3 (4.0-10.0)
[2018-09-28] MEDS: LEVOTHYROXINE NA 50 MCG TABLET (FP) PO SCH (06:29)
[2018-09-28 07:24] LABS: ALBUMIN 3.1 g/dl (3.4-5.0); ALK PHOS 128 U/L (45-117); ANION GAP 12 MMOL/L (8-16); BILIRUBIN,TOTAL 1.3 mg/dL (0.2-1); BLOOD UREA NITROGEN 73 mg/dL (7-18); CALCIUM 8.1 mg/dL (8.5-10.1); CHLORIDE 107 mmol/L (98-107); CO2 16 mmol/L (21-32); CREATININE 3.2 mg/dL (0.55-1.3); GLUCOSE,RANDOM 77 mg/dL (74-106); MAGNESIUM 2.4 mg/dL (1.8-2.4); PHOSPHOROUS 5.3 mg/dL (2.5-4.9); POTASSIUM 5.3 mmol/L (3.5-5.1); SGOT/AST 1297 U/L (15-37); SGPT/ALT 812 U/L (13-61); SODIUM 135 mmol/L (136-145); TOT PROT 6.1 g/dl (6.4-8.2)
[2018-09-28] MEDS: CLOPIDOGREL BISULFATE 75 MG TABLET (FP) PO SCH (09:34)
[2018-09-28] MEDS: ASPIRIN COATED 81 MG TABLET.EC PO SCH (09:34)
[2018-09-28] MEDS: FAMOTIDINE 20 MG/50 ML IVPB 20 MG/50 ML MG IVPB SCH ×2 (09:34→22:26)
[2018-09-28] MEDS ORDERED: DOBUTAMINE 250 MG/D5W - 250,000 MCG/250 ML INFUS.BAG ONE (12:52)
[2018-09-28] MEDS ORDERED: HEPARIN NA (PORCINE) 5,000 UNITS/ML 1ML VIAL IVPUSH PRN ×2 (12:53)
--- NOTE | 2018-09-28 13:25 | PN ---
Teaching Attending Note Name of Resident: Cynthia Elizabeth ATTENDING PHYSICIAN STATEMENT I saw and evaluated the patient. I reviewed the resident's note and discussed the case with the resident. I agree with the resident's findings and plan as documented. SUBJECTIVE: Patient seen and examined in the ICU. Breathing feels a little better today. Improvement in nausea as well. Remains om low dose phenylephrine drip but hemodynamics are marginal. OBJECTIVE: Intake & Output 09/25/18 09/26/18 09/27/18 09/28/18 23:59 23:59 23:59 23:59 Intake Total 780 830 Output Total 150 Balance 630 830 Weight 198 lb 198 lb Last Vital Signs Temp Pulse Resp BP Pulse Ox 97.8 F 75 20 96/61 96 09/28/18 10:00 09/28/18 12:00 09/28/18 12:00 09/28/18 12:00 09/28/18 12:01 Active Medications Aspirin (Ecotrin -) 81 mg PO DAILY [facility] Last Admin: 09/28/18 09:34 Dose: 81 mg Clopidogrel Bisulfate (Plavix -) 75 mg PO DAILY [facility] Last Admin: 09/28/18 09:34 Dose: 75 mg Heparin Sodium (Porcine) (Heparin -) 1,000 unit IVPUSH PRN PRN PRN Reason: Heparin Heparin Sodium (Porcine) (Heparin -) 5,000 unit IVPUSH PRN PRN PRN Reason: Heparin Phenylephrine HCl 20,000 mcg/ (Sodium Chloride) 250 mls @ 75 mls/hr IVPB [facility]; Protocol Last Titration: 09/28/18 06:33 Dose: 60 mcg/min, 45 mls/hr Famotidine/Sodium Chloride (Pepcid 20 Mg Premixed Ivpb -) 20 mg in 50 mls @ 100 mls/hr IVPB BID [facility] Last Admin: 09/28/18 09:34 Dose: 100 mls/hr HEPARIN SOD,PORK IN 0.45% NACL (Heparin-1/2ns 25,000 Units/500) 25,000 units in 500 mls @ 20 mls/hr IVPB TITR [facility]; Protocol Dobutamine HCl 250,000 mcg/ (Sodium Chloride) 250 mls @ 26.94 mls/hr IV TITR [facility]; Protocol Levothyroxine Sodium (Synthroid -) 50 mcg PO DAILY@0700 [facility] Last Admin: 09/28/18 06:29 Dose: Not Given Gen: Awake and alert, breathing nonlabored Heart: RRR Lung: fine basilar rales Abd: soft, nontender Ext: no edema CEMENT SIDE LASTER: non-focal Laboratory Results - last 24 hr 09/27/18 09/27/18 09/27/18 11:30 12:29 18:30 WBC RBC Hgb Hct MCV MCH MCHC RDW Plt Count MPV Absolute Neuts (auto) Neutrophils % Lymphocytes % Monocytes % Eosinophils % Basophils % Nucleated RBC % Sodium Potassium Chloride Carbon Dioxide Anion Gap BUN Creatinine Creat Clearance w eGFR Random Glucose Calcium Phosphorus Magnesium Total Bilirubin AST ALT Alkaline Phosphatase Creatine Kinase Troponin I 0.28 H 0.26 H Total Protein Albumin Ur Random Sodium Ur Random Potassium Ur Random Chloride Urine Creatinine 95.0 09/27/18 09/28/18 09/28/18 23:30 05:30 05:30 WBC 8.8 RBC 4.34 Hgb 13.7 Hct 41.1 MCV 94.7 MCH 31.7 MCHC 33.5 RDW 16.1 H Plt Count 155 MPV 9.2 Absolute Neuts (auto) 6.7 Neutrophils % 76.3 Lymphocytes % 11.9 D Monocytes % 11.3 H Eosinophils % 0.1 D Basophils % 0.4 Nucleated RBC % 1 H Sodium 135 L Potassium 5.3 H Chloride 107 Carbon Dioxide 16 L Anion Gap 12 BUN 73 H Creatinine 3.2 H Creat Clearance w eGFR 18.69 Random Glucose 77 Calcium 8.1 L Phosphorus 5.3 H Magnesium 2.4 Total Bilirubin 1.3 H AST 1297 H ALT 812 H Alkaline Phosphatase 128 H Creatine Kinase 121 Troponin I 0.70 H* 1.24 H* Total Protein 6.1 L Albumin 3.1 L Ur Random Sodium Ur Random Potassium Ur Random Chloride Urine Creatinine 09/28/18 09:20 WBC RBC Hgb Hct MCV MCH MCHC RDW Plt Count MPV Absolute Neuts (auto) Neutrophils % Lymphocytes % Monocytes % Eosinophils % Basophils % Nucleated RBC % Sodium Potassium Chloride Carbon Dioxide Anion Gap BUN Creatinine Creat Clearance w eGFR Random Glucose Calcium Phosphorus Magnesium Total Bilirubin AST ALT Alkaline Phosphatase Creatine Kinase Troponin I Total Protein Albumin Ur Random Sodium < 18 L Ur Random Potassium 39.7 Ur Random Chloride < 11 L Urine Creatinine ASSESSMENT AND PLAN: Acute on Chronic Renal Failure Severe LV Systolic Dysfunction s/p PPM Shock - ?Hypovolemic +Troponins likely Demand Ischemia CAD Elevated LFTs HTN Hypothyroidism Anxiety Wean Phenylephrine drip to off, if pressors are required should have central access with NE (apparently patient refused earlier) Start Dobutamine O2 as needed Strict I & O ASA Plavix Cardiology follow up For transfer to [facility] Critical care time spent in reviewing chart, evaluating patient and formulating plan - 36 minutes.
[2018-09-28] MEDS ORDERED: DOBUTAMINE HCL IV SCH (13:30)
[2018-09-28] MEDS ORDERED: SODIUM CHLORIDE 0.45% IV SCH (13:30)
[2018-09-28] MEDS ORDERED: HEPARIN SOD,PORK IN 0.45% NACL 25,000 UNITS/500 ML INFUS.BAG IVPB SCH (13:30)
--- NOTE | 2018-09-28 13:45 | PN ---
Progress Note (short form) - Note Progress Note: Current Medications Aspirin (Ecotrin -) 81 mg PO DAILY [facility] Last Admin: 09/28/18 09:34 Dose: 81 mg Clopidogrel Bisulfate (Plavix -) 75 mg PO DAILY [facility] Last Admin: 09/28/18 09:34 Dose: 75 mg Heparin Sodium (Porcine) (Heparin -) 1,000 unit IVPUSH PRN PRN PRN Reason: Heparin Heparin Sodium (Porcine) (Heparin -) 5,000 unit IVPUSH PRN PRN PRN Reason: Heparin Phenylephrine HCl 20,000 mcg/ (Sodium Chloride) 250 mls @ 75 mls/hr IVPB ASD[facility]; Protocol Last Titration: 09/28/18 06:33 Dose: 60 mcg/min, 45 mls/hr Famotidine/Sodium Chloride (Pepcid 20 Mg Premixed Ivpb -) 20 mg in 50 mls @ 100 mls/hr IVPB BID [facility] Last Admin: 09/28/18 09:34 Dose: 100 mls/hr HEPARIN SOD,PORK IN 0.45% NACL (Heparin-1/2ns 25,000 Units/500) 25,000 units in 500 mls @ 20 mls/hr IVPB TITR [facility]; Protocol Dobutamine HCl 250,000 mcg/ (Sodium Chloride) 250 mls @ 26.94 mls/hr IV TITR [facility]; Protocol Levothyroxine Sodium (Synthroid -) 50 mcg PO DAILY@0700 [facility] Last Admin: 09/28/18 06:29 Dose: Not Given Laboratory Results - last 24 hr 09/27/18 09/27/18 09/27/18 11:30 18:30 23:30 WBC RBC Hgb Hct MCV MCH MCHC RDW Plt Count MPV Absolute Neuts (auto) Neutrophils % Lymphocytes % Monocytes % Eosinophils % Basophils % Nucleated RBC % Sodium Potassium Chloride Carbon Dioxide Anion Gap BUN Creatinine Creat Clearance w eGFR Random Glucose Calcium Phosphorus Magnesium Total Bilirubin AST ALT Alkaline Phosphatase Creatine Kinase Troponin I 0.26 H 0.70 H* Total Protein Albumin Ur Random Sodium Ur Random Potassium Ur Random Chloride Urine Creatinine 95.0 09/28/18 09/28/18 09/28/18 05:30 05:30 09:20 WBC 8.8 RBC 4.34 Hgb 13.7 Hct 41.1 MCV 94.7 MCH 31.7 MCHC 33.5 RDW 16.1 H Plt Count 155 MPV 9.2 Absolute Neuts (auto) 6.7 Neutrophils % 76.3 Lymphocytes % 11.9 D Monocytes % 11.3 H Eosinophils % 0.1 D Basophils % 0.4 Nucleated RBC % 1 H Sodium 135 L Potassium 5.3 H Chloride 107 Carbon Dioxide 16 L Anion Gap 12 BUN 73 H Creatinine 3.2 H Creat Clearance w eGFR 18.69 Random Glucose 77 Calcium 8.1 L Phosphorus 5.3 H Magnesium 2.4 Total Bilirubin 1.3 H AST 1297 H ALT 812 H Alkaline Phosphatase 128 H Creatine Kinase 121 Troponin I 1.24 H* Total Protein 6.1 L Albumin 3.1 L Ur Random Sodium < 18 L Ur Random Potassium 39.7 Ur Random Chloride < 11 L Urine Creatinine Vital Signs Temperature 97.8 F 09/28/18 10:00 Pulse Rate 75 09/28/18 12:00 Respiratory Rate 20 09/28/18 12:00 Blood Pressure 96/61 09/28/18 12:00 O2 Sat by Pulse Oximetry (%) 96 09/28/18 12:01 CC: unsettled; did not sleep well ````````````````````````````` skin--anicteric eyes--eomi lungs--grossly clear heart--RR abd--soft, BS+ neuro--awake; verbal coherent; moves all extremeties ```````````````````````````````````````````````````` Summ > High LFts--acutely high as compared to yesterday's readings; US showed no detectable flow through the portal vein; Contrast study precluded by significantly elevated Bun/cr; (well above his baseline of 40/2.0) PLAN: discussed with GI; ? attempt to do a doppler study; IV heparin > hypotension--has been on low rate IVF and phenylephrine; BP near baseline > Hypertensive heart and renal dz--notable bivent dysf (not new);Bun/Cr high above baseline; has elevated Trop levels which aren't new; cont dual antiPLt drugs; will now be place on IV heparin > pacer/defib status--as a result; not a candidate for MRI/MRA ~~~~~~~~~~~~~~~~~~~~~~ Dr Desai Problem List - Problems (1) Hypotension Code(s): I95.9 - HYPOTENSION, UNSPECIFIED Qualifiers: Qualified Code(s): I95.89 - Other hypotension (2) Chronic diastolic CHF (congestive heart failure), NYHA class 3 Code(s): I50.32 - CHRONIC DIASTOLIC (CONGESTIVE) HEART FAILURE (3) Chronic renal insufficiency Code(s): N18.9 - CHRONIC KIDNEY DISEASE, UNSPECIFIED Qualifiers: Qualified Code(s): N18.3 - Chronic kidney disease, stage 3 (moderate) (4) Elevated troponin Code(s): R74.8 - ABNORMAL LEVELS OF OTHER SERUM ENZYMES (5) Transaminasemia Code(s): R74.0 - NONSPEC ELEV OF LEVELS OF TRANSAMNS & LACTIC ACID DEHYDRGNSE (6) Encounter for long-term use of antiplatelets/antithrombotics Code(s): Z79.02 - SKILLED NURSING (CURRENT) USE OF ANTITHROMBOTICS/ANTIPLATELETS (7) AICD (automatic cardioverter/defibrillator) present Code(s): Z95.810 - PRESENCE OF AUTOMATIC (IMPLANTABLE) CARDIAC DEFIBRILLATOR (8) Carotid occlusion, left Code(s): I65.22 - OCCLUSION AND STENOSIS OF LEFT CAROTID ARTERY (9) PAD (peripheral artery disease) Code(s): I73.9 - PERIPHERAL VASCULAR DISEASE, UNSPECIFIED (10) Gout Code(s): M10.9 - GOUT, UNSPECIFIED (11) Hypothyroid Code(s): E03.9 - HYPOTHYROIDISM, UNSPECIFIED Qualifiers: Qualified Code(s): E03.9 - Hypothyroidism, unspecified (12) Dysthymia (or depressive neurosis) Code(s): F34.1 - DYSTHYMIC DISORDER (13) MGUS (monoclonal gammopathy of unknown significance) Code(s): D47.2 - MONOCLONAL GAMMOPATHY
[2018-09-28] MEDS ORDERED: LORazepam 0.5 MG TABLET PO PRN (13:55)
--- NOTE | 2018-09-28 14:14 | EKG ---
Test Reason : Blood Pressure : / mmHG Vent. Rate : 117 BPM Atrial Rate : 117 BPM P-R Int : 000 ms QRS Dur : 184 ms QT Int : 372 ms P-R-T Axes : 106 106 -61 degrees QTc Int : 518 ms Atrial-sensed ventricular-paced rhythm Biventricular pacemaker detected ABNORMAL ECG WHEN COMPARED WITH ECG OF 26-SEP-2018 13:23, VENT. RATE HAS INCREASED BY 42 BPM Confirmed by PARDEEP LIRA MD ([id number]) on 09/28/2018 2:14:16 PM Referred By: Confirmed By:PARDEEP LIRA MD
--- NOTE | 2018-09-28 14:16 | EKG ---
Test Reason : Blood Pressure : / mmHG Vent. Rate : 075 BPM Atrial Rate : 075 BPM P-R Int : 252 ms QRS Dur : 190 ms QT Int : 504 ms P-R-T Axes : 060 111 -62 degrees QTc Int : 562 ms AV dual-paced rhythm with prolonged AV conduction Biventricular pacemaker detected ABNORMAL ECG WHEN COMPARED WITH ECG OF 27-SEP-2018 17:49, VENT. RATE HAS DECREASED BY 42 BPM Confirmed by PANKAJ OLVERA, PARDEEP ([id number]) on 09/28/2018 2:16:51 PM Referred By: Confirmed By:PARDEEP LIRA MD
--- NOTE | 2018-09-28 14:40 | CON.GI ---
Consult Consult Specialty:: GI Referred by:: Dr. Hector Desai Reason for Consultation:: Abnormal LFTs - History of Present Illness Chief Complaint: "I was weak and couldn't breathe" History of Present Illness: 83M admitted for evaluation of progressive weakness and SOB. Started on pressors due to hypotension. Asked to evaluate for rising liver chemistries. Transaminases and ALP elevated on admission. Transaminsases have fluctuated in the past in review of meditech. He denies abdominal pain or prexisting liver disease. Abdominal US revealed gallstones and thickened GB wall and no flow could be visualized in portal vein. There was no ductal dilatation. He denies alcohol use, known history of liver disease. He states having had a colonoscopy some years ago that was OK. He denies recent change in home medications. He denies significant tylenol use. - History Source History Provided By: Patient - Past Medical History MEDICAL PHYSICIST: Yes: TIA Cardio/Vascular: Yes: CHF, HTN, Hyperlipdemia, Murmur. No: Aneurysm, Aortic Insufficiency, Aortic Stenosis, CAD, Deep Vein Thrombosis, [place], Mitral Insufficiency, Mitral Stenosis, Pulmonary Hypertension, Other Renal/: Yes: Renal Inusuff (CKD (stage 1)). No: Renal Failure, BPH, Cancer, Hematuria, Hemodialysis, Neurogenic Bladder, Renal Calculi, UTI, Other Psych: Yes: Anxiety, Other (affective dz) Musculoskeletal: Yes: Osteoarthritis Rheumatology: Yes: Gout. 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 Place of : [facility] History of Recent Travel: Yes (went to [place] 1 week ago) Home Medications - Allergies Allergies/Adverse Reactions: Allergies Allergy/AdvReac Type Severity Reaction Status Date / Time lisinopril Allergy Intermediate Cough Verified 09/26/18 13:10 Penicillins Allergy Intermediate Rash Verified 09/26/18 13:10 pravastatin sodium Allergy Intermediate MUSCLE PAIN Verified 09/26/18 13:10 [From Pravachol] simvastatin [From Zocor] Allergy Intermediate MUSCLE PAIN Verified 09/26/18 13: 10 sertraline Allergy Unknown Verified 09/26/18 13:10 - Home Medications Home Medications: Ambulatory Orders Allopurinol [Zyloprim -] 300 mg PO DAILY 12/19/15 Aspirin [ASA -] 81 mg PO DAILY 12/19/15 Clopidogrel Bisulfate [Plavix -] 75 mg PO DAILY 12/19/15 Levothyroxine [Synthroid -] 25 mcg PO DAILY 12/19/15 Paroxetine HCl [Paxil -] 10 mg PO DAILY 12/19/15 Rosuvastatin [Crestor -] 20 mg PO HS 12/19/15 Furosemide [Lasix -] 40 mg PO DAILY 06/30/16 Colesevelam HCl [Welchol (Nf)] 625 mg PO DAILY 06/13/17 Family Disease History - Family Disease History Family Disease History: Diabetes: Mother, Heart Disease: Mother Other Family History: No family history of liver disease, colorectal cancer Review of Systems - Review of Systems Constitutional: reports: Weakness. denies: Fever Cardiovascular: reports: Shortness of Breath. denies: Chest Pain Respiratory: reports: SOB on Exertion Gastrointestinal: reports: Abdominal Pain Physical Exam-GI Vital Signs: Vital Signs Temperature 97.8 F 09/28/18 10:00 Pulse Rate 75 09/28/18 12:00 Respiratory Rate 20 09/28/18 12:00 Blood Pressure 96/61 09/28/18 12:00 O2 Sat by Pulse Oximetry (%) 96 09/28/18 12:01 Constitutional: Yes: Calm Eyes: No: Sclera Icterus Cardiovascular: Yes: Tachycardia (Pulse regular), Murmur Respiratory: Yes: Diminished (at bases bilaterally) Gastrointestinal Inspection: No: Distention ...Auscultate: Yes: Normoactive Bowel Sounds ...Palpate: Yes: Soft. No: Hepatomegaly, Splenomegaly, Tenderness ...Percussion: No: Tympanitic Edema: No (No LE edema) Neurological: Yes: Alert Labs: CBC, BMP 09/28/18 05:30 09/28/18 05:30 INR, PTT INR 1.38 (0.83-1.09) H 09/26/18 13:47 Hepatic Panel Total Bilirubin 1.3 mg/dL (0.2-1) H 09/28/18 05:30 AST 1297 U/L (15-37) H 09/28/18 05:30 ALT 812 U/L (13-61) H 09/28/18 05:30 Alkaline Phosphatase 128 U/L (45-117) H 09/28/18 05:30 Albumin 3.1 g/dl (3.4-5.0) L 09/28/18 05:30 Imaging - Results Ultrasound: Report Reviewed Problem List - Problems (1) Abnormal liver function tests Assessment/Plan: Asymptomatic elevation of ALP/Transasminases in the setting of CHF/Hypotension / cardiogenic shock Ischemic hepatopathy would need to be considered higher in the differential There was concern that flow was not visualized in the portal vein on US study. IV contrast studies cannot be used secondary to renal insifficiency. A PVT with total occlusion of the portal vein without pain would be an atypical presentation of acute PVT. Doppler has been ordered and patient was placed on heparin in the interim Minimize hepatotoxic agents: Statin therapy has been discontinued Monitor coags / LFTs Await doppler study There was plan for transfer for possible right heart cath. Agree with transfer. If portal vein thrombus is noted on doppler study, this obviously complicates treatment options further. If this is a chronic PVT as opposed to acute, there should at least be collateral flow demonstrable by doppler. Code(s): R94.5 - ABNORMAL RESULTS OF LIVER FUNCTION STUDIES
--- NOTE | 2018-09-28 15:24 | PN ---
Physical Exam: SUBJECTIVE: Patient seen and examined this morning in ICU. Overnight experienced some tachypnea and chest pain; was restarted on phenylephrine. Currently denies any Chest pressure, SOB, nausea, vomiting, palpitations. OBJECTIVE: Vital Signs Period Temp Pulse Resp BP Sys/Ramirez Pulse Ox Last 24 Hr 97.3 F-98.2 F 74-96 15-30 73-119/45-72 96-96 GENERAL: A&Ox3, NAD HEAD: NCAT EYES: PERRL, EOMI ENT: Moist mucous membranes NECK: Supple, No JVD LUNGS: CTA b/l, no wheezes, no crackles HEART: Regular rate and rhythm, S1, S2 ABDOMEN: Soft, nontender, nondistended, + bowel sounds, no guarding EXTREMITIES: No edema. NEUROLOGICAL: Cranial nerves II through XII grossly intact. Normal speech SKIN: Warm, dry Laboratory Results - last 24 hr 09/28/18 09/28/18 09/28/18 05:30 05:30 09:20 WBC 8.8 RBC 4.34 Hgb 13.7 Hct 41.1 MCV 94.7 MCH 31.7 MCHC 33.5 RDW 16.1 H Plt Count 155 MPV 9.2 Absolute Neuts (auto) 6.7 Neutrophils % 76.3 Lymphocytes % 11.9 D Monocytes % 11.3 H Eosinophils % 0.1 D Basophils % 0.4 Nucleated RBC % 1 H Sodium 135 L Potassium 5.3 H Chloride 107 Carbon Dioxide 16 L Anion Gap 12 BUN 73 H Creatinine 3.2 H Creat Clearance w eGFR 18.69 Random Glucose 77 Calcium 8.1 L Phosphorus 5.3 H Magnesium 2.4 Total Bilirubin 1.3 H AST 1297 H ALT 812 H Alkaline Phosphatase 128 H Creatine Kinase 121 Troponin I 1.24 H* Total Protein 6.1 L Albumin 3.1 L Ur Random Sodium < 18 L Ur Random Potassium 39.7 Ur Random Chloride < 11 L Urine Creatinine Active Medications Aspirin (Ecotrin -) 81 mg PO DAILY [facility] Last Admin: 09/28/18 09:34 Dose: 81 mg Clopidogrel Bisulfate (Plavix -) 75 mg PO DAILY [facility] Last Admin: 09/28/18 09:34 Dose: 75 mg Heparin Sodium (Porcine) (Heparin -) 1,000 unit IVPUSH PRN PRN PRN Reason: Heparin Heparin Sodium (Porcine) (Heparin -) 5,000 unit IVPUSH PRN PRN PRN Reason: Heparin Phenylephrine HCl 20,000 mcg/ (Sodium Chloride) 250 mls @ 75 mls/hr IVPB ASDIR [facility]; Protocol Last Titration: 09/28/18 06:33 Dose: 60 mcg/min, 45 mls/hr Famotidine/Sodium Chloride (Pepcid 20 Mg Premixed Ivpb -) 20 mg in 50 mls @ 100 mls/hr IVPB BID [facility] Last Admin: 09/28/18 09:34 Dose: 100 mls/hr HEPARIN SOD,PORK IN 0.45% NACL (Heparin-1/2ns 25,000 Units/500) 25,000 units in 500 mls @ 20 mls/hr IVPB TITR [facility]; Protocol Dobutamine HCl 250,000 mcg/ (Sodium Chloride) 250 mls @ 26.94 mls/hr IV TITR [facility]; Protocol Levothyroxine Sodium (Synthroid -) 50 mcg PO DAILY@0700 [facility] Last Admin: 09/28/18 06:29 Dose: Not Given Lorazepam (Ativan -) 0.5 mg PO DAILY PRN PRN Reason: ANXIETY ASSESSMENT/PLAN: 83 y/o M with PMHx of HFrEF s/p AICD, HTN, HLD, PAD, Prior TIA, CKD (stage 1), MGUS, ANxiety, OA, Gout, Hypothyroidism presents with worsening dyspnea, found to be hypotensive and will be monitorred in ICU. #Neuro Hx of Prior TIA, Anxiety -No Active Issues, Continue to monitor -Continue Paroxetine 5mg PO HS #Cardio Hx of HFrEF s/p AICD, HTN, HLD, PAD Elevated Troponin, BNP -Hypotensive on Admission likely due to dehydration vs Low EF -S/P 250 mls Bolus -Phenylephrine D/C'ed -Start Dobutamine; Taper to maintain MAP > 65 -Trops rising, most recently 1.24 -Start Heparin Drip -ECHO (09/13): LV Systolic function severely reduced, LV Severe global hypokinesis, LA and RA Severly dilated, Mod to Severe TR, RV systolic pressure elevated, prosthetic Aortic valve, Mild AR, moderate MR -EKG: AV dual-paced rhythm with prolonged AV conduction, Biventricular pacemaker detected, VR 75, QTc 567 -Continue ASA, Plavix -Hold home dose Carvedilol, Furosemide, Statin -Cardiology (Dr. Landon) Consulted, Appreciate Rec's -Will transfer to [facility] as per cardiology #Pulm -CXR: No acute chest pathology. Large heart -Maintaining Airway, No Active Issues, Continue to monitor -Supplemental O2 to maintian Sat > 90% #GI Transaminitis, Continue to rise Elevated INR Nausea, Unclear Etiology -WNL on prior visit; Likely due to congestion -Abdomen/Liver US: Mild hepatomegaly with fatty infiltration versus hepatocellular disease. Normal size spleen. Right pleural effusion. Gallstones with a sludge and thickening of its wall. No pericholecystic free fluid is present. Needle Molder reported negative Pyle's sign. No gross flow could be demonstrated in the main portal vein. -Portal vein doppler pending -Hold home dose statin -Continue to monitor #Renal ESTELLA, Improving CKD (stage 1) -UA 1+ Protein -BUN 46 and Cr 1.8 on prior visit; Baseline ~40/2.5 -Likely due to Hypoperfusion -Hold home dose Lasix -Kidney/Renal US: Bilateral renal simple cysts -Urine Studies Noted -Trend BUN, Cr, lytes -Monitor daily weight, I&Os #Heme MGUS -Stable with No Active Issues, Continue to monitor #Endocrine Hypothyroidism -TSH 0.84 -Continue Levothyroxine 50mcg PO DAILY #ID -Afebrile without elevated WBC Count -No Active Issues, Continue to monitor #MSK Hx of OA, Gout -Stable with No Active Issues, Continue to monitor -Continue home dose Allopurinol #FEN -PO Fluids -Replete Lytes PRN -NPO for possible Cardiac procedure #PPx -DVT: SCDs; Heparin Drip -GI: Famotidine Code status: Full Code Dispo: For transfer to [facility] Visit type - Emergency Visit Emergency Visit: Yes ED Registration Date: 09/26/18 Care time: The patient presented to the Emergency Department on the above date and was hospitalized for further evaluation of their emergent condition. - New Patient This patient is new to me today: No - Critical Care Critical Care patient: Yes Total Critical Care Time (in minutes): 40 Critical Care Statement: The care of this patient involved high complexity decision making to prevent further life threatening deterioration of the patient 's condition and/or to evaluate & treat vital organ system(s) failure or risk of failure.
[2018-09-28 15:31] LABS: INR 1.68 (0.83-1.09); PROTHROMBIN TIME (PATIENT) 19.9 SEC (9.7-13.0)
[2018-09-28 15:33] LABS: ACTIVATED PTT 35.3 SECONDS (25.2-36.5)
--- NOTE | 2018-09-28 15:44 | PN ---
Progress Note, Physician Chief Complaint: Pt alert; lying in bed; feels weak. No chest pain; dyspneic on mild exertion. History of Present Illness: The patient is an 83 white man with a PMH of HTN, severe systolic CHF-->ICD, HTN, CAD, Gout, OA, Hypothyroidism, and anxiety, who presents to the ER with complaints of worsening SOB. The patient states that for the past 5 days (since he was discharged from our facility), he's had worsening SOB with exertion. He states that today, he was supposed to follow up with his PCP but became so "winded" going up the stairs that he called EMS and presented to the ER. He admits to SMITH and no orthopnea, resting SOB, CP, fever, chills, vomiting. He also admits to nausea. He denies any other acute complaints. - Current Medication List Current Medications: Active Medications Aspirin (Ecotrin -) 81 mg PO DAILY [facility] Last Admin: 09/28/18 09:34 Dose: 81 mg Clopidogrel Bisulfate (Plavix -) 75 mg PO DAILY [facility] Last Admin: 09/28/18 09:34 Dose: 75 mg Heparin Sodium (Porcine) (Heparin -) 1,000 unit IVPUSH PRN PRN PRN Reason: Heparin Heparin Sodium (Porcine) (Heparin -) 5,000 unit IVPUSH PRN PRN PRN Reason: Heparin Last Admin: 09/28/18 15:29 Dose: 5,000 unit Phenylephrine HCl 20,000 mcg/ (Sodium Chloride) 250 mls @ 75 mls/hr IVPB ASDIR [facility]; Protocol Last Titration: 09/28/18 14:00 Dose: 0 mcg/min, 0 mls/hr Famotidine/Sodium Chloride (Pepcid 20 Mg Premixed Ivpb -) 20 mg in 50 mls @ 100 mls/hr IVPB BID [facility] Last Admin: 09/28/18 09:34 Dose: 100 mls/hr HEPARIN SOD,PORK IN 0.45% NACL (Heparin-1/2ns 25,000 Units/500) 25,000 units in 500 mls @ 20 mls/hr IVPB TITR [facility]; Protocol Last Admin: 09/28/18 15:11 Dose: 1,000 units/hr, 20 mls/hr Dobutamine HCl 250,000 mcg/ (Sodium Chloride) 250 mls @ 26.94 mls/hr IV TITR [facility]; Protocol Last Admin: 09/28/18 14:00 Dose: 5 mcg/kg/min, 26.94 mls/hr Levothyroxine Sodium (Synthroid -) 50 mcg PO DAILY@0700 [facility] Last Admin: 09/28/18 06:29 Dose: Not Given Lorazepam (Ativan -) 0.5 mg PO DAILY PRN PRN Reason: ANXIETY - Objective Vital Signs: Vital Signs Temperature 97.8 F 09/28/18 10:00 Pulse Rate 75 09/28/18 14:00 Respiratory Rate 20 09/28/18 12:00 Blood Pressure 96/62 09/28/18 14:00 O2 Sat by Pulse Oximetry (%) 96 09/28/18 12:01 Constitutional: Yes: Anxious, Mild Distress Eyes: Yes: WNL HENT: Yes: WNL Neck: Yes: WNL Cardiovascular: Yes: Murmur, S1, S2 (split) Respiratory: Yes: Diminished, Rales, SOB Gastrointestinal: Yes: Soft ...Rectal Exam: Yes: Deferred Genitourinary: No: Anuria Breast(s): Yes: WNL Musculoskeletal: Yes: Muscle Weakness Extremities: Yes: Cool Edema: No Peripheral Pulses WNL: No Peripheral Pulses: Left Doralis Pedis: 1+, Right Dorsalis Pedis: 1+ Integumentary: Yes: WNL Neurological: Yes: Alert, Oriented, Weakness Psychiatric: Yes: Alert, Oriented, Other (anxiety/depression) Labs: CBC, BMP 09/28/18 05:30 09/28/18 05:30 INR, PTT INR 1.68 (0.83-1.09) H 09/28/18 14:20 Abnormal Lab Results 09/27/18 09/27/18 09/28/18 18:30 23:30 05:30 RDW Monocytes % Nucleated RBC % PT with INR INR Sodium 135 L Potassium 5.3 H Carbon Dioxide 16 L BUN 73 H Creatinine 3.2 H Calcium 8.1 L Phosphorus 5.3 H Total Bilirubin 1.3 H AST 1297 H ALT 812 H Alkaline Phosphatase 128 H Troponin I 0.26 H 0.70 H* 1.24 H* Total Protein 6.1 L Albumin 3.1 L Ur Random Sodium Ur Random Chloride 09/28/18 09/28/18 09/28/18 05:30 09:20 14:20 RDW 16.1 H Monocytes % 11.3 H Nucleated RBC % 1 H PT with INR 19.90 H INR 1.68 H Sodium Potassium Carbon Dioxide BUN Creatinine Calcium Phosphorus Total Bilirubin AST ALT Alkaline Phosphatase Troponin I Total Protein Albumin Ur Random Sodium < 18 L Ur Random Chloride < 11 L Problem List - Problems (1) Acute on chronic systolic and diastolic heart failure, NYHA class 1 Assessment/Plan: On carvedilol. Pt has had angioedema with ACEI; this would also preclude use of ARB. Problematic using RAAS as well. Has been on phelyephrine for hypotension, but may need to change to another agent due to severely reduced LVEF, e.g. dobutamine. F/u BUN/Cr, electrolytes, Is and Os, daily weight.. Now with significant increase in LFTs; ?portal vein thrombosis. For IV heparin. F/u with GI. Code(s): I50.43 - ACUTE ON CHRONIC COMBINED SYSTOLIC AND DIASTOLIC HRT FAIL (2) Hypotension Code(s): I95.9 - HYPOTENSION, UNSPECIFIED Qualifiers: Hypotension type: other hypotension type Qualified Code(s): I95.89 - Other hypotension (3) AICD (automatic cardioverter/defibrillator) present Code(s): Z95.810 - PRESENCE OF AUTOMATIC (IMPLANTABLE) CARDIAC DEFIBRILLATOR (4) Anxiety and depression Assessment/Plan: ON SSRI. Code(s): F41.9 - ANXIETY DISORDER, UNSPECIFIED; F32.9 - MAJOR DEPRESSIVE DISORDER, SINGLE EPISODE, UNSPECIFIED (5) Acute on chronic renal failure Code(s): N17.9 - ACUTE KIDNEY FAILURE, UNSPECIFIED; N18.9 - CHRONIC KIDNEY DISEASE, UNSPECIFIED
[2018-09-28] MEDS ORDERED: SODIUM CHLORIDE 250 ML IV STA (18:58)
--- NOTE | 2018-09-28 19:09 | PN ---
Progress Note (short form) - Note Progress Note: ................addendum (medical) 1. Portal vein doppler negative as per report: PLAN: stop IV herapin (discussed with DR Lacy) 2. Hypotension: persistent 2nd biventricular dysf, which may be producing reactive tachycardia PLAN: fluid challenge, (may Rx BB depending on his VS) Problem List - Problems (1) Hypotension Code(s): I95.9 - HYPOTENSION, UNSPECIFIED Qualifiers: Hypotension type: other hypotension type Qualified Code(s): I95.89 - Other hypotension (2) Chronic diastolic CHF (congestive heart failure), NYHA class 3 Code(s): I50.32 - CHRONIC DIASTOLIC (CONGESTIVE) HEART FAILURE (3) Chronic renal insufficiency Code(s): N18.9 - CHRONIC KIDNEY DISEASE, UNSPECIFIED Qualifiers: Chronic kidney disease stage: stage 3 (moderate) Qualified Code(s): N18.3 - Chronic kidney disease, stage 3 (moderate) (4) Elevated troponin Code(s): R74.8 - ABNORMAL LEVELS OF OTHER SERUM ENZYMES (5) Transaminasemia Code(s): R74.0 - NONSPEC ELEV OF LEVELS OF TRANSAMNS & LACTIC ACID DEHYDRGNSE (6) Encounter for long-term use of antiplatelets/antithrombotics Code(s): Z79.02 - HEALTH INSURANCE AGENT (CURRENT) USE OF ANTITHROMBOTICS/ANTIPLATELETS (7) AICD (automatic cardioverter/defibrillator) present Code(s): Z95.810 - PRESENCE OF AUTOMATIC (IMPLANTABLE) CARDIAC DEFIBRILLATOR (8) Carotid occlusion, left Code(s): I65.22 - OCCLUSION AND STENOSIS OF LEFT CAROTID ARTERY (9) PAD (peripheral artery disease) Code(s): I73.9 - PERIPHERAL VASCULAR DISEASE, UNSPECIFIED (10) Gout Code(s): M10.9 - GOUT, UNSPECIFIED Qualifiers: Gout etiology: unspecified cause Presence of tophus: without tophus (11) Hypothyroid Code(s): E03.9 - HYPOTHYROIDISM, UNSPECIFIED Qualifiers: Hypothyroidism type: acquired Qualified Code(s): E03.9 - Hypothyroidism, unspecified (12) Dysthymia (or depressive neurosis) Code(s): F34.1 - DYSTHYMIC DISORDER (13) MGUS (monoclonal gammopathy of unknown significance) Code(s): D47.2 - MONOCLONAL GAMMOPATHY
[2018-09-28] MEDS ORDERED: PARoxetine HCL 10 MG TABLET (FP) PO SCH (22:00)
[2018-09-28] MEDS ORDERED: PT OWN MED DRAWER 7, Y5N ONE (22:20)
[2018-09-28] MEDS: DEXTROSE 5%-NORMAL SALINE 1,000 ML IV SCH (22:25)
[2018-09-28] MEDS ORDERED: MAG HYDROX/AL HYDROX/SIMETH 30 ML UNIT-DOSE CUP PO ONE (23:29)
[2018-09-29] MEDS: DOBUTAMINE 250 MG/D5W - 250,000 MCG/250 ML INFUS.BAG IV SCH ×2 (00:38→06:49)
[2018-09-29] MEDS ORDERED: PT OWN MED DRAWER 7, Y5N ONE ×2 (00:43→13:42)
[2018-09-29] MEDS ORDERED: ALBUTEROL SO4 0.083% IH SOL 2.5 MG/3 ML VIAL.NEB. NEB ONE (05:29)
[2018-09-29 06:05] LABS: HEMATOCRIT 38.3 % (35.4-49); HEMOGLOBIN 12.6 GM/dL (11.7-16.9); MCH 31.5 pg (25.7-33.7); MEAN CELL VOLUME 95.3 fl (80-96); PLATELET COUNT 115 K/MM3 (134-434); RBC 4.02 M/mm3 (4.00-5.60); RDW 16.8 % (11.9-15.9); WHITE BLOOD COUNT 7.8 K/mm3 (4.0-10.0)
[2018-09-29 06:33] LABS: ALBUMIN 2.6 g/dl (3.4-5.0); ALK PHOS 117 U/L (45-117); ANION GAP 12 MMOL/L (8-16); BILIRUBIN,TOTAL 1.4 mg/dL (0.2-1); BLOOD UREA NITROGEN 76 mg/dL (7-18); CALCIUM 7.8 mg/dL (8.5-10.1); CHLORIDE 107 mmol/L (98-107); CO2 18 mmol/L (21-32); CREATININE 3.3 mg/dL (0.55-1.3); GLUCOSE,RANDOM 98 mg/dL (74-106); MAGNESIUM 2.4 mg/dL (1.8-2.4); PHOSPHOROUS 4.4 mg/dL (2.5-4.9); POTASSIUM 4.5 mmol/L (3.5-5.1); SGOT/AST 834 U/L (15-37); SGPT/ALT 717 U/L (13-61); SODIUM 137 mmol/L (136-145); TOT PROT 5.2 g/dl (6.4-8.2)
[2018-09-29] MEDS: LEVOTHYROXINE NA 50 MCG TABLET (FP) PO SCH (06:36)
[2018-09-29] MEDS ORDERED: DOBUTAMINE 250 MG/D5W - 250,000 MCG/250 ML INFUS.BAG IV SCH (07:48)
[2018-09-29] MEDS ORDERED: METOPROLOL TARTRATE 5 MG/5 ML VIAL IVPB ONE (09:43)
--- NOTE | 2018-09-29 09:51 | PN ---
Progress Note (short form) - Note Progress Note: Current Medications Aspirin (Ecotrin -) 81 mg PO DAILY [facility] Last Admin: 09/28/18 09:34 Dose: 81 mg Clopidogrel Bisulfate (Plavix -) 75 mg PO DAILY [facility] Last Admin: 09/28/18 09:34 Dose: 75 mg Famotidine/Sodium Chloride (Pepcid 20 Mg Premixed Ivpb -) 20 mg in 50 mls @ 100 mls/hr IVPB BID [facility] Last Admin: 09/28/18 22:26 Dose: 100 mls/hr Dextrose/Sodium Chloride (D5-Ns -) 1,000 mls @ 42 mls/hr IV ASDIR [facility] Last Admin: 09/28/18 22:25 Dose: Not Given Dobutamine HCl/Dextrose (Dobutamine 250 Mg/D5w -) 250,000 mcg in 250 mls @ 26.943 mls/hr IV TITR [facility]; Protocol Last Titration: 09/29/18 08:00 Dose: 12 mcg/kg/min, 64.664 mls/hr Levothyroxine Sodium (Synthroid -) 50 mcg PO DAILY@0700 [facility] Last Admin: 09/29/18 06:36 Dose: 50 mcg Lorazepam (Ativan -) 0.5 mg PO DAILY PRN PRN Reason: ANXIETY Metoprolol Tartrate (Lopressor Injection -) 2.5 mg IVPB ONCE ONE Stop: 09/29/18 09:44 Paroxetine HCl (Paxil -) 5 mg PO HS [facility] Last Admin: 09/28/18 22:27 Dose: 5 mg Laboratory Results - last 24 hr 09/28/18 09/28/18 09/28/18 09:20 14:20 17:30 WBC RBC Hgb Hct MCV MCH MCHC RDW Plt Count MPV PT with INR 19.90 H INR 1.68 H PTT (Actin FS) 35.3 Sodium Potassium Chloride Carbon Dioxide Anion Gap BUN Creatinine Creat Clearance w eGFR Random Glucose Calcium Phosphorus Magnesium Total Bilirubin AST ALT Alkaline Phosphatase Creatine Kinase 80 Troponin I 0.92 H* Total Protein Albumin Ur Random Sodium < 18 L Ur Random Potassium 39.7 Ur Random Chloride < 11 L 09/28/18 09/29/18 09/29/18 21:00 05:30 05:30 WBC 7.8 RBC 4.02 Hgb 12.6 Hct 38.3 MCV 95.3 MCH 31.5 MCHC 33.0 RDW 16.8 H Plt Count 115 L D MPV 9.0 PT with INR INR PTT (Actin FS) 207.0 H Sodium 137 Potassium 4.5 Chloride 107 Carbon Dioxide 18 L Anion Gap 12 BUN 76 H Creatinine 3.3 H Creat Clearance w eGFR 18.04 Random Glucose 98 Calcium 7.8 L Phosphorus 4.4 Magnesium 2.4 Total Bilirubin 1.4 H AST 834 H ALT 717 H Alkaline Phosphatase 117 Creatine Kinase 60 Troponin I 0.73 H* Total Protein 5.2 L Albumin 2.6 L Ur Random Sodium Ur Random Potassium Ur Random Chloride Vital Signs Temperature 96.6 F L 09/29/18 09:00 Pulse Rate 110 H 09/29/18 09:00 Respiratory Rate 17 09/29/18 09:00 Blood Pressure 108/56 L 09/29/18 09:00 O2 Sat by Pulse Oximetry (%) 98 09/29/18 07:54 CC: some SOB ````````````````````````````` skin--anicteric eyes--eomi lungs--distant heart--RR abd--soft, BS+ neuro--awake; verbal coherent; moves all extremeties ```````````````````````````````````````````````````` Summ > High LFts--still high but a bit lower than yesterday's LFT's. Issue of portal vein thrombus resolved by venous doppler testing which did not bear this out. heparin stopped. Like the high Bun/Cr, the elevated LFts seem to be due to LOW FLOW state, with underperfusion his major organs. > hypotension--largely 2nd bivent dysf. Hr now high to likely compensate for poor output. PLAN: trasil of IV Lopressor to hopefully slow the HR a bit and improve Ej Fx > Hypertensive heart and renal dz--notable bivent dysf (not new);Bun/Cr high above baseline 2nd poor renal perfusion; has elevated Trop levels which aren't new; cont dual antiPLt drugs; will now hope to transfer to [facility] > pacer/defib status--as a result; not a candidate for MRI/MRA ~~~~~~~~~~~~~~~~~~~~~~ Dr Desai Problem List - Problems (1) Hypotension Code(s): I95.9 - HYPOTENSION, UNSPECIFIED Qualifiers: Hypotension type: other hypotension type Qualified Code(s): I95.89 - Other hypotension (2) Chronic diastolic CHF (congestive heart failure), NYHA class 3 Code(s): I50.32 - CHRONIC DIASTOLIC (CONGESTIVE) HEART FAILURE (3) Chronic renal insufficiency Code(s): N18.9 - CHRONIC KIDNEY DISEASE, UNSPECIFIED Qualifiers: Chronic kidney disease stage: stage 3 (moderate) Qualified Code(s): N18.3 - Chronic kidney disease, stage 3 (moderate) (4) Elevated troponin Code(s): R74.8 - ABNORMAL LEVELS OF OTHER SERUM ENZYMES (5) Transaminasemia Code(s): R74.0 - NONSPEC ELEV OF LEVELS OF TRANSAMNS & LACTIC ACID DEHYDRGNSE (6) Encounter for long-term use of antiplatelets/antithrombotics Code(s): Z79.02 - JAIL (CURRENT) USE OF ANTITHROMBOTICS/ANTIPLATELETS (7) AICD (automatic cardioverter/defibrillator) present Code(s): Z95.810 - PRESENCE OF AUTOMATIC (IMPLANTABLE) CARDIAC DEFIBRILLATOR (8) Carotid occlusion, left Code(s): I65.22 - OCCLUSION AND STENOSIS OF LEFT CAROTID ARTERY (9) PAD (peripheral artery disease) Code(s): I73.9 - PERIPHERAL VASCULAR DISEASE, UNSPECIFIED (10) Gout Code(s): M10.9 - GOUT, UNSPECIFIED Qualifiers: Gout etiology: unspecified cause Presence of tophus: without tophus (11) Hypothyroid Code(s): E03.9 - HYPOTHYROIDISM, UNSPECIFIED Qualifiers: Hypothyroidism type: acquired Qualified Code(s): E03.9 - Hypothyroidism, unspecified (12) Dysthymia (or depressive neurosis) Code(s): F34.1 - DYSTHYMIC DISORDER (13) MGUS (monoclonal gammopathy of unknown significance) Code(s): D47.2 - MONOCLONAL GAMMOPATHY
[2018-09-29] MEDS: ASPIRIN COATED 81 MG TABLET.EC PO SCH (09:54)
[2018-09-29] MEDS: FAMOTIDINE 20 MG/50 ML IVPB 20 MG/50 ML MG IVPB SCH (09:54)
[2018-09-29] MEDS: CLOPIDOGREL BISULFATE 75 MG TABLET (FP) PO SCH (09:54)
--- NOTE | 2018-09-29 11:05 | PN ---
GI Progress Note Subjective: No acute events States feeling "so so" Still short of breath, not as bad as on admission Doppler of portal vein failed to demonstrate PVT He denies abdominal pain - Objective Vital Signs: Vital Signs Temperature 96.6 F L 09/29/18 09:00 Pulse Rate 112 H 09/29/18 10:05 Respiratory Rate 18 09/29/18 10:00 Blood Pressure 94/61 09/29/18 10:05 O2 Sat by Pulse Oximetry (%) 98 09/29/18 07:54 Constitutional: Calm Eyes: No: Sclera Icterus Cardiovascular: Yes: Tachycardia Respiratory: Yes: Diminished (at bases bilaterally) Gastrointestinal Inspection: No: Distention ...Auscultate: Yes: Normoactive Bowel Sounds ...Palpate: Yes: Soft (subcutanous nodules palpated along abdomnial wall). No: Hepatomegaly, Splenomegaly, Tenderness ...Percussion: No: Tympanitic Edema: No Neurological: Yes: Alert Labs: CBC, BMP 09/29/18 05:30 09/29/18 05:30 INR, PTT INR 1.68 (0.83-1.09) H 09/28/18 14:20 Problem List - Problems (1) Abnormal liver function tests Assessment/Plan: Improving without direct intervention. Receiving inotropic support Suspect ischemic hepatopathy / passive congestion as etiology Continue to monitor LFTs, check screening hepatitis serologies, avoid hepatotoxic agents Code(s): R94.5 - ABNORMAL RESULTS OF LIVER FUNCTION STUDIES
--- NOTE | 2018-09-29 11:09 | PN ---
Teaching Attending Note Name of Resident: Cynthia Elizabeth ATTENDING PHYSICIAN STATEMENT I saw and evaluated the patient. I reviewed the resident's note and discussed the case with the resident. I agree with the resident's findings and plan as documented. SUBJECTIVE: Patient seen and examined in the ICU. Breathing feels about the same as yesterday, slightly labored. Remains on Dobutamine drip @ 10 mg/hr. No CP. Cardiology arranging for transfer to [place] for further cardiac intervention. CXR: Increasing bilateral congestive changes. OBJECTIVE: Intake & Output 09/26/18 09/27/18 09/28/18 09/29/18 23:59 23:59 23:59 23:59 Intake Total 780 2096 784 Output Total 150 800 310 Balance 630 1296 474 Weight 198 lb 198 lb 198 lb Last Vital Signs Temp Pulse Resp BP Pulse Ox 96.6 F L 108 H 21 H 84/61 L 98 09/29/18 09:00 09/29/18 11:00 09/29/18 11:00 09/29/18 11:00 09/29/18 07:54 Active Medications Aspirin (Ecotrin -) 81 mg PO DAILY [facility] Last Admin: 09/29/18 09:54 Dose: 81 mg Clopidogrel Bisulfate (Plavix -) 75 mg PO DAILY [facility] Last Admin: 09/29/18 09:54 Dose: 75 mg Famotidine/Sodium Chloride (Pepcid 20 Mg Premixed Ivpb -) 20 mg in 50 mls @ 100 mls/hr IVPB BID [facility] Last Admin: 09/29/18 09:54 Dose: 100 mls/hr Dextrose/Sodium Chloride (D5-Ns -) 1,000 mls @ 42 mls/hr IV ASDIR [facility] Last Admin: 09/28/18 22:25 Dose: Not Given Dobutamine HCl/Dextrose (Dobutamine 250 Mg/D5w -) 250,000 mcg in 250 mls @ 26.943 mls/hr IV TITR [facility]; Protocol Last Titration: 09/29/18 08:00 Dose: 12 mcg/kg/min, 64.664 mls/hr Levothyroxine Sodium (Synthroid -) 50 mcg PO DAILY@0700 [facility] Last Admin: 09/29/18 06:36 Dose: 50 mcg Lorazepam (Ativan -) 0.5 mg PO DAILY PRN PRN Reason: ANXIETY Paroxetine HCl (Paxil -) 5 mg PO HS [facility] Last Admin: 09/28/18 22:27 Dose: 5 mg Gen: Awake and alert, breathing nonlabored Heart: RRR Lung: Bibasilar rales Abd: soft, nontender Ext: no edema [place]: non-focal Laboratory Results - last 24 hr 09/28/18 09/28/18 09/28/18 09:20 14:20 17:30 WBC RBC Hgb Hct MCV MCH MCHC RDW Plt Count MPV PT with INR 19.90 H INR 1.68 H PTT (Actin FS) 35.3 Sodium Potassium Chloride Carbon Dioxide Anion Gap BUN Creatinine Creat Clearance w eGFR Random Glucose Calcium Phosphorus Magnesium Total Bilirubin AST ALT Alkaline Phosphatase Creatine Kinase 80 Troponin I 0.92 H* Total Protein Albumin Ur Random Potassium 39.7 09/28/18 09/29/18 09/29/18 21:00 05:30 05:30 WBC 7.8 RBC 4.02 Hgb 12.6 Hct 38.3 MCV 95.3 MCH 31.5 MCHC 33.0 RDW 16.8 H Plt Count 115 L D MPV 9.0 PT with INR INR PTT (Actin FS) 207.0 H Sodium 137 Potassium 4.5 Chloride 107 Carbon Dioxide 18 L Anion Gap 12 BUN 76 H Creatinine 3.3 H Creat Clearance w eGFR 18.04 Random Glucose 98 Calcium 7.8 L Phosphorus 4.4 Magnesium 2.4 Total Bilirubin 1.4 H AST 834 H ALT 717 H Alkaline Phosphatase 117 Creatine Kinase 60 Troponin I 0.73 H* Total Protein 5.2 L Albumin 2.6 L Ur Random Potassium ASSESSMENT AND PLAN: Acute on Chronic Renal Failure Severe LV Systolic Dysfunction Cardiogenic Shock s/p PPM +Troponins likely Demand Ischemia CAD Elevated LFTs HTN Hypothyroidism Anxiety Dobutamine drip O2 as needed Strict I & O ASA Plavix For transfer to [place] for further cardiac intervention Dr Rudolph Critical care time spent in reviewing chart, evaluating patient and formulating plan - 36 minutes.
[2018-09-29] MEDS ORDERED: FUROSEMIDE 40 MG/4 ML INJECTABLE VIAL IVPUSH ONE (11:30)
--- NOTE | 2018-09-29 11:40 | PN ---
Physical Exam: SUBJECTIVE: Patient seen and examined this morning in ICU. No acute overnight events. Currently denies any Chest pressure, palpitations. OBJECTIVE: Vital Signs Period Temp Pulse Resp BP Sys/Ramirez Pulse Ox Last 24 Hr 96.6 F-98.2 F 75-113 17-26 78-108/53-66 96-98 GENERAL: A&Ox3, NAD HEAD: NCAT EYES: PERRL, EOMI ENT: Moist mucous membranes NECK: Supple, No JVD LUNGS: Bibasilar rales, no wheezes, no crackles HEART: Regular rate and rhythm, S1, S2 ABDOMEN: Soft, nontender, nondistended, + bowel sounds, no guarding EXTREMITIES: No edema. NEUROLOGICAL: Cranial nerves II through XII grossly intact. Normal speech SKIN: Warm, dry Laboratory Results - last 24 hr 09/28/18 09/28/18 09/28/18 09:20 14:20 17:30 WBC RBC Hgb Hct MCV MCH MCHC RDW Plt Count MPV PT with INR 19.90 H INR 1.68 H PTT (Actin FS) 35.3 Sodium Potassium Chloride Carbon Dioxide Anion Gap BUN Creatinine Creat Clearance w eGFR Random Glucose Calcium Phosphorus Magnesium Total Bilirubin AST ALT Alkaline Phosphatase Creatine Kinase 80 Troponin I 0.92 H* Total Protein Albumin Ur Random Potassium 39.7 09/28/18 09/29/18 09/29/18 21:00 05:30 05:30 WBC 7.8 RBC 4.02 Hgb 12.6 Hct 38.3 MCV 95.3 MCH 31.5 MCHC 33.0 RDW 16.8 H Plt Count 115 L D MPV 9.0 PT with INR INR PTT (Actin FS) 207.0 H Sodium 137 Potassium 4.5 Chloride 107 Carbon Dioxide 18 L Anion Gap 12 BUN 76 H Creatinine 3.3 H Creat Clearance w eGFR 18.04 Random Glucose 98 Calcium 7.8 L Phosphorus 4.4 Magnesium 2.4 Total Bilirubin 1.4 H AST 834 H ALT 717 H Alkaline Phosphatase 117 Creatine Kinase 60 Troponin I 0.73 H* Total Protein 5.2 L Albumin 2.6 L Ur Random Potassium Active Medications Aspirin (Ecotrin -) 81 mg PO DAILY [facility] Last Admin: 09/29/18 09:54 Dose: 81 mg Clopidogrel Bisulfate (Plavix -) 75 mg PO DAILY [facility] Last Admin: 09/29/18 09:54 Dose: 75 mg Furosemide (Lasix Injection -) 40 mg IVPUSH ONCE ONE Stop: 09/29/18 11:12 Famotidine/Sodium Chloride (Pepcid 20 Mg Premixed Ivpb -) 20 mg in 50 mls @ 100 mls/hr IVPB BID [facility] Last Admin: 09/29/18 09:54 Dose: 100 mls/hr Dextrose/Sodium Chloride (D5-Ns -) 1,000 mls @ 42 mls/hr IV ASDIR [facility] Last Admin: 09/28/18 22:25 Dose: Not Given Dobutamine HCl/Dextrose (Dobutamine 250 Mg/D5w -) 250,000 mcg in 250 mls @ 26.943 mls/hr IV TITR [facility]; Protocol Last Titration: 09/29/18 08:00 Dose: 12 mcg/kg/min, 64.664 mls/hr Levothyroxine Sodium (Synthroid -) 50 mcg PO DAILY@0700 [facility] Last Admin: 09/29/18 06:36 Dose: 50 mcg Lorazepam (Ativan -) 0.5 mg PO DAILY PRN PRN Reason: ANXIETY Paroxetine HCl (Paxil -) 5 mg PO HS [facility] Last Admin: 09/28/18 22:27 Dose: 5 mg ASSESSMENT/PLAN: 83 y/o M with PMHx of HFrEF s/p AICD, HTN, HLD, PAD, Prior TIA, CKD (stage 1), MGUS, ANxiety, OA, Gout, Hypothyroidism presents with worsening dyspnea, found to be hypotensive and will be monitorred in ICU. #Neuro Hx of Prior TIA, Anxiety -No Active Issues, Continue to monitor -Continue Paroxetine 5mg PO HS #Cardio Hx of HFrEF s/p AICD, HTN, HLD, PAD Elevated Troponin, BNP -Hypotensive on Admission likely due to dehydration vs Low EF -Continue Dobutamine; Taper to maintain MAP > 65 -Trial IV Lopressor -Trops trending down -ECHO (09/13): LV Systolic function severely reduced, LV Severe global hypokinesis, LA and RA Severly dilated, Mod to Severe TR, RV systolic pressure elevated, prosthetic Aortic valve, Mild AR, moderate MR -EKG: AV dual-paced rhythm with prolonged AV conduction, Biventricular pacemaker detected, VR 75, QTc 567 -Continue ASA, Plavix -Hold home dose Carvedilol, Furosemide, Statin -Cardiology (Dr. Landon) Consulted, Appreciate Rec's -Transfer to [facility] as per cardiology #Pulm -CXR with some congestive changes this AM -Lasix IV 40mg x1 given -Maintaining Airway, No Active Issues, Continue to monitor -Supplemental O2 to maintian Sat > 90% #GI Transaminitis, Improving Elevated INR Nausea, Unclear Etiology -WNL on prior visit; Likely due to congestion -Abdomen/Liver US: Mild hepatomegaly with fatty infiltration versus hepatocellular disease. Normal size spleen. Right pleural effusion. Gallstones with a sludge and thickening of its wall. No pericholecystic free fluid is present. Stepdown Nurse reported negative Pyle's sign. No gross flow could be demonstrated in the main portal vein. -Portal vein doppler did not reveal evidence of Thrombosis -Hold home dose statin -Continue to monitor -Hepatitis panel pending #Renal ESTELLA, Improving CKD (stage 1) -UA 1+ Protein -BUN 46 and Cr 1.8 on prior visit; Baseline ~40/2.5 -Likely due to Hypoperfusion -Kidney/Renal US: Bilateral renal simple cysts -Urine Studies Noted -Trend BUN, Cr, lytes -Monitor daily weight, I&Os #Heme MGUS -Stable with No Active Issues, Continue to monitor #Endocrine Hypothyroidism -TSH 0.84 -Continue Levothyroxine 50mcg PO DAILY #ID -Afebrile without elevated WBC Count -No Active Issues, Continue to monitor #MSK Hx of OA, Gout -Stable with No Active Issues, Continue to monitor -Continue home dose Allopurinol #FEN -PO Fluids -Replete Lytes PRN -NPO for possible Cardiac procedure #PPx -DVT: SCDs -GI: Famotidine Code status: Full Code Dispo: For transfer to [facility] Visit type - Emergency Visit Emergency Visit: Yes ED Registration Date: 09/26/18 Care time: The patient presented to the Emergency Department on the above date and was hospitalized for further evaluation of their emergent condition. - New Patient This patient is new to me today: No - Critical Care Critical Care patient: Yes Total Critical Care Time (in minutes): 37 Critical Care Statement: The care of this patient involved high complexity decision making to prevent further life threatening deterioration of the patient 's condition and/or to evaluate & treat vital organ system(s) failure or risk of failure.
--- NOTE | 2018-09-29 11:57 | EKG ---
Test Reason : Blood Pressure : / mmHG Vent. Rate : 111 BPM Atrial Rate : 104 BPM P-R Int : 000 ms QRS Dur : 170 ms QT Int : 414 ms P-R-T Axes : 000 129 -60 degrees QTc Int : 563 ms POOR DATA QUALITY, INTERPRETATION MAY BE ADVERSELY AFFECTED Ventricular-paced rhythm Biventricular pacemaker detected ABNORMAL ECG WHEN COMPARED WITH ECG OF 28-SEP-2018 11:07, VENT. RATE HAS INCREASED BY 36 BPM Confirmed by MARILYN OLVERA, JEAN ([id number]) on 09/29/2018 11:56:48 AM Referred By: Confirmed By:JEAN SANDERS MD
[2018-09-29] MEDS: FLUTICASONE PROP 0.05% 16 GM NASAL SPRAY NS SCH ×2 (13:54→13:57)
[2018-09-29 16:04] VITALS: TEMP 98.1
[2018-09-29] MEDS ORDERED: DOPAMINE 400 MG/D5W - 400,000 MCG/250 ML INFUS.BAG IVPB SCH (18:15)
[2018-09-29] MEDS: DEXTROSE 5%-NORMAL SALINE 1,000 ML IV SCH (19:10)
[2018-09-29 19:23] VITALS: PULSE 93
[2018-09-29 20:07] VITALS: BP 77/53
== END 2018-09-29 21:08 | disposition short-term general hospital (02) | DRG 291 ==
LOC: JER 13:07 → JERBED 14:58 → JICU 09-27 03:18
PROVIDERS: ADMIT Internal Medicine; ATTEND Internal Medicine
DX: I13.0 Hypertensive heart and chronic kidney disease with heart failure and stage 1 through stage 4 chronic kidney disease, or unspecified chronic kidney disease (principal); I50.43 Acute on chronic combined systolic (congestive) and diastolic (congestive) heart failure; N17.9 Acute kidney failure, unspecified; E87.1 Hypo-osmolality and hyponatremia; I24.8 Other forms of acute ischemic heart disease; N18.3 Chronic kidney disease, stage 3 (moderate); I25.10 Atherosclerotic heart disease of native coronary artery without angina pectoris; E87.5 Hyperkalemia; I95.89 Other hypotension; I73.9 Peripheral vascular disease, unspecified; M10.9 Gout, unspecified; I65.22 Occlusion and stenosis of left carotid artery; R74.0 Nonspecific elevation of levels of transaminase and lactic acid dehydrogenase [LDH]; K76.1 Chronic passive congestion of liver; E03.9 Hypothyroidism, unspecified; E78.5 Hyperlipidemia, unspecified; F41.8 Other specified anxiety disorders
CPT/HCPCS: 36415; 71045-TC-FY; 76700-TC; 76775-TC; 80053; 81003; 81015; 82436; 82550; 82570; 83735; 83880; 84100; 84133; 84300; 84443; 84484; 85025; 85027; 85610; 85730; 93005; 93010; 93976; 94640; 99285-25; J1250; J1644

== ENCOUNTER 2018-11-09 12:42 | Inpatient (IN) | payer OTHER, MEDICARE ==
--- NOTE | 2018-11-09 13:42 | PDOC ---
History of Present Illness <Damaris Dacosta - Last Filed: 11/09/18 16:34> - History of Present Illness Initial Comments: 83yo M with PMH of diastolic CHF- class 3 s/p AICD, CAD s/p CABG, CKD- stage 1, hypothyroid, PAD, TIA presenting with shortness of breath. Patient has felt this way before, most recently when he was admitted to this [facility] ICU. In his last admission, patient was ultimately transferred to [place] where he received an aortic valve replacement. He then went to rehab and has not been home for the past two weeks. Patient reports that things had been fine at home until yesterday when he started feeling short of breath. 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 Patient states as he was walking across the street, he felt very short of breath. Denies any chest pain or lower leg edema. No fevers, chills, or abdominal pain. <Nicole Shetty - Last Filed: 11/10/18 00:36> - General Chief Complaint: Shortness of Breath Stated Complaint: SENT BY PCP/CHEST PAIN Time Seen by Provider: 11/09/18 13:25 Past History <Damaris Dacosta - Last Filed: 11/09/18 16:34> - Past Medical History Anemia: No Asthma: No Cancer: No Cardiac Disorders: Yes (AV&MV repair) CVA: Yes (TIA 10 yrs ago) COPD: No CHF: Yes Dementia: No Diabetes: No GI Disorders: No Disorders: No HTN: Yes Hypercholesterolemia: Yes Liver Disease: No Psychiatric Problems: Yes (Anxiety ) Seizures: No Thyroid Disease: Yes (Hypothyroid) - Surgical History Abdominal Surgery: No Appendectomy: No Cardiac Surgery: Yes (Aortic/Mitral valve replacement; CABG; AICD) Cholecystectomy: No Lung Surgery: No Neurologic Surgery: No Orthopedic Surgery: Yes (Left knee arthoscopy) - Immunization History Immunization Up to Date: Yes - Suicide/Smoking/Psychosocial Hx Smoking Status: Yes Smoking History: Never smoked Have you smoked in the past 12 months: No Number of Cigarettes Smoked Daily: 20 If you are a former smoker, when did you quit?: 4 years ago Information on smoking cessation initiated: No Hx Alcohol Use: No Drug/Substance Use Hx: No Substance Use Type: None Hx Substance Use Treatment: No <Nicole Shetty - Last Filed: 11/10/18 00:36> - Past Medical History Allergies/Adverse Reactions: Allergies Allergy/AdvReac Type Severity Reaction Status Date / Time lisinopril Allergy Intermediate Cough Verified 11/09/18 13:44 Penicillins Allergy Intermediate Rash Verified 11/09/18 13:44 pravastatin sodium Allergy Intermediate MUSCLE PAIN Verified 11/09/18 13:44 [From Pravachol] simvastatin [From Zocor] Allergy Intermediate MUSCLE PAIN Verified 11/09/18 13: 44 sertraline Allergy Unknown Verified 11/09/18 13:44 Home Medications: Ambulatory Orders Allopurinol [Zyloprim -] 300 mg PO DAILY 12/19/15 Aspirin [ASA -] 81 mg PO DAILY 12/19/15 Clopidogrel Bisulfate [Plavix -] 75 mg PO DAILY 12/19/15 Levothyroxine [Synthroid -] 75 mcg PO DAILY 12/19/15 Paroxetine HCl [Paxil -] 20 mg PO DAILY 12/19/15 Rosuvastatin [Crestor -] 40 mg PO HS 12/19/15 Furosemide [Lasix -] 40 mg PO DAILY 06/30/16 Carvedilol [Coreg -] 3.125 mg PO BID 11/09/18 Multivit-Min/Iron Fum/Folic AC [Dusei-Wwseups-Njlywqgd Tablet] 1 each PO DAILY 11/09/18 Pantoprazole Sodium [Protonix -] 40 mg PO DAILY 11/09/18 Review of Systems - Review of Systems Comments:: Constitutional: no fever, no chills HEENT: no throat pain, no dysphagia Cardiovascular: no chest pain, no palpitations Respiratory: no cough, +shortness of breath Gastrointestinal: no abdominal pain, +nausea Genitourinary: no dysuria, no frequency Musculoskeletal: no myalgia, no arthralgia Skin: no rash, no itching Neurologic: no headache, no dizziness <Nicole Shetty - Last Filed: 11/10/18 00:36> *Physical Exam - Vital Signs Last Vital Signs Temp Pulse Resp BP Pulse Ox 98.1 F 75 18 104/74 95 11/09/18 12:55 11/09/18 13:46 11/09/18 12:55 11/09/18 12:55 11/09/18 13:46 Damaris Alba - Last Filed: 11/09/18 16:34> - Vital Signs Last Vital Signs Temp Pulse Resp BP Pulse Ox 98.1 F 75 18 104/74 100 11/09/18 12:55 11/09/18 12:55 11/09/18 12:55 11/09/18 12:55 11/09/18 12:55 - Physical Exam Comments: General: Awake, alert, and fully oriented, in no acute distress Head: No signs of trauma Eyes: EOMI, sclera anicteric ENT: Moist mucus membranes Neck: Normal ROM, supple Lungs: Lungs clear, Normal breath sounds Cardio: Regular rhythm, S1 and S2 present Abdomen: Soft, nontender. No guarding, no rebound, no masses Extremities: Normal range of motion, Distal pulses present, No BLE edema SKIN: Warm, Dry, normal turgor Neurologic: Cranial nerves II through XII grossly intact. Normal speech <Nicole Shetty - Last Filed: 11/10/18 00:36> Moderate Sedation - Procedure Monitoring Vital Signs: Procedure Monitoring Vital Signs Temperature 98.1 F 11/09/18 12:55 Pulse Rate 75 11/09/18 13:46 Respiratory Rate 18 11/09/18 12:55 Blood Pressure 104/74 11/09/18 12:55 O2 Sat by Pulse Oximetry (%) 95 11/09/18 13:46 <OlesyaDamaris Montoya - Last Filed: 11/09/18 16:34> - Procedure Monitoring Vital Signs: Procedure Monitoring Vital Signs Temperature 98.1 F 11/09/18 12:55 Pulse Rate 75 11/09/18 12:55 Respiratory Rate 18 11/09/18 12:55 Blood Pressure 104/74 11/09/18 12:55 O2 Sat by Pulse Oximetry (%) 100 11/09/18 12:55 <Nicole Shetty - Last Filed: 11/10/18 00:36> ED Treatment Course - LABORATORY CBC & Chemistry Diagram: 11/09/18 14:45 11/09/18 14:50 - ADDITIONAL ORDERS Additional order review: Laboratory Results 11/09/18 11/09/18 11/09/18 14:50 14:50 14:05 PT with INR 13.30 H Cancelled INR 1.13 H Cancelled PTT (Actin FS) 32.8 Sodium 138 Potassium 4.9 Chloride 108 H Carbon Dioxide 23 Anion Gap 7 L BUN 25 H Creatinine 1.7 H Creat Clearance w eGFR 38.78 Random Glucose 95 Calcium 8.9 Total Bilirubin 0.8 AST 16 ALT 17 Alkaline Phosphatase 88 Creatine Kinase 40 Troponin I 0.15 H B-Natriuretic Peptide 91278.6 H Total Protein 6.6 Albumin 3.2 L TSH 1.81 D 11/09/18 14:45 RBC 4.06 MCV 95.2 MCHC 32.8 RDW 16.9 H MPV 8.8 Neutrophils % 56.8 D Lymphocytes % 32.4 D Monocytes % 8.9 Eosinophils % 1.1 D Basophils % 0.8 <Damaris Dacosta - Last Filed: 11/09/18 16:34> - LABORATORY CBC & Chemistry Diagram: 11/09/18 14:45 11/09/18 14:50 <Nicole Shetty - Last Filed: 11/10/18 00:36> Medical Decision Making - Medical Decision Making 83yo M with PMH of diastolic CHF- class 3 s/p AICD, CAD s/p CABG, CKD- stage 1, hypothyroid, PAD, TIA presenting with shortness of breath. DDX including but not limited to CHF exacerbation, ACS, PNA, PE Plan for admission Full Code No anemia or leukocytosis Electrolytes WNL Cr=1.7 (lower than patient's baseline) Tpn=0.15 (at patient's baseline) QOU=66719.6 (lower than value from previous admission) CXR: Cardiomegaly, no acute disease EKG with no significant change from prior Discussed case with Dr. Desai who accepted patient for admission. Discussed case with Dr. Kidd who recommended 40 lasix as well as telemetry admission. 11/09/18 17:12 <Nicole Shetty - Last Filed: 11/10/18 00:36> *DC/Admit/Observation/Transfer - Discharge Dispostion Decision to Admit order: Yes Decision to Admit order Date/Time: 11/09/18 16:34 <Damaris Dacosta - Last Filed: 11/09/18 16:34> - Discharge Dispostion Decision to Admit order: Yes <Nicole Shetty - Last Filed: 11/10/18 00:36> Diagnosis at time of Disposition: CHF (congestive heart failure), NYHA class III - Discharge Dispostion Condition at time of disposition: Guarded
--- NOTE | 2018-11-09 14:31 | PDOC ---
Attending Attestation - Resident Resident Name: Nicole Shetty - ED Attending Attestation I have performed the following: I have examined & evaluated the patient, The case was reviewed & discussed with the resident, I agree w/resident's findings & plan - HPI HPI: 11/09/18 16:29 83YOM, with a significant past medical history of HTN, CHF, HTN, CAD (s/p pacemaker/defibrillator implantation, last interrogated today and poor ECHO done in office today), Gout, OA, Hypothyroidism, and anxiety, who presents to the emergency department with, 2 days of worsening shortness of breath. He was seen at his cardiologists office today who advised him to report to the ED. Patient was recently transferred to recent transfer to [facility] for aortic valve replacement, patient notes symptoms are similar to when he needed his valve replacement and CHF decompensation. Denies fever, chills, chest pain, palpitation, dizziness, weakness, N, V, D, abdominal pain, bladder and bowel problems, leg swelling, No sick contacts or travel. No new changes in medications. Allergies: NKA Past Medical History: HTN, CHF, HTN, CAD (s/p pacemaker/defibrillator implantation, last interrogated today and poor ECHO done in office today), Gout , OA, Hypothyroidism, and anxiety Social history: Lives with family. No smoking. No alcohol. No illicit drugs. Surgical history: Hernia repair, Aortic/Mitral valve replacement; CABG; AICD, left knee arthroscopic surgery. PMD: Dr. Desai [employer] Curator: Dr. Kidd - Physicial Exam PE: 11/09/18 16:29 NAD, well appearing, PERRL, EOMI, MMM, nl conjunctiva, anicteric; neck supple + mild JVD. lungs clear, RR, +Pacemaker/defibrillator on left side, Systolic murmur. abdomen soft nontender. PAPPAS x4, no focal neuro deficits. No peripheral edema. normal color for ethnicity, [facility]. - Medical Decision Making 11/09/18 16:30 See HPI for details Diff diagnosis includes CHF, COPD, ACS, arrhythmia, electrolyte/metabolic derangements, anemia, pleural effusion, pleurisy, pneumonia, decompensated heart failure, valvular heart disease/palpation. doubt PE or dissection with clinical history. Vital signs reviewed, wnl. no hypoxia, Prior notes reviewed, including admissions, discharges and consultations. laboratory results and imaging reviewed, basic labs and lytes wnl, notable for baseline elevation in bnp with CHF. trop elevated 0.15, but lower than prior numbers, tele monitor, no events CXR with PPM/Defib in place; cardiomegaly, mild pulmonary vascular congestion but no overt pulmonary edema. EKG V paced pattern at 75 bpm, no interval abnormalities, narrow QRS, ST and T wave segments and morphology normal. Nonspecific T wave abnormalities - appropriate discordance <5mm, no concordance. ED course - bedside pocus echo with b lines, pleural effusion and EF <10% on visual estimation, no pericardial effusion. - no events. no respiratory distress, well appearing admit for telemetry, CHF decompensation, cards cs and further medical management 11/09/18 16:30 11/09/18 16:32 11/09/18 16:33 Heart Score/ECG Review #1 ECG reviewed & interpreted by me at: 12:55 General ECG Interpretation: Normal Rate Compared to previous ECG there are: No significant change 11/09/18 16:32 EKG V paced pattern at 75 bpm, no interval abnormalities, narrow QRS, ST and T wave segments and morphology normal. Nonspecific T wave abnormalities - appropriate discordance <5mm, no concordance.
[2018-11-09 15:12] LABS: BASO % 0.8 % (0-2.0); EOS % 1.1 % (0-4.5); HEMATOCRIT 38.7 % (35.4-49); HEMOGLOBIN 12.7 GM/dL (11.7-16.9); LYMPH % 32.4 % (8-40); MCH 31.2 pg (25.7-33.7); MCHC 32.8 g/dl (32.0-35.9); MEAN CELL VOLUME 95.2 fl (80-96); MEAN PLT VOLUME 8.8 fl (7.5-11.1); MONO % 8.9 % (3.8-10.2); NEUT % 56.8 % (42.8-82.8); PLATELET COUNT 135 K/MM3 (134-434); RBC 4.06 M/mm3 (4.00-5.60); RDW 16.9 % (11.9-15.9); WHITE BLOOD COUNT 6.2 K/mm3 (4.0-10.0)
[2018-11-09 15:22] LABS: INR 1.13 (0.83-1.09); PROTHROMBIN TIME (PATIENT) 13.3 SEC (9.7-13.0)
[2018-11-09 15:25] LABS: ACTIVATED PTT 32.8 SECONDS (25.2-36.5)
--- NOTE | 2018-11-09 15:29 | PN ---
Progress Note, Physician History of Present Illness: PMH s/p bio AVR #25 pericardial aortic valve and MV repair P2,P3 quadrangular resection [facility] dr. Prasad 2004 valve in valve TAVR 10-04-18 [facility] Ongoing medical problems [employer] AICD BIvi-pacing 2015 Dr. 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 2014 - Objective Vital Signs: Vital Signs Temperature 98.1 F 11/09/18 12:55 Pulse Rate 75 11/09/18 13:46 Respiratory Rate 18 11/09/18 12:55 Blood Pressure 104/74 11/09/18 12:55 O2 Sat by Pulse Oximetry (%) 95 11/09/18 13:46 Labs: CBC, BMP 11/09/18 14:45 INR, PTT INR 1.13 (0.83-1.09) H 11/09/18 14:50
[2018-11-09 16:09] LABS: ALBUMIN 3.2 g/dl (3.4-5.0); ALK PHOS 88 U/L (45-117); ANION GAP 7 MMOL/L (8-16); BILIRUBIN,TOTAL 0.8 mg/dL (0.2-1); BLOOD UREA NITROGEN 25 mg/dL (7-18); CALCIUM 8.9 mg/dL (8.5-10.1); CHLORIDE 108 mmol/L (98-107); CO2 23 mmol/L (21-32); CREATININE 1.7 mg/dL (0.55-1.3); GLUCOSE,RANDOM 95 mg/dL (74-106); N-TERMINAL BNP 33706.6 pg/ml (5-450); POTASSIUM 4.9 mmol/L (3.5-5.1); SGOT/AST 16 U/L (15-37); SGPT/ALT 17 U/L (13-61); SODIUM 138 mmol/L (136-145); TOT PROT 6.6 g/dl (6.4-8.2)
[2018-11-09] MEDS ORDERED: FUROSEMIDE 40 MG/4 ML INJECTABLE VIAL IVPUSH ONE (16:58)
[2018-11-09] MEDS ORDERED: FUROSEMIDE 40 MG/4 ML INJECTABLE VIAL ONE (17:48)
[2018-11-09] MEDS: DOCUSATE SODIUM 100 MG CAPSULE (FP) PO SCH (21:55)
[2018-11-10] MEDS: LEVOTHYROXINE NA 50 MCG TABLET (FP) PO SCH (06:34)
[2018-11-10 08:06] LABS: ANION GAP 7 MMOL/L (8-16); BLOOD UREA NITROGEN 26 mg/dL (7-18); CALCIUM 8.9 mg/dL (8.5-10.1); CHLORIDE 107 mmol/L (98-107); CO2 24 mmol/L (21-32); CREATININE 1.8 mg/dL (0.55-1.3); GLUCOSE,RANDOM 91 mg/dL (74-106); POTASSIUM 4.5 mmol/L (3.5-5.1); SODIUM 138 mmol/L (136-145); URIC ACID 4.8 mg/dL (2.6-7.2)
[2018-11-10] MEDS ORDERED: PT OWN MED DRAWER 7, Y5N ONE ×2 (09:14→12:27)
[2018-11-10] MEDS: CLOPIDOGREL BISULFATE 75 MG TABLET (FP) PO SCH (09:46)
[2018-11-10] MEDS: ASPIRIN COATED 81 MG TABLET.EC PO SCH (09:46)
[2018-11-10] MEDS: SPIRONOLACTONE 25 MG TABLET (FP) PO SCH (09:46)
[2018-11-10] MEDS: FUROSEMIDE 40 MG/4 ML INJECTABLE VIAL IVPUSH SCH (09:47)
[2018-11-10] MEDS ORDERED: metoPROLOL SUCCINATE 25 MG TAB.SR.24H (FP) PO SCH (10:00)
--- NOTE | 2018-11-10 11:11 | EKG ---
Test Reason : Blood Pressure : / mmHG Vent. Rate : 075 BPM Atrial Rate : 078 BPM P-R Int : 000 ms QRS Dur : 176 ms QT Int : 492 ms P-R-T Axes : 000 110 -65 degrees QTc Int : 549 ms Ventricular-paced rhythm Biventricular pacemaker detected ABNORMAL ECG WHEN COMPARED WITH ECG OF 28-SEP-2018 19:01, VENT. RATE HAS DECREASED BY 36 BPM Confirmed by PAM LOWERY MD ([id number]) on 11/10/2018 11:10:42 AM Referred By: Confirmed By:PAM LOWERY MD
--- NOTE | 2018-11-10 11:30 | ECHO ---
Name: UTE MISHRA Exam:Adult Echocardiogram Study Date: 11/10/2018 10:07 AM Age: 83 yrs Reason For Study: ef s/p AVR TAVR valve in valv s/p MV Height: 70 in Weight: 180 lb BSA: 2.0 m2 MMode/2D Measurements & Calculations IVSd: 1.1 cm LA dimension: 5.9 cm LVIDd: 6.8 cm LVIDs: 6.2 cm LVPWd: 1.0 cm EDV(Teich): 235.5 ml LVOT diam: 2.1 cm ESV(Teich): 196.9 ml LAV (MOD-bp): 162.0 ml TAPSE: 1.2 cm RV S Julio: 6.9 cm/sec Doppler Measurements & Calculations MV E max julio: 150.0 cm/sec MVA(VTI): 1.6 cm2 MV A max julio: 45.9 cm/sec MV V2 max: 158.4 cm/sec MV E/A: 3.3 MV max P.0 mmHg MV V2 mean: 75.0 cm/sec MV mean P.1 mmHg MV V2 VTI: 28.8 cm Ao V2 max: 276.0 cm/sec LV V1 max P.6 mmHg Ao max P.5 mmHg LV V1 mean P.3 mmHg Ao V2 mean: 183.7 cm/sec LV V1 max: 81.3 cm/sec Ao mean P.8 mmHg LV V1 mean: 51.9 cm/sec Ao V2 VTI: 56.9 cm LV V1 VTI: 13.7 cm HARRY(I,D): 0.83 cm2 HARRY(V,D): 1.0 cm2 MR max julio: 419.2 cm/sec SV(LVOT): 47.4 ml MR max P.3 mmHg TR max julio: 278.7 cm/sec Med Peak E' Julio: 4.6 cm/sec TR max P.1 mmHg Med E/e': 32.8 Left Ventricle The left ventricle is moderately dilated. Left ventricular systolic function is severely reduced. Eje ction Fraction = 15-20%. The transmitral spectral Doppler flow pattern is suggestive of restrictive physiol ogy. Right Ventricle There is a pacemaker lead in the right ventricle. The right ventricle is normal in size and function. Atria The left atrium is severely dilated. Right atrial size is normal. Mitral Valve Suspected prior mitral valve repair. There is no mitral valve stenosis. There is mild to moderate stevan ral regurgitation. Tricuspid Valve The tricuspid valve is not well visualized, but is grossly normal. There is mild to moderate tricuspi d regurgitation. Right ventricular systolic pressure is elevated at 30-40mmHg. Aortic Valve Status post TAVR. Mean transaortic valve gradient: 15mmHg. No aortic regurgitation is present. Pulmonic Valve The pulmonic valve is not well seen, but is grossly normal. There is no pulmonic valvular stenosis. M ild pulmonic valvular regurgitation. Great Vessels The aortic root is normal size. Pericardium/Pleura There is no pericardial effusion. Interpretation Summary The left ventricle is moderately dilated. Left ventricular systolic function is severely reduced. Ejection Fraction = 15-20%. There is a pacemaker lead in the right ventricle. The right ventricle is normal in size and function. The left atrium is severely dilated. Suspected prior mitral valve repair. There is mild to moderate mitral regurgitation. There is mild to moderate tricuspid regurgitation. Right ventricular systolic pressure is elevated at 30-40mmHg. Status post TAVR. Mean transaortic valve gradient: 15mmHg. There is no pericardial effusion. MD Matos *Oleg 11/10/2018 11:30 AM
--- NOTE | 2018-11-10 12:26 | PN ---
Progress Note, Physician History of Present Illness: PMH s/p bio AVR #25 pericardial aortic valve and MV repair P2,P3 quadrangular resection [facility] dr. Prasad 2005 valve in valve TAVR 10-04-18 [facility] Ongoing medical problems [employer] AICD BIvi-pacing 2015 Dr. 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 2014 - Current Medication List Current Medications: Active Medications Aspirin (Ecotrin -) 81 mg PO DAILY [facility] Last Admin: 11/10/18 09:46 Dose: 81 mg Clopidogrel Bisulfate (Plavix -) 75 mg PO DAILY [facility] Last Admin: 11/10/18 09:46 Dose: 75 mg Docusate Sodium (Colace -) 100 mg PO HS [facility] Last Admin: 11/09/18 21:55 Dose: 100 mg Furosemide (Lasix Injection -) 40 mg IVPUSH DAILY [facility] Last Admin: 11/10/18 09:47 Dose: 40 mg Levothyroxine Sodium (Synthroid -) 50 mcg PO DAILY@0700 [facility] Last Admin: 11/10/18 06:34 Dose: 50 mcg Metoprolol Succinate (Toprol Xl -) 12.5 mg PO DAILY [facility] Last Admin: 11/10/18 09:46 Dose: 12.5 mg Paroxetine HCl (Paxil -) 10 mg PO DAILY [facility] Spironolactone (Aldactone -) 25 mg PO DAILY [facility] Last Admin: 11/10/18 09:46 Dose: 25 mg - Objective Vital Signs: Vital Signs Temperature 98.4 F 11/10/18 06:00 Pulse Rate 78 11/10/18 06:00 Respiratory Rate 18 11/10/18 06:00 Blood Pressure 97/63 11/10/18 06:00 O2 Sat by Pulse Oximetry (%) 98 11/09/18 20:40 Eyes: Yes: WNL, Conjunctiva Clear, EOM Intact HENT: Yes: WNL, Atraumatic, Normocephalic Neck: Yes: WNL, Supple, Trachea Midline Cardiovascular: Yes: WNL, Regular Rate and Rhythm Respiratory: Yes: WNL, Regular, CTA Bilaterally Gastrointestinal: Yes: WNL, Normal Bowel Sounds Genitourinary: Yes: WNL Musculoskeletal: Yes: WNL Extremities: Yes: WNL Edema: No Integumentary: Yes: WNL Neurological: Yes: WNL, Alert, Oriented ...Motor Strength: WNL Psychiatric: Yes: WNL Labs: CBC, BMP 11/09/18 14:45 11/10/18 06:25 INR, PTT INR 1.13 (0.83-1.09) H 11/09/18 14:50 Laboratory Tests 11/09/18 11/09/18 11/09/18 14:05 14:45 14:50 WBC 6.2 RBC 4.06 Hgb 12.7 Hct 38.7 MCV 95.2 MCH 31.2 MCHC 32.8 RDW 16.9 H Plt Count 135 MPV 8.8 Absolute Neuts (auto) 3.5 Neutrophils % 56.8 D Lymphocytes % 32.4 D Monocytes % 8.9 Eosinophils % 1.1 D Basophils % 0.8 Nucleated RBC % 0 PT with INR Cancelled 13.30 H INR Cancelled 1.13 H PTT (Actin FS) 32.8 Sodium Potassium Chloride Carbon Dioxide Anion Gap BUN Creatinine Creat Clearance w eGFR Random Glucose Hemoglobin A1c % Uric Acid Calcium Total Bilirubin AST ALT Alkaline Phosphatase Creatine Kinase Troponin I B-Natriuretic Peptide Total Protein Albumin TSH Free T4 11/09/18 11/10/18 11/10/18 14:50 06:25 06:25 WBC RBC Hgb Hct MCV MCH MCHC RDW Plt Count MPV Absolute Neuts (auto) Neutrophils % Lymphocytes % Monocytes % Eosinophils % Basophils % Nucleated RBC % PT with INR INR PTT (Actin FS) Sodium 138 138 Potassium 4.9 4.5 Chloride 108 H 107 Carbon Dioxide 23 24 Anion Gap 7 L 7 L BUN 25 H 26 H Creatinine 1.7 H 1.8 H Creat Clearance w eGFR 38.78 36.30 Random Glucose 95 91 Hemoglobin A1c % 5.4 Uric Acid 4.8 Calcium 8.9 8.9 Total Bilirubin 0.8 AST 16 ALT 17 Alkaline Phosphatase 88 Creatine Kinase 40 36 Troponin I 0.15 H 0.15 H B-Natriuretic Peptide 48155.6 H Total Protein 6.6 Albumin 3.2 L TSH 1.81 D Free T4 0.75 L Assessment/Plan chf systolic acute s/p bio AVR #25 pericardial aortic valve and MV repair P2,P3 quadrangular resection [facility] dr. Prasad 2005 valve in valve TAVR 2-6-19 [facility] [employer] AICD BIvi-pacing 2015 Dr. 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 2014 CRI AF -refusing AC Plan cont lasix 40 IV f/u bun /cr coreg 3.125 bid aldacton 25 qd - monitor K
[2018-11-10] MEDS: PARoxetine HCL 10 MG TABLET PO SCH (12:33)
[2018-11-10] MEDS: CARVEDILOL 3.125 MG TABLET (FP) PO SCH ×2 (12:49→21:34)
--- NOTE | 2018-11-10 17:35 | HP ---
Admitting History and Physical - Primary Care Physician PCP: Hector Desai - Admission Chief Complaint: weakness History of Present Illness: 83yo M with PMH of diastolic CHF- class 3 (s/p AICD, CAD s/p multiple valve procedures, CKD- stage 2, hypothyroid, PAD) presenting with shortness of breath. he was sent to ER from his [employer]'s office where he was found to be hypotensive, weak, dyspneic. It was then discovered that he'd been taking 2 types of BB (Toprol & Coreg) since he was released from rehab facility a little over 1 week ago (where he was sent for Cardiac [place] [facility] he under went TAVR late last month). He was seen by me on 11/03/18 and felt fairly well. His SBP was about 115; his breathing was unlabored. However, he began to again feel weak approx 1 day [employer]. [facility]; his discharge medications showed that Toprol was started in place of Coreg, but he was taking both agents when he arrived home, and insisted that he was told to do by the discharging staff. He denied any CP; n-v, palpitations, dizziness, but does feel lightheaded when standing upright. 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 No: Aneurysm, Aortic Insufficiency, Aortic Stenosis, CAD, Deep Vein Thrombosis, [place], Mitral Insufficiency, Mitral Stenosis, Pulmonary Hypertension, Other Renal/: Yes: Renal Inusuff (CKD (stage 1)). No: Renal Failure, BPH, Cancer, Hematuria, Hemodialysis, Neurogenic Bladder, Renal Calculi, UTI, Other Heme/Onc: Yes: Other (MGUS) Psych: Yes: Anxiety, Other (affective dz) Musculoskeletal: Yes: Osteoarthritis Rheumatology: Yes: Gout. No: Fibromyalgia, Lupus, Rheumatoid Arthritis, Sarcoidosis, Vasculitis, Other Endocrine: Yes: Hypothyroidism, Other (Gluc intolerance) - Past Surgical History Past Surgical History: Yes: Permanent Pacemaker, Valve Replacement. No: None, AAA Repair, AICD, Amputation, Appendectomy, Arthrosocopy, AV Fistula/Graft, Bariatric Surgery, Breast Biopsy, Bypass, CABG, Carotid Endarterectomy, Cataract Removal, Cholecystectomy, Colectomy, Colonoscopy, Colostomy, Craniotomy , , Cystectomy, Hernia Repair, Hysterectomy, Ileal Conduit, Ileosotomy , Joint Replacement, Kidney Transplant, Laminectomy, Liver Transplant, Mastectomy, Nephrectomy, Oopherectomy, Orchiectomy, Prostatectomy, Splenectomy, Stent, Thoracotomy, TURP, Tonsillectomy, Tubal Ligation, Upper Endoscopy, Vasectomy, Vein Stripping/Ligation - Smoking History Smoking history: Never smoked Have you smoked in the past 12 months: No Aproximately how many cigarettes per day: 20 - Alcohol/Substance Use Hx Alcohol Use: No History of Substance Use: reports: None - Social History Usual Living Arrangement: Yes: Alone ADL: Independent 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 History of Recent Travel: Yes (went to [place] 1 week ago) Home Medications - Allergies Allergies/Adverse Reactions: Allergies Allergy/AdvReac Type Severity Reaction Status Date / Time lisinopril Allergy Intermediate Cough Verified 11/09/18 13:44 Penicillins Allergy Intermediate Rash Verified 11/09/18 13:44 pravastatin sodium Allergy Intermediate MUSCLE PAIN Verified 11/09/18 13:44 [From Pravachol] simvastatin [From Zocor] Allergy Intermediate MUSCLE PAIN Verified 11/09/18 13: 44 sertraline Allergy Unknown Verified 11/09/18 13:44 - Home Medications Home Medications: Ambulatory Orders Aspirin [ASA -] 81 mg PO DAILY 12/19/15 Clopidogrel Bisulfate [Plavix -] 75 mg PO DAILY 12/19/15 Levothyroxine [Synthroid -] 75 mcg PO DAILY 12/19/15 Paroxetine HCl [Paxil -] 20 mg PO DAILY 12/19/15 Rosuvastatin [Crestor -] 40 mg PO HS 12/19/15 Furosemide [Lasix -] 40 mg PO DAILY 06/30/16 Multivit-Min/Iron Fum/Folic AC [Ilzhb-Guvfkok-Csipkxkm Tablet] 1 each PO DAILY 11/09/18 Pantoprazole Sodium [Protonix -] 40 mg PO DAILY 11/09/18 Metoprolol Succinate [Toprol Xl] 12.5 mg DAILY 11/10/18 Family Disease History - Family Disease History Family Disease History: Diabetes: Mother, Heart Disease: Mother Review of Systems - Review of Systems Constitutional: reports: Lethargy, Weakness Eyes: reports: No Symptoms HENT: reports: No Symptoms Neck: reports: No Symptoms Cardiovascular: reports: Shortness of Breath Respiratory: reports: SOB on Exertion Gastrointestinal: reports: No Symptoms Genitourinary: reports: No Symptoms Musculoskeletal: reports: No Symptoms Integumentary: reports: No Symptoms Neurological: reports: Weakness Endocrine: reports: No Symptoms Hematology/Lymphatic: reports: No Symptoms Psychiatric: reports: No Symptoms Physical Examination Vital Signs: Vital Signs Temperature 98.4 F 11/10/18 14:15 Pulse Rate 76 11/10/18 14:15 Respiratory Rate 29 H 11/10/18 14:15 Blood Pressure 94/59 L 11/10/18 14:15 O2 Sat by Pulse Oximetry (%) 98 11/10/18 09:00 Findings/Remarks: skin--areas of ecchymosis head--NC eyes--anicteric oral--no mucosal lesions heart--distant RR lungs--grossly clear abd--benign ext--degen changes; no edema; pedal pulses faint bilat neuro--alert; lucid, coherent in NAD; no focal deficits appreciated CBCD WBC 6.2 K/mm3 (4.0-10.0) 11/09/18 14:45 RBC 4.06 M/mm3 (4.00-5.60) 11/09/18 14:45 Hgb 12.7 GM/dL (11.7-16.9) 11/09/18 14:45 Hct 38.7 % (35.4-49) 11/09/18 14:45 MCV 95.2 fl (80-96) 11/09/18 14:45 MCHC 32.8 g/dl (32.0-35.9) 11/09/18 14:45 RDW 16.9 % (11.9-15.9) H 11/09/18 14:45 Plt Count 135 K/MM3 (134-434) 11/09/18 14:45 MPV 8.8 fl (7.5-11.1) 11/09/18 14:45 CMP Sodium 138 mmol/L (136-145) 11/10/18 06:25 Potassium 4.5 mmol/L (3.5-5.1) 11/10/18 06:25 Chloride 107 mmol/L (98-107) 11/10/18 06:25 Carbon Dioxide 24 mmol/L (21-32) 11/10/18 06:25 Anion Gap 7 MMOL/L (8-16) L 11/10/18 06:25 BUN 26 mg/dL (7-18) H 11/10/18 06:25 Creatinine 1.8 mg/dL (0.55-1.3) H 11/10/18 06:25 Creat Clearance w eGFR 36.30 (>60) 11/10/18 06:25 Random Glucose 91 mg/dL (74-106) 11/10/18 06:25 Calcium 8.9 mg/dL (8.5-10.1) 11/10/18 06:25 Total Bilirubin 0.8 mg/dL (0.2-1) 11/09/18 14:50 AST 16 U/L (15-37) 11/09/18 14:50 ALT 17 U/L (13-61) 11/09/18 14:50 Alkaline Phosphatase 88 U/L (45-117) 11/09/18 14:50 Total Protein 6.6 g/dl (6.4-8.2) 11/09/18 14:50 Albumin 3.2 g/dl (3.4-5.0) L 11/09/18 14:50 CARDIAC ENZYMES Creatine Kinase 36 U/L (26-308) 11/10/18 06:25 Troponin I 0.15 ng/ml (0.00-0.05) H 11/10/18 06:25 Labs: CBC, BMP 11/09/18 14:45 11/10/18 06:25 Imaging - Results Chest X-ray: Report Reviewed Ultrasound: Report Reviewed EKG: Report Reviewed Other: Report Reviewed (echo) Problem List - Problems (1) Acute exacerbation of CHF (congestive heart failure) Assessment/Plan: displayed Sx of decomp CHF; perhaps 2nd multiple factors (taking dual BB--> low BP; resulting in lowering the dose of his diuretic, which was lowered to begin with). PLAN: BP permitting, to give IV diuresis until his renal function baseline is reached. Cont low dose BB and antiPLT drugs Code(s): I50.9 - HEART FAILURE, UNSPECIFIED Qualifiers: Heart failure type: combined systolic and diastolic Qualified Code(s): I50.43 - Acute on chronic combined systolic (congestive) and diastolic ( congestive) heart failure (2) AICD (automatic cardioverter/defibrillator) present Assessment/Plan: not new; has not deployed; the ICD/pacer was interrogated at the time of his Cardio visit. Code(s): Z95.810 - PRESENCE OF AUTOMATIC (IMPLANTABLE) CARDIAC DEFIBRILLATOR (3) Aortic valve replaced Assessment/Plan: [facility] [place] [facility] [facility] where he'd been in ICU for AV failure/dysf resulting in hypoperfusion of his kidneys and liver in a hypotensive state; all of which reversed once valve was replaced Code(s): Z95.2 - PRESENCE OF PROSTHETIC HEART VALVE (4) Chronic renal insufficiency Assessment/Plan: Current Bun/Cr is BELOW his baseline; suggesting volume excess PLAN: diuresis and monitor daily chems Code(s): N18.9 - CHRONIC KIDNEY DISEASE, UNSPECIFIED Qualifiers: Chronic kidney disease stage: stage 3 (moderate) Qualified Code(s): N18.3 - Chronic kidney disease, stage 3 (moderate) (5) Elevated troponin Assessment/Plan: not new; felt to be due to chronic CHF Code(s): R74.8 - ABNORMAL LEVELS OF OTHER SERUM ENZYMES (6) Arteriosclerotic heart disease (ASHD) Assessment/Plan: with stable PAD; PLAN: cont Plavix; asa Code(s): I25.10 - ATHSCL HEART DISEASE OF [place] CORONARY ARTERY W/O ANG PCTRS (7) Carotid occlusion, left Assessment/Plan: not new; has periodic carotid scanning Code(s): I65.22 - OCCLUSION AND STENOSIS OF LEFT CAROTID ARTERY (8) Anxiety and depression Assessment/Plan: chronic dz; for which he takes SSRI Code(s): F41.9 - ANXIETY DISORDER, UNSPECIFIED; F32.9 - MAJOR DEPRESSIVE DISORDER, SINGLE EPISODE, UNSPECIFIED (9) Hypothyroid Assessment/Plan: cont hormone supplement Code(s): E03.9 - HYPOTHYROIDISM, UNSPECIFIED Qualifiers: Hypothyroidism type: acquired Qualified Code(s): E03.9 - Hypothyroidism, unspecified (10) PAD (peripheral artery disease) Assessment/Plan: clinically stable Code(s): I73.9 - PERIPHERAL VASCULAR DISEASE, UNSPECIFIED (11) Hypotension Assessment/Plan: may be exacerbated by the inadvertent taking of 2 BB agents; but BP chroncally low due to impaired Ej FX Code(s): I95.9 - HYPOTENSION, UNSPECIFIED Qualifiers: Hypotension type: other hypotension type Qualified Code(s): I95.89 - Other hypotension (12) Elderly person living alone Assessment/Plan: condition may be made because no accomodations can be made in place of residence ; though he had VNS in place [employer] Code(s): Z60.2 - PROBLEMS RELATED TO LIVING ALONE Assessment/Plan 83yo M with PMH of diastolic CHF- whose tenuous condition has resulted in multiple hospitalizations within a relatively short time, now hemodynamically unstable. ~~~~~~~~~~~~~~~~~~~~~~~~~~~~~~~~~ Dr Desai
[2018-11-10] MEDS: DOCUSATE SODIUM 100 MG CAPSULE (FP) PO SCH (21:35)
[2018-11-11] MEDS: LEVOTHYROXINE NA 50 MCG TABLET (FP) PO SCH (06:08)
[2018-11-11 07:51] LABS: ANION GAP 9 MMOL/L (8-16); BLOOD UREA NITROGEN 27 mg/dL (7-18); CALCIUM 8.3 mg/dL (8.5-10.1); CHLORIDE 107 mmol/L (98-107); CO2 24 mmol/L (21-32); CREATININE 1.7 mg/dL (0.55-1.3); GLUCOSE,RANDOM 83 mg/dL (74-106); POTASSIUM 3.7 mmol/L (3.5-5.1); SODIUM 140 mmol/L (136-145)
[2018-11-11] MEDS: CLOPIDOGREL BISULFATE 75 MG TABLET (FP) PO SCH (10:02)
[2018-11-11] MEDS: FUROSEMIDE 40 MG/4 ML INJECTABLE VIAL IVPUSH SCH (10:02)
[2018-11-11] MEDS: ASPIRIN COATED 81 MG TABLET.EC PO SCH (10:02)
[2018-11-11] MEDS: CARVEDILOL 3.125 MG TABLET (FP) PO SCH ×2 (10:02→21:15)
[2018-11-11] MEDS: PARoxetine HCL 10 MG TABLET PO SCH (10:02)
[2018-11-11] MEDS: SPIRONOLACTONE 25 MG TABLET (FP) PO SCH (10:03)
--- NOTE | 2018-11-11 10:04 | PN ---
Progress Note, Physician Chief Complaint: Seen and examined in coverage for Dr. Kidd TELE: underlying AF, paced. History of Present Illness: Denies CP, SOB or palpitations. - Current Medication List Current Medications: Active Medications Aspirin (Ecotrin -) 81 mg PO DAILY [facility] Last Admin: 11/11/18 10:02 Dose: 81 mg Carvedilol (Coreg -) 3.125 mg PO BID [facility] Last Admin: 11/11/18 10:02 Dose: Not Given Clopidogrel Bisulfate (Plavix -) 75 mg PO DAILY [facility] Last Admin: 11/11/18 10:02 Dose: 75 mg Docusate Sodium (Colace -) 100 mg PO HS [facility] Last Admin: 11/10/18 21:35 Dose: 100 mg Furosemide (Lasix Injection -) 40 mg IVPUSH DAILY [facility] Last Admin: 11/11/18 10:02 Dose: 40 mg Levothyroxine Sodium (Synthroid -) 50 mcg PO DAILY@0700 [facility] Last Admin: 11/11/18 06:08 Dose: 50 mcg Paroxetine HCl (Paxil -) 10 mg PO DAILY [facility] Last Admin: 11/11/18 10:02 Dose: 10 mg Spironolactone (Aldactone -) 25 mg PO DAILY [facility] Last Admin: 11/10/18 09:46 Dose: 25 mg - Objective Vital Signs: Vital Signs Temperature 97.8 F 11/11/18 09:00 Pulse Rate 77 11/11/18 09:00 Respiratory Rate 18 11/11/18 09:00 Blood Pressure 98/69 11/11/18 09:00 O2 Sat by Pulse Oximetry (%) 98 11/11/18 09:00 Constitutional: Yes: No Distress, Calm Eyes: Yes: Conjunctiva Clear Cardiovascular: Yes: Regular Rate and Rhythm Respiratory: Yes: CTA Bilaterally (no rales today) Gastrointestinal: Yes: Soft Edema: No (warm) Neurological: Yes: Alert, Oriented Labs: CBC, BMP 11/09/18 14:45 11/11/18 06:35 INR, PTT INR 1.13 (0.83-1.09) H 11/09/18 14:50 Laboratory Tests 11/09/18 11/10/18 11/11/18 14:50 06:25 06:35 Sodium 140 Potassium 3.7 BUN 27 H Creatinine 1.7 H Creatine Kinase 40 36 30 Troponin I 0.15 H 0.15 H 0.14 H - ....Imaging EKG: Image Reviewed Assessment/Plan IMP: Acute on chronic systolic CHF History of bio AVR #25 pericardial aortic valve and MV repair 2004 History of valve in valve TAVR (10-04-18 [facility]) [employer] AICD BiV device PAD left ICA occlusion History of TIA History of CKG Permanent AF -refusing AC REC: 1. To continue antiplatelet therapy for AF, in place of full AC which he has previously refused. 2. Continue Carvedilol and Spironolactone as part of optimal medical therapy regimen for CHF, NYHA class III/IV. RADHA/ARB and Entresto have been held secondary to hypotension and CKD with creat of 1.7. 3. Continue IV Lasix as he has had modest clinical improvement and creatinine remains stable. 4. Daily weights and BMP to follow electrolytes and renal fxn. Coverage for Dr. Kidd
--- NOTE | 2018-11-11 10:59 | PN ---
Progress Note (short form) - Note Progress Note: medical Current Medications Aspirin (Ecotrin -) 81 mg PO DAILY [facility] Last Admin: 11/11/18 10:02 Dose: 81 mg Carvedilol (Coreg -) 3.125 mg PO BID [facility] Last Admin: 11/11/18 10:02 Dose: Not Given Clopidogrel Bisulfate (Plavix -) 75 mg PO DAILY [facility] Last Admin: 11/11/18 10:02 Dose: 75 mg Docusate Sodium (Colace -) 100 mg PO HS [facility] Last Admin: 11/10/18 21:35 Dose: 100 mg Furosemide (Lasix Injection -) 40 mg IVPUSH DAILY [facility] Last Admin: 11/11/18 10:02 Dose: 40 mg Levothyroxine Sodium (Synthroid -) 50 mcg PO DAILY@0700 [facility] Last Admin: 11/11/18 06:08 Dose: 50 mcg Paroxetine HCl (Paxil -) 10 mg PO DAILY [facility] Last Admin: 11/11/18 10:02 Dose: 10 mg Spironolactone (Aldactone -) 25 mg PO DAILY [facility] Last Admin: 11/11/18 10:03 Dose: 25 mg Laboratory Results - last 24 hr 11/11/18 06:35 Sodium 140 Potassium 3.7 Chloride 107 Carbon Dioxide 24 Anion Gap 9 BUN 27 H Creatinine 1.7 H Creat Clearance w eGFR 38.78 Random Glucose 83 Calcium 8.3 L Creatine Kinase 30 Troponin I 0.14 H Vital Signs Temperature 97.8 F 11/11/18 09:00 Pulse Rate 77 11/11/18 09:00 Respiratory Rate 18 11/11/18 09:00 Blood Pressure 98/69 11/11/18 09:00 O2 Sat by Pulse Oximetry (%) 98 11/11/18 09:00 CC: feeling "better" (less dizzy; SOB, etc); urinating freely ````````````````````````````````` skin--good color heart--irreg lungs--clear but distant abd--soft, NT ext--no edema appreciated neuro--alert; coherent; moves all Ext normally; speech clear `````````````````````````````````````` Summ > Decomp CHF--in the manner stated; now receiving (and responding to) IV diuresis; BB w/o destabilizing his BP, and subjectively feels better. PLAN: cont present regimen until his Bun/cr rises to baseline (40-2.5); then cut back or switch to PO; check Chems daily & Trops > CRI--has been stable over time; now on IV lasix & aldactone PLAn: watch chems daily > ATF--paroxysmal? [facility]; he'd refused to go on a-c , and still does > high Trop--stable; likely 2nd chronic LVdysf (see echo) > Lt Carotid occlusion--chronic; will check Rt carotid duplex ~~~~~~~~~~~~~~~~~~~ Dr Desai Problem List - Problems (1) Acute exacerbation of CHF (congestive heart failure) Code(s): I50.9 - HEART FAILURE, UNSPECIFIED Qualifiers: Heart failure type: combined systolic and diastolic Qualified Code(s): I50.43 - Acute on chronic combined systolic (congestive) and diastolic ( congestive) heart failure (2) AICD (automatic cardioverter/defibrillator) present Code(s): Z95.810 - PRESENCE OF AUTOMATIC (IMPLANTABLE) CARDIAC DEFIBRILLATOR (3) Aortic valve replaced Code(s): Z95.2 - PRESENCE OF PROSTHETIC HEART VALVE (4) Chronic renal insufficiency Code(s): N18.9 - CHRONIC KIDNEY DISEASE, UNSPECIFIED Qualifiers: Chronic kidney disease stage: stage 3 (moderate) Qualified Code(s): N18.3 - Chronic kidney disease, stage 3 (moderate) (5) Elevated troponin Code(s): R74.8 - ABNORMAL LEVELS OF OTHER SERUM ENZYMES (6) Arteriosclerotic heart disease (ASHD) Code(s): I25.10 - ATHSCL HEART DISEASE OF [place] CORONARY ARTERY W/O ANG PCTRS (7) Carotid occlusion, left Code(s): I65.22 - OCCLUSION AND STENOSIS OF LEFT CAROTID ARTERY (8) Anxiety and depression Code(s): F41.9 - ANXIETY DISORDER, UNSPECIFIED; F32.9 - MAJOR DEPRESSIVE DISORDER, SINGLE EPISODE, UNSPECIFIED (9) Hypothyroid Code(s): E03.9 - HYPOTHYROIDISM, UNSPECIFIED Qualifiers: Hypothyroidism type: acquired Qualified Code(s): E03.9 - Hypothyroidism, unspecified (10) PAD (peripheral artery disease) Code(s): I73.9 - PERIPHERAL VASCULAR DISEASE, UNSPECIFIED (11) Hypotension Code(s): I95.9 - HYPOTENSION, UNSPECIFIED Qualifiers: Hypotension type: other hypotension type Qualified Code(s): I95.89 - Other hypotension (12) Elderly person living alone Code(s): Z60.2 - PROBLEMS RELATED TO LIVING ALONE
[2018-11-11] MEDS: DOCUSATE SODIUM 100 MG CAPSULE (FP) PO SCH (21:15)
[2018-11-12] MEDS: LEVOTHYROXINE NA 50 MCG TABLET (FP) PO SCH (06:09)
[2018-11-12 07:36] LABS: ANION GAP 9 MMOL/L (8-16); BLOOD UREA NITROGEN 30 mg/dL (7-18); CALCIUM 8.6 mg/dL (8.5-10.1); CHLORIDE 106 mmol/L (98-107); CHOLESTEROL 129 mg/dL (50-200); CO2 25 mmol/L (21-32); CREATININE 1.7 mg/dL (0.55-1.3); GLUCOSE,RANDOM 83 mg/dL (74-106); HDL CHOLESTEROL 33 mg/dL (40-60); MAGNESIUM 1.6 mg/dL (1.8-2.4); POTASSIUM 3.6 mmol/L (3.5-5.1); SODIUM 140 mmol/L (136-145); TRIGLYCERIDES 98 mg/dL (0-150)
--- NOTE | 2018-11-12 10:13 | PN ---
Progress Note, Physician Chief Complaint: sitting comfortably without distress Weight is down Feels slightly improved. TELE: Paced. History of Present Illness: BP has remained stable. - Current Medication List Current Medications: Active Medications Aspirin (Ecotrin -) 81 mg PO DAILY [facility] Last Admin: 11/11/18 10:02 Dose: 81 mg Carvedilol (Coreg -) 3.125 mg PO BID [facility] Last Admin: 11/11/18 21:15 Dose: 3.125 mg Clopidogrel Bisulfate (Plavix -) 75 mg PO DAILY [facility] Last Admin: 11/11/18 10:02 Dose: 75 mg Docusate Sodium (Colace -) 100 mg PO HS [facility] Last Admin: 11/11/18 21:15 Dose: 100 mg Furosemide (Lasix Injection -) 40 mg IVPUSH DAILY [facility] Last Admin: 11/11/18 10:02 Dose: 40 mg Levothyroxine Sodium (Synthroid -) 50 mcg PO DAILY@0700 [facility] Last Admin: 11/12/18 06:09 Dose: 50 mcg Paroxetine HCl (Paxil -) 10 mg PO DAILY [facility] Last Admin: 11/11/18 10:02 Dose: 10 mg Spironolactone (Aldactone -) 25 mg PO DAILY [facility] Last Admin: 11/11/18 10:03 Dose: 25 mg - Objective Vital Signs: Vital Signs Temperature 98 F 11/12/18 08:33 Pulse Rate 80 11/12/18 08:33 Respiratory Rate 20 11/12/18 08:33 Blood Pressure 110/58 L 11/12/18 08:33 O2 Sat by Pulse Oximetry (%) 98 11/11/18 20:38 Constitutional: Yes: No Distress, Calm Cardiovascular: Yes: Regular Rate and Rhythm Respiratory: Yes: CTA Bilaterally (no rales.) Gastrointestinal: Yes: Soft Edema: No Neurological: Yes: Alert, Oriented Labs: CBC, BMP 11/09/18 14:45 11/12/18 05:30 INR, PTT INR 1.13 (0.83-1.09) H 11/09/18 14:50 Selected Entries 11/09/18 11/12/18 20:40 06:00 Weight 183 lb 6.4 oz 177 lb 12.8 oz Laboratory Tests 11/11/18 11/12/18 06:35 05:30 Sodium 140 Potassium 3.6 BUN 30 H Creatinine 1.7 H Creatine Kinase 30 28 Troponin I 0.14 H 0.13 H Assessment/Plan IMP: Acute on chronic systolic CHF History of bio AVR #25 pericardial aortic valve and MV repair 2004 History of valve in valve TAVR (10-04-18 [facility]) [employer] AICD BiV device PAD left ICA occlusion History of TIA History of CKG Permanent AF -refusing AC REC: 1. To continue antiplatelet therapy for AF, in place of full AC which he has previously refused. 2. Continue Carvedilol and Spironolactone as part of optimal medical therapy regimen for CHF, NYHA class III/IV. RADHA/ARB and Entresto have been held secondary to hypotension and CKD with creat of 1.7. 3. Continue IV Lasix as he has had modest clinical improvement and creatinine remains stable. Look to transition to PO tomorrow. 4. Daily weights and BMP to follow electrolytes and renal fxn. Coverage for Dr. Kidd
[2018-11-12] MEDS: SPIRONOLACTONE 25 MG TABLET (FP) PO SCH (10:17)
[2018-11-12] MEDS: CARVEDILOL 3.125 MG TABLET (FP) PO SCH ×2 (10:17→21:25)
[2018-11-12] MEDS: ASPIRIN COATED 81 MG TABLET.EC PO SCH (10:18)
[2018-11-12] MEDS: PARoxetine HCL 10 MG TABLET PO SCH (10:18)
[2018-11-12] MEDS: CLOPIDOGREL BISULFATE 75 MG TABLET (FP) PO SCH (10:18)
[2018-11-12] MEDS: FUROSEMIDE 40 MG/4 ML INJECTABLE VIAL IVPUSH SCH (10:18)
[2018-11-12] MEDS ORDERED: MAGNESIUM SULF 50% (8.12 MEQ/2 ML-1 GM VIAL) IVPB ONE (13:30)
--- NOTE | 2018-11-12 16:42 | PN ---
Progress Note (short form) - Note Progress Note: ++++++++++++++++++++++++++ Medical ++++++++++++++++++++++++ Current Medications Aspirin (Ecotrin -) 81 mg PO DAILY [facility] Last Admin: 11/12/18 10:18 Dose: 81 mg Carvedilol (Coreg -) 3.125 mg PO BID [facility] Last Admin: 11/12/18 10:17 Dose: 3.125 mg Clopidogrel Bisulfate (Plavix -) 75 mg PO DAILY [facility] Last Admin: 11/12/18 10:18 Dose: 75 mg Docusate Sodium (Colace -) 100 mg PO HS [facility] Last Admin: 11/11/18 21:15 Dose: 100 mg Furosemide (Lasix -) 20 mg PO DAILY [facility] Levothyroxine Sodium (Synthroid -) 50 mcg PO DAILY@0700 [facility] Last Admin: 11/12/18 06:09 Dose: 50 mcg Paroxetine HCl (Paxil -) 10 mg PO DAILY [facility] Last Admin: 11/12/18 10:18 Dose: 10 mg Spironolactone (Aldactone -) 25 mg PO DAILY [facility] Last Admin: 11/12/18 10:17 Dose: 25 mg Laboratory Results - last 24 hr 11/12/18 05:30 Sodium 140 Potassium 3.6 Chloride 106 Carbon Dioxide 25 Anion Gap 9 BUN 30 H Creatinine 1.7 H Creat Clearance w eGFR 38.78 Random Glucose 83 Calcium 8.6 Magnesium 1.6 L Creatine Kinase 28 Troponin I 0.13 H Triglycerides 98 Cholesterol 129 Total LDL Cholesterol 83 HDL Cholesterol 33 L Vital Signs Temperature 98.5 F 11/12/18 14:00 Pulse Rate 77 11/12/18 14:00 Respiratory Rate 20 11/12/18 14:00 Blood Pressure 90/64 11/12/18 14:00 O2 Sat by Pulse Oximetry (%) 98 11/12/18 09:00 CC: Rt upper arm discomfort; comes & goes based on position ````````````````````````````````` skin--good color; difuse sub cut soft nodes on abd and arms heart--irreg lungs--clear but distant abd--soft ext--no edema appreciated neuro--alert; coherent; moves all Ext normally; speech clear `````````````````````````````````````` Summ > Decomp CHF--improved overall; on IV lasix, but will stop because rising Bun and declining SBP. Has lost approx 5Lbs since admission. PLAN: cont present regimen but switch to PO lasix; cont BB aldactone; check Chems daily & Trops > CRI--has been stable over time; now BUN trending upwards; check daily > ATF--paroxysmal? noted while in [facility] [place]; he'd refused to go on a-c , and still does > high Trop--stable & chronically high; likely 2nd chronic LVdysf (see echo) > Lt Carotid occlusion--chronic; SIDNEY & vertebrals okay; Lipids in good range; cont antiPlt meds > Low mag--2nd IV lasix; will replenish as needed > Subcut skin nodules--longstanding & stable; likely lipomatous lesions ~~~~~~~~~~~~~~~~~~~ Dr Desai Problem List - Problems (1) Acute exacerbation of CHF (congestive heart failure) Code(s): I50.9 - HEART FAILURE, UNSPECIFIED Qualifiers: Heart failure type: combined systolic and diastolic Qualified Code(s): I50.43 - Acute on chronic combined systolic (congestive) and diastolic ( congestive) heart failure (2) AICD (automatic cardioverter/defibrillator) present Code(s): Z95.810 - PRESENCE OF AUTOMATIC (IMPLANTABLE) CARDIAC DEFIBRILLATOR (3) Aortic valve replaced Code(s): Z95.2 - PRESENCE OF PROSTHETIC HEART VALVE (4) Chronic renal insufficiency Code(s): N18.9 - CHRONIC KIDNEY DISEASE, UNSPECIFIED Qualifiers: Chronic kidney disease stage: stage 3 (moderate) Qualified Code(s): N18.3 - Chronic kidney disease, stage 3 (moderate) (5) Elevated troponin Code(s): R74.8 - ABNORMAL LEVELS OF OTHER SERUM ENZYMES (6) Arteriosclerotic heart disease (ASHD) Code(s): I25.10 - ATHSCL HEART DISEASE OF [place] CORONARY ARTERY W/O ANG PCTRS (7) Carotid occlusion, left Code(s): I65.22 - OCCLUSION AND STENOSIS OF LEFT CAROTID ARTERY (8) Anxiety and depression Code(s): F41.9 - ANXIETY DISORDER, UNSPECIFIED; F32.9 - MAJOR DEPRESSIVE DISORDER, SINGLE EPISODE, UNSPECIFIED (9) Hypothyroid Code(s): E03.9 - HYPOTHYROIDISM, UNSPECIFIED Qualifiers: Hypothyroidism type: acquired Qualified Code(s): E03.9 - Hypothyroidism, unspecified (10) PAD (peripheral artery disease) Code(s): I73.9 - PERIPHERAL VASCULAR DISEASE, UNSPECIFIED (11) Hypotension Code(s): I95.9 - HYPOTENSION, UNSPECIFIED Qualifiers: Hypotension type: other hypotension type Qualified Code(s): I95.89 - Other hypotension (12) Elderly person living alone Code(s): Z60.2 - PROBLEMS RELATED TO LIVING ALONE
[2018-11-12] MEDS: DOCUSATE SODIUM 100 MG CAPSULE (FP) PO SCH (21:23)
[2018-11-13] MEDS: LEVOTHYROXINE NA 50 MCG TABLET (FP) PO SCH (06:18)
[2018-11-13 07:54] LABS: ANION GAP 9 MMOL/L (8-16); BLOOD UREA NITROGEN 32 mg/dL (7-18); CALCIUM 8.4 mg/dL (8.5-10.1); CHLORIDE 106 mmol/L (98-107); CO2 25 mmol/L (21-32); CREATININE 1.8 mg/dL (0.55-1.3); GLUCOSE,RANDOM 86 mg/dL (74-106); MAGNESIUM 1.8 mg/dL (1.8-2.4); SODIUM 139 mmol/L (136-145)
[2018-11-13] MEDS: FUROSEMIDE 20 MG TABLET (FP) PO SCH (09:46)
[2018-11-13] MEDS: CARVEDILOL 3.125 MG TABLET (FP) PO SCH ×2 (09:46→21:41)
[2018-11-13] MEDS: ASPIRIN COATED 81 MG TABLET.EC PO SCH (09:46)
[2018-11-13] MEDS: SPIRONOLACTONE 25 MG TABLET (FP) PO SCH (09:46)
[2018-11-13] MEDS: CLOPIDOGREL BISULFATE 75 MG TABLET (FP) PO SCH (09:46)
[2018-11-13] MEDS: PARoxetine HCL 10 MG TABLET PO SCH (09:49)
--- NOTE | 2018-11-13 12:24 | PN ---
Progress Note, Physician History of Present Illness: PMH s/p bio AVR #25 pericardial aortic valve and MV repair P2,P3 quadrangular resection [facility] dr. Prasad 2005 valve in valve TAVR 10-04-18 [facility] Ongoing medical problems [employer] AICD BIvi-pacing 2015 Dr. 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 2014 - Current Medication List Current Medications: Active Medications Aspirin (Ecotrin -) 81 mg PO DAILY [facility] Last Admin: 11/13/18 09:46 Dose: 81 mg Carvedilol (Coreg -) 3.125 mg PO BID [facility] Last Admin: 11/13/18 09:46 Dose: 3.125 mg Clopidogrel Bisulfate (Plavix -) 75 mg PO DAILY [facility] Last Admin: 11/13/18 09:46 Dose: 75 mg Docusate Sodium (Colace -) 100 mg PO HS [facility] Last Admin: 11/12/18 21:23 Dose: 100 mg Furosemide (Lasix -) 20 mg PO DAILY [facility] Last Admin: 11/13/18 09:46 Dose: 20 mg Levothyroxine Sodium (Synthroid -) 50 mcg PO DAILY@0700 [facility] Last Admin: 11/13/18 06:18 Dose: 50 mcg Paroxetine HCl (Paxil -) 10 mg PO DAILY [facility] Last Admin: 11/13/18 09:49 Dose: 10 mg Spironolactone (Aldactone -) 25 mg PO DAILY [facility] Last Admin: 11/13/18 09:46 Dose: 25 mg - Objective Vital Signs: Vital Signs Temperature 98.1 F 11/13/18 09:11 Pulse Rate 76 11/13/18 09:11 Respiratory Rate 18 11/13/18 09:11 Blood Pressure 100/71 11/13/18 09:11 O2 Sat by Pulse Oximetry (%) 96 11/13/18 09:11 Eyes: Yes: WNL, Conjunctiva Clear, EOM Intact HENT: Yes: WNL, Atraumatic, Normocephalic Neck: Yes: WNL, Supple, Trachea Midline Cardiovascular: Yes: WNL, Regular Rate and Rhythm Respiratory: Yes: WNL, Regular, CTA Bilaterally Gastrointestinal: Yes: WNL, Normal Bowel Sounds Genitourinary: Yes: WNL Musculoskeletal: Yes: WNL Extremities: Yes: WNL Edema: No Integumentary: Yes: WNL Neurological: Yes: WNL, Alert, Oriented ...Motor Strength: WNL Psychiatric: Yes: WNL Labs: CBC, BMP 11/09/18 14:45 11/13/18 06:00 INR, PTT INR 1.13 (0.83-1.09) H 11/09/18 14:50 Assessment/Plan chf systolic acute s/p bio AVR #25 pericardial aortic valve and MV repair P2,P3 quadrangular resection [facility] dr. Prasad 2005 valve in valve TAVR 10-04-18 [facility] [employer] AICD BIvi-pacing 2015 Dr. 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 2014 CRI AF -refusing AC no ARBS RADHA Entresto due to angioedema Plan cont lasix PO f/u bun /cr increase coreg to 6.25 bid cont aldacton 25 qd - monitor K
--- NOTE | 2018-11-13 15:54 | PN ---
Progress Note (short form) - Note Progress Note: medical Current Medications Aspirin (Ecotrin -) 81 mg PO DAILY [facility] Last Admin: 11/13/18 09:46 Dose: 81 mg Carvedilol (Coreg -) 6.25 mg PO BID [facility] Clopidogrel Bisulfate (Plavix -) 75 mg PO DAILY [facility] Last Admin: 11/13/18 09:46 Dose: 75 mg Docusate Sodium (Colace -) 100 mg PO HS [facility] Last Admin: 11/12/18 21:23 Dose: 100 mg Furosemide (Lasix -) 20 mg PO DAILY [facility] Last Admin: 11/13/18 09:46 Dose: 20 mg Levothyroxine Sodium (Synthroid -) 50 mcg PO DAILY@0700 [facility] Last Admin: 11/13/18 06:18 Dose: 50 mcg Paroxetine HCl (Paxil -) 10 mg PO DAILY [facility] Last Admin: 11/13/18 09:49 Dose: 10 mg Spironolactone (Aldactone -) 25 mg PO DAILY [facility] Last Admin: 11/13/18 09:46 Dose: 25 mg Laboratory Results - last 24 hr 11/13/18 06:00 Sodium 139 Potassium 4.0 Chloride 106 Carbon Dioxide 25 Anion Gap 9 BUN 32 H Creatinine 1.8 H Creat Clearance w eGFR 36.30 Random Glucose 86 Calcium 8.4 L Magnesium 1.8 Creatine Kinase 28 Troponin I 0.26 H Vital Signs Period Temp Pulse Resp BP Sys/Ramirez Pulse Ox Last 24 Hr 97.3 F-98.2 F 74-78 18-18 90-106/50-71 96-96 CC: Rt upper arm discomfort; comes & goes based on position ````````````````````````````````` skin--good color; IV site NL heart--irreg lungs--clear but distant abd--soft ext--no edema appreciated neuro--alert; coherent; moves all Ext normally; speech clear `````````````````````````````````````` Summ > Decomp CHF--improved overall; but still prone to low BP and becomes symptomatic; BP dropped this Am and could NOT be ambulated; dose of BB increased to 6.25 BID but doubtful that he can handle this dose BP-cunningham. PLAN: cont PO lasix/aldactone; check Chems daily & Trops > CRI--has been stable over time; now BUN trending upwards; off IV lasix > ATF--paroxysmal? noted while in [facility] post procedure; he'd refused to go on a-c , and still does > high Trop--chronically high; likely 2nd chronic LVdysf (see echo); higher today (2nd rising Bun/cr) > Lt Carotid occlusion--chronic; SIDNEY & vertebrals okay; Lipids in good range; cont antiPlt meds > Low mag--will replenish as needed > Subcut skin nodules--longstanding & stable; likely lipomatous lesions ~~~~~~~~~~~~~~~~~~~ Dr Desai Problem List - Problems (1) Acute exacerbation of CHF (congestive heart failure) Code(s): I50.9 - HEART FAILURE, UNSPECIFIED Qualifiers: Heart failure type: combined systolic and diastolic Qualified Code(s): I50.43 - Acute on chronic combined systolic (congestive) and diastolic ( congestive) heart failure (2) AICD (automatic cardioverter/defibrillator) present Code(s): Z95.810 - PRESENCE OF AUTOMATIC (IMPLANTABLE) CARDIAC DEFIBRILLATOR (3) Aortic valve replaced Code(s): Z95.2 - PRESENCE OF PROSTHETIC HEART VALVE (4) Chronic renal insufficiency Code(s): N18.9 - CHRONIC KIDNEY DISEASE, UNSPECIFIED Qualifiers: Chronic kidney disease stage: stage 3 (moderate) Qualified Code(s): N18.3 - Chronic kidney disease, stage 3 (moderate) (5) Elevated troponin Code(s): R74.8 - ABNORMAL LEVELS OF OTHER SERUM ENZYMES (6) Arteriosclerotic heart disease (ASHD) Code(s): I25.10 - ATHSCL HEART DISEASE OF [place] CORONARY ARTERY W/O ANG PCTRS (7) Carotid occlusion, left Code(s): I65.22 - OCCLUSION AND STENOSIS OF LEFT CAROTID ARTERY (8) Anxiety and depression Code(s): F41.9 - ANXIETY DISORDER, UNSPECIFIED; F32.9 - MAJOR DEPRESSIVE DISORDER, SINGLE EPISODE, UNSPECIFIED (9) Hypothyroid Code(s): E03.9 - HYPOTHYROIDISM, UNSPECIFIED Qualifiers: Hypothyroidism type: acquired Qualified Code(s): E03.9 - Hypothyroidism, unspecified (10) PAD (peripheral artery disease) Code(s): I73.9 - PERIPHERAL VASCULAR DISEASE, UNSPECIFIED (11) Hypotension Code(s): I95.9 - HYPOTENSION, UNSPECIFIED Qualifiers: Hypotension type: other hypotension type Qualified Code(s): I95.89 - Other hypotension (12) Elderly person living alone Code(s): Z60.2 - PROBLEMS RELATED TO LIVING ALONE
[2018-11-13] MEDS: DOCUSATE SODIUM 100 MG CAPSULE (FP) PO SCH (21:37)
[2018-11-13] MEDS ORDERED: CARVEDILOL 6.25 MG TABLET (FP) PO SCH ×2 (22:00)
--- NOTE | 2018-11-14 02:09 | FALL ---
Fall Exam - Event Witnessed fall: No Location of Fall: Patient Room Fall from: While ambulating - Pre-Fall Mental Status: Alert Current Medications: Current Medications Generic Name Dose Route Start Last Admin Trade Name [place] PRN Reason Stop Dose Admin Aspirin 81 mg 11/10/18 10:00 11/13/18 09:46 Ecotrin - PO 81 mg DAILY ANTOINE Administration Carvedilol 3.125 mg 11/13/18 22:00 11/13/18 21:41 Coreg - PO 3.125 mg BID ANTOINE Administration Docusate Sodium 100 mg 11/09/18 22:00 11/13/18 21:37 Colace - PO 100 mg HS ANTOINE Administration Furosemide 20 mg 11/13/18 10:00 11/13/18 09:46 Lasix - PO 20 mg DAILY ANTOINE Administration Levothyroxine Sodium 50 mcg 11/10/18 07:00 11/13/18 06:18 Synthroid - PO 50 mcg DAILY@0700 ANTOINE Administration Paroxetine HCl 10 mg 11/10/18 10:00 11/13/18 09:49 Paxil - PO 10 mg DAILY ANTOINE Administration Spironolactone 25 mg 11/10/18 10:00 11/13/18 09:46 Aldactone - PO 25 mg DAILY ANTOINE Administration - Post-Fall Patient Outcome: Pain Only (gluteal) Exam Findings: AAOx3, Head: Atraumatic, Normocephalic. Neck: FROM non-tender, Lungs: CTAB, Heart: RRR, S1, S2. LSP: non-tender. Extremities: FROM, non-tender , no shortening, no internal rotation, Abdomen: Soft, BS present, non-tender, Gluteal- no brusing, non-tender. Pelvis/Hips:FROM, Non-tender Treatment: None (Head CT- neg for ICH, mass or lesion) Vital Signs: Vital Signs Temperature 98.3 F 11/14/18 01:50 Pulse Rate 77 11/14/18 01:50 Respiratory Rate 18 11/14/18 01:50 Blood Pressure 92/60 11/14/18 01:50 O2 Sat by Pulse Oximetry (%) 96 11/13/18 22:00 LOC Post-Fall: Unchanged Identify factors for HIGH RISK for Head Injury: Pt on anticoagulant
[2018-11-14] MEDS: LEVOTHYROXINE NA 50 MCG TABLET (FP) PO SCH (06:40)
[2018-11-14 07:38] LABS: BLOOD UREA NITROGEN 31 mg/dL (7-18); CHLORIDE 106 mmol/L (98-107); CO2 26 mmol/L (21-32); CREATININE 1.7 mg/dL (0.55-1.3); GLUCOSE,RANDOM 82 mg/dL (74-106); POTASSIUM 4.5 mmol/L (3.5-5.1); SODIUM 139 mmol/L (136-145)
[2018-11-14 07:39] LABS: ANION GAP 8 MMOL/L (8-16); CALCIUM 8.5 mg/dL (8.5-10.1)
[2018-11-14] MEDS ORDERED: PT OWN MED DRAWER 7, Y5N ONE (08:49)
[2018-11-14] MEDS: ASPIRIN COATED 81 MG TABLET.EC PO SCH (09:09)
[2018-11-14] MEDS: SPIRONOLACTONE 25 MG TABLET (FP) PO SCH (09:09)
[2018-11-14] MEDS: FUROSEMIDE 20 MG TABLET (FP) PO SCH (09:09)
[2018-11-14] MEDS: PARoxetine HCL 10 MG TABLET PO SCH (09:10)
[2018-11-14] MEDS: CARVEDILOL 3.125 MG TABLET (FP) PO SCH (09:10)
--- NOTE | 2018-11-14 13:55 | PN ---
Progress Note (short form) - Note Progress Note: ########################## medical ################### Current Medications Aspirin (Ecotrin -) 81 mg PO DAILY [facility] Last Admin: 11/14/18 09:09 Dose: 81 mg Carvedilol (Coreg -) 3.125 mg PO ONCE ONE Stop: 11/15/18 08:01 Docusate Sodium (Colace -) 100 mg PO HS [facility] Last Admin: 11/13/18 21:37 Dose: 100 mg Furosemide (Lasix -) 20 mg PO DAILY [facility] Last Admin: 11/14/18 09:09 Dose: 20 mg Levothyroxine Sodium (Synthroid -) 50 mcg PO DAILY@0700 [facility] Last Admin: 11/14/18 06:40 Dose: 50 mcg Paroxetine HCl (Paxil -) 10 mg PO DAILY [facility] Last Admin: 11/14/18 09:10 Dose: 10 mg Spironolactone (Aldactone -) 25 mg PO DAILY [facility] Last Admin: 11/14/18 09:09 Dose: 25 mg Laboratory Results - last 24 hr 11/14/18 05:30 Sodium 139 Potassium 4.5 Chloride 106 Carbon Dioxide 26 Anion Gap 8 BUN 31 H Creatinine 1.7 H Creat Clearance w eGFR 38.78 Random Glucose 82 Calcium 8.5 Creatine Kinase 29 Troponin I 0.61 H* Vital Signs Temperature 98.4 F 11/14/18 11:03 Pulse Rate 75 11/14/18 11:03 Respiratory Rate 18 11/14/18 11:03 Blood Pressure 100/69 11/14/18 11:03 O2 Sat by Pulse Oximetry (%) 96 11/14/18 10:00 CC: feels unsettled post overnight episode in which he described "not being able to turn over while in bed" and had to call staff for help in turning to his side; he says that he was able to speak and move all Extrems; but could not position himself. He then got up to walk around the bed and then found himself on the floor. He was seen by staff afterwards. head CT was negative; he now c/o LBP ````````````````````````````````` skin--good color, no lesions heart--irreg lungs--clear but distant abd--soft back--no gross tenderness; gait intact ext--no edema appreciated neuro--alert; coherent; moves all Ext normally; speech clear; no focal deficits ; no tremors or ataxia appreciated `````````````````````````````````````` Summ > near-Syncope--as described (while out of bed), no apparent LOC, but may ahve gotten confused. Unsure if this could have been some form of hallucination or possibly a TIA. Head CT negative and has no residual deficits. > Decomp CHF--but still prone to low BP and may have fallen last PM 2nd orthostatic BP change; Dose of BB never changed to higher dose yesterday . PLAN : cont PO lasix/aldactone; hold BB today; will give test dose on AM; Trop edging higher (cardio made aware) > CRI--now BUN seems stable on PO lasix/aldact > ATF--paroxysmal? [facility]; he still does not wish to take a-c > high Trop--chronically high; likely 2nd chronic LVdysf (see echo); even higher today. PLAN: track daily > Lt Carotid occlusion--chronic; SIDNEY & vertebrals okay; Lipids in good range; cont antiPlt meds > Low mag--replenish as needed > Subcut skin nodules--longstanding & stable; likely lipomatous lesions ~~~~~~~~~~~~~~~~~~~ Dr Desai Problem List - Problems (1) Acute exacerbation of CHF (congestive heart failure) Code(s): I50.9 - HEART FAILURE, UNSPECIFIED Qualifiers: Heart failure type: combined systolic and diastolic Qualified Code(s): I50.43 - Acute on chronic combined systolic (congestive) and diastolic ( congestive) heart failure (2) AICD (automatic cardioverter/defibrillator) present Code(s): Z95.810 - PRESENCE OF AUTOMATIC (IMPLANTABLE) CARDIAC DEFIBRILLATOR (3) Aortic valve replaced Code(s): Z95.2 - PRESENCE OF PROSTHETIC HEART VALVE (4) Chronic renal insufficiency Code(s): N18.9 - CHRONIC KIDNEY DISEASE, UNSPECIFIED Qualifiers: Chronic kidney disease stage: stage 3 (moderate) Qualified Code(s): N18.3 - Chronic kidney disease, stage 3 (moderate) (5) Elevated troponin Code(s): R74.8 - ABNORMAL LEVELS OF OTHER SERUM ENZYMES (6) Arteriosclerotic heart disease (ASHD) Code(s): I25.10 - ATHSCL HEART DISEASE OF [place] CORONARY ARTERY W/O ANG PCTRS (7) Carotid occlusion, left Code(s): I65.22 - OCCLUSION AND STENOSIS OF LEFT CAROTID ARTERY (8) Anxiety and depression Code(s): F41.9 - ANXIETY DISORDER, UNSPECIFIED; F32.9 - MAJOR DEPRESSIVE DISORDER, SINGLE EPISODE, UNSPECIFIED (9) Hypothyroid Code(s): E03.9 - HYPOTHYROIDISM, UNSPECIFIED Qualifiers: Hypothyroidism type: acquired Qualified Code(s): E03.9 - Hypothyroidism, unspecified (10) PAD (peripheral artery disease) Code(s): I73.9 - PERIPHERAL VASCULAR DISEASE, UNSPECIFIED (11) Hypotension Code(s): I95.9 - HYPOTENSION, UNSPECIFIED Qualifiers: Hypotension type: other hypotension type Qualified Code(s): I95.89 - Other hypotension (12) Elderly person living alone Code(s): Z60.2 - PROBLEMS RELATED TO LIVING ALONE
--- NOTE | 2018-11-14 15:04 | PN ---
Progress Note, Physician Chief Complaint: Pt A&Ox3; sitting in chair; no further dizziness; no chest pain or dyspnea. History of Present Illness: Pt is an 83 yr old white man with significant PMHx of HTN, severe systolic CHF , s/p TAVR 09/2018, HTN, CAD (s/p pacemaker/defibrillator implantation, last interrogated today and poor ECHO done in office today), Gout, OA, Hypothyroidism , and anxiety, who presents to the emergency department with, 2 days of worsening shortness of breath. He was seen at his cardiologists office today who advised him to report to the ED. Patient was recently transferred to recent transfer to [facility] for aortic valve replacement, patient notes symptoms are similar to when he needed his valve replacement and CHF decompensation. Denies fever, chills, chest pain, palpitation, dizziness, weakness, N, V, D, abdominal pain, bladder and bowel problems, leg swelling, No sick contacts or travel. No new changes in medications. Allergies: NKA Past Medical History: HTN, CHF, HTN, CAD (s/p pacemaker/defibrillator implantation, last interrogated today and poor ECHO done in office today), Gout , OA, Hypothyroidism, and anxiety Social history: Lives with family. No smoking. No alcohol. No illicit drugs. Surgical history: Hernia repair, Aortic/Mitral valve replacement; CABG; AICD, left knee arthroscopic surgery. 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 Kidd s/p bio AVR #25 pericardial aortic valve and MV repair P2,P3 quadrangular resection [facility] dr. Prasad 2004 valve in valve TAVR 10-04-18 [facility] Ongoing medical problems [employer] AICD BIvi-pacing 2015 Dr. 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 2014 - Current Medication List Current Medications: Active Medications Aspirin (Ecotrin -) 81 mg PO DAILY [facility] Last Admin: 11/14/18 09:09 Dose: 81 mg Carvedilol (Coreg -) 3.125 mg PO ONCE ONE Stop: 11/15/18 08:01 Docusate Sodium (Colace -) 100 mg PO HS [facility] Last Admin: 11/13/18 21:37 Dose: 100 mg Furosemide (Lasix -) 20 mg PO DAILY [facility] Last Admin: 11/14/18 09:09 Dose: 20 mg Levothyroxine Sodium (Synthroid -) 50 mcg PO DAILY@0700 [facility] Last Admin: 11/14/18 06:40 Dose: 50 mcg Paroxetine HCl (Paxil -) 10 mg PO DAILY [facility] Last Admin: 11/14/18 09:10 Dose: 10 mg Spironolactone (Aldactone -) 25 mg PO DAILY [facility] Last Admin: 11/14/18 09:09 Dose: 25 mg - Objective Vital Signs: Vital Signs Temperature 98.4 F 11/14/18 11:03 Pulse Rate 75 11/14/18 11:03 Respiratory Rate 18 11/14/18 11:03 Blood Pressure 100/69 11/14/18 11:03 O2 Sat by Pulse Oximetry (%) 96 11/14/18 10:00 Constitutional: Yes: Calm Eyes: Yes: WNL HENT: Yes: WNL Neck: Yes: WNL Cardiovascular: Yes: S1, S2 (split) Respiratory: Yes: Regular Gastrointestinal: Yes: Soft ...Rectal Exam: Yes: Deferred Genitourinary: Yes: Anuria Breast(s): Yes: WNL Musculoskeletal: Yes: Muscle Weakness Extremities: Yes: Cool Edema: Yes Edema: LLE: Trace, RLE: Trace Peripheral Pulses WNL: Yes Integumentary: Yes: WNL Neurological: Yes: Alert, Oriented, Weakness Psychiatric: Yes: Alert, Oriented, Other (anxiety/depression) Labs: CBC, BMP 11/09/18 14:45 11/14/18 05:30 INR, PTT INR 1.13 (0.83-1.09) H 11/09/18 14:50 Problem List - Problems (1) AICD (automatic cardioverter/defibrillator) present Code(s): Z95.810 - PRESENCE OF AUTOMATIC (IMPLANTABLE) CARDIAC DEFIBRILLATOR (2) Abnormal liver function tests Code(s): R94.5 - ABNORMAL RESULTS OF LIVER FUNCTION STUDIES (3) Acute on chronic combined systolic and diastolic CHF, NYHA class 3 Assessment/Plan: Continue carvedilol, ideally 6.25 mg bid. On ACEI and spironolactone. Will attempt to continue the above regimen around-the clock because of pt's poor LVEF, dilated cardiomyopathy. Vital signs should be measured serially, Physical therapy will be important for pt to regain strength, minimize risk for falls. F/u BUN/Cr, electrolytes. Code(s): I50.43 - ACUTE ON CHRONIC COMBINED SYSTOLIC AND DIASTOLIC HRT FAIL (4) Acute on chronic renal failure Code(s): N17.9 - ACUTE KIDNEY FAILURE, UNSPECIFIED; N18.9 - CHRONIC KIDNEY DISEASE, UNSPECIFIED Qualifiers: (5) Anxiety and depression Code(s): F41.9 - ANXIETY DISORDER, UNSPECIFIED; F32.9 - MAJOR DEPRESSIVE DISORDER, SINGLE EPISODE, UNSPECIFIED (6) Aortic valve replaced Assessment/Plan: s/p TAVR 09/2018. s/p mitral valve repair. Code(s): Z95.2 - PRESENCE OF PROSTHETIC HEART VALVE
[2018-11-14] MEDS: DOCUSATE SODIUM 100 MG CAPSULE (FP) PO SCH (21:13)
[2018-11-15] MEDS: LEVOTHYROXINE NA 50 MCG TABLET (FP) PO SCH (06:47)
[2018-11-15 07:45] LABS: ANION GAP 6 MMOL/L (8-16); BLOOD UREA NITROGEN 33 mg/dL (7-18); CHLORIDE 104 mmol/L (98-107); CO2 25 mmol/L (21-32); CREATININE 1.7 mg/dL (0.55-1.3); GLUCOSE,RANDOM 86 mg/dL (74-106); SODIUM 135 mmol/L (136-145)
[2018-11-15] MEDS ORDERED: CARVEDILOL 3.125 MG TABLET (FP) PO ONE (08:00)
[2018-11-15] MEDS ORDERED: PT OWN MED DRAWER 7, Y5N ONE (10:39)
[2018-11-15] MEDS: ASPIRIN COATED 81 MG TABLET.EC PO SCH (11:10)
[2018-11-15] MEDS: FUROSEMIDE 20 MG TABLET (FP) PO SCH (11:11)
[2018-11-15] MEDS: PARoxetine HCL 10 MG TABLET PO SCH (11:11)
--- NOTE | 2018-11-15 12:38 | PN ---
Progress Note, Physician History of Present Illness: PMH s/p bio AVR #25 pericardial aortic valve and MV repair P2,P3 quadrangular resection [facility] dr. Prasad 2005 valve in valve TAVR 10-04-18 [facility] Ongoing medical problems [employer] AICD BIvi-pacing 2015 Dr. 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 2014 - Current Medication List Current Medications: Active Medications Aspirin (Ecotrin -) 81 mg PO DAILY [facility] Last Admin: 11/15/18 11:10 Dose: 81 mg Docusate Sodium (Colace -) 100 mg PO HS [facility] Last Admin: 11/14/18 21:13 Dose: 100 mg Furosemide (Lasix -) 20 mg PO DAILY [facility] Last Admin: 11/15/18 11:11 Dose: 20 mg Levothyroxine Sodium (Synthroid -) 50 mcg PO DAILY@0700 [facility] Last Admin: 11/15/18 06:47 Dose: 50 mcg Paroxetine HCl (Paxil -) 10 mg PO DAILY [facility] Last Admin: 11/15/18 11:11 Dose: 10 mg - Objective Vital Signs: Vital Signs Temperature 97.7 F 11/15/18 10:00 Pulse Rate 121 H 11/15/18 10:00 Respiratory Rate 20 11/15/18 10:00 Blood Pressure 67/46 L 11/15/18 10:00 O2 Sat by Pulse Oximetry (%) 96 11/15/18 10:00 Eyes: Yes: WNL, Conjunctiva Clear, EOM Intact HENT: Yes: WNL, Atraumatic, Normocephalic Neck: Yes: WNL, Supple, Trachea Midline Cardiovascular: Yes: WNL, Regular Rate and Rhythm Respiratory: Yes: WNL, Regular, CTA Bilaterally Gastrointestinal: Yes: WNL, Normal Bowel Sounds Genitourinary: Yes: WNL Musculoskeletal: Yes: WNL Extremities: Yes: WNL Edema: No Integumentary: Yes: WNL Neurological: Yes: WNL, Alert, Oriented ...Motor Strength: WNL Psychiatric: Yes: WNL Labs: CBC, BMP 11/09/18 14:45 11/15/18 05:30 INR, PTT INR 1.13 (0.83-1.09) H 11/09/18 14:50 Assessment/Plan Imp; chf systolic acute - meds stopped s/p bio AVR #25 pericardial aortic valve and MV repair P2,P3 quadrangular resection [facility] dr. Prasad 2005 valve in valve TAVR 10-04-18 [facility] [employer] AICD BIvi-pacing 2015 Dr. 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 2014 CRI AF -refusing AC no ARBS RADHA Entresto due to angioedema Plan; would recommend restarting cardiac meds. Patient condition is guarded and prognosis is poor without cardiac meds. Patient is not a heart transplant candidate due to advance age. Patient is not an LVAD as the destination theraphy due to refusal to take Coumadin. Prognosis is guarded.
--- NOTE | 2018-11-15 17:52 | PN ---
Progress Note (short form) - Note Progress Note: medical Current Medications Aspirin (Ecotrin -) 81 mg PO DAILY [facility] Last Admin: 11/15/18 11:10 Dose: 81 mg Docusate Sodium (Colace -) 100 mg PO HS [facility] Last Admin: 11/14/18 21:13 Dose: 100 mg Furosemide (Lasix -) 20 mg PO DAILY [facility] Last Admin: 11/15/18 11:11 Dose: 20 mg Levothyroxine Sodium (Synthroid -) 50 mcg PO DAILY@0700 [facility] Last Admin: 11/15/18 06:47 Dose: 50 mcg Paroxetine HCl (Paxil -) 10 mg PO DAILY [facility] Last Admin: 11/15/18 11:11 Dose: 10 mg Laboratory Results - last 24 hr 11/14/18 11/15/18 17:00 05:30 Sodium 135 L Potassium 5.0 Chloride 104 Carbon Dioxide 25 Anion Gap 6 L BUN 33 H Creatinine 1.7 H Creat Clearance w eGFR 38.78 Random Glucose 86 Calcium 9.0 Magnesium 2.0 Creatine Kinase 35 Troponin I 0.57 H Vital Signs Temperature 98.8 F 11/15/18 14:08 Pulse Rate 76 11/15/18 14:08 Respiratory Rate 20 11/15/18 10:00 Blood Pressure 89/58 L 11/15/18 14:08 O2 Sat by Pulse Oximetry (%) 96 11/15/18 10:00 CC: nothing new to report; was not active today ````````````````````````````````` skin--good color, Rt elbow abrasion heart--irreg lungs--clear but distant abd--soft ext--no edema appreciated; dressing on RUE neuro--alert; coherent; moves all Ext normally; speech clear; no focal deficits `````````````````````````````````````` Summ > near-Syncope--no recurrence. > Decomp CHF--still prone to low BP (when standing) even though he appears to be better compensated; received 1 dose of Coreg today in AM w/o feeling any ill effects . PLAN: cont PO lasix;' stop aldactone as potassium trending higher; change to low potassium diet; will hold BB for AM and determine if he can have it after doing PT > CRI--now BUN seems stable on PO lasix > ATF--paroxysmal? noted while in [facility] [place]; he still does not wish to take a-c > high Trop--chronically high; likely 2nd chronic LVdysf (see echo); is lower today, PLAN: track daily > Lt Carotid occlusion--chronic; SIDNEY & vertebrals okay; Lipids in good range; cont antiPlt meds > Low mag--replenish as needed > Subcut skin nodules--longstanding & stable; likely lipomatous lesions > abrasion skin--of Rt elbow; area cleaned & dressed >hypothyroidism--cliniaclly euthyroid; will up the dose to his maintence of 75mcg ~~~~~~~~~~~~~~~~~~~ Dr Desai Problem List - Problems (1) Acute exacerbation of CHF (congestive heart failure) Code(s): I50.9 - HEART FAILURE, UNSPECIFIED Qualifiers: Heart failure type: combined systolic and diastolic Qualified Code(s): I50.43 - Acute on chronic combined systolic (congestive) and diastolic ( congestive) heart failure (2) AICD (automatic cardioverter/defibrillator) present Code(s): Z95.810 - PRESENCE OF AUTOMATIC (IMPLANTABLE) CARDIAC DEFIBRILLATOR (3) Aortic valve replaced Code(s): Z95.2 - PRESENCE OF PROSTHETIC HEART VALVE (4) Chronic renal insufficiency Code(s): N18.9 - CHRONIC KIDNEY DISEASE, UNSPECIFIED Qualifiers: Chronic kidney disease stage: stage 3 (moderate) Qualified Code(s): N18.3 - Chronic kidney disease, stage 3 (moderate) (5) Elevated troponin Code(s): R74.8 - ABNORMAL LEVELS OF OTHER SERUM ENZYMES (6) Arteriosclerotic heart disease (ASHD) Code(s): I25.10 - ATHSCL HEART DISEASE OF [place] CORONARY ARTERY W/O ANG PCTRS (7) Carotid occlusion, left Code(s): I65.22 - OCCLUSION AND STENOSIS OF LEFT CAROTID ARTERY (8) Anxiety and depression Code(s): F41.9 - ANXIETY DISORDER, UNSPECIFIED; F32.9 - MAJOR DEPRESSIVE DISORDER, SINGLE EPISODE, UNSPECIFIED (9) Hypothyroid Code(s): E03.9 - HYPOTHYROIDISM, UNSPECIFIED Qualifiers: Hypothyroidism type: acquired Qualified Code(s): E03.9 - Hypothyroidism, unspecified (10) PAD (peripheral artery disease) Code(s): I73.9 - PERIPHERAL VASCULAR DISEASE, UNSPECIFIED (11) Hypotension Code(s): I95.9 - HYPOTENSION, UNSPECIFIED Qualifiers: Hypotension type: other hypotension type Qualified Code(s): I95.89 - Other hypotension (12) Elderly person living alone Code(s): Z60.2 - PROBLEMS RELATED TO LIVING ALONE
[2018-11-15] MEDS: DOCUSATE SODIUM 100 MG CAPSULE (FP) PO SCH (21:52)
[2018-11-16] MEDS: LEVOTHYROXINE NA 75 MCG TABLET (FP) PO SCH (06:12)
[2018-11-16 07:38] LABS: ALBUMIN 3.2 g/dl (3.4-5.0); ALK PHOS 91 U/L (45-117); ANION GAP 8 MMOL/L (8-16); BILIRUBIN,TOTAL 0.7 mg/dL (0.2-1); BLOOD UREA NITROGEN 31 mg/dL (7-18); CALCIUM 8.8 mg/dL (8.5-10.1); CHLORIDE 106 mmol/L (98-107); CO2 24 mmol/L (21-32); CREATININE 1.6 mg/dL (0.55-1.3); GLUCOSE,RANDOM 90 mg/dL (74-106); POTASSIUM 4.4 mmol/L (3.5-5.1); SGOT/AST 16 U/L (15-37); SGPT/ALT 14 U/L (13-61); SODIUM 137 mmol/L (136-145); TOT PROT 6.8 g/dl (6.4-8.2)
[2018-11-16] MEDS: ASPIRIN COATED 81 MG TABLET.EC PO SCH (10:05)
[2018-11-16] MEDS: PARoxetine HCL 10 MG TABLET PO SCH (10:05)
[2018-11-16] MEDS: FUROSEMIDE 40 MG TABLET (FP) PO SCH (10:05)
--- NOTE | 2018-11-16 11:39 | PN ---
Progress Note (short form) - Note Progress Note: medical Current Medications Aspirin (Ecotrin -) 81 mg PO DAILY [facility] Last Admin: 11/16/18 10:05 Dose: 81 mg Carvedilol (Coreg -) 3.125 mg PO BID [facility] Docusate Sodium (Colace -) 100 mg PO HS [facility] Last Admin: 11/15/18 21:52 Dose: 100 mg Furosemide (Lasix -) 40 mg PO DAILY [facility] Last Admin: 11/16/18 10:05 Dose: 40 mg Levothyroxine Sodium (Synthroid -) 75 mcg PO DAILY@0700 [facility] Last Admin: 11/16/18 06:12 Dose: 75 mcg Paroxetine HCl (Paxil -) 10 mg PO DAILY [facility] Last Admin: 11/16/18 10:05 Dose: 10 mg Laboratory Results - last 24 hr 11/16/18 06:00 Sodium 137 Potassium 4.4 Chloride 106 Carbon Dioxide 24 Anion Gap 8 BUN 31 H Creatinine 1.6 H Creat Clearance w eGFR 41.59 Random Glucose 90 Calcium 8.8 Total Bilirubin 0.7 AST 16 ALT 14 Alkaline Phosphatase 91 Creatine Kinase 27 Troponin I 0.65 H* Total Protein 6.8 Albumin 3.2 L Vital Signs Temperature 98.5 F 11/16/18 08:30 Pulse Rate 76 11/16/18 08:30 Respiratory Rate 22 H 11/16/18 08:30 Blood Pressure 102/75 11/16/18 08:30 O2 Sat by Pulse Oximetry (%) 96 11/16/18 10:00 CC: didn't sleep well last PM; was able to walk with PT this AM ````````````````````````````````` skin--good color, Rt elbow abrasion heart--irreg lungs--clear but distant abd--soft ext--no edema appreciated; dressing on RUE neuro--alert; coherent; moves all Ext normally; speech clear; no focal deficits `````````````````````````````````````` Summ > Decomp CHF--LVdysf; still prone to low BP (when standing) even though he appears to be better compensated; seen by Cardiology who has resumed Coreg . PLAN: cont PO lasix; watch orthstatic BPs and chemistries > CRI--overall, numerically stable. > ATF--paroxysmal? [facility]; he still does not wish to take a-c > high Trop--chronically high; likely 2nd chronic LVdysf (see echo); is fluctuating (see Cardio note). > Lt Carotid occlusion--stable chronic; SIDNEY & vertebrals okay; Lipids in good range; cont antiPlt meds > Low mag--replenish as needed > Subcut skin nodules--longstanding & stable; likely lipomatous lesions > abrasion skin--of Rt elbow; area cleaned & dressed >hypothyroidism--clinically euthyroid; up the dose to his maintence hormone to 75mcg ~~~~~~~~~~~~~~~~~~~ Dr Desai Problem List - Problems (1) Acute exacerbation of CHF (congestive heart failure) Code(s): I50.9 - HEART FAILURE, UNSPECIFIED Qualifiers: Heart failure type: combined systolic and diastolic Qualified Code(s): I50.43 - Acute on chronic combined systolic (congestive) and diastolic ( congestive) heart failure (2) AICD (automatic cardioverter/defibrillator) present Code(s): Z95.810 - PRESENCE OF AUTOMATIC (IMPLANTABLE) CARDIAC DEFIBRILLATOR (3) Aortic valve replaced Code(s): Z95.2 - PRESENCE OF PROSTHETIC HEART VALVE (4) Chronic renal insufficiency Code(s): N18.9 - CHRONIC KIDNEY DISEASE, UNSPECIFIED Qualifiers: Chronic kidney disease stage: stage 3 (moderate) Qualified Code(s): N18.3 - Chronic kidney disease, stage 3 (moderate) (5) Elevated troponin Code(s): R74.8 - ABNORMAL LEVELS OF OTHER SERUM ENZYMES (6) Arteriosclerotic heart disease (ASHD) Code(s): I25.10 - ATHSCL HEART DISEASE OF [place] CORONARY ARTERY W/O ANG PCTRS (7) Carotid occlusion, left Code(s): I65.22 - OCCLUSION AND STENOSIS OF LEFT CAROTID ARTERY (8) Anxiety and depression Code(s): F41.9 - ANXIETY DISORDER, UNSPECIFIED; F32.9 - MAJOR DEPRESSIVE DISORDER, SINGLE EPISODE, UNSPECIFIED (9) Hypothyroid Code(s): E03.9 - HYPOTHYROIDISM, UNSPECIFIED Qualifiers: Hypothyroidism type: acquired Qualified Code(s): E03.9 - Hypothyroidism, unspecified (10) PAD (peripheral artery disease) Code(s): I73.9 - PERIPHERAL VASCULAR DISEASE, UNSPECIFIED (11) Hypotension Code(s): I95.9 - HYPOTENSION, UNSPECIFIED Qualifiers: Hypotension type: other hypotension type Qualified Code(s): I95.89 - Other hypotension (12) Elderly person living alone Code(s): Z60.2 - PROBLEMS RELATED TO LIVING ALONE
[2018-11-16] MEDS: CARVEDILOL 3.125 MG TABLET (FP) PO SCH ×2 (11:55→21:16)
--- NOTE | 2018-11-16 12:13 | PN ---
Progress Note, Physician Chief Complaint: Pt A&Ox3; denies chest pain, dizziness, shortness of breath. History of Present Illness: Pt is an 83 yr old white man with significant PMHx of HTN, severe systolic CHF , s/p TAVR 09/2018, HTN, CAD (s/p pacemaker/defibrillator implantation, last interrogated today and poor ECHO done in office today), Gout, OA, Hypothyroidism , and anxiety, who presents to the emergency department with, 2 days of worsening shortness of breath. He was seen at his cardiologists office today who advised him to report to the ED. Patient was recently transferred to recent transfer to [facility] for aortic valve replacement, patient notes symptoms are similar to when he needed his valve replacement and CHF decompensation. Denies fever, chills, chest pain, palpitation, dizziness, weakness, N, V, D, abdominal pain, bladder and bowel problems, leg swelling, No sick contacts or travel. No new changes in medications. Allergies: NKA Past Medical History: HTN, CHF, HTN, CAD (s/p pacemaker/defibrillator implantation, last interrogated today and poor ECHO done in office today), Gout , OA, Hypothyroidism, and anxiety Social history: Lives with family. No smoking. No alcohol. No illicit drugs. Surgical history: Hernia repair, Aortic/Mitral valve replacement; CABG; AICD, left knee arthroscopic surgery. 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 Prasad 2004 valve in valve TAVR 10-04-18 [facility] Ongoing medical problems [employer] AICD BIvi-pacing 2015 Dr. 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 2014 - Current Medication List Current Medications: Active Medications Aspirin (Ecotrin -) 81 mg PO DAILY [facility] Last Admin: 11/16/18 10:05 Dose: 81 mg Carvedilol (Coreg -) 3.125 mg PO BID [facility] Docusate Sodium (Colace -) 100 mg PO HS [facility] Last Admin: 11/15/18 21:52 Dose: 100 mg Furosemide (Lasix -) 40 mg PO DAILY [facility] Last Admin: 11/16/18 10:05 Dose: 40 mg Levothyroxine Sodium (Synthroid -) 75 mcg PO DAILY@0700 [facility] Last Admin: 11/16/18 06:12 Dose: 75 mcg Paroxetine HCl (Paxil -) 10 mg PO DAILY [facility] Last Admin: 11/16/18 10:05 Dose: 10 mg - Objective Vital Signs: Vital Signs Temperature 98.5 F 11/16/18 08:30 Pulse Rate 76 11/16/18 08:30 Respiratory Rate 22 H 11/16/18 08:30 Blood Pressure 102/75 11/16/18 08:30 O2 Sat by Pulse Oximetry (%) 96 11/16/18 10:00 Constitutional: Yes: Anxious Eyes: Yes: WNL HENT: Yes: WNL Neck: Yes: WNL Cardiovascular: Yes: S1, S2 (split). No: JVD Respiratory: Yes: WNL Gastrointestinal: Yes: Soft ...Rectal Exam: Yes: Deferred Genitourinary: No: Anuria Breast(s): Yes: WNL Musculoskeletal: Yes: Muscle Weakness Extremities: Yes: Cool Edema: No Peripheral Pulses WNL: No Peripheral Pulses: Left Doralis Pedis: 1+, Right Dorsalis Pedis: 1+ Integumentary: Yes: Venous Stasis Changes Neurological: Yes: Alert, Oriented, Unsteady Gait, Weakness Psychiatric: Yes: Alert, Oriented, Other (anxiety/depression) Labs: CBC, BMP 11/09/18 14:45 11/16/18 06:00 INR, PTT INR 1.13 (0.83-1.09) H 11/09/18 14:50 Abnormal Lab Results 11/16/18 06:00 BUN 31 H Creatinine 1.6 H Troponin I 0.65 H* Albumin 3.2 L - ....Imaging Other: Image Reviewed (telemetry: ventricular paced rhythm; no arrhythmias) Problem List - Problems (1) AICD (automatic cardioverter/defibrillator) present Code(s): Z95.810 - PRESENCE OF AUTOMATIC (IMPLANTABLE) CARDIAC DEFIBRILLATOR (2) Acute on chronic combined systolic and diastolic CHF, NYHA class 3 Assessment/Plan: Discussed Mr. Willett's condition with him, as well as Dr Desai and nursing team. Will atempt to optimize medication regimen, restarting carvedilol and spironolactone over the next 24 hours and attempting to continue giving them without missing doses as long as pt remains clinically stable, even if the BP is relatively low. (Unable to use ACEI or ARB due to inducement of angioedema). Pt was made aware of the need to take great care when sitting up or getting out of bed; he has fallen in the past. Code(s): I50.43 - ACUTE ON CHRONIC COMBINED SYSTOLIC AND DIASTOLIC HRT FAIL (3) Acute on chronic renal failure Code(s): N17.9 - ACUTE KIDNEY FAILURE, UNSPECIFIED; N18.9 - CHRONIC KIDNEY DISEASE, UNSPECIFIED Qualifiers: (4) Anxiety and depression Code(s): F41.9 - ANXIETY DISORDER, UNSPECIFIED; F32.9 - MAJOR DEPRESSIVE DISORDER, SINGLE EPISODE, UNSPECIFIED (5) Aortic valve replaced Assessment/Plan: s/p TAVR 09/2018. s/p mitral valve repair. Code(s): Z95.2 - PRESENCE OF PROSTHETIC HEART VALVE
[2018-11-16] MEDS: DOCUSATE SODIUM 100 MG CAPSULE (FP) PO SCH (21:16)
[2018-11-17] MEDS: LEVOTHYROXINE NA 75 MCG TABLET (FP) PO SCH (06:58)
[2018-11-17 07:38] LABS: ANION GAP 10 MMOL/L (8-16); BLOOD UREA NITROGEN 34 mg/dL (7-18); CALCIUM 9.1 mg/dL (8.5-10.1); CHLORIDE 105 mmol/L (98-107); CO2 23 mmol/L (21-32); CREATININE 1.6 mg/dL (0.55-1.3); GLUCOSE,RANDOM 84 mg/dL (74-106); POTASSIUM 4.5 mmol/L (3.5-5.1); SODIUM 138 mmol/L (136-145)
[2018-11-17] MEDS: CARVEDILOL 3.125 MG TABLET (FP) PO SCH ×2 (12:07→21:09)
[2018-11-17] MEDS: SPIRONOLACTONE 25 MG TABLET (FP) PO SCH (12:07)
[2018-11-17] MEDS: ASPIRIN COATED 81 MG TABLET.EC PO SCH (12:07)
[2018-11-17] MEDS: FUROSEMIDE 40 MG TABLET (FP) PO SCH (12:07)
[2018-11-17] MEDS: PARoxetine HCL 10 MG TABLET PO SCH (12:08)
--- NOTE | 2018-11-17 17:49 | PN ---
Progress Note (short form) - Note Progress Note: ^^^^^^^^^^^^ medical ^^^^^^^^^^^^^^^^^ Current Medications Aspirin (Ecotrin -) 81 mg PO DAILY [facility] Last Admin: 11/17/18 12:07 Dose: 81 mg Carvedilol (Coreg -) 3.125 mg PO BID [facility] Last Admin: 11/17/18 12:07 Dose: 3.125 mg Docusate Sodium (Colace -) 100 mg PO HS [facility] Last Admin: 11/16/18 21:16 Dose: 100 mg Furosemide (Lasix -) 40 mg PO DAILY [facility] Last Admin: 11/17/18 12:07 Dose: 40 mg Levothyroxine Sodium (Synthroid -) 75 mcg PO DAILY@0700 [facility] Last Admin: 11/17/18 06:58 Dose: 75 mcg Paroxetine HCl (Paxil -) 10 mg PO DAILY [facility] Last Admin: 11/17/18 12:08 Dose: 10 mg Spironolactone (Aldactone -) 12.5 mg PO DAILY [facility] Last Admin: 11/17/18 12:07 Dose: 12.5 mg Laboratory Results - last 24 hr 11/17/18 05:30 Sodium 138 Potassium 4.5 Chloride 105 Carbon Dioxide 23 Anion Gap 10 BUN 34 H Creatinine 1.6 H Creat Clearance w eGFR 41.59 Random Glucose 84 Calcium 9.1 Creatine Kinase 27 Troponin I 0.37 H Vital Signs Temperature 97.8 F 11/17/18 14:00 Pulse Rate 76 11/17/18 14:00 Respiratory Rate 20 11/17/18 11:00 Blood Pressure 108/62 11/17/18 14:00 O2 Sat by Pulse Oximetry (%) 98 11/17/18 10:00 CC: sleepy today, but was able to walk with PT ````````````````````````````````` skin--good color, Rt elbow abrasion heart--irreg lungs--clear abd--soft ext--no edema appreciated; dressing on RUE neuro--alert in good spirits; coherent; moves all Ext normally; speech clear; no focal deficits `````````````````````````````````````` Summ > Decomp CHF--LVdysf; BP has been low, even though he appears to be better compensated; seen by Cardiology who has resumed Coreg & spironolactone added; prognosis guarded but seems to be tolerating current regimen and exercise tolerance has so far improved . PLAN: cont current meds > CRI--overall, numerically stable. > ATF--paroxysmal? noted while in [facility] post procedure; he still does not wish to take a-c > high Trop--chronically high; likely 2nd chronic LVdysf (see echo); lower today. > Lt Carotid occlusion--stable chronic; SIDNEY & vertebrals okay; Lipids in good range; cont antiPlt meds > Subcut skin nodules--longstanding & stable; likely lipomatous lesions > abrasion skin--of Rt elbow; area cleaned & dressed >hypothyroidism--clinically euthyroid ~~~~~~~~~~~~~~~~~~~ Dr Desai Problem List - Problems (1) Acute exacerbation of CHF (congestive heart failure) Code(s): I50.9 - HEART FAILURE, UNSPECIFIED Qualifiers: Heart failure type: combined systolic and diastolic Qualified Code(s): I50.43 - Acute on chronic combined systolic (congestive) and diastolic ( congestive) heart failure (2) AICD (automatic cardioverter/defibrillator) present Code(s): Z95.810 - PRESENCE OF AUTOMATIC (IMPLANTABLE) CARDIAC DEFIBRILLATOR (3) Aortic valve replaced Code(s): Z95.2 - PRESENCE OF PROSTHETIC HEART VALVE (4) Chronic renal insufficiency Code(s): N18.9 - CHRONIC KIDNEY DISEASE, UNSPECIFIED Qualifiers: Chronic kidney disease stage: stage 3 (moderate) Qualified Code(s): N18.3 - Chronic kidney disease, stage 3 (moderate) (5) Elevated troponin Code(s): R74.8 - ABNORMAL LEVELS OF OTHER SERUM ENZYMES (6) Arteriosclerotic heart disease (ASHD) Code(s): I25.10 - ATHSCL HEART DISEASE OF [place] CORONARY ARTERY W/O ANG PCTRS (7) Carotid occlusion, left Code(s): I65.22 - OCCLUSION AND STENOSIS OF LEFT CAROTID ARTERY (8) Anxiety and depression Code(s): F41.9 - ANXIETY DISORDER, UNSPECIFIED; F32.9 - MAJOR DEPRESSIVE DISORDER, SINGLE EPISODE, UNSPECIFIED (9) Hypothyroid Code(s): E03.9 - HYPOTHYROIDISM, UNSPECIFIED Qualifiers: Hypothyroidism type: acquired Qualified Code(s): E03.9 - Hypothyroidism, unspecified (10) PAD (peripheral artery disease) Code(s): I73.9 - PERIPHERAL VASCULAR DISEASE, UNSPECIFIED (11) Hypotension Code(s): I95.9 - HYPOTENSION, UNSPECIFIED Qualifiers: Hypotension type: other hypotension type Qualified Code(s): I95.89 - Other hypotension (12) Elderly person living alone Code(s): Z60.2 - PROBLEMS RELATED TO LIVING ALONE
--- NOTE | 2018-11-17 20:06 | PN ---
Progress Note, Physician Chief Complaint: Pt A&Ox3; walked down the long hallway without incident, and says he wanted to do it once more. History of Present Illness: Pt is an 83 yr old white man with significant PMHx of HTN, severe systolic CHF , s/p TAVR 09/2018, HTN, CAD (s/p pacemaker/defibrillator implantation, last interrogated today and poor ECHO done in office today), Gout, OA, Hypothyroidism , and anxiety, who presents to the emergency department with, 2 days of worsening shortness of breath. He was seen at his cardiologists office today who advised him to report to the ED. Patient was recently transferred to recent transfer to [facility] for aortic valve replacement, patient notes symptoms are similar to when he needed his valve replacement and CHF decompensation. Denies fever, chills, chest pain, palpitation, dizziness, weakness, N, V, D, abdominal pain, bladder and bowel problems, leg swelling, No sick contacts or travel. No new changes in medications. Allergies: NKA Past Medical History: HTN, CHF, HTN, CAD (s/p pacemaker/defibrillator implantation, last interrogated today and poor ECHO done in office today), Gout , OA, Hypothyroidism, and anxiety Social history: Lives with family. No smoking. No alcohol. No illicit drugs. Surgical history: Hernia repair, Aortic/Mitral valve replacement; CABG; AICD, left knee arthroscopic surgery. 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 Prasad 2004 valve in valve TAVR 10-04-18 [facility] Ongoing medical problems [employer] AICD BIvi-pacing 2015 Dr. 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 2014 - Current Medication List Current Medications: Active Medications Aspirin (Ecotrin -) 81 mg PO DAILY [facility] Last Admin: 11/17/18 12:07 Dose: 81 mg Carvedilol (Coreg -) 3.125 mg PO BID [facility] Last Admin: 11/17/18 12:07 Dose: 3.125 mg Docusate Sodium (Colace -) 100 mg PO HS [facility] Last Admin: 11/16/18 21:16 Dose: 100 mg Furosemide (Lasix -) 20 mg PO DAILY [facility] Levothyroxine Sodium (Synthroid -) 75 mcg PO DAILY@0700 [facility] Last Admin: 11/17/18 06:58 Dose: 75 mcg Paroxetine HCl (Paxil -) 10 mg PO DAILY [facility] Last Admin: 11/17/18 12:08 Dose: 10 mg Spironolactone (Aldactone -) 12.5 mg PO DAILY [facility] Last Admin: 11/17/18 12:07 Dose: 12.5 mg - Objective Vital Signs: Vital Signs Temperature 97.6 F 11/17/18 17:00 Pulse Rate 75 11/17/18 17:00 Respiratory Rate 20 11/17/18 17:00 Blood Pressure 99/68 11/17/18 17:00 O2 Sat by Pulse Oximetry (%) 98 11/17/18 10:00 Constitutional: Yes: Calm Eyes: Yes: WNL HENT: Yes: WNL Neck: Yes: WNL Cardiovascular: Yes: Pulse Irregular Respiratory: Yes: WNL Gastrointestinal: Yes: Soft ...Rectal Exam: Yes: Deferred Genitourinary: No: Anuria Musculoskeletal: Yes: Muscle Weakness Extremities: Yes: Cool Edema: No Peripheral Pulses WNL: Yes Integumentary: Yes: WNL Neurological: Yes: Alert, Oriented, Weakness Psychiatric: Yes: Alert, Oriented, Other (anxiety/depression) Labs: CBC, BMP 11/09/18 14:45 11/17/18 05:30 INR, PTT INR 1.13 (0.83-1.09) H 11/09/18 14:50 - ....Imaging Other: Image Reviewed (telemetry: Ventricular pacing) Problem List - Problems (1) AICD (automatic cardioverter/defibrillator) present Code(s): Z95.810 - PRESENCE OF AUTOMATIC (IMPLANTABLE) CARDIAC DEFIBRILLATOR (2) Acute on chronic combined systolic and diastolic CHF, NYHA class 3 Assessment/Plan: On carvedilol 3.125 mg bid. Started spironolactone 12.5 mg daily. As discussed with Dr. Desai, will plan to increase carvedilol on 11/19/18. F/u BUN/Cr, electrolytes, daily weight, Is and Os. Code(s): I50.43 - ACUTE ON CHRONIC COMBINED SYSTOLIC AND DIASTOLIC HRT FAIL (3) Acute on chronic renal failure Code(s): N17.9 - ACUTE KIDNEY FAILURE, UNSPECIFIED; N18.9 - CHRONIC KIDNEY DISEASE, UNSPECIFIED Qualifiers: (4) Anxiety and depression Assessment/Plan: on Paxil Code(s): F41.9 - ANXIETY DISORDER, UNSPECIFIED; F32.9 - MAJOR DEPRESSIVE DISORDER, SINGLE EPISODE, UNSPECIFIED (5) Aortic valve replaced Assessment/Plan: s/p TAVR 09/2018. s/p mitral valve repair. Code(s): Z95.2 - PRESENCE OF PROSTHETIC HEART VALVE
[2018-11-17] MEDS: DOCUSATE SODIUM 100 MG CAPSULE (FP) PO SCH (21:38)
[2018-11-18] MEDS: LEVOTHYROXINE NA 75 MCG TABLET (FP) PO SCH (06:45)
[2018-11-18 07:44] LABS: ANION GAP 9 MMOL/L (8-16); BLOOD UREA NITROGEN 33 mg/dL (7-18); CALCIUM 8.9 mg/dL (8.5-10.1); CHLORIDE 106 mmol/L (98-107); CO2 24 mmol/L (21-32); CREATININE 1.7 mg/dL (0.55-1.3); GLUCOSE,RANDOM 80 mg/dL (74-106); POTASSIUM 4.4 mmol/L (3.5-5.1); SODIUM 138 mmol/L (136-145)
[2018-11-18] MEDS ORDERED: PT OWN MED DRAWER 7, Y5N ONE (10:10)
[2018-11-18] MEDS: SPIRONOLACTONE 25 MG TABLET (FP) PO SCH (11:20)
[2018-11-18] MEDS: ASPIRIN COATED 81 MG TABLET.EC PO SCH (11:22)
[2018-11-18] MEDS: PARoxetine HCL 10 MG TABLET PO SCH (11:22)
[2018-11-18] MEDS: CARVEDILOL 3.125 MG TABLET (FP) PO SCH ×2 (11:22→22:23)
[2018-11-18] MEDS: FUROSEMIDE 20 MG TABLET (FP) PO SCH (11:22)
--- NOTE | 2018-11-18 11:59 | PN ---
Progress Note (short form) - Note Progress Note: ################ medical ################## Current Medications Aspirin (Ecotrin -) 81 mg PO DAILY [facility] Last Admin: 11/18/18 11:22 Dose: 81 mg Carvedilol (Coreg -) 3.125 mg PO BID [facility] Last Admin: 11/18/18 11:22 Dose: 3.125 mg Docusate Sodium (Colace -) 100 mg PO HS [facility] Last Admin: 11/17/18 21:38 Dose: Not Given Furosemide (Lasix -) 20 mg PO DAILY [facility] Last Admin: 11/18/18 11:22 Dose: 20 mg Levothyroxine Sodium (Synthroid -) 75 mcg PO DAILY@0700 [facility] Last Admin: 11/18/18 06:45 Dose: 75 mcg Paroxetine HCl (Paxil -) 10 mg PO DAILY [facility] Last Admin: 11/18/18 11:22 Dose: 10 mg Spironolactone (Aldactone -) 12.5 mg PO DAILY [facility] Last Admin: 11/18/18 11:20 Dose: 12.5 mg Laboratory Results - last 24 hr 11/18/18 05:30 Sodium 138 Potassium 4.4 Chloride 106 Carbon Dioxide 24 Anion Gap 9 BUN 33 H Creatinine 1.7 H Creat Clearance w eGFR 38.78 Random Glucose 80 Calcium 8.9 Creatine Kinase 32 Troponin I 0.22 H Vital Signs Temperature 98 F 11/17/18 22:00 Pulse Rate 75 11/18/18 05:54 Respiratory Rate 18 11/18/18 05:54 Blood Pressure 100/67 11/18/18 05:54 O2 Sat by Pulse Oximetry (%) 98 11/17/18 22:00 CC: feels okay but not slept at at night ````````````````````````````````` skin--good color, Rt elbow abrasion heart--irreg lungs--clear abd--soft ext--no edema appreciated neuro--drowsy but rousable, in good spirits; coherent; moves all Ext normally; speech clear; no focal deficits `````````````````````````````````````` Summ > Decomp CHF--LVdysf; BP has been low but has stabilized, prognosis guarded but seems to be tolerating current regimen and exercise tolerance has so far improved . PLAN: cont current meds; up dose of Coreg > CRI--overall, numerically stable. > ATF--paroxysmal? [facility]; he still does not wish to take a-c > high Trop--chronically high; likely 2nd chronic LVdysf (see echo); lower today. > Lt Carotid occlusion--stable chronic; SIDNEY & vertebrals okay; Lipids in good range; cont antiPlt meds > Subcut skin nodules--longstanding & stable; likely lipomatous lesions > abrasion skin--of Rt elbow; area cleaned & dressed >hypothyroidism--clinically euthyroid ~~~~~~~~~~~~~~~~~~~ Dr Desai Problem List - Problems (1) Acute exacerbation of CHF (congestive heart failure) Code(s): I50.9 - HEART FAILURE, UNSPECIFIED Qualifiers: Heart failure type: combined systolic and diastolic Qualified Code(s): I50.43 - Acute on chronic combined systolic (congestive) and diastolic ( congestive) heart failure (2) AICD (automatic cardioverter/defibrillator) present Code(s): Z95.810 - PRESENCE OF AUTOMATIC (IMPLANTABLE) CARDIAC DEFIBRILLATOR (3) Aortic valve replaced Code(s): Z95.2 - PRESENCE OF PROSTHETIC HEART VALVE (4) Chronic renal insufficiency Code(s): N18.9 - CHRONIC KIDNEY DISEASE, UNSPECIFIED Qualifiers: Chronic kidney disease stage: stage 3 (moderate) Qualified Code(s): N18.3 - Chronic kidney disease, stage 3 (moderate) (5) Elevated troponin Code(s): R74.8 - ABNORMAL LEVELS OF OTHER SERUM ENZYMES (6) Arteriosclerotic heart disease (ASHD) Code(s): I25.10 - ATHSCL HEART DISEASE OF [place] CORONARY ARTERY W/O ANG PCTRS (7) Carotid occlusion, left Code(s): I65.22 - OCCLUSION AND STENOSIS OF LEFT CAROTID ARTERY (8) Anxiety and depression Code(s): F41.9 - ANXIETY DISORDER, UNSPECIFIED; F32.9 - MAJOR DEPRESSIVE DISORDER, SINGLE EPISODE, UNSPECIFIED (9) Hypothyroid Code(s): E03.9 - HYPOTHYROIDISM, UNSPECIFIED Qualifiers: Hypothyroidism type: acquired Qualified Code(s): E03.9 - Hypothyroidism, unspecified (10) PAD (peripheral artery disease) Code(s): I73.9 - PERIPHERAL VASCULAR DISEASE, UNSPECIFIED (11) Hypotension Code(s): I95.9 - HYPOTENSION, UNSPECIFIED Qualifiers: Hypotension type: other hypotension type Qualified Code(s): I95.89 - Other hypotension (12) Elderly person living alone Code(s): Z60.2 - PROBLEMS RELATED TO LIVING ALONE
[2018-11-18] MEDS: DOCUSATE SODIUM 100 MG CAPSULE (FP) PO SCH (22:23)
[2018-11-19] MEDS: LEVOTHYROXINE NA 75 MCG TABLET (FP) PO SCH (06:42)
[2018-11-19] MEDS: FUROSEMIDE 20 MG TABLET (FP) PO SCH (09:03)
[2018-11-19] MEDS: ASPIRIN COATED 81 MG TABLET.EC PO SCH (09:03)
[2018-11-19] MEDS: SPIRONOLACTONE 25 MG TABLET (FP) PO SCH (09:03)
[2018-11-19] MEDS: CARVEDILOL 3.125 MG TABLET (FP) PO SCH (09:03)
[2018-11-19] MEDS: PARoxetine HCL 10 MG TABLET PO SCH (09:31)
[2018-11-19] MEDS ORDERED: CARVEDILOL 3.125 MG TABLET (FP) PO ONE (10:31)
--- NOTE | 2018-11-19 10:37 | PN ---
Progress Note, Physician Chief Complaint: Pt A&Ox3;asymptomatic. History of Present Illness: Pt is an 83 yr old white man with significant PMHx of HTN, severe systolic CHF , s/p TAVR 09/2018, HTN, CAD (s/p pacemaker/defibrillator implantation, last interrogated today and poor ECHO done in office today), Gout, OA, Hypothyroidism , and anxiety, who presents to the emergency department with, 2 days of worsening shortness of breath. He was seen at his cardiologists office today who advised him to report to the ED. Patient was recently transferred to recent transfer to [facility] for aortic valve replacement, patient notes symptoms are similar to when he needed his valve replacement and CHF decompensation. Denies fever, chills, chest pain, palpitation, dizziness, weakness, N, V, D, abdominal pain, bladder and bowel problems, leg swelling, No sick contacts or travel. No new changes in medications. Allergies: NKA Past Medical History: HTN, CHF, HTN, CAD (s/p pacemaker/defibrillator implantation, last interrogated today and poor ECHO done in office today), Gout , OA, Hypothyroidism, and anxiety Social history: Lives with family. No smoking. No alcohol. No illicit drugs. Surgical history: Hernia repair, Aortic/Mitral valve replacement; CABG; AICD, left knee arthroscopic surgery. 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 Kidd s/p bio AVR #25 pericardial aortic valve and MV repair P2,P3 quadrangular resection [facility] dr. Prasad 2004 valve in valve TAVR 10-04-18 [facility] Ongoing medical problems [employer] AICD BIvi-pacing 2015 Dr. 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 2014 - Current Medication List Current Medications: Active Medications Aspirin (Ecotrin -) 81 mg PO DAILY [facility] Last Admin: 11/19/18 09:03 Dose: 81 mg Carvedilol (Coreg -) 3.125 mg PO ONCE ONE Stop: 11/19/18 10:32 Carvedilol (Coreg -) 6.25 mg PO BID [facility] Docusate Sodium (Colace -) 100 mg PO HS [facility] Last Admin: 11/18/18 22:23 Dose: 100 mg Furosemide (Lasix -) 20 mg PO DAILY [facility] Last Admin: 11/19/18 09:03 Dose: 20 mg Levothyroxine Sodium (Synthroid -) 75 mcg PO DAILY@0700 [facility] Last Admin: 11/19/18 06:42 Dose: 75 mcg Paroxetine HCl (Paxil -) 10 mg PO DAILY [facility] Last Admin: 11/19/18 09:31 Dose: 10 mg Spironolactone (Aldactone -) 12.5 mg PO DAILY [facility] Last Admin: 11/19/18 09:03 Dose: 12.5 mg - Objective Vital Signs: Vital Signs Temperature 97.7 F 11/19/18 09:35 Pulse Rate 78 11/19/18 09:35 Respiratory Rate 18 11/19/18 09:00 Blood Pressure 101/69 11/19/18 09:35 O2 Sat by Pulse Oximetry (%) 97 11/19/18 09:35 Constitutional: Yes: No Distress Eyes: Yes: WNL HENT: Yes: WNL Neck: Yes: WNL Cardiovascular: Yes: Regular Rate and Rhythm, S2 (split) Respiratory: Yes: WNL Gastrointestinal: Yes: Normal Bowel Sounds, Soft ...Rectal Exam: Yes: Deferred Genitourinary: No: Anuria Breast(s): Yes: WNL Musculoskeletal: Yes: Muscle Weakness Extremities: Yes: Cool Edema: No Peripheral Pulses WNL: No Integumentary: Yes: WNL Neurological: Yes: Alert, Oriented, Weakness Psychiatric: Yes: Alert, Oriented Labs: CBC, BMP 11/09/18 14:45 11/18/18 05:30 INR, PTT INR 1.13 (0.83-1.09) H 11/09/18 14:50 - ....Imaging MRI: Image Reviewed (ventricular pacing) Problem List - Problems (1) AICD (automatic cardioverter/defibrillator) present Code(s): Z95.810 - PRESENCE OF AUTOMATIC (IMPLANTABLE) CARDIAC DEFIBRILLATOR (2) Acute on chronic combined systolic and diastolic CHF, NYHA class 3 Assessment/Plan: On carvedilol 3.125 mg bid. Started spironolactone 12.5 mg daily; plan to increase to 25 mg daily, while furosemide is decreased (now at 20 mg daily). As discussed with Dr. Desai, will plan to increase carvedilol on 11/19/18. F/u BUN/Cr, electrolytes, daily weight, Is and Os. Code(s): I50.43 - ACUTE ON CHRONIC COMBINED SYSTOLIC AND DIASTOLIC HRT FAIL (3) Acute on chronic renal failure Assessment/Plan: stable; K+ <5 Code(s): N17.9 - ACUTE KIDNEY FAILURE, UNSPECIFIED; N18.9 - CHRONIC KIDNEY DISEASE, UNSPECIFIED Qualifiers: (4) Anxiety and depression Assessment/Plan: on Paxil Code(s): F41.9 - ANXIETY DISORDER, UNSPECIFIED; F32.9 - MAJOR DEPRESSIVE DISORDER, SINGLE EPISODE, UNSPECIFIED (5) Aortic valve replaced Assessment/Plan: s/p TAVR 09/2018. s/p mitral valve repair. Code(s): Z95.2 - PRESENCE OF PROSTHETIC HEART VALVE
--- NOTE | 2018-11-19 10:42 | PN ---
Progress Note, Physician Chief Complaint: Pt A&Ox3;sying in bed; no chest pain or dyspnea. History of Present Illness: Pt is an 83 yr old white man with significant PMHx of HTN, severe systolic CHF , s/p TAVR 09/2018, HTN, CAD (s/p pacemaker/defibrillator implantation, last interrogated today and poor ECHO done in office today), Gout, OA, Hypothyroidism , and anxiety, who presents to the emergency department with, 2 days of worsening shortness of breath. He was seen at his cardiologists office today who advised him to report to the ED. Patient was recently transferred to recent transfer to [facility] for aortic valve replacement, patient notes symptoms are similar to when he needed his valve replacement and CHF decompensation. Denies fever, chills, chest pain, palpitation, dizziness, weakness, N, V, D, abdominal pain, bladder and bowel problems, leg swelling, No sick contacts or travel. No new changes in medications. Allergies: NKA Past Medical History: HTN, CHF, HTN, CAD (s/p pacemaker/defibrillator implantation, last interrogated today and poor ECHO done in office today), Gout , OA, Hypothyroidism, and anxiety Social history: Lives with family. No smoking. No alcohol. No illicit drugs. Surgical history: Hernia repair, Aortic/Mitral valve replacement; CABG; AICD, left knee arthroscopic surgery. 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 Kidd s/p bio AVR #25 pericardial aortic valve and MV repair P2,P3 quadrangular resection [facility] dr. Prasad 2004 valve in valve TAVR 10-04-18 [facility] Ongoing medical problems [employer] AICD BIvi-pacing 2015 Dr. 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 2014 - Current Medication List Current Medications: Active Medications Aspirin (Ecotrin -) 81 mg PO DAILY [facility] Last Admin: 11/19/18 09:03 Dose: 81 mg Carvedilol (Coreg -) 3.125 mg PO ONCE ONE Stop: 11/19/18 10:32 Carvedilol (Coreg -) 6.25 mg PO BID [facility] Docusate Sodium (Colace -) 100 mg PO HS [facility] Last Admin: 11/18/18 22:23 Dose: 100 mg Furosemide (Lasix -) 20 mg PO DAILY [facility] Last Admin: 11/19/18 09:03 Dose: 20 mg Levothyroxine Sodium (Synthroid -) 75 mcg PO DAILY@0700 [facility] Last Admin: 11/19/18 06:42 Dose: 75 mcg Paroxetine HCl (Paxil -) 10 mg PO DAILY [facility] Last Admin: 11/19/18 09:31 Dose: 10 mg Spironolactone (Aldactone -) 12.5 mg PO DAILY [facility] Last Admin: 11/19/18 09:03 Dose: 12.5 mg - Objective Vital Signs: Vital Signs Temperature 97.7 F 11/19/18 09:35 Pulse Rate 78 11/19/18 09:35 Respiratory Rate 18 11/19/18 09:00 Blood Pressure 101/69 11/19/18 09:35 O2 Sat by Pulse Oximetry (%) 97 11/19/18 09:35 Constitutional: Yes: Calm Eyes: Yes: WNL HENT: Yes: WNL Neck: Yes: WNL Cardiovascular: Yes: Pulse Irregular, S1, S2 (split) Respiratory: Yes: WNL Gastrointestinal: Yes: Soft ...Rectal Exam: Yes: Deferred Genitourinary: No: Anuria Breast(s): Yes: WNL Musculoskeletal: Yes: Muscle Weakness Extremities: Yes: WNL Edema: No Peripheral Pulses WNL: Yes Integumentary: Yes: WNL Neurological: Yes: Alert, Oriented, Weakness Psychiatric: Yes: Alert, Oriented Labs: CBC, BMP 11/09/18 14:45 11/18/18 05:30 INR, PTT INR 1.13 (0.83-1.09) H 11/09/18 14:50 Abnormal Lab Results 11/20/18 05:30 Anion Gap 7 L BUN 35 H Creatinine 1.7 H Troponin I 0.21 H - ....Imaging Other: Image Reviewed (telemetry: Ventricular-paced rhythm) Problem List - Problems (1) AICD (automatic cardioverter/defibrillator) present Code(s): Z95.810 - PRESENCE OF AUTOMATIC (IMPLANTABLE) CARDIAC DEFIBRILLATOR (2) Acute on chronic combined systolic and diastolic CHF, NYHA class 3 Assessment/Plan: OIncreased carvedilol to 6.25mg bid; appears to be tolerating it well. Started spironolactone 12.5 mg daily; plan to increase to 25 mg daily in am, while sidcontinuing furosemide K+ remain < 5, and BUN?cr, though abnormal, have no changed appreciably since it was started. Pt is unable to take ACEI or ARB (angioedema results). F/u BUN/Cr, electrolytes, daily weight, Is and Os. Code(s): I50.43 - ACUTE ON CHRONIC COMBINED SYSTOLIC AND DIASTOLIC HRT FAIL (3) Acute on chronic renal failure Assessment/Plan: stable; K+ <5 F/u carefully as medication changes are made (increasing spironolactone, livc0bsaesk furosemide). Code(s): N17.9 - ACUTE KIDNEY FAILURE, UNSPECIFIED; N18.9 - CHRONIC KIDNEY DISEASE, UNSPECIFIED Qualifiers: (4) Anxiety and depression Assessment/Plan: on Paxil Code(s): F41.9 - ANXIETY DISORDER, UNSPECIFIED; F32.9 - MAJOR DEPRESSIVE DISORDER, SINGLE EPISODE, UNSPECIFIED (5) Aortic valve replaced Assessment/Plan: s/p TAVR 09/2018. s/p mitral valve repair. Code(s): Z95.2 - PRESENCE OF PROSTHETIC HEART VALVE
--- NOTE | 2018-11-19 15:15 | PN ---
Progress Note (short form) - Note Progress Note: ^^^^^^^^^^^^^^^^^^ Medical ^^^^^^^^^^^^^^^^^^^^^^^ Current Medications Aspirin (Ecotrin -) 81 mg PO DAILY [facility] Last Admin: 11/19/18 09:03 Dose: 81 mg Carvedilol (Coreg -) 6.25 mg PO BID [facility] Docusate Sodium (Colace -) 100 mg PO HS [facility] Last Admin: 11/18/18 22:23 Dose: 100 mg Furosemide (Lasix -) 20 mg PO DAILY [facility] Last Admin: 11/19/18 09:03 Dose: 20 mg Levothyroxine Sodium (Synthroid -) 75 mcg PO DAILY@0700 [facility] Last Admin: 11/19/18 06:42 Dose: 75 mcg Paroxetine HCl (Paxil -) 10 mg PO DAILY [facility] Last Admin: 11/19/18 09:31 Dose: 10 mg Spironolactone (Aldactone -) 12.5 mg PO DAILY [facility] Last Admin: 11/19/18 09:03 Dose: 12.5 mg Vital Signs Temperature 97.9 F 11/19/18 14:41 Pulse Rate 85 11/19/18 14:41 Respiratory Rate 18 11/19/18 09:00 Blood Pressure 89/56 L 11/19/18 14:41 O2 Sat by Pulse Oximetry (%) 97 11/19/18 09:35 CC: feels okay, not dizzy ````````````````````````````````` skin--good color, heart--irreg lungs--clear abd--soft ext--no edema appreciated neuro--alert, in good spirits; coherent; moves all Ext normally; speech clear; no focal deficits `````````````````````````````````````` Summ > Decomp CHF--LVdysf; BP has been low but has stabilized on current agents . PLAN: cont current meds; up dose of Coreg to 6.25 as per Cardiology > CRI--overall, numerically stable. > ATF--paroxysmal? [facility]; he still does not wish to take a-c > high Trop--chronically high; likely 2nd chronic LVdysf (see echo). > Lt Carotid occlusion--stable chronic; SIDNEY & vertebrals okay; Lipids in good range; cont antiPlt meds > Subcut skin nodules--longstanding & stable; likely lipomatous lesions > abrasion skin--of Rt elbow; area cleaned & dressed >hypothyroidism--clinically euthyroid ~~~~~~~~~~~~~~~~~~~ Dr Desai Problem List - Problems (1) Acute exacerbation of CHF (congestive heart failure) Code(s): I50.9 - HEART FAILURE, UNSPECIFIED Qualifiers: Heart failure type: combined systolic and diastolic Qualified Code(s): I50.43 - Acute on chronic combined systolic (congestive) and diastolic ( congestive) heart failure (2) AICD (automatic cardioverter/defibrillator) present Code(s): Z95.810 - PRESENCE OF AUTOMATIC (IMPLANTABLE) CARDIAC DEFIBRILLATOR (3) Aortic valve replaced Code(s): Z95.2 - PRESENCE OF PROSTHETIC HEART VALVE (4) Chronic renal insufficiency Code(s): N18.9 - CHRONIC KIDNEY DISEASE, UNSPECIFIED Qualifiers: Chronic kidney disease stage: stage 3 (moderate) Qualified Code(s): N18.3 - Chronic kidney disease, stage 3 (moderate) (5) Elevated troponin Code(s): R74.8 - ABNORMAL LEVELS OF OTHER SERUM ENZYMES (6) Arteriosclerotic heart disease (ASHD) Code(s): I25.10 - ATHSCL HEART DISEASE OF [place] CORONARY ARTERY W/O ANG PCTRS (7) Carotid occlusion, left Code(s): I65.22 - OCCLUSION AND STENOSIS OF LEFT CAROTID ARTERY (8) Anxiety and depression Code(s): F41.9 - ANXIETY DISORDER, UNSPECIFIED; F32.9 - MAJOR DEPRESSIVE DISORDER, SINGLE EPISODE, UNSPECIFIED (9) Hypothyroid Code(s): E03.9 - HYPOTHYROIDISM, UNSPECIFIED Qualifiers: Hypothyroidism type: acquired Qualified Code(s): E03.9 - Hypothyroidism, unspecified (10) PAD (peripheral artery disease) Code(s): I73.9 - PERIPHERAL VASCULAR DISEASE, UNSPECIFIED (11) Hypotension Code(s): I95.9 - HYPOTENSION, UNSPECIFIED Qualifiers: Hypotension type: other hypotension type Qualified Code(s): I95.89 - Other hypotension (12) Elderly person living alone Code(s): Z60.2 - PROBLEMS RELATED TO LIVING ALONE
[2018-11-19] MEDS: CARVEDILOL 6.25 MG TABLET (FP) PO SCH (22:03)
[2018-11-19] MEDS: DOCUSATE SODIUM 100 MG CAPSULE (FP) PO SCH (22:04)
[2018-11-20] MEDS: LEVOTHYROXINE NA 75 MCG TABLET (FP) PO SCH (06:43)
[2018-11-20 06:57] LABS: ANION GAP 7 MMOL/L (8-16); BLOOD UREA NITROGEN 35 mg/dL (7-18); CALCIUM 8.9 mg/dL (8.5-10.1); CHLORIDE 106 mmol/L (98-107); CO2 23 mmol/L (21-32); CREATININE 1.7 mg/dL (0.55-1.3); GLUCOSE,RANDOM 92 mg/dL (74-106); POTASSIUM 4.5 mmol/L (3.5-5.1); SODIUM 136 mmol/L (136-145)
[2018-11-20] MEDS ORDERED: PT OWN MED DRAWER 7, Y5N ONE (09:12)
[2018-11-20] MEDS: ASPIRIN COATED 81 MG TABLET.EC PO SCH (09:23)
[2018-11-20] MEDS: PARoxetine HCL 10 MG TABLET PO SCH (09:23)
[2018-11-20] MEDS: CARVEDILOL 6.25 MG TABLET (FP) PO SCH ×2 (09:23→21:21)
[2018-11-20] MEDS: SPIRONOLACTONE 25 MG TABLET (FP) PO SCH (09:23)
--- NOTE | 2018-11-20 12:06 | PN ---
Progress Note, Physician History of Present Illness: PMH s/p bio AVR #25 pericardial aortic valve and MV repair P2,P3 quadrangular resection [facility] dr. Prasad 2005 valve in valve TAVR 10-04-18 [facility] Ongoing medical problems [employer] AICD BIvi-pacing 2015 Dr. 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 2014 - Current Medication List Current Medications: Active Medications Aspirin (Ecotrin -) 81 mg PO DAILY [facility] Last Admin: 11/20/18 09:23 Dose: 81 mg Carvedilol (Coreg -) 6.25 mg PO BID [facility] Last Admin: 11/20/18 09:23 Dose: 6.25 mg Docusate Sodium (Colace -) 100 mg PO HS [facility] Last Admin: 11/19/18 22:04 Dose: 100 mg Levothyroxine Sodium (Synthroid -) 75 mcg PO DAILY@0700 [facility] Last Admin: 11/20/18 06:43 Dose: 75 mcg Paroxetine HCl (Paxil -) 10 mg PO DAILY [facility] Last Admin: 11/20/18 09:23 Dose: 10 mg Spironolactone (Aldactone -) 25 mg PO DAILY [facility] Last Admin: 11/20/18 09:23 Dose: 25 mg - Objective Vital Signs: Vital Signs Temperature 98 F 11/20/18 08:25 Pulse Rate 80 11/20/18 08:25 Respiratory Rate 20 11/20/18 08:57 Blood Pressure 105/73 11/20/18 08:25 O2 Sat by Pulse Oximetry (%) 96 11/20/18 08:57 Eyes: Yes: WNL, Conjunctiva Clear, EOM Intact HENT: Yes: WNL, Atraumatic, Normocephalic Neck: Yes: WNL, Supple, Trachea Midline Cardiovascular: Yes: WNL, Regular Rate and Rhythm Respiratory: Yes: WNL, Regular, CTA Bilaterally Gastrointestinal: Yes: WNL, Normal Bowel Sounds Genitourinary: Yes: WNL Musculoskeletal: Yes: WNL Extremities: Yes: WNL Edema: No Integumentary: Yes: WNL Neurological: Yes: WNL, Alert, Oriented ...Motor Strength: WNL Psychiatric: Yes: WNL Labs: CBC, BMP 11/09/18 14:45 11/20/18 05:30 INR, PTT INR 1.13 (0.83-1.09) H 11/09/18 14:50 Assessment/Plan Imp; chf systolic acute - improving tolerating Coreg 6.25 BID and Aldactone 25 well - bp stable s/p bio AVR #25 pericardial aortic valve and MV repair P2,P3 quadrangular resection [facility] dr. Prasad 2004 valve in valve TAVR 10-04-18 [facility] [employer] AICD BIvi-pacing 2015 Dr. 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 2014 CRI AF -refusing AC no ARBS RADHA Entresto due to angioedema Plan; increase Coreg to 12.5 BID 11-21-18 D/c to rehab next 3-4 days if tolerates increased dose of cardiac meds d/w dr. Desai
--- NOTE | 2018-11-20 12:19 | PN ---
Progress Note (short form) - Note Progress Note: &&&&&&&&&&&& medical &&&&&&&&&&&& Current Medications Aspirin (Ecotrin -) 81 mg PO DAILY [facility] Last Admin: 11/20/18 09:23 Dose: 81 mg Carvedilol (Coreg -) 6.25 mg PO BID [facility] Last Admin: 11/20/18 09:23 Dose: 6.25 mg Docusate Sodium (Colace -) 100 mg PO HS [facility] Last Admin: 11/19/18 22:04 Dose: 100 mg Levothyroxine Sodium (Synthroid -) 75 mcg PO DAILY@0700 [facility] Last Admin: 11/20/18 06:43 Dose: 75 mcg Paroxetine HCl (Paxil -) 10 mg PO DAILY [facility] Last Admin: 11/20/18 09:23 Dose: 10 mg Spironolactone (Aldactone -) 25 mg PO DAILY [facility] Last Admin: 11/20/18 09:23 Dose: 25 mg Laboratory Results - last 24 hr 11/20/18 05:30 Sodium 136 Potassium 4.5 Chloride 106 Carbon Dioxide 23 Anion Gap 7 L BUN 35 H Creatinine 1.7 H Creat Clearance w eGFR 38.78 Random Glucose 92 Calcium 8.9 Creatine Kinase 34 Troponin I 0.21 H Vital Signs Temperature 98 F 11/20/18 08:25 Pulse Rate 80 11/20/18 08:25 Respiratory Rate 20 11/20/18 08:57 Blood Pressure 105/73 11/20/18 08:25 O2 Sat by Pulse Oximetry (%) 96 11/20/18 08:57 CC: feels okay ````````````````````````````````` skin--good color heart--irreg lungs--clear abd--soft ext--no edema appreciated neuro--alert, in good spirits; coherent; moves all Ext normally; speech clear; no focal deficits `````````````````````````````````````` Summ > Decomp CHF--LVdysf; BP has been low but has stabilized on current agents . PLAN: cont current meds; up dose of Coreg to 12.5 BID as per Cardiology > CRI--overall, numerically stable. > ATF--paroxysmal? noted while [facility]; he still does not wish to take a-c > high Trop--chronically high; likely 2nd chronic LVdysf (see echo). > Lt Carotid occlusion--stable chronic; SIDNEY & vertebrals okay; Lipids in good range; cont antiPlt meds > Subcut skin nodules--longstanding & stable; likely lipomatous lesions > abrasion skin--of Rt elbow; area cleaned & dressed >hypothyroidism--clinically euthyroid ~~~~~~~~~~~~~~~~~~~ Dr Desai Problem List - Problems (1) Acute exacerbation of CHF (congestive heart failure) Code(s): I50.9 - HEART FAILURE, UNSPECIFIED Qualifiers: Heart failure type: combined systolic and diastolic Qualified Code(s): I50.43 - Acute on chronic combined systolic (congestive) and diastolic ( congestive) heart failure (2) AICD (automatic cardioverter/defibrillator) present Code(s): Z95.810 - PRESENCE OF AUTOMATIC (IMPLANTABLE) CARDIAC DEFIBRILLATOR (3) Aortic valve replaced Code(s): Z95.2 - PRESENCE OF PROSTHETIC HEART VALVE (4) Chronic renal insufficiency Code(s): N18.9 - CHRONIC KIDNEY DISEASE, UNSPECIFIED Qualifiers: Chronic kidney disease stage: stage 3 (moderate) Qualified Code(s): N18.3 - Chronic kidney disease, stage 3 (moderate) (5) Elevated troponin Code(s): R74.8 - ABNORMAL LEVELS OF OTHER SERUM ENZYMES (6) Arteriosclerotic heart disease (ASHD) Code(s): I25.10 - ATHSCL HEART DISEASE OF [place] CORONARY ARTERY W/O ANG PCTRS (7) Carotid occlusion, left Code(s): I65.22 - OCCLUSION AND STENOSIS OF LEFT CAROTID ARTERY (8) Anxiety and depression Code(s): F41.9 - ANXIETY DISORDER, UNSPECIFIED; F32.9 - MAJOR DEPRESSIVE DISORDER, SINGLE EPISODE, UNSPECIFIED (9) Hypothyroid Code(s): E03.9 - HYPOTHYROIDISM, UNSPECIFIED Qualifiers: Hypothyroidism type: acquired Qualified Code(s): E03.9 - Hypothyroidism, unspecified (10) PAD (peripheral artery disease) Code(s): I73.9 - PERIPHERAL VASCULAR DISEASE, UNSPECIFIED (11) Hypotension Code(s): I95.9 - HYPOTENSION, UNSPECIFIED Qualifiers: Hypotension type: other hypotension type Qualified Code(s): I95.89 - Other hypotension (12) Elderly person living alone Code(s): Z60.2 - PROBLEMS RELATED TO LIVING ALONE
[2018-11-20] MEDS: DOCUSATE SODIUM 100 MG CAPSULE (FP) PO SCH (21:20)
[2018-11-21] MEDS: LEVOTHYROXINE NA 75 MCG TABLET (FP) PO SCH (06:17)
[2018-11-21 08:32] LABS: ANION GAP 9 MMOL/L (8-16); BLOOD UREA NITROGEN 34 mg/dL (7-18); CALCIUM 8.9 mg/dL (8.5-10.1); CHLORIDE 107 mmol/L (98-107); CO2 22 mmol/L (21-32); CREATININE 1.6 mg/dL (0.55-1.3); GLUCOSE,RANDOM 82 mg/dL (74-106); POTASSIUM 4.7 mmol/L (3.5-5.1); SODIUM 138 mmol/L (136-145)
[2018-11-21] MEDS ORDERED: PT OWN MED DRAWER 7, Y5N ONE (09:56)
[2018-11-21] MEDS: ASPIRIN COATED 81 MG TABLET.EC PO SCH (10:30)
[2018-11-21] MEDS: PARoxetine HCL 10 MG TABLET PO SCH (10:31)
[2018-11-21] MEDS: SPIRONOLACTONE 25 MG TABLET (FP) PO SCH (10:31)
[2018-11-21] MEDS: CARVEDILOL 12.5 MG TABLET (FP) PO SCH ×2 (10:31→22:30)
--- NOTE | 2018-11-21 15:17 | PN ---
Progress Note, Physician Chief Complaint: Pt A&Ox3. Lily Dale mild dizziness earlier in the day, and has been having diarrhea today. He was able to walk, and said he could have gone for a longer time. History of Present Illness: Pt is an 83 yr old white man with significant PMHx of HTN, severe systolic CHF , s/p TAVR 09/2018, HTN, CAD (s/p pacemaker/defibrillator implantation, last interrogated today and poor ECHO done in office today), Gout, OA, Hypothyroidism , and anxiety, who presents to the emergency department with, 2 days of worsening shortness of breath. He was seen at his cardiologists office today who advised him to report to the ED. Patient was recently transferred to recent transfer to [facility] for aortic valve replacement, patient notes symptoms are similar to when he needed his valve replacement and CHF decompensation. Denies fever, chills, chest pain, palpitation, dizziness, weakness, N, V, D, abdominal pain, bladder and bowel problems, leg swelling, No sick contacts or travel. No new changes in medications. Allergies: NKA Past Medical History: HTN, CHF, HTN, CAD (s/p pacemaker/defibrillator implantation, last interrogated today and poor ECHO done in office today), Gout , OA, Hypothyroidism, and anxiety Social history: Lives with family. No smoking. No alcohol. No illicit drugs. Surgical history: Hernia repair, Aortic/Mitral valve replacement; CABG; AICD, left knee arthroscopic surgery. PMD: Dr. Desai [employer] Operator: Dr. Kidd s/p bio AVR #25 pericardial aortic valve and MV repair P2,P3 quadrangular resection [facility] dr. Prasad 2004 valve in valve TAVR 10-04-18 [facility] Ongoing medical problems [employer] AICD BIvi-pacing 2015 Dr. 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 2014 - Current Medication List Current Medications: Active Medications Aspirin (Ecotrin -) 81 mg PO DAILY [facility] Last Admin: 11/21/18 10:30 Dose: 81 mg Carvedilol (Coreg -) 12.5 mg PO BID [facility] Last Admin: 11/21/18 10:31 Dose: 12.5 mg Docusate Sodium (Colace -) 100 mg PO HS [facility] Last Admin: 11/20/18 21:20 Dose: 100 mg Levothyroxine Sodium (Synthroid -) 75 mcg PO DAILY@0700 [facility] Last Admin: 11/21/18 06:17 Dose: 75 mcg Paroxetine HCl (Paxil -) 10 mg PO DAILY [facility] Last Admin: 11/21/18 10:31 Dose: 10 mg Spironolactone (Aldactone -) 25 mg PO DAILY [facility] Last Admin: 11/21/18 10:31 Dose: 25 mg - Objective Vital Signs: Vital Signs Temperature 98.2 F 11/21/18 13:40 Pulse Rate 75 11/21/18 15:07 Respiratory Rate 20 11/21/18 15:07 Blood Pressure 105/70 11/21/18 15:07 O2 Sat by Pulse Oximetry (%) 96 11/21/18 09:44 Constitutional: Yes: Other (upset at noise level from hallway, keeping him from resting) Eyes: Yes: WNL HENT: Yes: WNL Neck: Yes: WNL Cardiovascular: Yes: S1, S2 (split) Respiratory: Yes: WNL Gastrointestinal: Yes: Soft ...Rectal Exam: Yes: Deferred Genitourinary: Yes: Anuria Musculoskeletal: Yes: Muscle Weakness Extremities: Yes: WNL, Other (wears compression stockings) Edema: No Peripheral Pulses WNL: Yes Integumentary: Yes: WNL Neurological: Yes: Alert, Oriented Psychiatric: Yes: Alert, Oriented Labs: CBC, BMP 11/09/18 14:45 11/21/18 06:20 INR, PTT INR 1.13 (0.83-1.09) H 11/09/18 14:50 Abnormal Lab Results 11/21/18 06:20 BUN 34 H Creatinine 1.6 H Troponin I 0.14 H - ....Imaging Other: Image Reviewed (telemetry: ventricular paced rhythm) Problem List - Problems (1) AICD (automatic cardioverter/defibrillator) present Code(s): Z95.810 - PRESENCE OF AUTOMATIC (IMPLANTABLE) CARDIAC DEFIBRILLATOR (2) Acute on chronic combined systolic and diastolic CHF, NYHA class 3 Assessment/Plan: Carvedilol was increased today to 12.5 mg bid; took 1st dose; ambulated well. Had a brief bout of dizziness, which he believes may be related to diarrhea he has been having today. systollic BP 88-->105 mmHg. Continue spironolactone 25 mg daily. Pt is unable to take ACEI or ARB (angioedema resulted). F/u BUN/Cr, electrolytes, daily weight, Is and Os. Code(s): I50.43 - ACUTE ON CHRONIC COMBINED SYSTOLIC AND DIASTOLIC HRT FAIL (3) Acute on chronic renal failure Assessment/Plan: K+ 4.5-->4.7; BUN 34/1.6 Cr. Code(s): N17.9 - ACUTE KIDNEY FAILURE, UNSPECIFIED; N18.9 - CHRONIC KIDNEY DISEASE, UNSPECIFIED Qualifiers: (4) Anxiety and depression Assessment/Plan: on Paxil Code(s): F41.9 - ANXIETY DISORDER, UNSPECIFIED; F32.9 - MAJOR DEPRESSIVE DISORDER, SINGLE EPISODE, UNSPECIFIED (5) Aortic valve replaced Assessment/Plan: s/p TAVR 09/2018. s/p mitral valve repair. Code(s): Z95.2 - PRESENCE OF PROSTHETIC HEART VALVE
[2018-11-21] MEDS ORDERED: LOPERAMIDE HCL 2 MG CAPSULE PO PRN (15:57)
--- NOTE | 2018-11-21 15:57 | PN ---
Progress Note (short form) - Note Progress Note: ^^^^^^^^^^^^^^ medical ^^^^^^^^^^^^^^^ Current Medications Aspirin (Ecotrin -) 81 mg PO DAILY [facility] Last Admin: 11/21/18 10:30 Dose: 81 mg Carvedilol (Coreg -) 12.5 mg PO BID [facility] Last Admin: 11/21/18 10:31 Dose: 12.5 mg Docusate Sodium (Colace -) 100 mg PO HS [facility] Last Admin: 11/20/18 21:20 Dose: 100 mg Levothyroxine Sodium (Synthroid -) 75 mcg PO DAILY@0700 [facility] Last Admin: 11/21/18 06:17 Dose: 75 mcg Paroxetine HCl (Paxil -) 10 mg PO DAILY [facility] Last Admin: 11/21/18 10:31 Dose: 10 mg Spironolactone (Aldactone -) 25 mg PO DAILY [facility] Last Admin: 11/21/18 10:31 Dose: 25 mg Laboratory Results - last 24 hr 11/21/18 06:20 Sodium 138 Potassium 4.7 Chloride 107 Carbon Dioxide 22 Anion Gap 9 BUN 34 H Creatinine 1.6 H Creat Clearance w eGFR 41.59 Random Glucose 82 Calcium 8.9 Creatine Kinase 31 Troponin I 0.14 H Vital Signs Temperature 98.2 F 11/21/18 13:40 Pulse Rate 75 11/21/18 15:07 Respiratory Rate 20 11/21/18 15:07 Blood Pressure 105/70 11/21/18 15:07 O2 Sat by Pulse Oximetry (%) 96 11/21/18 09:44 CC: had 2 loose BM's today, no abd cramps; n-v ````````````````````````````````` skin--good color heart--irreg lungs--clear abd--soft ext--no edema appreciated neuro--alert, in good spirits; coherent; moves all Ext normally; speech clear; no focal deficits `````````````````````````````````````` Summ > AbnL stools--loose BMs; no watery BM described and with no other GI Sx. PLAN: stop Colace; Prn Imodium > Decomp CHF--LVdysf; BP has been low but has stabilized on current agents; took 1st dose of coreg 12.5 this AM; was ambulated by PT for brief period . PLAN : cont current meds and Coreg at current dose unless not tolerated; off lasix. > CRI--overall, numerically stable. > ATF--paroxysmal? noted while in [facility] post procedure; he still does not wish to take a-c > high Trop--chronically high; likely 2nd chronic LVdysf (see echo); levels trending down. > Lt Carotid occlusion--stable chronic; SIDNEY & vertebrals okay; Lipids in good range; cont antiPlt meds > Subcut skin nodules--longstanding & stable; likely lipomatous lesions > abrasion skin--of Rt elbow; area cleaned & dressed >hypothyroidism--clinically euthyroid ~~~~~~~~~~~~~~~~~~~ Dr Desai Problem List - Problems (1) Acute exacerbation of CHF (congestive heart failure) Code(s): I50.9 - HEART FAILURE, UNSPECIFIED Qualifiers: Heart failure type: combined systolic and diastolic Qualified Code(s): I50.43 - Acute on chronic combined systolic (congestive) and diastolic ( congestive) heart failure (2) AICD (automatic cardioverter/defibrillator) present Code(s): Z95.810 - PRESENCE OF AUTOMATIC (IMPLANTABLE) CARDIAC DEFIBRILLATOR (3) Aortic valve replaced Code(s): Z95.2 - PRESENCE OF PROSTHETIC HEART VALVE (4) Chronic renal insufficiency Code(s): N18.9 - CHRONIC KIDNEY DISEASE, UNSPECIFIED Qualifiers: Chronic kidney disease stage: stage 3 (moderate) Qualified Code(s): N18.3 - Chronic kidney disease, stage 3 (moderate) (5) Elevated troponin Code(s): R74.8 - ABNORMAL LEVELS OF OTHER SERUM ENZYMES (6) Arteriosclerotic heart disease (ASHD) Code(s): I25.10 - ATHSCL HEART DISEASE OF [place] CORONARY ARTERY W/O ANG PCTRS (7) Carotid occlusion, left Code(s): I65.22 - OCCLUSION AND STENOSIS OF LEFT CAROTID ARTERY (8) Anxiety and depression Code(s): F41.9 - ANXIETY DISORDER, UNSPECIFIED; F32.9 - MAJOR DEPRESSIVE DISORDER, SINGLE EPISODE, UNSPECIFIED (9) Hypothyroid Code(s): E03.9 - HYPOTHYROIDISM, UNSPECIFIED Qualifiers: Hypothyroidism type: acquired Qualified Code(s): E03.9 - Hypothyroidism, unspecified (10) PAD (peripheral artery disease) Code(s): I73.9 - PERIPHERAL VASCULAR DISEASE, UNSPECIFIED (11) Hypotension Code(s): I95.9 - HYPOTENSION, UNSPECIFIED Qualifiers: Hypotension type: other hypotension type Qualified Code(s): I95.89 - Other hypotension (12) Elderly person living alone Code(s): Z60.2 - PROBLEMS RELATED TO LIVING ALONE
[2018-11-22] MEDS: LEVOTHYROXINE NA 75 MCG TABLET (FP) PO SCH (06:07)
[2018-11-22 07:20] LABS: ANION GAP 8 MMOL/L (8-16); BLOOD UREA NITROGEN 36 mg/dL (7-18); CALCIUM 8.8 mg/dL (8.5-10.1); CHLORIDE 108 mmol/L (98-107); CO2 20 mmol/L (21-32); CREATININE 1.5 mg/dL (0.55-1.3); GLUCOSE,RANDOM 82 mg/dL (74-106); POTASSIUM 4.3 mmol/L (3.5-5.1); SODIUM 136 mmol/L (136-145)
[2018-11-22] MEDS ORDERED: PT OWN MED DRAWER 7, Y5N ONE ×2 (09:13→11:01)
[2018-11-22] MEDS: SPIRONOLACTONE 25 MG TABLET (FP) PO SCH (10:10)
[2018-11-22] MEDS: CARVEDILOL 12.5 MG TABLET (FP) PO SCH ×2 (10:10→22:25)
[2018-11-22] MEDS: ASPIRIN COATED 81 MG TABLET.EC PO SCH (10:10)
--- NOTE | 2018-11-22 10:47 | PN ---
Progress Note, Physician History of Present Illness: PMH s/p bio AVR #25 pericardial aortic valve and MV repair P2,P3 quadrangular resection [facility] dr. Prasad 2005 valve in valve TAVR 10-04-18 [facility] Ongoing medical problems [employer] AICD BIvi-pacing 2015 Dr. Dionte Oconnell HTN Hyperlipidemia LAFB October 24, 2014 PAD left ICA occlusion PPM DDD [employer] October 2014 RBBB October 24, 2014 RV pacing induced CMP / systolic CHF TIA Trifascicular block , profound sinus bradycardia at 27. 2014 - Current Medication List Current Medications: Active Medications Aspirin (Ecotrin -) 81 mg PO DAILY [facility] Last Admin: 11/22/18 10:10 Dose: 81 mg Carvedilol (Coreg -) 12.5 mg PO BID [facility] Last Admin: 11/22/18 10:10 Dose: 12.5 mg Levothyroxine Sodium (Synthroid -) 75 mcg PO DAILY@0700 [facility] Last Admin: 11/22/18 06:07 Dose: 75 mcg Loperamide HCl (Imodium -) 2 mg PO Q8H PRN PRN Reason: DIARRHEA Paroxetine HCl (Paxil -) 10 mg PO DAILY [facility] Last Admin: 11/21/18 10:31 Dose: 10 mg Spironolactone (Aldactone -) 25 mg PO DAILY [facility] Last Admin: 11/22/18 10:10 Dose: 25 mg - Objective Vital Signs: Vital Signs Temperature 97.3 F L 11/22/18 10:08 Pulse Rate 75 11/22/18 10:08 Respiratory Rate 16 11/22/18 10:08 Blood Pressure 99/64 11/22/18 10:08 O2 Sat by Pulse Oximetry (%) 96 11/21/18 22:00 Eyes: Yes: WNL, Conjunctiva Clear, EOM Intact HENT: Yes: WNL, Atraumatic, Normocephalic Neck: Yes: WNL, Supple, Trachea Midline Cardiovascular: Yes: WNL, Regular Rate and Rhythm Respiratory: Yes: WNL, Regular, CTA Bilaterally Gastrointestinal: Yes: WNL, Normal Bowel Sounds Genitourinary: Yes: WNL Musculoskeletal: Yes: WNL Extremities: Yes: WNL Edema: No Integumentary: Yes: WNL Neurological: Yes: WNL, Alert, Oriented ...Motor Strength: WNL Psychiatric: Yes: WNL Labs: CBC, BMP 11/09/18 14:45 11/22/18 05:30 INR, PTT INR 1.13 (0.83-1.09) H 11/09/18 14:50 Assessment/Plan Problems (1) AICD (automatic cardioverter/defibrillator) present Code(s): Z95.810 - PRESENCE OF AUTOMATIC (IMPLANTABLE) CARDIAC DEFIBRILLATOR (2) Acute on chronic combined systolic and diastolic CHF, NYHA class 3 Assessment/Plan: Carvedilol was increased yesterday to 12.5 mg bid; ambulated well. Had a brief bout of dizziness, which he believes may be related to diarrhea he has been having today. systollic BP 88-->105 mmHg. Continue spironolactone 25 mg daily. may need Lasix if tolerates Pt is unable to take ACEI or ARB (angioedema resulted). F/u BUN/Cr, electrolytes, daily weight, Is and Os. Code(s): I50.43 - ACUTE ON CHRONIC COMBINED SYSTOLIC AND DIASTOLIC HRT FAIL (3) Acute on chronic renal failure Assessment/Plan: renal fx and K stable Code(s): N17.9 - ACUTE KIDNEY FAILURE, UNSPECIFIED; N18.9 - CHRONIC KIDNEY DISEASE, UNSPECIFIED Qualifiers: (4) Anxiety and depression Assessment/Plan: on Paxil Code(s): F41.9 - ANXIETY DISORDER, UNSPECIFIED; F32.9 - MAJOR DEPRESSIVE DISORDER, SINGLE EPISODE, UNSPECIFIED (5) Aortic valve replaced Assessment/Plan: s/p TAVR 09/2018. s/p mitral valve repair. Code(s): Z95.2 - PRESENCE OF PROSTHETIC HEART VALVE
[2018-11-22] MEDS: PARoxetine HCL 10 MG TABLET PO SCH (11:41)
--- NOTE | 2018-11-22 12:59 | PN ---
Progress Note (short form) - Note Progress Note: @@@@@@@@@@@@@@@@@ medical @@@@@@@@@@@@@@@@ Current Medications Aspirin (Ecotrin -) 81 mg PO DAILY [facility] Last Admin: 11/22/18 10:10 Dose: 81 mg Carvedilol (Coreg -) 12.5 mg PO BID [facility] Last Admin: 11/22/18 10:10 Dose: 12.5 mg Levothyroxine Sodium (Synthroid -) 75 mcg PO DAILY@0700 [facility] Last Admin: 11/22/18 06:07 Dose: 75 mcg Loperamide HCl (Imodium -) 2 mg PO Q8H PRN PRN Reason: DIARRHEA Paroxetine HCl (Paxil -) 10 mg PO DAILY [facility] Last Admin: 11/22/18 11:41 Dose: 10 mg Spironolactone (Aldactone -) 25 mg PO DAILY [facility] Last Admin: 11/22/18 10:10 Dose: 25 mg Laboratory Results - last 24 hr 11/22/18 05:30 Sodium 136 Potassium 4.3 Chloride 108 H Carbon Dioxide 20 L Anion Gap 8 BUN 36 H Creatinine 1.5 H Creat Clearance w eGFR 44.81 Random Glucose 82 Calcium 8.8 Creatine Kinase 27 Troponin I 0.11 H Vital Signs Temperature 97.3 F L 11/22/18 10:08 Pulse Rate 75 11/22/18 10:08 Respiratory Rate 16 11/22/18 10:08 Blood Pressure 99/64 11/22/18 10:08 O2 Sat by Pulse Oximetry (%) 99 11/22/18 10:00 CC: some lightheaedness when standing ````````````````````````````````` skin--good color heart--irreg lungs--clear abd--soft ext--no edema appreciated neuro--alert, in good spirits; coherent; moves all Ext normally; speech clear; no focal deficits; gait stable `````````````````````````````````````` Summ > AbnL stools--lseem to have resolved PLAN: stopped Colace; Prn Imodium > Decomp CHF--LVdysf; BP has been low but has stabilized on current agents; to cont coreg 12.5 BID; I ambulated pt for approx 50Ft walked slowly but did not feel dizzy . PLAN: cont current meds and Coreg at current dose unless not tolerated; off lasix. > CRI--overall, numerically stable. > ATF--paroxysmal? noted while in [facility] [place]; he still does not wish to take a-c > high Trop--chronically high; likely 2nd chronic LVdysf (see echo); levels trending down. > Lt Carotid occlusion--stable chronic; SIDNEY & vertebrals okay; Lipids in good range; cont antiPlt meds > Subcut skin nodules--longstanding & stable; likely lipomatous lesions > abrasion skin--of Rt elbow; area cleaned & dressed >hypothyroidism--clinically euthyroid ~~~~~~~~~~~~~~~~~~~ Dr Desai Problem List - Problems (1) Acute exacerbation of CHF (congestive heart failure) Code(s): I50.9 - HEART FAILURE, UNSPECIFIED Qualifiers: Heart failure type: combined systolic and diastolic Qualified Code(s): I50.43 - Acute on chronic combined systolic (congestive) and diastolic ( congestive) heart failure (2) AICD (automatic cardioverter/defibrillator) present Code(s): Z95.810 - PRESENCE OF AUTOMATIC (IMPLANTABLE) CARDIAC DEFIBRILLATOR (3) Aortic valve replaced Code(s): Z95.2 - PRESENCE OF PROSTHETIC HEART VALVE (4) Chronic renal insufficiency Code(s): N18.9 - CHRONIC KIDNEY DISEASE, UNSPECIFIED Qualifiers: Chronic kidney disease stage: stage 3 (moderate) Qualified Code(s): N18.3 - Chronic kidney disease, stage 3 (moderate) (5) Elevated troponin Code(s): R74.8 - ABNORMAL LEVELS OF OTHER SERUM ENZYMES (6) Arteriosclerotic heart disease (ASHD) Code(s): I25.10 - ATHSCL HEART DISEASE OF [place] CORONARY ARTERY W/O ANG PCTRS (7) Carotid occlusion, left Code(s): I65.22 - OCCLUSION AND STENOSIS OF LEFT CAROTID ARTERY (8) Anxiety and depression Code(s): F41.9 - ANXIETY DISORDER, UNSPECIFIED; F32.9 - MAJOR DEPRESSIVE DISORDER, SINGLE EPISODE, UNSPECIFIED (9) Hypothyroid Code(s): E03.9 - HYPOTHYROIDISM, UNSPECIFIED Qualifiers: Hypothyroidism type: acquired Qualified Code(s): E03.9 - Hypothyroidism, unspecified (10) PAD (peripheral artery disease) Code(s): I73.9 - PERIPHERAL VASCULAR DISEASE, UNSPECIFIED (11) Hypotension Code(s): I95.9 - HYPOTENSION, UNSPECIFIED Qualifiers: Hypotension type: other hypotension type Qualified Code(s): I95.89 - Other hypotension (12) Elderly person living alone Code(s): Z60.2 - PROBLEMS RELATED TO LIVING ALONE
[2018-11-22] MEDS: ROSUVASTATIN CA 5 MG TABLET (FP) PO SCH (22:25)
[2018-11-23] MEDS: LEVOTHYROXINE NA 75 MCG TABLET (FP) PO SCH (06:27)
[2018-11-23 06:45] LABS: HEMOGLOBIN 12.4 GM/dL (11.7-16.9); MCH 29.2 pg (25.7-33.7); MCHC 31.8 g/dl (32.0-35.9); MEAN PLT VOLUME 8.1 fl (7.5-11.1); PLATELET COUNT 194 K/MM3 (134-434); RBC 4.25 M/mm3 (4.00-5.60); RDW 16.3 % (11.9-15.9); WHITE BLOOD COUNT 5.9 K/mm3 (4.0-10.0)
[2018-11-23 07:18] LABS: ANION GAP 7 MMOL/L (8-16); BLOOD UREA NITROGEN 30 mg/dL (7-18); CALCIUM 8.9 mg/dL (8.5-10.1); CHLORIDE 109 mmol/L (98-107); CO2 21 mmol/L (21-32); CREATININE 1.6 mg/dL (0.55-1.3); GLUCOSE,RANDOM 89 mg/dL (74-106); POTASSIUM 4.3 mmol/L (3.5-5.1); SODIUM 137 mmol/L (136-145)
[2018-11-23] MEDS: CARVEDILOL 12.5 MG TABLET (FP) PO SCH ×3 (10:43→21:34)
[2018-11-23] MEDS: SPIRONOLACTONE 25 MG TABLET (FP) PO SCH ×2 (10:44→15:32)
[2018-11-23] MEDS: ASPIRIN COATED 81 MG TABLET.EC PO SCH (10:44)
[2018-11-23] MEDS: PARoxetine HCL 10 MG TABLET PO SCH (10:45)
[2018-11-23] MEDS ORDERED: PT OWN MED DRAWER 7, Y5N ONE (10:47)
[2018-11-23 12:34] VITALS: BMI 24.7
--- NOTE | 2018-11-23 16:08 | PN ---
Progress Note (short form) - Note Progress Note: medical Current Medications Aspirin (Ecotrin -) 81 mg PO DAILY [facility] Last Admin: 11/23/18 10:44 Dose: 81 mg Carvedilol (Coreg -) 12.5 mg PO BID [facility] Last Admin: 11/23/18 15:32 Dose: 12.5 mg Levothyroxine Sodium (Synthroid -) 75 mcg PO DAILY@0700 [facility] Last Admin: 11/23/18 06:27 Dose: 75 mcg Loperamide HCl (Imodium -) 2 mg PO Q8H PRN PRN Reason: DIARRHEA Paroxetine HCl (Paxil -) 10 mg PO DAILY [facility] Last Admin: 11/23/18 10:45 Dose: 10 mg Rosuvastatin Calcium (Crestor -) 5 mg PO HS [facility] Last Admin: 11/22/18 22:25 Dose: 5 mg Spironolactone (Aldactone -) 25 mg PO DAILY [facility] Last Admin: 11/23/18 15:32 Dose: 25 mg Laboratory Results - last 24 hr 11/23/18 11/23/18 05:30 05:30 WBC 5.9 RBC 4.25 Hgb 12.4 Hct 39.0 MCV 92.0 MCH 29.2 MCHC 31.8 L RDW 16.3 H Plt Count 194 D MPV 8.1 Sodium 137 Potassium 4.3 Chloride 109 H Carbon Dioxide 21 Anion Gap 7 L BUN 30 H Creatinine 1.6 H Creat Clearance w eGFR 41.59 Random Glucose 89 Calcium 8.9 Creatine Kinase 26 Troponin I 0.08 H Vital Signs Temperature 97.9 F 11/23/18 14:00 Pulse Rate 75 11/23/18 14:00 Respiratory Rate 20 11/23/18 14:00 Blood Pressure 88/62 L 11/23/18 14:00 O2 Sat by Pulse Oximetry (%) 97 11/23/18 08:56 CC: some lightheaedness this AM ````````````````````````````````` skin--good color heart--irreg lungs--clear abd--soft ext--no edema appreciated neuro--alert, in good spirits; coherent; moves all Ext normally; speech clear; no focal deficits; gait stable (walked 50ft) `````````````````````````````````````` Summ > AbnL stools--had lose BM this AM; but not now. PLAN: stopped Colace; Prn Imodium > Decomp CHF--LVdysf; BP has been low but has stabilized on current agents; to cont coreg 12.5 BID (dose held this AM due to low SBP in low 80's); Pt ambulated pt for approx 50Ft this afternoon, walked slowly but did not feel dizzy . PLAN: cont current meds and Coreg at current dose unless not tolerated; off lasix. Will hope to d/c to [facility] cardiac rehab as he has much improved and has shown to have better exercise tolerance on higher dose BB; thus fee he would be a better candidate for cardio-rehab. > CRI--overall, numerically stable. > ATF--paroxysmal? [facility]; he still does not wish to take a-c > high Trop--chronically high; likely 2nd chronic LVdysf (see echo); levels trending down to near NL. > Lt Carotid occlusion--stable chronic; SIDNEY & vertebrals okay; Lipids in good range; cont antiPlt meds > Subcut skin nodules--longstanding & stable; likely lipomatous lesions > abrasion skin--of Rt elbow; area cleaned & dressed > hypothyroidism--clinically euthyroid ~~~~~~~~~~~~~~~~~~~ Dr Desai Problem List - Problems (1) Acute exacerbation of CHF (congestive heart failure) Code(s): I50.9 - HEART FAILURE, UNSPECIFIED Qualifiers: Heart failure type: combined systolic and diastolic Qualified Code(s): I50.43 - Acute on chronic combined systolic (congestive) and diastolic ( congestive) heart failure (2) AICD (automatic cardioverter/defibrillator) present Code(s): Z95.810 - PRESENCE OF AUTOMATIC (IMPLANTABLE) CARDIAC DEFIBRILLATOR (3) Aortic valve replaced Code(s): Z95.2 - PRESENCE OF PROSTHETIC HEART VALVE (4) Chronic renal insufficiency Code(s): N18.9 - CHRONIC KIDNEY DISEASE, UNSPECIFIED Qualifiers: Chronic kidney disease stage: stage 3 (moderate) Qualified Code(s): N18.3 - Chronic kidney disease, stage 3 (moderate) (5) Elevated troponin Code(s): R74.8 - ABNORMAL LEVELS OF OTHER SERUM ENZYMES (6) Arteriosclerotic heart disease (ASHD) Code(s): I25.10 - ATHSCL HEART DISEASE OF [place] CORONARY ARTERY W/O ANG PCTRS (7) Carotid occlusion, left Code(s): I65.22 - OCCLUSION AND STENOSIS OF LEFT CAROTID ARTERY (8) Anxiety and depression Code(s): F41.9 - ANXIETY DISORDER, UNSPECIFIED; F32.9 - MAJOR DEPRESSIVE DISORDER, SINGLE EPISODE, UNSPECIFIED (9) Hypothyroid Code(s): E03.9 - HYPOTHYROIDISM, UNSPECIFIED Qualifiers: Hypothyroidism type: acquired Qualified Code(s): E03.9 - Hypothyroidism, unspecified (10) PAD (peripheral artery disease) Code(s): I73.9 - PERIPHERAL VASCULAR DISEASE, UNSPECIFIED (11) Hypotension Code(s): I95.9 - HYPOTENSION, UNSPECIFIED Qualifiers: Hypotension type: other hypotension type Qualified Code(s): I95.89 - Other hypotension (12) Elderly person living alone Code(s): Z60.2 - PROBLEMS RELATED TO LIVING ALONE
[2018-11-23] MEDS: ROSUVASTATIN CA 5 MG TABLET (FP) PO SCH (21:43)
[2018-11-24] MEDS: LEVOTHYROXINE NA 75 MCG TABLET (FP) PO SCH (06:18)
[2018-11-24 06:46] LABS: ANION GAP 8 MMOL/L (8-16); BLOOD UREA NITROGEN 30 mg/dL (7-18); CHLORIDE 110 mmol/L (98-107); CO2 20 mmol/L (21-32); CREATININE 1.6 mg/dL (0.55-1.3); GLUCOSE,RANDOM 88 mg/dL (74-106); POTASSIUM 4.4 mmol/L (3.5-5.1); SODIUM 137 mmol/L (136-145)
--- NOTE | 2018-11-24 07:06 | PN ---
Progress Note, Physician Chief Complaint: Pt A&Ox3.NO chest pain, dyspnea, or dizziness. Mild abdominal discomfort. History of Present Illness: Pt is an 83 yr old white man with significant PMHx of HTN, severe systolic CHF , s/p TAVR 09/2018, HTN, CAD (s/p pacemaker/defibrillator implantation, last interrogated today and poor ECHO done in office today), Gout, OA, Hypothyroidism , and anxiety, who presents to the emergency department with, 2 days of worsening shortness of breath. He was seen at his cardiologists office today who advised him to report to the ED. Patient was recently transferred to recent transfer to [facility] for aortic valve replacement, patient notes symptoms are similar to when he needed his valve replacement and CHF decompensation. Denies fever, chills, chest pain, palpitation, dizziness, weakness, N, V, D, abdominal pain, bladder and bowel problems, leg swelling, No sick contacts or travel. No new changes in medications. Allergies: NKA Past Medical History: HTN, CHF, HTN, CAD (s/p pacemaker/defibrillator implantation, last interrogated today and poor ECHO done in office today), Gout , OA, Hypothyroidism, and anxiety Social history: Lives with family. No smoking. No alcohol. No illicit drugs. Surgical history: Hernia repair, Aortic/Mitral valve replacement; CABG; AICD, left knee arthroscopic surgery. PMD: Dr. Desai Balance Engineer: Dr. Kidd s/p bio AVR #25 pericardial aortic valve and MV repair P2,P3 quadrangular resection [facility] dr. Prasad 2004 valve in valve TAVR 10-04-18 [facility] Ongoing medical problems [employer] AICD BIvi-pacing 2015 Dr. 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 2014 - Current Medication List Current Medications: Active Medications Aspirin (Ecotrin -) 81 mg PO DAILY [facility] Last Admin: 11/23/18 10:44 Dose: 81 mg Carvedilol (Coreg -) 12.5 mg PO BID [facility] Last Admin: 11/23/18 21:34 Dose: 12.5 mg Levothyroxine Sodium (Synthroid -) 75 mcg PO DAILY@0700 [facility] Last Admin: 11/24/18 06:18 Dose: 75 mcg Loperamide HCl (Imodium -) 2 mg PO Q8H PRN PRN Reason: DIARRHEA Paroxetine HCl (Paxil -) 10 mg PO DAILY [facility] Last Admin: 11/23/18 10:45 Dose: 10 mg Rosuvastatin Calcium (Crestor -) 5 mg PO HS [facility] Last Admin: 11/23/18 21:43 Dose: 5 mg Spironolactone (Aldactone -) 25 mg PO DAILY [facility] Last Admin: 11/23/18 15:32 Dose: 25 mg - Objective Vital Signs: Vital Signs Temperature 98.0 F 11/24/18 01:20 Pulse Rate 75 11/24/18 01:20 Respiratory Rate 20 11/24/18 01:20 Blood Pressure 94/64 11/24/18 01:20 O2 Sat by Pulse Oximetry (%) 97 11/23/18 22:00 Constitutional: Yes: Calm Eyes: Yes: WNL HENT: Yes: WNL Neck: Yes: WNL Cardiovascular: Yes: S1, S2 (split) Respiratory: Yes: WNL Gastrointestinal: Yes: Soft. No: Tenderness ...Rectal Exam: Yes: Deferred Genitourinary: No: Anuria Breast(s): Yes: WNL Musculoskeletal: Yes: Muscle Weakness Edema: No (compression stockin) Peripheral Pulses WNL: No Peripheral Pulses: Left Doralis Pedis: 1+, Right Dorsalis Pedis: 1+ Integumentary: Yes: WNL Neurological: Yes: Alert, Oriented Psychiatric: Yes: Alert, Oriented, Other (anxiety) Labs: CBC, BMP 11/23/18 05:30 11/24/18 05:30 INR, PTT INR 1.13 (0.83-1.09) H 11/09/18 14:50 Abnormal Lab Results 11/23/18 11/24/18 05:30 05:30 Chloride 109 H 110 H Carbon Dioxide 20 L Anion Gap 7 L BUN 30 H 30 H Creatinine 1.6 H 1.6 H Troponin I 0.08 H Problem List - Problems (1) AICD (automatic cardioverter/defibrillator) present Code(s): Z95.810 - PRESENCE OF AUTOMATIC (IMPLANTABLE) CARDIAC DEFIBRILLATOR (2) Acute on chronic combined systolic and diastolic CHF, NYHA class 3 Assessment/Plan: Able to walk up and down hallway slowly more than once today with assistance. Tolerates systolic BP in the 80s mmHg without dizziness, SOB, change in mental status. No JVD. BUN/Cr adn K+ have not changed appreciably since [id number] of these medications. Continue carvedilol 12.5 mg bid, spironolactone 25 mg qd. Low-normal BP mitigates against starting hydralazine + Imdur. F/u daily weight, Is and Os, BUN/Cr, electrolytes. Code(s): I50.43 - ACUTE ON CHRONIC COMBINED SYSTOLIC AND DIASTOLIC HRT FAIL (3) Acute on chronic renal failure Assessment/Plan: K+ 4.5-->4.3; BUN 30/1.6 Cr. Code(s): N17.9 - ACUTE KIDNEY FAILURE, UNSPECIFIED; N18.9 - CHRONIC KIDNEY DISEASE, UNSPECIFIED Qualifiers: (4) Anxiety and depression Assessment/Plan: on Paxil Code(s): F41.9 - ANXIETY DISORDER, UNSPECIFIED; F32.9 - MAJOR DEPRESSIVE DISORDER, SINGLE EPISODE, UNSPECIFIED (5) Aortic valve replaced Assessment/Plan: s/p TAVR 09/2018. s/p mitral valve repair. Code(s): Z95.2 - PRESENCE OF PROSTHETIC HEART VALVE (6) Physical medicine and rehabilitation procedures Assessment/Plan: Mr. Willett repeatedly states he wants to walk more and regain strength and stamina.He had been at [facility], and and wants to return there. He has severely reduced LVEF. He has tolerated gradual increased in carvedilol and spironolactone well symptom-cunningham; systolic BP varies from the low 80s to 110 mmHg. From a cardiac perspective, he may restart the [place] rehabilitation program. Code(s): [id number] - (7) Hyperlipidemia Assessment/Plan: On rosuvastatin; f/u lipid levels. Code(s): E78.5 - HYPERLIPIDEMIA, UNSPECIFIED Qualifiers:
[2018-11-24 08:12] LABS: MAGNESIUM 2.2 mg/dL (1.8-2.4)
[2018-11-24] MEDS ORDERED: PT OWN MED DRAWER 7, Y5N ONE (10:10)
[2018-11-24] MEDS: CARVEDILOL 12.5 MG TABLET (FP) PO SCH (11:22)
[2018-11-24] MEDS: PARoxetine HCL 10 MG TABLET PO SCH (11:22)
[2018-11-24] MEDS: ASPIRIN COATED 81 MG TABLET.EC PO SCH (11:22)
[2018-11-24] MEDS: SPIRONOLACTONE 25 MG TABLET (FP) PO SCH (11:22)
[2018-11-24 15:31] VITALS: BP 96/58; PULSE 77; TEMP 98.6
--- NOTE | 2018-11-24 15:43 | DS ---
Physical Examination Vital Signs: Vital Signs Temperature 98.6 F 11/24/18 14:00 Pulse Rate 77 11/24/18 14:00 Respiratory Rate 20 11/24/18 09:00 Blood Pressure 96/58 L 11/24/18 14:00 O2 Sat by Pulse Oximetry (%) 96 11/24/18 09:00 Constitutional: Yes: Well Nourished, No Distress Eyes: Yes: Conjunctiva Clear, EOM Intact HENT: Yes: WNL Neck: Yes: WNL Cardiovascular: Yes: Bradycardia Respiratory: Yes: CTA Bilaterally Gastrointestinal: Yes: Normal Bowel Sounds, Soft Extremities: Yes: WNL Edema: No Peripheral Pulses WNL: No (diminshed) Integumentary: Yes: WNL Neurological: Yes: WNL ...Motor Strength: WNL Psychiatric: Yes: WNL Labs: CBC, BMP 11/23/18 05:30 11/24/18 05:30 Discharge Summary Reason For Visit: ACUTE EXACERBATION OF CHF Current Active Problems CHF; (congestive heart failure), NYHA class III (Acute) Elderly person living alone (Acute) s/p TAVR ATF= (he does not wish to go on NOAC) Hx of renal insufficiency (avg Bun= under 40; Cr= under 2.0) on senior care antiPlt agents lipidemia Lt carotid stenosis PAD OA knees lipomas Hypothroidism Depression AICD status Other Procedures: echo Hospital Course: 83yo M with PMH of diastolic CHF- class 3 (s/p AICD, CAD s/p multiple valve procedures, CKD- stage 2, hypothyroid, PAD) presenting with shortness of breath. 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 It was then discovered that he'd been inadvertently taking 2 types of BB (Toprol & Coreg) [facility]where he was [facility] sent for Cardiac rehab from [facility]-- where he under went TAVR) . He was seen by me on 11/03/18 and felt fairly well. His SBP was about 115; his breathing was unlabored. However, he began to again feel weak approx 1 day CONTOUR STITCHER. ON admission his BNP and Troponin were both high. He was initially given IV Lasix and he seem to be volume overloaded clinically; he responded well, but BP fluctuated to the point that he cardiac meds had to be constantly adjusted. He was finally able to tolerate up titration of the Coreg to 12.5mg BID as well as use of Aldactone. Lasix was discontinued as he was deemed to be normovolemic; he was able to ambulate short distances with minimal effort. His Bun/ Cr was high but remained stable. TSH was in good range. He denied any CP; n-v, palpitations, dizziness. PLan was for added Cardiac rehab. Condition: Guarded - Instructions Diet, Activity, Other Instructions: low potassium diet; no added salt; no salty soups Cont current cardiac meds do NOT hold Coreg unless SBP under 85 or if significantly symptomtic Try to keep him on 12.5 BID of Coreg, and if does NOT tolerate reduce to 6.25 BID Pt for ambulation and stair climbing Will need VNS when ready for D/c Disposition: [facility] F[facility]ILITY - Home Medications Comprehensive Discharge Medication List: Ambulatory Orders Aspirin [ASA -] 81 mg PO DAILY 12/19/15 Clopidogrel Bisulfate [Plavix -] 75 mg PO DAILY 12/19/15 Paroxetine HCl [Paxil -] 20 mg PO DAILY 12/19/15 Rosuvastatin [Crestor -] 40 mg PO HS 12/19/15 Carvedilol [Coreg -] 12.5 mg PO BID tablet 11/24/18 Levothyroxine [Synthroid -] 75 mcg PO DAILY@0700 tablet 11/24/18 Spironolactone [Aldactone -] 25 mg PO DAILY tablet 11/24/18
--- NOTE | 2018-11-24 16:02 | PN ---
Progress Note, Physician Chief Complaint: Pt A&Ox3.NO chest pain, dyspnea, or dizziness. He thinkds the abdominal discomfort he has from time to time "comes from eating egg salad. History of Present Illness: Pt is an 83 yr old white man with significant PMHx of HTN, severe systolic CHF , s/p TAVR 09/2018, HTN, CAD (s/p pacemaker/defibrillator implantation, last interrogated today and poor ECHO done in office today), Gout, OA, Hypothyroidism , and anxiety, who presents to the emergency department with, 2 days of worsening shortness of breath. He was seen at his cardiologists office today who advised him to report to the ED. Patient was recently transferred to recent transfer to [facility] for aortic valve replacement, patient notes symptoms are similar to when he needed his valve replacement and CHF decompensation. Denies fever, chills, chest pain, palpitation, dizziness, weakness, N, V, D, abdominal pain, bladder and bowel problems, leg swelling, No sick contacts or travel. No new changes in medications. Allergies: NKA Past Medical History: HTN, CHF, HTN, CAD (s/p pacemaker/defibrillator implantation, last interrogated today and poor ECHO done in office today), Gout , OA, Hypothyroidism, and anxiety Social history: Lives with family. No smoking. No alcohol. No illicit drugs. Surgical history: Hernia repair, Aortic/Mitral valve replacement; CABG; AICD, left knee arthroscopic surgery. PMD: Dr. Desai Flight Engineer Manager: Dr. Kidd s/p bio AVR #25 pericardial aortic valve and MV repair P2,P3 quadrangular resection [facility] dr. Prasad 2004 valve in valve TAVR 10-04-18 [facility] Ongoing medical problems [employer] AICD BIvi-pacing 2015 Dr. 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 2014 - Current Medication List Current Medications: Active Medications Aspirin (Ecotrin -) 81 mg PO DAILY [facility] Last Admin: 11/24/18 11:22 Dose: 81 mg Carvedilol (Coreg -) 12.5 mg PO BID [facility] Last Admin: 11/24/18 11:22 Dose: 12.5 mg Levothyroxine Sodium (Synthroid -) 75 mcg PO DAILY@0700 [facility] Last Admin: 11/24/18 06:18 Dose: 75 mcg Loperamide HCl (Imodium -) 2 mg PO Q8H PRN PRN Reason: DIARRHEA Paroxetine HCl (Paxil -) 10 mg PO DAILY [facility] Last Admin: 11/24/18 11:22 Dose: 10 mg Rosuvastatin Calcium (Crestor -) 5 mg PO HS [facility] Last Admin: 11/23/18 21:43 Dose: 5 mg Spironolactone (Aldactone -) 25 mg PO DAILY [facility] Last Admin: 11/24/18 11:22 Dose: 25 mg - Objective Vital Signs: Vital Signs Temperature 98.6 F 11/24/18 14:00 Pulse Rate 77 11/24/18 14:00 Respiratory Rate 20 11/24/18 09:00 Blood Pressure 96/58 L 11/24/18 14:00 O2 Sat by Pulse Oximetry (%) 96 11/24/18 09:00 Constitutional: Yes: Calm Eyes: Yes: WNL HENT: Yes: WNL Neck: Yes: WNL Cardiovascular: Yes: S1, S2 (split) Respiratory: Yes: WNL Gastrointestinal: Yes: Soft ...Rectal Exam: Yes: Deferred Genitourinary: No: Anuria Breast(s): Yes: WNL Musculoskeletal: Yes: Muscle Weakness Extremities: Yes: Cool Edema: No Peripheral Pulses WNL: Yes Integumentary: Yes: WNL Labs: CBC, BMP 11/23/18 05:30 11/24/18 05:30 INR, PTT INR 1.13 (0.83-1.09) H 11/09/18 14:50 Problem List - Problems (1) AICD (automatic cardioverter/defibrillator) present Code(s): Z95.810 - PRESENCE OF AUTOMATIC (IMPLANTABLE) CARDIAC DEFIBRILLATOR (2) Acute on chronic combined systolic and diastolic CHF, NYHA class 3 Assessment/Plan: Able to walk up and down hallway slowly more than once today with assistance. Tolerates systolic BP in the 80s mmHg without dizziness, SOB, change in mental status. No JVD. BUN/Cr adn K+ have not changed appreciably since [id number] of these medications. Continue carvedilol 12.5 mg bid, spironolactone 25 mg qd. Low-normal BP mitigates against starting hydralazine + Imdur. F/u daily weight, Is and Os, BUN/Cr, electrolytes. Code(s): I50.43 - ACUTE ON CHRONIC COMBINED SYSTOLIC AND DIASTOLIC HRT FAIL (3) Acute on chronic renal failure Assessment/Plan: K+ 4.5-->4.3; BUN 30/1.6 Cr. Code(s): N17.9 - ACUTE KIDNEY FAILURE, UNSPECIFIED; N18.9 - CHRONIC KIDNEY DISEASE, UNSPECIFIED Qualifiers: (4) Anxiety and depression Assessment/Plan: on Paxil Code(s): F41.9 - ANXIETY DISORDER, UNSPECIFIED; F32.9 - MAJOR DEPRESSIVE DISORDER, SINGLE EPISODE, UNSPECIFIED (5) Aortic valve replaced Assessment/Plan: s/p TAVR 09/2018. s/p mitral valve repair. Code(s): Z95.2 - PRESENCE OF PROSTHETIC HEART VALVE (6) Physical medicine and rehabilitation procedures Assessment/Plan: Mr. Willett repeatedly states he wants to walk more and regain strength and stamina.He had been at [facility], and and wants to return there. He has severely reduced LVEF. He has tolerated gradual increased in carvedilol and spironolactone well symptom-cunningham; systolic BP varies from the low 80s to 110 mmHg. From a cardiac perspective, he may restart the [place] rehabilitation program. Code(s): [id number] - (7) Hyperlipidemia Assessment/Plan: On rosuvastatin; f/u lipid levels. Code(s): E78.5 - HYPERLIPIDEMIA, UNSPECIFIED Qualifiers:
== END 2018-11-24 16:33 | DRG 291 ==
LOC: JER 12:42 → JERBED 17:11 → J4W 20:23
PROVIDERS: ADMIT Internal Medicine; ATTEND Internal Medicine
DX: I13.0 Hypertensive heart and chronic kidney disease with heart failure and stage 1 through stage 4 chronic kidney disease, or unspecified chronic kidney disease (principal); I50.43 Acute on chronic combined systolic (congestive) and diastolic (congestive) heart failure; I45.3 Trifascicular block; N17.9 Acute kidney failure, unspecified; I65.22 Occlusion and stenosis of left carotid artery; I48.2 Chronic atrial fibrillation; I42.8 Other cardiomyopathies; E83.42 Hypomagnesemia; N18.3 Chronic kidney disease, stage 3 (moderate); Z95.810 Presence of automatic (implantable) cardiac defibrillator; Z95.4 Presence of other heart-valve replacement; Z95.1 Presence of aortocoronary bypass graft; I25.10 Atherosclerotic heart disease of native coronary artery without angina pectoris; E03.9 Hypothyroidism, unspecified; F41.9 Anxiety disorder, unspecified; M10.9 Gout, unspecified; Z86.73 Personal history of transient ischemic attack (TIA), and cerebral infarction without residual deficits; I73.9 Peripheral vascular disease, unspecified; I95.2 Hypotension due to drugs; F32.9 Major depressive disorder, single episode, unspecified; Z60.2 Problems related to living alone; D17.39 Benign lipomatous neoplasm of skin and subcutaneous tissue of other sites; M17.0 Bilateral primary osteoarthritis of knee
CPT/HCPCS: 36415; 70450-TC; 71045-TC-FY; 72100-TC-FY; 80048; 80053; 80061; 82550; 83036; 83721; 83735; 83880; 84439; 84443; 84484; 84550; 85025; 85027; 85610; 85730; 93005; 93010; 93306-TC; 93880-TC; 97116-GP; 97162-GP; 99285-25

== ENCOUNTER 2018-12-09 10:59 | Inpatient (IN) | payer OTHER, MEDICARE ==
[~2018-12-09 10:59] MED LIST: ceFAZolin SODIUM 1 GM VIAL IVPB ONE
[2018-12-09 11:09] VITALS: BMI 24.8
--- NOTE | 2018-12-09 11:55 | PDOC ---
History of Present Illness - History of Present Illness Initial Comments: 12/09/18 12:32 The patient is a 83 year old male, with a significant past medical history of HTN, CHF, HTN, CAD, Gout, OA, Hypothyroidism, and anxiety, who presents to the emergency department s/p mechanical fall. As per patient, he tripped and fell subsequently landing on his right right hip. He denies hitting his head/neck. He denies any LOC. He denies any recent fevers , chills, or dizziness. He denies any recent nausea, vomit, diarrhea or constipation. He denies any recent chest pain or shortness of breath. He denies any recent dysuria, frequency, urgency or hematuria. Allergies: sertraline, lisinopril, penicillins, Pravachol, Zocor Past surgical history: Hernia repair, Aortic/Mitral valve replacement; CABG; AICD, left knee arthroscopic surgery. Primary Care Physician: Dr. Desai Senior Administrator Support: Dr. Kidd <Micehl Love - Last Filed: 12/09/18 12:32> - General History Source: Patient Exam Limitations: No Limitations <Markell Anderson - Last Filed: 12/09/18 13:05> <Price Lozano - Last Filed: 12/09/18 13:21> - General Chief Complaint: Pain, Acute Stated Complaint: RIGHT HIP PAIN Time Seen by Provider: 12/09/18 11:32 Past History <Michel Love - Last Filed: 12/09/18 12:32> - Past Medical History Anemia: No Asthma: No Cancer: No Cardiac Disorders: Yes (AV&MV repair) CVA: Yes (TIA 10 yrs ago) COPD: No CHF: Yes Dementia: No Diabetes: No GI Disorders: No Disorders: No HTN: Yes Hypercholesterolemia: Yes Liver Disease: No Psychiatric Problems: Yes (Anxiety ) Seizures: No Thyroid Disease: Yes (Hypothyroid) - Surgical History Abdominal Surgery: No Appendectomy: No Cardiac Surgery: Yes (Aortic/Mitral valve replacement; CABG; AICD) Cholecystectomy: No Lung Surgery: No Neurologic Surgery: No Orthopedic Surgery: Yes (Left knee arthoscopy) - Immunization History Immunization Up to Date: Yes - Suicide/Smoking/Psychosocial Hx Smoking Status: Yes Smoking History: Never smoked Have you smoked in the past 12 months: No Number of Cigarettes Smoked Daily: 20 If you are a former smoker, when did you quit?: 4 years ago Hx Alcohol Use: No Drug/Substance Use Hx: No Substance Use Type: None Hx Substance Use Treatment: No <Markell Anderson - Last Filed: 12/09/18 13:05> <Price Lozano - Last Filed: 12/09/18 13:21> - Past Medical History Allergies/Adverse Reactions: Allergies Allergy/AdvReac Type Severity Reaction Status Date / Time lisinopril Allergy Intermediate Cough Verified 12/09/18 11:02 Penicillins Allergy Intermediate Rash Verified 12/09/18 11:02 pravastatin sodium Allergy Intermediate MUSCLE PAIN Verified 12/09/18 11:02 [From Pravachol] simvastatin [From Zocor] Allergy Intermediate MUSCLE PAIN Verified 12/09/18 11: 02 sertraline Allergy Unknown Verified 12/09/18 11:02 Home Medications: Ambulatory Orders Aspirin [ASA -] 81 mg PO DAILY 12/19/15 Clopidogrel Bisulfate [Plavix -] 75 mg PO DAILY 12/19/15 Paroxetine HCl [Paxil -] 20 mg PO DAILY 12/19/15 Rosuvastatin [Crestor -] 40 mg PO HS 12/19/15 Carvedilol [Coreg -] 12.5 mg PO BID tablet 11/24/18 Levothyroxine [Synthroid -] 75 mcg PO DAILY@0700 tablet 11/24/18 Spironolactone [Aldactone -] 25 mg PO DAILY tablet 11/24/18 Review of Systems - Review of Systems Able to Perform ROS?: Yes Comments:: 12/09/18 12:32 GENERAL/CONSTITUTIONAL: No fever or chills. No weakness. HEAD, EYES, EARS, NOSE AND THROAT: No change in vision. No ear pain or discharge. No sore throat. CARDIOVASCULAR: No chest pain or shortness of breath. RESPIRATORY: No cough, wheezing, or hemoptysis. GASTROINTESTINAL: No nausea, vomiting, diarrhea or constipation. GENITOURINARY: No dysuria, frequency, or change in urination. MUSCULOSKELETAL: +Right hip pain. SKIN: No rash NEUROLOGIC: No headache, vertigo, loss of consciousness, or change in strength/ sensation. ENDOCRINE: No increased thirst. No abnormal weight change. HEMATOLOGIC/LYMPHATIC: No anemia, easy bleeding, or history of blood clots. ALLERGIC/IMMUNOLOGIC: No hives or skin allergy. All Other Systems: Reviewed and Negative <Michel Love - Last Filed: 12/09/18 12:32> *Physical Exam - Vital Signs Last Vital Signs Temp Pulse Resp BP Pulse Ox 97.6 F 74 16 101/64 100 12/09/18 11:07 12/09/18 11:07 12/09/18 11:07 12/09/18 11:07 12/09/18 11:07 - Physical Exam Comments: 12/09/18 12:33 GENERAL: Awake, alert, and fully oriented, in no acute distress NECK: Normal ROM, supple, no lymphadenopathy, JVD, or masses LUNGS: Breath sounds equal, clear to auscultation bilaterally. No wheezes, and no crackles HEART: Regular rate and rhythm, normal S1 and S2, no murmurs, rubs or gallops ABDOMEN: Soft, nontender. No guarding, no rebound. No masses EXTREMITIES: RLE: shortened and externally rotated. Tenderness to the right lateral hip. NEUROLOGICAL: Cranial nerves II through XII grossly intact. Normal speech. SKIN: Warm, Dry, normal turgor, no rashes or lesions noted. <Michel Love - Last Filed: 12/09/18 12:32> - Vital Signs Last Vital Signs Temp Pulse Resp BP Pulse Ox 97.6 F 74 16 101/64 100 12/09/18 11:07 12/09/18 11:07 12/09/18 11:07 12/09/18 11:07 12/09/18 11:07 <Markell Anderson - Last Filed: 12/09/18 13:05> - Vital Signs Last Vital Signs Temp Pulse Resp BP Pulse Ox 97.6 F 74 16 101/64 100 12/09/18 11:07 12/09/18 11:07 12/09/18 11:07 12/09/18 11:07 12/09/18 11:07 <Price Lozano - Last Filed: 12/09/18 13:21> Heart Score/ECG Review #1 ECG reviewed & interpreted by me at: 11:40 12/09/18 11:56 Biventricular paced 76 <Markell Anderson - Last Filed: 12/09/18 13:05> ED Treatment Course - LABORATORY CBC & Chemistry Diagram: 12/09/18 11:44 12/09/18 11:44 - ADDITIONAL ORDERS Additional order review: Laboratory Results 12/09/18 11:44 PT with INR 12.90 INR 1.09 PTT (Actin FS) 36.9 H 12/09/18 11:44 RBC 4.39 MCV 91.8 MCHC 32.5 RDW 16.0 H MPV 8.8 Neutrophils % 56.4 Lymphocytes % 31.9 Monocytes % 8.4 Eosinophils % 2.7 D Basophils % 0.6 <Michel Love - Last Filed: 12/09/18 12:32> - LABORATORY CBC & Chemistry Diagram: 12/09/18 11:44 12/09/18 11:44 - RADIOLOGY Radiology Studies Ordered: Category Date Time Status HIP & PELVIS-RIGHT [RAD] Stat Radiology 12/09/18 11:38 Ordered <Markell Anderson - Last Filed: 12/09/18 13:05> - LABORATORY CBC & Chemistry Diagram: 12/09/18 11:44 12/09/18 11:44 - ADDITIONAL ORDERS Additional order review: Laboratory Results 12/09/18 11:44 PT with INR 12.90 INR 1.09 PTT (Actin FS) 36.9 H 12/09/18 11:44 RBC 4.39 MCV 91.8 MCHC 32.5 RDW 16.0 H MPV 8.8 Neutrophils % 56.4 Lymphocytes % 31.9 Monocytes % 8.4 Eosinophils % 2.7 D Basophils % 0.6 <Price Lozano - Last Filed: 12/09/18 13:21> Medical Decision Making - Medical Decision Making 12/09/18 11:49 A portion of this note was documented by scribe services under my direction. I have reviewed the details of the note, within reason, and agree with the documentation with the following case summary and management plan written by me. Patient treated in the ED. Nursing notes are reviewed and incorporated into the medical decision-making. Vital signs reviewed. Peripheral IV access obtained by the nurse, laboratory studies are drawn and sent, reviewed and interpreted by myself. Vital Signs Temp Pulse Resp BP Pulse Ox 97.6 F 74 16 101/64 100 12/09/18 11:07 12/09/18 11:07 12/09/18 11:07 12/09/18 11:07 12/09/18 11:07 83-year-old male with history of congestive heart failure status post AICD, coronary disease status post multiple back procedures, chronic any disease, hypothyroidism, peripheral arterial disease presents with mechanical fall. The patient tripped and fell. Landed on his right hip. Patient actually denies hitting his head or having loss of conscious. Denies any numbness or weakness. Patient called 911 and ambulance brought the patient to the ER. Patient right lower extremity is somewhat shortened and externally rotated with tenderness the right hip. This is concerning for femoral neck or intertrochanteric fracture. The patient is neurovascular intact at the moment. We'll obtain a hip and pelvis x-ray and touch base with the patient's primary care physician. 12/09/18 12:58 Xray shows R intertrochanteric hip fracture. Will admit the patient to the hospital. Case discussed in detail with admitting physician including history, physical exam and ancillary studies. Admitting physician has assumed care for the patient, will follow all pending diagnostics and will complete the evaluation and treatment. 12/09/18 13:[address] Desai. Accepted. Requests Dr. Melgar and Dr. Kidd <Markell Anderson - Last Filed: 12/09/18 13:05> - Medical Decision Making Dr. Desai paged at 12:30, awaiting call back. Dr. Desai returned call at 1PM case discussed. Dr. Wright paged at 1:06 PM and returned call at 1:09 PM, case discussed. Dr. Cleaning paged at 1:14 PM, awaiting call back. Dr. Cleaning came down to the ER at 1: 20 PM, case discussed. <Price Lozano - Last Filed: 12/09/18 13:21> *DC/Admit/Observation/Transfer - Attestations Scribe Attestion: 12/09/18 12:34 Documentation prepared by Michel Love, acting as medical csr for Markell Anderson MD. <Michel Love - Last Filed: 12/09/18 12:32> - Discharge Dispostion Decision to Admit order: Yes <Markell Anderson - Last Filed: 12/09/18 13:05> <Price Lozano - Last Filed: 12/09/18 13:21> Diagnosis at time of Disposition: Hip fracture Qualifiers: Encounter type: initial encounter Fracture type: closed Laterality: right Qualified Code(s): S72.001A - Fracture of unspecified part of neck of right femur, initial encounter for closed fracture - Discharge Dispostion Condition at time of disposition: Stable
[2018-12-09 12:16] LABS: BASO % 0.6 % (0-2.0); EOS % 2.7 % (0-4.5); HEMATOCRIT 40.3 % (35.4-49); HEMOGLOBIN 13.1 GM/dL (11.7-16.9); LYMPH % 31.9 % (8-40); MCH 29.8 pg (25.7-33.7); MCHC 32.5 g/dl (32.0-35.9); MEAN CELL VOLUME 91.8 fl (80-96); MEAN PLT VOLUME 8.8 fl (7.5-11.1); MONO % 8.4 % (3.8-10.2); NEUT % 56.4 % (42.8-82.8); PLATELET COUNT 127 K/MM3 (134-434); RBC 4.39 M/mm3 (4.00-5.60); WHITE BLOOD COUNT 5.4 K/mm3 (4.0-10.0)
[2018-12-09 12:28] LABS: INR 1.09 (0.83-1.09); PROTHROMBIN TIME (PATIENT) 12.9 SEC (9.7-13.0)
[2018-12-09 12:31] LABS: ACTIVATED PTT 36.9 SECONDS (25.2-36.5)
[2018-12-09 12:42] LABS: ALBUMIN 3.4 g/dl (3.4-5.0); ALK PHOS 95 U/L (45-117); ANION GAP 4 MMOL/L (8-16); BILIRUBIN,TOTAL 0.4 mg/dL (0.2-1); BLOOD UREA NITROGEN 35 mg/dL (7-18); CALCIUM 8.8 mg/dL (8.5-10.1); CHLORIDE 111 mmol/L (98-107); CO2 22 mmol/L (21-32); GLUCOSE,RANDOM 95 mg/dL (74-106); POTASSIUM 5.5 mmol/L (3.5-5.1); SGOT/AST 18 U/L (15-37); SGPT/ALT 21 U/L (13-61); SODIUM 137 mmol/L (136-145); TOT PROT 6.8 g/dl (6.4-8.2)
--- NOTE | 2018-12-09 13:29 | CONSULT ---
Consult - text type - Consultation Consultation Note: ORTHOPEDIC SURGERY CONSULTATION NOTE Department of Orthopedic Surgery HISTORY OF PRESENT ILLNESS Otis Willett is an 83 year old male who presents to [facility] ED with right hip pain. The orthopedic service was consulted for a right intertrochanteric hip fracture. The injury occurred today after a mechanical fall. The patient notes pain in his right hip. Denies any other injuries. Denies numbness, tingling or other constitutional complaints. The patient is retired. Denies current tobacco use, drug use, alcohol abuse. The patient lives alone and uses no assistive devices at baseline. 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 Allergies Allergy/AdvReac Type Severity Reaction Status Date / Time lisinopril Allergy Intermediate Cough Verified 12/09/18 11:02 Penicillins Allergy Intermediate Rash Verified 12/09/18 11:02 pravastatin sodium Allergy Intermediate MUSCLE PAIN Verified 12/09/18 11:02 [From Pravachol] simvastatin [From Zocor] Allergy Intermediate MUSCLE PAIN Verified 12/09/18 11: 02 sertraline Allergy Unknown Verified 12/09/18 11:02 Vital Signs (last) Temp Pulse Resp BP Pulse Ox 97.6 F 74 16 101/64 100 12/09/18 11:07 12/09/18 11:07 12/09/18 11:07 12/09/18 11:07 12/09/18 11:07 Intake and Output 12/07/18 12/08/18 12/09/18 23:59 23:59 23:59 Other: Weight 173 lb Height 5 ft 10 in Body Mass Index (BMI) 24.8 Laboratory 12/09/18 11:44 12/09/18 11:44 PT with INR 12.90 SEC (9.7-13.0) 12/09/18 11:44 PTT (Actin FS) 36.9 SECONDS (25.2-36.5) H 12/09/18 11:44 FAMILY HISTORY Reviewed and noncontributory. REVIEW OF SYMPTOMS A twelve-point review of systems was performed and was negative except as noted in HPI. PHYSICAL EXAM Constitutional: Alert and oriented to person, place, and time. Appears well- developed and well-nourished. No acute distress, appropriate mood and affect. HEENT: Normocephalic, atraumatic Cardiovascular: Regular rate and rhythm, extremities warm, no cyanosis. Pulmonary: Breathing comfortably, normal air movement, no audible wheezing. Right Upper Extremity: No tenderness to palpation. Full passive and active ROM, free from pain. Left Upper Extremity: No tenderness to palpation. Full passive and active ROM, free from pain. Right Lower Extremity: Skin warm, dry, and intact; no lesions, rashes or ulcers noted. Muscle mass equal and symmetric to contralateral side. No atrophy noted. No masses or effusions noted. Unable to straight leg raise. Pain in groin with log roll. Nontender throughout rest of extremity. No cords or calf tenderness. No significant calf/ankle edema. EHL/TA/GS motor intact; SILT distally; 2+ DP pulses; Cap refill brisk. Left Lower Extremity: No tenderness to palpation. Full passive and active ROM, free from pain. EHL/TA/GS motor intact; SILT distally; 2+ DP pulses; Cap refill brisk. IMAGING I personally reviewed pelvis and right hip radiographs. They demonstrate an right intertrochanteric hip fracture. ASSESSMENT AND PLAN Otis Willett is an 83 year old male presenting status post mechanical fall with a right sided intertrochanteric hip fracture. We have reviewed the imaging and clinical findings in detail, as well as their potential implications. This is an operative fracture. Needs medical/cardiac clearance NPO NWB RLE Type and Screen/2 units PRBC on hold LR 84cc/hr CXR All questions were answered. Thank you for involving our team in the care of this patient. Please call us at [phone] with questions
--- NOTE | 2018-12-09 13:46 | CON.CARD ---
Consult Consult Specialty:: Cardiology (Coverage for Dr. Kidd) Referred by:: Dr. Desai Reason for Consultation:: Cardiac evaluation and for cardiac clearance - History of Present Illness Chief Complaint: Post fall resulting in right hip fracture History of Present Illness: Patient is an 83 year old male with underlying history of HTN, hypercholesterolemia, CAD post CABG, LV systolic dysfunction s/p SHIFT SUPERVISOR MELTING-D, history of MV repair s/p recent TAVR at [facility] who was at [facility] where he fell resulting in right hip fracture. He did not suffer any other visible injuries. He denies chest pain, SOB or palpitations. He denies paroxysmal nocturnal dyspnea or orthopnea. He denies fever or chills. He denies nausea, vomiting, diarrhea or abdominal pain. He denies headache or lightheadedness. Denies LOC. - History Source History Provided By: Patient, Medical Record Limitations to Obtaining History: No Limitations - Past Medical History RN TRAVELING: Yes: TIA Cardio/Vascular: Yes: CAD, CHF, HTN, Hyperlipdemia Renal/: Yes: Renal Inusuff (CKD (stage 1)) Psych: Yes: Anxiety, Other Musculoskeletal: Yes: Osteoarthritis Rheumatology: Yes: Gout Endocrine: Yes: Hypothyroidism, Other (Gluc intolerance) - Past Surgical History Past Surgical History: Yes: Arthrosocopy, Valve Replacement (MV repair and TAVR) Additional Surgical History: hernia surgery. 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 History of Recent Travel: Yes (went to [place] 1 week ago) Home Medications - Allergies Allergies/Adverse Reactions: Allergies Allergy/AdvReac Type Severity Reaction Status Date / Time lisinopril Allergy Intermediate Cough Verified 12/09/18 11:02 Penicillins Allergy Intermediate Rash Verified 12/09/18 11:02 pravastatin sodium Allergy Intermediate MUSCLE PAIN Verified 12/09/18 11:02 [From Pravachol] simvastatin [From Zocor] Allergy Intermediate MUSCLE PAIN Verified 12/09/18 11: 02 sertraline Allergy Unknown Verified 12/09/18 11:02 - Home Medications Home Medications: Ambulatory Orders Aspirin [ASA -] 81 mg PO DAILY 12/19/15 Clopidogrel Bisulfate [Plavix -] 75 mg PO DAILY 12/19/15 Paroxetine HCl [Paxil -] 20 mg PO DAILY 12/19/15 Rosuvastatin [Crestor -] 40 mg PO HS 12/19/15 Carvedilol [Coreg -] 12.5 mg PO BID tablet 11/24/18 Levothyroxine [Synthroid -] 75 mcg PO DAILY@0700 tablet 11/24/18 Spironolactone [Aldactone -] 25 mg PO DAILY tablet 11/24/18 Family Disease History - Family Disease History Family Disease History: Diabetes: Mother, Heart Disease: Mother Review of Systems - Review of Systems Constitutional: denies: Chills, Fever Cardiovascular: denies: Chest Pain, Palpitations, Shortness of Breath Respiratory: denies: Cough, Hemoptysis, Orthopnea, PND, SOB, SOB on Exertion, Wheezing Gastrointestinal: denies: Abdominal Pain, Constipation, Diarrhea, Melena, Nausea , Rectal Bleeding, Vomiting Genitourinary: denies: Dysuria, Hematuria Musculoskeletal: reports: Joint Pain Neurological: denies: Dizziness, Headache, Seizure, Syncope Vital Signs: Vital Signs Temperature 97.6 F 12/09/18 11:07 Pulse Rate 74 12/09/18 11:07 Respiratory Rate 16 12/09/18 11:07 Blood Pressure 101/64 12/09/18 11:07 O2 Sat by Pulse Oximetry (%) 100 12/09/18 11:07 Eyes: Yes: PERRL HENT: Yes: Atraumatic Neck: Yes: Supple Respiratory: Yes: CTA Bilaterally Gastrointestinal: Yes: Normal Bowel Sounds, Soft. No: Tenderness Cardiovascular: Yes: Regular Rate and Rhythm JVD: No PMI: Non-Displaced Heart Sounds: Yes: S1, S2 Murmur: Yes: Systolic Murmur, Grade 1 Edema: No - Other Data Labs, Other Data: CBC, BMP 12/09/18 11:44 12/09/18 11:44 INR, PTT INR 1.09 (0.83-1.09) 12/09/18 11:44 Laboratory Results - last 24 hr 12/09/18 12/09/18 12/09/18 11:44 11:44 11:44 WBC 5.4 RBC 4.39 Hgb 13.1 Hct 40.3 MCV 91.8 MCH 29.8 MCHC 32.5 RDW 16.0 H Plt Count 127 L D MPV 8.8 Absolute Neuts (auto) 3.1 Neutrophils % 56.4 Lymphocytes % 31.9 Monocytes % 8.4 Eosinophils % 2.7 D Basophils % 0.6 Nucleated RBC % 0 PT with INR 12.90 INR 1.09 PTT (Actin FS) 36.9 H Sodium 137 Potassium 5.5 H Chloride 111 H Carbon Dioxide 22 Anion Gap 4 L BUN 35 H Creatinine 2.0 H Creat Clearance w eGFR 32.15 Random Glucose 95 Calcium 8.8 Total Bilirubin 0.4 AST 18 ALT 21 Alkaline Phosphatase 95 Total Protein 6.8 Albumin 3.4 Ventricular paced rhythm with PVC Problem List - Problems (1) HTN (hypertension) Code(s): I10 - ESSENTIAL (PRIMARY) HYPERTENSION (2) S/P TAVR (transcatheter aortic valve replacement) Code(s): Z95.2 - PRESENCE OF PROSTHETIC HEART VALVE (3) Hip fracture Code(s): S72.009A - FRACTURE OF UNSP PART OF NECK OF UNSP FEMUR, INIT Qualifiers: Encounter type: initial encounter Fracture type: closed Laterality: right Qualified Code(s): S72.001A - Fracture of unspecified part of neck of right femur, initial encounter for closed fracture (4) AICD (automatic cardioverter/defibrillator) present Code(s): Z95.810 - PRESENCE OF AUTOMATIC (IMPLANTABLE) CARDIAC DEFIBRILLATOR (5) Acute on chronic combined systolic and diastolic CHF, NYHA class 3 Code(s): I50.43 - ACUTE ON CHRONIC COMBINED SYSTOLIC AND DIASTOLIC HRT FAIL (6) Acute on chronic renal failure Code(s): N17.9 - ACUTE KIDNEY FAILURE, UNSPECIFIED; N18.9 - CHRONIC KIDNEY DISEASE, UNSPECIFIED Qualifiers: (7) Aortic stenosis Code(s): I35.0 - NONRHEUMATIC AORTIC (VALVE) STENOSIS (8) CAD (coronary artery disease) Code(s): I25.10 - ATHSCL HEART DISEASE OF [place] CORONARY ARTERY W/O ANG PCTRS (9) Carotid artery disease Code(s): I77.9 - DISORDER OF ARTERIES AND ARTERIOLES, UNSPECIFIED (10) Hyperlipidemia Code(s): E78.5 - HYPERLIPIDEMIA, UNSPECIFIED Qualifiers: (11) Status post mitral valve annuloplasty Code(s): Z98.89 - OTHER SPECIFIED POSTPROCEDURAL STATES * DO NOT USE * Assessment/Plan 1. Post mechanical fall resulting in right hip fracture, no LOC 2. CAD s/p CABG, angina pectoris 3. MV repair and recent TAVR 4. SHIFT SUPERVISOR MELTING-D implantation for primary prophylaxis 5. HTN 6. Hypercholesterolemia 7. Hypothyroidism PLAN: 1. Echocardiography was done recently with severe LV systolic dysfunction and presence of TAVR functioning normally. Also has mild to moderate MR and TR. 2. There is no absolute contraindication for surgery in view of absence of ischemic symptoms, decompensated congestive heart failure and malignant arrhythmias. Acceptable cardiovascular risk. Patient is on ASA and Plavix for which Orthopedic Surgery states that they can be continued. 3. Continue current cardiac medications including Carvedilol. Aldactone and Furosemide can be resumed after surgery. 4. Continue Rosuvastatin 5. Telemetry monitoring after surgery 6. Can apply magnet on SHIFT SUPERVISOR MELTING-D during surgery which will deactivate it and when magnet is taken off, will revert back to programmed setting Will follow post op Addison Cleaning MD
[2018-12-09] MEDS ORDERED: ETOMIDATE 20 MG/10 ML AMPUL IVPUSH ONE (15:45)
[2018-12-09] MEDS ORDERED: MIDAZOLAM HCL 2 MG/2 ML SINGLE DOSE VIAL ONE (15:46)
[2018-12-09] MEDS ORDERED: ROCURONIUM BROMIDE 50 MG/5 ML VIAL ONE (15:46)
--- NOTE | 2018-12-09 16:03 | HP ---
Admitting History and Physical - Primary Care Physician PCP: Hector Desai - Admission Chief Complaint: fell outside home this AM History of Present Illness: 83yo M with PMH of diastolic CHF- class 3 (s/p AICD, stable CAD s/p TAVR , CKD- stage 2, hypothyroid, PAD) BIBA after he fell onto ground at curbside in front of his residence. He was walking towards his vehicle when he suddenly lost balance and fell on his right side w/o LOC; though he was not able to rise back up. He was seen yesterday by me in the office (and felt fairly well) in f/u to his recent hospitalization a few weeks ago for his chronic CHF He denied any antecedent CP; n-v, palpitations, dizziness, focal arm/leg weakness; speech deficits, etc. His main c/o on arrival was pain on the Rt hip. 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: TIA Cardiovascular: Yes: CAD, CHF, HTN, Hyperlipdemia, Other (ICD status; valve repair status) Renal/: Yes: Renal Inusuff (CKD (stage 1)) Heme/Onc: Yes: Other (MGUS) Psych: Yes: Anxiety, Other Musculoskeletal: Yes: Osteoarthritis Rheumatology: Yes: Gout Endocrine: Yes: Hypothyroidism, Other (Gluc intolerance) - Past Surgical History Past Surgical History: Yes: Arthrosocopy, Valve Replacement (MV repair and TAVR) - Smoking History Smoking history: Never smoked Have you smoked in the past 12 months: No Aproximately how many cigarettes per day: 20 If you are a former smoker, when did you quit?: 4 years ago - Alcohol/Substance Use Hx Alcohol Use: No History of Substance Use: reports: None - Social History Usual Living Arrangement: Yes: Alone ADL: Independent 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 History of Recent Travel: Yes (went to [place] 1 week ago) Home Medications - Allergies Allergies/Adverse Reactions: Allergies Allergy/AdvReac Type Severity Reaction Status Date / Time lisinopril Allergy Intermediate Cough Verified 12/09/18 11:02 Penicillins Allergy Intermediate Rash Verified 12/09/18 11:02 pravastatin sodium Allergy Intermediate MUSCLE PAIN Verified 12/09/18 11:02 [From Pravachol] simvastatin [From Zocor] Allergy Intermediate MUSCLE PAIN Verified 12/09/18 11: 02 sertraline Allergy Unknown Verified 12/09/18 11:02 - Home Medications Home Medications: Ambulatory Orders Aspirin [ASA -] 81 mg PO DAILY 12/19/15 Clopidogrel Bisulfate [Plavix -] 75 mg PO DAILY 12/19/15 Paroxetine HCl [Paxil -] 20 mg PO DAILY 12/19/15 Rosuvastatin [Crestor -] 40 mg PO HS 12/19/15 Carvedilol [Coreg -] 12.5 mg PO BID tablet 11/24/18 Levothyroxine [Synthroid -] 75 mcg PO DAILY@0700 tablet 11/24/18 Spironolactone [Aldactone -] 25 mg PO DAILY tablet 11/24/18 Family Disease History - Family Disease History Family Disease History: Diabetes: Mother, Heart Disease: Mother Review of Systems - Review of Systems Constitutional: reports: No Symptoms Eyes: reports: No Symptoms HENT: reports: No Symptoms Neck: reports: No Symptoms Cardiovascular: reports: No Symptoms Respiratory: reports: No Symptoms Gastrointestinal: reports: No Symptoms Genitourinary: reports: No Symptoms Breasts: reports: No Symptoms Reported Musculoskeletal: reports: Extremity Pain Integumentary: reports: Bruising Neurological: reports: No Symptoms Endocrine: reports: No Symptoms Hematology/Lymphatic: reports: No Symptoms Psychiatric: reports: No Symptoms Physical Examination Vital Signs: Vital Signs Temperature 98.3 F 12/09/18 15:04 Pulse Rate 74 12/09/18 11:07 Respiratory Rate 20 12/09/18 15:04 Blood Pressure 101/68 12/09/18 15:04 O2 Sat by Pulse Oximetry (%) 100 12/09/18 11:07 Findings/Remarks: skin-abrasions RUE; sub cut nodules head--NC eyes--eomi face--no droop neck--non tender heart--RR lungs--bilat BS abd--soft ext--RLE ext rotated; dimnished pedal pulses neuro--fully alert; lucid; coherent; no focal deficits appreciated; cognitively intact. Labs: CBC, BMP 12/09/18 11:44 12/09/18 11:44 CBCD WBC 5.4 K/mm3 (4.0-10.0) 12/09/18 11:44 RBC 4.39 M/mm3 (4.00-5.60) 12/09/18 11:44 Hgb 13.1 GM/dL (11.7-16.9) 12/09/18 11:44 Hct 40.3 % (35.4-49) 12/09/18 11:44 MCV 91.8 fl (80-96) 12/09/18 11:44 MCHC 32.5 g/dl (32.0-35.9) 12/09/18 11:44 RDW 16.0 % (11.9-15.9) H 12/09/18 11:44 Plt Count 127 K/MM3 (134-434) L D 12/09/18 11:44 MPV 8.8 fl (7.5-11.1) 12/09/18 11:44 CMP Sodium 137 mmol/L (136-145) 12/09/18 11:44 Potassium 5.5 mmol/L (3.5-5.1) H 12/09/18 11:44 Chloride 111 mmol/L (98-107) H 12/09/18 11:44 Carbon Dioxide 22 mmol/L (21-32) 12/09/18 11:44 Anion Gap 4 MMOL/L (8-16) L 12/09/18 11:44 BUN 35 mg/dL (7-18) H 12/09/18 11:44 Creatinine 2.0 mg/dL (0.55-1.3) H 12/09/18 11:44 Creat Clearance w eGFR 32.15 (>60) 12/09/18 11:44 Random Glucose 95 mg/dL (74-106) 12/09/18 11:44 Calcium 8.8 mg/dL (8.5-10.1) 12/09/18 11:44 Total Bilirubin 0.4 mg/dL (0.2-1) 12/09/18 11:44 AST 18 U/L (15-37) 12/09/18 11:44 ALT 21 U/L (13-61) 12/09/18 11:44 Alkaline Phosphatase 95 U/L (45-117) 12/09/18 11:44 Total Protein 6.8 g/dl (6.4-8.2) 12/09/18 11:44 Albumin 3.4 g/dl (3.4-5.0) 12/09/18 11:44 INR, PTT INR 1.09 (0.83-1.09) 12/09/18 11:44 Imaging - Results Chest X-ray: Report Reviewed (nap) X-ray: Report Reviewed (hx fx) EKG: Report Reviewed (paced) Problem List - Problems (1) Hip fracture Assessment/Plan: acute; 2nd [facility] fall; will undergo ORIF. Cardiac cunningham he was cleared by Dr Cleaning; though his overal risk is higher than average for seema-op complications given the extent of his heart disease; of which he is aware but nonetheless wishes to have the procedure (as he would not be able to function properly and care for himself without it). PLAN: post op monitoring Code(s): S72.009A - FRACTURE OF UNSP PART OF NECK OF UNSP FEMUR, INIT Qualifiers: Encounter type: initial encounter Fracture type: closed Laterality: right Qualified Code(s): S72.001A - Fracture of unspecified part of neck of right femur, initial encounter for closed fracture (2) 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 Assessment/Plan: chronic LVdysf; now seems to be compensated. Will hope to continue the same agents post op Code(s): I50.42 - CHRONIC COMBINED SYSTOLIC AND DIASTOLIC HRT FAIL (3) S/P TAVR (transcatheter aortic valve replacement) Assessment/Plan: [place] [facility] [place] now working well Code(s): Z95.2 - PRESENCE OF PROSTHETIC HEART VALVE (4) Chronic renal insufficiency, stage III (moderate) Assessment/Plan: stable; longstanding Code(s): N18.3 - CHRONIC KIDNEY DISEASE, STAGE 3 (MODERATE) (5) Anxiety and depression Assessment/Plan: cont SSRI Code(s): F41.9 - ANXIETY DISORDER, UNSPECIFIED; F32.9 - MAJOR DEPRESSIVE DISORDER, SINGLE EPISODE, UNSPECIFIED (6) Atrial fibrillation Assessment/Plan: document post TAVR; but has declined to take warfarin; wishes to just take the ASA & Plavix; and is aware of possible risks w/o a-c; as he is aware of hemorrhagic complication w use of a-c. Code(s): I48.91 - UNSPECIFIED ATRIAL FIBRILLATION Qualifiers: Atrial fibrillation type: unspecified Qualified Code(s): I48.91 - Unspecified atrial fibrillation (7) Carotid occlusion, left Assessment/Plan: not new; avoid excessive low BP Code(s): I65.22 - OCCLUSION AND STENOSIS OF LEFT CAROTID ARTERY (8) Hypothyroid Assessment/Plan: TFTs in range at current dose of hormone Code(s): E03.9 - HYPOTHYROIDISM, UNSPECIFIED Qualifiers: Hypothyroidism type: acquired Qualified Code(s): E03.9 - Hypothyroidism, unspecified (9) Elderly person living alone Assessment/Plan: will need home assistence Code(s): Z60.2 - PROBLEMS RELATED TO LIVING ALONE (10) Presence of combination internal cardiac defibrillator (ICD) and pacemaker Assessment/Plan: recently checked by his Manager Tax Code(s): Z95.810 - PRESENCE OF AUTOMATIC (IMPLANTABLE) CARDIAC DEFIBRILLATOR (11) Encounter for long-term use of antiplatelets/antithrombotics Assessment/Plan: on both ASA & Plavix; orthopedics & cardio aware; surgeon does not feel that this will increase risk of complications. Code(s): Z79.02 - CORRECTION (CURRENT) USE OF ANTITHROMBOTICS/ANTIPLATELETS Assessment/Plan 83yo M with stated problems who will undergo Rt ORIF. Plan is to monitor post Op on telemetry; check post op chems; CBC; CXR. ~~~~~~~~~~~~~~~~~ Dr Desai
[2018-12-09] MEDS ORDERED: ceFAZolin SODIUM 1 GM VIAL ONE ×2 (16:18→16:49)
[2018-12-09] MEDS ORDERED: ceFAZolin SODIUM 1 GM VIAL IVPB ONE (16:20)
[2018-12-09] MEDS ORDERED: PHENYLEPHRINE HCL 10 MG/1 ML SINGLE DOSE VIAL ONE (16:22)
[2018-12-09 16:32] LABS: URINE APPEARANCE CLEAR; URINE BILIRUBIN NEGATIVE (NEGATIVE); URINE COLOR YELLOW; URINE GLUCOSE (UA) NEGATIVE (NEGATIVE); URINE KETONE NEGATIVE (NEGATIVE); URINE LEUK ESTERASE NEGATIVE (NEGATIVE); URINE NITRITE NEGATIVE (NEGATIVE); URINE PROTEIN TRACE (NEGATIVE); URINE UROBILINOGEN 0.2 mg/dL (0.2-1.0)
[2018-12-09] MEDS ORDERED: SODIUM CHLORIDE 0.9% P/F 10 ML VIAL IJ ONE ×2 (16:40→16:49)
[2018-12-09] MEDS ORDERED: NEOSTIGMINE METHYLSULFATE 0.5 MG/ML - 10 ML MDV ONE (17:01)
[2018-12-09] MEDS ORDERED: GLYCOPYRROLATE 0.2 MG/1 ML VIAL ONE (17:02)
[2018-12-09] MEDS ORDERED: ONDANSETRON 4 MG/2 ML VIAL IVPUSH PRN (17:23)
--- NOTE | 2018-12-09 17:37 | OPR ---
DATE OF PROCEDURE: 12/09/2018 TITLE OF OPERATION: Right hip cephalomedullary nail fixation (CPT 07494) PREOPERATIVE DIAGNOSIS: Right intertrochanteric hip fracture POSTOPERATIVE DIAGNOSIS: Right intertrochanteric hip fracture SURGEON: Endy Wright DO CAMPAIGN MARKETING SPECIALIST: Augie foreman DO ANESTHESIA: General anesthesia SPECIMEN (BACTERIOLOGICAL, PATHOLOGICAL OR OTHER): None PROSTHETIC DEVICE/IMPLANT: 125 degree 11 mm 180 mm Paco Gamma nail 105 mm lag screw 42.5 mm locking screw COMPLICATIONS: none EBL: 50 mL INDICATIONS FOR SURGERY: Otis Willett is an 83 year old male who presented in the preoperative setting with a right hip intertrochanteric hip fracture. Based on their pre- injury level of activity, surgical treatment was discussed. The risks and benefits of surgery and anesthesia were discussed in detail including but not limited to pain, bleeding, infection, scarring, damage to vessels and nerves, failure to obtain the desired result, failure to heal, failure to return to sport. Understanding the risks and benefits, Mr. Willett opted to proceed with surgical management. SURGEON'S NARRATIVE: Otis Willett was seen in the preoperative area. His right side was marked for surgery and consent was reviewed and signed. He was then brought back to the operating room. He was transferred to the OR table. All bony prominences were well padded. A time-out was held and all team members agreed on the operative side and planned procedure. Anesthesia was then induced. Preoperative prophylactic antibiotics were indicated and Ancef was given prior to and within one hour of any incision. Sequential compression devices were placed on the contralateral extremity for the duration of the case as part of a comprehensive DVT prophylaxis protocol consisting of intraoperative SCDs, early postoperative mobilization and lovenox for chemoprophylaxis. Under fluoroscopy, the fracture was reduced by traction and internal rotation with slight adduction. After reduction was achieved, the hip was prepped and draped in the usual sterile fashion with application of a shower curtain. A small incision was made over directly over the proximal aspect of the hip, centered over just proximal to the prominence of the tip of the greater trochanter. This was done using a 10 blade. It was carried through the skin and subcutaneous tissues. Further dissection was performed using the Hooper scissors. The guide pin for the Gamma Nail System was then inserted from the tip of the greater trochanter and into the proximal femoral canal. The opening reamer was then placed over the guidepin and used to make an opening in the proximal femur. The guidepin was then removed. A 125-degree x 11mm x 180mm gamma nail was selected. The Gamma Nail was inserted into the femoral canal into its appropriate position. Using the proximal targeting device, a 1.5-cm longitudinal incision was made directly over the lateral aspect of the proximal thigh using the 10 blade, with dissection using the hemostat to the lateral femur. A guidepin for the lag screw was then inserted from the lateral femur across the fracture site and into the femoral head and its appropriate position verified using C-arm guidance in both the AP and lateral planes. After pre-drilling, a 105-mm lag screw was then inserted over the guidepin and across the fracture site for definitive fixation. The guidepin was then removed. A set screw was then inserted into the top of the nail and completed turned, then turned back a half turn. The fracture site was appropriately compressed. The proximal targeting system was then removed. Attention was then turned to placing the distal screw. The guide was adjusted and using the 10 blade an incision was made directly over the lateral aspect of the thigh, with dissection using the hemostat to the lateral femur. A guidepin for the distal locking screw was then inserted from the lateral femur across the fracture site and into the femoral shaft and its appropriate position verified using C-arm guidance in both the AP and lateral planes. After pre- drilling, a 42.5-mm locking screw was then inserted over the guidepin and across the nail for definitive fixation. The guidepin was then removed. Appropriate position of the interlocking screws, the lag screw, the nail, and the fracture site was verified using C-arm guidance. Attention was then turned to closure. The incisions were copiously irrigated with sterile saline. Deep tissue was closed with 0 vicryl. Subcutaneous closure was achieved with 2-0 vicryl. Skin was closed with uasma. At closure, all needle counts and sponge counts were correct. The toes were warm and well- perfused at the end of the case. The patient was then awoken and brought to the postoperative recovery room in stable condition. There was no complications immediately apparent. Attestation for congressional assistant: Dr. Augie Foreman POSTOPERATIVE PLAN - Weight-bearing as tolerated - Physical therapy - Pain control - Comprehensive DVT prophylaxis consists of intraoperative SCDs, early postoperative mobilization and lovenox for chemoprophylaxis. - Follow-up as an outpatient in 2 weeks for wound check and x-rays.
[2018-12-09] MEDS ORDERED: oxyCODONE HCL 5 MG TABLET PO PRN (17:48)
[2018-12-09] MEDS ORDERED: morphine SULFATE 4 MG/ML VIAL IVPUSH PRN (17:49)
[2018-12-09 18:44] LABS: HEMATOCRIT 39.8 % (35.4-49); HEMOGLOBIN 12.8 GM/dL (11.7-16.9); MCH 29.9 pg (25.7-33.7); MCHC 32.2 g/dl (32.0-35.9); MEAN CELL VOLUME 92.8 fl (80-96); MEAN PLT VOLUME 8.6 fl (7.5-11.1); PLATELET COUNT 129 K/MM3 (134-434); RBC 4.28 M/mm3 (4.00-5.60); RDW 15.7 % (11.9-15.9); WHITE BLOOD COUNT 8.1 K/mm3 (4.0-10.0)
[2018-12-09] MEDS: LACTATED RINGERS SOLUTION 1,000 ML IV SCH ×2 (19:05→22:04)
[2018-12-09 19:06] LABS: ANION GAP 8 MMOL/L (8-16); BLOOD UREA NITROGEN 34 mg/dL (7-18); CALCIUM 8.6 mg/dL (8.5-10.1); CHLORIDE 112 mmol/L (98-107); CO2 18 mmol/L (21-32); CREATININE 1.8 mg/dL (0.55-1.3); GLUCOSE,RANDOM 105 mg/dL (74-106); POTASSIUM 5.3 mmol/L (3.5-5.1); SODIUM 138 mmol/L (136-145)
[2018-12-09] MEDS: CEFAZOLIN 2 GM/D5W 2 GM/50 ML ML IVPB SCH (22:03)
[2018-12-09] MEDS: oxyCODONE HCL 5 MG TABLET PO PRN (22:59)
[2018-12-10] MEDS: oxyCODONE HCL 5 MG TABLET PO PRN ×2 (02:20→21:21)
[2018-12-10] MEDS: LEVOTHYROXINE NA 75 MCG TABLET (FP) PO SCH (06:13)
[2018-12-10] MEDS: CEFAZOLIN 2 GM/D5W 2 GM/50 ML ML IVPB SCH ×2 (06:13→14:59)
[2018-12-10] MEDS ORDERED: LEVOTHYROXINE NA 75 MCG TABLET (FP) PO SCH (07:00)
[2018-12-10] MEDS ORDERED: PT OWN MED DRAWER 7, Y5N ONE (08:54)
[2018-12-10] MEDS: CARVEDILOL 12.5 MG TABLET (FP) PO SCH ×2 (09:40→21:20)
[2018-12-10] MEDS: PARoxetine HCL 10 MG TABLET (FP) PO SCH (09:40)
[2018-12-10] MEDS: ASPIRIN COATED 81 MG TABLET.EC PO SCH (09:40)
[2018-12-10] MEDS: ENOXAPARIN NA (PORCINE) 40 MG/0.4 ML DISP.SYRIN SQ SCH (09:40)
--- NOTE | 2018-12-10 09:57 | PN ---
Progress Note, Physician Chief Complaint: Events noted Post Op #1 Hemodynamically stable History of Present Illness: Patient was seen and examined. Awake and alert. Chart was reviewed Denies chest pain, SOB or palpitations - Current Medication List Current Medications: Active Medications Aspirin (Ecotrin -) 81 mg PO DAILY [facility] Last Admin: 12/10/18 09:40 Dose: 81 mg Carvedilol (Coreg -) 12.5 mg PO BID [facility] Last Admin: 12/10/18 09:40 Dose: 12.5 mg Clopidogrel Bisulfate (Plavix -) 75 mg PO DAILY [facility] Enoxaparin Sodium (Lovenox -) 40 mg SQ DAILY [facility] Last Admin: 12/10/18 09:40 Dose: 40 mg Cefazolin Sodium/Dextrose (Ancef 2 Gm Premixed Ivpb -) 2 gm in 50 mls @ 100 mls /hr IVPB Q8H [facility] Stop: 12/10/18 22:59 Last Admin: 12/10/18 06:13 Dose: 100 mls/hr Lactated Ringer's (Lactated Ringers Solution) 1,000 mls @ 25 mls/hr IV ASDIR [facility] Last Admin: 12/09/18 22:04 Dose: 25 mls/hr Levothyroxine Sodium (Synthroid -) 75 mcg PO DAILY@0700 [facility] Last Admin: 12/10/18 06:13 Dose: 75 mcg Morphine Sulfate (Morphine Sulfate) 4 mg IVPUSH Q4H PRN PRN Reason: PAIN LEVEL 7 - 10 Last Admin: 12/10/18 03:12 Dose: 4 mg Oxycodone HCl (Roxicodone -) 5 mg PO Q4H PRN PRN Reason: PAIN LEVEL 1-3 Stop: 12/12/18 17:48 Last Admin: 12/09/18 22:03 Dose: 5 mg Oxycodone HCl (Roxicodone -) 10 mg PO Q4H PRN PRN Reason: PAIN LEVEL 4-6 Stop: 12/12/18 17:49 Last Admin: 12/10/18 02:20 Dose: 10 mg Paroxetine HCl (Paxil -) 10 mg PO DAILY [facility] Last Admin: 12/10/18 09:40 Dose: 10 mg Rosuvastatin Calcium (Crestor -) 10 mg PO [facility] - Objective Vital Signs: Vital Signs Temperature 98.4 F 12/10/18 06:00 Pulse Rate 68 12/10/18 06:00 Respiratory Rate 18 12/10/18 06:00 Blood Pressure 166/113 H 12/10/18 06:00 O2 Sat by Pulse Oximetry (%) 100 12/09/18 19:23 Eyes: Yes: PERRL HENT: Yes: Atraumatic Neck: Yes: Supple Cardiovascular: Yes: Regular Rate and Rhythm, S1, S2 Respiratory: Yes: CTA Bilaterally Gastrointestinal: Yes: Normal Bowel Sounds, Soft. No: Tenderness Edema: No Additional Findings/Remarks: - Review of Systems Constitutional: denies: Chills, Fever Cardiovascular: denies: Chest Pain, Palpitations, Shortness of Breath Respiratory: denies: Cough, Hemoptysis, Orthopnea, PND, SOB, SOB on Exertion, Wheezing Gastrointestinal: denies: Abdominal Pain, Constipation, Diarrhea, Melena, Nausea , Rectal Bleeding, Vomiting Genitourinary: denies: Dysuria, Hematuria Musculoskeletal: reports: Joint Pain Neurological: denies: Dizziness, Headache, Seizure, Syncope Labs: CBC, BMP 12/09/18 18:20 12/09/18 18:20 INR, PTT INR 1.09 (0.83-1.09) 12/09/18 11:44 Problem List - Problems (1) HTN (hypertension) Code(s): I10 - ESSENTIAL (PRIMARY) HYPERTENSION (2) S/P TAVR (transcatheter aortic valve replacement) Code(s): Z95.2 - PRESENCE OF PROSTHETIC HEART VALVE (3) Hip fracture Code(s): S72.009A - FRACTURE OF UNSP PART OF NECK OF UNSP FEMUR, INIT Qualifiers: Encounter type: initial encounter Fracture type: closed Laterality: right Qualified Code(s): S72.001A - Fracture of unspecified part of neck of right femur, initial encounter for closed fracture (4) AICD (automatic cardioverter/defibrillator) present Code(s): Z95.810 - PRESENCE OF AUTOMATIC (IMPLANTABLE) CARDIAC DEFIBRILLATOR (5) Acute on chronic combined systolic and diastolic CHF, NYHA class 3 Code(s): I50.43 - ACUTE ON CHRONIC COMBINED SYSTOLIC AND DIASTOLIC HRT FAIL (6) Acute on chronic renal failure Code(s): N17.9 - ACUTE KIDNEY FAILURE, UNSPECIFIED; N18.9 - CHRONIC KIDNEY DISEASE, UNSPECIFIED Qualifiers: (7) Aortic stenosis Code(s): I35.0 - NONRHEUMATIC AORTIC (VALVE) STENOSIS (8) CAD (coronary artery disease) Code(s): I25.10 - ATHSCL HEART DISEASE OF [place] CORONARY ARTERY W/O ANG PCTRS (9) Carotid artery disease Code(s): I77.9 - DISORDER OF ARTERIES AND ARTERIOLES, UNSPECIFIED (10) Hyperlipidemia Code(s): E78.5 - HYPERLIPIDEMIA, UNSPECIFIED Qualifiers: (11) Status post mitral valve annuloplasty Code(s): Z98.89 - OTHER SPECIFIED POSTPROCEDURAL STATES * DO NOT USE * Assessment/Plan 1. Post mechanical fall resulting in right hip fracture, no LOC 2. CAD s/p CABG, angina pectoris 3. MV repair and recent TAVR 4. [place] [employer]-D implantation for primary prophylaxis 5. HTN 6. Hypercholesterolemia 7. Hypothyroidism PLAN: 1. Echocardiography was done recently with severe LV systolic dysfunction and presence of TAVR functioning normally. Also has mild to moderate MR and TR. 2. Continue ASA and Plavix 3. Continue current cardiac medications including Carvedilol. Aldactone and Furosemide can be resumed after surgery. 4. Continue Rosuvastatin 5. Telemetry monitoring post op 6. PT and rehab Addison Cleaning MD
[2018-12-10] MEDS ORDERED: CARVEDILOL 12.5 MG TABLET (FP) PO SCH (10:00)
[2018-12-10] MEDS ORDERED: CLOPIDOGREL BISULFATE 75 MG TABLET (FP) PO SCH (10:00)
[2018-12-10] MEDS ORDERED: ASPIRIN COATED 81 MG TABLET.EC PO SCH (10:00)
[2018-12-10] MEDS ORDERED: PARoxetine HCL 10 MG TABLET (FP) PO SCH (10:00)
--- NOTE | 2018-12-10 10:32 | PN ---
Progress Note (short form) - Note Progress Note: ORTHOPEDIC SURGERY PROGRESS NOTE Department of Orthopedic Surgery SUBJECTIVE No acute events overnight. No complaints currently. Denies chest pain, shortness of breath, or calf pain. No nausea or vomiting. Tolerating oral intake. Pain control difficult overnight, but improving. PHYSICAL EXAMINATION General: Alert, oriented, cooperative and no distress. Lower Extremity: Dressing clean, dry and intact; Tenderness to palpation proximal thigh. Compartments soft and compressible. EHL/TA/GS motor intact; SILT distally; 2+ DP pulses; Cap refill brisk. DVT Exam: No evidence of DVT seen on physical exam; No cords or calf tenderness ; No significant calf/ankle edema. Intake & Output 12/08/18 12/09/18 12/10/18 23:59 23:59 23:59 Intake Total 675 1000 Output Total 50 450 Balance 625 550 Intake: IV 675 300 Lactated Ringers Solution 300 1,000 ml @ 25 mls/hr IV ASDIR ANTOINE Rx#:[id number] IVPB 100 Oral 600 Output: Urine 450 Straight Cath 450 Estimated Blood Loss 50 Other: Voiding Method Urinal Urinal Bowel Movement No Weight 173 lb Height 5 ft 10 in Body Mass Index (BMI) 24.8 Weight Measurement Method Estimated by Staff Active Medications Generic Name Dose Route Start Last Admin Trade Name Freq PRN Reason Stop Dose Admin Aspirin 81 mg 12/10/18 10:00 12/10/18 09:40 Ecotrin - PO 81 mg DAILY ANTOINE Administration Carvedilol 12.5 mg 12/10/18 10:00 12/10/18 09:40 Coreg - PO 12.5 mg BID ANTOINE Administration Clopidogrel Bisulfate 75 mg 12/10/18 10:00 Plavix - PO DAILY ANTOINE Enoxaparin Sodium 40 mg 12/10/18 10:00 12/10/18 09:40 Lovenox - SQ 40 mg DAILY ANTOINE Administration Cefazolin Sodium/Dextrose 2 gm in 50 mls @ 100 mls/hr 12/09/18 23:00 06:13 Ancef 2 Gm Premixed Ivpb - IVPB 12/10/18 22:59 100 mls/hr Q8H ANTOINE Administration Lactated Ringer's 1,000 mls @ 25 mls/hr 12/09/18 17:30 12/09/18 22:04 Lactated Ringers Solution IV 25 mls/hr ASDIR ANTOINE Administration Levothyroxine Sodium 75 mcg 12/10/18 07:00 12/10/18 06:13 Synthroid - PO 75 mcg DAILY@0700 ANTOINE Administration Morphine Sulfate 4 mg 12/09/18 17:49 12/10/18 03:12 Morphine Sulfate IVPUSH 4 mg Q4H PRN Administration PAIN LEVEL 7 - 10 Oxycodone HCl 5 mg 12/09/18 17:48 12/09/18 22:03 Roxicodone - PO 12/12/18 17:48 5 mg Q4H PRN Administration PAIN LEVEL 1-3 Oxycodone HCl 10 mg 12/09/18 17:49 12/10/18 02:20 Roxicodone - PO 12/12/18 17:49 10 mg Q4H PRN Administration PAIN LEVEL 4-6 Paroxetine HCl 10 mg 12/10/18 10:00 12/10/18 09:40 Paxil - PO 10 mg DAILY ANTOINE Administration Rosuvastatin Calcium 10 mg 12/10/18 22:00 Crestor - PO HS [facility] Vital Signs (last) Temp Pulse Resp BP Pulse Ox 98.4 F 68 18 166/113 H 100 12/10/18 06:00 12/10/18 06:00 12/10/18 06:00 12/10/18 06:00 12/09/18 19:23 Laboratory (coagulation) PT with INR 12.90 SEC (9.7-13.0) 12/09/18 11:44 Laboratory 12/09/18 18:20 12/09/18 18:20 IMAGING Postoperative right hip radiographs show maintenance of fracture reduction with no signs of implant failure or breakage. ASSESSMENT AND PLAN Otis Willett is an 83 year old male POD#1 status post right hip cephalomedullary nail. Doing well. - FU labs - Monitor Vitals - Lovenox for DVT prophylaxis - Plavix restarted - Discontinue IVF - Pain control: Transition to oral pain medications, minimize narcotic use - Ice/Elevation - Elevate HOB, encourage oral intake - Appreciate medical management (Nutrition optimization, decubitus precautions heel/sacrum) - PT/OT; WBAT - DC usama POD #14 All questions were answered. Thank you for involving our team in the care of this patient. We will follow the patient with you. Please call with any questions [phone].
[2018-12-10 11:11] LABS: HEMATOCRIT 36.9 % (35.4-49); HEMOGLOBIN 11.9 GM/dL (11.7-16.9); MCH 29.9 pg (25.7-33.7); MCHC 32.4 g/dl (32.0-35.9); MEAN CELL VOLUME 92.3 fl (80-96); MEAN PLT VOLUME 8.6 fl (7.5-11.1); PLATELET COUNT 112 K/MM3 (134-434); RBC 3.99 M/mm3 (4.00-5.60); RDW 15.7 % (11.9-15.9); WHITE BLOOD COUNT 7.4 K/mm3 (4.0-10.0)
[2018-12-10 11:23] LABS: ANION GAP 7 MMOL/L (8-16); BLOOD UREA NITROGEN 33 mg/dL (7-18); CALCIUM 8.4 mg/dL (8.5-10.1); CHLORIDE 108 mmol/L (98-107); CO2 20 mmol/L (21-32); CREATININE 1.9 mg/dL (0.55-1.3); GLUCOSE,RANDOM 89 mg/dL (74-106); POTASSIUM 4.9 mmol/L (3.5-5.1); SODIUM 136 mmol/L (136-145)
[2018-12-10] MEDS: CLOPIDOGREL BISULFATE 75 MG TABLET (FP) PO SCH (14:59)
--- NOTE | 2018-12-10 16:20 | PN ---
Progress Note (short form) - Note Progress Note: ^^^^^^^^^^^^ medical ^^^^^^^^^^^^^^^ Current Medications Aspirin (Ecotrin -) 81 mg PO DAILY [facility] Last Admin: 12/10/18 09:40 Dose: 81 mg Carvedilol (Coreg -) 12.5 mg PO BID [facility] Last Admin: 12/10/18 09:40 Dose: 12.5 mg Clopidogrel Bisulfate (Plavix -) 75 mg PO DAILY [facility] Last Admin: 12/10/18 14:59 Dose: 75 mg Enoxaparin Sodium (Lovenox -) 40 mg SQ DAILY [facility] Last Admin: 12/10/18 09:40 Dose: 40 mg Cefazolin Sodium/Dextrose (Ancef 2 Gm Premixed Ivpb -) 2 gm in 50 mls @ 100 mls /hr IVPB Q8H [facility] Stop: 12/10/18 22:59 Last Admin: 12/10/18 14:59 Dose: 100 mls/hr Lactated Ringer's (Lactated Ringers Solution) 1,000 mls @ 25 mls/hr IV ASDIR [facility] Last Admin: 12/09/18 22:04 Dose: 25 mls/hr Levothyroxine Sodium (Synthroid -) 75 mcg PO DAILY@0700 [facility] Last Admin: 12/10/18 06:13 Dose: 75 mcg Morphine Sulfate (Morphine Sulfate) 4 mg IVPUSH Q4H PRN PRN Reason: PAIN LEVEL 7 - 10 Last Admin: 12/10/18 03:12 Dose: 4 mg Oxycodone HCl (Roxicodone -) 5 mg PO Q4H PRN PRN Reason: PAIN LEVEL 1-3 Stop: 12/12/18 17:48 Last Admin: 12/09/18 22:03 Dose: 5 mg Oxycodone HCl (Roxicodone -) 10 mg PO Q4H PRN PRN Reason: PAIN LEVEL 4-6 Stop: 12/12/18 17:49 Last Admin: 12/10/18 02:20 Dose: 10 mg Paroxetine HCl (Paxil -) 10 mg PO DAILY [facility] Last Admin: 12/10/18 09:40 Dose: 10 mg Rosuvastatin Calcium (Crestor -) 10 mg PO [facility] Laboratory Results - last 24 hr 12/09/18 12/09/18 12/09/18 15:35 15:57 18:20 WBC 8.1 RBC 4.28 Hgb 12.8 Hct 39.8 MCV 92.8 MCH 29.9 MCHC 32.2 RDW 15.7 Plt Count 129 L MPV 8.6 Sodium Potassium Chloride Carbon Dioxide Anion Gap BUN Creatinine Creat Clearance w eGFR Random Glucose Calcium Urine Color Yellow Urine Appearance Clear Urine pH 5.0 Ur Specific Agra 1.014 Urine Protein Trace Urine Glucose (UA) Negative Urine Ketones Negative Urine Blood Negative Urine Nitrite Negative Urine Bilirubin Negative Urine Urobilinogen 0.2 Ur Leukocyte Esterase Negative Blood Type A POSITIVE Antibody Screen Negative Crossmatch IS Only See Detail 12/09/18 12/10/18 12/10/18 18:20 10:23 10:23 WBC 7.4 RBC 3.99 L Hgb 11.9 Hct 36.9 MCV 92.3 MCH 29.9 MCHC 32.4 RDW 15.7 Plt Count 112 L MPV 8.6 Sodium 138 136 Potassium 5.3 H 4.9 Chloride 112 H 108 H Carbon Dioxide 18 L 20 L Anion Gap 8 7 L BUN 34 H 33 H Creatinine 1.8 H 1.9 H Creat Clearance w eGFR 36.30 34.11 Random Glucose 105 89 Calcium 8.6 8.4 L Urine Color Urine Appearance Urine pH Ur Specific Ag[place] Urine Protein Urine Glucose (UA) Urine Ketones Urine Blood Urine Nitrite Urine Bilirubin Urine Urobilinogen Ur Leukocyte Esterase Blood Type Antibody Screen Crossmatch IS Only Vital Signs Temperature 98.6 F 12/10/18 14:00 Pulse Rate 75 12/10/18 14:00 Respiratory Rate 18 12/10/18 14:00 Blood Pressure 93/62 12/10/18 14:00 O2 Sat by Pulse Oximetry (%) 99 12/10/18 10:00 CC: some overnight pain; could not urinate ``````````````````````````````````````` skin--some ecchymosis on arms head--NC heart--RR lungs--clear distant abd--soft, BS+ ext--Rt LE hip dressing clean neuro--awake; alert; speech clear; cogn intact `````````````````` Summ > s/p ORIF--Rt hip; was able to stand w/ PT todayPLAN: hope to send to SNF for rehab > Ischemic heart dz--with CRI & LVDysf; BP usually runs on low end, but seems compensated so far PLAN: cont BB, will restart Aldactone in Am > acute urinary retention--post OP; sethley 2nd effect of opiates and anesth > on usp antithrombosis--will watch CBC `````````````````` Dr Desai Problem List - Problems (1) Hip fracture Code(s): S72.009A - FRACTURE OF UNSP PART OF NECK OF UNSP FEMUR, INIT Qualifiers: Encounter type: initial encounter Fracture type: closed Laterality: right Qualified Code(s): S72.001A - Fracture of unspecified part of neck of right femur, initial encounter for closed fracture (2) 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 Code(s): I50.42 - CHRONIC COMBINED SYSTOLIC AND DIASTOLIC HRT FAIL (3) S/P TAVR (transcatheter aortic valve replacement) Code(s): Z95.2 - PRESENCE OF PROSTHETIC HEART VALVE (4) Chronic renal insufficiency, stage III (moderate) Code(s): N18.3 - CHRONIC KIDNEY DISEASE, STAGE 3 (MODERATE) (5) Anxiety and depression Code(s): F41.9 - ANXIETY DISORDER, UNSPECIFIED; F32.9 - MAJOR DEPRESSIVE DISORDER, SINGLE EPISODE, UNSPECIFIED (6) Atrial fibrillation Code(s): I48.91 - UNSPECIFIED ATRIAL FIBRILLATION Qualifiers: Atrial fibrillation type: unspecified Qualified Code(s): I48.91 - Unspecified atrial fibrillation (7) Carotid occlusion, left Code(s): I65.22 - OCCLUSION AND STENOSIS OF LEFT CAROTID ARTERY (8) Hypothyroid Code(s): E03.9 - HYPOTHYROIDISM, UNSPECIFIED Qualifiers: Hypothyroidism type: acquired Qualified Code(s): E03.9 - Hypothyroidism, unspecified (9) Elderly person living alone Code(s): Z60.2 - PROBLEMS RELATED TO LIVING ALONE (10) Presence of combination internal cardiac defibrillator (ICD) and pacemaker Code(s): Z95.810 - PRESENCE OF AUTOMATIC (IMPLANTABLE) CARDIAC DEFIBRILLATOR (11) Encounter for long-term use of antiplatelets/antithrombotics Code(s): Z79.02 - SHELTER (CURRENT) USE OF ANTITHROMBOTICS/ANTIPLATELETS
[2018-12-10] MEDS: ROSUVASTATIN CA 10 MG TABLET (FP) PO SCH (21:20)
[2018-12-10] MEDS: LACTATED RINGERS SOLUTION 1,000 ML IV SCH (21:21)
[2018-12-10] MEDS ORDERED: ROSUVASTATIN CA 10 MG TABLET (FP) PO SCH (22:00)
[2018-12-11 05:43] LABS: HEMATOCRIT 34.7 % (35.4-49); HEMOGLOBIN 11.3 GM/dL (11.7-16.9); MCHC 32.7 g/dl (32.0-35.9); MEAN CELL VOLUME 91.8 fl (80-96); MEAN PLT VOLUME 8.4 fl (7.5-11.1); PLATELET COUNT 99 K/MM3 (134-434); RBC 3.79 M/mm3 (4.00-5.60); RDW 15.7 % (11.9-15.9); WHITE BLOOD COUNT 7.5 K/mm3 (4.0-10.0)
[2018-12-11] MEDS: LEVOTHYROXINE NA 75 MCG TABLET (FP) PO SCH (06:16)
[2018-12-11 06:18] LABS: ANION GAP 7 MMOL/L (8-16); BLOOD UREA NITROGEN 31 mg/dL (7-18); CALCIUM 7.9 mg/dL (8.5-10.1); CHLORIDE 108 mmol/L (98-107); CO2 21 mmol/L (21-32); CREATININE 2.1 mg/dL (0.55-1.3); GLUCOSE,RANDOM 111 mg/dL (74-106); POTASSIUM 5.3 mmol/L (3.5-5.1); SODIUM 136 mmol/L (136-145); URIC ACID 7.1 mg/dL (2.6-7.2)
[2018-12-11] MEDS: CARVEDILOL 12.5 MG TABLET (FP) PO SCH ×2 (09:31→21:27)
[2018-12-11] MEDS: SPIRONOLACTONE 25 MG TABLET (FP) PO SCH (09:31)
[2018-12-11] MEDS: PARoxetine HCL 10 MG TABLET (FP) PO SCH (09:32)
[2018-12-11] MEDS: ENOXAPARIN NA (PORCINE) 40 MG/0.4 ML DISP.SYRIN SQ SCH (09:32)
[2018-12-11] MEDS: ASPIRIN COATED 81 MG TABLET.EC PO SCH (09:32)
[2018-12-11] MEDS: CLOPIDOGREL BISULFATE 75 MG TABLET (FP) PO SCH (09:32)
--- NOTE | 2018-12-11 12:37 | PN ---
Progress Note, Physician - Current Medication List Current Medications: Active Medications Aspirin (Ecotrin -) 81 mg PO DAILY [facility] Last Admin: 12/11/18 09:32 Dose: 81 mg Carvedilol (Coreg -) 12.5 mg PO BID [facility] Last Admin: 12/11/18 09:31 Dose: 12.5 mg Clopidogrel Bisulfate (Plavix -) 75 mg PO DAILY [facility] Last Admin: 12/11/18 09:32 Dose: 75 mg Enoxaparin Sodium (Lovenox -) 40 mg SQ DAILY [facility] Last Admin: 12/11/18 09:32 Dose: 40 mg Levothyroxine Sodium (Synthroid -) 75 mcg PO DAILY@0700 [facility] Last Admin: 12/11/18 06:16 Dose: 75 mcg Morphine Sulfate (Morphine Sulfate) 4 mg IVPUSH Q4H PRN PRN Reason: PAIN LEVEL 7 - 10 Last Admin: 12/10/18 03:12 Dose: 4 mg Oxycodone HCl (Roxicodone -) 5 mg PO Q4H PRN PRN Reason: PAIN LEVEL 1-3 Stop: 12/12/18 17:48 Last Admin: 12/09/18 22:03 Dose: 5 mg Oxycodone HCl (Roxicodone -) 10 mg PO Q4H PRN PRN Reason: PAIN LEVEL 4-6 Stop: 12/12/18 17:49 Last Admin: 12/10/18 21:21 Dose: 10 mg Paroxetine HCl (Paxil -) 10 mg PO DAILY [facility] Last Admin: 12/11/18 09:32 Dose: 10 mg Rosuvastatin Calcium (Crestor -) 10 mg PO HS [facility] Last Admin: 12/10/18 21:20 Dose: 10 mg Spironolactone (Aldactone -) 12.5 mg PO DAILY [facility] Last Admin: 12/11/18 09:31 Dose: 12.5 mg - Objective Vital Signs: Vital Signs Temperature 98.5 F 12/11/18 06:00 Pulse Rate 75 12/11/18 06:00 Respiratory Rate 18 12/11/18 06:00 Blood Pressure 88/62 L 12/11/18 06:00 O2 Sat by Pulse Oximetry (%) 99 12/10/18 21:00 Eyes: Yes: WNL, Conjunctiva Clear, EOM Intact HENT: Yes: WNL, Atraumatic, Normocephalic Neck: Yes: WNL, Supple, Trachea Midline Cardiovascular: Yes: WNL, Regular Rate and Rhythm Respiratory: Yes: WNL, Regular, CTA Bilaterally Gastrointestinal: Yes: WNL, Normal Bowel Sounds Genitourinary: Yes: WNL Musculoskeletal: Yes: WNL Extremities: Yes: WNL Edema: No Integumentary: Yes: WNL Neurological: Yes: WNL, Alert, Oriented ...Motor Strength: WNL Psychiatric: Yes: WNL Labs: CBC, BMP 12/11/18 05:30 12/11/18 05:30 INR, PTT INR 1.09 (0.83-1.09) 12/09/18 11:44 Assessment/Plan 1. Post mechanical fall resulting in right hip fracture, no LOC - patient triped stepping down the curb. 2. s/p AVR , MV repair and recent TAVR CHF systolic chronic EF 10% 4. [employer]-D implantation for primary prophylaxis 5. HTN 6. Hypercholesterolemia 7. Hypothyroidism CRI PLAN: 1. Echocardiography was done recently with severe LV systolic dysfunction and presence of TAVR functioning normally. Also has mild to moderate MR and TR. 2. Continue ASA and Plavix 3. Continue current cardiac medications including Carvedilol. Aldactone and Furosemide can be resumed after surgery. 4. Continue Rosuvastatin 5. Telemetry monitoring post op 6. PT and rehab
--- NOTE | 2018-12-11 15:52 | PN ---
Progress Note (short form) - Note Progress Note: Current Medications Aspirin (Ecotrin -) 81 mg PO DAILY [facility] Last Admin: 12/11/18 09:32 Dose: 81 mg Carvedilol (Coreg -) 12.5 mg PO BID [facility] Last Admin: 12/11/18 09:31 Dose: 12.5 mg Clopidogrel Bisulfate (Plavix -) 75 mg PO DAILY [facility] Last Admin: 12/11/18 09:32 Dose: 75 mg Enoxaparin Sodium (Lovenox -) 40 mg SQ DAILY [facility] Last Admin: 12/11/18 09:32 Dose: 40 mg Levothyroxine Sodium (Synthroid -) 75 mcg PO DAILY@0700 [facility] Last Admin: 12/11/18 06:16 Dose: 75 mcg Morphine Sulfate (Morphine Sulfate) 4 mg IVPUSH Q4H PRN PRN Reason: PAIN LEVEL 7 - 10 Last Admin: 12/10/18 03:12 Dose: 4 mg Oxycodone HCl (Roxicodone -) 5 mg PO Q4H PRN PRN Reason: PAIN LEVEL 1-3 Stop: 12/12/18 17:48 Last Admin: 12/09/18 22:03 Dose: 5 mg Oxycodone HCl (Roxicodone -) 10 mg PO Q4H PRN PRN Reason: PAIN LEVEL 4-6 Stop: 12/12/18 17:49 Last Admin: 12/10/18 21:21 Dose: 10 mg Paroxetine HCl (Paxil -) 10 mg PO DAILY [facility] Last Admin: 12/11/18 09:32 Dose: 10 mg Rosuvastatin Calcium (Crestor -) 10 mg PO HS [facility] Last Admin: 12/10/18 21:20 Dose: 10 mg Spironolactone (Aldactone -) 12.5 mg PO DAILY [facility] Last Admin: 12/11/18 09:31 Dose: 12.5 mg Laboratory Results - last 24 hr 12/11/18 12/11/18 05:30 05:30 WBC 7.5 RBC 3.79 L Hgb 11.3 L Hct 34.7 L MCV 91.8 MCH 30.0 MCHC 32.7 RDW 15.7 Plt Count 99 L MPV 8.4 Sodium 136 Potassium 5.3 H Chloride 108 H Carbon Dioxide 21 Anion Gap 7 L BUN 31 H Creatinine 2.1 H Creat Clearance w eGFR 30.39 Random Glucose 111 H Uric Acid 7.1 Calcium 7.9 L Vital Signs Temperature 98.5 F 12/11/18 10:00 Pulse Rate 76 12/11/18 10:00 Respiratory Rate 18 12/11/18 10:00 Blood Pressure 90/62 12/11/18 10:00 O2 Sat by Pulse Oximetry (%) 99 12/11/18 10:00 CC: some overnight pain; could not again urinate ``````````````````````````````````````` skin--some ecchymosis on arms head--NC heart--RR lungs--clear distant abd--soft, BS+ ext--Rt LE hip dressing clean neuro--awake; alert; speech clear; cogn intact `````````````````` Summ > s/p ORIF--Rt hip; cont Std PT, PLAN: hope to send to SNF for rehab > Ischemic heart dz--with CRI & LVDysf; BP usually runs on low end, but seems compensated so far PLAN: cont BB, aldactone > acute urinary retention--post OP; candelario 2nd effect of opiates: Colin inserted PLAN: start Flomax > on group home antithrombosis--slight drop in H/h; will watch CBC `````````````````` Dr Desai Problem List - Problems (1) Hip fracture Code(s): S72.009A - FRACTURE OF UNSP PART OF NECK OF UNSP FEMUR, INIT Qualifiers: Encounter type: initial encounter Fracture type: closed Laterality: right Qualified Code(s): S72.001A - Fracture of unspecified part of neck of right femur, initial encounter for closed fracture (2) 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 Code(s): I50.42 - CHRONIC COMBINED SYSTOLIC AND DIASTOLIC HRT FAIL (3) S/P TAVR (transcatheter aortic valve replacement) Code(s): Z95.2 - PRESENCE OF PROSTHETIC HEART VALVE (4) Chronic renal insufficiency, stage III (moderate) Code(s): N18.3 - CHRONIC KIDNEY DISEASE, STAGE 3 (MODERATE) (5) Anxiety and depression Code(s): F41.9 - ANXIETY DISORDER, UNSPECIFIED; F32.9 - MAJOR DEPRESSIVE DISORDER, SINGLE EPISODE, UNSPECIFIED (6) Atrial fibrillation Code(s): I48.91 - UNSPECIFIED ATRIAL FIBRILLATION Qualifiers: Atrial fibrillation type: unspecified Qualified Code(s): I48.91 - Unspecified atrial fibrillation (7) Carotid occlusion, left Code(s): I65.22 - OCCLUSION AND STENOSIS OF LEFT CAROTID ARTERY (8) Hypothyroid Code(s): E03.9 - HYPOTHYROIDISM, UNSPECIFIED Qualifiers: Hypothyroidism type: acquired Qualified Code(s): E03.9 - Hypothyroidism, unspecified (9) Elderly person living alone Code(s): Z60.2 - PROBLEMS RELATED TO LIVING ALONE (10) Presence of combination internal cardiac defibrillator (ICD) and pacemaker Code(s): Z95.810 - PRESENCE OF AUTOMATIC (IMPLANTABLE) CARDIAC DEFIBRILLATOR (11) Encounter for long-term use of antiplatelets/antithrombotics Code(s): Z79.02 - PRISON (CURRENT) USE OF ANTITHROMBOTICS/ANTIPLATELETS
[2018-12-11] MEDS: oxyCODONE HCL 5 MG TABLET PO PRN (16:19)
--- NOTE | 2018-12-11 20:49 | PN ---
Progress Note (short form) - Note Progress Note: ORTHOPEDIC SURGERY PROGRESS NOTE Department of Orthopedic Surgery SUBJECTIVE No acute events overnight. Right hip pain improving. Denies chest pain, shortness of breath, or calf pain. No nausea or vomiting. Tolerating oral intake. PHYSICAL EXAMINATION General: Alert, oriented, cooperative and no distress. Lower Extremity: Dressing clean and dry. No tenderness to palpation. Compartments soft. EHL/TA/GS motor intact; SILT distally; 2+ DP pulses; Cap refill brisk. DVT Exam: No evidence of DVT seen on physical exam; No cords or calf tenderness ; No significant calf/ankle edema. Intake & Output 12/09/18 12/10/18 12/11/18 23:59 23:59 23:59 Intake Total 675 1695 295 Output Total 50 851 600 Balance 625 844 -305 Intake: IV 675 425 175 Lactated Ringers Solution 425 175 1,000 ml @ 25 mls/hr IV ASDIR [facility] Rx#:[id number] IVPB 100 Oral 1170 120 Output: Urine 851 600 Colin 600 Straight Cath 851 Estimated Blood Loss 50 Other: Voiding Method Urinal Urinal Indwelling Catheter # Unmeasured Voids Straight Cath 0 Bowel Movement No No Weight 173 lb Height 5 ft 10 in Body Mass Index (BMI) 24.8 Weight Measurement Method Estimated by Staff Active Medications Generic Name Dose Route Start Last Admin Trade Name Freq PRN Reason Stop Dose Admin Aspirin 81 mg 12/10/18 10:00 12/11/18 09:32 Ecotrin - PO 81 mg DAILY [facility] Administration Carvedilol 12.5 mg 12/10/18 10:00 12/11/18 09:31 Coreg - PO 12.5 mg BID [facility] Administration Clopidogrel Bisulfate 75 mg 12/10/18 10:00 12/11/18 09:32 Plavix - PO 75 mg DAILY [facility] Administration Enoxaparin Sodium 40 mg 12/10/18 10:00 12/11/18 09:32 Lovenox - SQ 40 mg DAILY [facility] Administration Levothyroxine Sodium 75 mcg 12/10/18 07:00 12/11/18 06:16 Synthroid - PO 75 mcg DAILY@0700 [facility] Administration Oxycodone HCl 5 mg 12/09/18 17:48 12/09/18 22:03 Roxicodone - PO 12/12/18 17:48 5 mg Q4H PRN Administration PAIN LEVEL 1-3 Oxycodone HCl 10 mg 12/09/18 17:49 12/11/18 16:19 Roxicodone - PO 12/12/18 17:49 10 mg Q4H PRN Administration PAIN LEVEL 4-6 Paroxetine HCl 10 mg 12/10/18 10:00 12/11/18 09:32 Paxil - PO 10 mg DAILY [facility] Administration Rosuvastatin Calcium 10 mg 12/10/18 22:00 12/10/18 21:20 Crestor - PO 10 mg HS [facility] Administration Spironolactone 12.5 mg 12/11/18 10:00 12/11/18 09:31 Aldactone - PO 12.5 mg DAILY [facility] Administration Tamsulosin HCl 0.4 mg 12/12/18 08:30 Flomax - PO DAILY@0830 [facility] Vital Signs (last) Temp Pulse Resp BP Pulse Ox 97.6 F 79 18 93/57 L 99 12/11/18 18:00 12/11/18 18:00 12/11/18 18:00 12/11/18 18:00 12/11/18 10:00 Laboratory (coagulation) PT with INR 12.90 SEC (9.7-13.0) 12/09/18 11:44 Laboratory 12/11/18 05:30 12/11/18 05:30 ASSESSMENT AND PLAN POD #2 Right hip cephalomedullary nail - Colin reinserted for retention - Dressing change tomorrow - Pain control: minimize narcotic use - DVT prophylaxis: Lovenox for 30 days postoperatively - Ice right hip incisions - Elevate HOB, encourage oral intake - Appreciate medical management (Nutrition optimization, decubitus precautions heel/sacrum) - PT/OT; WBAT
[2018-12-11] MEDS: ROSUVASTATIN CA 10 MG TABLET (FP) PO SCH (21:27)
[2018-12-12] MEDS: LEVOTHYROXINE NA 75 MCG TABLET (FP) PO SCH (06:09)
[2018-12-12 06:37] LABS: HEMATOCRIT 31.5 % (35.4-49); HEMOGLOBIN 10.6 GM/dL (11.7-16.9); MCH 30.6 pg (25.7-33.7); MCHC 33.7 g/dl (32.0-35.9); MEAN PLT VOLUME 8.5 fl (7.5-11.1); PLATELET COUNT 99 K/MM3 (134-434); RBC 3.47 M/mm3 (4.00-5.60); RDW 15.6 % (11.9-15.9); WHITE BLOOD COUNT 7.2 K/mm3 (4.0-10.0)
[2018-12-12 07:12] LABS: ANION GAP 8 MMOL/L (8-16); BLOOD UREA NITROGEN 33 mg/dL (7-18); CALCIUM 8.1 mg/dL (8.5-10.1); CHLORIDE 107 mmol/L (98-107); CO2 20 mmol/L (21-32); GLUCOSE,RANDOM 105 mg/dL (74-106); POTASSIUM 4.6 mmol/L (3.5-5.1); SODIUM 135 mmol/L (136-145)
--- NOTE | 2018-12-12 08:47 | PN ---
Progress Note (short form) - Note Progress Note: ORTHOPEDIC SURGERY PROGRESS NOTE Department of Orthopedic Surgery SUBJECTIVE No acute events overnight. Complains of some heel pain. Denies chest pain, shortness of breath, or calf pain. No nausea or vomiting. Tolerating oral intake. Pain control improving. Intake & Output 12/10/18 12/11/18 12/12/18 23:59 23:59 23:59 Intake Total 1695 415 Output Total 851 1200 300 Balance 844 -785 -300 Intake: IV 425 175 Lactated Ringers Solution 425 175 1,000 ml @ 25 mls/hr IV ASDIR [facility] Rx#:[id number] IVPB 100 Oral 1170 240 Output: Urine 851 1200 300 Colin 1200 300 Straight Cath 851 Other: Voiding Method Urinal Indwelling Catheter # Unmeasured Voids Straight Cath 0 Bowel Movement No No Active Medications Generic Name Dose Route Start Last Admin Trade Name Freq PRN Reason Stop Dose Admin Aspirin 81 mg 12/10/18 10:00 12/11/18 09:32 Ecotrin - PO 81 mg DAILY [facility] Administration Carvedilol 12.5 mg 12/10/18 10:00 12/11/18 21:27 Coreg - PO 12.5 mg BID [facility] Administration Clopidogrel Bisulfate 75 mg 12/10/18 10:00 12/11/18 09:32 Plavix - PO 75 mg DAILY [facility] Administration Enoxaparin Sodium 40 mg 12/10/18 10:00 12/11/18 09:32 Lovenox - SQ 40 mg DAILY [facility] Administration Levothyroxine Sodium 75 mcg 12/10/18 07:00 12/12/18 06:09 Synthroid - PO 75 mcg DAILY@0700 [facility] Administration Oxycodone HCl 5 mg 12/09/18 17:48 12/09/18 22:03 Roxicodone - PO 12/12/18 17:48 5 mg Q4H PRN Administration PAIN LEVEL 1-3 Oxycodone HCl 10 mg 12/09/18 17:49 12/11/18 16:19 Roxicodone - PO 12/12/18 17:49 10 mg Q4H PRN Administration PAIN LEVEL 4-6 Paroxetine HCl 10 mg 12/10/18 10:00 12/11/18 09:32 Paxil - PO 10 mg DAILY [facility] Administration Rosuvastatin Calcium 10 mg 12/10/18 22:00 12/11/18 21:27 Crestor - PO 10 mg HS [facility] Administration Spironolactone 12.5 mg 12/11/18 10:00 12/11/18 09:31 Aldactone - PO 12.5 mg DAILY [facility] Administration Tamsulosin HCl 0.4 mg 12/12/18 08:30 Flomax - PO DAILY@0830 [facility] Vital Signs (last) Temp Pulse Resp BP Pulse Ox 97.9 F 79 20 88/60 L 98 12/12/18 06:40 12/12/18 06:40 12/12/18 06:40 12/12/18 06:40 12/11/18 21:00 Laboratory (coagulation) PT with INR 12.90 SEC (9.7-13.0) 12/09/18 11:44 Laboratory 12/12/18 05:30 12/12/18 05:30 PHYSICAL EXAMINATION General: Alert, oriented, cooperative and no distress. Lower Extremity: Dressing clean dry and intact. [place] intact. No drainage or erythema. Tender to palpation left heel. EHL/TA/GS motor intact; SILT distally; 2+ DP pulses; Cap refill brisk. DVT Exam: No evidence of DVT seen on physical exam; No cords or calf tenderness ; No significant calf/ankle edema. ASSESSMENT AND PLAN Otis Willett is an 83 year old male POD #3 status post right hip cephalomedullary nail. Doing well. - Dressing changed - Continue with physical therapy; WBAT with assistance - Heel pads - Pain control: minimize narcotic use - DVT prophylaxis: Lovenox - Ice - Elevate HOB, encourage oral intake - Appreciate medical management (Nutrition optimization, decubitus precautions heel/sacrum)
[2018-12-12] MEDS ORDERED: PT OWN MED DRAWER 7, Y5N ONE (10:04)
[2018-12-12] MEDS: ASPIRIN COATED 81 MG TABLET.EC PO SCH (10:10)
[2018-12-12] MEDS: SPIRONOLACTONE 25 MG TABLET (FP) PO SCH (10:10)
[2018-12-12] MEDS: CARVEDILOL 12.5 MG TABLET (FP) PO SCH ×2 (10:11→21:35)
[2018-12-12] MEDS: PARoxetine HCL 10 MG TABLET (FP) PO SCH (10:11)
[2018-12-12] MEDS: TAMSULOSIN HCL 0.4 MG CAP PO SCH (10:11)
[2018-12-12] MEDS: CLOPIDOGREL BISULFATE 75 MG TABLET (FP) PO SCH (10:11)
[2018-12-12] MEDS: ENOXAPARIN NA (PORCINE) 40 MG/0.4 ML DISP.SYRIN SQ SCH (10:11)
[2018-12-12] MEDS ORDERED: guaiFENesin/D-METHORPHAN HB 10 ML UNIT-DOSE CUPS PO PRN (10:41)
--- NOTE | 2018-12-12 12:15 | PN ---
Progress Note (short form) - Note Progress Note: ############## medical ################### Current Medications Aspirin (Ecotrin -) 81 mg PO DAILY [facility] Last Admin: 12/12/18 10:10 Dose: 81 mg Carvedilol (Coreg -) 12.5 mg PO BID [facility] Last Admin: 12/12/18 10:11 Dose: 12.5 mg Clopidogrel Bisulfate (Plavix -) 75 mg PO DAILY [facility] Last Admin: 12/12/18 10:11 Dose: 75 mg Enoxaparin Sodium (Lovenox -) 40 mg SQ DAILY [facility] Last Admin: 12/12/18 10:11 Dose: 40 mg Guaifenesin (Robitussin Dm -) 10 ml PO Q6H PRN PRN Reason: COUGH Last Admin: 12/12/18 11:21 Dose: 10 ml Levothyroxine Sodium (Synthroid -) 75 mcg PO DAILY@0700 [facility] Last Admin: 12/12/18 06:09 Dose: 75 mcg Oxycodone HCl (Roxicodone -) 5 mg PO Q4H PRN PRN Reason: PAIN LEVEL 1-3 Stop: 12/12/18 17:48 Last Admin: 12/09/18 22:03 Dose: 5 mg Oxycodone HCl (Roxicodone -) 10 mg PO Q4H PRN PRN Reason: PAIN LEVEL 4-6 Stop: 12/12/18 17:49 Last Admin: 12/11/18 16:19 Dose: 10 mg Paroxetine HCl (Paxil -) 10 mg PO DAILY [facility] Last Admin: 12/12/18 10:11 Dose: 10 mg Rosuvastatin Calcium (Crestor -) 10 mg PO HS [facility] Last Admin: 12/11/18 21:27 Dose: 10 mg Spironolactone (Aldactone -) 12.5 mg PO DAILY [facility] Last Admin: 12/12/18 10:10 Dose: 12.5 mg Tamsulosin HCl (Flomax -) 0.4 mg PO DAILY@0830 [facility] Last Admin: 12/12/18 10:11 Dose: 0.4 mg Laboratory Results - last 24 hr 12/09/18 12/12/18 12/12/18 15:35 05:30 05:30 WBC 7.2 RBC 3.47 L Hgb 10.6 L Hct 31.5 L MCV 91.0 MCH 30.6 MCHC 33.7 RDW 15.6 Plt Count 99 L MPV 8.5 Sodium 135 L Potassium 4.6 Chloride 107 Carbon Dioxide 20 L Anion Gap 8 BUN 33 H Creatinine 2.0 H Creat Clearance w eGFR 32.15 Random Glucose 105 Calcium 8.1 L Crossmatch IS Only See Detail Vital Signs Period Temp Pulse Resp BP Sys/Ramirez Pulse Ox Last 24 Hr 97.6 F-98.4 F 74-79 16-20 85-99/47-64 98 CC: coughing this AM ``````````````````````````````````````` skin--some ecchymosis on arms head--NC heart--RR lungs--clear abd--soft, BS+ ext--Rt LE hip dressing clean neuro--awake; alert; speech clear; cogn intact; moves all Extrems `````````````````` Summ > cough--CXR w/ NAP; afebrile in NAD, will RX Wenceslao DM for now > s/p ORIF--Rt hip; cont Std PT, PLAN: hope to send to SNF for rehab > Ischemic heart dz--with CRI & LVDysf; BP usually runs on low end, but seems compensated so far PLAN: cont BB, aldactone > acute urinary retention--post OP; candelario 2nd effect of opiates: Colin inserted PLAN: start Flomax > on skilled nursing antithrombosis--slight drop in H/h; will watch CBC `````````````````` Dr Desai Problem List - Problems (1) Hip fracture Code(s): S72.009A - FRACTURE OF UNSP PART OF NECK OF UNSP FEMUR, INIT Qualifiers: Encounter type: initial encounter Fracture type: closed Laterality: right Qualified Code(s): S72.001A - Fracture of unspecified part of neck of right femur, initial encounter for closed fracture (2) 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 Code(s): I50.42 - CHRONIC COMBINED SYSTOLIC AND DIASTOLIC HRT FAIL (3) S/P TAVR (transcatheter aortic valve replacement) Code(s): Z95.2 - PRESENCE OF PROSTHETIC HEART VALVE (4) Chronic renal insufficiency, stage III (moderate) Code(s): N18.3 - CHRONIC KIDNEY DISEASE, STAGE 3 (MODERATE) (5) Anxiety and depression Code(s): F41.9 - ANXIETY DISORDER, UNSPECIFIED; F32.9 - MAJOR DEPRESSIVE DISORDER, SINGLE EPISODE, UNSPECIFIED (6) Atrial fibrillation Code(s): I48.91 - UNSPECIFIED ATRIAL FIBRILLATION Qualifiers: Atrial fibrillation type: unspecified Qualified Code(s): I48.91 - Unspecified atrial fibrillation (7) Carotid occlusion, left Code(s): I65.22 - OCCLUSION AND STENOSIS OF LEFT CAROTID ARTERY (8) Hypothyroid Code(s): E03.9 - HYPOTHYROIDISM, UNSPECIFIED Qualifiers: Hypothyroidism type: acquired Qualified Code(s): E03.9 - Hypothyroidism, unspecified (9) Elderly person living alone Code(s): Z60.2 - PROBLEMS RELATED TO LIVING ALONE (10) Presence of combination internal cardiac defibrillator (ICD) and pacemaker Code(s): Z95.810 - PRESENCE OF AUTOMATIC (IMPLANTABLE) CARDIAC DEFIBRILLATOR (11) Encounter for long-term use of antiplatelets/antithrombotics Code(s): Z79.02 - PANEL COVERER (CURRENT) USE OF ANTITHROMBOTICS/ANTIPLATELETS
[2018-12-12] MEDS: ROSUVASTATIN CA 10 MG TABLET (FP) PO SCH (21:35)
[2018-12-13] MEDS: LEVOTHYROXINE NA 75 MCG TABLET (FP) PO SCH (06:25)
[2018-12-13 06:51] LABS: HEMATOCRIT 29.7 % (35.4-49); HEMOGLOBIN 9.9 GM/dL (11.7-16.9); MCH 30.1 pg (25.7-33.7); MCHC 33.3 g/dl (32.0-35.9); MEAN CELL VOLUME 90.4 fl (80-96); MEAN PLT VOLUME 8.4 fl (7.5-11.1); PLATELET COUNT 120 K/MM3 (134-434); RBC 3.28 M/mm3 (4.00-5.60); RDW 15.8 % (11.9-15.9); WHITE BLOOD COUNT 6.3 K/mm3 (4.0-10.0)
[2018-12-13 07:12] LABS: ANION GAP 9 MMOL/L (8-16); BLOOD UREA NITROGEN 34 mg/dL (7-18); CALCIUM 8.3 mg/dL (8.5-10.1); CHLORIDE 110 mmol/L (98-107); CO2 20 mmol/L (21-32); CREATININE 1.8 mg/dL (0.55-1.3); GLUCOSE,RANDOM 94 mg/dL (74-106); POTASSIUM 4.3 mmol/L (3.5-5.1); SODIUM 138 mmol/L (136-145)
--- NOTE | 2018-12-13 09:09 | PN ---
Progress Note, Physician Chief Complaint: PT A&OX3; OOB in chair; no chest pain or dyspnea; + cough. Walked today with physical therapist assistance. History of Present Illness: The patient is an 83 year old white male, with a significant past medical history of HTN, severe systolic CHF, s/p TAVR, HTN, CAD, Gout, OA, Hypothyroidism, and anxiety, who presents to the emergency department s/p mechanical fall. As per patient, he tripped and fell subsequently landing on his right right hip. - Current Medication List Current Medications: Active Medications Aspirin (Ecotrin -) 81 mg PO DAILY [facility] Last Admin: 12/12/18 10:10 Dose: 81 mg Carvedilol (Coreg -) 12.5 mg PO BID [facility] Last Admin: 12/12/18 21:35 Dose: 12.5 mg Clopidogrel Bisulfate (Plavix -) 75 mg PO DAILY [facility] Last Admin: 12/12/18 10:11 Dose: 75 mg Enoxaparin Sodium (Lovenox -) 40 mg SQ DAILY [facility] Last Admin: 12/12/18 10:11 Dose: 40 mg Guaifenesin (Robitussin Dm -) 10 ml PO Q6H PRN PRN Reason: COUGH Last Admin: 12/12/18 11:21 Dose: 10 ml Levothyroxine Sodium (Synthroid -) 75 mcg PO DAILY@0700 [facility] Last Admin: 12/13/18 06:25 Dose: 75 mcg Paroxetine HCl (Paxil -) 10 mg PO DAILY [facility] Last Admin: 12/12/18 10:11 Dose: 10 mg Rosuvastatin Calcium (Crestor -) 10 mg PO HS [facility] Last Admin: 12/12/18 21:35 Dose: 10 mg Spironolactone (Aldactone -) 12.5 mg PO DAILY [facility] Last Admin: 12/12/18 10:10 Dose: 12.5 mg Tamsulosin HCl (Flomax -) 0.4 mg PO DAILY@0830 [facility] Last Admin: 12/12/18 10:11 Dose: 0.4 mg - Objective Vital Signs: Vital Signs Temperature 97.8 F 12/13/18 06:00 Pulse Rate 75 12/13/18 06:00 Respiratory Rate 18 12/13/18 06:00 Blood Pressure 83/59 L 12/13/18 06:00 O2 Sat by Pulse Oximetry (%) 100 12/12/18 21:00 Constitutional: Yes: Calm Eyes: Yes: WNL HENT: Yes: WNL Labs: CBC, BMP 12/13/18 06:00 12/13/18 06:00 INR, PTT INR 1.09 (0.83-1.09) 12/09/18 11:44 Problem List - Problems (1) 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 Restart ACEI. F/u BUN/Cr, Is and Os, daily weight; electrolytes. Code(s): I50.42 - CHRONIC COMBINED SYSTOLIC AND DIASTOLIC HRT FAIL (2) Chronic renal insufficiency, stage III (moderate) Code(s): N18.3 - CHRONIC KIDNEY DISEASE, STAGE 3 (MODERATE) (3) HTN (hypertension) Code(s): I10 - ESSENTIAL (PRIMARY) HYPERTENSION (4) Hip fracture Assessment/Plan: s/p fracture repair. Continue pahysical therapy. Awaits rehab facility. Code(s): S72.009A - FRACTURE OF UNSP PART OF NECK OF UNSP FEMUR, INIT Qualifiers: Encounter type: initial encounter Fracture type: closed Laterality: right Qualified Code(s): S72.001A - Fracture of unspecified part of neck of right femur, initial encounter for closed fracture (5) S/P TAVR (transcatheter aortic valve replacement) Code(s): Z95.2 - PRESENCE OF PROSTHETIC HEART VALVE (6) AICD (automatic cardioverter/defibrillator) present Code(s): Z95.810 - PRESENCE OF AUTOMATIC (IMPLANTABLE) CARDIAC DEFIBRILLATOR (7) Anxiety and depression Code(s): F41.9 - ANXIETY DISORDER, UNSPECIFIED; F32.9 - MAJOR DEPRESSIVE DISORDER, SINGLE EPISODE, UNSPECIFIED (8) Arteriosclerotic heart disease (ASHD) Code(s): I25.10 - ATHSCL HEART DISEASE OF [place] CORONARY ARTERY W/O ANG PCTRS (9) Hyperlipidemia Code(s): E78.5 - HYPERLIPIDEMIA, UNSPECIFIED Qualifiers: (10) Hypothyroid Code(s): E03.9 - HYPOTHYROIDISM, UNSPECIFIED Qualifiers: Hypothyroidism type: acquired Qualified Code(s): E03.9 - Hypothyroidism, unspecified
[2018-12-13] MEDS ORDERED: PT OWN MED DRAWER 7, Y5N ONE (10:01)
[2018-12-13] MEDS: CLOPIDOGREL BISULFATE 75 MG TABLET (FP) PO SCH (10:06)
[2018-12-13] MEDS: ASPIRIN COATED 81 MG TABLET.EC PO SCH (10:06)
[2018-12-13] MEDS: TAMSULOSIN HCL 0.4 MG CAP PO SCH (10:06)
[2018-12-13] MEDS: SPIRONOLACTONE 25 MG TABLET (FP) PO SCH (10:06)
[2018-12-13] MEDS: ENOXAPARIN NA (PORCINE) 40 MG/0.4 ML DISP.SYRIN SQ SCH (10:08)
[2018-12-13] MEDS: PARoxetine HCL 10 MG TABLET (FP) PO SCH (10:08)
--- NOTE | 2018-12-13 11:12 | PN ---
Progress Note, Physician - Current Medication List Current Medications: Active Medications Aspirin (Ecotrin -) 81 mg PO DAILY [facility] Last Admin: 12/13/18 10:06 Dose: 81 mg Carvedilol (Coreg -) 12.5 mg PO BID [facility] Last Admin: 12/12/18 21:35 Dose: 12.5 mg Clopidogrel Bisulfate (Plavix -) 75 mg PO DAILY [facility] Last Admin: 12/13/18 10:06 Dose: 75 mg Enoxaparin Sodium (Lovenox -) 40 mg SQ DAILY [facility] Last Admin: 12/13/18 10:08 Dose: 40 mg Guaifenesin (Robitussin Dm -) 10 ml PO Q6H PRN PRN Reason: COUGH Last Admin: 12/12/18 11:21 Dose: 10 ml Levothyroxine Sodium (Synthroid -) 75 mcg PO DAILY@0700 [facility] Last Admin: 12/13/18 06:25 Dose: 75 mcg Paroxetine HCl (Paxil -) 10 mg PO DAILY [facility] Last Admin: 12/13/18 10:08 Dose: 10 mg Rosuvastatin Calcium (Crestor -) 10 mg PO HS [facility] Last Admin: 12/12/18 21:35 Dose: 10 mg Spironolactone (Aldactone -) 12.5 mg PO DAILY [facility] Last Admin: 12/13/18 10:06 Dose: 12.5 mg Tamsulosin HCl (Flomax -) 0.4 mg PO DAILY@0830 [facility] Last Admin: 12/13/18 10:06 Dose: 0.4 mg - Objective Vital Signs: Vital Signs Temperature 97.8 F 12/13/18 06:00 Pulse Rate 75 12/13/18 06:00 Respiratory Rate 18 12/13/18 09:00 Blood Pressure 83/59 L 12/13/18 06:00 O2 Sat by Pulse Oximetry (%) 99 12/13/18 09:00 Eyes: Yes: WNL, Conjunctiva Clear, EOM Intact HENT: Yes: WNL, Atraumatic, Normocephalic Neck: Yes: WNL, Supple, Trachea Midline Cardiovascular: Yes: WNL, Regular Rate and Rhythm Respiratory: Yes: WNL, Regular, CTA Bilaterally Gastrointestinal: Yes: WNL, Normal Bowel Sounds Genitourinary: Yes: WNL Musculoskeletal: Yes: WNL Extremities: Yes: WNL Edema: No Integumentary: Yes: WNL Neurological: Yes: WNL, Alert, Oriented ...Motor Strength: WNL Psychiatric: Yes: WNL Labs: CBC, BMP 12/13/18 06:00 12/13/18 06:00 INR, PTT INR 1.09 (0.83-1.09) 12/09/18 11:44 Assessment/Plan - Problems (1) 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 no ACEI due to angioedema F/u BUN/Cr, Is and Os, daily weight; electrolytes. Code(s): I50.42 - CHRONIC COMBINED SYSTOLIC AND DIASTOLIC HRT FAIL (2) Chronic renal insufficiency, stage III (moderate) Code(s): N18.3 - CHRONIC KIDNEY DISEASE, STAGE 3 (MODERATE) (3) HTN (hypertension) Code(s): I10 - ESSENTIAL (PRIMARY) HYPERTENSION (4) Hip fracture Assessment/Plan: s/p fracture repair. Continue pahysical therapy. Awaits rehab facility. Code(s): S72.009A - FRACTURE OF UNSP PART OF NECK OF UNSP FEMUR, INIT Qualifiers: Encounter type: initial encounter Fracture type: closed Laterality: right Qualified Code(s): S72.001A - Fracture of unspecified part of neck of right femur, initial encounter for closed fracture (5) S/P TAVR (transcatheter aortic valve replacement) Code(s): Z95.2 - PRESENCE OF PROSTHETIC HEART VALVE (6) AICD (automatic cardioverter/defibrillator) present Code(s): Z95.810 - PRESENCE OF AUTOMATIC (IMPLANTABLE) CARDIAC DEFIBRILLATOR (7) Anxiety and depression Code(s): F41.9 - ANXIETY DISORDER, UNSPECIFIED; F32.9 - MAJOR DEPRESSIVE DISORDER, SINGLE EPISODE, UNSPECIFIED (8) Arteriosclerotic heart disease (ASHD) Code(s): I25.10 - ATHSCL HEART DISEASE OF [place] CORONARY ARTERY W/O ANG PCTRS (9) Hyperlipidemia Code(s): E78.5 - HYPERLIPIDEMIA, UNSPECIFIED Qualifiers: (10) Hypothyroid Code(s): E03.9 - HYPOTHYROIDISM, UNSPECIFIED Qualifiers: Hypothyroidism type: acquired Qualified Code(s): E03.9 - Hypothyroidism, unspecified
[2018-12-13] MEDS: CARVEDILOL 12.5 MG TABLET (FP) PO SCH ×2 (11:26→13:25)
--- NOTE | 2018-12-13 11:57 | ECHO ---
Name: UTE MISHRA Exam:Adult Echocardiogram Study Date: 12/13/2018 10:52 AM Age: 83 yrs Reason For Study: LVEF Height: 70 in Weight: 173 lb BSA: 2.0 m2 MMode/2D Measurements & Calculations IVSd: 1.4 cm EDV(Teich): 110.3 ml LVIDd: 4.9 cm LVPWd: 1.6 cm Doppler Measurements & Calculations MV E max julio: 113.8 cm/sec Ao V2 max: 238.9 cm/sec MV A max julio: 80.2 cm/sec Ao max P.8 mmHg MV E/A: 1.4 Ao V2 mean: 161.9 cm/sec Ao mean P.3 mmHg Ao V2 VTI: 43.9 cm MR max julio: 309.1 cm/sec TR max julio: 254.6 cm/sec MR max P.2 mmHg TR max P.9 mmHg Med Peak E' Julio: 2.7 cm/sec Med E/e': 42.6 Lat Peak E' Julio: 4.7 cm/sec Lat E/e': 24.0 Procedure A two-dimensional transthoracic echocardiogram with color flow and Doppler was performed. The study w as technically difficult with many images being suboptimal in quality. Left Ventricle The left ventricle is moderately dilated. Left ventricular systolic function is severely reduced. The re is severe global hypokinesis of the left ventricle. Right Ventricle The right ventricle is not well visualized. There is a pacemaker lead in the right ventricle. Atria The left atrium is moderately dilated. The right atrium is moderately dilated. Mitral Valve An annuloplasty ring is noted in the mitral position. There is moderate mitral valve thickening. Ther e is no mitral valve stenosis. There is moderate mitral regurgitation. Tricuspid Valve There is moderate tricuspid valve thickening. There is no tricuspid stenosis. There is moderate tricu spid regurgitation. Right ventricular systolic pressure is normal. Aortic Valve There is a bioprosthetic aortic valve. s/p TAVR valv in valve. Moderate valvular aortic stenosis. No aortic regurgitation is present. Pulmonic Valve The pulmonic valve is not well visualized. Great Vessels The aortic root is normal size. Pericardium/Pleura There is no pericardial effusion. Interpretation Summary The study was technically difficult with many images being suboptimal in quality. The left ventricle is moderately dilated. Left ventricular systolic function is severely reduced. There is severe global hypokinesis of the left ventricle. There is a pacemaker lead in the right ventricle. The left atrium is moderately dilated. The right atrium is moderately dilated. An annuloplasty ring is noted in the mitral position. There is moderate mitral valve thickening. There is moderate mitral regurgitation. There is moderate tricuspid regurgitation. Right ventricular systolic pressure is normal. There is a bioprosthetic aortic valve. s/p TAVR valv in valve Moderate valvular aortic stenosis. No aortic regurgitation is present. MD Ezequiel Kidd 12/13/2018 11:56 AM
--- NOTE | 2018-12-13 13:07 | PN ---
Progress Note (short form) - Note Progress Note: ORTHOPEDIC SURGERY PROGRESS NOTE Department of Orthopedic Surgery SUBJECTIVE No acute events overnight. Right hip pain improving. Denies chest pain, shortness of breath, or calf pain. No nausea or vomiting. Tolerating oral intake. PHYSICAL EXAMINATION General: Alert, oriented, cooperative and no distress. Lower Extremity: Dressing clean and dry. No tenderness to palpation. Compartments soft. EHL/TA/GS motor intact; SILT distally; 2+ DP pulses; Cap refill brisk. DVT Exam: No evidence of DVT seen on physical exam; No cords or calf tenderness ; No significant calf/ankle edema. Intake & Output 12/11/18 12/12/18 12/13/18 23:59 23:59 23:59 Intake Total 415 880 370 Output Total 1200 1150 600 Balance -785 -270 -230 Intake: IV 175 Lactated Ringers Solution 175 1,000 ml @ 25 mls/hr IV ASDIR ANTOINE Rx#:[id number] Oral 240 880 370 Output: Urine 1200 1150 600 Colin 1200 1150 600 Other: Voiding Method Indwelling Catheter Indwelling Catheter Indwelling Catheter # Unmeasured Voids Straight Cath 0 Bowel Movement No No No Active Medications Generic Name Dose Route Start Last Admin Trade Name Freq PRN Reason Stop Dose Admin Aspirin 81 mg 12/10/18 10:00 12/13/18 10:06 Ecotrin - PO 81 mg DAILY [facility] Administration Carvedilol 12.5 mg 12/10/18 10:00 12/13/18 11:26 Coreg - PO Not Given BID [facility] Clopidogrel Bisulfate 75 mg 12/10/18 10:00 12/13/18 10:06 Plavix - PO 75 mg DAILY [facility] Administration Enoxaparin Sodium 40 mg 12/10/18 10:00 12/13/18 10:08 Lovenox - SQ 40 mg DAILY [facility] Administration Guaifenesin 10 ml 12/12/18 10:41 12/12/18 11:21 Robitussin Dm - PO 10 ml Q6H PRN Administration COUGH Levothyroxine Sodium 75 mcg 12/10/18 07:00 12/13/18 06:25 Synthroid - PO 75 mcg DAILY@0700 [facility] Administration Paroxetine HCl 10 mg 12/10/18 10:00 12/13/18 10:08 Paxil - PO 10 mg DAILY [facility] Administration Rosuvastatin Calcium 10 mg 12/10/18 22:00 12/12/18 21:35 Crestor - PO 10 mg HS [facility] Administration Spironolactone 12.5 mg 12/11/18 10:00 12/13/18 10:06 Aldactone - PO 12.5 mg DAILY [facility] Administration Tamsulosin HCl 0.4 mg 12/12/18 08:30 12/13/18 10:06 Flomax - PO 0.4 mg DAILY@0830 [facility] Administration Vital Signs (last) Temp Pulse Resp BP Pulse Ox 98 F 77 18 83/56 L 99 12/13/18 10:00 12/13/18 10:00 12/13/18 10:00 12/13/18 10:00 12/13/18 09:00 Laboratory (coagulation) PT with INR 12.90 SEC (9.7-13.0) 12/09/18 11:44 Laboratory 12/13/18 06:00 12/13/18 06:00 ASSESSMENT AND PLAN POD #4 Right hip cephalomedullary nail - Daily dressing changes - Pain control: minimize narcotic use - DVT prophylaxis: Lovenox for 30 days postoperatively - Ice right hip incisions - Elevate HOB, encourage oral intake - Appreciate medical management (Nutrition optimization, decubitus precautions heel/sacrum) - PT/OT; WBAT
[2018-12-13] MEDS ORDERED: CARVEDILOL 12.5 MG TABLET (FP) PO SCH (13:37)
[2018-12-13] MEDS ORDERED: SPIRONOLACTONE 25 MG TABLET (FP) PO SCH (13:38)
--- NOTE | 2018-12-13 15:54 | DS ---
Physical Examination Vital Signs: Vital Signs Temperature 98.1 F 12/13/18 13:42 Pulse Rate 85 12/13/18 13:42 Respiratory Rate 16 12/13/18 13:42 Blood Pressure 86/52 L 12/13/18 13:42 O2 Sat by Pulse Oximetry (%) 99 12/13/18 09:00 Findings/Remarks: skin--dusky Lt heel; skin intact oral--no lesions neck--no masses lungs--grossly clear heart--irreg abd--soft ext--no edema; Lt heel is tender to touch neuro--alert; coherent; no focal deficits Labs: CBC, BMP 12/13/18 06:00 12/13/18 06:00 Discharge Summary Reason For Visit: FRACTURE OF HIP Current Active Problems 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 ( Acute) Chronic renal insufficiency, stage III (moderate) (Acute) Low BP state Hip fracture (Acute) S/P TAVR (transcatheter aortic valve replacement) (Acute) AICD/pacer status PAD Lt carotid stenosis atrial fib depression/anxiety LLE (heel) early decubitus anemia--(post _OP) Colin status (2nd post OP urinary retention) Constipation Procedures: Principal: ORIF Rt hip Hospital Course: admitted after mechanical fall outside his residence resulting in Hip FX; underwent surgery uneventfully; but developed post OP anemia (not requiring any transfusion); Pain controlled with opiates but has not had any BM yet; also developed urinary retention post OP requiring a Colin. SBP hovering between 90 and 80; no signs of CHF or volume overload. Bun/Cr stable. CXR unchanged from that taken on admission. He developed heel pain 1 day before discharge and skin is intact but discolored. Protective dressings applied Condition: Stable - Instructions Diet, Activity, Other Instructions: low sodium; low potassium check CBC & chemistry 2-3 times a week. (transfuse if Hgb under 9.0) Hold Coreg if SBP under 80 remove usama in 14 days decubitus assessment & care avoid pressure to heels (mobilize ROCIO) attempt to remove Colin Disposition: [facility]ITENTIARY FACILITY - Home Medications Comprehensive Discharge Medication List: Ambulatory Orders Aspirin [ASA -] 81 mg PO DAILY 12/19/15 Clopidogrel Bisulfate [Plavix -] 75 mg PO DAILY 12/19/15 Paroxetine HCl [Paxil -] 10 mg PO DAILY 12/19/15 Rosuvastatin [Crestor -] 20 mg PO HS 12/19/15 Carvedilol [Coreg -] 12.5 mg PO BID tablet 11/24/18 Levothyroxine [Synthroid -] 75 mcg PO DAILY@0700 tablet 11/24/18 Spironolactone [Aldactone -] 25 mg PO DAILY tablet 11/24/18 Flomax .4mg Qd Miralax 17gm w/ 6-8 oz juice daily colace 100mg BID Percocet 5mg QD Prn as needed
[2018-12-13 17:54] VITALS: BP 97/55; PULSE 77; TEMP 97.9
== END 2018-12-13 18:21 | DRG 481 ==
LOC: JER 10:59 → JERBED 12:59 → J6S 14:36 → J4S 19:05
PROVIDERS: ADMIT Internal Medicine; ATTEND Internal Medicine
PROC: 0QS604Z Reposition Right Upper Femur with Internal Fixation Device, Open Approach (ICD-10-PCS; principal; 2018-12-09 15:30)
DX: S72.141A Displaced intertrochanteric fracture of right femur, initial encounter for closed fracture (principal); I50.42 Chronic combined systolic (congestive) and diastolic (congestive) heart failure; N17.9 Acute kidney failure, unspecified; I13.0 Hypertensive heart and chronic kidney disease with heart failure and stage 1 through stage 4 chronic kidney disease, or unspecified chronic kidney disease; S72.001A Fracture of unspecified part of neck of right femur, initial encounter for closed fracture; R33.9 Retention of urine, unspecified; N18.3 Chronic kidney disease, stage 3 (moderate); F41.8 Other specified anxiety disorders; I48.91 Unspecified atrial fibrillation; K59.00 Constipation, unspecified; D64.9 Anemia, unspecified; E78.5 Hyperlipidemia, unspecified; E03.9 Hypothyroidism, unspecified; I25.119 Atherosclerotic heart disease of native coronary artery with unspecified angina pectoris; Z95.1 Presence of aortocoronary bypass graft; W19.XXXA Unspecified fall, initial encounter; X58.XXXA Exposure to other specified factors, initial encounter; Y93.9 Activity, unspecified; Y92.89 Other specified places as the place of occurrence of the external cause; Y99.9 Unspecified external cause status
CPT/HCPCS: 36415; 71045-TC-FY; 73523-TC-FY; 73552-TC-RT-FY; 76000-TC-FY; 80048; 80053; 81003; 84550; 85025; 85027; 85610; 85730; 86922; 93306-TC; 94010; 94760; 97116-GP; 97161-GP; 99283-25

== ENCOUNTER 2020-04-14 07:36 | Emergency (ER) | payer OTHER, MEDICARE ==
[2020-04-14 07:50] VITALS: BP 123/81; PULSE 74; TEMP 97.9; BMI 24.3
[2020-04-14] MEDS ORDERED: LIDOCAINE 5% TOPICAL PATCH TP ONE (09:12)
[2020-04-14] MEDS ORDERED: ACETAMINOPHEN 500 MG TABLET (FP) PO ONE (09:17)
--- NOTE | 2020-04-14 09:25 | PDOC ---
History of Present Illness - General Chief Complaint: Injury Stated Complaint: FALL Time Seen by Provider: 04/14/20 08:49 History Source: Patient Exam Limitations: Clinical Condition - History of Present Illness Initial Comments: 04/14/20 09:19 Patient with past medical history of CAD on Plavix, hypertension and hyperlipidemia presented with complaint of bruising to left eyebrow and left lower back pain status post trying to sit on a chair and chair giving out on him and landed his back on the floor. Patient reported increased pain to left lower back when getting up from sitting or laying position. Reported no pain to the rest of the back. Patient has not taken anything for pain. Injury happened 2 days ago. Denies syncopal episode or loss of consciousness. Denies hematuria, nausea, vomiting, dizziness, blurry vision or change in vision. Denies restricted eye movement. Denies any other symptoms Occurred: reports: other (2 days) Past History - Medical History Allergies/Adverse Reactions: Allergies Allergy/AdvReac Type Severity Reaction Status Date / Time lisinopril Allergy Intermediate Cough Verified 04/14/20 07:42 Penicillins Allergy Intermediate Rash Verified 04/14/20 07:42 pravastatin sodium Allergy Intermediate MUSCLE PAIN Verified 04/14/20 07:42 [From Pravachol] simvastatin [From Zocor] Allergy Intermediate MUSCLE PAIN Verified 04/14/20 07:42 sertraline Allergy Unknown Verified 04/14/20 07:42 Home Medications: Ambulatory Orders Aspirin [ASA -] 81 mg PO DAILY 12/19/15 Clopidogrel Bisulfate [Plavix -] 75 mg PO DAILY 12/19/15 Paroxetine HCl [Paxil -] 20 mg PO DAILY 12/19/15 Rosuvastatin [Crestor -] 20 mg PO HS 12/19/15 Allopurinol [Zyloprim -] 300 mg PO DAILY 04/14/20 Carvedilol [Coreg -] 3.125 mg PO BID 04/14/20 Furosemide [Lasix -] 40 mg PO DAILY 04/14/20 Levothyroxine [Synthroid -] 37.5 mcg PO DAILY@0700 04/14/20 Lidocaine Patch Removal [Lidoderm Patch Removal] 1 each MC DAILY PRN #20 each 04/14/20 Methocarbamol [Robaxin -] 500 mg PO BID PRN #14 tablet 04/14/20 Methylprednisolone [Medrol Dose Yoel] 4 mg PO ASDIR #21 tablet 04/14/20 Sodium Bicarbonate 1 tab PO DAILY 04/14/20 Anemia: No Asthma: No Cancer: No Cardiac Disorders: Yes (CAD, MV repair, AV repair, TAVR) CVA: Yes (TIA 10 yrs ago) COPD: No CHF: Yes (last echo 10/2018 EF 15-20%) Dementia: No Diabetes: No GI Disorders: No Disorders: No HTN: Yes (htn; hypotension) Hypercholesterolemia: Yes Liver Disease: No Psychiatric Problems: Yes (Anxiety ) Seizures: No Thyroid Disease: Yes (Hypothyroid) - Surgical History Abdominal Surgery: No Appendectomy: No Cardiac Surgery: Yes (Aortic/Mitral valve repair; TAVR; CABG; AICD/ULTRASONIC CLEANER-D) Cholecystectomy: No Lung Surgery: No Neurologic Surgery: No Orthopedic Surgery: Yes (Left knee arthoscopy) - Immunization History Immunization Up to Date: Yes - Psycho-Social/Smoking History Smoking Status: Yes Smoking History: Smoker current status UNK Have you smoked in the past 12 months: No Number of Cigarettes Smoked Daily: 20 If you are a former smoker, when did you quit?: 4 years ago - Substance Abuse Hx (Audit-C & DAST Scrn) How often the patient has a drink containing alcohol: Never Score: In Men: 4 or > Positive; In Women: 3 or > Positive: 0 Screen Result (Pos requires Nsg. Audit-10AR): Negative In the last yr the pt used illegal drug/Rx for NonMed reason: No Score: Yes response is considered Positive: 0 Screen Result (Positive result requires Nsg. DAST-10): Negative Review of Systems - Review of Systems Able to Perform ROS?: Yes Is the patient limited Lithuanian proficient: No Constitutional: No: Chills, Fever, Malaise HEENTM: Yes: Symptoms Reported, Other (bruising to left eyebrow). No: See HPI, Eye Pain, Blurred Vision, Tearing, Recent change in vision, Double Vision, Cataracts, Ear Pain, Ocular Prothesis, Ear Discharge, Nose Pain, Nose Congestion, Tinnitus, Nose Bleeding, Hearing Loss, Throat Pain, Throat Swelling, Mouth Pain, Dental Problems, Difficulty Swallowing, Mouth Swelling Respiratory: No: Symptoms reported, See HPI, Cough, Orthopnea, Shortness of Breath, SOB with Exertion, SOB at Rest, Stridor, Wheezing, Productive cough, Hemoptysis, Other Cardiac (ROS): No: Symptoms Reported, See HPI, Chest Pain, Edema, Irregular Heart Rate, Lightheadedness, Palpitations, Syncope, Chest Tightness, Other ABD/GI: No: Symptoms Reported, See HPI, Nausea, Vomiting : No: Symptoms Reported, Hematuria Musculoskeletal: Yes: Symptoms Reported, See HPI, Back Pain (left lower back) Integumentary: Yes: Symptoms Reported, See HPI, Bruising (left eyebrow) Neurological: No: Symptoms reported, Headache, Dizziness All Other Systems: Reviewed and Negative *Physical Exam - Vital Signs Last Vital Signs Temp Pulse Resp BP Pulse Ox 97.9 F 74 18 123/81 96 04/14/20 07:48 04/14/20 07:48 04/14/20 07:48 04/14/20 07:48 04/14/20 07:48 - Physical Exam 04/14/20 09:27 GENERAL: Well developed, well nourished. Awake and alert. No acute distress. HEENT: 1 cm localized superficial bruising to lateral aspect of left eyebrow. Normocephalic, atraumatic. PERRLA, EOMI. No conjunctival pallor. Sclera are non- icteric. Moist mucous membranes. Oropharynx is clear. NECK: Supple. Full ROM. CARDIOVASCULAR: Regular rate and rhythm. No murmurs, rubs, or gallops. Distal pulses are 2+ and symmetric. PULMONARY: No evidence of respiratory distress. Lungs clear to auscultation bilaterally. No wheezing, rales or rhonchi. ABDOMINAL: Soft. Non-tender. Non-distended. No rebound or guarding. No organomegaly. Normoactive bowel sounds. MUSCULOSKELETAL Normal range of motion at all joints. Moderate tenderness to left paravertebral muscle of lumbosacral spine of L3-S1. No midline tenderness. No tenderness to thoracic or cervical spine. SKIN: Warm and dry. Normal capillary refill. No ecchymosis or bruising to his flank area or lower back NEUROLOGICAL: Alert, awake, appropriate. Gait is normal without ataxia. PSYCHIATRIC: Cooperative. Good eye contact. Appropriate mood General Appearance: Yes: Nourished, Appropriately Dressed. No: Apparent Distress ED Treatment Course - RADIOLOGY Radiology Studies Ordered: Category Date Time Status FACIAL BONES CT W/O CONTRAST [CT] Stat CT Scan 04/14/20 09:[address] WITHOUT CONTRAST [CT] Stat CT Scan 04/14/20 09:[address] W/O CONTRAST [CT] Stat CT Scan 04/14/20 09:09 Ordered Medical Decision Making - Medical Decision Making 04/14/20 09:23 Patient with past medical history of CAD on Plavix, hypertension and hyperlipidemia presented with complaint of bruising to left eyebrow and left lower back pain status post trying to sit on a chair and chair giving out on him and landed his back on the floor. Patient reported increased pain to left lower back when getting up from sitting or laying position. Reported no pain to the rest of the back. Patient has not taken anything for pain. Injury happened 2 days ago. Denies syncopal episode or loss of consciousness. Denies hematuria, nausea, vomiting, dizziness, blurry vision or change in vision. Denies restricted eye movement. Denies any other symptoms Exam significant for moderate tenderness to left paravertebral muscle of lower lumbosacral spine of L4-S1. No midline tenderness. No tenderness to right side of body. No tenderness to thoracic or cervical spine. Pupil equal and reflective to light bilateral. Extraocular muscle intact bilateral. Mild 1 cm area of superficial abrasion lateral to left eyebrow. No ecchymosis or hematoma to rest of the head or face. Few range of motion of cervical spine. Patient symptoms likely back contusion with facial abrasion from fall. Will do facial bone and head CT to rule out acute facial bone fracture or intracranial bleed due to being on Plavix. CAT scan of lumbar spine done to rule out acute spine normality. Lidocaine patch ordered for back pain and Tylenol for back pain. UA ordered to rule out gross hematuria. Treat based on lab and imaging results 04/14/20 12:19 UA shows no hematuria. CT of facial bone, head and lumbar spine shows no acute abnormality or fracture. Called and spoke to patient PCP about findings and PCP agrees for patient to be discharged home on Medrol pack for inflammatory effect and follow-up in PCP office. Plan discussed with patient and patient agrees with plan patient stable for discharge on Medrol pack and lidocaine patch for back pain and Robaxin muscle relaxant with PCP follow-up. Discharge - Discharge Information Problems reviewed: Yes Clinical Impression/Diagnosis: Fall Qualifiers: Encounter type: initial encounter Qualified Code(s): W19.XXXA - Unspecified fall, initial encounter Facial abrasion Qualifiers: Encounter type: initial encounter Qualified Code(s): S00.81XA - Abrasion of other part of head, initial encounter Back contusion Qualifiers: Encounter type: initial encounter Laterality: left Qualified Code(s): S20.222A - Contusion of left back wall of thorax, initial encounter Condition: Stable Disposition: HOME - Admission No - Additional Discharge Information Prescriptions: Lidocaine Patch Removal [Lidoderm Patch Removal] 1 each MC DAILY PRN #20 each PRN Reason: Back Pain Methylprednisolone [Medrol Dose Yoel] 4 mg PO ASDIR #21 tablet Methocarbamol [Robaxin -] 500 mg PO BID PRN #14 tablet PRN Reason: Back Pain - Follow up/Referral Referrals: Hector Desai MD [Primary Care Provider] - - Patient Discharge Instructions Patient Printed Discharge Instructions: DI for Low Back Pain Additional Instructions: Your CAT scan shows no bone fracture or acute dislocation. Your pain is likely from muscle pain. Take prescribed medication as prescribed for pain. Apply heat to back 2-3 times a day as needed for pain. Follow-up with your primary care - Post Discharge Activity
[2020-04-14] MEDS ORDERED: ACETAMINOPHEN 325 MG TABLET (FP) ONE (09:42)
[2020-04-14] MEDS ORDERED: LIDOCAINE 5% TOPICAL PATCH ONE (09:42)
[2020-04-14 10:21] LABS: PH,URINE 5.5 (5.0-8.0); URINE APPEARANCE CLEAR; URINE BILIRUBIN NEGATIVE (NEGATIVE); URINE COLOR YELLOW; URINE GLUCOSE (UA) NEGATIVE (NEGATIVE); URINE KETONE NEGATIVE (NEGATIVE); URINE NITRITE NEGATIVE (NEGATIVE); URINE PROTEIN 2+ (NEGATIVE); URINE UROBILINOGEN 0.2 mg/dL (0.2-1.0)
[2020-04-14 10:22] LABS: EPI CELLS 11.1 /uL (0-25.1); HYALINE CASTS 2.05 /uL (0-3.1); URINE BACTERIA 10.5 /uL (0-1359); URINE LEUK ESTERASE NEGATIVE (NEGATIVE); URINE RBC 2.4 /uL (0-23.9); URINE WBC 5.1 /uL (0-25.8)
[2020-04-14] MEDS ORDERED: LIDOCAINE PATCH REMOVAL MC SCH (22:00)
== END 2020-04-14 12:00 | disposition home or self-care (01) ==
LOC: JER 07:36
DX: S00.81XA Abrasion of other part of head, initial encounter (principal); S20.222A Contusion of left back wall of thorax, initial encounter; W19.XXXA Unspecified fall, initial encounter
CPT/HCPCS: 70450-TC; 70486-TC; 72131-TC; 81003; 99285-25

== ENCOUNTER 2021-03-19 09:12 | Inpatient (IN) | payer OTHER, MEDICARE ==
[2021-03-19] MEDS ORDERED: ONDANSETRON 4 MG TABLET PO ONE (10:40)
[2021-03-19] MEDS ORDERED: ONDANSETRON *ODT* 4 MG TABLET ONE (10:44)
[2021-03-19 11:44] LABS: BASO % 0.6 % (0-2.0); HEMATOCRIT 47.4 % (35.4-49); HEMOGLOBIN 15.2 GM/dL (11.7-16.9); LYMPH % 23.6 % (8-40); MCH 30.8 pg (25.7-33.7); MEAN CELL VOLUME 96.1 fl (80-96); MONO % 6.8 % (3.8-10.2); PLATELET COUNT 116 10^3/uL (134-434); RBC 4.93 M/mm3 (4.00-5.60); RDW 17.3 % (11.9-15.9); WHITE BLOOD COUNT 6.1 K/mm3 (4.0-10.0)
[2021-03-19 11:52] LABS: INR 1.18 (0.83-1.09); PROTHROMBIN TIME (PATIENT) 14.5 SEC (9.7-13.0)
[2021-03-19 11:54] LABS: ACTIVATED PTT 31.5 SECONDS (25.2-36.5)
[2021-03-19 12:04] LABS: ALBUMIN 3.6 g/dl (3.4-5.0); BLOOD UREA NITROGEN 41.8 mg/dL (7-18); CALCIUM 9.1 mg/dL (8.5-10.1)
[2021-03-19 12:08] LABS: CREATININE 2.1 mg/dL (0.55-1.3)
[2021-03-19 12:10] LABS: BILIRUBIN,TOTAL 1.2 mg/dL (0.2-1); TOT PROT 6.8 g/dl (6.4-8.2)
[2021-03-19] MEDS ORDERED: ASPIRIN 81 MG CHEWABLE TABLETS PO ONE (12:32)
[2021-03-19] MEDS ORDERED: CLOPIDOGREL BISULFATE 75 MG TABLET (FP) PO ONE (12:33)
[2021-03-19] MEDS ORDERED: ASPIRIN 81 MG CHEWABLE TABLETS ONE (12:51)
[2021-03-19] MEDS ORDERED: CLOPIDOGREL BISULFATE 75 MG TABLET (FP) ONE (12:51)
[2021-03-19 12:52] LABS: N-TERMINAL BNP 40389.7 pg/ml (5-450)
[2021-03-19 14:05] LABS: BLOOD UREA NITROGEN 44.6 mg/dL (7-18)
[2021-03-19 14:09] LABS: CREATININE 2.1 mg/dL (0.55-1.3)
[2021-03-19] MEDS ORDERED: FUROSEMIDE 20 MG TABLET (FP) PO ONE (14:40)
[2021-03-19] MEDS ORDERED: FUROSEMIDE 40 MG TABLET (FP) ONE (14:42)
[2021-03-19 16:45] LABS: EPI CELLS 14 /uL (0-25.1); HYALINE CASTS 8 /uL (0-3.1); URINE APPEARANCE CLEAR; URINE BACTERIA 31 /uL (0-1359); URINE BILIRUBIN NEGATIVE (NEGATIVE); URINE COLOR DK YELLOW; URINE GLUCOSE (UA) NEGATIVE (NEGATIVE); URINE KETONE NEGATIVE (NEGATIVE); URINE LEUK ESTERASE NEGATIVE (NEGATIVE); URINE NITRITE NEGATIVE (NEGATIVE); URINE PROTEIN 2+ (NEGATIVE); URINE RBC 30 /uL (0-23.9); URINE UROBILINOGEN 0.2 mg/dL (0.2-1.0); URINE WBC 14 /uL (0-25.8)
[2021-03-19] MEDS ORDERED: ONDANSETRON 4 MG/2 ML VIAL IVPUSH PRN (17:08)
[2021-03-19 20:12] VITALS: BMI 24.5
[2021-03-19] MEDS: CARVEDILOL 6.25 MG TABLET (FP) PO SCH (21:06)
[2021-03-19] MEDS: ROSUVASTATIN CA 10 MG TABLET (FP) PO SCH (21:06)
[2021-03-19] MEDS: ALPRAZolam 0.25 MG TABLET PO SCH (22:39)
[2021-03-20] MEDS: ALPRAZolam 0.25 MG TABLET PO SCH ×2 (00:21→09:35)
[2021-03-20] MEDS ORDERED: FUROSEMIDE 40 MG/4 ML INJECTABLE VIAL IVPUSH SCH (06:00)
[2021-03-20] MEDS: LEVOTHYROXINE NA 50 MCG TABLET (FP) PO SCH (06:09)
[2021-03-20 09:14] LABS: URIC ACID 2.8 mg/dL (2.6-7.2)
[2021-03-20 09:17] LABS: CALCIUM 8.9 mg/dL (8.5-10.1); MAGNESIUM 1.8 mg/dL (1.8-2.4)
[2021-03-20 09:20] LABS: CREATININE 2.2 mg/dL (0.55-1.3)
[2021-03-20] MEDS: ASPIRIN COATED 81 MG TABLET.EC PO SCH (09:32)
[2021-03-20] MEDS: PARoxetine HCL 10 MG TABLET PO SCH (09:34)
[2021-03-20] MEDS: CLOPIDOGREL BISULFATE 75 MG TABLET (FP) PO SCH (09:35)
[2021-03-20] MEDS: CARVEDILOL 6.25 MG TABLET (FP) PO SCH ×2 (09:36→21:04)
[2021-03-20] MEDS ORDERED: SPIRONOLACTONE 25 MG TABLET PO SCH (10:00)
[2021-03-20] MEDS ORDERED: SODIUM BICARBONATE 325 MG TABLET PO SCH (10:00)
[2021-03-20] MEDS ORDERED: PT OWN MED DRAWER 7, Y5N ONE ×2 (10:23→14:06)
[2021-03-20 15:05] LABS: BLOOD UREA NITROGEN 48.3 mg/dL (7-18)
[2021-03-20 15:08] LABS: CREATININE 2.4 mg/dL (0.55-1.3)
[2021-03-20] MEDS: ROSUVASTATIN CA 10 MG TABLET (FP) PO SCH (21:04)
[2021-03-21] MEDS: LEVOTHYROXINE NA 50 MCG TABLET (FP) PO SCH (06:07)
[2021-03-21 08:13] LABS: CALCIUM 8.7 mg/dL (8.5-10.1)
[2021-03-21 08:17] LABS: CREATININE 2.3 mg/dL (0.55-1.3)
[2021-03-21] MEDS: CARVEDILOL 6.25 MG TABLET (FP) PO SCH ×2 (09:50→21:29)
[2021-03-21] MEDS: SODIUM BICARBONATE 650 MG TABLET PO SCH (09:50)
[2021-03-21] MEDS: CLOPIDOGREL BISULFATE 75 MG TABLET (FP) PO SCH (09:50)
[2021-03-21] MEDS: PARoxetine HCL 10 MG TABLET PO SCH (09:51)
[2021-03-21] MEDS: ASPIRIN COATED 81 MG TABLET.EC PO SCH (09:51)
[2021-03-21] MEDS ORDERED: FUROSEMIDE 40 MG/4 ML INJECTABLE VIAL IVPUSH SCH (10:00)
[2021-03-21] MEDS: ALPRAZolam 0.25 MG TABLET PO SCH (10:00)
[2021-03-21] MEDS: ROSUVASTATIN CA 10 MG TABLET (FP) PO SCH (21:29)
[2021-03-22] MEDS: LEVOTHYROXINE NA 50 MCG TABLET (FP) PO SCH (06:03)
[2021-03-22 08:15] LABS: BASO % 0.6 % (0-2.0); EOS % 2.4 % (0-4.5); HEMATOCRIT 44.8 % (35.4-49); HEMOGLOBIN 14.6 GM/dL (11.7-16.9); LYMPH % 29.7 % (8-40); MCH 30.8 pg (25.7-33.7); MCHC 32.5 g/dl (32.0-35.9); MEAN CELL VOLUME 94.9 fl (80-96); MEAN PLT VOLUME 8.7 fl (7.5-11.1); MONO % 9.9 % (3.8-10.2); NEUT % 57.4 % (42.8-82.8); PLATELET COUNT 114 10^3/uL (134-434); RBC 4.72 M/mm3 (4.00-5.60); RDW 17.4 % (11.9-15.9); WHITE BLOOD COUNT 6.4 K/mm3 (4.0-10.0)
[2021-03-22 08:28] LABS: CALCIUM 8.8 mg/dL (8.5-10.1)
[2021-03-22 08:29] LABS: CALCIUM 8.8 mg/dL (8.5-10.1)
[2021-03-22 08:31] LABS: ALBUMIN 3.3 g/dl (3.4-5.0); BLOOD UREA NITROGEN 50.6 mg/dL (7-18); BLOOD UREA NITROGEN 50.7 mg/dL (7-18)
[2021-03-22 08:32] LABS: CREATININE 2.5 mg/dL (0.55-1.3)
[2021-03-22 08:33] LABS: CREATININE 2.4 mg/dL (0.55-1.3)
[2021-03-22 08:34] LABS: BILIRUBIN,TOTAL 0.7 mg/dL (0.2-1); TOT PROT 6.3 g/dl (6.4-8.2)
[2021-03-22] MEDS: ASPIRIN COATED 81 MG TABLET.EC PO SCH (09:04)
[2021-03-22] MEDS: CLOPIDOGREL BISULFATE 75 MG TABLET (FP) PO SCH (09:04)
[2021-03-22] MEDS: PARoxetine HCL 10 MG TABLET PO SCH (09:04)
[2021-03-22] MEDS: SODIUM BICARBONATE 650 MG TABLET PO SCH (09:04)
[2021-03-22] MEDS: CARVEDILOL 6.25 MG TABLET (FP) PO SCH ×2 (09:04→21:17)
[2021-03-22] MEDS: ALPRAZolam 0.25 MG TABLET PO SCH (09:06)
[2021-03-22] MEDS: FUROSEMIDE 40 MG/4 ML INJECTABLE VIAL IVPUSH SCH (11:11)
[2021-03-22] MEDS: ROSUVASTATIN CA 10 MG TABLET (FP) PO SCH (21:17)
[2021-03-23] MEDS ORDERED: MAG HYDROX/AL HYDROX/SIMETH 30 ML UNIT-DOSE CUP PO ONE (00:08)
[2021-03-23] MEDS: LEVOTHYROXINE NA 50 MCG TABLET (FP) PO SCH (06:05)
[2021-03-23 08:21] LABS: BLOOD UREA NITROGEN 51.3 mg/dL (7-18); CALCIUM 8.8 mg/dL (8.5-10.1)
[2021-03-23 08:23] LABS: CREATININE 2.2 mg/dL (0.55-1.3)
[2021-03-23] MEDS: FUROSEMIDE 40 MG/4 ML INJECTABLE VIAL IVPUSH SCH (09:55)
[2021-03-23] MEDS: ASPIRIN COATED 81 MG TABLET.EC PO SCH (09:56)
[2021-03-23] MEDS: SODIUM BICARBONATE 650 MG TABLET PO SCH (09:56)
[2021-03-23] MEDS: PARoxetine HCL 10 MG TABLET PO SCH (09:56)
[2021-03-23] MEDS: CLOPIDOGREL BISULFATE 75 MG TABLET (FP) PO SCH (09:56)
[2021-03-23] MEDS ORDERED: clonazePAM 0.5 MG TABLET PO SCH (10:00)
[2021-03-23] MEDS: CARVEDILOL 6.25 MG TABLET (FP) PO SCH (12:25)
[2021-03-23] MEDS ORDERED: ALPRAZolam 0.25 MG TABLET PO PRN (15:24)
[2021-03-23] MEDS: ROSUVASTATIN CA 10 MG TABLET (FP) PO SCH (21:36)
[2021-03-24] MEDS: LEVOTHYROXINE NA 50 MCG TABLET (FP) PO SCH (06:40)
[2021-03-24] MEDS: FUROSEMIDE 40 MG TABLET (FP) PO SCH ×2 (06:40→09:10)
[2021-03-24 08:29] LABS: CALCIUM 9.1 mg/dL (8.5-10.1)
[2021-03-24 08:30] LABS: BLOOD UREA NITROGEN 52.8 mg/dL (7-18)
[2021-03-24] MEDS ORDERED: PT OWN MED DRAWER 7, Y5N ONE (08:53)
[2021-03-24] MEDS: CLOPIDOGREL BISULFATE 75 MG TABLET (FP) PO SCH (09:10)
[2021-03-24] MEDS: PARoxetine HCL 10 MG TABLET PO SCH (09:10)
[2021-03-24] MEDS: ASPIRIN COATED 81 MG TABLET.EC PO SCH (09:10)
[2021-03-24] MEDS ORDERED: CARVEDILOL PHOSPHATE CR 10 MG CAPSULE PO SCH (10:00)
[2021-03-24] MEDS: ROSUVASTATIN CA 10 MG TABLET (FP) PO SCH (21:30)
[2021-03-24] MEDS: MIRTAZAPINE 15 MG TABLET (FP) PO SCH (21:30)
[2021-03-25] MEDS: LEVOTHYROXINE NA 50 MCG TABLET (FP) PO SCH (06:49)
[2021-03-25 08:13] LABS: BLOOD UREA NITROGEN 57.6 mg/dL (7-18)
[2021-03-25] MEDS: PARoxetine HCL 10 MG TABLET PO SCH (09:49)
[2021-03-25] MEDS: ASPIRIN COATED 81 MG TABLET.EC PO SCH (09:49)
[2021-03-25] MEDS: CLOPIDOGREL BISULFATE 75 MG TABLET (FP) PO SCH (11:25)
[2021-03-25] MEDS: CARVEDILOL PHOSPHATE CR 20 MG CAPSULE PO SCH ×2 (12:00→12:34)
[2021-03-25] MEDS: FUROSEMIDE 40 MG TABLET (FP) PO SCH (12:01)
[2021-03-25] MEDS ORDERED: FUROSEMIDE 20 MG TABLET (FP) PO SCH (12:36)
[2021-03-25] MEDS: MIRTAZAPINE 15 MG TABLET (FP) PO SCH (21:26)
[2021-03-25] MEDS: ROSUVASTATIN CA 10 MG TABLET (FP) PO SCH (21:26)
[2021-03-26] MEDS: LEVOTHYROXINE NA 50 MCG TABLET (FP) PO SCH (06:13)
[2021-03-26 06:35] VITALS: TEMP 98
[2021-03-26 07:48] LABS: CALCIUM 9.2 mg/dL (8.5-10.1)
[2021-03-26 07:49] LABS: BLOOD UREA NITROGEN 57.1 mg/dL (7-18)
[2021-03-26 07:52] LABS: CREATININE 2.1 mg/dL (0.55-1.3)
[2021-03-26 09:10] VITALS: BP 96/62; PULSE 71
[2021-03-26] MEDS: CLOPIDOGREL BISULFATE 75 MG TABLET (FP) PO SCH (09:59)
[2021-03-26] MEDS: PARoxetine HCL 10 MG TABLET PO SCH (09:59)
[2021-03-26] MEDS: ASPIRIN COATED 81 MG TABLET.EC PO SCH (10:00)
[2021-03-26] MEDS ORDERED: PT OWN MED DRAWER 7, Y5N ONE (10:03)
[2021-03-26] MEDS: CARVEDILOL PHOSPHATE CR 20 MG CAPSULE PO SCH (10:06)
== END 2021-03-26 13:36 | DRG 291 ==
LOC: JER 09:12 → UNDOADMOB 12:51 → JERBED 12:51 → INTOOBSV 12:51 → JERBED 16:21 → J4W 18:48 → OBSVTOIN 03-20 11:32
PROVIDERS: ADMIT Internal Medicine; ATTEND Internal Medicine
DX: I13.0 Hypertensive heart and chronic kidney disease with heart failure and stage 1 through stage 4 chronic kidney disease, or unspecified chronic kidney disease (principal); I50.43 Acute on chronic combined systolic (congestive) and diastolic (congestive) heart failure; I24.9 Acute ischemic heart disease, unspecified; I45.3 Trifascicular block; I25.10 Atherosclerotic heart disease of native coronary artery without angina pectoris; Z95.810 Presence of automatic (implantable) cardiac defibrillator; E03.9 Hypothyroidism, unspecified; N18.30 Chronic kidney disease, stage 3 unspecified; Z95.2 Presence of prosthetic heart valve; R74.8 Abnormal levels of other serum enzymes; E79.0 Hyperuricemia without signs of inflammatory arthritis and tophaceous disease; I65.22 Occlusion and stenosis of left carotid artery; F41.8 Other specified anxiety disorders; I95.9 Hypotension, unspecified; E78.5 Hyperlipidemia, unspecified; E87.5 Hyperkalemia
CPT/HCPCS: 36415; 71045-TC-FY; 80048; 80053; 81003; 82550; 82962; 83690; 83735; 83880; 84100; 84443; 84484; 84550; 85025; 85610; 85730; 87086; 87186; 93005; 93010; 93306-TC; 97116-GP; 97161-GP; 99285-25; C9803; G0378; U0003; U0005

== ENCOUNTER 2021-10-02 14:37 | Inpatient (IN) | payer OTHER, MEDICARE ==
[2021-10-02 16:03] LABS: BASO % 0.9 % (0-2.0); EOS % 2.5 % (0-4.5); HEMATOCRIT 43.8 % (35.4-49); HEMOGLOBIN 14.2 GM/dL (11.7-16.9); LYMPH % 26.2 % (8-40); MCH 31.7 pg (25.7-33.7); MCHC 32.4 g/dl (32.0-35.9); MEAN CELL VOLUME 97.8 fl (80-96); MEAN PLT VOLUME 9.5 fl (7.5-11.1); MONO % 8.8 % (3.8-10.2); NEUT % 61.6 % (42.8-82.8); PLATELET COUNT 84 10^3/uL (134-434); RBC 4.47 M/mm3 (4.00-5.60); RDW 17.5 % (11.9-15.9)
[2021-10-02 16:31] LABS: CHLORIDE 111 mmol/L (98-107); SODIUM 140 mmol/L (136-145)
[2021-10-02 16:33] LABS: ALBUMIN 3.8 g/dl (3.4-5.0); ANION GAP 7 MMOL/L (8-16); BLOOD UREA NITROGEN 40.5 mg/dL (7-18); CALCIUM 8.9 mg/dL (8.5-10.1); CO2 22 mmol/L (21-32); GLUCOSE,RANDOM 87 mg/dL (74-106)
[2021-10-02 16:37] LABS: CREATININE 2.1 mg/dL (0.55-1.3); PHOSPHOROUS 3.8 mg/dL (2.5-4.9); SGOT/AST 38 U/L (15-37); SGPT/ALT 42 U/L (13-61)
[2021-10-02 16:38] LABS: BILIRUBIN,TOTAL 0.9 mg/dL (0.2-1)
[2021-10-02 16:39] LABS: TOT PROT 6.7 g/dl (6.4-8.2)
[2021-10-02 16:40] LABS: ALK PHOS 104 U/L (45-117)
[2021-10-02 16:42] LABS: N-TERMINAL BNP 25077.3 pg/ml (5-450)
[2021-10-02] MEDS ORDERED: ASPIRIN 81 MG CHEWABLE TABLETS PO ONE (16:55)
[2021-10-02] MEDS ORDERED: ASPIRIN 81 MG CHEWABLE TABLETS ONE (17:48)
[2021-10-02] MEDS ORDERED: guaiFENesin 600 MG TABLET.ER (FP) PO ONE (18:21)
[2021-10-02] MEDS ORDERED: ACETAMINOPHEN 325 MG TABLET (FP) PO PRN (20:58)
[2021-10-02] MEDS ORDERED: POLYETHYLENE GLYCOL (HEALTHYLAX) 3350 17 GM PACKET PO PRN (20:58)
[2021-10-02] MEDS ORDERED: guaiFENesin 600 MG TABLET.ER (FP) PO SCH (22:00)
[2021-10-02] MEDS ORDERED: ROSUVASTATIN CA 10 MG TABLET PO SCH (22:00)
[2021-10-02] MEDS: MIRTAZAPINE 15 MG TABLET (FP) PO SCH (22:27)
[2021-10-02] MEDS: HEPARIN NA (PORCINE) 5,000 UNITS/ML 1ML VIAL SQ SCH (22:28)
[2021-10-02 22:47] VITALS: BMI 25.0
[2021-10-03] MEDS ORDERED: SODIUM ZIRCONIUM CYCLOSILICATE (LOKELMA) 10 GM PACKET PO ONE (01:00)
[2021-10-03] MEDS ORDERED: guaiFENesin/D-METHORPHAN HB 10 ML UNIT-DOSE CUPS PO PRN (05:16)
[2021-10-03] MEDS: HEPARIN NA (PORCINE) 5,000 UNITS/ML 1ML VIAL SQ SCH ×3 (06:26→21:38)
[2021-10-03] MEDS: LEVOTHYROXINE NA 75 MCG TABLET (FP) PO SCH (06:45)
[2021-10-03] MEDS ORDERED: LEVOTHYROXINE NA 50 MCG TABLET (FP) PO SCH (07:00)
[2021-10-03 08:54] LABS: BASO % 0.6 % (0-2.0); HEMATOCRIT 43.9 % (35.4-49); HEMOGLOBIN 13.8 GM/dL (11.7-16.9); MCH 30.8 pg (25.7-33.7); MCHC 31.5 g/dl (32.0-35.9); MEAN CELL VOLUME 97.9 fl (80-96); MEAN PLT VOLUME 10.4 fl (7.5-11.1); MONO % 7.9 % (3.8-10.2); NEUT % 51.5 % (42.8-82.8); PLATELET COUNT 89 10^3/uL (134-434); RBC 4.48 M/mm3 (4.00-5.60); RDW 17.1 % (11.9-15.9); WHITE BLOOD COUNT 4.7 K/mm3 (4.0-10.0)
[2021-10-03 08:59] LABS: INR 1.27 (0.83-1.09); PROTHROMBIN TIME (PATIENT) 14.6 SEC (9.7-13.0)
[2021-10-03 09:02] LABS: ACTIVATED PTT 31.9 SECONDS (25.2-36.5)
[2021-10-03 09:14] LABS: BLOOD UREA NITROGEN 40.6 mg/dL (7-18); CALCIUM 9.2 mg/dL (8.5-10.1)
[2021-10-03] MEDS: ALLOPURINOL 300 MG TABLET (FP) PO SCH (09:14)
[2021-10-03] MEDS: ASPIRIN 81 MG CHEWABLE TABLETS PO SCH (09:14)
[2021-10-03] MEDS: CLOPIDOGREL BISULFATE 75 MG TABLET (FP) PO SCH (09:14)
[2021-10-03] MEDS: CARVEDILOL 3.125 MG TABLET (FP) PO SCH ×2 (09:15→21:36)
[2021-10-03] MEDS: PARoxetine HCL 10 MG TABLET PO SCH (09:15)
[2021-10-03 09:17] LABS: CREATININE 2.2 mg/dL (0.55-1.3)
[2021-10-03] MEDS ORDERED: CARVEDILOL PHOSPHATE CR 20 MG CAPSULE PO SCH (10:00)
[2021-10-03] MEDS: FUROSEMIDE 40 MG/4 ML INJECTABLE VIAL IVPUSH SCH (10:47)
[2021-10-03] MEDS: MIRTAZAPINE 15 MG TABLET (FP) PO SCH (21:36)
[2021-10-03] MEDS: ROSUVASTATIN CA 20 MG TABLET PO SCH (21:36)
[2021-10-04] MEDS: HEPARIN NA (PORCINE) 5,000 UNITS/ML 1ML VIAL SQ SCH ×3 (06:27→21:16)
[2021-10-04] MEDS: LEVOTHYROXINE NA 75 MCG TABLET (FP) PO SCH (06:27)
[2021-10-04 08:15] LABS: BASO % 0.6 % (0-2.0); EOS % 2.3 % (0-4.5); HEMATOCRIT 41.1 % (35.4-49); MCH 31.1 pg (25.7-33.7); MCHC 31.7 g/dl (32.0-35.9); MEAN CELL VOLUME 98.1 fl (80-96); MEAN PLT VOLUME 9.8 fl (7.5-11.1); MONO % 8.4 % (3.8-10.2); NEUT % 61.7 % (42.8-82.8); PLATELET COUNT 85 10^3/uL (134-434); RBC 4.19 M/mm3 (4.00-5.60); WHITE BLOOD COUNT 5.8 K/mm3 (4.0-10.0)
[2021-10-04 08:28] LABS: CALCIUM 9.3 mg/dL (8.5-10.1)
[2021-10-04 08:30] LABS: ALBUMIN 3.6 g/dl (3.4-5.0)
[2021-10-04 08:33] LABS: BLOOD UREA NITROGEN 46.5 mg/dL (7-18); CREATININE 2.5 mg/dL (0.55-1.3)
[2021-10-04 08:34] LABS: CHOLESTEROL 111 mg/dL (50-200); LDL CHOLESTEROL (ONLY SJRH) 65 mg/dL (5-100); TOT PROT 6.3 g/dl (6.4-8.2); TRIGLYCERIDES 73 mg/dL (0-150)
[2021-10-04 08:37] LABS: HDL CHOLESTEROL 34 mg/dL (40-60)
[2021-10-04] MEDS: CARVEDILOL 3.125 MG TABLET (FP) PO SCH ×2 (10:05→21:16)
[2021-10-04] MEDS: ASPIRIN 81 MG CHEWABLE TABLETS PO SCH (10:05)
[2021-10-04] MEDS: ALLOPURINOL 300 MG TABLET (FP) PO SCH (10:05)
[2021-10-04] MEDS: PARoxetine HCL 10 MG TABLET PO SCH (10:05)
[2021-10-04] MEDS: FUROSEMIDE 40 MG/4 ML INJECTABLE VIAL IVPUSH SCH (10:05)
[2021-10-04] MEDS: CLOPIDOGREL BISULFATE 75 MG TABLET (FP) PO SCH (10:05)
[2021-10-04] MEDS: MIRTAZAPINE 15 MG TABLET (FP) PO SCH (21:16)
[2021-10-04] MEDS: ROSUVASTATIN CA 20 MG TABLET PO SCH (21:16)
[2021-10-05] MEDS: HEPARIN NA (PORCINE) 5,000 UNITS/ML 1ML VIAL SQ SCH ×3 (06:11→22:11)
[2021-10-05] MEDS: LEVOTHYROXINE NA 75 MCG TABLET (FP) PO SCH (06:11)
[2021-10-05 09:07] LABS: BLOOD UREA NITROGEN 46.6 mg/dL (7-18); CALCIUM 9.5 mg/dL (8.5-10.1)
[2021-10-05 09:09] LABS: CREATININE 2.6 mg/dL (0.55-1.3)
[2021-10-05] MEDS: ALLOPURINOL 300 MG TABLET (FP) PO SCH (10:26)
[2021-10-05] MEDS: CARVEDILOL 3.125 MG TABLET (FP) PO SCH ×2 (10:26→22:11)
[2021-10-05] MEDS: CLOPIDOGREL BISULFATE 75 MG TABLET (FP) PO SCH (10:26)
[2021-10-05] MEDS: ASPIRIN 81 MG CHEWABLE TABLETS PO SCH (10:26)
[2021-10-05] MEDS: PARoxetine HCL 10 MG TABLET PO SCH (10:26)
[2021-10-05] MEDS: MIRTAZAPINE 15 MG TABLET (FP) PO SCH (22:11)
[2021-10-05] MEDS: ROSUVASTATIN CA 20 MG TABLET PO SCH (22:11)
[2021-10-05] MEDS ORDERED: SODIUM CHLORIDE NASAL SPRAY 44 ML BOTTLE NS PRN (23:55)
[2021-10-06] MEDS: HEPARIN NA (PORCINE) 5,000 UNITS/ML 1ML VIAL SQ SCH (06:16)
[2021-10-06] MEDS: LEVOTHYROXINE NA 75 MCG TABLET (FP) PO SCH (06:16)
[2021-10-06] MEDS: PARoxetine HCL 10 MG TABLET PO SCH (10:37)
[2021-10-06] MEDS: CLOPIDOGREL BISULFATE 75 MG TABLET (FP) PO SCH (10:37)
[2021-10-06] MEDS: ALLOPURINOL 300 MG TABLET (FP) PO SCH (10:38)
[2021-10-06] MEDS: ASPIRIN 81 MG CHEWABLE TABLETS PO SCH (10:38)
[2021-10-06] MEDS: CARVEDILOL 3.125 MG TABLET (FP) PO SCH ×2 (10:38→22:20)
[2021-10-06 13:11] LABS: HEMATOCRIT 45.4 % (35.4-49); HEMOGLOBIN 13.8 GM/dL (11.7-16.9); MCH 31.1 pg (25.7-33.7); MCHC 30.3 g/dl (32.0-35.9); MEAN CELL VOLUME 102.6 fl (80-96); MEAN PLT VOLUME 9.5 fl (7.5-11.1); PLATELET COUNT 63 10^3/uL (134-434); RBC 4.42 M/mm3 (4.00-5.60); RDW 17.7 % (11.9-15.9); WHITE BLOOD COUNT 4.5 K/mm3 (4.0-10.0)
[2021-10-06] MEDS: JARDIANCE 10 MG PO SCH (13:44)
[2021-10-06 13:51] LABS: CALCIUM 8.9 mg/dL (8.5-10.1)
[2021-10-06 13:52] LABS: BLOOD UREA NITROGEN 45.6 mg/dL (7-18)
[2021-10-06 13:55] LABS: CREATININE 2.3 mg/dL (0.55-1.3)
[2021-10-06] MEDS: ROSUVASTATIN CA 20 MG TABLET PO SCH (22:19)
[2021-10-06] MEDS: MIRTAZAPINE 15 MG TABLET (FP) PO SCH (22:19)
[2021-10-07] MEDS: LEVOTHYROXINE NA 75 MCG TABLET (FP) PO SCH (06:48)
[2021-10-07] MEDS: JARDIANCE 10 MG PO SCH (06:48)
[2021-10-07] MEDS: CARVEDILOL 3.125 MG TABLET (FP) PO SCH ×2 (09:33→21:12)
[2021-10-07] MEDS: PARoxetine HCL 10 MG TABLET PO SCH (09:33)
[2021-10-07] MEDS: ASPIRIN 81 MG CHEWABLE TABLETS PO SCH (09:33)
[2021-10-07] MEDS: ALLOPURINOL 300 MG TABLET (FP) PO SCH (09:33)
[2021-10-07] MEDS: MIRTAZAPINE 15 MG TABLET (FP) PO SCH (21:12)
[2021-10-07] MEDS: ROSUVASTATIN CA 20 MG TABLET PO SCH (21:12)
[2021-10-08] MEDS: LEVOTHYROXINE NA 75 MCG TABLET (FP) PO SCH (06:24)
[2021-10-08] MEDS: JARDIANCE 10 MG PO SCH (06:24)
[2021-10-08] MEDS: ASPIRIN 81 MG CHEWABLE TABLETS PO SCH (09:35)
[2021-10-08] MEDS: CARVEDILOL 3.125 MG TABLET (FP) PO SCH (09:35)
[2021-10-08] MEDS: PARoxetine HCL 10 MG TABLET PO SCH (09:35)
[2021-10-08] MEDS: ALLOPURINOL 300 MG TABLET (FP) PO SCH (09:36)
[2021-10-08 11:32] LABS: HEMATOCRIT 42.1 % (35.4-49); HEMOGLOBIN 13.5 GM/dL (11.7-16.9); MCH 31.3 pg (25.7-33.7); MEAN CELL VOLUME 97.8 fl (80-96); MEAN PLT VOLUME 9.2 fl (7.5-11.1); PLATELET COUNT 84 10^3/uL (134-434); RDW 17.1 % (11.9-15.9); WHITE BLOOD COUNT 4.7 K/mm3 (4.0-10.0)
[2021-10-08 18:18] VITALS: BP 97/70; PULSE 77; TEMP 97.7
== END 2021-10-08 19:38 | DRG 291 ==
LOC: JER 14:37 → JERBED 17:31 → J4S 21:42
PROVIDERS: ADMIT Hospitalist; ATTEND Internal Medicine
DX: I13.0 Hypertensive heart and chronic kidney disease with heart failure and stage 1 through stage 4 chronic kidney disease, or unspecified chronic kidney disease (principal); I50.43 Acute on chronic combined systolic (congestive) and diastolic (congestive) heart failure; N17.9 Acute kidney failure, unspecified; I25.10 Atherosclerotic heart disease of native coronary artery without angina pectoris; I73.9 Peripheral vascular disease, unspecified; E03.9 Hypothyroidism, unspecified; Z95.810 Presence of automatic (implantable) cardiac defibrillator; Z95.2 Presence of prosthetic heart valve; E87.5 Hyperkalemia; F41.9 Anxiety disorder, unspecified; I48.0 Paroxysmal atrial fibrillation; N18.30 Chronic kidney disease, stage 3 unspecified
CPT/HCPCS: 36415; 71045-TC-FY; 80048; 80053; 80061; 82550; 83735; 83880; 84100; 84439; 84443; 84484; 85025; 85027; 85610; 85730; 87804; 93005; 93010; 93306-TC; 97116-GP; 97161-GP; 99285-25; C9803; J1644; U0003; U0005

== ENCOUNTER 2021-11-06 22:49 | Inpatient (IN) | payer OTHER, MEDICARE ==
[2021-11-07 01:08] LABS: BASO % 0.7 % (0-2.0); HEMATOCRIT 41.3 % (35.4-49); HEMOGLOBIN 13.6 GM/dL (11.7-16.9); LYMPH % 19.7 % (8-40); MCH 31.4 pg (25.7-33.7); MCHC 32.8 g/dl (32.0-35.9); MEAN CELL VOLUME 95.7 fl (80-96); MONO % 11.1 % (3.8-10.2); NEUT % 66.5 % (42.8-82.8); PLATELET COUNT 81 10^3/uL (134-434); RBC 4.31 M/mm3 (4.00-5.60); RDW 16.2 % (11.9-15.9); WHITE BLOOD COUNT 3.7 K/mm3 (4.0-10.0)
[2021-11-07 01:26] LABS: CHLORIDE 107 mmol/L (98-107); SODIUM 138 mmol/L (136-145)
[2021-11-07 01:28] LABS: ALBUMIN 3.7 g/dl (3.4-5.0); ANION GAP 11 MMOL/L (8-16); BLOOD UREA NITROGEN 47.8 mg/dL (7-18); CALCIUM 8.8 mg/dL (8.5-10.1); CO2 20 mmol/L (21-32); GLUCOSE,RANDOM 96 mg/dL (74-106)
[2021-11-07 01:31] LABS: CREATININE 2.2 mg/dL (0.55-1.3); SGOT/AST 21 U/L (15-37); SGPT/ALT 25 U/L (13-61)
[2021-11-07 01:33] LABS: BILIRUBIN,TOTAL 0.8 mg/dL (0.2-1); TOT PROT 6.5 g/dl (6.4-8.2)
[2021-11-07 01:34] LABS: ALK PHOS 105 U/L (45-117)
[2021-11-07 01:36] LABS: N-TERMINAL BNP 14698.3 pg/ml (5-450)
[2021-11-07 06:34] LABS: ALBUMIN 3.5 g/dl (3.4-5.0); BLOOD UREA NITROGEN 46.1 mg/dL (7-18); CALCIUM 8.7 mg/dL (8.5-10.1)
[2021-11-07 06:35] LABS: MAGNESIUM 1.7 mg/dL (1.8-2.4)
[2021-11-07 06:39] LABS: BILIRUBIN,TOTAL 0.8 mg/dL (0.2-1); TOT PROT 6.3 g/dl (6.4-8.2)
[2021-11-07 06:57] LABS: BASO % 0.8 % (0-2.0); EOS % 1.5 % (0-4.5); HEMATOCRIT 40.3 % (35.4-49); HEMOGLOBIN 13.1 GM/dL (11.7-16.9); LYMPH % 29.1 % (8-40); MCH 31.3 pg (25.7-33.7); MCHC 32.6 g/dl (32.0-35.9); MEAN CELL VOLUME 96.1 fl (80-96); MONO % 12.9 % (3.8-10.2); NEUT % 55.7 % (42.8-82.8); PLATELET COUNT 84 10^3/uL (134-434); WHITE BLOOD COUNT 3.4 K/mm3 (4.0-10.0)
[2021-11-07] MEDS ORDERED: LEVOTHYROXINE NA 75 MCG TABLET (FP) PO SCH (07:00)
[2021-11-07] MEDS ORDERED: SODIUM CHLORIDE NASAL SPRAY 44 ML BOTTLE NS PRN (07:04)
[2021-11-07] MEDS ORDERED: POLYETHYLENE GLYCOL (HEALTHYLAX) 3350 17 GM PACKET PO PRN (10:29)
[2021-11-07] MEDS: CARVEDILOL 3.125 MG TABLET (FP) PO SCH ×2 (12:10→22:16)
[2021-11-07] MEDS: ASPIRIN 81 MG CHEWABLE TABLETS PO SCH (12:12)
[2021-11-07 12:38] LABS: MAGNESIUM 1.8 mg/dL (1.8-2.4)
[2021-11-07] MEDS: LEVOTHYROXINE NA 50 MCG TABLET (FP) PO SCH (14:28)
[2021-11-08] MEDS ORDERED: LEVOTHYROXINE NA 50 MCG TABLET (FP) PO SCH (07:00)
[2021-11-08] MEDS: LEVOTHYROXINE NA 50 MCG TABLET (FP) PO SCH (07:55)
[2021-11-08] MEDS: CARVEDILOL 3.125 MG TABLET (FP) PO SCH ×2 (09:50→22:01)
[2021-11-08] MEDS: ROSUVASTATIN CA 20 MG TABLET PO SCH (09:54)
[2021-11-08] MEDS: FUROSEMIDE 20 MG TABLET (FP) PO SCH (09:54)
[2021-11-08] MEDS: ASPIRIN 81 MG CHEWABLE TABLETS PO SCH (09:54)
[2021-11-08] MEDS: PARoxetine HCL 10 MG TABLET PO SCH (09:54)
[2021-11-08] MEDS: ALLOPURINOL 300 MG TABLET (FP) PO SCH (09:55)
[2021-11-08] MEDS ORDERED: PATIENT'S OWN MEDICATION (NON-FORMULARY) (Empagliflozin [Jardiance] 10 MG Tablet) PO SCH (10:00)
[2021-11-08] MEDS ORDERED: MELATONIN 5 MG TABLETS PO PRN (11:32)
[2021-11-08] MEDS ORDERED: guaiFENesin 200 MG/10 ML 10 ML UNIT-DOSE CUPS PO PRN (11:35)
[2021-11-08] MEDS ORDERED: APIXABAN 2.5 MG TABLET PO SCH (11:45)
[2021-11-08] MEDS: APIXABAN 2.5 MG TABLET PO SCH ×2 (11:52→22:01)
[2021-11-08] MEDS ORDERED: ACETAMINOPHEN 325 MG TABLET (FP) PO ONE (22:00)
[2021-11-08] MEDS ORDERED: ONDANSETRON 4 MG/2 ML VIAL IVPUSH ONE (22:00)
[2021-11-09] MEDS: LEVOTHYROXINE NA 50 MCG TABLET (FP) PO SCH (06:43)
[2021-11-09] MEDS: ALLOPURINOL 300 MG TABLET (FP) PO SCH (10:45)
[2021-11-09] MEDS: PARoxetine HCL 10 MG TABLET PO SCH (10:45)
[2021-11-09] MEDS: ROSUVASTATIN CA 20 MG TABLET PO SCH (10:45)
[2021-11-09] MEDS: CARVEDILOL 3.125 MG TABLET (FP) PO SCH ×2 (10:45→21:06)
[2021-11-09] MEDS: APIXABAN 2.5 MG TABLET PO SCH ×2 (10:45→21:06)
[2021-11-09] MEDS: FUROSEMIDE 20 MG TABLET (FP) PO SCH ×2 (11:16→14:29)
[2021-11-09] MEDS ORDERED: ZOLPIDEM TARTRATE 5 MG TABLET PO ONE (22:12)
[2021-11-10] MEDS ORDERED: ACETAMINOPHEN 325 MG TABLET (FP) PO ONE (00:03)
[2021-11-10] MEDS ORDERED: SODIUM CHLORIDE 250 ML IV STA (01:57)
[2021-11-10 03:54] LABS: EPI CELLS 17 /uL (0-25.1); HYALINE CASTS 5 /uL (0-3.1); URINE APPEARANCE CLEAR; URINE BACTERIA 5 /uL (0-1359); URINE BILIRUBIN NEGATIVE (NEGATIVE); URINE COLOR YELLOW; URINE GLUCOSE (UA) NEGATIVE (NEGATIVE); URINE KETONE NEGATIVE (NEGATIVE); URINE LEUK ESTERASE NEGATIVE (NEGATIVE); URINE NITRITE NEGATIVE (NEGATIVE); URINE PROTEIN 1+ (NEGATIVE); URINE RBC 28 /uL (0-23.9); URINE UROBILINOGEN 0.2 mg/dL (0.2-1.0); URINE WBC 7 /uL (0-25.8)
[2021-11-10] MEDS: LEVOTHYROXINE NA 50 MCG TABLET (FP) PO SCH (06:38)
[2021-11-10] MEDS: PARoxetine HCL 10 MG TABLET PO SCH (10:16)
[2021-11-10] MEDS: CARVEDILOL 3.125 MG TABLET (FP) PO SCH ×2 (10:17→21:40)
[2021-11-10] MEDS: ASPIRIN COATED 81 MG TABLET.EC PO SCH (10:17)
[2021-11-10] MEDS: APIXABAN 2.5 MG TABLET PO SCH ×2 (10:17→22:55)
[2021-11-10] MEDS: ROSUVASTATIN CA 20 MG TABLET PO SCH (10:17)
[2021-11-10] MEDS: FUROSEMIDE 20 MG TABLET (FP) PO SCH (10:17)
[2021-11-10] MEDS: ALLOPURINOL 300 MG TABLET (FP) PO SCH (10:18)
[2021-11-10 12:11] LABS: BASO % 0.7 % (0-2.0); EOS % 1.7 % (0-4.5); HEMATOCRIT 42.1 % (35.4-49); HEMOGLOBIN 13.6 GM/dL (11.7-16.9); LYMPH % 29.8 % (8-40); MCH 30.8 pg (25.7-33.7); MCHC 32.2 g/dl (32.0-35.9); MEAN CELL VOLUME 95.6 fl (80-96); MEAN PLT VOLUME 9.2 fl (7.5-11.1); MONO % 14.4 % (3.8-10.2); NEUT % 53.4 % (42.8-82.8); PLATELET COUNT 94 10^3/uL (134-434); RDW 16.2 % (11.9-15.9)
[2021-11-10 12:44] LABS: CREATININE 2.2 mg/dL (0.55-1.3)
[2021-11-10 13:30] LABS: ALBUMIN 3.5 g/dl (3.4-5.0); BLOOD UREA NITROGEN 45.4 mg/dL (7-18); CALCIUM 8.7 mg/dL (8.5-10.1); TOT PROT 6.4 g/dl (6.4-8.2)
[2021-11-10] MEDS: ZOLPIDEM TARTRATE 5 MG TABLET PO PRN (22:53)
[2021-11-11] MEDS: LEVOTHYROXINE NA 50 MCG TABLET (FP) PO SCH (06:29)
[2021-11-11] MEDS: ASPIRIN COATED 81 MG TABLET.EC PO SCH (09:39)
[2021-11-11] MEDS: FUROSEMIDE 20 MG TABLET (FP) PO SCH (09:39)
[2021-11-11] MEDS: ROSUVASTATIN CA 20 MG TABLET PO SCH (09:39)
[2021-11-11] MEDS: PARoxetine HCL 10 MG TABLET PO SCH (09:39)
[2021-11-11] MEDS: ALLOPURINOL 300 MG TABLET (FP) PO SCH (09:40)
[2021-11-11] MEDS: CARVEDILOL 6.25 MG TABLET (FP) PO SCH ×2 (09:40→22:32)
[2021-11-11] MEDS: APIXABAN 2.5 MG TABLET PO SCH ×2 (09:44→22:31)
[2021-11-11] MEDS: ZOLPIDEM TARTRATE 5 MG TABLET PO PRN (22:31)
[2021-11-12] MEDS: LEVOTHYROXINE NA 50 MCG TABLET (FP) PO SCH (06:28)
[2021-11-12] MEDS: FUROSEMIDE 20 MG TABLET (FP) PO SCH (10:54)
[2021-11-12] MEDS: ALLOPURINOL 300 MG TABLET (FP) PO SCH (10:54)
[2021-11-12] MEDS: ROSUVASTATIN CA 20 MG TABLET PO SCH (10:55)
[2021-11-12] MEDS: APIXABAN 2.5 MG TABLET PO SCH ×2 (10:55→21:29)
[2021-11-12] MEDS: CARVEDILOL 6.25 MG TABLET (FP) PO SCH ×2 (10:55→21:29)
[2021-11-12] MEDS: ASPIRIN COATED 81 MG TABLET.EC PO SCH ×2 (10:55→16:25)
[2021-11-12] MEDS: PARoxetine HCL 10 MG TABLET PO SCH (10:55)
[2021-11-12] MEDS: ZOLPIDEM TARTRATE 5 MG TABLET PO PRN (21:29)
[2021-11-13] MEDS: LEVOTHYROXINE NA 50 MCG TABLET (FP) PO SCH (06:19)
[2021-11-13] MEDS: PARoxetine HCL 10 MG TABLET PO SCH (09:11)
[2021-11-13] MEDS: APIXABAN 2.5 MG TABLET PO SCH ×2 (09:12→21:39)
[2021-11-13] MEDS: CARVEDILOL 6.25 MG TABLET (FP) PO SCH ×2 (09:13→21:39)
[2021-11-13] MEDS: ROSUVASTATIN CA 20 MG TABLET PO SCH (09:18)
[2021-11-13] MEDS: FUROSEMIDE 20 MG TABLET (FP) PO SCH (09:19)
[2021-11-13] MEDS: ASPIRIN COATED 81 MG TABLET.EC PO SCH (09:19)
[2021-11-13] MEDS: ALLOPURINOL 300 MG TABLET (FP) PO SCH (09:20)
[2021-11-14] MEDS ORDERED: ZOLPIDEM TARTRATE 5 MG TABLET PO PRN (02:51)
[2021-11-14] MEDS: LEVOTHYROXINE NA 50 MCG TABLET (FP) PO SCH (06:32)
[2021-11-14] MEDS: ROSUVASTATIN CA 20 MG TABLET PO SCH (10:56)
[2021-11-14] MEDS: CARVEDILOL 6.25 MG TABLET (FP) PO SCH ×2 (10:56→21:53)
[2021-11-14] MEDS: ASPIRIN COATED 81 MG TABLET.EC PO SCH (10:56)
[2021-11-14] MEDS: PARoxetine HCL 10 MG TABLET PO SCH (10:56)
[2021-11-14] MEDS: FUROSEMIDE 20 MG TABLET (FP) PO SCH (10:56)
[2021-11-14] MEDS: APIXABAN 2.5 MG TABLET PO SCH ×2 (10:56→21:53)
[2021-11-14] MEDS: ALLOPURINOL 300 MG TABLET (FP) PO SCH (11:07)
[2021-11-14] MEDS ORDERED: guaiFENesin 200 MG/10 ML 10 ML UNIT-DOSE CUPS PO PRN (20:07)
[2021-11-14] MEDS ORDERED: SODIUM CHLORIDE NASAL SPRAY 44 ML BOTTLE NS PRN (20:07)
[2021-11-14] MEDS ORDERED: POLYETHYLENE GLYCOL (HEALTHYLAX) 3350 17 GM PACKET PO PRN (20:07)
[2021-11-14 21:25] VITALS: BMI 23.1
[2021-11-14] MEDS: ZOLPIDEM TARTRATE 5 MG TABLET PO PRN (21:55)
[2021-11-15] MEDS: LEVOTHYROXINE NA 50 MCG TABLET (FP) PO SCH (06:11)
[2021-11-15] MEDS: ASPIRIN COATED 81 MG TABLET.EC PO SCH (10:21)
[2021-11-15] MEDS: CARVEDILOL 6.25 MG TABLET (FP) PO SCH ×2 (10:21→21:08)
[2021-11-15] MEDS: PARoxetine HCL 10 MG TABLET PO SCH (10:23)
[2021-11-15] MEDS: ROSUVASTATIN CA 20 MG TABLET PO SCH (10:23)
[2021-11-15] MEDS: APIXABAN 2.5 MG TABLET PO SCH ×2 (10:23→21:08)
[2021-11-15] MEDS: ALLOPURINOL 300 MG TABLET (FP) PO SCH (10:23)
[2021-11-15] MEDS: FUROSEMIDE 20 MG TABLET (FP) PO SCH (10:23)
[2021-11-15] MEDS: ZOLPIDEM TARTRATE 5 MG TABLET PO PRN (21:08)
[2021-11-16] MEDS: LEVOTHYROXINE NA 50 MCG TABLET (FP) PO SCH (06:08)
[2021-11-16 06:45] VITALS: PULSE 75
[2021-11-16] MEDS: FUROSEMIDE 20 MG TABLET (FP) PO SCH (09:47)
[2021-11-16] MEDS: ASPIRIN COATED 81 MG TABLET.EC PO SCH (09:47)
[2021-11-16] MEDS: PARoxetine HCL 10 MG TABLET PO SCH (09:47)
[2021-11-16] MEDS: CARVEDILOL 6.25 MG TABLET (FP) PO SCH (09:47)
[2021-11-16] MEDS: ROSUVASTATIN CA 20 MG TABLET PO SCH (09:47)
[2021-11-16] MEDS: APIXABAN 2.5 MG TABLET PO SCH (09:47)
[2021-11-16] MEDS: ALLOPURINOL 300 MG TABLET (FP) PO SCH (09:47)
[2021-11-16 10:02] VITALS: BP 92/66; TEMP 97.2
== END 2021-11-16 12:22 | disposition home or self-care (01) | DRG 291 ==
LOC: JER 22:49 → JERBED 11-07 02:30 → J4W 11-07 11:35 → OBSVTOIN 11-10 10:41 → J4W 11-11 23:28 → J5S 11-14 20:27
PROVIDERS: ADMIT Internal Medicine; ATTEND Internal Medicine
DX: I13.0 Hypertensive heart and chronic kidney disease with heart failure and stage 1 through stage 4 chronic kidney disease, or unspecified chronic kidney disease (principal); I50.43 Acute on chronic combined systolic (congestive) and diastolic (congestive) heart failure; N17.9 Acute kidney failure, unspecified; N39.0 Urinary tract infection, site not specified; I48.92 Unspecified atrial flutter; I25.10 Atherosclerotic heart disease of native coronary artery without angina pectoris; Z95.1 Presence of aortocoronary bypass graft; E03.9 Hypothyroidism, unspecified; E78.00 Pure hypercholesterolemia, unspecified; Z95.2 Presence of prosthetic heart valve; N18.9 Chronic kidney disease, unspecified; Z95.810 Presence of automatic (implantable) cardiac defibrillator; I73.9 Peripheral vascular disease, unspecified; F41.9 Anxiety disorder, unspecified; Z88.0 Allergy status to penicillin; D47.2 Monoclonal gammopathy; N18.30 Chronic kidney disease, stage 3 unspecified; F32.9 Major depressive disorder, single episode, unspecified
CPT/HCPCS: 36415; 71045-TC-FY; 71046-TC-FY; 80053; 81003; 83735; 83880; 84439; 84443; 84484; 85025; 87040; 87086; 93005; 93010; 97116-GP; 97161-GP; 99285-25; C9803-CS; G0378; U0003; U0005

== ENCOUNTER 2022-04-06 13:20 | Inpatient (IN) | payer OTHER, MEDICARE ==
[2022-04-06 15:14] LABS: BASO % 0.8 % (0-2.0); EOS % 1.4 % (0-4.5); HEMATOCRIT 43.1 % (35.4-49); LYMPH % 20.9 % (8-40); MCH 31.4 pg (25.7-33.7); MCHC 32.5 g/dl (32.0-35.9); MEAN CELL VOLUME 96.7 fl (80-96); MEAN PLT VOLUME 8.8 fl (7.5-11.1); MONO % 8.4 % (3.8-10.2); NEUT % 68.5 % (42.8-82.8); PLATELET COUNT 117 10^3/uL (134-434); RBC 4.46 M/mm3 (4.00-5.60); RDW 15.6 % (11.9-15.9); WHITE BLOOD COUNT 5.9 K/mm3 (4.0-10.0)
[2022-04-06] MEDS ORDERED: SODIUM CHLORIDE 500 ML IV ONE (15:18)
[2022-04-06 15:27] LABS: INR 1.53 (0.83-1.09); PROTHROMBIN TIME (PATIENT) 17.7 SEC (9.7-13.0)
[2022-04-06 15:30] LABS: ACTIVATED PTT 37.2 SECONDS (25.2-36.5)
[2022-04-06 15:50] LABS: CHLORIDE 103 mmol/L (98-107); SODIUM 136 mmol/L (136-145)
[2022-04-06 15:54] LABS: ALBUMIN 3.8 g/dl (3.4-5.0); ANION GAP 8 MMOL/L (8-16); BLOOD UREA NITROGEN 32.4 mg/dL (7-18); CALCIUM 9.3 mg/dL (8.5-10.1); CO2 24 mmol/L (21-32); GLUCOSE,RANDOM 95 mg/dL (74-106)
[2022-04-06] MEDS ORDERED: SODIUM POLYSTYRENE SULFONATE 15 GM/60 ML BOTTLE PO ONE (15:57)
[2022-04-06 15:58] LABS: CREATININE 2.2 mg/dL (0.55-1.3); SGOT/AST 44 U/L (15-37); SGPT/ALT 32 U/L (13-61)
[2022-04-06 16:00] LABS: ALK PHOS 117 U/L (45-117); BILIRUBIN,TOTAL 1.2 mg/dL (0.2-1); TOT PROT 6.8 g/dl (6.4-8.2)
[2022-04-06] MEDS ORDERED: SODIUM POLYSTYRENE SULFONATE 15 GM/60 ML BOTTLE ONE (16:02)
[2022-04-06 16:05] LABS: EPI CELLS 6 /uL (0-25.1); HYALINE CASTS 1 /uL (0-3.1); PH,URINE 7.5 (5.0-8.0); URINE APPEARANCE CLEAR; URINE BACTERIA 18 /uL (0-1359); URINE BILIRUBIN NEGATIVE (NEGATIVE); URINE COLOR YELLOW; URINE GLUCOSE (UA) NEGATIVE (NEGATIVE); URINE KETONE NEGATIVE (NEGATIVE); URINE LEUK ESTERASE TRACE (NEGATIVE); URINE NITRITE NEGATIVE (NEGATIVE); URINE PROTEIN 2+ (NEGATIVE); URINE RBC 11 /uL (0-23.9); URINE WBC 3 /uL (0-25.8)
[2022-04-07] MEDS ORDERED: POLYETHYLENE GLYCOL (HEALTHYLAX) 3350 17 GM PACKET PO PRN (01:37)
[2022-04-07] MEDS ORDERED: SODIUM CHLORIDE NASAL SPRAY 44 ML BOTTLE NS PRN (01:37)
[2022-04-07] MEDS ORDERED: APIXABAN 2.5 MG TABLET ONE ×2 (02:17→09:40)
[2022-04-07] MEDS: APIXABAN 2.5 MG TABLET PO SCH ×3 (02:27→21:11)
[2022-04-07] MEDS ORDERED: LEVOTHYROXINE NA 50 MCG TABLET (FP) ONE (08:08)
[2022-04-07] MEDS: LEVOTHYROXINE NA 50 MCG TABLET (FP) PO SCH (08:10)
[2022-04-07 08:27] LABS: BASO % 0.5 % (0-2.0); EOS % 0.6 % (0-4.5); HEMATOCRIT 41.9 % (35.4-49); HEMOGLOBIN 13.9 GM/dL (11.7-16.9); LYMPH % 13.8 % (8-40); MCH 31.9 pg (25.7-33.7); MCHC 33.1 g/dl (32.0-35.9); MEAN CELL VOLUME 96.3 fl (80-96); MEAN PLT VOLUME 9.4 fl (7.5-11.1); MONO % 8.8 % (3.8-10.2); NEUT % 76.3 % (42.8-82.8); PLATELET COUNT 111 10^3/uL (134-434); RBC 4.35 M/mm3 (4.00-5.60); RDW 15.5 % (11.9-15.9); WHITE BLOOD COUNT 7.4 K/mm3 (4.0-10.0)
[2022-04-07] MEDS ORDERED: PANTOPRAZOLE 40 MG TABLET PO ONE (09:39)
[2022-04-07] MEDS ORDERED: ASPIRIN COATED 81 MG TABLET.EC ONE (09:39)
[2022-04-07] MEDS ORDERED: CARVEDILOL 6.25 MG TABLET (FP) ONE (09:40)
[2022-04-07] MEDS ORDERED: FUROSEMIDE 20 MG TABLET (FP) ONE (09:40)
[2022-04-07] MEDS: ASPIRIN COATED 81 MG TABLET.EC PO SCH (09:46)
[2022-04-07] MEDS: CARVEDILOL 6.25 MG TABLET (FP) PO SCH ×2 (09:46→21:11)
[2022-04-07] MEDS: PANTOPRAZOLE 40 MG TABLET PO SCH (09:47)
[2022-04-07] MEDS: ALLOPURINOL 300 MG TABLET (FP) PO SCH (09:47)
[2022-04-07] MEDS: PARoxetine HCL 10 MG TABLET PO SCH (09:47)
[2022-04-07] MEDS ORDERED: FUROSEMIDE 20 MG TABLET (FP) PO SCH (10:00)
[2022-04-07 10:49] LABS: CHLORIDE 104 mmol/L (98-107); SODIUM 139 mmol/L (136-145)
[2022-04-07 10:51] LABS: ANION GAP 13 MMOL/L (8-16); BLOOD UREA NITROGEN 32.3 mg/dL (7-18); CO2 22 mmol/L (21-32); GLUCOSE,RANDOM 82 mg/dL (74-106)
[2022-04-07 10:53] LABS: CALCIUM 9.5 mg/dL (8.5-10.1)
[2022-04-07 10:54] LABS: CREATININE 2.1 mg/dL (0.55-1.3)
[2022-04-07] MEDS: MONTELUKAST NA 10 MG TABLET PO SCH (21:16)
[2022-04-07] MEDS: ROSUVASTATIN CA 20 MG TABLET PO SCH (21:16)
[2022-04-07] MEDS: MIRTAZAPINE 15 MG TABLET (FP) PO SCH (21:16)
[2022-04-07] MEDS: ZOLPIDEM TARTRATE 5 MG TABLET PO PRN (21:19)
[2022-04-08] MEDS: LEVOTHYROXINE NA 50 MCG TABLET (FP) PO SCH (06:23)
[2022-04-08 09:41] LABS: CALCIUM 9.1 mg/dL (8.5-10.1)
[2022-04-08 09:43] LABS: BLOOD UREA NITROGEN 39.3 mg/dL (7-18)
[2022-04-08 09:45] LABS: CREATININE 2.1 mg/dL (0.55-1.3)
[2022-04-08] MEDS: FUROSEMIDE 40 MG/4 ML INJECTABLE VIAL IVPUSH SCH (10:22)
[2022-04-08] MEDS: PARoxetine HCL 10 MG TABLET PO SCH (10:23)
[2022-04-08] MEDS: APIXABAN 2.5 MG TABLET PO SCH ×2 (10:23→21:30)
[2022-04-08] MEDS: ALLOPURINOL 300 MG TABLET (FP) PO SCH (10:23)
[2022-04-08] MEDS: ASPIRIN COATED 81 MG TABLET.EC PO SCH (10:23)
[2022-04-08] MEDS: PANTOPRAZOLE 40 MG TABLET PO SCH (10:23)
[2022-04-08] MEDS: CARVEDILOL 6.25 MG TABLET (FP) PO SCH ×2 (10:23→21:30)
[2022-04-08] MEDS: MIRTAZAPINE 15 MG TABLET (FP) PO SCH (21:30)
[2022-04-08] MEDS: ROSUVASTATIN CA 20 MG TABLET PO SCH (21:30)
[2022-04-08] MEDS: MONTELUKAST NA 10 MG TABLET PO SCH (21:31)
[2022-04-08] MEDS: ZOLPIDEM TARTRATE 5 MG TABLET PO PRN (21:32)
[2022-04-09] MEDS: LEVOTHYROXINE NA 50 MCG TABLET (FP) PO SCH (06:46)
[2022-04-09 07:45] LABS: CALCIUM 8.9 mg/dL (8.5-10.1)
[2022-04-09 07:47] LABS: BLOOD UREA NITROGEN 42.8 mg/dL (7-18)
[2022-04-09 07:49] LABS: CREATININE 2.1 mg/dL (0.55-1.3)
[2022-04-09] MEDS: APIXABAN 2.5 MG TABLET PO SCH ×2 (09:01→21:30)
[2022-04-09] MEDS: FUROSEMIDE 40 MG/4 ML INJECTABLE VIAL IVPUSH SCH (09:01)
[2022-04-09] MEDS: ASPIRIN COATED 81 MG TABLET.EC PO SCH (09:01)
[2022-04-09] MEDS: ALLOPURINOL 300 MG TABLET (FP) PO SCH (09:01)
[2022-04-09] MEDS: CARVEDILOL 6.25 MG TABLET (FP) PO SCH ×2 (09:01→21:30)
[2022-04-09] MEDS: PARoxetine HCL 10 MG TABLET PO SCH (09:01)
[2022-04-09] MEDS: PANTOPRAZOLE 40 MG TABLET PO SCH (09:01)
[2022-04-09] MEDS: ZOLPIDEM TARTRATE 5 MG TABLET PO PRN (21:30)
[2022-04-09] MEDS: MIRTAZAPINE 15 MG TABLET (FP) PO SCH (21:30)
[2022-04-09] MEDS: MONTELUKAST NA 10 MG TABLET PO SCH (21:31)
[2022-04-09] MEDS: ROSUVASTATIN CA 20 MG TABLET PO SCH (21:31)
[2022-04-10] MEDS: LEVOTHYROXINE NA 50 MCG TABLET (FP) PO SCH (06:29)
[2022-04-10] MEDS: FUROSEMIDE 40 MG/4 ML INJECTABLE VIAL IVPUSH SCH (09:14)
[2022-04-10] MEDS: ASPIRIN COATED 81 MG TABLET.EC PO SCH (09:14)
[2022-04-10] MEDS: CARVEDILOL 6.25 MG TABLET (FP) PO SCH ×2 (09:14→21:16)
[2022-04-10] MEDS: PANTOPRAZOLE 40 MG TABLET PO SCH (09:14)
[2022-04-10] MEDS: PARoxetine HCL 10 MG TABLET PO SCH (09:14)
[2022-04-10] MEDS: ALLOPURINOL 300 MG TABLET (FP) PO SCH (09:14)
[2022-04-10] MEDS: APIXABAN 2.5 MG TABLET PO SCH ×2 (09:14→21:15)
[2022-04-10] MEDS: MIRTAZAPINE 15 MG TABLET (FP) PO SCH (21:15)
[2022-04-10] MEDS: MONTELUKAST NA 10 MG TABLET PO SCH (21:15)
[2022-04-10] MEDS: ROSUVASTATIN CA 20 MG TABLET PO SCH (21:15)
[2022-04-10] MEDS ORDERED: ZOLPIDEM TARTRATE 5 MG TABLET PO PRN (21:30)
[2022-04-11] MEDS ORDERED: POLYETHYLENE GLYCOL (HEALTHYLAX) 3350 17 GM PACKET PO PRN (05:39)
[2022-04-11] MEDS: LEVOTHYROXINE NA 50 MCG TABLET (FP) PO SCH (07:18)
[2022-04-11] MEDS: APIXABAN 2.5 MG TABLET PO SCH ×2 (10:42→21:20)
[2022-04-11] MEDS: ASPIRIN COATED 81 MG TABLET.EC PO SCH (10:42)
[2022-04-11] MEDS: PANTOPRAZOLE 40 MG TABLET PO SCH (10:43)
[2022-04-11] MEDS: PARoxetine HCL 10 MG TABLET PO SCH (10:45)
[2022-04-11] MEDS: CARVEDILOL 6.25 MG TABLET (FP) PO SCH ×2 (10:55→21:20)
[2022-04-11] MEDS: FUROSEMIDE 40 MG TABLET (FP) PO SCH (10:55)
[2022-04-11] MEDS: ALLOPURINOL 300 MG TABLET (FP) PO SCH (18:17)
[2022-04-11] MEDS: MONTELUKAST NA 10 MG TABLET PO SCH (21:20)
[2022-04-11] MEDS: ROSUVASTATIN CA 20 MG TABLET PO SCH (21:20)
[2022-04-11] MEDS: MIRTAZAPINE 15 MG TABLET (FP) PO SCH (21:20)
[2022-04-12] MEDS: LEVOTHYROXINE NA 50 MCG TABLET (FP) PO SCH (07:05)
[2022-04-12] MEDS: PARoxetine HCL 10 MG TABLET PO SCH (09:54)
[2022-04-12] MEDS: FUROSEMIDE 40 MG TABLET (FP) PO SCH (09:54)
[2022-04-12] MEDS: CARVEDILOL 6.25 MG TABLET (FP) PO SCH ×2 (09:54→21:47)
[2022-04-12] MEDS: ALLOPURINOL 300 MG TABLET (FP) PO SCH (09:54)
[2022-04-12] MEDS: ASPIRIN COATED 81 MG TABLET.EC PO SCH (09:54)
[2022-04-12] MEDS: PANTOPRAZOLE 40 MG TABLET PO SCH (09:54)
[2022-04-12] MEDS: APIXABAN 2.5 MG TABLET PO SCH ×2 (09:54→21:47)
[2022-04-12] MEDS: MONTELUKAST NA 10 MG TABLET PO SCH (21:47)
[2022-04-12] MEDS: ROSUVASTATIN CA 20 MG TABLET PO SCH (21:47)
[2022-04-12] MEDS: MIRTAZAPINE 15 MG TABLET (FP) PO SCH (21:48)
[2022-04-13] MEDS: LEVOTHYROXINE NA 50 MCG TABLET (FP) PO SCH (06:41)
[2022-04-13] MEDS: PANTOPRAZOLE 40 MG TABLET PO SCH (09:20)
[2022-04-13] MEDS: ALLOPURINOL 300 MG TABLET (FP) PO SCH (09:20)
[2022-04-13] MEDS: CARVEDILOL 6.25 MG TABLET (FP) PO SCH ×2 (09:20→22:00)
[2022-04-13] MEDS: APIXABAN 2.5 MG TABLET PO SCH ×2 (09:20→22:00)
[2022-04-13] MEDS: FUROSEMIDE 40 MG TABLET (FP) PO SCH (09:20)
[2022-04-13] MEDS: ASPIRIN COATED 81 MG TABLET.EC PO SCH (09:20)
[2022-04-13] MEDS: PARoxetine HCL 10 MG TABLET PO SCH (09:20)
[2022-04-13] MEDS: MIRTAZAPINE 15 MG TABLET (FP) PO SCH (21:59)
[2022-04-13] MEDS: ROSUVASTATIN CA 20 MG TABLET PO SCH (22:00)
[2022-04-13] MEDS: MONTELUKAST NA 10 MG TABLET PO SCH (22:00)
[2022-04-14] MEDS: LEVOTHYROXINE NA 50 MCG TABLET (FP) PO SCH (06:37)
[2022-04-14] MEDS: FUROSEMIDE 40 MG TABLET (FP) PO SCH (09:51)
[2022-04-14] MEDS: APIXABAN 2.5 MG TABLET PO SCH (09:51)
[2022-04-14] MEDS: CARVEDILOL 6.25 MG TABLET (FP) PO SCH (09:51)
[2022-04-14] MEDS: PANTOPRAZOLE 40 MG TABLET PO SCH (09:51)
[2022-04-14] MEDS: ALLOPURINOL 300 MG TABLET (FP) PO SCH (09:51)
[2022-04-14] MEDS: ASPIRIN COATED 81 MG TABLET.EC PO SCH (09:51)
[2022-04-14] MEDS: PARoxetine HCL 10 MG TABLET PO SCH (09:52)
[2022-04-14 11:41] VITALS: PULSE 78; RESP 18
[2022-04-14 14:02] VITALS: BMI 25.0
[2022-04-14 14:23] VITALS: BP 113/74; TEMP 97.6
== END 2022-04-14 14:49 | DRG 291 ==
LOC: JER 13:20 → UNDOADMOB 16:13 → JERBED 16:13 → INTOOBSV 16:13 → JERBED 16:19 → J4W 04-07 14:12 → OBSVTOIN 04-09 16:19 → J6S 04-11 06:05
PROVIDERS: ADMIT Hospitalist; ATTEND Internal Medicine
DX: I13.0 Hypertensive heart and chronic kidney disease with heart failure and stage 1 through stage 4 chronic kidney disease, or unspecified chronic kidney disease (principal); I50.43 Acute on chronic combined systolic (congestive) and diastolic (congestive) heart failure; I48.0 Paroxysmal atrial fibrillation; I25.10 Atherosclerotic heart disease of native coronary artery without angina pectoris; N18.1 Chronic kidney disease, stage 1; E03.9 Hypothyroidism, unspecified; E87.5 Hyperkalemia; I73.9 Peripheral vascular disease, unspecified; D69.6 Thrombocytopenia, unspecified
CPT/HCPCS: 36415; 71045-TC-FY; 80048; 80053; 81003; 82962; 84132; 84439; 84443; 84484; 85025; 85610; 85730; 87086; 93005; 93010; 93306-TC; 97116-GP; 97161-GP; 99285-25; C9803-CS; G0378; U0003; U0005

== ENCOUNTER 2022-06-09 10:36 | Inpatient (IN) | payer OTHER, MEDICARE ==
[2022-06-09 10:50] VITALS: BMI 25.0
[2022-06-09 14:54] LABS: BASO % 0.7 % (0-2.0); EOS % 2.7 % (0-4.5); HEMATOCRIT 42.7 % (35.4-49); HEMOGLOBIN 13.6 GM/dL (11.7-16.9); LYMPH % 30.2 % (8-40); MCH 30.5 pg (25.7-33.7); MCHC 31.8 g/dl (32.0-35.9); MEAN CELL VOLUME 95.8 fl (80-96); MEAN PLT VOLUME 8.8 fl (7.5-11.1); MONO % 7.2 % (3.8-10.2); NEUT % 59.2 % (42.8-82.8); PLATELET COUNT 145 10^3/uL (134-434); RBC 4.46 M/mm3 (4.00-5.60); RDW 16.2 % (11.9-15.9); WHITE BLOOD COUNT 5.2 K/mm3 (4.0-10.0)
[2022-06-09 15:02] LABS: INR 1.39 (0.83-1.09)
[2022-06-09 15:04] LABS: ACTIVATED PTT 33.5 SECONDS (25.2-36.5)
[2022-06-09 15:17] LABS: CHLORIDE 101 mmol/L (98-107); SODIUM 139 mmol/L (136-145)
[2022-06-09 15:18] LABS: CALCIUM 9.3 mg/dL (8.5-10.1)
[2022-06-09 15:20] LABS: ALBUMIN 3.6 g/dl (3.4-5.0); ANION GAP 12 MMOL/L (8-16); BLOOD UREA NITROGEN 44.1 mg/dL (7-18); CO2 26 mmol/L (21-32); GLUCOSE,RANDOM 93 mg/dL (74-106)
[2022-06-09 15:23] LABS: CREATININE 2.8 mg/dL (0.55-1.3); SGOT/AST 30 U/L (15-37); SGPT/ALT 22 U/L (13-61)
[2022-06-09 15:24] LABS: BILIRUBIN,TOTAL 0.6 mg/dL (0.2-1)
[2022-06-09 15:26] LABS: ALK PHOS 99 U/L (45-117)
[2022-06-09] MEDS ORDERED: ASPIRIN 325 MG TABLET PO ONE (15:32)
[2022-06-09] MEDS ORDERED: FUROSEMIDE 40 MG/4 ML INJECTABLE VIAL IVPB ONE (16:05)
[2022-06-09] MEDS ORDERED: ASPIRIN 325 MG TABLET ONE (16:11)
[2022-06-09] MEDS ORDERED: FUROSEMIDE 40 MG/4 ML INJECTABLE VIAL ONE (16:11)
[2022-06-09] MEDS ORDERED: POLYETHYLENE GLYCOL (HEALTHYLAX) 3350 17 GM PACKET PO PRN (18:12)
[2022-06-09] MEDS: APIXABAN 2.5 MG TABLET PO SCH (21:23)
[2022-06-09] MEDS: CARVEDILOL 6.25 MG TABLET (FP) PO SCH (21:24)
[2022-06-09] MEDS: ROSUVASTATIN CA 10 MG TABLET PO SCH (22:20)
[2022-06-10] MEDS: LEVOTHYROXINE NA 50 MCG TABLET (FP) PO SCH (06:18)
[2022-06-10 07:59] LABS: BASO % 0.5 % (0-2.0); EOS % 2.4 % (0-4.5); HEMATOCRIT 42.9 % (35.4-49); HEMOGLOBIN 13.8 GM/dL (11.7-16.9); LYMPH % 30.9 % (8-40); MCH 30.9 pg (25.7-33.7); MCHC 32.1 g/dl (32.0-35.9); MEAN PLT VOLUME 9.1 fl (7.5-11.1); NEUT % 58.2 % (42.8-82.8); PLATELET COUNT 151 10^3/uL (134-434); RBC 4.47 M/mm3 (4.00-5.60); RDW 16.2 % (11.9-15.9); WHITE BLOOD COUNT 5.4 K/mm3 (4.0-10.0)
[2022-06-10 08:22] LABS: ALBUMIN 3.5 g/dl (3.4-5.0); BLOOD UREA NITROGEN 45.3 mg/dL (7-18); CREATININE 2.7 mg/dL (0.55-1.3)
[2022-06-10 08:23] LABS: CALCIUM 9.3 mg/dL (8.5-10.1); TOT PROT 6.7 g/dl (6.4-8.2)
[2022-06-10 08:25] LABS: BILIRUBIN,TOTAL 0.6 mg/dL (0.2-1)
[2022-06-10] MEDS: PARoxetine HCL 10 MG TABLET PO SCH (09:10)
[2022-06-10] MEDS: ASPIRIN 81 MG CHEWABLE TABLETS PO SCH (09:10)
[2022-06-10] MEDS: ALLOPURINOL 300 MG TABLET (FP) PO SCH (09:10)
[2022-06-10] MEDS: APIXABAN 2.5 MG TABLET PO SCH ×2 (09:11→21:38)
[2022-06-10] MEDS ORDERED: ROSUVASTATIN CA 20 MG TABLET PO SCH (10:00)
[2022-06-10] MEDS ORDERED: PATIENT'S OWN MEDICATION (NON-FORMULARY) (Empagliflozin [Jardiance] 10 MG Tablet) PO SCH (10:00)
[2022-06-10] MEDS: FUROSEMIDE 40 MG/4 ML INJECTABLE VIAL IVPUSH SCH (11:44)
[2022-06-10] MEDS: CARVEDILOL 6.25 MG TABLET (FP) PO SCH ×2 (11:44→21:38)
[2022-06-10] MEDS: ZOLPIDEM TARTRATE 5 MG TABLET PO PRN (21:38)
[2022-06-10] MEDS: LORATADINE 10 MG TABLET PO SCH (21:38)
[2022-06-10] MEDS: ROSUVASTATIN CA 10 MG TABLET PO SCH (21:38)
[2022-06-11] MEDS: LEVOTHYROXINE NA 50 MCG TABLET (FP) PO SCH (06:02)
[2022-06-11 08:04] LABS: CALCIUM 8.9 mg/dL (8.5-10.1)
[2022-06-11 08:06] LABS: BLOOD UREA NITROGEN 49.9 mg/dL (7-18)
[2022-06-11 08:08] LABS: CREATININE 2.6 mg/dL (0.55-1.3)
[2022-06-11] MEDS: ASPIRIN 81 MG CHEWABLE TABLETS PO SCH (09:12)
[2022-06-11] MEDS: LORATADINE 10 MG TABLET PO SCH (09:13)
[2022-06-11] MEDS: APIXABAN 2.5 MG TABLET PO SCH ×2 (09:14→21:35)
[2022-06-11] MEDS: PARoxetine HCL 10 MG TABLET PO SCH (09:15)
[2022-06-11] MEDS: ALLOPURINOL 300 MG TABLET (FP) PO SCH (09:15)
[2022-06-11] MEDS: FUROSEMIDE 40 MG/4 ML INJECTABLE VIAL IVPUSH SCH (09:16)
[2022-06-11] MEDS: CARVEDILOL 6.25 MG TABLET (FP) PO SCH ×2 (09:16→21:32)
[2022-06-11] MEDS: guaiFENesin 600 MG TABLET.ER (FP) PO SCH ×2 (10:16→21:35)
[2022-06-11] MEDS: ZOLPIDEM TARTRATE 5 MG TABLET PO PRN (21:35)
[2022-06-11] MEDS: ROSUVASTATIN CA 10 MG TABLET PO SCH (21:35)
[2022-06-12] VITALS: PULSE 75
[2022-06-12] MEDS: LEVOTHYROXINE NA 50 MCG TABLET (FP) PO SCH (06:41)
[2022-06-12 08:23] VITALS: RESP 18
[2022-06-12] MEDS: LORATADINE 10 MG TABLET PO SCH (09:13)
[2022-06-12] MEDS: APIXABAN 2.5 MG TABLET PO SCH (09:13)
[2022-06-12] MEDS: PARoxetine HCL 10 MG TABLET PO SCH (09:13)
[2022-06-12] MEDS: guaiFENesin 600 MG TABLET.ER (FP) PO SCH (09:13)
[2022-06-12] MEDS: FUROSEMIDE 40 MG/4 ML INJECTABLE VIAL IVPUSH SCH (09:14)
[2022-06-12] MEDS: ALLOPURINOL 300 MG TABLET (FP) PO SCH (09:14)
[2022-06-12] MEDS: ASPIRIN 81 MG CHEWABLE TABLETS PO SCH (09:14)
[2022-06-12] MEDS: CARVEDILOL 6.25 MG TABLET (FP) PO SCH (09:14)
[2022-06-12 09:22] VITALS: BP 89/67; TEMP 98
== END 2022-06-12 12:02 | disposition home or self-care (01) | DRG 291 ==
LOC: JER 10:36 → JERBED 15:55 → J4W 16:48
PROVIDERS: ADMIT Internal Medicine; ATTEND Internal Medicine
DX: I13.0 Hypertensive heart and chronic kidney disease with heart failure and stage 1 through stage 4 chronic kidney disease, or unspecified chronic kidney disease (principal); I50.23 Acute on chronic systolic (congestive) heart failure; I48.19 Other persistent atrial fibrillation; N17.9 Acute kidney failure, unspecified; I24.8 Other forms of acute ischemic heart disease; F41.9 Anxiety disorder, unspecified; E03.9 Hypothyroidism, unspecified; N18.30 Chronic kidney disease, stage 3 unspecified; Z95.2 Presence of prosthetic heart valve; Z88.0 Allergy status to penicillin; I25.10 Atherosclerotic heart disease of native coronary artery without angina pectoris; Z95.0 Presence of cardiac pacemaker; Z86.16 Personal history of COVID-19; I73.9 Peripheral vascular disease, unspecified; F32.A Depression, unspecified
CPT/HCPCS: 0241U-QW; 36415; 71045-TC-FY; 76775-TC; 76856-TC; 80048; 80053; 82550; 84439; 84443; 84484; 85025; 85610; 85730; 93005; 93010; 97116-GP; 97161-GP; 99285-25

== ENCOUNTER 2023-07-06 11:42 | Inpatient (IN) | payer OTHER, MEDICARE ==
[2023-07-06 14:35] LABS: BASO % 0.5 % (0-2.0); EOS % 2.4 % (0-4.5); HEMATOCRIT 43.6 % (35.4-49); HEMOGLOBIN 14.1 GM/dL (11.7-16.9); MCH 30.3 pg (25.7-33.7); MCHC 32.4 g/dl (32.0-35.9); MEAN CELL VOLUME 93.4 fl (80-96); MEAN PLT VOLUME 9.7 fl (7.5-11.1); NEUT % 61.1 % (42.8-82.8); PLATELET COUNT 130 10^3/uL (134-434); RBC 4.66 M/mm3 (4.00-5.60); RDW 18.3 % (11.9-15.9); WHITE BLOOD COUNT 4.7 K/mm3 (4.0-10.0)
[2023-07-06 14:52] LABS: CHLORIDE 108 mmol/L (98-107); SODIUM 136 mmol/L (136-145)
[2023-07-06 14:54] LABS: CALCIUM 8.7 mg/dL (8.5-10.1)
[2023-07-06 14:55] LABS: ALBUMIN 3.4 g/dl (3.4-5.0); CO2 22 mmol/L (21-32); GLUCOSE,RANDOM 91 mg/dL (74-106)
[2023-07-06 14:58] LABS: CREATININE 2.3 mg/dL (0.55-1.3); SGOT/AST 52 U/L (15-37)
[2023-07-06 14:59] LABS: BILIRUBIN,TOTAL 0.9 mg/dL (0.2-1); TOT PROT 7.1 g/dl (6.4-8.2)
[2023-07-06 15:01] LABS: ALK PHOS 107 U/L (45-117)
[2023-07-06 15:02] LABS: ANION GAP 7 mmol/L (4-13); POTASSIUM 6.9 mmol/L (3.5-5.1); SGPT/ALT 23 U/L (13-61)
[2023-07-06 15:45] LABS: POTASSIUM 4.7 mmol/L (3.5-5.1)
[2023-07-06 15:46] LABS: CALCIUM 8.9 mg/dL (8.5-10.1)
[2023-07-06 15:47] LABS: BLOOD UREA NITROGEN 39.3 mg/dL (7-18)
[2023-07-06 15:50] LABS: EPI CELLS 8 /uL (0-25.1); HYALINE CASTS 1 /uL (0-3.1); PH,URINE 5.5 (5.0-8.0); URINE APPEARANCE CLEAR; URINE BACTERIA 1 /uL (0-1359); URINE BILIRUBIN NEGATIVE (NEGATIVE); URINE COLOR YELLOW; URINE GLUCOSE (UA) NEGATIVE (NEGATIVE); URINE KETONE NEGATIVE (NEGATIVE); URINE LEUK ESTERASE NEGATIVE (NEGATIVE); URINE NITRITE NEGATIVE (NEGATIVE); URINE PROTEIN 1+ (NEGATIVE); URINE RBC 15 /uL (0-23.9); URINE UROBILINOGEN 0.2 mg/dL (0.2-1.0); URINE WBC 7 /uL (0-25.8)
[2023-07-06 15:50] LABS: CREATININE 2.3 mg/dL (0.55-1.3)
[2023-07-06] MEDS ORDERED: FUROSEMIDE 40 MG/4 ML INJECTABLE VIAL IVPUSH ONE (15:59)
[2023-07-06] MEDS ORDERED: ASPIRIN 81 MG CHEWABLE TABLETS PO ONE (16:01)
[2023-07-06] MEDS ORDERED: FUROSEMIDE 40 MG/4 ML INJECTABLE VIAL ONE (17:16)
[2023-07-06] MEDS ORDERED: APIXABAN 2.5 MG TABLET ONE (21:10)
[2023-07-06] MEDS: APIXABAN 2.5 MG TABLET PO SCH (21:15)
[2023-07-07 08:18] LABS: HEMATOCRIT 40.6 % (35.4-49); HEMOGLOBIN 13.3 GM/dL (11.7-16.9); MCH 30.3 pg (25.7-33.7); MCHC 32.7 g/dl (32.0-35.9); MEAN CELL VOLUME 92.8 fl (80-96); MEAN PLT VOLUME 9.5 fl (7.5-11.1); PLATELET COUNT 111 10^3/uL (134-434); RBC 4.38 M/mm3 (4.00-5.60); WHITE BLOOD COUNT 4.6 K/mm3 (4.0-10.0)
[2023-07-07 08:36] LABS: POTASSIUM 4.2 mmol/L (3.5-5.1)
[2023-07-07 08:54] LABS: ALBUMIN 3.2 g/dl (3.4-5.0); BLOOD UREA NITROGEN 40.6 mg/dL (7-18); CALCIUM 8.5 mg/dL (8.5-10.1); MAGNESIUM 1.9 mg/dL (1.8-2.4); TOT PROT 6.3 g/dl (6.4-8.2)
[2023-07-07 08:55] LABS: PHOSPHOROUS 3.3 mg/dL (2.5-4.9)
[2023-07-07 08:57] LABS: CREATININE 2.1 mg/dL (0.55-1.3)
[2023-07-07] MEDS: APIXABAN 2.5 MG TABLET PO SCH ×2 (09:27→21:12)
[2023-07-07] MEDS: ASPIRIN COATED 81 MG TABLET.EC PO SCH (09:27)
[2023-07-07] MEDS ORDERED: ROSUVASTATIN CA 20 MG TABLET PO SCH (10:00)
[2023-07-07] MEDS ORDERED: FUROSEMIDE 40 MG/4 ML INJECTABLE VIAL ONE (11:38)
[2023-07-07] MEDS: FUROSEMIDE 40 MG/4 ML INJECTABLE VIAL IVPUSH SCH (13:05)
[2023-07-07] MEDS ORDERED: CARVEDILOL 3.125 MG TABLET (FP) ONE ×2 (13:15→20:41)
[2023-07-07] MEDS: CARVEDILOL 3.125 MG TABLET (FP) PO SCH ×2 (13:39→21:12)
[2023-07-07] MEDS: EMPAGLIFLOZIN (JARDIANCE) 10 MG TABLET PO SCH (13:39)
[2023-07-07] MEDS ORDERED: APIXABAN 2.5 MG TABLET ONE (20:41)
[2023-07-08] MEDS: APIXABAN 2.5 MG TABLET PO SCH ×2 (09:17→21:28)
[2023-07-08] MEDS: CARVEDILOL 3.125 MG TABLET (FP) PO SCH ×2 (09:17→21:28)
[2023-07-08] MEDS: ASPIRIN COATED 81 MG TABLET.EC PO SCH (09:17)
[2023-07-08] MEDS: FUROSEMIDE 40 MG/4 ML INJECTABLE VIAL IVPUSH SCH (09:17)
[2023-07-08] MEDS: EMPAGLIFLOZIN (JARDIANCE) 10 MG TABLET PO SCH (09:18)
[2023-07-08 10:05] LABS: CALCIUM 9.1 mg/dL (8.5-10.1)
[2023-07-08 10:06] LABS: BLOOD UREA NITROGEN 40.7 mg/dL (7-18)
[2023-07-08 10:09] LABS: CREATININE 2.1 mg/dL (0.55-1.3)
[2023-07-09] MEDS: FUROSEMIDE 40 MG/4 ML INJECTABLE VIAL IVPUSH SCH ×2 (10:00→21:41)
[2023-07-09] MEDS: ASPIRIN COATED 81 MG TABLET.EC PO SCH (10:01)
[2023-07-09] MEDS: APIXABAN 2.5 MG TABLET PO SCH ×2 (10:01→21:41)
[2023-07-09] MEDS: EMPAGLIFLOZIN (JARDIANCE) 10 MG TABLET PO SCH (10:01)
[2023-07-09] MEDS: ERTAPENEM SODIUM 0.5 GM in SODIUM CHLORIDE 50 ML IVPB SCH (12:14)
[2023-07-09] MEDS: CARVEDILOL 3.125 MG TABLET (FP) PO SCH ×2 (12:14→21:41)
[2023-07-09] MEDS: SODIUM CHLORIDE NASAL SPRAY 44 ML BOTTLE NS SCH ×2 (12:14→21:41)
[2023-07-09] MEDS: MAG HYDROX/AL HYDROX/SIMETH 30 ML UNIT-DOSE CUP PO PRN (17:49)
[2023-07-10] MEDS: APIXABAN 2.5 MG TABLET PO SCH ×2 (09:58→21:01)
[2023-07-10] MEDS: ASPIRIN COATED 81 MG TABLET.EC PO SCH (09:58)
[2023-07-10] MEDS: CARVEDILOL 3.125 MG TABLET (FP) PO SCH ×2 (09:58→21:01)
[2023-07-10] MEDS: EMPAGLIFLOZIN (JARDIANCE) 10 MG TABLET PO SCH (09:58)
[2023-07-10] MEDS: FUROSEMIDE 40 MG/4 ML INJECTABLE VIAL IVPUSH SCH ×2 (09:59→14:02)
[2023-07-10] MEDS: SODIUM CHLORIDE NASAL SPRAY 44 ML BOTTLE NS SCH ×2 (10:00→21:01)
[2023-07-10] MEDS: ERTAPENEM SODIUM 0.5 GM in SODIUM CHLORIDE 50 ML IVPB SCH (10:30)
[2023-07-10] MEDS: MAG HYDROX/AL HYDROX/SIMETH 30 ML UNIT-DOSE CUP PO PRN (18:06)
[2023-07-10] MEDS ORDERED: DOCUSATE SODIUM 100 MG CAPSULE (FP) PO PRN (18:13)
[2023-07-10] MEDS: SENNOSIDES 8.8 MG/5 ML SYRUP PO SCH (21:01)
[2023-07-11] MEDS ORDERED: PANTOPRAZOLE SODIUM 40 MG VIAL IVPUSH ONE (00:23)
[2023-07-11] MEDS: FUROSEMIDE 40 MG/4 ML INJECTABLE VIAL IVPUSH SCH ×2 (05:29→14:57)
[2023-07-11] MEDS: LEVOTHYROXINE NA 50 MCG TABLET (FP) PO SCH (06:01)
[2023-07-11 08:17] LABS: POTASSIUM 4.2 mmol/L (3.5-5.1)
[2023-07-11 08:18] LABS: BLOOD UREA NITROGEN 48.3 mg/dL (7-18); CALCIUM 9.2 mg/dL (8.5-10.1)
[2023-07-11 08:21] LABS: CREATININE 2.5 mg/dL (0.55-1.3)
[2023-07-11] MEDS: EMPAGLIFLOZIN (JARDIANCE) 10 MG TABLET PO SCH (09:13)
[2023-07-11] MEDS: CARVEDILOL 3.125 MG TABLET (FP) PO SCH ×2 (09:13→21:16)
[2023-07-11] MEDS: ASPIRIN COATED 81 MG TABLET.EC PO SCH (09:13)
[2023-07-11] MEDS: SODIUM CHLORIDE NASAL SPRAY 44 ML BOTTLE NS SCH ×2 (09:13→21:15)
[2023-07-11] MEDS: APIXABAN 2.5 MG TABLET PO SCH ×2 (09:13→21:16)
[2023-07-11] MEDS: ERTAPENEM SODIUM 0.5 GM in SODIUM CHLORIDE 50 ML IVPB SCH (10:10)
[2023-07-11] MEDS: MAG HYDROX/AL HYDROX/SIMETH 30 ML UNIT-DOSE CUP PO PRN (13:28)
[2023-07-11] MEDS: SENNOSIDES 8.8 MG/5 ML SYRUP PO SCH (21:16)
[2023-07-12] MEDS: FUROSEMIDE 40 MG/4 ML INJECTABLE VIAL IVPUSH SCH ×2 (05:11→14:24)
[2023-07-12] MEDS: LEVOTHYROXINE NA 50 MCG TABLET (FP) PO SCH (06:03)
[2023-07-12] MEDS: ASPIRIN COATED 81 MG TABLET.EC PO SCH (09:03)
[2023-07-12] MEDS: CARVEDILOL 3.125 MG TABLET (FP) PO SCH (09:03)
[2023-07-12] MEDS: APIXABAN 2.5 MG TABLET PO SCH (09:03)
[2023-07-12] MEDS: EMPAGLIFLOZIN (JARDIANCE) 10 MG TABLET PO SCH (09:04)
[2023-07-12] MEDS: SODIUM CHLORIDE NASAL SPRAY 44 ML BOTTLE NS SCH (09:04)
[2023-07-12] MEDS: ERTAPENEM SODIUM 0.5 GM in SODIUM CHLORIDE 50 ML IVPB SCH (09:06)
[2023-07-12 18:16] VITALS: PULSE 75; TEMP 97.6
[2023-07-12 20:31] VITALS: BP 94/70; RESP 19
[2023-07-13] MEDS ORDERED: FUROSEMIDE 40 MG TABLET (FP) PO SCH (10:00)
== END 2023-07-12 20:47 | DRG 291 ==
LOC: JER 11:42 → JERBED 16:02 → J4S 07-07 22:07
PROVIDERS: ADMIT Internal Medicine; ATTEND Internal Medicine
DX: I13.0 Hypertensive heart and chronic kidney disease with heart failure and stage 1 through stage 4 chronic kidney disease, or unspecified chronic kidney disease (principal); I50.33 Acute on chronic diastolic (congestive) heart failure; I24.89 Other forms of acute ischemic heart disease; I45.3 Trifascicular block; E78.5 Hyperlipidemia, unspecified; N18.1 Chronic kidney disease, stage 1; E03.9 Hypothyroidism, unspecified; I49.3 Ventricular premature depolarization; F41.8 Other specified anxiety disorders; E74.39 Other disorders of intestinal carbohydrate absorption; M10.9 Gout, unspecified; D69.6 Thrombocytopenia, unspecified; I25.10 Atherosclerotic heart disease of native coronary artery without angina pectoris; Z86.73 Personal history of transient ischemic attack (TIA), and cerebral infarction without residual deficits; Z95.0 Presence of cardiac pacemaker; Z95.2 Presence of prosthetic heart valve
CPT/HCPCS: 0241U-QW; 36415; 71045-TC-FY; 80048; 80053; 80061; 81003; 83036; 83735; 83880; 84100; 84439; 84443; 84484; 85025; 85027; 87086; 87186; 93005; 93010; 93306-TC; 97116-GP; 97162-GP; 99285-25